=== PATIENT | male | born 1950 | race Two or more races ===

== ENCOUNTER → 2016-08-14 | Outpatient (REF) | payer OTHER ==
[~2016-08-14] MED LIST: /QUIN20TA OR; /WARF5TA OR; ASPI81TA63 OR; BUME1TAB OR; CIPR500T4 OR; COLC0.6T OR; CRES40TA OR; FISH1000 OR; FLAG500T OR; GLUC1000 OR; JANUVIA PO; LOPR100T OR; POTA20TA2 OR; TRIC145T19 OR
[2016-08-17 14:40] LABS: PERCENT SATURATION 16.7 % (19.7-37.4)
== END ==
LOC: M LAB REF 13:21
PROVIDERS: ATTEND Internal Medicine Nephrology
DX: D64.9 Anemia, unspecified (principal)

== ENCOUNTER → 2016-08-19 | Outpatient (CLI) | payer OTHER ==
--- NOTE | 2016-08-19 13:44 | REP ---
RENAL AND BLADDER ULTRASOUND: Real-time sonographic evaluation of the kidneys is performed and demonstrates both kidneys to be normal in size and echotexture, right kidney measuring 10.6 x 5.4 x 4.8 cm and the left kidney 11.5 x 4.6 x 4.8 cm. There is no hydronephrosis bilaterally. A left renal cyst measures 6.0 x 4.2 x 6.5 cm, located laterally in the mid aspect of the left kidney. No definite stones are seen bilaterally. The urinary bladder is distended with no definite mass or calculus. IMPRESSION: No hydronephrosis. Left renal cyst. Signed by Weston Lang MD 08/19/2016 05:39 P
== END ==
LOC: M RAD 10:54
PROVIDERS: ATTEND Internal Medicine Nephrology
DX: N18.3 Chronic kidney disease, stage 3 (moderate) (principal); E11.22 Type 2 diabetes mellitus with diabetic chronic kidney disease; N28.1 Cyst of kidney, acquired

== ENCOUNTER → 2016-09-14 | Outpatient (REF) | payer OTHER | LOC: M SFHCPLAZ 14:16 | PROVIDERS: ATTEND Family Medicine | DX: E11.65 Type 2 diabetes mellitus with hyperglycemia (principal) ==

== ENCOUNTER → 2016-09-28 | Outpatient (REF) | payer OTHER ==
[2016-09-28 12:20] LABS: INR 1.9
== END ==
LOC: M SFHCPLAZ 09:20
PROVIDERS: ATTEND Family Medicine
DX: Z79.01 Long term (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 anticoagulants (principal)

== ENCOUNTER → 2017-03-05 | Outpatient (CLI) | payer OTHER ==
--- NOTE | 2017-03-11 16:09 | SLEEPCENT ---
DATE OF PROCEDURE: 03/05/2017 REFERRING PROVIDER: Dr. Cornelius Bahena INTERPRETATION: Nocturnal polysomnography was performed for the re-determination of CPAP pressure in this patient with obstructive sleep apnea with an apnea-hypopnea index (AHI) of 40, who had symptom recurrence despite being on CPAP at 18 cm of water pressure. A total of 8 hours and 2 minutes of data was reviewed with only 175.5 minutes of sleep identified. Sleep latency was 26 minutes. REM latency was 292.5 minutes. No slow wave sleep was identified. Sleep efficiency was markedly decreased at 36.8%. EKG showed normal sinus rhythm with an average heart rate of 66 beats per minute. Speeding and slowing was noted surrounding some respiratory events. No epileptiform discharge observed. The patient had been fit with a [employer]Med Quattro Air Fit F-10 full face mask of medium size, 16 cm of water pressure was applied to the circuit and the lights were dimmed. CPAP begun at 16 cm of water pressure was eventually increased to 19 cm of water pressure which appeared to be optimal. On pressure his AHI was 0.6 and his LINDSEY was 5.8. Oxygen saturation was 89%. Periodic limb movement index was increased at 20.8. Supine REM sleep was seen on this pressure with a reasonably good wave form. IMPRESSION: 1. Obstructive sleep apnea, severe, recently palliated on CPAP at 19 cm of water pressure. 2. Periodic limb movements, mild/moderate. RECOMMENDATIONS: Recommend resetting the patients CPAP pressure to 19 cm of water. Clinical correlation will be necessary to ensure eradication of symptoms.
== END ==
LOC: M SLEEP 19:35
PROVIDERS: ATTEND Internal Medicine Pulmonary Disease
DX: G47.33 Obstructive sleep apnea (adult) (pediatric) (principal)

== ENCOUNTER → 2017-04-14 | Outpatient (REF) | payer OTHER ==
[~2017-04-14] MED LIST changes: +ALLO10TA PO; +COUM6TAB PO; +INSUHUMDS SC; +METO25TA4 PO; +MONT10TA2 PO; +MULT1TAB10 PO; +OMEP40CA2 PO; +POLY150C4 PO; +RENEXA PO; +TOUJ1.2I SC; +TRUL0.5I SC; +VITA1CAP2 PO
== END ==
LOC: M SFHCPLAZ 11:31
PROVIDERS: ATTEND Family Medicine
DX: R41.3 Other amnesia (principal)

== ENCOUNTER 2017-04-27 08:52 | Day surgery (SDC) | payer OTHER ==
[~2017-04-27] VITALS: Ht 172.7 cm; Wt 137.4 kg
[~2017-04-27 08:52] MED LIST changes: +ACETAMINOPHEN 325 MG TAB PO PRN; +BSS with VANC/TOB/EPI for EYE CASES IR ONE; +CYCLOPENTOLATE 2% OPHTH SOLN 2ML BTL OS ONE; +LIDOCAINE 3.5 % 1ML OPHTH TOPICAL GEL OU ONE; +OFLOXACIN 0.3 % (OCUFLOX) OPTH SOL 5ML OS ONE; +PHENYLEPHRINE 2.5% OPHTH SOL 2ML OS ONE; +PHENYLEPHRINE HCL 10 % OPHTH. SOL 5ML OS PRN; +PROPARACAINE 0.5% OPHTH SOL 15ML OS PRN; +TROPICAMIDE 1% OPHTH SOLN 2ML OS ONE
[2017-04-27] MEDS ORDERED: AcetaZOLAMIDE 500 MG ER CAP PO ONE (09:00)
[2017-04-27] MEDS ORDERED: TRIMETHOBENZAMIDE 300 MG CAP PO PRN (09:00)
[2017-04-27 12:45] VITALS: BP 130/60
[2017-04-27] MEDS ORDERED: ONDANSETRON 4MG/2ML VIAL (J2405) IV PRN (12:45)
[2017-04-27] MEDS ORDERED: fentaNYL 100 MCG/2 ML INJECTION (J3010) As Ordered ONE (12:50)
[2017-04-27] MEDS ORDERED: MIDAZOLAM INJ 2 MG/2 ML VIAL (J2250) As Ordered ONE (12:50)
== END 2017-04-27 12:58 | disposition home or self-care (01) ==
LOC: M SDC 08:52
PROVIDERS: ATTEND Ophthalmology
DX: H26.9 Unspecified cataract (principal); I11.9 Hypertensive heart disease without heart failure; I12.9 Hypertensive chronic kidney disease with stage 1 through stage 4 chronic kidney disease, or unspecified chronic kidney disease; E11.40 Type 2 diabetes mellitus with diabetic neuropathy, unspecified; N18.4 Chronic kidney disease, stage 4 (severe); E78.00 Pure hypercholesterolemia, unspecified; M10.371 Gout due to renal impairment, right ankle and foot; K58.9 Irritable bowel syndrome, unspecified; K21.9 Gastro-esophageal reflux disease without esophagitis; D64.9 Anemia, unspecified; F41.9 Anxiety disorder, unspecified; F32.9 Major depressive disorder, single episode, unspecified; E66.01 Morbid (severe) obesity due to excess calories; R06.83 Snoring; I50.32 Chronic diastolic (congestive) heart failure; G47.33 Obstructive sleep apnea (adult) (pediatric); R41.3 Other amnesia; Z79.899 Other long term (current) drug therapy; Z79.82 Long term (current) use of aspirin; Z79.4 Long term (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 insulin; Z87.891 Personal history of nicotine dependence; Z86.718 Personal history of other venous thrombosis and embolism

== ENCOUNTER → 2017-05-19 | Outpatient (CLI) | payer OTHER ==
[~2017-05-19] MED LIST changes: -/QUIN20TA OR; -/WARF5TA OR; -ACETAMINOPHEN 325 MG TAB PO PRN; -ALLO10TA PO; -ASPI81TA63 OR; -BSS with VANC/TOB/EPI for EYE CASES IR ONE; -BUME1TAB OR; -CIPR500T4 OR; -COLC0.6T OR; -COUM6TAB PO; -CRES40TA OR; -CYCLOPENTOLATE 2% OPHTH SOLN 2ML BTL OS ONE; -FISH1000 OR; -FLAG500T OR; +GASTROGRAFIN SOLUTION 30ML (Q9963) As Ordered; -GLUC1000 OR; -INSUHUMDS SC; -JANUVIA PO; -LIDOCAINE 3.5 % 1ML OPHTH TOPICAL GEL OU ONE; -LOPR100T OR; -METO25TA4 PO; -MONT10TA2 PO; -MULT1TAB10 PO; -OFLOXACIN 0.3 % (OCUFLOX) OPTH SOL 5ML OS ONE; -OMEP40CA2 PO; -PHENYLEPHRINE 2.5% OPHTH SOL 2ML OS ONE; -PHENYLEPHRINE HCL 10 % OPHTH. SOL 5ML OS PRN; -POLY150C4 PO; -POTA20TA2 OR; -PROPARACAINE 0.5% OPHTH SOL 15ML OS PRN; -RENEXA PO; -TOUJ1.2I SC; -TRIC145T19 OR; -TROPICAMIDE 1% OPHTH SOLN 2ML OS ONE; -TRUL0.5I SC; -VITA1CAP2 PO
== END ==
LOC: M RAD 06:52
DX: N28.1 Cyst of kidney, acquired (principal); K76.9 Liver disease, unspecified
CPT/HCPCS: Q9963

== ENCOUNTER → 2017-06-24 | Outpatient (REF) | payer OTHER ==
[2017-06-24 20:33] LABS: TROPONIN I < 0.02 NG/ML (< 0.10)
== END ==
LOC: M LABDRWAD 18:47
DX: R07.9 Chest pain, unspecified (principal)

== ENCOUNTER → 2017-08-11 | Outpatient (CLI) | payer MEDICAID | LOC: M RAD 09:25 | DX: N28.1 Cyst of kidney, acquired (principal) | CPT/HCPCS: 76775 ==

== ENCOUNTER → 2017-09-02 | Outpatient (REF) | payer MEDICARE, OTHER ==
[2017-09-02 15:55] LABS: URIC ACID 6.3 MG/DL (3.5-7.2)
[2017-09-02 16:17] LABS: ESTIMATED AVERAGE GLUCOSE 134 MG/DL (60-110); HEMOGLOBIN A1c 6.3 %
[2017-09-02 16:20] LABS: CREATININE, URINE 72.2 MG/DL; MALB URINE SIEMENS 5.9 MG/L; MAU/CREAT RATIO 8.1 MCG/MG (0.0-30.0)
== END ==
LOC: M SFHCPLAZ 14:07
DX: Z51.81 Encounter for therapeutic drug level monitoring (principal); E11.21 Type 2 diabetes mellitus with diabetic nephropathy; N18.3 Chronic kidney disease, stage 3 (moderate); Z79.899 Other long term (current) drug therapy
CPT/HCPCS: 84550

== ENCOUNTER 2017-09-24 12:06 | Emergency (ER) | payer MEDICARE, MEDICAID, OTHER ==
[2017-09-24] MEDS: FUROSEMIDE 100 MG/10 ML VIAL (J1940) IV (12:58)
[2017-09-24 13:03] LABS: BASO % 0.4 % (0.0-1.0); EOS # 0.3 10^3/uL (0.0-0.50); EOS % 3.2 % (0.0-3.0); HEMATOCRIT 39.9 % (42.0-52.0); HEMOGLOBIN 13.7 g/dl (13.5-17.5); IMMATURE GRANULOCYTE % 0.2 % (0-3.0); LYMPH # 1.9 10^3/uL (1.5-4.5); LYMPH % 22.7 % (24.0-44.0); MEAN CORPUSCULAR HGB CONC 34.3 g/dl (32.0-36.5); MEAN CORPUSCULAR VOLUME 93.2 fl (80.0-96.0); MONO # 0.6 10^3/uL (0.0-0.8); MONO % 7.1 % (0.0-5.0); NEUTROPHILS # 5.5 10^3/uL (1.8-7.7); NEUTROPHILS % 66.4 % (36.0-66.0); PLATELET COUNT, AUTOMATED 202 10^3/uL (150-450); RED BLOOD COUNT 4.28 10^6/uL (4.30-6.10); WHITE BLOOD COUNT 8.3 10^3/uL (4.0-10.0)
[2017-09-24 13:18] LABS: ALBUMIN 3.3 GM/DL (3.2-5.2); ALBUMIN/GLOBULIN RATIO 0.72 (1.00-1.93); ALKALINE PHOSPHATASE 149 U/L (45-117); ALT/SGPT 27 U/L (12-78); ANION GAP 6 MEQ/L (8-16); AST/SGOT 19 U/L (7-37); BILIRUBIN,DIRECT 0.1 MG/DL (0.0-0.2); BILIRUBIN,TOTAL 0.6 MG/DL (0.2-1.0); BLOOD UREA NITROGEN 21 MG/DL (7-18); CARBON DIOXIDE LEVEL 29 MEQ/L (21-32); CHLORIDE LEVEL 104 MEQ/L (98-107); CPK CREATINE PHOSPHOKINASE 109 U/L (39-308); CREATININE FOR GFR 1.75 MG/DL (0.70-1.30); GLOMERULAR FILTRATION RATE 41.9 (>49); GLUCOSE, FASTING 102 MG/DL (70-100); POTASSIUM SERUM 3.7 MEQ/L (3.5-5.1); SODIUM LEVEL 139 MEQ/L (136-145); TOTAL PROTEIN 7.9 GM/DL (6.4-8.2); TROPONIN I < 0.02 NG/ML (< 0.10)
[2017-09-24 13:24] LABS: CK-MB VALUE MASS < 1.0 NG/ML (<3.6); MB/CK RELATIVE INDEX 0.91 (< OR =4); NT-PRO BNP 81 PG/ML (<125)
== END 2017-09-24 16:00 | disposition home or self-care (01) ==
LOC: M ED 12:06
DX: I50.9 Heart failure, unspecified (principal); I27.81 Cor pulmonale (chronic); R60.0 Localized edema; J44.9 Chronic obstructive pulmonary disease, unspecified; I13.10 Hypertensive heart and chronic kidney disease without heart failure, with stage 1 through stage 4 chronic kidney disease, or unspecified chronic kidney disease; E78.5 Hyperlipidemia, unspecified; K21.9 Gastro-esophageal reflux disease without esophagitis; N18.4 Chronic kidney disease, stage 4 (severe); G47.33 Obstructive sleep apnea (adult) (pediatric); E66.01 Morbid (severe) obesity due to excess calories; Z86.718 Personal history of other venous thrombosis and embolism; Z87.891 Personal history of nicotine dependence; Z88.8 Allergy status to other drugs, medicaments and biological substances; Z79.899 Other long term (current) drug therapy; Z79.82 Long term (current) use of aspirin; Z79.4 Long term (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 insulin; Z79.01 Long term (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 anticoagulants
CPT/HCPCS: J1940

== ENCOUNTER → 2017-10-20 | Outpatient (CLI) | payer MEDICARE, MEDICAID ==
[2017-10-20 13:48] LABS: D-DIMER QUANT 435.5 ng/ml (<500)
[2017-10-20 14:11] LABS: ANION GAP 11 MEQ/L (8-16); BLOOD UREA NITROGEN 20 MG/DL (7-18); CALCIUM LEVEL 8.6 MG/DL (8.8-10.2); CARBON DIOXIDE LEVEL 26 MEQ/L (21-32); CHLORIDE LEVEL 102 MEQ/L (98-107); CREATININE FOR GFR 2.05 MG/DL (0.70-1.30); GLOMERULAR FILTRATION RATE 34.9 (>49); GLUCOSE, FASTING 101 MG/DL (70-100); POTASSIUM SERUM 3.5 MEQ/L (3.5-5.1); SODIUM LEVEL 139 MEQ/L (136-145)
== END ==
LOC: M LAB 12:53
DX: R06.02 Shortness of breath (principal); N17.9 Acute kidney failure, unspecified
CPT/HCPCS: 80048

== ENCOUNTER → 2017-10-28 | Outpatient (REF) | payer MEDICARE, MEDICAID ==
[2017-10-28 12:44] LABS: ANION GAP 11 MEQ/L (8-16); BLOOD UREA NITROGEN 17 MG/DL (7-18); CALCIUM LEVEL 9.3 MG/DL (8.8-10.2); CARBON DIOXIDE LEVEL 30 MEQ/L (21-32); CHLORIDE LEVEL 100 MEQ/L (98-107); CREATININE FOR GFR 2.17 MG/DL (0.70-1.30); GLOMERULAR FILTRATION RATE 32.7 (>49); GLUCOSE, FASTING 101 MG/DL (70-100); POTASSIUM SERUM 3.2 MEQ/L (3.5-5.1); SODIUM LEVEL 141 MEQ/L (136-145)
== END ==
LOC: M SFHCPLAZ 10:43
DX: E11.65 Type 2 diabetes mellitus with hyperglycemia (principal); Z79.01 Long term (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 anticoagulants
CPT/HCPCS: 80048

== ENCOUNTER → 2017-11-10 | Outpatient (CLI) | payer MEDICARE, MEDICAID ==
[2017-11-10 14:22] LABS: BASO % 0.2 % (0.0-1.0); EOS % 0.1 % (0.0-3.0); HEMATOCRIT 44.8 % (42.0-52.0); HEMOGLOBIN 15.8 g/dl (13.5-17.5); IMMATURE GRANULOCYTE % 0.4 % (0-3.0); LYMPH # 1.4 10^3/uL (1.5-4.5); LYMPH % 8.7 % (24.0-44.0); MEAN CORPUSCULAR HEMOGLOBIN 31.9 pg (27.0-33.0); MEAN CORPUSCULAR HGB CONC 35.3 g/dl (32.0-36.5); MEAN CORPUSCULAR VOLUME 90.5 fl (80.0-96.0); MONO # 1.8 10^3/uL (0.0-0.8); MONO % 10.6 % (0.0-5.0); NEUTROPHILS # 13.2 10^3/uL (1.8-7.7); PLATELET COUNT, AUTOMATED 214 10^3/uL (150-450); RED BLOOD COUNT 4.95 10^6/uL (4.30-6.10); WHITE BLOOD COUNT 16.5 10^3/uL (4.0-10.0)
[2017-11-10 14:36] LABS: ANION GAP 11 MEQ/L (8-16); BLOOD UREA NITROGEN 26 MG/DL (7-18); CALCIUM LEVEL 8.9 MG/DL (8.8-10.2); CARBON DIOXIDE LEVEL 30 MEQ/L (21-32); CHLORIDE LEVEL 92 MEQ/L (98-107); CREATININE FOR GFR 2.71 MG/DL (0.70-1.30); GLOMERULAR FILTRATION RATE 25.3 (>49); GLUCOSE, FASTING 166 MG/DL (70-100); POTASSIUM SERUM 3.3 MEQ/L (3.5-5.1); SODIUM LEVEL 133 MEQ/L (136-145)
[2017-11-10 14:37] LABS: D-DIMER QUANT 409.1 ng/ml (<500)
== END ==
LOC: M LAB 13:17
DX: R25.2 Cramp and spasm (principal); R06.02 Shortness of breath
CPT/HCPCS: 71046

== ENCOUNTER → 2017-11-15 | Outpatient (REF) | payer MEDICARE, MEDICAID ==
[2017-11-15 16:21] LABS: ANION GAP 11 MEQ/L (8-16); BLOOD UREA NITROGEN 32 MG/DL (7-18); CALCIUM LEVEL 8.5 MG/DL (8.8-10.2); CARBON DIOXIDE LEVEL 24 MEQ/L (21-32); CHLORIDE LEVEL 104 MEQ/L (98-107); CREATININE FOR GFR 1.79 MG/DL (0.70-1.30); GLOMERULAR FILTRATION RATE 40.8 (>49); GLUCOSE, FASTING 198 MG/DL (70-100); POTASSIUM SERUM 4.1 MEQ/L (3.5-5.1); SODIUM LEVEL 139 MEQ/L (136-145)
== END ==
LOC: M SFHCPLAZ 14:52
DX: N17.9 Acute kidney failure, unspecified (principal); E87.6 Hypokalemia; E87.1 Hypo-osmolality and hyponatremia
CPT/HCPCS: 80048

== ENCOUNTER → 2017-11-22 | Outpatient (REF) | payer MEDICARE, MEDICAID ==
[2017-11-22 19:17] LABS: ANION GAP 7 MEQ/L (8-16); BLOOD UREA NITROGEN 13 MG/DL (7-18); CALCIUM LEVEL 8.5 MG/DL (8.8-10.2); CARBON DIOXIDE LEVEL 31 MEQ/L (21-32); CHLORIDE LEVEL 103 MEQ/L (98-107); CREATININE FOR GFR 1.45 MG/DL (0.70-1.30); GLUCOSE, FASTING 101 MG/DL (70-100); POTASSIUM SERUM 3.7 MEQ/L (3.5-5.1); SODIUM LEVEL 141 MEQ/L (136-145)
== END ==
LOC: M SFHCPLAZ 14:44
DX: N17.9 Acute kidney failure, unspecified (principal)
CPT/HCPCS: 80048

== ENCOUNTER 2017-12-23 09:51 | Day surgery (SDC) | payer MEDICARE, MEDICAID ==
[~2017-12-23 09:51] MED LIST changes: -GASTROGRAFIN SOLUTION 30ML (Q9963) As Ordered; +LIDOCAINE 2% INJ 100 MG/5 ML SDV (FOR ANES.) As Ordered; +PROPOFOL 200 MG/20 ML VIAL As Ordered
[2017-12-23] MEDS: NS 1,000 ML IV (10:30)
[2017-12-23 10:40] LABS: BEDSIDE GLUCOSE 113 MG/DL (80-115)
== END 2017-12-23 13:14 | disposition home or self-care (01) ==
LOC: M OPP 09:51
DX: Z12.11 Encounter for screening for malignant neoplasm of colon (principal); Z86.010 Personal history of colon polyps; Z80.0 Family history of malignant neoplasm of digestive organs; D12.5 Benign neoplasm of sigmoid colon; D12.3 Benign neoplasm of transverse colon; K57.30 Diverticulosis of large intestine without perforation or abscess without bleeding; K22.70 Barrett's esophagus without dysplasia; K22.8 Other specified diseases of esophagus; I11.0 Hypertensive heart disease with heart failure; I50.9 Heart failure, unspecified; I20.9 Angina pectoris, unspecified; R07.89 Other chest pain; E78.5 Hyperlipidemia, unspecified; E11.9 Type 2 diabetes mellitus without complications; M10.9 Gout, unspecified; K58.9 Irritable bowel syndrome, unspecified; K21.9 Gastro-esophageal reflux disease without esophagitis; R12 Heartburn; Z86.718 Personal history of other venous thrombosis and embolism; I65.29 Occlusion and stenosis of unspecified carotid artery; G62.9 Polyneuropathy, unspecified; R06.2 Wheezing; Z86.711 Personal history of pulmonary embolism; G47.8 Other sleep disorders; G47.30 Sleep apnea, unspecified; R06.83 Snoring; N18.4 Chronic kidney disease, stage 4 (severe); Z87.891 Personal history of nicotine dependence; Z88.8 Allergy status to other drugs, medicaments and biological substances; Z79.82 Long term (current) use of aspirin; Z79.899 Other long term (current) drug therapy; Z79.01 Long term (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 anticoagulants; Z79.4 Long term (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 insulin
CPT/HCPCS: 45385

== ENCOUNTER → 2018-01-03 | Outpatient (REF) | payer MEDICARE, MEDICAID | LOC: M SFHCPLAZ 14:05 | DX: R06.09 Other forms of dyspnea (principal); R53.82 Chronic fatigue, unspecified; E11.65 Type 2 diabetes mellitus with hyperglycemia; Z53.8 Procedure and treatment not carried out for other reasons ==

== ENCOUNTER → 2018-01-04 | Outpatient (REF) | payer MEDICARE, MEDICAID ==
[2018-01-04 12:12] LABS: BASO % 0.4 % (0.0-1.0); EOS # 0.2 10^3/uL (0.0-0.50); EOS % 2.6 % (0.0-3.0); HEMATOCRIT 42.7 % (42.0-52.0); HEMOGLOBIN 15.1 g/dl (13.5-17.5); IMMATURE GRANULOCYTE % 0.4 % (0-3.0); MEAN CORPUSCULAR HEMOGLOBIN 31.7 pg (27.0-33.0); MEAN CORPUSCULAR HGB CONC 35.4 g/dl (32.0-36.5); MEAN CORPUSCULAR VOLUME 89.7 fl (80.0-96.0); MONO # 0.8 10^3/uL (0.0-0.8); NEUTROPHILS # 6.3 10^3/uL (1.8-7.7); NEUTROPHILS % 67.6 % (36.0-66.0); PLATELET COUNT, AUTOMATED 248 10^3/uL (150-450); RED BLOOD COUNT 4.76 10^6/uL (4.30-6.10); RED CELL DISTRIBUTION WIDTH 12.4 % (11.5-14.5); WHITE BLOOD COUNT 9.4 10^3/uL (4.0-10.0)
[2018-01-04 12:33] LABS: ANION GAP 10 MEQ/L (8-16); BLOOD UREA NITROGEN 28 MG/DL (7-18); CARBON DIOXIDE LEVEL 30 MEQ/L (21-32); CHLORIDE LEVEL 98 MEQ/L (98-107); CREATININE FOR GFR 2.12 MG/DL (0.70-1.30); ESTIMATED AVERAGE GLUCOSE 180 MG/DL (60-110); FREE T4 1.09 NG/DL (0.76-1.46); GLOMERULAR FILTRATION RATE 33.5 (>49); GLUCOSE, FASTING 128 MG/DL (70-100); HEMOGLOBIN A1c 7.9 %; POTASSIUM SERUM 3.3 MEQ/L (3.5-5.1); SODIUM LEVEL 138 MEQ/L (136-145)
== END ==
LOC: M SFHCPLAZ 09:35
DX: Z51.81 Encounter for therapeutic drug level monitoring (principal); R06.09 Other forms of dyspnea; R53.82 Chronic fatigue, unspecified; E11.65 Type 2 diabetes mellitus with hyperglycemia
CPT/HCPCS: 84443

== ENCOUNTER → 2018-02-02 | Outpatient (REF) | payer MEDICARE, MEDICAID ==
[2018-02-02 16:14] LABS: ANION GAP 10 MEQ/L (8-16); BLOOD UREA NITROGEN 29 MG/DL (7-18); CALCIUM LEVEL 9.7 MG/DL (8.8-10.2); CARBON DIOXIDE LEVEL 29 MEQ/L (21-32); CHLORIDE LEVEL 95 MEQ/L (98-107); CPK CREATINE PHOSPHOKINASE 84 U/L (39-308); CREATININE FOR GFR 2.34 MG/DL (0.70-1.30); GLOMERULAR FILTRATION RATE 29.9 (>49); GLUCOSE, FASTING 147 MG/DL (70-100); MAGNESIUM LEVEL 2.2 MG/DL (1.8-2.4); POTASSIUM SERUM 4.6 MEQ/L (3.5-5.1); SODIUM LEVEL 134 MEQ/L (136-145)
== END ==
LOC: M SFHCPLAZ 13:01
DX: R25.2 Cramp and spasm (principal)
CPT/HCPCS: 82550

== ENCOUNTER → 2018-06-09 | Outpatient (CLI) | payer MEDICARE, MEDICAID ==
[~2018-06-09] MED LIST changes: +/QUIN20TA OR; +/WARF5TA OR; +ALLO10TA PO; +AMIL5TAB4 PO; +ASPI81TA63 PO; +ATOR40TA75 PO; +AUGM12SS PO; +BUME1TAB OR; +BUME1TAB PO; +BUME1TAB3 PO; +CALC1TAB63 PO; +CIPR500T4 OR; +COLC0.6T OR; +COUM1TAB17 PO; +COUM6TAB PO; +CRES40TA OR; +DOK100TA PO; +FEBU40TA PO; +FISH1000 OR; +FISH100049 PO; +FLAG500T OR; +GLUC1000 OR; +INSUHUMDS SC; +ISOS30TA4 PO; +JANUVIA PO; +JARD1TAB PO; +KLOR20TA42 PO; +LEVE1INJ5 SC; -LIDOCAINE 2% INJ 100 MG/5 ML SDV (FOR ANES.) As Ordered; +LOPR100T OR; +MAGN1CAP PO; +METO25TA PO; +METO25TA4 PO; +MONT10TA2 PO; +MULT1TAB10 PO; +NITR0.4D6 TD; +NITR0.4S14 SL; +OMEP40CA2 PO; +POLY150C4 PO; +POTA20TA2 OR; -PROPOFOL 200 MG/20 ML VIAL As Ordered; +RANE1000 PO; +RENEXA PO; +TOUJ1.2I SC; +TRES1INJ; +TRIC145T19 OR; +TRUL0.5I SC; +VITA100067 PO; +VITA1CAP2 PO
[2018-06-09 12:23] LABS: CREATININE, URINE 19.7 MG/DL; MALB URINE SIEMENS < 5.0 MG/L; MAU/CREAT RATIO 25.3 MCG/MG (0.0-30.0)
[2018-06-09 12:45] LABS: HEMOGLOBIN A1c 10.8 %
--- NOTE | 2018-06-09 15:03 | REP ---
RIGHT KNEE, FIVE VIEWS: HISTORY: Pain. There is no acute fracture or dislocation. There is moderate narrowing of the medial and minimal narrowing of the lateral knee joint space. The patellofemoral joint space is normal in appearance. Osteophytes are present on the tibia and patella. IMPRESSION: Degenerative change as described above. Electronically Signed by Dominick Camilo MD 06/09/2018 03:18 P
== END ==
LOC: M LAB 10:59
PROVIDERS: ATTEND Family Medicine
DX: E11.65 Type 2 diabetes mellitus with hyperglycemia (principal); M17.11 Unilateral primary osteoarthritis, right knee

== ENCOUNTER 2018-07-21 13:21 | Emergency (ER) | payer MEDICARE, MEDICAID ==
[~2018-07-21] VITALS: Ht 172.7 cm; Wt 140.9 kg
[~2018-07-21 13:21] MED LIST changes: -TAMI30CA PO; -ZOFR4TAB16 PO
[2018-07-21] MEDS ORDERED: OSELTAMIVIR PHOSPHATE 30MG CAPSULE PO ONE (14:45)
[2018-07-21 14:48] LABS: BASO # 0.1 10^3/uL (0.0-0.2); BASO % 0.8 % (0.0-1.0); EOS # 0.1 10^3/uL (0.0-0.50); EOS % 1.4 % (0.0-3.0); HEMATOCRIT 50.6 % (42.0-52.0); HEMOGLOBIN 17.1 g/dl (13.5-17.5); LYMPH # 1.2 10^3/uL (1.5-4.5); LYMPH % 16.2 % (24.0-44.0); MEAN CORPUSCULAR HEMOGLOBIN 30.5 pg (27.0-33.0); MEAN CORPUSCULAR HGB CONC 33.8 g/dl (32.0-36.5); MEAN CORPUSCULAR VOLUME 90.4 fl (80.0-96.0); MONO # 1.2 10^3/uL (0.0-0.8); MONO % 16.3 % (0.0-5.0); NEUTROPHILS # 4.7 10^3/uL (1.8-7.7); NEUTROPHILS % 64.9 % (36.0-66.0); PLATELET COUNT, AUTOMATED 188 10^3/uL (150-450); WHITE BLOOD COUNT 7.2 10^3/uL (4.0-10.0)
[2018-07-21] MEDS ORDERED: TAMI30CA PO (14:57)
[2018-07-21 14:58] LABS: CREATININE FOR GFR 2.61 MG/DL (0.70-1.30); GLOMERULAR FILTRATION RATE 26.4 (>49); POTASSIUM SERUM 4.3 MEQ/L (3.5-5.1)
[2018-07-21 14:59] LABS: ALBUMIN 3.4 GM/DL (3.2-5.2); BILIRUBIN,TOTAL 0.6 MG/DL (0.2-1.0); CALCIUM LEVEL 8.9 MG/DL (8.8-10.2)
[2018-07-21] MEDS ORDERED: NS 1,000 ML IV ONE (15:00)
[2018-07-21] MEDS: IPRATROPIUM 0.5MG/ALBUTEROL 2.5MG INH SOL UD 3ML (DUONEB)(J7620) NEB PRN ×3 (15:06→16:18)
--- NOTE | 2018-07-21 15:28 | REP ---
Chest x-ray: Two views. History: Cough and wheezing. Rule out pneumonia. Comparison chest x-ray: November 10, 2017. Findings: The lungs are symmetrically aerated and clear. The pleural angles are sharp. Heart size is normal. The aorta slightly tortuous. There are minimal degenerative changes in the thoracic spine. Impression: No active disease. Electronically Signed by Tristin Juan MD 07/21/2018 03:19 P
[2018-07-21 16:25] VITALS: BP 138/82
[2018-07-21] MEDS ORDERED: ZOFR4TAB16 PO (17:39)
== END 2018-07-21 17:35 | disposition home or self-care (01) ==
LOC: M ED 13:21
DX: J09.X2 Influenza due to identified novel influenza A virus with other respiratory manifestations (principal); I11.0 Hypertensive heart disease with heart failure; I50.9 Heart failure, unspecified; I65.29 Occlusion and stenosis of unspecified carotid artery; K21.9 Gastro-esophageal reflux disease without esophagitis; N18.4 Chronic kidney disease, stage 4 (severe); E11.22 Type 2 diabetes mellitus with diabetic chronic kidney disease; F41.9 Anxiety disorder, unspecified; F32.9 Major depressive disorder, single episode, unspecified; D75.9 Disease of blood and blood-forming organs, unspecified; G47.33 Obstructive sleep apnea (adult) (pediatric); Z86.711 Personal history of pulmonary embolism; Z88.8 Allergy status to other drugs, medicaments and biological substances; Z79.899 Other long term (current) drug therapy; Z79.01 Long term (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 anticoagulants; Z79.82 Long term (current) use of aspirin; Z79.4 Long term (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 insulin; Z87.891 Personal history of nicotine dependence

== ENCOUNTER → 2018-07-21 | Outpatient (REF) | payer MEDICARE, MEDICAID ==
[~2018-07-21] MED LIST changes: +TAMI30CA PO; +ZOFR4TAB16 PO
[2018-07-21 18:49] LABS: BACTERIA, URINE AUTO NEGATIVE (NEGATIVE); RBC, URINE AUTO 1 /HPF (0-3); SQUAMOUS EPITHELIAL CELL UR AU 0 /HPF (0-6); WBC, URINE AUTO 1 /HPF (0-3)
== END ==
LOC: M SFHCPLAZ 17:15
PROVIDERS: ATTEND Family Medicine
DX: R34 Anuria and oliguria (principal)

== ENCOUNTER → 2018-09-29 | Outpatient (REF) | payer MEDICARE, MEDICAID ==
[~2018-09-29] MED LIST changes: -/QUIN20TA OR; -/WARF5TA OR; +ACCU1TAB2 OR; +COUM1TAB17 OR; +TAMI30CA PO; +VITA-183 PO; -VITA1CAP2 PO; +ZOFR4TAB16 PO
== END ==
LOC: M LAB REF 13:24
PROVIDERS: ATTEND Internal Medicine Nephrology
DX: Z80.42 Family history of malignant neoplasm of prostate (principal); Z12.5 Encounter for screening for malignant neoplasm of prostate

== ENCOUNTER → 2019-02-09 | Outpatient (CLI) | payer MEDICARE, MEDICAID ==
[~2019-02-09] MED LIST changes: -FEBU40TA PO; +FEBU40TA4 PO; -OMEP40CA2 PO; +OMEP40CA97 PO
--- NOTE | 2019-02-09 13:03 | REP ---
Right shoulder: Three views. History: Dysfunction of the right rotator cuff. No comparison study. Findings: There is moderate osteoarthritis of the right glenohumeral articulation with sclerosis and spur formation of the humeral head and glenoid. There is also osteoarthritis of the AC joint. The glenohumeral and acromioclavicular joints are normally aligned. Periarticular soft tissues are unremarkable. Impression: Moderate osteoarthritis affecting the glenohumeral and acromioclavicular joints. Electronically Signed by Tristin Juan MD 02/09/2019 01:30 P
== END ==
LOC: M LAB 10:55
PROVIDERS: ATTEND Family Medicine
DX: M19.011 Primary osteoarthritis, right shoulder (principal)

== ENCOUNTER → 2019-02-16 | Outpatient (REF) | payer MEDICARE, MEDICAID ==
[2019-02-16 16:06] LABS: CALCIUM LEVEL 9.6 MG/DL (8.8-10.2); CREATININE FOR GFR 2.7 MG/DL (0.70-1.30); GLOMERULAR FILTRATION RATE 25.3 (>49); MAGNESIUM LEVEL 2.1 MG/DL (1.8-2.4); PHOSPHORUS LEVEL 2.4 MG/DL (2.5-4.9); POTASSIUM SERUM 3.6 MEQ/L (3.5-5.1); URIC ACID 9.3 MG/DL (3.5-7.2)
[2019-02-16 16:12] LABS: TOTAL 25(OH) VITAMIN D 35.3 NG/ML (30.0-100.0)
[2019-02-16 16:13] LABS: PTH INTACT 51.9 PG/ML (18.5-88.0)
== END ==
LOC: M SFHCPLAZ 14:49
PROVIDERS: ATTEND Family Medicine
DX: E11.21 Type 2 diabetes mellitus with diabetic nephropathy (principal); E11.65 Type 2 diabetes mellitus with hyperglycemia; E83.39 Other disorders of phosphorus metabolism; M1A.9XX0 Chronic gout, unspecified, without tophus (tophi); Z12.5 Encounter for screening for malignant neoplasm of prostate
CPT/HCPCS: 36415; 80048; 82306; 83036; 83519; 83735; 83970; 84100; 84550; 93005; G0103

== ENCOUNTER → 2019-03-09 | Outpatient (CLI) | payer MEDICARE, MEDICAID ==
[2019-03-09 11:54] LABS: TOTAL PROTEIN 7.7 GM/DL (6.4-8.2)
[2019-03-09 11:59] LABS: FOLATE 23.4 NG/ML; VITAMIN B12 LEVEL 728 PG/ML
[2019-03-14 00:07] LABS: CERULOPLASMIN 30.4 mg/dL (16.0-31.0); COPPER PLASMA 123 ug/dL (72-166); LEAD BLOOD ADULT 2 ug/dL (0-4); MERCURY LEVEL None Detected ug/L (0.0-14.9); VITAMIN B1 LEVEL WHOLE BLOOD 174.9 nmol/L (66.5-200.0); VITAMIN B6,PYRIDOXAL PHOSPHATE 7.2 ug/L (5.3-46.7); VITAMIN E(ALPHA TOCOPHEROL) 19.8 mg/L (9.0-29.0); VITAMIN E(GAMMA TOCOPHEROL) 1.1 mg/L (0.5-4.9)
[2019-03-14 13:39] LABS: ALBUMIN 3.78 GM/DL (3.29-5.55); ALBUMIN % 49.1 % (55.8-66.1); ALPHA-1-GLOBULIN % 4.3 % (2.9-4.9); ALPHA-1-GLOBULINS 0.33 GM/DL (0.17-0.41); ALPHA-2-GLOBULINS 1.01 GM/DL (0.42-0.99); ALPHA-2-GLOBULINS % 13.1 % (7.1-11.8); BETA-1-GLOBULINS 0.51 GM/DL (0.28-0.60); BETA-1-GLOBULINS % 6.6 % (4.7-7.2); BETA-2-GLOBULINS 0.69 GM/DL (0.19-0.55); BETA-2-GLOBULINS % 8.9 % (3.2-6.5); GAMMA GLOBULINS 1.39 GM/DL (0.65-1.58)
== END ==
LOC: M LAB 10:32
PROVIDERS: ATTEND Psychiatry & Neurology Neurology
DX: G62.9 Polyneuropathy, unspecified (principal); E83.01 Wilson's disease; E53.8 Deficiency of other specified B group vitamins; E51.9 Thiamine deficiency, unspecified
CPT/HCPCS: 36415; 82390; 82525; 82607; 82746; 83655; 83825; 84165; 84207; 84425; 84446; G0463

== ENCOUNTER → 2019-04-07 | Outpatient (CLI) | payer MEDICARE, MEDICAID ==
--- NOTE | 2019-04-07 13:56 | REP ---
MRI cervical spine: 04/07/2019. Indication: Ataxia. Neck pain. Comparison: New none. Technique: Multiplanar short and long TR sequences of the cervical spine were obtained without IV Gadolinium. Findings: There is reversal of the cervical lordosis. Disc desiccation and disc space narrowing are present throughout most pronounced at C6/C7. No abnormal cord signal is present. The left vertebral flow void is intermittently absent. The right vertebral artery is dominant. C2/C3: There is no disc herniation or significant spinal canal / neural foraminal narrowing. C3/C4: There is an asymmetric disc bulge more apparent on the left with left-sided facet arthropathy. There is moderate narrowing of the left neural foramen. C4/C5: There is right-sided uncovertebral and facet hypertrophy which results in mild to moderate right neural foraminal narrowing. There is mild diffuse disc bulge otherwise noted with effacement of the ventral thecal sac. C5/C6: There is a left paracentral/foraminal disc extrusion with very minimal caudal migration superimposed on a diffuse disc bulge. There is moderate to severe left neural foraminal narrowing and minimal flattening of the left ventral lateral cord. C6/C7: Left-sided uncovertebral proliferation and mild diffuse disc bulge are present with mild effacement of the ventral thecal sac. There is moderate to severe left neural foraminal narrowing. C7/T1: There is an asymmetric disc osteophyte complex more pronounced on the right without significant spinal canal narrowing. There is moderate right neural foraminal narrowing. Impression: Multilevel degenerative sequelae of the cervical spine as described most pronounced on the left at C5/C6 and C6/C7. Electronically Signed by Remberto Child DO 04/07/2019 01:47 P
--- NOTE | 2019-04-07 14:16 | REP ---
MRI lumbar spine: 04/07/2019. Indication: Ataxia. Low back pain. Comparison: None. Technique: Multiplanar short and long TR sequences of the lumbar spine were obtained without IV Gadolinium. Findings: There is mild straightening of the lumbar lordosis. Disc space narrowing, disc desiccation and endplate degenerative sequelae are present throughout. The visualized cord is unremarkable. Left renal parapelvic cyst is present. Very minimal thoracolumbar idiopathic scoliosis is noted. There is a transitional lumbosacral segment with partial lumbarization of S1 and a S1/S2 disc. L1/L2: Disc and spur complex, most prominent anteriorly and bilateral facet arthropathy are present. There is a far left lateral/marginal small annular fissure. There is moderate to severe right and moderate left recess narrowing. Moderate bilateral neural foraminal narrowing is present. L2/L3: Diffuse disc and spur complex and mild bilateral facet arthropathy are present with moderate to severe right greater than left recess narrowing. Mild bilateral neural foraminal narrowing is present. L3/L4: Diffuse disc and spur complex and bilateral facet arthropathy are present. There is a small synovial cyst within the right lateral spinal canal. There is severe narrowing of the spinal canal. Moderate bilateral neural foraminal narrowing is present. L4/L5: There is an asymmetric disc and spur complex more prominent on the right with right greater than left facet hypertrophy and ligamental laxity. There is severe right and moderate to severe left recess narrowing. Moderate bilateral neural foraminal narrowing is noted. L5/S1: Diffuse disc and spur complex and bilateral facet arthropathy are present with moderate to severe left and moderate right recess narrowing. Moderate bilateral neural foraminal narrowing is present. Impression: Multilevel degenerative sequelae of the lumbar spine as described most pronounced at L3/L4 with severe spinal canal narrowing. Transitional lumbosacral segment as described. Any future surgery/procedures should correlate with plain film radiography accordingly. Electronically Signed by Remberto Child DO 04/07/2019 02:07 P
== END ==
LOC: M PLARAD 09:56
PROVIDERS: ATTEND Psychiatry & Neurology Neurology
DX: M54.2 Cervicalgia (principal); M43.02 Spondylolysis, cervical region; R26.0 Ataxic gait; M48.062 Spinal stenosis, lumbar region with neurogenic claudication; M54.5 Low back pain

== ENCOUNTER → 2019-05-23 | Outpatient (REF) | payer MEDICARE, MEDICAID ==
[2019-05-23 18:18] LABS: ALBUMIN 2.9 GM/DL (3.2-5.2); CALCIUM LEVEL 8.9 MG/DL (8.8-10.2); CREATININE FOR GFR 2.23 MG/DL (0.70-1.30); GLOMERULAR FILTRATION RATE 31.5 (>49); MAGNESIUM LEVEL 1.9 MG/DL (1.8-2.4); PHOSPHORUS LEVEL 2.4 MG/DL (2.5-4.9); POTASSIUM SERUM 3.4 MEQ/L (3.5-5.1); URIC ACID 8.5 MG/DL (3.5-7.2)
== END ==
LOC: M LAB REF 17:16
PROVIDERS: ATTEND Internal Medicine Nephrology
DX: N18.3 Chronic kidney disease, stage 3 (moderate) (principal); E79.0 Hyperuricemia without signs of inflammatory arthritis and tophaceous disease

== ENCOUNTER → 2019-07-10 | Outpatient (CLI) | payer MEDICARE, MEDICAID ==
[~2019-07-10] MED LIST changes: -MONT10TA2 PO; +MONT10TA4 PO
[2019-07-10 13:44] LABS: INR 2.24; PROTHROMBIN TIME 24.6 SECONDS (11.8-14.0)
== END ==
LOC: M PLALAB 11:34
PROVIDERS: ATTEND Student in an Organized Health Care Education/Training Program
DX: Z51.81 Encounter for therapeutic drug level monitoring (principal); Z79.01 Long term (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 anticoagulants

== ENCOUNTER → 2019-07-27 | Outpatient (CLI) | payer MEDICARE, MEDICAID ==
[2019-07-27 17:54] LABS: HEMATOCRIT 45.9 % (42.0-52.0); MEAN CORPUSCULAR HEMOGLOBIN 31.9 pg (27.0-33.0); MEAN CORPUSCULAR HGB CONC 34.9 g/dl (32.0-36.5); MEAN CORPUSCULAR VOLUME 91.4 fl (80.0-96.0); PLATELET COUNT, AUTOMATED 237 10^3/uL (150-450); RED BLOOD COUNT 5.02 10^6/uL (4.30-6.10); WHITE BLOOD COUNT 11.4 10^3/uL (4.0-10.0)
[2019-07-27 18:00] LABS: ALBUMIN 2.9 GM/DL (3.2-5.2); ALT/SGPT 41 U/L (12-78); BILIRUBIN,TOTAL 0.7 MG/DL (0.2-1.0); BLOOD UREA NITROGEN 30 MG/DL (7-18); CALCIUM LEVEL 9.5 MG/DL (8.8-10.2); CARBON DIOXIDE LEVEL 29 MEQ/L (21-32); CHLORIDE LEVEL 98 MEQ/L (98-107); CK-MB VALUE MASS < 1.0 NG/ML (<3.6); CPK CREATINE PHOSPHOKINASE 115 U/L (39-308); CREATININE FOR GFR 2.17 MG/DL (0.70-1.30); FREE T4 1.23 NG/DL (0.76-1.46); GLOMERULAR FILTRATION RATE 32.6 (>49); GLUCOSE, FASTING 142 MG/DL (70-100); MB/CK RELATIVE INDEX 0.87 (< OR =4); NT-PRO BNP 90 PG/ML (<125); POTASSIUM SERUM 3.6 MEQ/L (3.5-5.1); SODIUM LEVEL 134 MEQ/L (136-145); TOTAL PROTEIN 7.2 GM/DL (6.4-8.2); TROPONIN I < 0.02 NG/ML (< 0.10)
--- NOTE | 2019-07-27 19:24 | REPVR ---
PROCEDURE INFORMATION: Exam: CT Chest Without Contrast Exam date and time: 07/27/2019 6:19 PM Age: 68 years old Clinical indication: Shortness of breath; Additional info: Shortness of breath ? pe TECHNIQUE: Imaging protocol: Computed tomography of the chest without contrast. 3D rendering: MIP and/or 3D reconstructed images were created by the technologist. Radiation optimization: All CT scans at this facility use at least one of these dose optimization techniques: automated exposure control; mA and/or kV adjustment per patient size (includes targeted exams where dose is matched to clinical indication); or iterative reconstruction. COMPARISON: CT Chest without contrast 10/05/2017 1:16 PM FINDINGS: Lungs: 3 mm nodule in the right upper lobe. Pleural space: Unremarkable. No pneumothorax. No pleural effusion. Heart: Coronary vasculature calcifications. Aorta: Unremarkable. No aortic aneurysm. Lymph nodes: Unremarkable. No enlarged lymph nodes. Bones/joints: Unremarkable. No acute fracture. Soft tissues: Unremarkable. IMPRESSION: No acute abnormality. Nodule in the right upper lobe measuring 3 mm.For patients at low risk (minimal or absent history of smoking and of other known risk factors), no routine follow-up is indicated. For patients at high risk (history of smoking or of other known risk factors), consider optional CT at 12 months. (Iveth et al., Fleischner Society, 2017) Electronically signed by: Bunny Richards On 07/27/2019 19:24:22 PM
== END ==
LOC: M LAB 15:11
PROVIDERS: ATTEND Internal Medicine
DX: R91.1 Solitary pulmonary nodule (principal); R06.02 Shortness of breath; Z79.01 Long term (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 anticoagulants; Z79.899 Other long term (current) drug therapy
CPT/HCPCS: 36415; 71250; 80053; 82550; 82553; 83880; 84439; 84443; 84484; 85027; 85610; 93005; G0463

== ENCOUNTER → 2019-07-27 | Outpatient (REF) | payer MEDICARE, MEDICAID | LOC: M SFHCPLAZ 14:43 | DX: R06.02 Shortness of breath (principal); Z79.01 Long term (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 anticoagulants; Z53.8 Procedure and treatment not carried out for other reasons ==

== ENCOUNTER → 2019-08-08 | Outpatient (CLI) | payer MEDICARE, MEDICAID ==
[2019-08-08 17:54] LABS: CHOLESTEROL RISK RATIO 4.073 (<5)
== END ==
LOC: M PLALAB 13:54
PROVIDERS: ATTEND Nurse Practitioner Family
DX: E78.2 Mixed hyperlipidemia (principal)

== ENCOUNTER → 2019-09-27 | Outpatient (CLI) | payer MEDICARE, MEDICAID | LOC: M LABSMTC 10:53 | PROVIDERS: ATTEND Family Medicine | DX: Z11.59 Encounter for screening for other viral diseases (principal) ==

== ENCOUNTER → 2019-09-27 | Outpatient (REF) | payer MEDICARE, MEDICAID ==
[~2019-09-27] MED LIST changes: +ASPI-161 PO; +ASPI81TAEC PO; +ATOR80TA59 PO; +CLOP75TA2 PO; -COUM6TAB PO; +COUM6TAB10 PO; +DIGO0.123 PO; -DOK100TA PO; +DOK100TA2 PO; +FEBU40TA2 PO; +GABA-282 PO; +HUMU500S2 SC; +ISOS1TAB35 PO; +ISOS1TAB36 PO; -ISOS30TA4 PO; +KLOR10TA76 PO; +MAGN500T12 PO; +MONT10TA10 PO; -MONT10TA4 PO; +OMEG10002 PO; +POTA20TA6 PO; +RISATAB3 PO; +SITA50TAB PO; +VITMTA PO; +WARF-20 PO; +WARF-23 PO; +ZYLO300T6 PO
== END ==
LOC: M SFHCPLAZ 16:55
PROVIDERS: ATTEND Student in an Organized Health Care Education/Training Program
DX: L30.8 Other specified dermatitis (principal); R21 Rash and other nonspecific skin eruption; Z11.59 Encounter for screening for other viral diseases
CPT/HCPCS: 11104; 88305; G0463; U0003

== ENCOUNTER → 2019-09-28 | Outpatient (CLI) | payer MEDICARE, MEDICAID ==
[~2019-09-28] MED LIST changes: -ASPI-161 PO; -ASPI81TAEC PO; -ATOR80TA59 PO; -CLOP75TA2 PO; +COUM6TAB PO; -COUM6TAB10 PO; -DIGO0.123 PO; +DOK100TA PO; -DOK100TA2 PO; -FEBU40TA2 PO; -GABA-282 PO; -HUMU500S2 SC; -ISOS1TAB35 PO; -ISOS1TAB36 PO; +ISOS30TA4 PO; -KLOR10TA76 PO; -MAGN500T12 PO; -MONT10TA10 PO; +MONT10TA4 PO; -OMEG10002 PO; -POTA20TA6 PO; -RISATAB3 PO; -SITA50TAB PO; -VITMTA PO; -WARF-20 PO; -WARF-23 PO; -ZYLO300T6 PO
[2019-09-30 00:07] LABS: ANA (HEP2) Positive (.)
== END ==
LOC: M LAB 09:09
PROVIDERS: ATTEND Dermatology
DX: R21 Rash and other nonspecific skin eruption (principal)

== ENCOUNTER → 2019-10-17 | Outpatient (CLI) | payer MEDICARE, MEDICAID ==
[~2019-10-17] MED LIST changes: -COUM6TAB PO; +COUM6TAB10 PO
[2019-10-17 12:07] LABS: CHOLESTEROL RISK RATIO 4.157 (<5)
== END ==
LOC: M PLALAB 08:45
PROVIDERS: ATTEND Nurse Practitioner Family
DX: E78.2 Mixed hyperlipidemia (principal)

== ENCOUNTER → 2019-10-19 | Outpatient (REF) | payer MEDICARE, MEDICAID ==
[~2019-10-19] MED LIST changes: +ASPI-161 PO; +ASPI81TAEC PO; +ATOR80TA59 PO; +CLOP75TA2 PO; +DIGO0.123 PO; -DOK100TA PO; +DOK100TA2 PO; +FEBU40TA2 PO; +GABA-282 PO; +HUMU500S2 SC; +ISOS1TAB35 PO; +ISOS1TAB36 PO; -ISOS30TA4 PO; +KLOR10TA76 PO; +MAGN500T12 PO; +MONT10TA10 PO; -MONT10TA4 PO; +OMEG10002 PO; +POTA20TA6 PO; +RISATAB3 PO; +SITA50TAB PO; +VITMTA PO; +WARF-20 PO; +WARF-23 PO; +ZYLO300T6 PO
[2019-10-19 17:55] LABS: BASO # 0.1 10^3/uL (0.0-0.2); BASO % 0.6 % (0.0-1.0); EOS # 0.3 10^3/uL (0.0-0.5); EOS % 3.4 % (0.0-3.0); HEMATOCRIT 43.3 % (42.0-52.0); HEMOGLOBIN 14.5 g/dl (13.5-17.5); LYMPH # 1.8 10^3/uL (1.5-5.0); LYMPH % 20.8 % (24.0-44.0); MEAN CORPUSCULAR HEMOGLOBIN 31.9 pg (27.0-33.0); MEAN CORPUSCULAR HGB CONC 33.5 g/dl (32.0-36.5); MEAN CORPUSCULAR VOLUME 95.4 fl (80.0-96.0); MONO # 0.6 10^3/uL (0.0-0.8); MONO % 6.8 % (0.0-5.0); NEUTROPHILS # 5.8 10^3/uL (1.5-8.5); NEUTROPHILS % 67.9 % (36.0-66.0); PLATELET COUNT, AUTOMATED 215 10^3/uL (150-450); RED BLOOD COUNT 4.54 10^6/uL (4.30-6.10); WHITE BLOOD COUNT 8.5 10^3/uL (4.0-10.0)
[2019-10-19 18:02] LABS: BILIRUBIN,TOTAL 0.5 MG/DL (0.2-1.0); C REACTIVE PROTEIN QUANTITATIV 1.52 MG/DL (0.00-0.30); CALCIUM LEVEL 9.2 MG/DL (8.8-10.2); CREATININE FOR GFR 2.07 MG/DL (0.70-1.30); GLOMERULAR FILTRATION RATE 34.3 (>49); POTASSIUM SERUM 3.7 MEQ/L (3.5-5.1)
[2019-10-19 18:18] LABS: ERYTHROCYTE SEDIMENTATION RATE 44 mm/hr (0-20)
[2019-10-24 13:33] LABS: ANTI DS-DNA AB Negative (Negative); ANTI-HISTONE ANTIBODIES 3.3 Units (0.0-0.9); RNP ANTIBODY 0.2 AI (0.0-0.9); SMITHS ANTIBODY < 0.2 AI (0.0-0.9); SSA SJOGRENS A <0.2 AI (0.0-0.9); SSB SJOGRENS B <0.2 AI (0.0-0.9)
== END ==
LOC: M SFHCRHEU 12:18
PROVIDERS: ATTEND Internal Medicine
DX: R76.8 Other specified abnormal immunological findings in serum (principal)
CPT/HCPCS: 36415; 80053; 83520; 85025; 85652; 86140; 86160; 86225; 86235; 86255; G0463

== ENCOUNTER → 2019-10-30 | Outpatient (CLI) | payer MEDICARE, MEDICAID ==
[~2019-10-30] MED LIST changes: -ASPI-161 PO; -ASPI81TAEC PO; -ATOR80TA59 PO; +CLOP75TA2; -CLOP75TA2 PO; -DIGO0.123 PO; +DOK100TA PO; -DOK100TA2 PO; -FEBU40TA2 PO; -GABA-282 PO; +GABA-843; -HUMU500S2 SC; +HUMU500S2 SQ; -ISOS1TAB35 PO; -ISOS1TAB36 PO; +ISOS30TA4 PO; +ISOS60TA2; -KLOR10TA76 PO; -MAGN500T12 PO; +METO25TA4; -MONT10TA10 PO; +MONT10TA4 PO; -OMEG10002 PO; -POTA20TA6 PO; -RISATAB3 PO; -SITA50TAB PO; -VITMTA PO; -WARF-20 PO; -WARF-23 PO; +ZYLO300T6; -ZYLO300T6 PO
[2019-10-30 13:35] LABS: CREATININE FOR GFR 2.08 MG/DL (0.70-1.30); GLOMERULAR FILTRATION RATE 34.1 (>49)
== END ==
LOC: M PLALAB 10:42
PROVIDERS: ATTEND Internal Medicine Cardiovascular Disease
DX: Z79.899 Other long term (current) drug therapy (principal)

== ENCOUNTER 2020-01-23 10:34 | Emergency (ER) | payer MEDICARE, MEDICAID ==
[~2020-01-23] VITALS: Ht 177.8 cm; Wt 154.4 kg
[~2020-01-23 10:34] MED LIST changes: -CLOP75TA2; -GABA-843; -HUMU500S2 SQ; -ISOS60TA2; -METO25TA4; -ZYLO300T6
[2020-01-23] MEDS ORDERED: HUMU500S2 SQ (11:57)
[2020-01-23] MEDS ORDERED: GABA-843 (11:57)
[2020-01-23] MEDS ORDERED: ISOS60TA2 (11:57)
[2020-01-23] MEDS ORDERED: CLOP75TA2 (11:57)
[2020-01-23] MEDS ORDERED: METO25TA4 (11:57)
[2020-01-23 12:06] LABS: BASO # 0.1 10^3/uL (0.0-0.2); BASO % 0.7 % (0.0-1.0); EOS # 0.3 10^3/uL (0.0-0.5); EOS % 3.2 % (0.0-3.0); HEMATOCRIT 48.3 % (42.0-52.0); HEMOGLOBIN 16.3 g/dl (13.5-17.5); LYMPH # 1.7 10^3/uL (1.5-5.0); LYMPH % 18.1 % (24.0-44.0); MEAN CORPUSCULAR HEMOGLOBIN 32.1 pg (27.0-33.0); MEAN CORPUSCULAR HGB CONC 33.7 g/dl (32.0-36.5); MEAN CORPUSCULAR VOLUME 95.3 fl (80.0-96.0); MONO # 0.7 10^3/uL (0.0-0.8); MONO % 7.2 % (0.0-5.0); NEUTROPHILS # 6.7 10^3/uL (1.5-8.5); NEUTROPHILS % 70.4 % (36.0-66.0); PLATELET COUNT, AUTOMATED 213 10^3/uL (150-450); RED BLOOD COUNT 5.07 10^6/uL (4.30-6.10); WHITE BLOOD COUNT 9.6 10^3/uL (4.0-10.0)
[2020-01-23 12:39] LABS: ALBUMIN 3.3 GM/DL (3.2-5.2); BILIRUBIN,DIRECT 0.2 MG/DL (0.0-0.2); BILIRUBIN,TOTAL 0.8 MG/DL (0.2-1.0); TOTAL PROTEIN 7.5 GM/DL (6.4-8.2)
--- NOTE | 2020-01-23 13:30 | REPVR ---
PROCEDURE INFORMATION: Exam: CT Abdomen And Pelvis Without Contrast Exam date and time: 01/23/2020 12:59 PM Age: 69 years old Clinical indication: Abdominal pain; Generalized; Additional info: Abd pain with diarrhea; Ckd unable to have contrast; TECHNIQUE: Imaging protocol: Computed tomography of the abdomen and pelvis without contrast. Radiation optimization: All CT scans at this facility use at least one of these dose optimization techniques: automated exposure control; mA and/or kV adjustment per patient size (includes targeted exams where dose is matched to clinical indication); or iterative reconstruction. COMPARISON: CT ABD PELVIS W/O CONTRAST 05/19/2017 9:10 AM FINDINGS: Liver: Moderate diffuse hypoattenuation of the liver is present consistent with hepatic steatosis. Gallbladder and bile ducts: Normal. No calcified stones. No ductal dilation. Pancreas: Moderate pancreatic atrophy. Spleen: Normal. No splenomegaly. Adrenals: Normal. No mass. Kidneys and ureters: Left renal probable benign simple cysts, largest 6.9 cm, right renal probable benign cyst, 2.1 cm. 5.5 mm lateral mid left renal exophytic isoattenuating lesion, stable. Stomach and bowel: Sigmoid and distal descending colonic diverticula are present without evidence of diverticulitis. Appendix: The vermiform appendix is normal. Intraperitoneal space: Unremarkable. No free air. No significant fluid collection. Vasculature: Moderate aortic atherosclerotic calcification without aneurysm. The iliac arteries show moderate bilateral atherosclerotic calcifications without evidence of aneurysm. Atherosclerotic calcifications are present involving the RCA coronary artery. Lymph nodes: No enlarged lymph nodes. Bladder: Unremarkable as visualized. Reproductive: Unremarkable as visualized. Bones/joints: Anterior bridging bilateral sacroiliac joint marginal osteophytes. L4-L5 and L5-S1 spondylosis with bilateral neural foraminal stenosis. Left femoral neck herniation pit, a normal variant. Soft tissues: Unremarkable. IMPRESSION: 1. Fatty infiltration of the liver. 2. Bilateral renal probable benign simple cyst. 3. Small indeterminate left renal lesion, stable. 4. Diverticulosis. 5. Coronary atherosclerosis. COMMENTS: Consistent with the [employer]'s Incidental Findings Committee white paper (J Am Klaudia Radiol 2018): Any incidental renal lesion less than 1 cm or classified as too small to characterize, or any incidental cystic renal lesion characterized as simple-appearing, is likely benign. No follow-up imaging is recommended for these lesions per consensus recommendations based on imaging criteria. Electronically signed by: Nathen Castañeda On 01/23/2020 13:30:36 PM
[2020-01-23 15:22] VITALS: BP 108/56
--- NOTE | 2020-01-24 13:59 | ED PDOC ---
Post-Departure Follow-Up ct abd/p faxed to dr yadav for fu Lorrie Avendaño MD Jan 24, 2020 13:59
[2020-03-13] MEDS ORDERED: ZYLO300T6 (09:57)
== END 2020-01-23 15:25 | disposition home or self-care (01) ==
LOC: M ED 10:34
DX: R10.9 Unspecified abdominal pain (principal); I50.9 Heart failure, unspecified; E11.9 Type 2 diabetes mellitus without complications; I10 Essential (primary) hypertension; E78.5 Hyperlipidemia, unspecified; K21.9 Gastro-esophageal reflux disease without esophagitis; N18.2 Chronic kidney disease, stage 2 (mild); Z95.5 Presence of coronary angioplasty implant and graft; K76.0 Fatty (change of) liver, not elsewhere classified; K57.30 Diverticulosis of large intestine without perforation or abscess without bleeding; I25.10 Atherosclerotic heart disease of native coronary artery without angina pectoris; R93.421 Abnormal radiologic findings on diagnostic imaging of right kidney; R93.422 Abnormal radiologic findings on diagnostic imaging of left kidney; Z79.82 Long term (current) use of aspirin; Z79.4 Long term (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 insulin; Z79.01 Long term (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 anticoagulants; Z79.899 Other long term (current) drug therapy; Z88.8 Allergy status to other drugs, medicaments and biological substances

== ENCOUNTER → 2020-01-24 | Outpatient (REF) | payer MEDICARE, MEDICAID ==
[~2020-01-24] MED LIST changes: +CLOP75TA2; +GABA-843; +HUMU500S2 SQ; +ISOS60TA2; +METO25TA4; +ZYLO300T6
== END ==
LOC: M LAB REF 12:39
PROVIDERS: ATTEND Nurse Practitioner Family
DX: R19.7 Diarrhea, unspecified (principal)

== ENCOUNTER → 2020-01-31 | Outpatient (REF) | payer MEDICARE, MEDICAID ==
[2020-02-09 15:07] LABS: CALPROTECTIN STOOL 106 ug/g (0-120); FATS NEUTRAL Normal (.); FATS TOTAL Normal (.); PANCREATIC ELASTASE STOOL 252 (>200)
== END ==
LOC: M LAB REF 12:37
PROVIDERS: ATTEND Physician Assistant Medical
DX: R19.7 Diarrhea, unspecified (principal)

== ENCOUNTER → 2020-03-21 | Outpatient (CLI) | payer MEDICARE, MEDICAID | LOC: M LABSMTC 11:35 | PROVIDERS: ATTEND Anesthesiology | DX: Z01.812 Encounter for preprocedural laboratory examination (principal); Z20.828 Contact with and (suspected) exposure to other viral communicable diseases | CPT/HCPCS: C9803; U0003 ==

== ENCOUNTER 2020-03-26 07:41 | Day surgery (SDC) | payer MEDICARE, MEDICAID ==
[~2020-03-26] VITALS: Ht 180.3 cm; Wt 152.4 kg
[~2020-03-26 07:41] MED LIST changes: +NS 1,000 ML IV ONE; +SIMETHICONE 40MG/0.6ML DROPS 30ML As Ordered ONE
[2020-03-26] MEDS ORDERED: propofoL 200 MG/20 ML VIAL As Ordered ONE ×3 (08:11→08:58)
[2020-03-26] MEDS ORDERED: LIDOCAINE 2% 100MG/5ML SDV (FOR ANES.) As Ordered ONE (08:12)
--- NOTE | 2020-03-26 09:09 | ROOR ---
Patient Name: Myriam Galindo Procedure Date: 03/26/2020 8:24 AM Date of : 1950 Age: 69 Room: [facility] Gender: Male Note Status: Finalized Procedure: Colonoscopy Indications: Change in bowel habits, Chronic diarrhea Providers: Nolberto PIKE MD Referring MD: Marc Frey Do Requesting Provider: Medicines: Monitored Anesthesia Care Complications: No immediate complications. Procedure: Pre-Anesthesia Assessment: - The heart rate, respiratory rate, oxygen saturations, blood pressure, adequacy of pulmonary ventilation, and response to care were monitored throughout the procedure. The Colonoscope was introduced through the anus and advanced to 10 cm into the ileum. The colonoscopy was performed without difficulty. The patient tolerated the procedure well. The quality of the bowel preparation was good. Findings: The perianal and digital rectal examinations were normal. Four semi-sessile polyps were found in the splenic flexure and ileocecal valve. The polyps were 4 to 6 mm in size. These polyps were removed with a cold snare. Resection and retrieval were complete. To prevent bleeding after the polypectomy, six hemostatic clips were successfully placed. There was no bleeding at the end of the procedure. Multiple small and large-mouthed diverticula were found in the sigmoid colon and descending colon. Small Internal Hemorrhoids. Biopsies for histology were taken with a cold forceps for evaluation of microscopic colitis. The terminal ileum appeared normal. Impression: - Four 4 to 6 mm polyps at the splenic flexure and at the ileocecal valve, removed with a cold snare. Resected and retrieved. Clips were placed. - Moderate diverticulosis in the sigmoid colon and in the descending colon. - Small Internal Hemorrhoids. - The colon was otherwise normal. - The examined portion of the ileum was normal. - Biopsies were taken with a cold forceps for evaluation of microscopic colitis. Recommendation: - Repeat colonoscopy in 3 years for surveillance. - Telephone endoscopist for pathology results in 2 weeks. - Imodium 1 tablet PO BID. Nolberto Pike MD Nolberto PIKE MD 03/26/2020 9:08:34 AM Electronically signed by Nolberto PIKE MD Number of Addenda: 0 Note Initiated On: 03/26/2020 8:24 AM Estimated Blood Loss: Estimated blood loss: none.
[2020-03-26 09:35] VITALS: BP 121/58
== END 2020-03-26 09:40 | disposition home or self-care (01) ==
LOC: M OPP 07:41
PROVIDERS: ATTEND Internal Medicine Gastroenterology
DX: D12.0 Benign neoplasm of cecum (principal); D12.3 Benign neoplasm of transverse colon; K63.89 Other specified diseases of intestine; K57.30 Diverticulosis of large intestine without perforation or abscess without bleeding; K64.8 Other hemorrhoids; K52.9 Noninfective gastroenteritis and colitis, unspecified; R19.4 Change in bowel habit; I50.9 Heart failure, unspecified; E11.9 Type 2 diabetes mellitus without complications; G47.30 Sleep apnea, unspecified; Z80.0 Family history of malignant neoplasm of digestive organs; Z79.4 Long term (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 insulin; Z79.01 Long term (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 anticoagulants; Z79.899 Other long term (current) drug therapy

== ENCOUNTER → 2020-04-25 | Outpatient (CLI) | payer MEDICARE, MEDICAID ==
[~2020-04-25] MED LIST changes: -DOK100TA PO; +DOK100TA2 PO; -MONT10TA4 PO; +MONT5TAB2 PO; -NS 1,000 ML IV ONE; -SIMETHICONE 40MG/0.6ML DROPS 30ML As Ordered ONE
[2020-04-25 18:24] LABS: ALBUMIN 3.3 GM/DL (3.2-5.2); BILIRUBIN,TOTAL 0.6 MG/DL (0.2-1.0); CHOLESTEROL RISK RATIO 3.952 (<5); CREATININE FOR GFR 2.03 MG/DL (0.70-1.30); POTASSIUM SERUM 3.8 MEQ/L (3.5-5.1); TOTAL PROTEIN 7.2 GM/DL (6.4-8.2)
== END ==
LOC: M PLALAB 15:03
PROVIDERS: ATTEND Nurse Practitioner Family
DX: E78.2 Mixed hyperlipidemia (principal)

== ENCOUNTER 2020-05-02 12:01 | Inpatient (IN) | payer MEDICARE, MEDICAID ==
[~2020-05-02] VITALS: Ht 177.8 cm; Wt 147.7 kg
[~2020-05-02 12:01] MED LIST changes: -CLOP75TA2; +CLOP75TA2 PO; -GABA-843; +GABA-843 PO; +HUMU500S2 SC; -HUMU500S2 SQ; -ISOS60TA2; +ISOS60TA2 PO; -METO25TA4; -ZYLO300T6; +ZYLO300T6 PO
[2020-05-02 13:05] LABS: BASO % 0.2 % (0.0-1.0); EOS % 0.1 % (0.0-3.0); HEMATOCRIT 46.9 % (42.0-52.0); HEMOGLOBIN 15.8 g/dl (13.5-17.5); LYMPH # 0.6 10^3/uL (1.5-5.0); LYMPH % 3.4 % (24.0-44.0); MEAN CORPUSCULAR HEMOGLOBIN 32.2 pg (27.0-33.0); MEAN CORPUSCULAR HGB CONC 33.7 g/dl (32.0-36.5); MEAN CORPUSCULAR VOLUME 95.5 fl (80.0-96.0); MONO # 0.9 10^3/uL (0.0-0.8); MONO % 4.6 % (0.0-5.0); NEUTROPHILS # 17.4 10^3/uL (1.5-8.5); PLATELET COUNT, AUTOMATED 173 10^3/uL (150-450); RED BLOOD COUNT 4.91 10^6/uL (4.30-6.10); WHITE BLOOD COUNT 19.1 10^3/uL (4.0-10.0)
[2020-05-02 13:15] LABS: INR 2.21
[2020-05-02 13:16] LABS: PARTIAL THROMBOPLASTIN TIME 48.6 SECONDS (24.2-38.5)
--- NOTE | 2020-05-02 13:18 | REP ---
INDICATION: CVA - Nursing interventions must not delay CT. COMPARISON: None. TECHNIQUE: Helical scanning is acquired. 5 mm axial images were reformatted. Coronal MPR images were generated. FINDINGS: Bone window settings demonstrate an intact bony calvarium. There is no evidence of skull fracture or incidental bony calvarial lesion. The visualized paranasal sinuses appear clear. No intraorbital abnormality is seen. On soft tissue window setting images; the lateral, third, and fourth ventricles are normal in size and position. Lang-white differentiation pattern is normal above and below the tentorium. There are is no evidence of intracranial hemorrhage. No mass, edema, infarction, or midline shift is seen. No extra-axial fluid collection is appreciated. There is minimal generalized volume loss. No other finding. IMPRESSION: Minimal generalized volume loss. Otherwise negative noncontrast head CT.. <Electronically signed by Gurvinder Juan > 05/02/20 [id number]
--- NOTE | 2020-05-02 13:20 | REP ---
INDICATION: trauma. COMPARISON: None. TECHNIQUE: Helical scanning is acquired and overlapping 2 mm high resolution axial images were generated and reviewed at bone and soft tissue window settings. Coronal and sagittal multiplanar re-formations images are generated. FINDINGS: There is no evidence of cervical spine element fracture. No skull base fracture is seen. Cervical vertebral body heights are preserved. Alignment is normal. Facet joints are normally aligned bilaterally at each cervical level on multiplanar re-formations images. There is no evidence of intraspinal or paraspinal hematoma. No extra vertebral abnormality is seen. There is fairly advanced degenerative spondylosis with degenerative disc disease most pronounced at the C5-6 C6-7 and C7-T1 levels. There is mild to moderate osteoarthritic facet hypertrophy bilaterally. On the right this is most pronounced at C3-4 and C5-6 and on the left at C4-5. No fracture or malalignment is seen. IMPRESSION: Degenerative spondylosis changes. No traumatic abnormality noted. Some straightening.. <Electronically signed by Gurvinder Juan > 05/02/20 [id number]
[2020-05-02 13:49] LABS: CALCIUM LEVEL 8.9 MG/DL (8.8-10.2); CK-MB VALUE MASS 13.2 NG/ML (<3.6); CREATININE FOR GFR 2.98 MG/DL (0.70-1.30); FREE T4 1.45 NG/DL (0.76-1.46); GLOMERULAR FILTRATION RATE 22.5 (>49); MB/CK RELATIVE INDEX 0.21 (< OR =4); THYROID STIMULATING HORMONE 1.28 uIU/ML (0.358-3.740); TROPONIN I 0.03 NG/ML (< 0.10)
--- NOTE | 2020-05-02 13:56 | REP ---
INDICATION: R leg pain r/o DVT. COMPARISON: None. TECHNIQUE: Right lower extremity duplex venous sonography. FINDINGS: The deep veins are anechoic and fully compressible from the groin to the popliteal fossa in the right lower extremity. Color flow imaging is homogeneous. Spectral Doppler interrogation demonstrates intact respiratory variation in flow and normal manual augmentation of flow. There is no evidence of deep vein thrombosis. IMPRESSION: Negative right lower extremity duplex venous ultrasound. No evidence of deep vein thrombosis. <Electronically signed by Gurvinder Juan > 05/02/20 [id number]
--- NOTE | 2020-05-02 14:22 | REP ---
INDICATION: trauma. COMPARISON: Abdomen and pelvis CT dated 01/23/2020. TECHNIQUE: AP view of the pelvis and AP and frog-leg views of the right hip FINDINGS: No pelvic fractures are identified on the AP view of the pelvis. There may be partial fusion of the sacroiliac joints bilaterally. There is no fracture or dislocation on the AP and frog-leg views of the right hip. Mineralization is normal. IMPRESSION: No pelvic or hip fractures. Question partial fusion of the sacroiliac joints. <Electronically signed by Weston Jorge > 05/02/20 [id number]
--- NOTE | 2020-05-02 14:25 | REP ---
INDICATION: CVA. COMPARISON: PA and lateral chest dated 07/21/2018. TECHNIQUE: Two supine AP views of the chest. FINDINGS: Cardiac size is magnified by positioning. The lung wheat are clear. The samuel, mediastinum, and skeletal structures are unremarkable. IMPRESSION: There are no acute cardiopulmonary findings. <Electronically signed by Weston Jorge > 05/02/20 [id number]
[2020-05-02] MEDS ORDERED: NS 1,000 ML IV SCH (14:27)
[2020-05-02] MEDS ORDERED: OMEG10002 PO (14:39)
[2020-05-02] MEDS ORDERED: WARF-23 PO ×2 (14:39)
[2020-05-02] MEDS ORDERED: ATOR80TA59 PO (14:39)
[2020-05-02] MEDS ORDERED: POTA20TA6 PO ×2 (14:39)
[2020-05-02] MEDS ORDERED: ASPI-161 PO (14:39)
[2020-05-02] MEDS ORDERED: MAGN500T12 PO (14:39)
[2020-05-02] MEDS ORDERED: VITMTA PO (14:39)
[2020-05-02] MEDS ORDERED: AMIL5TAB4 PO (14:39)
--- NOTE | 2020-05-02 16:08 | REPVR ---
PROCEDURE INFORMATION: Exam: MR Head Without Contrast Exam date and time: 05/02/2020 3:24 PM Age: 69 years old Clinical indication: Weakness, extremity; Right; Additional info: CVA TECHNIQUE: Imaging protocol: MR of the head without contrast. COMPARISON: CT Head without contrast 05/02/2020 12:42 PM FINDINGS: Brain: No acute infarct identified on the diffusion-weighted imaging. No parenchymal hemorrhage. The brain demonstrates mild generalized volume loss. No significant white matter disease for the patient's age. Cerebral ventricles: The ventricles are mildly enlarged in keeping with volume loss. Bones/joints: Unremarkable. Paranasal sinuses: Small retention cyst or polyp in the left maxillary sinus. Trace ethmoid mucosal thickening. Mastoid air cells: Trace right mastoid effusion. Orbits: Thinning of the lenses of the globes consistent with prior lens surgery. Soft tissues: Unremarkable. IMPRESSION: No evidence of acute infarct. Electronically signed by: Joan Coker On 05/02/2020 16:08:21 PM
--- NOTE | 2020-05-02 16:15 | REPVR ---
PROCEDURE INFORMATION: Exam: MR Angiogram Head Without Contrast, Arteries Exam date and time: 05/02/2020 3:24 PM Age: 69 years old Clinical indication: Weakness; Additional info: CVA TECHNIQUE: Imaging protocol: MR angiogram head without contrast. Exam focused on the arteries. COMPARISON: CT Head without contrast 05/02/2020 12:42 PM FINDINGS: ANTERIOR CIRCULATION: Right internal carotid artery: Intracranial segment is patent with no significant stenosis. No aneurysm. Right middle cerebral artery: No occlusion or significant stenosis. No aneurysm. Right anterior cerebral artery: No occlusion or significant stenosis. No aneurysm. Left internal carotid artery: Intracranial segment is patent with no significant stenosis. No aneurysm. Left middle cerebral artery: No occlusion or significant stenosis. No aneurysm. Left anterior cerebral artery: No occlusion or significant stenosis. No aneurysm. POSTERIOR CIRCULATION: Right vertebral artery: No occlusion or significant stenosis. No aneurysm. Left vertebral artery: No occlusion or significant stenosis. No aneurysm. Basilar artery: No occlusion or significant stenosis. No aneurysm. Right posterior cerebral artery: Dominant. No occlusion or significant stenosis. No aneurysm. Left posterior cerebral artery: Not visualized. IMPRESSION: Absence of flow related enhancement for the left vertebral artery may reflect occlusion or developmental hypoplasia. The anterior circulation is patent. Electronically signed by: Joan Coker On 05/02/2020 16:14:49 PM
--- NOTE | 2020-05-02 18:11 | HPEPDOC ---
[facility] Medical History & Physical Date of Admission May 02, 2020 Date of Service: May 02, 2020 History and Physical CHIEF COMPLAINT: Right leg weakness HISTORY OF PRESENT ILLNESS: This is a 69-year-old male HTN, CAD (stent 10/2019), IDDM, CKD4, CHFpEF, DVT/PE on Coumadin who presents to the ED for RLE weakness with falls at home. Patient woke up at midnight and felt weaker tells me to go for hours to get out of bed and when he managed to sit on the side of the bed and started to get up immediately fell down and felt as if his right leg gave in and fell and hit his head he didn't lose consciousness his daughter who lives nearby came by and helped him back onto the bed. He was down for 1 hour. He then went back to sleep for about 4 hours and woke up again to use the washroom a similar episode happened or took him a few hours to get out of the bed again and once again when he started to stand up his right leg gave out and he fell again but this time he did not hit his head. At this time his daughter called EMT to bring him to the hospital. He endorses that he has baseline weakness in his right lower extremity as well as bilateral peripheral neuropathy in his hands and feet however he's always been able to ambulate despite his weight using only a cane around the house and has never experienced this degree of right lower extremity weakness before. He also believes that his right upper extremity is a little weaker than usual but he can't be sure. He tells me he has not had any prior events such as this in the past. He denies any other weakness elsewhere and no trouble with swallowing and no headaches fevers or chills no chest pain no shortness of breath. Apart from the right lower extremity weakness and perhaps subtle right upper extremity weakness he feels well otherwise. He denies any upper or lower back pain. In the ED CT head was obtained was negative. MRI and MRA brain were also obtained and did not suggest an acute stroke. I discussed this case with Dr. Hills neurologist chief operations officer today and he suggested that this is likely a different etiology and stroke given the negative MRI. Perhaps the patient has an underlying spinal pathology and we will proceed to obtain MRI without contrast of his spine. [place] Maria syndrome does not present in this way with unilateral weakness. Of note patient did endorse a history of diarrhea over the past few weeks but it has remained unchanged and was advised by GI to avoid dairy products. Upon presentation the patient had very elevated blood sugars and perhaps of the MRI is unrevealing the patient might have had diabetic amyotrophy due to his blood sugars per my conversation with Dr. Hills. Patient will be admitted to the medical unit with telemetry monitoring for further investigations and management PAST MEDICAL HISTORY: CKD stage IV with history of IgA nephropathy follows with Dr. Szymanski exchange clerk Hypertension Hyperlipidemia Peripheral neuropathy Grade 1 diastolic heart failure with normal systolic function Coronary artery disease with stenting in October 2019 Obstructive sleep apnea on CPAP at home GERD History of DVT on Coumadin History of PE on Coumadin Insulin-dependent diabetes mellitus PAST SURGICAL HISTORY: Heart cath October 2019 with 1 stent placement Right eye cataract surgery 2016 Cardiac cath at [facility] in 2014 SOCIAL HISTORY: Endorses about 1 beer per week but no other alcohol use Denies tobacco use currently quit smoking over 10 years ago Denies illicit drug use Uses a cane to ambulate at home FAMILY HISTORY: Father CAD Mother CAD and diabetes Sister CAD 7 brothers patient unsure of their medical problems ALLERGIES: Please see below. REVIEW OF SYSTEMS: 10 point review of systems complete all negative otherwise stated in HPI HOME MEDICATIONS: Please see below. PHYSICAL EXAMINATION: Constitutional: Awake and alert, in no apparent distress ENT: Sclera are clear. Mucosa is moist. Respiratory: Lungs CTA bilaterally. No respiratory distress. No use of accessory muscles. Cardiovascular: RRR S1 and S2 are normal Gastrointestinal: Abdomen is soft, obese, non distended, non tender, BS present. Musculoskeletal: No Lower extremity edema Skin: Warm, dry. Some venous stasis changes on lower extremities without overlying signs of infection Neurologic exam: mental status: The patient is awake, alert, oriented to name, location, and date. Cranial nerves: Pupils are equal, round, and reactive to light. Extraocular muscles intact. Visual wheat full bilaterally. Smile is symmetrical. Tongue is midline. Intact sensation on both sides of face. Motor: At least 4+/5 in both upper and lower Left extremities without any drifting. Right lower extremity 3/5 strength. Right upper extremity 4/5 strength including deltoid and hand heel seater. Sensory: Decreased hand and feet sensation bilaterally Coordination: Skqzin-uy-bhrb grossly intact both hands LABORATORY DATA: See below. IMAGING: Duplex lower extremities, right. Impressions: Negative right lower extremity duplex venous ultrasound. No evidence of deep vein thrombosis. Hip,AP,LAT to include Pelvis RIGHT: IMPRESSION: No pelvic or hip fractures. Question partial fusion of the sacroiliac joints. CT Head without contrast 05/02/20 1228 IMPRESSION: Minimal generalized volume loss. Otherwise negative noncontrast head CT. CXR: There are no acute cardiopulmonary findings. CT Spine,cervical w/o contrast 05/02/20 1228: MICROBIOLOGY: Please see below. IMPRESSION: Degenerative spondylosis changes. No traumatic abnormality noted. Some straightening Exam: MR Head Without Contrast Exam date and time: 05/02/2020 3:24 PM IMPRESSION: No evidence of acute infarct. Exam: MR Angiogram Head Without Contrast, Arteries Exam date and time: 05/02/2020 3:24 PM IMPRESSION: Absence of flow related enhancement for the left vertebral artery may reflect occlusion or developmental hypoplasia. The anterior circulation is patent. ASSESSMENT/PLAN 69-year-old male HTN, CAD (stent 10/2019), IDDM, CKD4, CHFpEF, DVT/PE on Coumadin who presents to the ED for RLE weakness with falls at home. MRI not showing acute stroke. Patient will be admitted to the medical unit with telemetry monitoring for further investigations and management Acute # RLE/RUE weakness: RLE more profound and results in fall 2x at home. MRI negative for stroke. I discussed this case with Dr. Hills neurologist chief operations officer today and he suggested that this is likely a different etiology and stroke given the negative MRI. Perhaps the patient has an underlying spinal pathology and we will proceed to obtain MRI without contrast of his spine. [place] Maria syndrome does not present in this way with unilateral weakness. 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 Will need to work with PT/OT and likely will require rehabilitation prior to going home. Active # MENDEZ on CKD stage IV with history of IgA nephropathy follows with Dr. Szymanski exchange clerk: Cr up to ~3 from baseline of 2. Rhabdo likely contributing. IVFs, if not improving tomorrow with fluids will consult nephrology. # Rhabdomyolysis: CPK 6330 on admission. 2/2 two falls at home with prolonged downtime. IV fluids. Trend CPK. # Leukocytosis: 19.1 on admission. Could be reactive. Afebrile. I don't suspect an infection at this time but will obtain BCx, and UA. Fu procalcitonin. Hold ABx for now. # Poorly controlled IDDM: Uses Humulin 100 units twice a day. Given his weight and good follow-up with primary care I will go ahead and resume this high dose and monitor closely for hypoglycemia ISS. Frequent Accu-Cheks. Hypoglycemic precautions. Chronic # Hyponatremia: correct for hyperglycemia of 473 correct Na is 130-> 136 which is normal. # CHFpEF: Compensated. Resume home meds. # Coronary artery disease with stenting in October 2019: Dual antiplatelet therapy aspirin and Plavix and statin. # MENDEL: On CPAP at home. Can bring in any use home CPAP machine. # Hx DVT/PE: On Coumadin. Resume home dose 5 mg week long except Wednesday 2.5 mg. INR therapeutic goal 2-3. # History of persistent hypokalemia: We'll start with 40 Meq K by mouth daily a nd titrate as needed # Gout: Allopurinol # Hypertension: Continue home meds. Monitor and titrate # Peripheral neuropathy: gabapentin # Hyperlipidemia: Resume home statin. Lipid panel. # GERD: Continue home omeprazole dose. # DVT prophylaxis: On warfarin A Yousef Hospitalist Vital Signs Vital Signs Date Time Temp Pulse Resp B/P (MAP) Pulse Ox O2 Delivery O2 Flow Rate FiO2 05/02/20 16:17 97.7 05/02/20 16:15 85 24 94 Room Air 05/02/20 16:14 133/59 (83) Laboratory Data Labs 24H Laboratory Tests 2 05/02/20 12:42: Immature Granulocyte % (Auto) 0.7, Neutrophils (%) (Auto) 91.0H, Lymphocytes (%) (Auto) 3.4L, Monocytes (%) (Auto) 4.6, Eosinophils (%) (Auto) 0.1, Basophils (%) (Auto) 0.2, Neutrophils # (Auto) 17.4H, Lymphocytes # (Auto) 0.6L, Monocytes # (Auto) 0.9H, Eosinophils # (Auto) 0.0, Basophils # (Auto) 0.0, Nucleated Red Blood Cells % (auto) 0.0, Prothrombin Time 25.0H, Prothromb Time International Ratio 2.21, Activated Partial Thromboplast Time 48.6H, Anion Gap 16, Glomerular Filtration Rate 22.5L, Calcium Level 8.9, Total Creatine Kinase 6330H, Creatine Kinase MB 13.2H, Creatine Kinase MB Relative Index 0.21, Troponin I 0.03, Thyroid Stimulating Hormone (TSH) 1.280, Free Thyroxine 1.45 05/02/20 14:47: Bedside Glucose (Misc Panel) 356H CBC/BMP Laboratory Tests 05/02/20 12:42 Microbiology Microbiology 05/02/20 Respiratory Virus Panel (PCR) ([facility]) - Final, Complete Home Medications Scheduled Allopurinol (Zyloprim) 300 Mg Tablet, 300 MG PO DAILY Amiloride HCl (Amiloride HCl) 5 Mg Tab, 10 MG PO QAM Amiloride HCl (Amiloride HCl) 5 Mg Tablet, 5 MG PO QHS Aspirin (Aspirin EC) 81 Mg Tablet.dr, 81 MG PO DAILY Atorvastatin Calcium (Atorvastatin Calcium) 80 Mg Tablet, 80 MG PO DAILY Bumetanide (Bumetanide) 1 Mg Tab, 3 MG PO BID Calcium Carbonate/Vitamin D3 (Calcium 600-Vit D3 400 Tablet) 1 Tab Tab, 1 TAB PO DAILY Clopidogrel Bisulfate (Clopidogrel) 75 Mg Tablet, 75 MG PO DAILY Dulaglutide (Trulicity) 1.5 Mg/0.5 Ml Inj, 1.5 MG SC 1XWK MANOJ Gabapentin (Gabapentin) 300 Mg Capsule, 300 MG PO TID Insulin Human Lispro (Humalog) 1 Units/0.01 Ml Inj, 1 DOSE SC ACHS PER SLIDING SCALE - HAS RX FOR U-200 BUT ISN'T SURE WHICH ONE HE IS SUPPOSED TO BE TAKING. Insulin Human Regular (Humulin R U-500 Thanh) 500 Unit/1 Ml Insuln.pen, 100 UNITS SC BID Isosorbide Mononitrate (Isosorbide Mononitrate ER) 60 Mg Tab.er.24h, 60 MG PO DAILY Magnesium Oxide (Magnesium Oxide) 500 Mg Tablet, 1,000 MG PO BID Metolazone (Metolazone) 2.5 Mg Tab, 2.5 MG PO 3XW MON, WED, FRI Metoprolol Tartrate (Metoprolol Tartrate) 25 Mg Tablet, 25 MG PO BID Montelukast Sodium (Montelukast Sodium) 10 Mg Tab, 10 MG PO QHS Multivitamins (Thera M Plus Tablet) 1 Each Tablet, 1 TAB PO DAILY Buffalo-3/Dha/Epa/Fish Oil (Fish Oil 1,000 mg Softgel) 1 Each Capsule, 2,000 MG PO DAILY Omeprazole (Omeprazole) 40 Mg Cap, 40 MG PO BID Potassium Chloride (Klor-Con M20) 20 Meq Tabcr, 60 MEQ PO BID Potassium Chloride (Potassium Chloride) 20 Meq Tab.er.prt, 40 MEQ PO 2XW @NOON ON WED, WED, WED Potassium Chloride (Potassium Chloride) 20 Meq Tab.er.prt, 20 MEQ PO 4XWK @NOON ON WED, , , SAT Warfarin Sodium (Warfarin Sodium) 5 Mg Tablet, 5 MG PO 6XWK SUN, WED, , WED, , SAT Warfarin Sodium (Warfarin Sodium) 5 Mg Tablet, 2.5 MG PO 1XWK FRI Scheduled PRN Docusate Sodium (Dok) 100 Mg Tab, 100 MG PO BID PRN for CONSTIPATION Nitroglycerin (Nitroglycerin) 0.4 Mg Sub, 0.4 MG SL NITRO PRN for CHEST PAIN Allergies Coded Allergies: DANIELA Inhibitors (Verified Allergy, Unknown, 05/02/20) rash spironolactone (Verified Adverse Reaction, Unknown, 05/02/20) gynecomastia A-FIB/CHADSVASC A-FIB History Current/History of A-Fib/PAF?: No ADAM MCCULLOUGH MD May 02, 2020 18:11
[2020-05-02] MEDS ORDERED: GLUCOSE 4GM CHEW TABLET PO PRN (18:30)
[2020-05-02] MEDS ORDERED: GLUCAGON INJ 1MG VIAL SC PRN (18:30)
[2020-05-02] MEDS ORDERED: DEXTROSE 50% 50 ML SYRINGE IV PRN (18:30)
[2020-05-02] MEDS: NS 1,000 ML IV SCH (18:41)
[2020-05-02] MEDS ORDERED: HUMULIN R U-500 KWIKPEN 500UNITS/ML 3ML SYRINGE (J1815 PER 5UNITS) SC SCH (21:00)
--- NOTE | 2020-05-02 22:29 | REPVR ---
PROCEDURE INFORMATION: Exam: MR Cervical Spine Without Contrast Exam date and time: 05/02/2020 5:52 PM Age: 69 years old Clinical indication: Weakness; Additional info: Without contrast. No stroke, acute rue/rll weakness. Perneur TECHNIQUE: Imaging protocol: Multiplanar magnetic resonance images of the cervical spine without contrast. COMPARISON: MRI-Spine,Cervical without con 04/07/2019 11:10 AM FINDINGS: Vertebrae: Grade 1 anterolisthesis at C3-C4 and C4-C5. Mild endplate degenerative changes. No fracture or bone lesions Spinal cord: Normal signal. No cord compression. C2-C3: No significant disc disease. No significant spinal stenosis. C3-C4: Disc degeneration with small posterior disc bulge. Mild spinal stenosis without cord compression. Mild left foraminal stenosis. C4-C5: Disc degeneration with small posterior disc bulge. Borderline central spinal stenosis. No cord compression. Mild right foraminal stenosis. C5-C6: Disc degeneration with small posterior disc bulge. There is an 8 x 4 mm left parasagittal disc protrusion, possibly compressing the left C6 nerve root. Moderate -severe foraminal stenosis, worse on the left. Mild spinal stenosis without cord compression. C6-C7: Disc degeneration with small posterior disc bulge. No spinal stenosis. No significant foraminal stenosis. C7-T1: Disc degeneration with disc space narrowing and broad based posterior disc bulge. Moderate bilateral foraminal stenosis. No spinal stenosis. Vertebral arteries: Expected flow voids in the vertebral arteries. Soft tissues: Unremarkable. IMPRESSION: 1. Multilevel degenerative spondylosis as above. Mild spinal stenosis at multiple levels without cord compression. 2. Left C5-C6 parasagittal disc protrusion, possibly compressing the left C6 nerve root. 3. Multilevel foraminal stenosis. Electronically signed by: Augustin Richter On 05/02/2020 22:28:46 PM
--- NOTE | 2020-05-02 22:35 | REPVR ---
PROCEDURE INFORMATION: Exam: MR Thoracic Spine Without Contrast Exam date and time: 05/02/2020 5:52 PM Age: 69 years old Clinical indication: Weakness; Additional info: Without contrast. No stroke, acute rue/rll weakness. Perneur TECHNIQUE: Imaging protocol: Multiplanar magnetic resonance images of the thoracic spine without contrast. COMPARISON: No relevant prior studies available. FINDINGS: Vertebrae: The exam is degraded by patient motion artifact. Normal vertebral body alignment. Small Schmorl's nodes at multiple levels. No fracture or bone lesions. Spinal cord: Normal signal. No cord compression. No syrinx or mass. Discs/Spinal canal/Neural foramina: Mild endplate and discogenic degenerative changes. Small posterior disc bulges at T2-3 and T3-4. No disc herniation or spinal stenosis. Soft tissues: Unremarkable. IMPRESSION: 1. Motion limited exam. 2. Mild degenerative spondylosis as above. No disc herniation or spinal stenosis. Electronically signed by: Augustin Richter On 05/02/2020 22:34:57 PM
--- NOTE | 2020-05-02 22:42 | IPNPDOC ---
Text Note Date of Service The patient was seen on 05/02/20. NOTE time of service 1035pm I was asked to see if the patient could be downgraded from PCU to [facility]. At the time of my visit he had a HR of 130s to 160s and the monitor showed possible afib. He denied chest pain but reported being short of breath. #Narrow complex tachycardia likely new on set afib -Vagal maneuvers were not successful in slowing down the rate -EKG showed rapid afib Plan: metoprolol 5mg IV / f/u serial trops/ BNP / ECHO / serial trops / the pt is already on warfarin LATE ENTRY 1130 Despite 50mg of PO Metoprolol and 5mg of IV Metoprolol his HR is 120. I will o rder Digoxin 0.125mg IV x 1. VS,Fishbone, I+O VS, Fishbone, I+O Laboratory Tests 05/02/20 12:42 Vital Signs Date Time Temp Pulse Resp B/P (MAP) Pulse Ox O2 Delivery O2 Flow Rate FiO2 05/02/20 18:30 97 24 158/73 (101) 95 Room Air 05/02/20 16:17 97.7 MARTHA SEVILLA MD May 02, 2020 22:42
--- NOTE | 2020-05-02 22:42 | REPVR ---
PROCEDURE INFORMATION: Exam: MR Lumbar Spine Without Contrast. Exam date and time: 05/02/2020 5:52 PM Age: 69 years old Clinical indication: Weakness; Additional info: Without contrast. No stroke, acute rue/rll weakness. Perneur TECHNIQUE: Imaging protocol: Multiplanar magnetic resonance images of the lumbar spine without intravenous contrast. COMPARISON: MRI-Spine, L.S. without con 04/07/2019 11:35 AM FINDINGS: Vertebrae: Normal alignment. Multilevel endplate degenerative changes. There is bone marrow edema in the L2 and L3 vertebrae. Spinal epidural space: No epidural abscess or drainable fluid collections. Spinal cord: Conus medullaris terminates in normal position at T12-L1. Conus medullaris is unremarkable. L1-L2: Disc degeneration with disc space narrowing and broad based posterior disc bulge. No spinal stenosis or disc herniation. Moderate bilateral foraminal stenosis. L2-L3: There is disc degeneration with loss of disc height and broad-based posterior disc bulge. Advanced facet DJD and hypertrophy cause severe central spinal canal stenosis. There is fluid signal in the intervertebral disc space with surrounding vertebral body marrow edema. Moderate bilateral foraminal stenosis. L3-L4: Disc degeneration with disc space narrowing and broad based posterior disc bulge. There is advanced facet DJD and hypertrophy. Moderate central spinal canal stenosis and lateral recess narrowing. Moderate right greater than left foraminal stenosis. L4-L5: Severe disc degeneration with loss of disc height and broad-based posterior disc bulging without significant spinal stenosis. Small annulus tear in the right paracentral disc margin. 7 mm disc protrusion in the left lateral disc margin. Moderate bilateral foraminal stenosis. L5-S1: Disc degeneration with loss of disc height. There is advanced facet DJD and hypertrophy. No disc herniation or spinal stenosis. Soft tissues: Unremarkable. IMPRESSION: 1. Motion limited exam. 2. Advanced degenerative spondylosis as above. Severe central spinal stenosis at L2-L3. Moderate spinal stenosis at L3-L4. 3. Fluid signal in the L2-L3 disc space with associated bone marrow edema. Underlying infection/discitis cannot be excluded. Consider contrast enhanced MRI follow-up. 4. Multilevel foraminal stenosis. 5. Small disc protrusion in the left L4-L5 lateral disc margin and annulus tear in the right disc margin. Electronically signed by: Augustin Richter On 05/02/2020 22:42:18 PM
[2020-05-02] MEDS: GABAPENTIN 300 MG CAP PO SCH (23:15)
[2020-05-02] MEDS: METOPROLOL TART 25 MG TABLET PO SCH (23:15)
[2020-05-02] MEDS: OMEPRAZOLE 20 MG CAP PO SCH (23:15)
[2020-05-02] MEDS: MONTELUKAST 10 MG TAB PO SCH (23:15)
[2020-05-02] MEDS: METOPROLOL 5 MG/5 ML VIAL IV SCH ×4 (23:16→23:31)
[2020-05-02] MEDS ORDERED: DIGOXIN INJ 0.5 MG/2 ML AMP (J1160) IV ONE (23:45)
[2020-05-03] VITALS (16 sets, daily range): BP systolic 120–137; BP diastolic 57–69; O2SAT 90–98
[2020-05-03 00:50] LABS: TROPONIN I 0.04 NG/ML (< 0.10)
[2020-05-03] MEDS: WARFARIN SOD 5MG TAB PO SCH (02:52)
[2020-05-03] MEDS: HumaLOG INSULIN (NovoLOG) PER UNIT SC SCH ×5 (02:54→21:00)
[2020-05-03] MEDS: NS 1,000 ML IV SCH ×3 (02:55→22:20)
[2020-05-03] MEDS: CLOPIDOGREL 75 MG TAB PO SCH ×2 (03:00→10:20)
[2020-05-03 05:10] LABS: HEMATOCRIT 44.5 % (42.0-52.0); HEMOGLOBIN 15.2 g/dl (13.5-17.5); MEAN CORPUSCULAR HEMOGLOBIN 32.1 pg (27.0-33.0); MEAN CORPUSCULAR HGB CONC 34.2 g/dl (32.0-36.5); MEAN CORPUSCULAR VOLUME 94.1 fl (80.0-96.0); PLATELET COUNT, AUTOMATED 133 10^3/uL (150-450); RED BLOOD COUNT 4.73 10^6/uL (4.30-6.10); WHITE BLOOD COUNT 10.9 10^3/uL (4.0-10.0)
[2020-05-03 05:22] LABS: INR 1.67; PROTHROMBIN TIME 20.1 SECONDS (12.5-14.3)
[2020-05-03] MEDS: aMILoride 5 MG TAB PO SCH ×3 (05:37→21:15)
[2020-05-03 05:55] LABS: CALCIUM LEVEL 7.9 MG/DL (8.8-10.2); CHOLESTEROL RISK RATIO 3.275 (<5); CREATININE FOR GFR 2.28 MG/DL (0.70-1.30); GLOMERULAR FILTRATION RATE 30.7 (>49); POTASSIUM SERUM 3.9 MEQ/L (3.5-5.1)
[2020-05-03] MEDS: ACETAMINOPHEN TAB 650MG DOSE (2X325MG) PO PRN ×2 (06:56→21:27)
--- NOTE | 2020-05-03 07:03 | ECGEPIP ---
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
[2020-05-03] MEDS ORDERED: metOLazone 2.5 MG TAB PO SCH (08:00)
[2020-05-03] MEDS ORDERED: VANCOMYCIN HCL IV ONE (08:00)
[2020-05-03] MEDS ORDERED: VANCOMYCIN HCL 1,000 MG, VIAL MATE ADAPTER 1 EACH in D5W 250 ML IV SCH (08:00)
[2020-05-03] MEDS ORDERED: FLUID PLACE HOLDER IV ONE (08:00)
--- NOTE | 2020-05-03 08:00 | IPNPDOC ---
Text Note Date of Service The patient was seen on 05/03/20. NOTE Subjective: Patient seen and examined this morning at bedside. Tells me he feels about the same as yesterday evening when I admitted him. Tells me his right lower extremity weakness is about the same he did try to walk with physical therapy this morning and managed get to the chair by his way back leg gave out again. There was no acute overnight events. Patient denies any chest pain but had a period of some dyspnea which resolved. Objective: Constitutional: Awake and alert, in no apparent distress ENT: Sclera are clear. Mucosa is moist. Respiratory: Lungs CTA bilaterally. No respiratory distress. No use of accessory muscles. on 4L o2 by NC saturating 98%. Cardiovascular: RRR S1 and S2 are normal Gastrointestinal: Abdomen is soft, obese, non distended, non tender, BS present. Musculoskeletal: No Lower extremity edema Skin: Warm, dry. Some venous stasis changes on lower extremities without overlying signs of infection Neurologic exam: mental status: The patient is awake, alert, oriented to name, location, and date. Cranial nerves: Pupils are equal, round, and reactive to light. Extraocular muscles intact. Visual wheat full bilaterally. Smile is symmetrical. Tongue is midline. Intact sensation on both sides of face. Motor: At least 4+/5 in both upper and lower Left extremities without any drifting. Right lower extremity 3/5 strength. Right upper extremity 4/5 strength including deltoid and hand school nurse exam unchanged from admission Sensory: Decreased hand and feet sensation bilaterally Coordination: [id number]-rh-czpd grossly intact both hands Assessment/plan: 69-year-old male HTN, CAD (stent 10/2019), IDDM, CKD4, CHFpEF, DVT/PE on Coumadin who presents to the ED for RLE weakness with falls at home. MRI not showing acute stroke. Patient will be admitted to the medical unit with telemetry monitoring for further investigations and management Acute # RLE/RUE weakness: RLE more profound and results in fall 2x at home. MRI negative for stroke. I discussed this case with Dr. Hills neurologist press operator carbon products today and he suggested that this is likely a different etiology and stroke given the negative MRI. MRI without contrast of his spine showing severe lumbar spinal stenosis. Dr St orthopedic surgeon was consulted to evaluate the patient, requested repeat MRI of lumbar spine due to motion artifact. [place] Maria syndrome does not present in this way with unilateral weakness. 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 Will need to work with PT/OT and likely will require rehabilitation. # Leukocytosis: 19.1 on admission. Could be reactive, down to 10.1 following day. Afebrile. Fu BCx. UA ok. procalcitonin elevated. Paulino start on Cefepime and vacomycin for broad coverage which includes treatment for discitis which hasn't been rules out yet. # MENDEZ on CKD stage IV with history of IgA nephropathy follows with Dr. Szymanski health plan specialist: Cr up to ~3 on admission from baseline of 2 down trended with IV fluids. Rhabdo likely contributing. # Rhabdomyolysis: CPK 6330 on admission. 2/ two falls at home with prolonged downtime. Down trended with IV fluids. CPK down trended # Poorly controlled IDDM: Uses Humulin 100 units twice a day. Given his weight and good follow-up with primary care I will go ahead and resume this high dose and monitor closely for hypoglycemia ISS. Frequent Accu-Cheks. Hypoglycemic precautions. Chronic # Hyponatremia: correct for hyperglycemia of 473 correct Na is 130-> 136 which is normal. # CHFpEF: Compensated. Resume home meds. # Coronary artery disease with stenting in October 2019: Dual antiplatelet therapy aspirin and Plavix and statin. # MENDEL: On CPAP at home. Can bring in any use home CPAP machine. # Hx DVT/PE: On Coumadin. Resume home dose 5 mg week long except Wednesday 2.5 mg. INR therapeutic goal 2-3. # History of persistent hypokalemia: We'll start with 40 Meq K by mouth daily and titrate as needed # Gout: Allopurinol # Hypertension: Continue home meds. Monitor and titrate # Peripheral neuropathy: gabapentin # Hyperlipidemia: Resume home statin. Lipid panel. # GERD: Continue home omeprazole dose. # DVT prophylaxis: On warfarin A Yousef Hospitalist [place] PHIPPS, I+O VSAlmas, I+O Laboratory Tests 05/02/20 12:42 05/03/20 04:47 Vital Signs Date Time Temp Pulse Resp B/P (MAP) Pulse Ox O2 Delivery O2 Flow Rate FiO2 05/03/20 06:45 100.5 05/03/20 04:00 107 24 121/69 (86) 96 Nasal Cannula 4.0 I&O- Last 24 Hours up to 6 AM 05/03/20 05:59 Intake Total 350 ml Balance 350 ml ADAM MCCULLOUGH MD May 03, 2020 08:00
[2020-05-03] MEDS ORDERED: POTASSIUM CHLORIDE 10 MEQ SR TABLET PO SCH (09:00)
[2020-05-03] MEDS ORDERED: VANCOMYCIN HCL 1,000 MG, VIAL MATE ADAPTER 1 EACH in D5W 250 ML IV ONE ×2 (10:00→11:00)
[2020-05-03] MEDS: CEFEPIME HCL 2 GM in D5W 50 ML IV SCH ×2 (10:06→21:14)
[2020-05-03] MEDS: ASPIRIN 81 MG ENTERIC TAB PO SCH (10:07)
[2020-05-03] MEDS: OMEPRAZOLE 20 MG CAP PO SCH ×2 (10:07→21:15)
[2020-05-03] MEDS: GABAPENTIN 300 MG CAP PO SCH ×3 (10:08→21:14)
[2020-05-03] MEDS: allopurinoL 300 MG TAB PO SCH (10:08)
[2020-05-03] MEDS: ATORVASTATIN 20 MG TAB PO SCH (10:09)
[2020-05-03] MEDS: MULTIVITAMINS/MINERALS THERAP 1 TAB PO SCH (10:19)
[2020-05-03] MEDS: METOPROLOL TART 25 MG TABLET PO SCH ×2 (10:19→21:15)
[2020-05-03] MEDS: DIGOXIN 0.125 MG TAB PO SCH (10:20)
[2020-05-03] MEDS: ISOSORBIDE MON. (IMDUR) 60 MG XR TAB PO SCH (10:20)
[2020-05-03] MEDS: PEN NEEDLE (USE WITH HUMULIN U-500 INSULIN PEN) XX SCH ×2 (11:22→18:14)
[2020-05-03] MEDS: BUMETANIDE 1 MG TAB PO SCH ×2 (11:23→17:59)
[2020-05-03] MEDS: HUMULIN R U-500 KWIKPEN 500UNITS/ML 3ML SYRINGE (J1815 PER 5UNITS) SC SCH ×2 (11:27→18:14)
[2020-05-03] MEDS ORDERED: LORazepam 1 MG TAB PO ONE (11:30)
[2020-05-03] MEDS ORDERED: aMILoride 5 MG TAB PO ONE (12:15)
--- NOTE | 2020-05-03 14:25 | REP ---
INDICATION: Increasing dyspnea now on oxygen. Hx PE/DVT. COMPARISON: Portable plain film study of the chest dated 05/02/2020 TECHNIQUE/RADIOTRACER AND DOSE: The ventilation phase is performed after having the patient Isis DTPA aerosol with 1.0 mCi of technetium 99 M radiotracer labeling.. This is followed by imaging after intravenous infusion he of MAA with 5.0 mCi of technetium 99 M radiotracer labeling FINDINGS: There are no perfusion defects. There are no ventilation defects. IMPRESSION: Low probability of pulmonary embolus. <Electronically signed by Weston Jorge > 05/03/20 [id number]
[2020-05-03] MEDS ORDERED: WARFARIN SOD 2.5MG TAB PO SCH (17:00)
--- NOTE | 2020-05-03 18:35 | ECGEPIP ---
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
--- NOTE | 2020-05-03 18:40 | ECGEPIP ---
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
--- NOTE | 2020-05-03 18:46 | ECGEPIP ---
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
[2020-05-03] MEDS: MONTELUKAST 10 MG TAB PO SCH (21:14)
--- NOTE | 2020-05-03 21:21 | REPVR ---
PROCEDURE INFORMATION: Exam: MR Lumbar Spine Without Contrast. Exam date and time: 05/03/2020 10:01 AM Age: 69 years old Clinical indication: Low back pain; Patient HX: Repeat exam. Prior last evening; Additional info: No contrast. Rpt - motion artifact. W iv ativan prior to amilcar TECHNIQUE: Imaging protocol: Multiplanar magnetic resonance images of the lumbar spine without intravenous contrast. COMPARISON: MRI-Spine, L.S. without con 05/02/2020 9:50 PM FINDINGS: Vertebrae: Normal vertebral body alignment. Multilevel endplate degenerative changes. Bone marrow edema in the L2 and L3 vertebrae. No compression fracture. Spinal cord: The tip of the conus medullaris is not well visualized due to patient motion. L1-L2: Disc degeneration with disc space narrowing and broad based posterior disc bulge. There is advanced facet DJD and hypertrophy with small joint effusions. mild central spinal stenosis. Moderate bilateral foraminal stenosis. L2-L3: Disc degeneration with fluid in the intervertebral disc space and broad-based posterior disc bulge. There is advanced facet DJD and hypertrophy with small joint effusions. Severe central spinal canal stenosis. L3-L4: Disc degeneration with disc space narrowing and broad based posterior disc bulge. There is advanced facet DJD and hypertrophy. Severe spinal stenosis. Moderate right greater than left foraminal stenosis. L4-L5: Disc degeneration with disc space narrowing and broad based posterior disc bulge. Advanced facet DJD and hypertrophy. Mild central spinal stenosis. 8 mm disc herniation in the left neural foramen. Moderate bilateral foraminal stenosis, worse on the left. L5-S1: Intervertebral disc degeneration. Facet DJD and hypertrophy. No spinal stenosis or disc herniation. No foraminal stenosis. Soft tissues: Paraspinal soft tissue edema centered at the L2-L3 level. No abscess or drainable fluid collection is seen. IMPRESSION: 1. Motion limited exam. 2. Advanced degenerative spondylosis as above with severe spinal stenosis at L2-L3 and L3-L4. 3. Multilevel neural foraminal stenosis. 4. Fluid in the L2-L3 intervertebral disc space with surrounding soft tissue and bone marrow edema. Consider follow-up MRI with contrast if there is concern for discitis. 5. 8 mm left L4-L5 foraminal disc herniation. Electronically signed by: Augustin Richter On 05/03/2020 21:21:37 PM
[2020-05-04] VITALS (15 sets, daily range): BP systolic 119–148; BP diastolic 66–98; O2SAT 90–98
[2020-05-04 06:39] LABS: HEMATOCRIT 44.8 % (42.0-52.0); HEMOGLOBIN 14.7 g/dl (13.5-17.5); MEAN CORPUSCULAR HEMOGLOBIN 31.1 pg (27.0-33.0); MEAN CORPUSCULAR HGB CONC 32.8 g/dl (32.0-36.5); MEAN CORPUSCULAR VOLUME 94.9 fl (80.0-96.0); PLATELET COUNT, AUTOMATED 123 10^3/uL (150-450); RED BLOOD COUNT 4.72 10^6/uL (4.30-6.10); WHITE BLOOD COUNT 7.9 10^3/uL (4.0-10.0)
[2020-05-04 06:54] LABS: INR 1.59; PROTHROMBIN TIME 19.3 SECONDS (12.5-14.3)
[2020-05-04] MEDS: HumaLOG INSULIN (NovoLOG) PER UNIT SC SCH ×4 (07:30→21:10)
[2020-05-04] MEDS: PEN NEEDLE (USE WITH HUMULIN U-500 INSULIN PEN) XX SCH ×2 (07:45→17:07)
[2020-05-04 08:13] LABS: CALCIUM LEVEL 8.6 MG/DL (8.8-10.2); CREATININE FOR GFR 2.47 MG/DL (0.70-1.30); GLOMERULAR FILTRATION RATE 27.9 (>49); POTASSIUM SERUM 2.9 MEQ/L (3.5-5.1)
--- NOTE | 2020-05-04 08:26 | IPNPDOC ---
Text Note Date of Service The patient was seen on 05/04/20. NOTE Subjective: Patient seen and examined this morning at bedside. Tells me his feeling significantly better than yesterday. His right lower extremity weakness seems to have improved 150% compared to yesterday. Nurse tells me there is no acute overnight events. Patient did have a fever last night Tmax 101.9. Objective: Constitutional: Awake and alert, in no apparent distress ENT: Sclera are clear. Mucosa is moist. Respiratory: Lungs CTA bilaterally. No respiratory distress. No use of accessory muscles. on 3L o2 by NC saturating 98%. Cardiovascular: RRR S1 and S2 are normal Gastrointestinal: Abdomen is soft, obese, non distended, non tender, BS present. Musculoskeletal: No Lower extremity edema Skin: Warm, dry. Some venous stasis changes on lower extremities without overlying signs of infection Neurologic exam: mental status: The patient is awake, alert, oriented to name, location, and date. Cranial nerves: Pupils are equal, round, and reactive to light. Extraocular muscles intact. Visual wheat full bilaterally. Smile is symmetrical. Tongue is midline. Intact sensation on both sides of face. Motor: At least 4+/5 in both upper and lower Left extremities without any drifting. Right lower extremity 4/5 strength improved from yesterday. Right upper extremity 4/5 strength. Sensory: Decreased hand and feet sensation bilaterally Coordination: [id number] grossly intact both hands Assessment/plan: 69-year-old male HTN, CAD (stent 10/2019), IDDM, CKD4, CHFpEF, DVT/PE on Coumadin who presents to the ED for RLE weakness with falls at home. MRI not showing acute stroke. Patient will be admitted to the medical unit with telemetry monitoring for further investigations and management Acute # RLE/RUE weakness: RLE more profound and results in fall 2x at home. MRI negative for stroke. I discussed this case with Dr. Hills neurologist controls design engineer today and he suggested that this is likely a different etiology and stroke given the negative MRI. MRI without contrast of his spine showing severe lumbar spinal stenosis. Dr St orthopedic surgeon was consulted to evaluate the patient, repeat MRI of lumbar spine also with motion artifact patient shouldn't get contrast at this time due to his kidney function. 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 Human also have discitis causing some inflammation which is improved after being to medical therapy as his weakness has been improving now. Will need to work with PT/OT and likely will require rehabilitation. # Leukocytosis: 19.1 on admission. down to 10.1 following day now normal. Did spike a fever midnight 05/03/2020. BCx negative to date. UA ok. procalcitonin elevated. On IV Cefepime and vacomycin for broad coverage which includes treatment for discitis which is a possibility # MENDEZ on CKD stage IV with history of IgA nephropathy follows with Dr. Szymanski change management director: Cr up to ~3 on admission from baseline of 2 down trended with IV fluids. Rhabdo likely contributing. # Rhabdomyolysis: CPK 6330 on admission. / two falls at home with prolonged downtime. Down trended with IV fluids. # Poorly controlled IDDM: Tells me he runs between 4-500 home Uses Humulin 100 units twice a day. Given his weight and good follow-up with primary care I will go ahead and resume this high dose and monitor closely for hypoglycemia ISS. Frequent Accu-Cheks. Hypoglycemic precautions. # Lactic acidosis: Initially 2.3->3.3 corrected with IV fluids and antibiotics now 1.5 Chronic # Hyponatremia: correct for hyperglycemia of 473 correct Na is 130-> 136 which is normal. # CHFpEF: Compensated. Resume home meds. # Coronary artery disease with stenting in October 2019: Dual antiplatelet therapy aspirin and Plavix and statin. # MENDEL: On CPAP at home. Can bring in any use home CPAP machine. # Hx DVT/PE: On Coumadin. Resume home dose 5 mg week long except Wednesday 2.5 mg. INR therapeutic goal 2-3. # Hypokalemia: We'll start with 40 Meq K by mouth daily and titrate as needed # Gout: Allopurinol # Hypertension: Continue home meds. Monitor and titrate # Peripheral neuropathy: gabapentin # Hyperlipidemia: Resume home statin. Lipid panel. # GERD: Continue home omeprazole dose. # DVT prophylaxis: On warfarin A Youf Hospitalist VS,Fishbone, I+O VS, Fishbone, I+O Laboratory Tests 05/04/20 06:28 Vital Signs Date Time Temp Pulse Resp B/P (MAP) Pulse Ox O2 Delivery O2 Flow Rate FiO2 05/04/20 04:00 100.1 83 18 145/75 (98) 92 NIPPV (BIPAP/CPAP) 3.0 I&O- Last 24 Hours up to 6 AM 05/04/20 06:00 Intake Total 3690 ml Output Total 3050 ml Balance 640 ml ADAM MCCULLOUGH MD May 04, 2020 08:26
[2020-05-04] MEDS: MULTIVITAMINS/MINERALS THERAP 1 TAB PO SCH (09:19)
[2020-05-04] MEDS: BUMETANIDE 1 MG TAB PO SCH ×3 (09:19→17:18)
[2020-05-04] MEDS: aMILoride 5 MG TAB PO SCH ×2 (09:19→20:06)
[2020-05-04] MEDS: OMEPRAZOLE 20 MG CAP PO SCH ×2 (09:19→20:08)
[2020-05-04] MEDS: POTASSIUM CHLORIDE 10 MEQ SR TABLET PO SCH ×2 (09:20→20:08)
[2020-05-04] MEDS: ATORVASTATIN 20 MG TAB PO SCH (09:20)
[2020-05-04] MEDS: CLOPIDOGREL 75 MG TAB PO SCH (09:21)
[2020-05-04] MEDS: METOPROLOL TART 25 MG TABLET PO SCH ×2 (09:21→20:07)
[2020-05-04] MEDS: GABAPENTIN 300 MG CAP PO SCH ×3 (09:21→20:09)
[2020-05-04] MEDS: allopurinoL 300 MG TAB PO SCH (09:22)
[2020-05-04] MEDS: ASPIRIN 81 MG ENTERIC TAB PO SCH (09:22)
[2020-05-04] MEDS: DIGOXIN 0.125 MG TAB PO SCH (09:22)
[2020-05-04] MEDS: ISOSORBIDE MON. (IMDUR) 60 MG XR TAB PO SCH (09:23)
[2020-05-04] MEDS: HUMULIN R U-500 KWIKPEN 500UNITS/ML 3ML SYRINGE (J1815 PER 5UNITS) SC SCH ×2 (09:24→17:07)
[2020-05-04] MEDS: CEFEPIME HCL 2 GM in D5W 50 ML IV SCH ×2 (09:24→21:10)
[2020-05-04] MEDS: KCL 10MEQ/100ML SWI (KRUN) 10 MEQ in IV 1 EA IV SCH ×8 (09:30→22:35)
[2020-05-04] MEDS ORDERED: POTASSIUM CHLORIDE 10 MEQ SR TABLET PO ONE ×2 (10:00→18:00)
[2020-05-04] MEDS: VANCOMYCIN HCL 750 MG, VIAL MATE ADAPTER 1 EACH in D5W 250 ML IV SCH ×2 (10:06→11:32)
--- NOTE | 2020-05-04 11:01 | CR ---
CONSULTATION DATE: 05/04/2020 HISTORY OF PRESENT ILLNESS: Mr. Galindo is a 69-year-old gentleman who was admitted a couple of days ago. He was feeling ill. He got out of his bed at home, he fell to the ground. He was down for more than an hour. Apparently there were 2 falls involved. He had weakness. He was brought to the ER. He has appreciated weakness in the right lower extremity. Eventually had an MRI scan which was compromised by motion artifact, but reflect spinal stenosis at L2-3 and L3-4, cannot rule out at discitis at L2-3. The patient had an elevated white count, elevated creatinine consistent with acute renal failure, elevated creatinine kinase consistent with rhabdomyolysis. He is being hydrated and rehabilitated. Blood cultures have been negative. He had a repeat MRI to try to avoid some of the motion artifact; it is still somewhat limited, but it was better quality than the first MRI. The spinal stenosis in my opinion at L2-3 and L3-4 is moderate to severe rather and not critically severe in degree and similar to previous spinal stenosis on previous MRIs that have been done in the past. I have seen the gentleman in the past. He has an elevated body mass index. We talked about getting a gastric bypass on 2 occasions and he has been referred twice to [facility]. He indicates that at one point they called him, he called them back, he had a date, but then they did not call him back again and he is not sure what happened there. In any event the patient feels his right lower extremity is getting progressively much stronger and he is happy with that. He is not having much pain. Currently he is on intravenous antibiotics. His white count has trended down to below 10 this morning. Both MRIs were reviewed. MRI of the cervical spine also reviewed. Hospitalist's notes reviewed. PHYSICAL EXAMINATION: He is alert, oriented and cooperative. Mood and affect appropriate. He appears to be his stated vintage. Body mass index is 47. He is able to flex the knee at the hip against resistance, strength about 4+/5; extension of the knee strength about 4/5 at this time on the right side. He has a large abdomen. He is not short of breath. He is on supplemental oxygen currently. IMPRESSION: He does have lumbar spinal stenosis at 2-3 and 3-4. Radiologist indicates cannot rule out discitis. RECOMMENDATIONS: I agree with the radiologist's interpretation of the MRI. Unfortunately with the elevated creatinine MRI with contrast could be risky for this gentleman. Given he is responding vigorously to the intravenous antibiotics certainly a consideration would be to consider empiric antibiotics. Other considerations could be a needle guided aspiration via interventional radiology. I would not recommend an open biopsy; we do not appreciate anything that appears to be an epidural abscess at this time. I did explain that I would recommend non-operative care to the patient who is happy with that plan.
[2020-05-04 17:04] LABS: POTASSIUM SERUM 2.4 MEQ/L (3.5-5.1)
[2020-05-04] MEDS: WARFARIN SOD 5MG TAB PO SCH (17:06)
[2020-05-04 17:59] LABS: MAGNESIUM LEVEL 1.9 MG/DL (1.8-2.4)
[2020-05-04] MEDS: MONTELUKAST 10 MG TAB PO SCH (20:06)
[2020-05-05] VITALS (24 sets, daily range): BP systolic 113–140; BP diastolic 78–88; O2SAT 90–97
[2020-05-05] MEDS ORDERED: POTASSIUM CHLORIDE 10 MEQ SR TABLET PO ONE ×3 (00:15→10:00)
[2020-05-05 04:47] LABS: HEMATOCRIT 46.1 % (42.0-52.0); HEMOGLOBIN 15.6 g/dl (13.5-17.5); MEAN CORPUSCULAR HEMOGLOBIN 31.3 pg (27.0-33.0); MEAN CORPUSCULAR HGB CONC 33.8 g/dl (32.0-36.5); MEAN CORPUSCULAR VOLUME 92.6 fl (80.0-96.0); PLATELET COUNT, AUTOMATED 122 10^3/uL (150-450); RED BLOOD COUNT 4.98 10^6/uL (4.30-6.10); WHITE BLOOD COUNT 7.6 10^3/uL (4.0-10.0)
[2020-05-05 04:56] LABS: INR 1.44; PROTHROMBIN TIME 17.9 SECONDS (12.5-14.3)
[2020-05-05 05:07] LABS: ERYTHROCYTE SEDIMENTATION RATE 58 mm/hr (0-20)
[2020-05-05 05:18] LABS: C REACTIVE PROTEIN QUANTITATIV 12.8 MG/DL (0.00-0.30); CALCIUM LEVEL 8.3 MG/DL (8.8-10.2); CREATININE FOR GFR 2.35 MG/DL (0.70-1.30); GLOMERULAR FILTRATION RATE 29.6 (>49); MAGNESIUM LEVEL 1.9 MG/DL (1.8-2.4); POTASSIUM SERUM 3.1 MEQ/L (3.5-5.1)
[2020-05-05] MEDS: HumaLOG INSULIN (NovoLOG) PER UNIT SC SCH ×4 (07:30→20:05)
[2020-05-05] MEDS: PEN NEEDLE (USE WITH HUMULIN U-500 INSULIN PEN) XX SCH ×2 (07:45→17:22)
--- NOTE | 2020-05-05 07:55 | IPNPDOC ---
Text Note Date of Service The patient was seen on 05/05/20. NOTE Subjective: Patient seen and examined this morning at bedside. Nurse tells me there is no acute overnight events. He was afebrile overnight. He tells me today he feels his right upper extremity as well as his right lower extremity are back to their baseline before the onset of his weakness. He has taken off of oxygen and is doing well on room air. Denies any shortness of breath or chest pain. Objective: Constitutional: Awake and alert, in no apparent distress ENT: Sclera are clear. Mucosa is moist. Respiratory: Lungs CTA bilaterally. No respiratory distress. No use of accessory muscles. on room air now. Cardiovascular: RRR S1 and S2 are normal Gastrointestinal: Abdomen is soft, obese, non distended, non tender, BS present. Musculoskeletal: No Lower extremity edema Skin: Warm, dry. Some venous stasis changes on lower extremities without overlying signs of infection Neurologic exam: mental status: The patient is awake, alert, oriented to name, location, and date. Cranial nerves: Pupils are equal, round, and reactive to light. Extraocular muscles intact. Visual wheat full bilaterally. Smile is symmetrical. Tongue is midline. Intact sensation on both sides of face. Motor: At least 4+/5 in both upper and lower Left extremities without any drift ing. Right lower extremity 4/5 much stronger vs at time of admission, tells me he's back at his baseline. Right upper extremity strength now normal. Sensory: Decreased hand and feet sensation bilaterally Coordination: Txyqby-sk-iflo grossly intact both hands Assessment/plan: 69-year-old male HTN, CAD (stent 10/2019), IDDM, CKD4, CHFpEF, DVT/PE on Coumadin who presents to the ED for RLE weakness with falls at home. MRI not showing acute stroke. Patient will be admitted to the medical unit with telemetry monitoring for further investigations and management Acute # Suspected Discitis: Leukocytosis 19.1 on admission. Resolved with ABx. Did spike a fever midnight 05/03/2020, afebrile since. BCx negative to date. UA ok. procalcitonin elevated. On IV Cefepime and vacomycin for broad coverage which includes treatment for discitis. I discussed this with AUBREY Rodriguez who is consulted. Agrees could be discitis. Will continue current therapy. Will do CT perc drainage L2-3 to try to confirm discitis despite being on Abx. Patient will need 6 weeks total Abx, for which he will receive a PICC line next week. # RLE/RUE weakness: Back to baseline vs on admission after 3 days. MRI ruled out stroke. MRI w/o contrast spine showing severe lumbar spinal stenosis. Dr St orthopedic surgeon was consulted, repeat MRI of lumbar spine also with motion artifact patient shouldn't get contrast at this time due to his kidney function. Will need to work with PT/OT and likely will require rehabilitation. At this time my top differential to explain his right lower extremity weakness is discitis. With Abx therapy patient has been improving strength is improving and his leukocytosis is resolving and has been afebrile. # MENDEZ on CKD stage IV with history of IgA nephropathy follows with Dr. Szymanski cleaner assistant: Cr up to ~3 on admission from baseline of 2 down trended with IV fluids. Rhabdo likely contributing. # Hypokalemia: Continue home dose 40mg BID. On her closely and supplement as needed especially on // when he receives metolazone a potassium waster. I discussed this with nephrology Dr. Becerril and consulted him who recommended starting patient on spirolactone 50mg BID. Patient has a history of gynecomastia from this medication I discussed with the patient who agrees it wasn't too severe and he doesn't mind being back on the medication. # Rhabdomyolysis: Resolving. CPK 6330 on admission. 2/2 two falls at home with prolonged downtime. Down trended with IV fluids. # Poorly controlled IDDM: Tells me he runs between 4-500 home Uses Humulin 100 units twice a day. Given his weight and good follow-up with primary care I will go ahead and resume this high dose and monitor closely for hypoglycemia ISS. Frequent Accu-Cheks. Hypoglycemic precautions. # Lactic acidosis: Initially 2.3->3.3 corrected with IV fluids and antibiotics now 1.5 # Hyponatremia: correct for hyperglycemia of 473 correct Na is 130-> 136 which is normal. # CHFpEF: Compensated. Resume home meds. # Coronary artery disease with stenting in October 2019: Dual antiplatelet therapy aspirin and Plavix and statin. # MENDEL: On CPAP at home. Can bring in any use home CPAP machine. # Hx DVT/PE: On Coumadin. Resume home dose 5 mg week long except Wednesday 2.5 mg. INR therapeutic goal 2-3. # Gout: Allopurinol # Hypertension: Continue home meds. Monitor and titrate # Peripheral neuropathy: gabapentin # Hyperlipidemia: Resume home statin. Lipid panel. # GERD: Continue home omeprazole dose. # DVT prophylaxis: On warfarin A Anic[place] Hospitalist VS,[place], I+O VS, [place], I+O Laboratory Tests 05/04/20 16:22 05/04/20 22:02 05/05/20 04:23 Vital Signs Date Time Temp Pulse Resp B/P (MAP) Pulse Ox O2 Delivery O2 Flow Rate FiO2 05/05/20 06:00 90 BIPAP/CPAP 3.0 05/05/20 04:00 98.6 60 18 113/84 (94) I&O- Last 24 Hours up to 6 AM 05/05/20 06:00 Intake Total 2670 ml Output Total 2400 ml Balance 270 ml ADAM MCCULLOUGH MD May 05, 2020 07:55
[2020-05-05] MEDS ORDERED: SPIRONOLACTONE 50 MG TAB PO SCH (09:00)
[2020-05-05] MEDS: HUMULIN R U-500 KWIKPEN 500UNITS/ML 3ML SYRINGE (J1815 PER 5UNITS) SC SCH ×2 (09:03→17:21)
[2020-05-05] MEDS: CEFEPIME HCL 2 GM in D5W 50 ML IV SCH ×2 (09:04→20:03)
[2020-05-05] MEDS: aMILoride 5 MG TAB PO SCH ×2 (09:05→17:19)
[2020-05-05] MEDS: BUMETANIDE 1 MG TAB PO SCH (09:05)
[2020-05-05] MEDS: ATORVASTATIN 20 MG TAB PO SCH (09:05)
[2020-05-05] MEDS: OMEPRAZOLE 20 MG CAP PO SCH ×2 (09:06→20:05)
[2020-05-05] MEDS: ASPIRIN 81 MG ENTERIC TAB PO SCH (09:06)
[2020-05-05] MEDS: POTASSIUM CHLORIDE 10 MEQ SR TABLET PO SCH ×2 (09:06→20:05)
[2020-05-05] MEDS: allopurinoL 300 MG TAB PO SCH (09:07)
[2020-05-05] MEDS: DIGOXIN 0.125 MG TAB PO SCH (09:07)
[2020-05-05] MEDS: GABAPENTIN 300 MG CAP PO SCH ×3 (09:07→20:06)
[2020-05-05] MEDS: MULTIVITAMINS/MINERALS THERAP 1 TAB PO SCH (09:08)
[2020-05-05] MEDS: ISOSORBIDE MON. (IMDUR) 60 MG XR TAB PO SCH (09:08)
[2020-05-05] MEDS: METOPROLOL TART 25 MG TABLET PO SCH ×2 (09:08→20:04)
[2020-05-05] MEDS: CLOPIDOGREL 75 MG TAB PO SCH (09:08)
--- NOTE | 2020-05-05 09:56 | HPE ---
ADDENDUM TO HISTORY AND PHYSICAL DATE OF ADMISSION: 05/02/2020 ALLERGIES: DANIELA inhibitors, Spironolactone. MEDICATIONS: 1. Metoprolol 25 mg p.o. b.i.d. 2. Montelukast 10 mg p.o. q.h.s. 3. Gabapentin 300 mg p.o. t.i.d. 4. Amiloride 5 mg p.o. q.h.s. 5. Tylenol 650 mg p.o. q. 6 p.r.n. 6. Insulin sliding scale. 7. Humulin R 100 units b.i.d. 8. Metolazone 2.5 mg Wednesday, Wednesday and Wednesday. 9. Digoxin 0.125 mg daily. 10.Cefepime 2 grams IV q. 12 hours. 11.Vancomycin renal dosing. 12.___ 750 mg IV q. 24. 13.Potassium 40 mEq p.o. b.i.d. 14.Warfarin 2.5 mg on Wednesday and 5 mg the rest of the week. 15.Plavix 75 mg p.o. daily.
[2020-05-05] MEDS: VANCOMYCIN HCL 750 MG, VIAL MATE ADAPTER 1 EACH in D5W 250 ML IV SCH ×2 (10:34→11:27)
--- NOTE | 2020-05-05 12:02 | CR ---
CONSULTATION DATE: 05/04/2020 REASON FOR CONSULTATION: Concern for L2-L3 discitis with right leg weakness. HISTORY OF PRESENT ILLNESS: Mr. Galindo is a 69-year-old gentleman with a history of coronary artery disease, DVT and PE on Coumadin, hypertension, who was doing well the day before admission. On the morning of admission, he woke up in the morning. Trying to get out of bed, he had severe back pain and right lower extremity weakness. He fell. He tried to get back to his bed and laid down and rested for a couple hours. When he got up again, he had similar problem and fell again. He had no loss of consciousness, no chest pain. He had no loss of consciousness, no chest pain. He had some shortness of breath. He has a history of chronic kidney disease with diabetes with bilateral neuropathy in the stocking distribution. He also complains of numbness in both hands. He was not a very good historian and thought he has right upper extremity and lower extremity weakness but it seems to me like he only had right lower extremity weakness. He has no fever or chills, no nausea, vomiting or diarrhea. In the emergency room, he had an MRI/MRA of the brain which did not suggest any acute stroke. MRI of the lumbar spine was questionable for discitis. He did not have contrast due to chronic kidney disease. PAST MEDICAL HISTORY: 1. Chronic kidney disease, stage 4 with IgA nephropathy. 2. Hypertension. 3. Hyperlipidemia. 4. Peripheral neuropathy. 5. Type 1 diastolic dysfunction. 6. Coronary artery disease with a stent placed in October of 2019. 7. Obstructive sleep apnea on CPAP at home. 8. Gastroesophageal reflux disease. 9. DVT and PE on Coumadin. 10. Insulin dependent diabetes with diabetic neuropathy and kidney disease. PAST SURGICAL HISTORY: 1. Cardiac cath in October of 2019 with one stent placement. 2. Cataract surgery. SOCIAL HISTORY: He lives alone upstairs where his daughter and son-in-law live. He denies any cigarette smoking or drug use, drinks one beer a week. FAMILY HISTORY: Significant for coronary artery disease. REVIEW OF SYSTEMS: The patient states he has bilateral neuropathy of both feet, both hands but his hands are intermittent. He has chronic back pain, no nausea, vomiting or diarrhea. No fever or chills. He has shortness of breath at baseline but this was worse today. On physical exam, temperature is 101.1, pulse 78, respirations 17, blood pressure 136/69, O2 sat 94% on two liters nasal cannula. LABORATORY DATA: White count is 10.9, hemoglobin 15.2, hematocrit 44.5, platelets 133. Sodium 131, potassium 3.9, chloride 94, bicarb 26, BUN 38, creatinine 2.3, glucose 314, lactic acid 2.3, calcium 7.9, magnesium 2. CPK 5100, cholesterol 95, triglycerides 149. Blood cultures, two sets were drawn on admission and no growth after 24 hours. Respiratory panel negative. Lumbar spine MRI without contrast shows bone marrow edema of L2-L3, no compression fracture, atrophic vertebral disc with surrounding soft tissue, concerning for discitis. 8 mm L4-L5 disc herniation. Exam limited by motion artifacts. CT scan with low probability for PE. Cervical spine MRI shows degenerative disc disease, multilevel with spondylosis, left C5-6 parasagittal disc protrusion with compression possibly of the left exiting root. PHYSICAL EXAMINATION: This is a moderately obese gentleman lying in bed in discomfort from pain of the right leg. Heart: Normal S1, S2, distant, no murmurs, rubs or gallops appreciated. Lungs are clear, no wheezing, rales or rhonchi anteriorly. The patient could not roll over due to pain. Abdomen: Obese, soft, nontender. Back could not be evaluated on exam as he was lying and has a hard time moving. : Normal for age. Extremities: +1 pitting edema bilaterally. The patient had positive straight leg raising on the right side at 30 degrees, on the left side was normal. He has weakness on the right side, more than the left. He was in so much pain that he was not even trying to elevate his leg. He is able to move both his limbs and flex them. Dorsiflexion and plantarflexion were normal. Upper extremity strength was symmetric, bilateral lower extremity light touch with examination in the stocking distribution. IMPRESSION: This is a 69-year-old gentleman with multiple comorbidities who was admitted with low back pain radiating to the right side with weakness. He has evidence of L2-L3 discitis on MRI with no contrast due to his kidney disease. He is currently on IV vancomycin and cefepime which is appropriate for coverage for discitis. PLAN : orthopedic surgery were consulted on epidural infection If blood cultures negative. We will schedule a CT-guided biopsy to try and obtain pathogen causing the infection to be able to de-escalate therapy. MRSA PRC was negative, however, continue vancomycin and cefepime until the result of biopsy. Would sent disctissue for AFB, fungal smear culture as well as aerobic and anaerobic bacteria. This can be scheduled on Wednesday. Most likely, the patient will need a PICC line and prolonged IV antibiotics for 6 weeks MTDD
--- NOTE | 2020-05-05 16:30 | CR ---
CONSULTATION DATE: 05/05/2020 REQUESTING PHYSICIAN: Reginald Moreland MD CONSULTING PHYSICIAN: Awilda Cintron MD REASON FOR CONSULTATION: Management of persistent hypokalemia in this patient with high dose diuretics. CHIEF COMPLAINT: The patient was admitted to the hospital on May 02, 2020 after right leg weakness and fall. HISTORY OF PRESENT ILLNESS: Myriam Galindo is a 69-year-old male with past medical history of hypertension, coronary artery disease and insulin dependent diabetic, chronic kidney disease (CKD) stage III to early stage IV at baseline, Cor pulmonale, multiple other co-morbidities as mentioned below. He follows up with myself in the office. He presented to the hospital on May 02, 2020 with right leg weakness and falls. He was admitted to the hospitalist service. His creatinine on admission was 2.9. He had lactic acidosis. He was given IV antibiotics for possible diskitis. The patient is currently on Bumex, metolazone and amiloride and despite that his potassium level was very low. His potassium was 2.4 yesterday, so nephrology service was called for further help in the management of this patient. I discussed the patient with the hospitalist physician last night and decision was made to keep the patient on amiloride and spironolactone and give him oral potassium. I saw and evaluated the patient today morning at the bedside. He reports that he is feeling slightly better today as compared with yesterday and he was able to provide with history and physical. PAST MEDICAL HISTORY: Past medical history of chronic kidney disease stage IV, history of IgA nephropathy, hypertension, hyperlipidemia, peripheral neuropathy, chronic diastolic congestive heart failure with Cor pulmonale, coronary artery disease, obstructive sleep apnea on CPAP, gastroesophageal reflux disease, history of deep venous thrombosis (DVT) on coumadin, insulin dependent diabetic. PAST SURGICAL HISTORY: Status post cardiac catheterization with stent placement this year. Right eye cataract surgery in 2016 and cardiac catheter at [facility] back in 2014. ALLERGIES: He is allergic to DANIELA INHIBITORS AND SPIRONOLACTONE. Spironolactone causes gynecomastia. FAMILY HISTORY: No significant family history of end-stage renal disease requiring hemodialysis. SOCIAL HISTORY: The patient denies any illicit drug abuse or alcohol abuse and he lives with his daughter. REVIEW OF SYSTEMS: Constitutional: He denies any fevers or chills. Eyes: He denies any blurry vision, double vision. ENT: He denies any dysphagia, odynophagia. Cardiovascular: He reports no edema at this time. Respiratory: He reports mild shortness of breath. Gastrointestinal (GI): He denies any nausea or vomiting. Genitourinary (): He denies any dysuria, hematuria. Musculoskeletal: He reports right leg weakness. Skin: He denies any rashes or ulcers. Hematology/oncology: He denies any easy bleeding or bruising. SPEAR FISHER: He reports recent presentation with right leg weakness. Otherwise, he denies any strokes or seizures. All other review of systems is negative. PHYSICAL EXAMINATION: General: The patient is awake, alert and oriented x3, lying in bed Vital signs: Temperature is 98.6 degrees Fahrenheit, blood pressure 140/78, pulse is 122, respiratory rate of 18, saturating 94% on 3 liters. Head and neck examination: Extraocular muscles are intact. Pupils equally round and reactive to light. Mucus membranes are moist. Neck is supple. There is no jugular venous distention (JVD). Cardiovascular: S1, S2, tachycardia. No edema of the bilateral lower extremities. Respiratory: Mildly decreased breath sounds at the bases. Otherwise, no active rales or rhonchi. Abdomen is soft, obese. Positive bowel sounds. Musculoskeletal: No clubbing or cyanosis. Pulses are 2+. SPEAR FISHER: No focal deficits. Power is 5/5 in all extremities. LABORATORY DATA: Complete blood count (CBC) showed a WBC of 7.6, hemoglobin 15.6, platelets of 122. Basic metabolic panel (BMP) showed sodium 133, potassium 3.1, chloride 95, bicarbonate 29, BUN 36, creatinine is 2.3 it was 2.4 yesterday, calcium 8.3, magnesium 1.9, CPK is 1603. C-reactive protein is 12.8. Microbiology: All the blood cultures are negative so far. IMAGING DATA: VQ scan was negative. CURRENT INPATIENT MEDICATIONS: The patient's medications were all reviewed by myself. He continues to be on IV cefepime. He was getting IV KCl. He is also getting vancomycin 750 mg IV daily. He is on allopurinol 300 mg daily. He was on amiloride 10 mg in the morning and 5 mg in the evening. I have stopped his amiloride dose now and changed it to 10 mg by mouth twice a day. He was on Bumex 3 mg by mouth twice a day. I have held his Bumex now. He is on Plavix 75 mg by mouth daily. Digoxin 0.125 mcg by mouth daily. Gabapentin 300 mg by mouth three times day. Insulin lispro sliding scale. Isosorbide 60 mg by mouth daily. He was on metolazone Wednesday, Wednesday, Wednesday, which I have stopped now. He is on metoprolol 25 mg by mouth twice a day. Montelukast 10 mg q.h.s. Multivitamins. Omeprazole 40 mg by mouth twice a day. Potassium chloride 40 mEq by mouth twice a day. He was given three doses of 40 mEq potassium last night as well. He was on spironolactone 50 mg by mouth twice a day, which I have held now. The patient is on warfarin adjusted according to INR. ASSESSMENT AND PLAN: 1. Chronic kidney disease stage IV. The patient's creatinine is close to his baseline. However, because of elevated lactic acid level, C-reactive protein and possible infection and diskitis, I am going to hold the diuretics at this time. Volume status is optimal. He actually clinically looks dry. 2. Hypokalemia. The patient has whole body potassium depletion secondary to high dose of loop diuretic, use of metolazone. He was given oral potassium yesterday. Potassium level has improved to 3.1. However, I am going to hold the loop diuretic and metolazone at this time until potassium gets better. Continue amiloride. I tried to get eplerenone, but it is not available in the pharmacy. He was started on spironolactone, but he reports history of mastalgia and gynecomastia with spirolactone, so I have stopped it for now. 3. Cor pulmonale with diastolic congestive heart failure. The patient's volume status is optimal as mentioned above. I am going to hold the diuretics for some time. 4. Hypertension. Blood pressure is optimal. Diuretics are on hold. Okay to continue metoprolol and isosorbide. 5. Atrial fibrillation. Heart rate is controlled with metoprolol and digoxin and he is anticoagulated with warfarin. 6. Chronic gout secondary to chronic kidney disease. Continue current dose of allopurinol.
[2020-05-05] MEDS: WARFARIN SOD 5MG TAB PO SCH (17:19)
[2020-05-05] MEDS: MONTELUKAST 10 MG TAB PO SCH (20:04)
[2020-05-06] VITALS: BP_SYST 122; BP_SYST 95; BP_DIAS 61; O2SAT 94
[2020-05-06 04:00] VITALS: BP 133/73
[2020-05-06 05:56] LABS: HEMATOCRIT 44.7 % (42.0-52.0); HEMOGLOBIN 14.9 g/dl (13.5-17.5); MEAN CORPUSCULAR HEMOGLOBIN 31.2 pg (27.0-33.0); MEAN CORPUSCULAR HGB CONC 33.3 g/dl (32.0-36.5); MEAN CORPUSCULAR VOLUME 93.7 fl (80.0-96.0); PLATELET COUNT, AUTOMATED 129 10^3/uL (150-450); RED BLOOD COUNT 4.77 10^6/uL (4.30-6.10); WHITE BLOOD COUNT 7.8 10^3/uL (4.0-10.0)
[2020-05-06 06:12] LABS: INR 1.52; PROTHROMBIN TIME 18.6 SECONDS (12.5-14.3)
[2020-05-06 06:19] LABS: CALCIUM LEVEL 8.7 MG/DL (8.8-10.2); CREATININE FOR GFR 2.43 MG/DL (0.70-1.30); GLOMERULAR FILTRATION RATE 28.5 (>49); POTASSIUM SERUM 3.6 MEQ/L (3.5-5.1)
--- NOTE | 2020-05-06 07:55 | IPNPDOC ---
Text Note Date of Service The patient was seen on 05/06/20. NOTE Subjective: Patient seen and examined this morning at bedside. Nurse tells me there is no acute overnight events. He was afebrile overnight. Feels his RUE RLE back to their baseline before the onset of his weakness. On room air. Denies any shortness of breath or chest pain. Objective: Constitutional: Awake and alert, in no apparent distress ENT: Sclera are clear. Mucosa is moist. Respiratory: Lungs CTA bilaterally. No respiratory distress. No use of accessory muscles. on room air now. Cardiovascular: RRR S1 and S2 are normal Gastrointestinal: Abdomen is soft, obese, non distended, non tender, BS present. Musculoskeletal: No Lower extremity edema Skin: Warm, dry. Some venous stasis changes on lower extremities without overlying signs of infection Neurologic exam: mental status: The patient is awake, alert, oriented to name, location, and date. Cranial nerves: Pupils are equal, round, and reactive to light. Extraocular muscles intact. Visual wheat full bilaterally. Smile is symmetrical. Tongue is midline. Intact sensation on both sides of face. Motor: At least 4+/5 in both upper and lower Left extremities without any drifting. Right lower extremity 4/5 much stronger vs at time of admission, tells me he's back at his baseline. Right upper extremity strength now normal. Sensory: Decreased hand and feet sensation bilaterally Coordination: [id number] grossly intact both hands Assessment/plan: 69-year-old male HTN, CAD (stent 10/2019), IDDM, CKD4, CHFpEF, DVT/PE on Coumadin who presents to the ED for RLE weakness with falls at home. MRI not showing acute stroke. Patient will be admitted to the medical unit with telemetry monitoring for further investigations and management. Patient is suspected to have discitis but we've been unable to confirm this diagnosis. In order to have a CT-guided aspiration by interventional radiology patient needs to be off of Plavix and warfarin for 6 days and severely to be able to get the procedure would be on Wednesday 1 week from today. This will decrease the likelihood of the tachypnea pathogen as he will be on antibiotics and this time. Will need to discuss this with ID. The other option is to get an MRI sacral spine with contrast however given his poor renal function this will likely worsen his kidney function. For now to get them on his Plavix and warfarin and will continue treatment as he seems to be responding very well. Acute # Suspected Discitis: Leukocytosis 19.1 on admission. Resolved with ABx. Did spike a fever midnight 05/03/2020, afebrile since. BCx negative to date. UA ok. procalcitonin elevated. On IV Cefepime and vacomycin for broad coverage which includes treatment for discitis. I discussed this with AUBREY Rodriguez who is consulted. Agrees could be discitis. Will continue current therapy. Ideally CT perc drainage L2-3 to try to confirm discitis despite being on Abx however as above this can't be done until next Wednesday. Patient will need 6 weeks total Abx, for which he will receive a PICC line. # RLE/RUE weakness: Back to baseline vs on admission after 3 days. MRI ruled out stroke. MRI w/o contrast spine showing severe lumbar spinal stenosis. Dr Maciel carrillo rthopedic surgeon was consulted, repeat MRI of lumbar spine also with motion artifact patient shouldn't get contrast at this time due to his kidney function. Will need to work with PT/OT and likely will require rehabilitation. At this time my top differential to explain his right lower extremity weakness is discitis. With Abx therapy patient has been improving strength is improving and his leukocytosis is resolving and has been afebrile. # MENDEZ on CKD stage IV with history of IgA nephropathy follows with Dr. Szymanski office supervisor: Cr up to ~3 on admission from baseline of 2 down trended with IV fluids. Rhabdo likely contributing. # Hypokalemia: Continue home dose 40mg BID. On her closely and supplement as needed especially on // when he receives metolazone a potassium waster. I discussed this with nephrology Dr. Becerril and consulted him who recommended starting patient on spirolactone 50mg BID. Patient has a history of gynecomastia from this medication I discussed with the patient who agrees it wasn't too severe and he doesn't mind being back on the medication. # Rhabdomyolysis: Resolving. CPK 6330 on admission. 2/ two falls at home with prolonged downtime. Down trended with IV fluids. # Poorly controlled IDDM: Tells me he runs between 4-500 home Uses Humulin 100 units twice a day. Given his weight and good follow-up with primary care I will go ahead and resume this high dose and monitor closely for hypoglycemia ISS. Frequent Accu-Cheks. Hypoglycemic precautions. # Lactic acidosis: Initially 2.3->3.3 corrected with IV fluids and antibiotics now 1.5 # Hyponatremia: correct for hyperglycemia of 473 correct Na is 130-> 136 which is normal. # CHFpEF: Compensated. Resume home meds. # Coronary artery disease with stenting in October 2019: Dual antiplatelet therapy aspirin and Plavix and statin. # MENDEL: On CPAP at home. Can bring in any use home CPAP machine. # Hx DVT/PE: On Coumadin. Resume home dose 5 mg week long except Wednesday 2.5 mg. INR therapeutic goal 2-3. # Gout: Allopurinol # Hypertension: Continue home meds. Monitor and titrate # Peripheral neuropathy: gabapentin # Hyperlipidemia: Resume home statin. Lipid panel. # GERD: Continue home omeprazole dose. # DVT prophylaxis: On warfarin A Aniceto Hospitalist [facility], I+O [facility] I+O Laboratory Tests 05/06/20 05:28 Vital Signs Date Time Temp Pulse Resp B/P (MAP) Pulse Ox O2 Delivery O2 Flow Rate FiO2 05/06/20 04:00 96.3 76 19 133/73 (93) 98 Room Air 05/06/20 00:00 3.0 I&O- Last 24 Hours up to 6 AM 05/06/20 05:59 Intake Total 2470 ml Output Total 2550 ml Balance -80 ml ADAM MCCULLOUGH MD May 06, 2020 07:55
[2020-05-06 08:27] VITALS: BP 130/68
[2020-05-06] MEDS: aMILoride 5 MG TAB PO SCH ×2 (09:54→18:37)
[2020-05-06] MEDS: CEFEPIME HCL 2 GM in D5W 50 ML IV SCH (09:54)
[2020-05-06] MEDS: ASPIRIN 81 MG ENTERIC TAB PO SCH (09:54)
[2020-05-06] MEDS: GABAPENTIN 300 MG CAP PO SCH ×3 (09:55→21:19)
[2020-05-06] MEDS: MULTIVITAMINS/MINERALS THERAP 1 TAB PO SCH (09:55)
[2020-05-06] MEDS: CLOPIDOGREL 75 MG TAB PO SCH ×2 (09:55→11:08)
[2020-05-06] MEDS: POTASSIUM CHLORIDE 10 MEQ SR TABLET PO SCH ×2 (09:55→21:19)
[2020-05-06] MEDS: OMEPRAZOLE 20 MG CAP PO SCH ×2 (09:55→21:18)
[2020-05-06] MEDS: ATORVASTATIN 20 MG TAB PO SCH (09:55)
[2020-05-06] MEDS: DIGOXIN 0.125 MG TAB PO SCH (09:56)
[2020-05-06] MEDS: allopurinoL 300 MG TAB PO SCH (09:56)
[2020-05-06] MEDS: METOPROLOL TART 25 MG TABLET PO SCH ×2 (09:56→21:20)
[2020-05-06] MEDS: ISOSORBIDE MON. (IMDUR) 60 MG XR TAB PO SCH (09:56)
[2020-05-06] MEDS: HumaLOG INSULIN (NovoLOG) PER UNIT SC SCH ×4 (09:57→21:18)
[2020-05-06] MEDS: HUMULIN R U-500 KWIKPEN 500UNITS/ML 3ML SYRINGE (J1815 PER 5UNITS) SC SCH ×2 (09:58→18:26)
[2020-05-06] MEDS: PEN NEEDLE (USE WITH HUMULIN U-500 INSULIN PEN) XX SCH ×2 (09:58→18:26)
[2020-05-06] MEDS: VANCOMYCIN HCL 750 MG, VIAL MATE ADAPTER 1 EACH in D5W 250 ML IV SCH ×2 (10:43→12:38)
[2020-05-06 12:00] VITALS: BP 123/76
[2020-05-06 16:00] VITALS: BP 138/76
[2020-05-06] MEDS: WARFARIN SOD 5MG TAB PO SCH (16:58)
--- NOTE | 2020-05-06 18:13 | IPN ---
PROGRESS NOTE DATE: 05/06/2020 SUBJECTIVE: Mr. Galindo seems to be doing much better. His back pain has improved. He states the pain in his right leg has diminished. He feels much stronger. He was seen in continue with Dr. Cintron today regarding his chronic kidney disease. He is at baseline. He has had no recurrent fever or chills. His white count is down to 7.8 from 19.1, hemoglobin 14.9, hematocrit 44.7, platelets 129,000. ESR 58. Sodium 130, potassium 3.6, chloride 93, bicarb 27, BUN 40, creatinine 2.43, glucose 372, calcium 8.7, magnesium 2. CRP 12.8, CPK 591. MRSA screen was negative. Blood cultures two sets were negative. Nasopharyngeal swab respiratory panel was negative. MRI of the lumbar spine was suspicious for L2-L3 discitis. There was concern about giving gadolinium by nephrology and primary team; so an MRI with contrast was not done. V/Q scan was negative for pulmonary embolus (PE). IMPRESSION 1. L2-L3 discitis with right lower extremity radiculopathy improving. Blood cultures were negative. Disc biopsy was not done due to concern of bleeding. The patient is on warfarin, as well as aspirin and patient had recent stenting, so a biopsy was not done. Plan to switch Cefepime to Rocephin for gram-negative coverage that will not include pseudomonas, but my suspicion for pseudomonas is really low. 2. Coronary artery disease status post recent stenting on Plavix, warfarin, and aspirin, which could not be held because of recent procedure with a stent. PLAN :At this point, my feeling is that we will not be able to get a CT-guided biopsy of the disc space and the patient will be treated empirically due to too many confounding factors allowing us to get an MRI with gadolinium and lumbar spine biopsy. Continue with vancomycin and Rocephin. Peripherally inserted central catheter (PICC) line insertion. The patient has agreed and explained the benefits of having a PICC line and the need for six weeks of IV antibiotics. Consult PFS for home IV antibiotics MTDD
[2020-05-06 20:00] VITALS: BP 145/68
[2020-05-06] MEDS: cefTRIAXone SOD 2 GM in D5W MINI-BAG PLUS 50 ML IV SCH (21:18)
[2020-05-06] MEDS: MONTELUKAST 10 MG TAB PO SCH (21:20)
--- NOTE | 2020-05-06 23:24 | IPN ---
NEPHROLOGY PROGRESS NOTE DATE: 05/06/2020 SUBJECTIVE: The patient was seen and examined at the bedside today morning. He is afebrile, hemodynamically stable. He reports his back pain is getting better. His loop diuretics are held. His hypokalemia has improved. He denies any active complaint or lower extremity edema. OBJECTIVE: VITAL SIGNS: Temperature is 97.3 degrees Fahrenheit, blood pressure 145/68, pulse is 88, respiratory rate of 18, saturating 94% on room air. INTAKE AND OUTPUT: Urine output recorded as 2.1 liters yesterday, 1,300 mL so far today since overnight. Weight in the bed scale is 147 kg. PHYSICAL EXAMINATION: GENERAL APPEARANCE: The patient is awake, alert, oriented x3, sitting up in the sofa, morbidly obese. HEAD AND NECK: Extraocular muscles intact. Pupils are equally round and reactive to light. Mucous membranes are moist. Neck is supple. There is mildly elevated jugular venous distention. CARDIOVASCULAR: S1, S2, regular rate. EXTREMITIES: No edema of the bilateral lower extremities. RESPIRATORY: Chest is clear to auscultation bilaterally in the upper and mid lung zones. Decreased breath sounds at the bases. No active rales or rhonchi. ABDOMEN: Soft, obese, positive bowel sounds, no abdominal wall edema. MUSCULOSKELETAL: No clubbing, no cyanosis. No edema of the bilateral lower extremities. CRAB BUTCHER: No focal deficits. Power is 5/5 in all extremities. LAB REVIEW: CBC showed awake and alert WBC of 7.8, hemoglobin 14.9, platelets of 129. INR is 1.52. BMP showed sodium of 130, potassium 3.6, chloride 93, bicarbonate 27, BUN is 40, creatinine is 2.4. Calcium 8.7, magnesium is 2. Vancomycin level is 15.3. CURRENT INPATIENT MEDICATIONS: The patient's medications were all reviewed by myself. He is currently on IV Ceftriaxone and Vancomycin. His Amiloride dose was increased to 10 mg p.o. twice daily yesterday. He continues to be on potassium 40 mEq p.o. twice daily. Bumex is on hold and it will be started tomorrow morning. No other significant change in the medications today. ASSESSMENT AND PLAN: 1. Hypokalemia it has resolved after stopping the Metolazone, increasing the dose of Amiloride and holding the loop diuretics for a day. Continue current dose of potassium chloride 40 mEq p.o. twice daily. 2. Chronic kidney disease stage 4 the patient's renal function is stable, close to baseline. Bumex dose will be started tomorrow morning. 3. Cor pulmonale the patient's volume status is optimal. Okay to continue Amiloride 10 mg p.o. twice daily and tomorrow morning Bumex will be restarted at 3 mg p.o. twice daily. Metolazone will be given as needed. 4. Hypertension - continue Metoprolol and Isosorbide along with the diuretics as mentioned above. 5. Atrial fibrillation - heart rate is controlled with Digoxin and Metoprolol. Anticoagulation is with Warfarin. 6. Chronic gout - continue current dose of Allopurinol.
[2020-05-07] VITALS: BP 140/77
[2020-05-07 04:00] VITALS: BP 140/86
[2020-05-07 07:22] LABS: HEMATOCRIT 42.9 % (42.0-52.0); HEMOGLOBIN 14.3 g/dl (13.5-17.5); MEAN CORPUSCULAR HGB CONC 33.3 g/dl (32.0-36.5); MEAN CORPUSCULAR VOLUME 92.9 fl (80.0-96.0); PLATELET COUNT, AUTOMATED 143 10^3/uL (150-450); RED BLOOD COUNT 4.62 10^6/uL (4.30-6.10); WHITE BLOOD COUNT 9.1 10^3/uL (4.0-10.0)
[2020-05-07 07:36] LABS: INR 1.57; PROTHROMBIN TIME 19.1 SECONDS (12.5-14.3)
[2020-05-07 07:40] LABS: CALCIUM LEVEL 8.4 MG/DL (8.8-10.2); CREATININE FOR GFR 2.08 MG/DL (0.70-1.30); GLOMERULAR FILTRATION RATE 34.1 (>49); MAGNESIUM LEVEL 2.2 MG/DL (1.8-2.4); POTASSIUM SERUM 3.6 MEQ/L (3.5-5.1)
--- NOTE | 2020-05-07 07:43 | ECHO ---
DATE OF PROCEDURE: 05/06/2020 Age: 69 Gender: Male REFERRING PHYSICIAN: Jennifer Kraft MD PATIENT LOCATION: Room 3214 REASON FOR STUDY: Abnormal EKG. 2D MEASUREMENTS: IVS 1.3 cm LV 4.8 cm LVPW 1.5 cm LA 3.3 cm Aorta 3.2 cm DOPPLER MEASUREMENT Mitral E 0.6 Mitral A 0.65 with a ratio of 0.91 2D COMMENTS: 1. Technically limited study due to poor acoustic window. 2. The left ventricular size is normal with mildly to moderately increased left ventricular wall thickness. Left ventricular systolic function appeared to be normal, estimated at 55% to 60%. 3. Normal left atrium. 4. The right atrium and the right ventricle appeared to be normal in limited views. 5. Normal aortic root. 6. A small pericardial effusion was noted around the heart, no evidence of cardiac tamponade. 7. The aortic valve, mitral valve, and tricuspid valve appeared to be normal. 8. The inferior vena cava was not well visualized. DOPPLER: No significant valvular abnormalities detected. Abnormal relaxation pattern was noted across the mitral valve leaflets, as well as the mitral valve annulus consistent with features of grade 1 left ventricular diastolic dysfunction. IMPRESSION: 1. Technically limited study due to poor acoustic window. 2. Low-normal global left ventricular systolic function with mild to moderate concentric left ventricular hypertrophy. 3. Abnormal relaxation pattern was noted across the mitral valve leaflets, as well as the mitral valve annulus consistent with features of grade 1 left ventricular diastolic dysfunction. 4. A small pericardial effusion was noted. No evidence of cardiac tamponade. MTDD
[2020-05-07 08:58] VITALS: BP 128/68
[2020-05-07] MEDS: PEN NEEDLE (USE WITH HUMULIN U-500 INSULIN PEN) XX SCH ×2 (09:13→17:45)
[2020-05-07] MEDS: HUMULIN R U-500 KWIKPEN 500UNITS/ML 3ML SYRINGE (J1815 PER 5UNITS) SC SCH ×2 (09:13→17:45)
[2020-05-07] MEDS: VANCOMYCIN HCL 750 MG, VIAL MATE ADAPTER 1 EACH in D5W 250 ML IV SCH ×2 (09:14→11:12)
[2020-05-07] MEDS: POTASSIUM CHLORIDE 10 MEQ SR TABLET PO SCH ×2 (09:15→20:25)
[2020-05-07] MEDS: ASPIRIN 81 MG ENTERIC TAB PO SCH (09:15)
[2020-05-07] MEDS: aMILoride 5 MG TAB PO SCH ×2 (09:15→16:26)
[2020-05-07] MEDS: DIGOXIN 0.125 MG TAB PO SCH (09:15)
[2020-05-07] MEDS: ATORVASTATIN 20 MG TAB PO SCH (09:15)
[2020-05-07] MEDS: METOPROLOL TART 25 MG TABLET PO SCH ×2 (09:16→20:27)
[2020-05-07] MEDS: HumaLOG INSULIN (NovoLOG) PER UNIT SC SCH ×4 (09:16→20:28)
[2020-05-07] MEDS: CLOPIDOGREL 75 MG TAB PO SCH (09:17)
[2020-05-07] MEDS: allopurinoL 300 MG TAB PO SCH (09:17)
[2020-05-07] MEDS: GABAPENTIN 300 MG CAP PO SCH ×3 (09:17→20:25)
[2020-05-07] MEDS: MULTIVITAMINS/MINERALS THERAP 1 TAB PO SCH (09:17)
[2020-05-07] MEDS: ISOSORBIDE MON. (IMDUR) 60 MG XR TAB PO SCH (09:17)
[2020-05-07] MEDS: OMEPRAZOLE 20 MG CAP PO SCH ×2 (09:17→20:25)
[2020-05-07] MEDS: BUMETANIDE 1 MG TAB PO SCH ×2 (11:12→16:26)
[2020-05-07 13:37] VITALS: BP 128/76
[2020-05-07 16:16] VITALS: BP 135/65
[2020-05-07] MEDS: WARFARIN SOD 5MG TAB PO SCH (16:28)
--- NOTE | 2020-05-07 17:10 | IPNPDOC ---
Text Note Date of Service The patient was seen on 05/07/20. NOTE Subjective: No any acute events overnight. Patient denied fever, chills, nausea, vomiting, diarrhea or dysuria Objective: GENERAL APPEARANCE: NAD HEENT: no scleral icterus, no JVD, EOMI CARDIOVASCULAR: S1S2 LUNGS: CTA ABDOMEN: soft & not tender w palpitation MUSCULOSKELETAL: no cyanosis, no swelling INTEGUMENT: no generalized pallor NEUROLOGICAL: cranial nerve function from 2-12 intact intact, follows commands, speech not dysarthric Assessment and plan 69-year-old male HTN, CAD (stent 10/2019), IDDM, CKD4, CHFpEF, DVT/PE on Coumadin who presents to the ED for RLE weakness with falls at home. Patient was found to have sepsis secondary to discitis at the level LII-L3. Patient received broad- spectrum antibiotics. Sepsis Patient developed on the admission leukocytosis with tachypnea. Also spiking fever of 101.9 Patient received broad-spectrum antibiotics with positive dynamics L2/L3 discitis IV Cefepime and vancomycin for broad coverage which includes treatment for discitis CT perc drainage L2-3 to try to confirm discitis will be done tomorrow ID recommended 6 weeks of antibiotics RLE/RUE weakness Back to baseline vs on admission after 3 days. MRI ruled out stroke. MRI w/o contrast spine showing severe lumbar spinal stenosis. Dr St orthopedic surgeon was consulted, repeat MRI of lumbar spine also with motion artifact patient shouldn't get contrast at this time due to his kidney function. PT/OT MENDEZ on CKD stage IV with history of IgA nephropathy At baseline follows with Dr. Szymanski freight solicitor Rhabdomyolysis Resolving Poorly controlled IDDM Diabetes diet Insulin sliding scale Continue Humulin 100 units twice a day Lactic acidosis Resolved Hyponatremia Resolved CHFpEF continue home cardioprotective medications Coronary artery disease with stenting in October 2019 continue Patient received dual antiplatelet therapy with Coumadin, I will DC aspirin MENDEL Continue CPAP Hx DVT/PE On Coumadin. Gout Allopurinol Hypertension Continue home meds Peripheral neuropathy: gabapentin Hyperlipidemia statin GERD Continue home omeprazole dose VS,Fishbone, I+O VS, Fishbone, I+O Laboratory Tests 05/07/20 06:37 Vital Signs Date Time Temp Pulse Resp B/P (MAP) Pulse Ox O2 Delivery O2 Flow Rate FiO2 05/07/20 16:16 96.9 76 18 135/65 (88) 97 NIPPV (BIPAP/CPAP) 05/07/20 16:00 2.0 I&O- Last 24 Hours up to 6 AM 05/07/20 06:00 Intake Total 2855 ml Output Total 1650 ml Balance 1205 ml NOEL FIELD DO May 07, 2020 17:10
--- NOTE | 2020-05-07 19:01 | IPN ---
PROGRESS NOTE DATE: 05/02/2020 SUBJECTIVE: Mr. Galindo is sitting in his chair. He sat all day in the chair. He was able to walk all around the nurses' station, go up and down the stairs by steps. He is anxious to go to rehab tomorrow and have his PICC line placed. His back pain is markedly better. He has no leg pain. White count is 9.1, hemoglobin 14.3, hematocrit 42.9, platelets 143,000. ESR 58. Sodium 133, potassium 3.6, chloride 98, bicarb 27, BUN 42, creatinine 2.08, glucose 112, calcium 8.4, magnesium 2.2. CRP 12.8 on May 05. Blood cultures x3 days have remained negative. Respiratory panel was negative. OBJECTIVE: VITAL SIGNS: Temperature is 96.9, pulse 76, respirations 18, blood pressure 135/65, O2 saturation 97% on room air. HEART: Normal S1, S2. No murmurs, distant. LUNGS: Clear. No wheezes, rales, or rhonchi. ABDOMEN: Morbidly obese, soft, and nontender. EXTREMITIES: Trace edema bilaterally with no clubbing or cyanosis. NEUROLOGIC: Motor strength is normal in all extremities lower and upper. BACK: Mild lumbosacral tenderness around L1 to L4. IMPRESSION: 1. Probable discitis of L2-L3 based on MRI findings associated with right lower extremity sciatica, which has resolved. Evidence of bone marrow edema on MRI. The patient has improved with intravenous (IV) antibiotics including cephalosporin and vancomycin. He is currently on ceftriaxone 2 grams IV every 24 hours and vancomycin 1.5 grams IV every 24 hours. Methicillin-resistant Staphylococcus aureus (MRSA) screen was negative. The patient is scheduled to have a disc space biopsy tomorrow and peripherally inserted central catheter (PICC) line. 2. History of chronic kidney disease. Creatinine is back to baseline down from 2.98 to 2.08. Will monitor vancomycin for toxicity to make sure he does not have worsening kidney function. PLAN: Continue with current antibiotics including vancomycin and Rocephin. The patient will need antibiotics for a total of six weeks. He will have his disc space biopsy tomorrow, but cultures may be unrevealing; due to the fact that he has already been on antibiotics. His end of therapy would be 06/14 for a total of six weeks of IV treatment for this probable L2-L3 discitis. Monitor CBC, CMP, ESR, CRP weekly.
[2020-05-07 19:58] VITALS: BP 152/74
[2020-05-07] MEDS: MONTELUKAST 10 MG TAB PO SCH (20:25)
[2020-05-07] MEDS: cefTRIAXone SOD 2 GM in D5W MINI-BAG PLUS 50 ML IV SCH (20:27)
[2020-05-08] VITALS: BP 134/77
[2020-05-08 04:00] VITALS: BP 128/82
[2020-05-08 04:34] LABS: APPEARANCE, URINE CLEAR (CLEAR); BACTERIA, URINE AUTO NEGATIVE (NEGATIVE); BILIRUBIN, URINE AUTO NEGATIVE (NEGATIVE); BLOOD, URINE BLOOD NEGATIVE (NEGATIVE); COLOR, URINE YELLOW (YELLOW); GLUCOSE, URINE (UA) AUTO 3+ mg/dL (NEGATIVE); KETONE, URINE AUTO NEGATIVE (NEGATIVE); LEUKOCYTE ESTERASE, URINE AUTO NEGATIVE (NEGATIVE); NITRITE, URINE AUTO NEGATIVE (NEGATIVE); PROTEIN, URINE AUTO NEGATIVE (NEGATIVE); RBC, URINE AUTO 0 /HPF (0-3); SPECIFIC GRAVITY URINE AUTO 1.008 (1.002-1.035); SQUAMOUS EPITHELIAL CELL UR AU 0 /HPF (0-6); UROBILINOGEN, URINE AUTO 0.2 mg/dL (0.0-2.0); WBC, URINE AUTO 0 /HPF (0-3)
[2020-05-08 05:38] LABS: HEMOGLOBIN 14.3 g/dl (13.5-17.5); MEAN CORPUSCULAR HEMOGLOBIN 31.4 pg (27.0-33.0); MEAN CORPUSCULAR VOLUME 92.3 fl (80.0-96.0); PLATELET COUNT, AUTOMATED 166 10^3/uL (150-450); RED BLOOD COUNT 4.55 10^6/uL (4.30-6.10); WHITE BLOOD COUNT 8.5 10^3/uL (4.0-10.0)
[2020-05-08 06:01] LABS: INR 1.67; PROTHROMBIN TIME 20.1 SECONDS (12.5-14.3)
[2020-05-08 06:15] LABS: C REACTIVE PROTEIN QUANTITATIV 5.5 MG/DL (0.00-0.30); CALCIUM LEVEL 8.5 MG/DL (8.8-10.2); CREATININE FOR GFR 2.16 MG/DL (0.70-1.30); ERYTHROCYTE SEDIMENTATION RATE 73 mm/hr (0-20); GLOMERULAR FILTRATION RATE 32.6 (>49); MAGNESIUM LEVEL 1.8 MG/DL (1.8-2.4); POTASSIUM SERUM 3.9 MEQ/L (3.5-5.1)
--- NOTE | 2020-05-08 08:07 | IPN ---
PROGRESS NOTE DATE: 05/07/2020 SUBJECTIVE: The patient was seen and examined at the bedside today morning. He is afebrile and hemodynamically stable. His diuretics have been resumed. A decision was finally made not to do any MRI or CT scan on the patient and he would continue the IV antibiotics. He is clinically getting better. OBJECTIVE: VITAL SIGNS: Temperature is 97 degrees Fahrenheit, blood pressure is 152/74, pulse is 81, respiratory rate is 18, saturating 98% on room air. INTAKE AND OUTPUT: Urine output is recorded as 1.6 liters yesterday and 1.6 liters so far today since overnight. Weight on the bed scale is 146.3 kg. GENERAL: The patient is awake, alert and oriented x3, morbidly obese, sitting up on the sofa in no apparent distress. HEAD AND NECK: Extraocular muscles intact. Pupils equally round and reactive to light. Mucous membranes are moist. NECK: Supple. There is no JVD. CARDIOVASCULAR: S1 and S2 regular rate. No edema of the bilateral lower extremities. RESPIRATORY: Chest is clear to auscultation bilaterally. Bilateral equal air entry. No rales or rhonchi. ABDOMEN: Soft. Positive bowel sounds, nontender. No organomegaly. MUSCULOSKELETAL: No clubbing or cyanosis. Pulses are +2. 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 Power is 5/5 in all extremities. LABORATORY DATA: CBC showed a WBC of 9.1, hemoglobin 14.3, platelets of 143,000. BMP showed a sodium of 133, potassium 3.6, chloride 98, bicarbonate 27, BUN 42, creatinine is 2, it was 2.4 yesterday. Magnesium 2.2. Microbiology: Repeat blood culture on May 02 is negative. CURRENT INPATIENT MEDICATIONS: The patient's medications were all reviewed by myself. He has been resumed on Bumex 3 mg p.o. twice a day, he continues to be on amiloride 10 mg p.o. twice a day and potassium chloride 40 mEq p.o. twice a day and he continues to be on IV Ceftriaxone and Vancomycin. ASSESSMENT AND PLAN: 1. Chronic kidney disease Stage IV. Renal function is close to baseline. Bumex was held for a few days. It is okay to continue the current dose of diuretics now. 2. Hypokalemia. Metolazone has been stopped. He continues to be on Amiloride 10 mg p.o. twice a day. Continue potassium chloride 40 mEq p.o. twice a day. 3. Cor pulmonale. Volume status is optimized. Continue current diuretic dose as mentioned above. 4. Chronic gout. Continue current dose of Allopurinol. 5. Probable discitis. The patient is getting IV antibiotics as per ID recommendations and clinically he is improving.
[2020-05-08] MEDS: BUMETANIDE 1 MG TAB PO SCH ×2 (08:57→16:48)
[2020-05-08] MEDS: ATORVASTATIN 20 MG TAB PO SCH (08:58)
[2020-05-08] MEDS: POTASSIUM CHLORIDE 10 MEQ SR TABLET PO SCH (08:58)
[2020-05-08] MEDS: OMEPRAZOLE 20 MG CAP PO SCH (08:59)
[2020-05-08] MEDS: allopurinoL 300 MG TAB PO SCH (08:59)
[2020-05-08] MEDS: ISOSORBIDE MON. (IMDUR) 60 MG XR TAB PO SCH (09:00)
[2020-05-08] MEDS: DIGOXIN 0.125 MG TAB PO SCH (09:01)
[2020-05-08] MEDS: MULTIVITAMINS/MINERALS THERAP 1 TAB PO SCH (09:01)
[2020-05-08] MEDS: GABAPENTIN 300 MG CAP PO SCH ×2 (09:01→15:23)
[2020-05-08 09:02] VITALS: BP 135/78
[2020-05-08] MEDS: METOPROLOL TART 25 MG TABLET PO SCH (09:02)
[2020-05-08] MEDS: HUMULIN R U-500 KWIKPEN 500UNITS/ML 3ML SYRINGE (J1815 PER 5UNITS) SC SCH ×2 (09:03→17:08)
[2020-05-08] MEDS: PEN NEEDLE (USE WITH HUMULIN U-500 INSULIN PEN) XX SCH ×2 (09:03→17:09)
[2020-05-08] MEDS: HumaLOG INSULIN (NovoLOG) PER UNIT SC SCH ×3 (09:04→17:09)
[2020-05-08 09:09] VITALS: BP 135/78
[2020-05-08] MEDS: aMILoride 5 MG TAB PO SCH ×2 (09:17→17:01)
[2020-05-08] MEDS: CLOPIDOGREL 75 MG TAB PO SCH (10:09)
[2020-05-08] MEDS: VANCOMYCIN HCL 750 MG, VIAL MATE ADAPTER 1 EACH in D5W 250 ML IV SCH (10:10)
[2020-05-08] MEDS ORDERED: metOLazone 2.5 MG TAB PO ONE (13:00)
[2020-05-08 15:30] VITALS: BP 109/62
[2020-05-08] MEDS ORDERED: VANCOMYCIN HCL 750 MG, VIAL MATE ADAPTER 1 EACH in D5W 250 ML IV SCH ×2 (16:00→17:00)
[2020-05-08] MEDS: WARFARIN SOD 5MG TAB PO SCH (16:47)
--- NOTE | 2020-05-08 17:09 | REP ---
INDICATION: L2-3 discitis. COMPARISON: None. TECHNIQUE: The procedure is performed by Adrianne Lira [facility] [place], under the direct supervision of Dr. Lang. The risks and benefits of the procedure were explained to the patient and informed consent was obtained both orally and written. Directly prior to the start of the procedure, a formal timeout was done in the exam room. The L2-3 disc space was localized using CT guidance. Skin was prepped and draped in the usual sterile fashion. Eight ml of buffered lidocaine was used as a local anesthetic. FINDINGS: Using CT guidance a 17/18 gauge coaxial needle biopsy system was inserted and advanced into the L2-L3 disc space. And aspiration was attempted 1st but no fluid was retrieved. Ten core biopsy samples were obtained and sent to the lab. CT images obtained directly after the biopsy show no evidence of hematoma.. IMPRESSION: CT guided biopsy and attempted aspiration of the L2-3 discs space. <Electronically signed by Adrianne Lira > 05/08/20 1702 <Electronically signed by Weston Lang > 05/08/20 1701
--- NOTE | 2020-05-08 17:10 | REP ---
PROCEDURE NAME: PICC LINE INSERTION W/SITERITE CLINICAL INFORMATION: discitis. COMPARISON: None. PROCEDURE DESCRIPTION: The procedure was performed by MALCOM Dotson, under the direct supervision of Dr. Lang. The risks and benefits of the procedure were explained to the patient and an informed consent was obtained both verbally and written. Directly prior to the start of the procedure a formal time-out was completed in the procedure room. The right medial brachial vein was localized using ultrasound guidance. The skin was prepped and draped in sterile fashion. One mL of 1% lidocaine 10 mg/mL was used as a local anesthetic. Using ultrasound guidance the right medial brachial vein was cannulated, and a 0.018 guidewire was inserted and advanced to the level of SVC using fluoroscopic guidance. The needle was removed and a 5.5 Bahraini dilator and peel-away sheath was inserted over the guidewire. A 5.5 [place]raini dual lumen catheter was cut to a length of 40 cm. The dilator was removed and the catheter was inserted over the guidewire with the tip ending at the level of the SVC. The peel-away sheath was removed and the catheter was flushed with heparinized saline as per hospital protocol. The catheter was affixed to the skin and a sterile dressing was applied. The patient tolerated the procedure well and there were no immediate complications. CONCLUSION: PICC line insertion into the right medial brachial vein. 0.4 minutes of fluoroscopy time was utilized for this procedure. Some fluoroscopic images are performed with last image hold technology. These images require no additional radiation. <Electronically signed by Adrianne Lira > 05/08/20 1656 <Electronically signed by Weston Lang > 05/08/20 1703
--- NOTE | 2020-05-08 18:06 | DS.PDOC ---
Discharge Summary General Date of Admission May 02, 2020 at 17:45 Date of Discharge 05/08/20 Discharge Summary PROCEDURES PERFORMED DURING STAY: CT guided biopsy ADMITTING DIAGNOSES: Sepsis L2/L3 discitis RLE/RUE weakness MENDEZ on CKD stage IV with history of IgA nephropathy Rhabdomyolysis Poorly controlled IDDM Lactic acidosis Hyponatremia CHFpEF Coronary artery disease MENDEL Hx DVT/PE Gout Hypertension Peripheral neuropathy: Hyperlipidemia GERD DISCHARGE DIAGNOSES: Sepsis L2/L3 discitis RLE/RUE weakness MENDEZ on CKD stage IV with history of IgA nephropathy Rhabdomyolysis Poorly controlled IDDM Lactic acidosis Hyponatremia CHFpEF Coronary artery disease MENDEL Hx DVT/PE Gout Hypertension Peripheral neuropathy: Hyperlipidemia GERD COMPLICATIONS/CHIEF COMPLAINT: Acute Renal Failure/Rhabdomyolysis/Right Leg Weekn. HISTORY OF PRESENT ILLNESS: Mr. Galindo is a 69-year-old gentleman with a history of coronary artery disease, DVT and PE on Coumadin, hypertension, who was doing well the day before admission. On the morning of admission, he woke up in the morning. Trying to get out of bed, he had severe back pain and right lower extremity weakness. He fell. He tried to get back to his bed and laid down and rested for a couple hours. When he got up again, he had similar problem and fell again. He had no loss of consciousness, no chest pain. He had no loss of consciousness, no chest pain. He had some shortness of breath. He has a history of chronic kidney disease with diabetes with bilateral neuropathy in the stocking distribution. He also complains of numbness in both hands. He was not a very good historian and thought he has right upper extremity and lower extremity weakness but it seems to me like he only had right lower extremity weakness. He has no fever or chills, no nausea, vomiting or diarrhea. In the emergency room, he had an MRI/MRA of the brain which did not suggest any acute stroke. MRI of the lumbar spine was questionable for discitis. He did not have contrast due to chronic kidney disease. HOSPITAL COURSE: During hospital stay following issue addressed Sepsis Patient developed on the admission leukocytosis with tachypnea. Also spiking fever of 101.9 Patient received broad-spectrum antibiotics with positive dynamics L2/L3 discitis IV Cefepime and vancomycin for broad coverage which includes treatment for discitis CT perc drainage L2-3 to try to confirm discitis was done, result pending ID recommended 6 weeks of antibiotics RLE/RUE weakness Back to baseline vs on admission after 3 days. MRI ruled out stroke. MRI w/o contrast spine showing severe lumbar spinal stenosis. Dr St orthopedic surgeon was consulted, repeat MRI of lumbar spine also with motion artifact patient shouldn't get contrast at this time due to his kidney function. 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 ALLERGIES: Please see below. PHYSICAL EXAMINATION ON DISCHARGE: VITAL SIGNS: Please see below. GENERAL APPEARANCE: NAD HEENT: no scleral icterus, no JVD, EOMI CARDIOVASCULAR: S1S2 LUNGS: CTA ABDOMEN: soft & not tender w palpitation MUSCULOSKELETAL: no cyanosis, no swelling INTEGUMENT: no generalized pallor NEUROLOGICAL: cranial nerve function from 2-12 intact intact, follows commands, speech not dysarthric LABORATORY DATA: Please see below. IMAGING: Lumbar spine MRI without contrast shows bone marrow edema of L2-L3, no compression fracture, atrophic vertebral disc with surrounding soft tissue, concerning for discitis. 8 mm L4-L5 disc herniation. Exam limited by motion artifacts. CT scan with low probability for PE. Cervical spine MRI shows degenerative disc disease, multilevel with spondylosis, left C5-6 parasagittal disc protrusion with compression possibly of the left exiting root. PROGNOSIS: Good ACTIVITY: [As tolerated]. DIET: Cardiac DISPOSITION: ARU DISCHARGE INSTRUCTIONS: Follow-up with ID, continue antibiotics for 6 weeks DISCHARGE CONDITION: [Stable]. TIME SPENT ON DISCHARGE: Greater than 30 minutes. Vital Signs/I&Os Vital Signs Date Time Temp Pulse Resp B/P (MAP) Pulse Ox O2 Delivery O2 Flow Rate FiO2 05/08/20 15:30 96.8 73 20 109/62 (78) 97 Room Air 05/07/20 16:00 2.0 I&O- Last 24 Hours up to 6 AM 05/08/20 06:00 Intake Total 1210 ml Output Total 2375 ml Balance -1165 ml Laboratory Data Labs 24H Laboratory Tests 2 05/07/20 19:31: Bedside Glucose (Misc Panel) 352H 05/08/20 04:15: Urine Color YELLOW, Urine Appearance CLEAR, Urine pH 6.0, Urine Specific [place] 1.008, Urine Protein NEGATIVE, Urine Glucose (Auto)(UA) 3+H, Urine Ketones (Auto) NEGATIVE, Urine Blood NEGATIVE, Urine Nitrite NEGATIVE, Urine Bilirubin NEGATIVE, Urine Urobilinogen 0.2, Urine Leukocyte Esterase (Auto) NEGATIVE, Urine WBC (Auto) 0, Urine RBC (Auto) 0, Urine Hyaline Casts (Auto) 0, Urine Bacteria (Auto) NEGATIVE, Urine Squamous Epithelial Cells 0, Urine Sperm (Auto) 05/08/20 05:17: Nucleated Red Blood Cells % (auto) 0.0, Erythrocyte Sedimentation Rate 73H, P rothrombin Time 20.1H, Prothromb Time International Ratio 1.67, Anion Gap 8, Glomerular Filtration Rate 32.6L, Calcium Level 8.5L, Magnesium Level 1.8, C- Reactive Protein, Quantitative 5.50H 05/08/20 08:55: Vancomycin Level Trough 18.4 05/08/20 15:03: Bedside Glucose (Misc Panel) 224H 05/08/20 16:59: Bedside Glucose (Misc Panel) 256H CBC/BMP Laboratory Tests 05/08/20 05:17 FSBS Laboratory Tests Test 05/07/20 19:31 05/08/20 15:03 05/08/20 16:59 Range/Units Bedside Glucose (Misc Panel) 352 224 256 80-115 MG/DL Microbiology Microbiology 05/02/20 Blood Culture - Final, Complete NO GROWTH AFTER 5 DAYS 05/02/20 Blood Culture - Final, Complete NO GROWTH AFTER 5 DAYS 05/02/20 Respiratory Virus Panel (PCR) (GUILLERMO) - Final, Complete Discharge Medications Scheduled Allopurinol (Zyloprim) 300 Mg Tablet, 300 MG PO DAILY, (Reported) Amiloride HCl (Amiloride HCl) 5 Mg Tab, 10 MG PO QAM, (Reported) Amiloride HCl (Amiloride HCl) 5 Mg Tablet, 5 MG PO QHS, (Reported) Atorvastatin Calcium (Atorvastatin Calcium) 80 Mg Tablet, 80 MG PO DAILY, (Reported) Bumetanide (Bumetanide) 1 Mg Tab, 3 MG PO BID, (Reported) Calcium Carbonate/Vitamin D3 (Calcium 600-Vit D3 400 Tablet) 1 Tab Tab, 1 TAB PO DAILY, (Reported) Clopidogrel Bisulfate (Clopidogrel) 75 Mg Tablet, 75 MG PO DAILY, (Reported) Dulaglutide (Trulicity) 1.5 Mg/0.5 Ml Inj, 1.5 MG SC 1XWK, (Reported) WEDNESDAY Gabapentin (Gabapentin) 300 Mg Capsule, 300 MG PO TID, (Reported) Insulin Human Lispro (Humalog) 1 Units/0.01 Ml Inj, 1 DOSE SC ACHS, (Reported) PER SLIDING SCALE - HAS RX FOR U-200 BUT ISN'T SURE WHICH ONE HE IS SUPPOSED TO BE TAKING. Insulin Human Regular (Humulin R U-500 Kwikpen) 500 Unit/1 Ml Insuln.pen, 100 UNITS SC BID, (Reported) Isosorbide Mononitrate (Isosorbide Mononitrate ER) 60 Mg Tab.er.24h, 60 MG PO DAILY, (Reported) Magnesium Oxide (Magnesium Oxide) 500 Mg Tablet, 1,000 MG PO BID, (Reported) Metolazone (Metolazone) 2.5 Mg Tab, 2.5 MG PO 3XW, (Reported) WED, WED, FRI Metoprolol Tartrate (Metoprolol Tartrate) 25 Mg Tablet, 25 MG PO BID, (Reported) Montelukast Sodium (Montelukast Sodium) 10 Mg Tab, 10 MG PO QHS, (Reported) Multivitamins (Thera M Plus Tablet) 1 Each Tablet, 1 TAB PO DAILY, (Reported) Summit-3/Dha/Epa/Fish Oil (Fish Oil 1,000 mg Softgel) 1 Each Capsule, 2,000 MG PO DAILY, (Reported) Omeprazole (Omeprazole) 40 Mg Cap, 40 MG PO BID, (Reported) Potassium Chloride (Klor-Con M20) 20 Meq Tabcr, 60 MEQ PO BID, (Reported) Potassium Chloride (Potassium Chloride) 20 Meq Tab.er.prt, 40 MEQ PO 2XW, (Reported) @NOON ON WED, WED, FRI Potassium Chloride (Potassium Chloride) 20 Meq Tab.er.prt, 20 MEQ PO 4XWK, (Reported) @NOON ON SUN, , TH, SAT Warfarin Sodium (Warfarin Sodium) 5 Mg Tablet, 5 MG PO 6XWK, (Reported) SUN, WED, , WED, TH, SAT Warfarin Sodium (Warfarin Sodium) 5 Mg Tablet, 2.5 MG PO 1XWK, (Reported) FRI Scheduled PRN Docusate Sodium (Dok) 100 Mg Tab, 100 MG PO BID PRN for CONSTIPATION, (Reported) Nitroglycerin (Nitroglycerin) 0.4 Mg Sub, 0.4 MG SL NITRO PRN for CHEST PAIN, (Reported) Allergies Coded Allergies: DANIELA Inhibitors (Verified Allergy, Intermediate, RASH, 05/03/20) spironolactone (Verified Adverse Reaction, Intermediate, gynecomastia, 05/03/20) NOEL FIELD DO May 08, 2020 18:05
== END 2020-05-08 17:45 | DRG 872 ==
LOC: M ED 12:01 → M ED INP 17:45 → ENRESERV 23:47 → M PCU 05-03 01:50
PROVIDERS: ADMIT Family Medicine; ATTEND Internal Medicine
PROC: 02HV33Z Insertion of Infusion Device into Superior Vena Cava, Percutaneous Approach (ICD-10-PCS; principal; 2020-05-08 13:00)
DX: A41.9 Sepsis, unspecified organism (principal); N17.9 Acute kidney failure, unspecified; E87.1 Hypo-osmolality and hyponatremia; I13.0 Hypertensive heart and chronic kidney disease with heart failure and stage 1 through stage 4 chronic kidney disease, or unspecified chronic kidney disease; M62.82 Rhabdomyolysis; N18.4 Chronic kidney disease, stage 4 (severe); E87.2 Acidosis; I50.32 Chronic diastolic (congestive) heart failure; R29.6 Repeated falls; R53.1 Weakness; M46.46 Discitis, unspecified, lumbar region; E11.51 Type 2 diabetes mellitus with diabetic peripheral angiopathy without gangrene; I25.10 Atherosclerotic heart disease of native coronary artery without angina pectoris; K21.9 Gastro-esophageal reflux disease without esophagitis; E78.5 Hyperlipidemia, unspecified; M10.9 Gout, unspecified; G47.33 Obstructive sleep apnea (adult) (pediatric); Z86.711 Personal history of pulmonary embolism; Z86.718 Personal history of other venous thrombosis and embolism; Z79.899 Other long term (current) drug therapy; Z88.8 Allergy status to other drugs, medicaments and biological substances; Z79.01 Long term (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 anticoagulants; Z95.2 Presence of prosthetic heart valve; Z79.4 Long term (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 insulin

== ENCOUNTER 2020-05-07 12:44 | Inpatient (IN) | payer MEDICARE, MEDICAID ==
[~2020-05-07] VITALS: Ht 177.8 cm; Wt 143.2 kg
[~2020-05-07 12:44] MED LIST changes: +ASPI-161 PO; +ATOR80TA59 PO; +MAGN500T12 PO; +OMEG10002 PO; +POTA20TA6 PO; +VITMTA PO; +WARF-23 PO
[2020-05-08] MEDS ORDERED: LIDOCAINE 1% MDV 20ML VIAL As Ordered ONE (11:01)
[2020-05-08] MEDS ORDERED: ACETAMINOPHEN TAB 650MG DOSE (2X325MG) PO PRN (11:30)
[2020-05-08] MEDS ORDERED: GLUCOSE 4GM CHEW TABLET PO PRN (11:30)
[2020-05-08] MEDS ORDERED: GLUCAGON INJ 1MG VIAL SC PRN (11:30)
[2020-05-08] MEDS ORDERED: DEXTROSE 50% 50 ML SYRINGE IV PRN (11:30)
[2020-05-08] MEDS ORDERED: BISACODYL 10 MG SUPP PR PRN (11:30)
[2020-05-08] MEDS ORDERED: VANCOMYCIN HCL 750 MG in IV FLUID PLACE HOLDER 1 EA IV SCH (11:30)
[2020-05-08] MEDS ORDERED: MOM 30ML SUSPENSION UDC PO PRN (11:30)
[2020-05-08] MEDS ORDERED: HumaLOG INSULIN (NovoLOG) PER UNIT SC SCH (12:00)
[2020-05-08] MEDS: LACTOBACILLUS ACIDOPHILUS CAP (BACID) PO SCH ×2 (16:00→20:10)
[2020-05-08] MEDS: GABAPENTIN 300 MG CAP PO SCH ×2 (16:00→20:10)
[2020-05-08] MEDS: REMEDY PHYTOPLEX Z-GUARD PASTE 113GM TUBE (FROM STOREROOM PRODUCT) TOP SCH ×2 (16:00→20:14)
[2020-05-08] MEDS ORDERED: HumuLIN R (REGULAR) INSULIN (NovoLIN R) **100U/ML** PER UNIT SC SCH (17:45)
[2020-05-08 18:10] VITALS: BP 150/60
[2020-05-08 20:00] VITALS: BP 143/67
[2020-05-08] MEDS ORDERED: cefTRIAXone SOD 2 GM in D5W MINI-BAG PLUS 50 ML IV SCH (20:00)
[2020-05-08] MEDS: OMEPRAZOLE 20 MG CAP PO SCH (20:09)
[2020-05-08] MEDS: HumaLOG INSULIN (NovoLOG) PER UNIT SC SCH (20:09)
[2020-05-08] MEDS: cefTRIAXone SOD 2 GM in D5W MINI-BAG PLUS 50 ML IV SCH (20:09)
[2020-05-08] MEDS: DOCUSATE SODIUM 100MG CAPSULE PO SCH (20:10)
[2020-05-08] MEDS: SENNA 8.6 MG TAB (SENOKOT) PO SCH (20:10)
[2020-05-08] MEDS: POTASSIUM CHLORIDE 10 MEQ SR TABLET PO SCH (20:10)
[2020-05-08] MEDS: METOPROLOL TART 25 MG TABLET PO SCH (20:13)
[2020-05-09 05:44] VITALS: BP 124/70
[2020-05-09 06:55] LABS: BASO # 0.1 10^3/uL (0.0-0.2); BASO % 0.5 % (0.0-1.0); EOS # 0.4 10^3/uL (0.0-0.5); EOS % 3.8 % (0.0-3.0); HEMATOCRIT 45.7 % (42.0-52.0); HEMOGLOBIN 15.8 g/dl (13.5-17.5); LYMPH # 1.7 10^3/uL (1.5-5.0); LYMPH % 15.5 % (24.0-44.0); MEAN CORPUSCULAR HEMOGLOBIN 32.4 pg (27.0-33.0); MEAN CORPUSCULAR HGB CONC 34.6 g/dl (32.0-36.5); MEAN CORPUSCULAR VOLUME 93.6 fl (80.0-96.0); MONO # 0.7 10^3/uL (0.0-0.8); MONO % 6.5 % (0.0-5.0); NEUTROPHILS # 8.2 10^3/uL (1.5-8.5); PLATELET COUNT, AUTOMATED 208 10^3/uL (150-450); RED BLOOD COUNT 4.88 10^6/uL (4.30-6.10); WHITE BLOOD COUNT 11.3 10^3/uL (4.0-10.0)
[2020-05-09 07:05] LABS: INR 1.56
[2020-05-09 07:30] LABS: ALBUMIN 2.9 GM/DL (3.2-5.2); CREATININE FOR GFR 2.12 MG/DL (0.70-1.30); GLOMERULAR FILTRATION RATE 33.3 (>49); POTASSIUM SERUM 3.5 MEQ/L (3.5-5.1); TOTAL PROTEIN 7.2 GM/DL (6.4-8.2)
[2020-05-09] MEDS: HumaLOG INSULIN (NovoLOG) PER UNIT SC SCH ×4 (07:30→21:48)
--- NOTE | 2020-05-09 08:55 | IPN ---
PROGRESS NOTE DATE: 05/08/2020 SUBJECTIVE: Patient was seen and examined at the bedside today morning. He is afebrile. He is hemodynamically stable. He reports his pain in the back is getting better. He continues to be on diuretics. Renal function is stable. The patient reports that he is going to be transferred to rehab today. OBJECTIVE: VITAL SIGNS: Temperature is 96.6 degrees Fahrenheit, blood pressure is 150/60, pulse is 84, respirations are 19, saturating 92% on room air. INTAKE AND OUTPUT: Urine output was 1.6 liters yesterday and 2.9 liters so far today since overnight. Weight on the bed scale is 147.7 kg. GENERAL: Patient is awake, alert and oriented x3, morbidly obese, sitting up on the sofa. HEAD AND NECK: Pupils equally round and reactive to light. Mucous membranes are moist. Neck is supple. Mildly elevated JVD. CARDIOVASCULAR: S1 and S2, regular rate. Trace edema of the bilateral lower extremities. CHEST: Clear to auscultation bilaterally. Bilateral equal air entry. No rales or rhonchi. ABDOMEN: Soft, obese, positive bowel sounds. Nontender. MUSCULOSKELETAL: Trace edema of the bilateral lower extremities. 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 Power is 5/5 in all extremities. LABORATORY DATA: CBC showed a WBC of 8.5, hemoglobin 14.3, platelets of 166,000. Urinalysis done today showed 3+ glucose. No leukocyte esterase. No nitrates. BMP done today morning showed a sodium of 130, potassium 3.9, chloride 96, bicarbonate 26, BUN 41, creatinine 2.1, it was 2.08. Glucose was 409, calcium was 8.5, magnesium 1.8. C-reactive protein 5.5 which is getting better. Microbiology: Blood cultures are all negative. The patient went for abscess drainage of the L2-[address] guided biopsy and attempted aspiration of the L2-L3 disc space was done. No fluid was received. Cold biopsy samples were obtained and sent to the lab. CURRENT INPATIENT MEDICATIONS: The patient's medications were all reviewed by myself. She continues to be on Bumex 3 mg p.o. twice a day, amiloride 10 mg p.o. twice a day. I have given him one dose of metolazone 2.5 mg p.o. Otherwise, no change in the medications today. ASSESSMENT AND PLAN: 1. Chronic kidney disease Stage IV. Patient's renal function is stable and close to baseline. Creatinine has been fluctuating at around 2. Okay to continue current dose of diuretics. Since his weight is increasing, I have given him a dose of metolazone today. He usually takes metolazone 2.5 mg p.o. three times a week at his home as well. He will be monitored tomorrow morning for his response and if he tolerates and if renal function stays stay stable I will put him back on his home dose of metolazone. 2. Hypervolemic hyponatremia, sodium level should improve with improvement in the volume status. 3. Hypokalemia. Patient level is improved with increase in the dose of amiloride and daily potassium chloride. 4. Possible discitis. The patient's cold biopsy specimens were done today. He is being seen by Infectious Disease and he continues to be on Vancomycin and Ceftriaxone. C-reactive protein is improving. 5. Cor pulmonale, as mentioned above, the diuretic dose has been increased. Patient is diuresing well. 6. Hypertension, blood pressure is controlled with the recurrent regimen.
[2020-05-09] MEDS: OYSTER SHELL CALCIUM 500 MG TAB PO SCH (09:00)
[2020-05-09] MEDS: MULTIVITAMINS/MINERALS THERAP 1 TAB PO SCH (09:00)
[2020-05-09] MEDS: REMEDY PHYTOPLEX Z-GUARD PASTE 113GM TUBE (FROM STOREROOM PRODUCT) TOP SCH ×3 (09:00→21:48)
[2020-05-09] MEDS: ISOSORBIDE MON. (IMDUR) 60 MG XR TAB PO SCH (09:01)
[2020-05-09] MEDS: DOCUSATE SODIUM 100MG CAPSULE PO SCH ×2 (09:01→20:00)
[2020-05-09] MEDS: BUMETANIDE 1 MG TAB PO SCH ×2 (09:01→16:59)
[2020-05-09] MEDS: aMILoride 5 MG TAB PO SCH ×2 (09:01→20:33)
[2020-05-09] MEDS: OMEPRAZOLE 20 MG CAP PO SCH ×2 (09:01→20:32)
[2020-05-09] MEDS: ATORVASTATIN 20 MG TAB PO SCH (09:02)
[2020-05-09] MEDS: CLOPIDOGREL 75 MG TAB PO SCH (09:02)
[2020-05-09] MEDS: POTASSIUM CHLORIDE 10 MEQ SR TABLET PO SCH ×2 (09:02→20:33)
[2020-05-09] MEDS: LACTOBACILLUS ACIDOPHILUS CAP (BACID) PO SCH ×3 (09:02→20:32)
[2020-05-09] MEDS: METOPROLOL TART 25 MG TABLET PO SCH ×2 (09:03→20:34)
[2020-05-09] MEDS: allopurinoL 300 MG TAB PO SCH (09:03)
[2020-05-09] MEDS: GABAPENTIN 300 MG CAP PO SCH ×3 (09:03→20:32)
[2020-05-09] MEDS: DIGOXIN 0.125 MG TAB PO SCH (09:03)
[2020-05-09] MEDS: ASPIRIN 81 MG ENTERIC TAB PO SCH (09:03)
--- NOTE | 2020-05-09 09:04 | HPEPDOC ---
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 SOURCE OF ADMISSION INFORMATION: [facility] record and patient CHIEF COMPLAINT:L2-L3 discitis with spinal stenosis HISTORY OF PRESENT ILLNESS: 69M pmh Htn, obesity, CAD, DM with peripheral polyneuropathy, diastolic CHF, IgA nephrophathy, CKD4, DVT/PE on Coumadin, MENDEL, HLD who developed right lower and upper extremity weakness and difficulty walking so presented to [facility] ED on 05-02-20. Stroke work-up was negative and ultimately he was diagnosed with lumbar discitis with MRI showing, "Advanced degenerative spondylosis as above. Severe central spinal stenosis at L2-L3. Moderate spinal stenosis at L3-L4. Fluid signal in the L2-L3 disc space with associated bone marrow edema. Underlying infection/discitis cannot be excluded." He was evaluated by infectious disease and started on IV antibiotics. He underwent an L2-L3 disc biopsy in order to narrow down antibiotic coverage and his leukocytosis on initial presentation improved during his hospital course while on broad coverage. He had episodes of hyperglycemia and was followed closely by renal for fluid management in the setting of CKD and CHF. He continued to feel weak with poor endurance in therapy, found to have impairments in mobility and adls and deemed medically appropriate for discharge to ARU on 05-08-20. REVIEW OF SYSTEMS: The following is a completed review of systems and has been reviewed. Review of systems otherwise unremarkable. PAIN: Patient self reports no pain EYES: No recent vision changes EARS, NOSE, & THROAT: No throat pain, or dysphagia, or rhinorrhea CARDIOVASCULAR: Denies chest pain or palpitations PULMONARY: +shortness of breath with exertion GASTROINTESTINAL: Denies constipation/diarrhea GENITOURINARY: reports dark urine, no dysuria MUSCULOSKELETAL: generalized weakness NEUROLOGICAL:+paresthesias HEMATOLOGICAL: denies easy bruising SKIN: denies rash PSYCHIATRIC: Unremarkable All other review of systems found to be negative. PAST MEDICAL HISTORY: as per hpi PAST SURGICAL HISTORY: Cardiac cath with stent, right eye cataract surgery ALLERGIES: Please see below. MEDICATIONS: Please see below. FAMILY HISTORY: cardiac and DM SOCIAL HISTORY: occasional beer, no illicit drugs, former smoker DIET: low sodium, consistent carb, fluid restrict PHYSICAL EXAMINATION: VITAL SIGNS: Please see below. GENERAL: Pleasant and cooperative. No acute distress. obese HEENT: PERRL. Extraocular movements intact. Clear conjunctiva CARDIOVASCULAR: Regular rate and rhythm. No murmurs, rubs, or gallops LUNGS: Clear to auscultation bilaterally. No wheezes. No rhonchi ABDOMEN: Soft, nontender, nondistended. Positive bowel sounds. Normal active bowel sound. NEUROLOGICAL: Alert and oriented times three. Cranial nerves II through XII grossly intact. Sensation diminished to light touch in stocking/glove pattern. EXTREMITIES: 5\\5 strength bilateral upper extremities. 5-\\5 strength right lower extremity. 5-/5 strength in left lower extremity. +bilat LE edema SKIN: bilat calves with hyperpigmentation LABORATORY DATA: Please see below. IMAGING:Imaging documentation personally reviewed by record FUNCTIONAL STATUS: Premorbid: modified Independent with all activities of daily life as well as mobility with cane On Admission: COntact guard to standby assist for ambulation, functional transfers, grooming, toileting GOALS: Mod-I with RW community distances with Rw, stairs, bed mobility, dressi ng, bathing, toileting ASSESSMENT:69-year-old M with past medical history of CHF, CKD, PE/DVT who p resents status post L2-L3 discitis with gait impairment PLAN: 1. Rehab- PT/OT advance gait and ADLs, strengthen/stretch/maintain ROM all 4 limbs, energy conservation 2. Neuro- peripheral polyneuropathy due to poorly controlled DM, lumbar spinal stenosis and L2-L3 discitis contributing to current mobility and functional impairments 3. Cardiac- CAD with diastolic CHF, patient discharged on ASA and Plavix- c/u BP meds and will fluid restrict with daily weights, medicine consulted for assistance with overall management 4. Resp- hx of PE and DVT on couamdin, follow daily INRs, goal 2-3 -MENDEL c/u CPAP -encourgae incentive spirometry and monitor for infection 5. Renal- CKD4 with IgA nephropathy-renal consulted to assist with fluid management 6. ID- L2-L3 discitis on Cefepime and vancomycin for 6 weeks total- ID consulted, awaiting CT-guided biopsy results to narrow antibitoc coverage- will trend ESR/CRP 7. GI ppx- prilosec 8. DVT ppx- on coumadin 9. Pain- tylenol prn 10. ENdo- poorly controlled DM with hyperglycmeia- c/u insulin coverage and sliding scale 11. Dispo- TBD POST ADMISSION PHYSICIAN EVALUATION: Medical and functional status: Description of medical status, medical assessment: As above. Rehabilitation diagnosis and current and prior cold morbid medical conditions as above. Risk of complications and plans to mitigate them as above. Description of functional status current status is as above. Prior status as above. Status compared to preadmission: There are no clinically significant differences between the patient's current status and the information described on the preadmission screening document. Treatment plan anticipated: Treatment plan is as described above. Required disciplines including physical therapy, occupational therapy, others as noted above. Intensity of services: 3 hours a day, 6 days a week. Special considerations: There are no specific special or safety considerations that would likely preclude immediate implementation of an intensive rehabilitation program or subsequently influence the plan of care. ATTESTATION: Considering all the information above, it is my best judgment that this patient requires intensive rehabilitation therapy as described above and an inpatient hospital environment due to the complexity of nursing, medical, and rehabilitation needs required by the patient. Furthermore, this patient can reasonably be expected to participate in an benefit from an inpatient rehabilitation stay with an interdisciplinary team approach to the delivery of rehabilitation care under the direction and supervision of rehabilitation physician. PROGNOSIS: good ESTIMATED LENGTH OF STAY:7-10 days. PROJECTED DISCHARGE DESTINATION: Home with family support and any durable medical equipment required to increase functional safety and mobility TIME SPENT COUNSELING AND COORDINATING INITIAL CARE: Greater than 70 minutes. Vital Signs Vital Sign - Last 24 Hours 05/08/20 05/08/20 05/08/20 05/09/20 18:10 20:00 20:13 05:44 Temp 96.6 96.6 98.8 Pulse 84 75 75 72 Resp 19 20 19 B/P (MAP) 150/60 (90) 143/67 (92) 143/67 124/70 (88) Pulse Ox 92 100 97 O2 Delivery Room Air Room Air NIPPV (BIPAP/CPAP) Laboratory Data CBC/BMP Laboratory Tests 05/09/20 06:35 Labs 24H Laboratory Tests 2 05/08/20 19:32: Bedside Glucose (Misc Panel) 254H 05/09/20 04:40: Bedside Glucose (Misc Panel) 97 05/09/20 06:35: Immature Granulocyte % (Auto) 0.7, Neutrophils (%) (Auto) 73.0H, Lymphocytes (%) (Auto) 15.5L, Monocytes (%) (Auto) 6.5H, Eosinophils (%) (Auto) 3.8H, Basophils (%) (Auto) 0.5, Neutrophils # (Auto) 8.2, Lymphocytes # (Auto) 1.7, Monocytes # (Auto) 0.7, Eosinophils # (Auto) 0.4, Basophils # (Auto) 0.1, Nucleated Red Blood Cells % (auto) 0.0, Prothrombin Time 19.0H, Prothromb Time International Ratio 1.56, Anion Gap 8, Glomerular Filtration Rate 33.3L, Calcium Level 9.0, Total Bilirubin 1.0, Aspartate Amino Transf (AST/SGOT) 73H, Alanine Aminotran sferase (ALT/SGPT) 93H, Alkaline Phosphatase 224H, Total Protein 7.2, Albumin 2.9L, Albumin/Globulin Ratio 0.7 FSBS Laboratory Tests Test 05/08/20 19:32 05/09/20 04:40 Range/Units Bedside Glucose (Misc Panel) 254 97 80-115 MG/DL Home Medications Scheduled Allopurinol (Zyloprim) 300 Mg Tablet, 300 MG PO DAILY, (Reported) Amiloride HCl (Amiloride HCl) 5 Mg Tab, 10 MG PO QAM, (Reported) Amiloride HCl (Amiloride HCl) 5 Mg Tablet, 5 MG PO QHS, (Reported) Atorvastatin Calcium (Atorvastatin Calcium) 80 Mg Tablet, 80 MG PO DAILY, (Reported) Bumetanide (Bumetanide) 1 Mg Tab, 3 MG PO BID, (Reported) Calcium Carbonate/Vitamin D3 (Calcium 600-Vit D3 400 Tablet) 1 Tab Tab, 1 TAB PO DAILY, (Reported) Clopidogrel Bisulfate (Clopidogrel) 75 Mg Tablet, 75 MG PO DAILY, (Reported) Dulaglutide (Trulicity) 1.5 Mg/0.5 Ml Inj, 1.5 MG SC 1XWK, (Reported) WEDNESDAY Gabapentin (Gabapentin) 300 Mg Capsule, 300 MG PO TID, (Reported) Insulin Human Lispro (Humalog) 1 Units/0.01 Ml Inj, 1 DOSE SC ACHS, (Reported) PER SLIDING SCALE - HAS RX FOR U-200 BUT ISN'T SURE WHICH ONE HE IS SUPPOSED TO BE TAKING. Insulin Human Regular (Humulin R U-500 Kwikpen) 500 Unit/1 Ml Insuln.pen, 100 UNITS SC BID, (Reported) Isosorbide Mononitrate (Isosorbide Mononitrate ER) 60 Mg Tab.er.24h, 60 MG PO DAILY, (Reported) Magnesium Oxide (Magnesium Oxide) 500 Mg Tablet, 1,000 MG PO BID, (Reported) Metolazone (Metolazone) 2.5 Mg Tab, 2.5 MG PO 3XW, (Reported) WED, WED, FRI Metoprolol Tartrate (Metoprolol Tartrate) 25 Mg Tablet, 25 MG PO BID, (Reported) Montelukast Sodium (Montelukast Sodium) 10 Mg Tab, 10 MG PO QHS, (Reported) Multivitamins (Thera M Plus Tablet) 1 Each Tablet, 1 TAB PO DAILY, (Reported) Sumner-3/Dha/Epa/Fish Oil (Fish Oil 1,000 mg Softgel) 1 Each Capsule, 2,000 MG PO DAILY, (Reported) Omeprazole (Omeprazole) 40 Mg Cap, 40 MG PO BID, (Reported) Potassium Chloride (Klor-Con M20) 20 Meq Tabcr, 60 MEQ PO BID, (Reported) Potassium Chloride (Potassium Chloride) 20 Meq Tab.er.prt, 40 MEQ PO 2XW, (Reported) @NOON ON WED, WED, WED Potassium Chloride (Potassium Chloride) 20 Meq Tab.er.prt, 20 MEQ PO 4XWK, (Reported) @NOON ON WED, , , SAT Warfarin Sodium (Warfarin Sodium) 5 Mg Tablet, 5 MG PO 6XWK, (Reported) SUN, WED, , WED, , SAT Warfarin Sodium (Warfarin Sodium) 5 Mg Tablet, 2.5 MG PO 1XWK, (Reported) FRI Scheduled PRN Docusate Sodium (Dok) 100 Mg Tab, 100 MG PO BID PRN for CONSTIPATION, (Reported) Nitroglycerin (Nitroglycerin) 0.4 Mg Sub, 0.4 MG SL NITRO PRN for CHEST PAIN, (Reported) Allergies Coded Allergies: DANIELA Inhibitors (Verified Allergy, Intermediate, RASH, 05/03/20) spironolactone (Verified Adverse Reaction, Intermediate, gynecomastia, 05/03/20) A-FIB/CHADSVASC A-FIB History Current/History of A-Fib/PAF?: No Current PO Anticoag Therapy: Yes EDUARDO OJEDA MD May 09, 2020 09:04
[2020-05-09] MEDS: PEN NEEDLE (USE WITH HUMULIN U-500 INSULIN PEN) XX SCH ×2 (09:06→17:13)
[2020-05-09] MEDS: HUMULIN R U-500 KWIKPEN 500UNITS/ML 3ML SYRINGE (J1815 PER 5UNITS) SC SCH ×2 (09:06→17:14)
[2020-05-09] MEDS ORDERED: VANCOMYCIN HCL 750 MG, VIAL MATE ADAPTER 1 EACH in D5W 250 ML IV SCH ×2 (10:00→11:00)
[2020-05-09 13:44] VITALS: BP 138/68
[2020-05-09] MEDS: VANCOMYCIN HCL 750 MG, VIAL MATE ADAPTER 1 EACH in D5W 250 ML IV SCH ×2 (17:00→18:40)
[2020-05-09] MEDS ORDERED: WARFARIN SOD 5MG TAB PO SCH (17:00)
[2020-05-09] MEDS: WARFARIN SOD 7.5MG TAB PO SCH (17:02)
--- NOTE | 2020-05-09 18:05 | IPN ---
PROGRESS NOTE DATE: 05/09/2020 SUBJECTIVE: Patient was seen and examined at the bedside today morning in the rehabilitation unit. He was getting his physical therapy when I saw him. He is tolerating the current dose of diuretics. He denies any edema of the lower extremities. Renal function is stable close to his baseline. OBJECTIVE: Vital signs: Temperature is 98.2 degrees Fahrenheit, blood pressure 136/68, pulse is 83, respiratory rate of 22, saturating 95% on room air. Intake and output: Urine output recorded is 800 mL yesterday, 1350 mL so far today since overnight. Weight in the bed scale is 59 kg, which is not reliable, because there is 8 kg difference since yesterday. PHYSICAL EXAMINATION: GENERAL: Patient is awake, alert, oriented times three, morbidly obese, sitting up in the wheelchair. HEAD AND NECK: Extraocular muscles intact. Pupils equally round and reactive to light. Mucous membranes are moist. Neck is supple. There is no jugular venous distention (JVD). CARDIOVASCULAR: S1, S2, regular rate. Trace edema of the bilateral lower extremities. RESPIRATORY: Chest is clear to auscultation bilaterally. Bilateral equal air entry. No rales or rhonchi. ABDOMEN: Soft. Positive bowel sounds. Nontender. No organomegaly. MUSCULOSKELETAL: No clubbing or cyanosis. Pulses are 2+. CENTRAL NERVOUS SYSTEM: No focal deficit. Power is 5/5 in all extremities. LABORATORY REVIEW: CBC showed a WBC of 11.3, hemoglobin 15.8, platelets 208. BMP shows sodium 134, potassium 3.5, chloride 94, bicarbonate 32, BUN 39, creatinine is 2.1. AST 73, ALT 93, alkaline phosphatase 224. CURRENT INPATIENT MEDICATIONS: Patient's medications were all reviewed by myself. He continues to be on Bumex 3 mg by mouth twice a day, amiloride 10 mg by mouth twice a day. Intravenous (IV) antibiotic including vancomycin and ceftriaxone. No other significant change in the medications today as compared with yesterday. ASSESSMENT AND PLAN: 1. Chronic kidney disease, stage III/early stage IV. Patient's renal function is stable. Creatinine has been fluctuating close to his baseline. Okay to continue current dose of diuretics. 2, Cor pulmonale. Volume status is optimized. He will be given one dose of metolazone tomorrow morning. Continue rest of the diuretic regimen. 3. Discitis. Patient is getting IV vancomycin and ceftriaxone, and he is getting physical therapy. Rest of the management is as per infectious disease (ID) recommendations. 4. Elevated liver enzymes. I would try to cut down the dose of Tylenol that patient is receiving at this time, and if needed statin dose can also be reduced.
[2020-05-09] MEDS: cefTRIAXone SOD 2 GM in D5W MINI-BAG PLUS 50 ML IV SCH (19:48)
[2020-05-09 20:00] VITALS: BP 131/60
[2020-05-09] MEDS: SENNA 8.6 MG TAB (SENOKOT) PO SCH (20:01)
[2020-05-09] MEDS: SODIUM CHLORIDE 0.9% INJ 10 ML SYR IV PRN (20:33)
[2020-05-10] MEDS: SODIUM CHLORIDE 0.9% INJ 10 ML SYR IV SCH ×2 (04:57→17:16)
[2020-05-10 05:40] VITALS: BP 134/72
[2020-05-10 07:12] LABS: BASO # 0.1 10^3/uL (0.0-0.2); EOS # 0.3 10^3/uL (0.0-0.5); EOS % 3.1 % (0.0-3.0); HEMATOCRIT 44.2 % (42.0-52.0); HEMOGLOBIN 15.3 g/dl (13.5-17.5); LYMPH # 1.6 10^3/uL (1.5-5.0); LYMPH % 16.9 % (24.0-44.0); MEAN CORPUSCULAR HEMOGLOBIN 32.2 pg (27.0-33.0); MEAN CORPUSCULAR HGB CONC 34.6 g/dl (32.0-36.5); MEAN CORPUSCULAR VOLUME 93.1 fl (80.0-96.0); MONO # 0.6 10^3/uL (0.0-0.8); MONO % 6.9 % (0.0-5.0); NEUTROPHILS # 6.5 10^3/uL (1.5-8.5); NEUTROPHILS % 71.2 % (36.0-66.0); PLATELET COUNT, AUTOMATED 236 10^3/uL (150-450); RED BLOOD COUNT 4.75 10^6/uL (4.30-6.10); WHITE BLOOD COUNT 9.2 10^3/uL (4.0-10.0)
[2020-05-10 07:26] LABS: INR 1.71; PROTHROMBIN TIME 20.4 SECONDS (12.5-14.3)
[2020-05-10 07:36] LABS: C REACTIVE PROTEIN QUANTITATIV 4.53 MG/DL (0.00-0.30); CALCIUM LEVEL 8.8 MG/DL (8.8-10.2); CREATININE FOR GFR 2.32 MG/DL (0.70-1.30); POTASSIUM SERUM 3.5 MEQ/L (3.5-5.1)
[2020-05-10] MEDS ORDERED: metOLazone 2.5 MG TAB PO ONE (08:00)
[2020-05-10 08:04] LABS: ERYTHROCYTE SEDIMENTATION RATE 68 mm/hr (0-20)
[2020-05-10] MEDS: HumaLOG INSULIN (NovoLOG) PER UNIT SC SCH ×4 (08:11→20:41)
[2020-05-10] MEDS: HUMULIN R U-500 KWIKPEN 500UNITS/ML 3ML SYRINGE (J1815 PER 5UNITS) SC SCH ×2 (08:12→17:15)
[2020-05-10] MEDS: PEN NEEDLE (USE WITH HUMULIN U-500 INSULIN PEN) XX SCH ×2 (08:13→17:21)
[2020-05-10] MEDS: BUMETANIDE 1 MG TAB PO SCH ×2 (08:16→17:12)
[2020-05-10] MEDS: DOCUSATE SODIUM 100MG CAPSULE PO SCH ×3 (08:17→20:41)
[2020-05-10] MEDS: CLOPIDOGREL 75 MG TAB PO SCH (08:17)
[2020-05-10] MEDS: METOPROLOL TART 25 MG TABLET PO SCH ×2 (08:17→20:50)
[2020-05-10] MEDS: GABAPENTIN 300 MG CAP PO SCH ×3 (08:17→20:42)
[2020-05-10] MEDS: OMEPRAZOLE 20 MG CAP PO SCH ×2 (08:17→20:42)
[2020-05-10] MEDS: ASPIRIN 81 MG ENTERIC TAB PO SCH (08:17)
[2020-05-10] MEDS: allopurinoL 300 MG TAB PO SCH (08:17)
[2020-05-10] MEDS: OYSTER SHELL CALCIUM 500 MG TAB PO SCH (08:17)
[2020-05-10] MEDS: aMILoride 5 MG TAB PO SCH ×2 (08:17→20:41)
[2020-05-10] MEDS: POTASSIUM CHLORIDE 10 MEQ SR TABLET PO SCH ×2 (08:18→20:42)
[2020-05-10] MEDS: MULTIVITAMINS/MINERALS THERAP 1 TAB PO SCH (08:18)
[2020-05-10] MEDS: LACTOBACILLUS ACIDOPHILUS CAP (BACID) PO SCH ×3 (08:18→20:42)
[2020-05-10] MEDS: DIGOXIN 0.125 MG TAB PO SCH (08:18)
[2020-05-10] MEDS: ISOSORBIDE MON. (IMDUR) 60 MG XR TAB PO SCH (08:19)
[2020-05-10] MEDS: ATORVASTATIN 20 MG TAB PO SCH (08:19)
[2020-05-10] MEDS: REMEDY PHYTOPLEX Z-GUARD PASTE 113GM TUBE (FROM STOREROOM PRODUCT) TOP SCH ×3 (08:26→20:43)
[2020-05-10] MEDS ORDERED: POTASSIUM CHLORIDE 10 MEQ SR TABLET PO ONE (12:00)
[2020-05-10 14:00] VITALS: BP 135/70
[2020-05-10] MEDS: VANCOMYCIN HCL 750 MG, VIAL MATE ADAPTER 1 EACH in D5W 250 ML IV SCH ×2 (15:42→17:12)
[2020-05-10] MEDS: WARFARIN SOD 7.5MG TAB PO SCH (17:13)
[2020-05-10 20:00] VITALS: BP 109/57
[2020-05-10] MEDS: cefTRIAXone SOD 2 GM in D5W MINI-BAG PLUS 50 ML IV SCH (20:40)
[2020-05-10] MEDS: SENNA 8.6 MG TAB (SENOKOT) PO SCH (20:42)
--- NOTE | 2020-05-10 21:08 | IPN ---
NEPHROLOGY PROGRESS NOTE DATE: 05/10/2020 SUBJECTIVE: The patient was seen and examined at the bedside today morning in the Rehab Unit. He reports that he got the compression bandage on the bilateral lower extremities for edema. He continues to be on high dose of diuretics and despite that, he reports that he is not making much urine. The patient was given an extra dose of Metolazone 2.5 mg today morning. OBJECTIVE: VITAL SIGNS: Temperature is 96.9 degrees Fahrenheit, blood pressure 135/70, pulse is 88, respiratory rate of 18, saturating 96% on room air. INTAKE AND OUTPUT: Urine output recorded as 2 liters yesterday, 1.7 liters so far toady since overnight. Weight in the bed scale is 155.1 kg. PHYSICAL EXAMINATION: GENERAL APPEARANCE: The patient is awake, alert, oriented x3, morbidly obese, sitting up in the sofa in no apparent distress. HEAD AND NECK: Extraocular muscles intact. Pupils are equally round and reactive to light. Mucous membranes are moist. Neck is supple. Mildly elevated jugular venous distention. CARDIOVASCULAR: S1, S2, regular rate. EXTREMITIES: Trace edema of the bilateral lower extremities and he has compression bandages. RESPIRATORY: Chest is clear to auscultation bilaterally. Bilaterally currently no rales or rhonchi. ABDOMEN: Soft, positive bowel sounds, nontender, no organomegaly. MUSCULOSKELETAL: He has compression bandages on the bilateral lower extremities. No clubbing or cyanosis. 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 Power is 5/5 in all extremities. LAB REVIEW: CBC showed a WBC of 9.2, hemoglobin 15.3, platelets are 236. BMP showed a sodium of 131, potassium 3.5, chloride 93, bicarbonate 28, BUN 46, creatinine is 2.3, it was 2.1 yesterday. C-reactive protein is 4.5. CURRENT INPATIENT MEDICATIONS: The patient's medications were all reviewed by myself. He continues to be on Amiloride and Bumex, and I have started him on Metolazone 2.5 mg p.o. Wednesday, Wednesday, Wednesday. ASSESSMENT AND PLAN: 1. Chronic kidney disease stage 3 to at least stage 4 - The patient is tolerating high dose of diuretics. Renal function is stable. Creatinine is staying stable around low to mid 2's which is his baseline. Okay to continue current diuretic regimen. 2. Chronic diastolic congestive heart failure - continue current dose of Bumex 3 mg p.o. twice daily. Amiloride was increased because of persistent hypokalemia he is currently on 10 mg p.o. twice daily. And I have put him back on his home dose of Metolazone 2.5 mg p.o. Wednesday, Wednesday, Wednesday. 3. Persistent hypokalemia it was secondary to the use of high dose of loop diuretics and Metolazone three times a week. His potassium dose and Amiloride was adjusted. Potassium is within the acceptable range. He gets an extra dose of potassium on the days when he gets Metolazone dose. 4. Diskitis and low back pain he currently is on Ceftriaxone and Vancomycin. That symptom management is as per I.D. recommendations. 5. 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 daily. 6. Atrial fibrillation - heart rate is controlled with Digoxin and Metoprolol. He is currently on Warfarin which is being managed by the Medical Team.
[2020-05-11 06:00] VITALS: BP 138/72
[2020-05-11] MEDS: SODIUM CHLORIDE 0.9% INJ 10 ML SYR IV SCH ×2 (06:37→17:15)
[2020-05-11] MEDS: HumaLOG INSULIN (NovoLOG) PER UNIT SC SCH ×4 (07:35→20:59)
[2020-05-11] MEDS: PEN NEEDLE (USE WITH HUMULIN U-500 INSULIN PEN) XX SCH ×2 (07:36→17:20)
[2020-05-11] MEDS: HUMULIN R U-500 KWIKPEN 500UNITS/ML 3ML SYRINGE (J1815 PER 5UNITS) SC SCH ×2 (07:36→17:20)
[2020-05-11] MEDS: BUMETANIDE 1 MG TAB PO SCH ×2 (07:42→16:42)
[2020-05-11] MEDS: aMILoride 5 MG TAB PO SCH ×2 (07:43→20:58)
[2020-05-11] MEDS: ATORVASTATIN 20 MG TAB PO SCH (07:43)
[2020-05-11] MEDS: OMEPRAZOLE 20 MG CAP PO SCH ×2 (07:44→20:57)
[2020-05-11] MEDS: LACTOBACILLUS ACIDOPHILUS CAP (BACID) PO SCH ×3 (07:44→20:57)
[2020-05-11] MEDS: POTASSIUM CHLORIDE 10 MEQ SR TABLET PO SCH ×2 (07:44→20:58)
[2020-05-11] MEDS: METOPROLOL TART 25 MG TABLET PO SCH ×2 (07:45→20:58)
[2020-05-11] MEDS: OYSTER SHELL CALCIUM 500 MG TAB PO SCH (07:46)
[2020-05-11] MEDS: ASPIRIN 81 MG ENTERIC TAB PO SCH (07:46)
[2020-05-11] MEDS: MULTIVITAMINS/MINERALS THERAP 1 TAB PO SCH (07:46)
[2020-05-11] MEDS: allopurinoL 300 MG TAB PO SCH (07:46)
[2020-05-11] MEDS: DIGOXIN 0.125 MG TAB PO SCH (07:46)
[2020-05-11] MEDS: CLOPIDOGREL 75 MG TAB PO SCH (07:46)
[2020-05-11] MEDS: GABAPENTIN 300 MG CAP PO SCH ×3 (07:46→20:58)
[2020-05-11] MEDS: REMEDY PHYTOPLEX Z-GUARD PASTE 113GM TUBE (FROM STOREROOM PRODUCT) TOP SCH ×3 (07:47→20:59)
[2020-05-11] MEDS: ISOSORBIDE MON. (IMDUR) 60 MG XR TAB PO SCH (07:47)
[2020-05-11] MEDS: DOCUSATE SODIUM 100MG CAPSULE PO SCH ×2 (07:47→20:57)
[2020-05-11 08:01] LABS: INR 2.06; PROTHROMBIN TIME 23.7 SECONDS (12.5-14.3)
[2020-05-11 14:00] VITALS: BP 127/66
[2020-05-11 15:40] LABS: ALBUMIN 2.9 GM/DL (3.2-5.2); CALCIUM LEVEL 9.3 MG/DL (8.8-10.2); CREATININE FOR GFR 2.71 MG/DL (0.70-1.30); GLOMERULAR FILTRATION RATE 25.1 (>49); PHOSPHORUS LEVEL 3.5 MG/DL (2.5-4.9); POTASSIUM SERUM 3.7 MEQ/L (3.5-5.1)
[2020-05-11] MEDS: WARFARIN SOD 7.5MG TAB PO SCH (16:43)
[2020-05-11] MEDS: VANCOMYCIN HCL 750 MG, VIAL MATE ADAPTER 1 EACH in D5W 250 ML IV SCH (16:51)
[2020-05-11] MEDS: SODIUM CHLORIDE 0.9% INJ 10 ML SYR IV PRN (17:17)
--- NOTE | 2020-05-11 18:24 | IPN ---
PROGRESS NOTE DATE: 05/11/2020 Mr. Galindo is seen this morning on his bedside on acute rehabilitation floor. Patient is lying in the bed comfortably and denies any dyspnea, chest pain, nausea, or vomiting. He is currently undergoing rehabilitation due to deconditioning and weakness. He has started to ambulate. PHYSICAL EXAMINATION: Temperature 97.2 degrees Fahrenheit, heart rate 88 per minute, respiratory rate 20 per minute, blood pressure 127/66 mmHg, and oxygen saturation 95% on room air. Head is atraumatic. Neck supple and without jugular venous distention (JVD) or thyroid enlargement. Heart sounds regular and lungs clear to auscultation. Abdomen obese, soft, and nontender. Bowel sounds are normal. Extremities without any cyanosis or clubbing. Yesterday's labs show sodium 131, potassium 3.5, BUN 46, creatinine 2.32. Patient did not have any labs done today so far. PROBLEMS: 1. Acute kidney injury superimposed on chronic kidney disease. Slight worsening of kidney function was noticed. At present patient has no uremic symptoms. His kidney function will be rechecked, and we will consider to hold his diuretics as needed. 2. Congestive heart failure. Patient looks clinically well compensated. He has been on chronic diuretic therapy with bumetanide 3 mg twice a day and metolazone 2.5 mg on Wednesday, Wednesday, and Wednesday. Over the weekend he is not going to receive any metolazone. We will recheck his kidney function and then make further recommendations. 3. Hypokalemia. Patient continues with potassium supplement 40 mEq twice a day. Electrolytes will need to be repleted. 4. Congestive heart failure. At present, clinically patient looks quite compensated, and we will reassess his diuretics tomorrow and consider to hold metolazone as needed.
[2020-05-11 20:00] VITALS: BP 114/56
[2020-05-11] MEDS: SENNA 8.6 MG TAB (SENOKOT) PO SCH (20:57)
[2020-05-11] MEDS: cefTRIAXone SOD 2 GM in D5W MINI-BAG PLUS 50 ML IV SCH (20:59)
[2020-05-12 06:00] VITALS: BP 122/61
[2020-05-12] MEDS: SODIUM CHLORIDE 0.9% INJ 10 ML SYR IV SCH ×2 (06:05→17:05)
[2020-05-12] MEDS: PEN NEEDLE (USE WITH HUMULIN U-500 INSULIN PEN) XX SCH ×2 (08:23→17:04)
[2020-05-12] MEDS: HUMULIN R U-500 KWIKPEN 500UNITS/ML 3ML SYRINGE (J1815 PER 5UNITS) SC SCH ×2 (08:23→17:04)
[2020-05-12] MEDS: HumaLOG INSULIN (NovoLOG) PER UNIT SC SCH ×4 (08:24→21:47)
[2020-05-12] MEDS: OYSTER SHELL CALCIUM 500 MG TAB PO SCH (08:27)
[2020-05-12] MEDS: GABAPENTIN 300 MG CAP PO SCH ×3 (08:27→21:45)
[2020-05-12] MEDS: LACTOBACILLUS ACIDOPHILUS CAP (BACID) PO SCH ×3 (08:27→21:44)
[2020-05-12] MEDS: CLOPIDOGREL 75 MG TAB PO SCH (08:28)
[2020-05-12] MEDS: DIGOXIN 0.125 MG TAB PO SCH (08:28)
[2020-05-12] MEDS: ASPIRIN 81 MG ENTERIC TAB PO SCH (08:28)
[2020-05-12] MEDS: ATORVASTATIN 20 MG TAB PO SCH (08:28)
[2020-05-12] MEDS: METOPROLOL TART 25 MG TABLET PO SCH ×2 (08:29→21:46)
[2020-05-12] MEDS: allopurinoL 300 MG TAB PO SCH (08:29)
[2020-05-12] MEDS: ISOSORBIDE MON. (IMDUR) 60 MG XR TAB PO SCH (08:30)
[2020-05-12] MEDS: POTASSIUM CHLORIDE 10 MEQ SR TABLET PO SCH ×2 (08:30→21:44)
[2020-05-12] MEDS: MULTIVITAMINS/MINERALS THERAP 1 TAB PO SCH (08:30)
[2020-05-12] MEDS: OMEPRAZOLE 20 MG CAP PO SCH ×2 (08:30→21:44)
[2020-05-12] MEDS: DOCUSATE SODIUM 100MG CAPSULE PO SCH ×2 (08:31→21:00)
[2020-05-12] MEDS: aMILoride 5 MG TAB PO SCH ×2 (08:31→21:46)
[2020-05-12] MEDS: BUMETANIDE 1 MG TAB PO SCH ×2 (08:31→17:09)
[2020-05-12] MEDS: REMEDY PHYTOPLEX Z-GUARD PASTE 113GM TUBE (FROM STOREROOM PRODUCT) TOP SCH ×3 (08:31→21:00)
[2020-05-12 08:46] LABS: INR 2.21
[2020-05-12 08:50] LABS: ALBUMIN 2.9 GM/DL (3.2-5.2); CREATININE FOR GFR 2.54 MG/DL (0.70-1.30); GLOMERULAR FILTRATION RATE 27.1 (>49); PHOSPHORUS LEVEL 4.5 MG/DL (2.5-4.9); POTASSIUM SERUM 4.1 MEQ/L (3.5-5.1)
[2020-05-12] MEDS ORDERED: VANCOMYCIN HCL 1,000 MG, VIAL MATE ADAPTER 1 EACH in D5W 250 ML IV SCH ×2 (12:00→17:00)
[2020-05-12 14:00] VITALS: BP 138/80
[2020-05-12] MEDS: SODIUM CHLORIDE 0.9% INJ 10 ML SYR IV PRN (17:05)
[2020-05-12] MEDS: WARFARIN SOD 7.5MG TAB PO SCH (17:09)
[2020-05-12 20:00] VITALS: BP 142/72
[2020-05-12] MEDS: SENNA 8.6 MG TAB (SENOKOT) PO SCH (21:00)
[2020-05-12] MEDS: cefTRIAXone SOD 2 GM in D5W MINI-BAG PLUS 50 ML IV SCH (21:44)
[2020-05-13] MEDS: SODIUM CHLORIDE 0.9% INJ 10 ML SYR IV SCH ×2 (05:43→16:52)
[2020-05-13] MEDS: SODIUM CHLORIDE 0.9% INJ 10 ML SYR IV PRN (05:44)
[2020-05-13 06:00] VITALS: BP 123/58
[2020-05-13 07:53] LABS: BASO # 0.1 10^3/uL (0.0-0.2); BASO % 1.3 % (0.0-1.0); EOS # 0.4 10^3/uL (0.0-0.5); EOS % 3.5 % (0.0-3.0); HEMOGLOBIN 15.6 g/dl (13.5-17.5); LYMPH % 18.8 % (24.0-44.0); MEAN CORPUSCULAR HEMOGLOBIN 31.9 pg (27.0-33.0); MEAN CORPUSCULAR HGB CONC 33.9 g/dl (32.0-36.5); MEAN CORPUSCULAR VOLUME 94.1 fl (80.0-96.0); MONO % 9.6 % (0.0-5.0); NEUTROPHILS # 7.1 10^3/uL (1.5-8.5); NEUTROPHILS % 66.3 % (36.0-66.0); PLATELET COUNT, AUTOMATED 310 10^3/uL (150-450); RED BLOOD COUNT 4.89 10^6/uL (4.30-6.10); WHITE BLOOD COUNT 10.7 10^3/uL (4.0-10.0)
[2020-05-13 08:13] LABS: INR 2.47; PROTHROMBIN TIME 27.3 SECONDS (12.5-14.3)
[2020-05-13 08:15] LABS: C REACTIVE PROTEIN QUANTITATIV 2.29 MG/DL (0.00-0.30); CALCIUM LEVEL 9.1 MG/DL (8.8-10.2); CREATININE FOR GFR 2.45 MG/DL (0.70-1.30); GLOMERULAR FILTRATION RATE 28.2 (>49); POTASSIUM SERUM 3.8 MEQ/L (3.5-5.1)
[2020-05-13 08:20] LABS: ERYTHROCYTE SEDIMENTATION RATE 56 mm/hr (0-20)
[2020-05-13] MEDS: HumaLOG INSULIN (NovoLOG) PER UNIT SC SCH ×4 (08:51→19:53)
[2020-05-13] MEDS: HUMULIN R U-500 KWIKPEN 500UNITS/ML 3ML SYRINGE (J1815 PER 5UNITS) SC SCH ×2 (08:52→16:54)
[2020-05-13] MEDS: PEN NEEDLE (USE WITH HUMULIN U-500 INSULIN PEN) XX SCH ×2 (08:52→16:54)
[2020-05-13] MEDS: ISOSORBIDE MON. (IMDUR) 60 MG XR TAB PO SCH (08:52)
[2020-05-13] MEDS: ATORVASTATIN 20 MG TAB PO SCH (08:53)
[2020-05-13] MEDS: METOPROLOL TART 25 MG TABLET PO SCH ×2 (08:53→19:46)
[2020-05-13] MEDS: MULTIVITAMINS/MINERALS THERAP 1 TAB PO SCH (08:53)
[2020-05-13] MEDS: ASPIRIN 81 MG ENTERIC TAB PO SCH (08:53)
[2020-05-13] MEDS: OMEPRAZOLE 20 MG CAP PO SCH ×2 (08:53→19:44)
[2020-05-13] MEDS: OYSTER SHELL CALCIUM 500 MG TAB PO SCH (08:53)
[2020-05-13] MEDS: CLOPIDOGREL 75 MG TAB PO SCH (08:53)
[2020-05-13] MEDS: BUMETANIDE 1 MG TAB PO SCH ×2 (08:53→16:54)
[2020-05-13] MEDS: POTASSIUM CHLORIDE 10 MEQ SR TABLET PO SCH ×2 (08:54→19:47)
[2020-05-13] MEDS: aMILoride 5 MG TAB PO SCH ×2 (08:54→19:44)
[2020-05-13] MEDS: DIGOXIN 0.125 MG TAB PO SCH (08:54)
[2020-05-13] MEDS: allopurinoL 300 MG TAB PO SCH (08:54)
[2020-05-13] MEDS: LACTOBACILLUS ACIDOPHILUS CAP (BACID) PO SCH ×3 (08:54→19:45)
[2020-05-13] MEDS: GABAPENTIN 300 MG CAP PO SCH ×3 (08:54→19:46)
[2020-05-13] MEDS: REMEDY PHYTOPLEX Z-GUARD PASTE 113GM TUBE (FROM STOREROOM PRODUCT) TOP SCH ×3 (08:55→19:52)
[2020-05-13] MEDS: DOCUSATE SODIUM 100MG CAPSULE PO SCH ×2 (08:55→19:45)
[2020-05-13] MEDS ORDERED: metOLazone 2.5 MG TAB PO SCH (09:00)
[2020-05-13 14:00] VITALS: BP 104/59
[2020-05-13] MEDS: WARFARIN SOD 7.5MG TAB PO SCH (16:54)
--- NOTE | 2020-05-13 17:26 | IPNPDOC ---
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 He reports a fall prior to his admission but that up until now his ankle had not bothered him. REVIEW OF SYSTEMS: The following is a completed review of systems and has been reviewed. Review of systems otherwise unremarkable. PAIN: Patient self reports no pain EYES: No recent vision changes EARS, NOSE, & THROAT: No throat pain, or dysphagia, or rhinorrhea CARDIOVASCULAR: Denies chest pain or palpitations PULMONARY: +shortness of breath with exertion GASTROINTESTINAL: Denies constipation/diarrhea GENITOURINARY: reports dark urine, no dysuria MUSCULOSKELETAL: generalized weakness NEUROLOGICAL:+paresthesias HEMATOLOGICAL: denies easy bruising SKIN: denies rash PSYCHIATRIC: Unremarkable All other review of systems found to be negative. PHYSICAL EXAMINATION: VITAL SIGNS: Please see below. GENERAL: Pleasant and cooperative. No acute distress. obese HEENT: PERRL. Extraocular movements intact. Clear conjunctiva CARDIOVASCULAR: Regular rate and rhythm. No murmurs, rubs, or gallops LUNGS: Clear to auscultation bilaterally. No wheezes. No rhonchi ABDOMEN: Soft, nontender, nondistended. Positive bowel sounds. Normal active bowel sound. NEUROLOGICAL: Alert and oriented times three. Cranial nerves II through XII grossly intact. Sensation diminished to light touch in stocking/glove pattern. EXTREMITIES: 5\5 strength bilateral upper extremities. 5-\5 strength right lower extremity. 5-/5 strength in left lower extremity. +bilat LE edema +TTP right lateral malleoli, no discrete ankle swelling given baseline edema, no warmth/erythema SKIN: bilat calves with hyperpigmentation ASSESSMENT:69-year-old M with past medical history of CHF, CKD, PE/DVT who presents status post L2-L3 discitis with gait impairment PLAN: 1. Rehab- PT/OT advance gait and ADLs, strengthen/stretch/maintain ROM all 4 limbs, energy conservation 2. Neuro- peripheral polyneuropathy due to poorly controlled DM, lumbar spinal stenosis and L2-L3 discitis contributing to current mobility and functional impairments 3. Cardiac- CAD with diastolic CHF, patient discharged on ASA and Plavix- c/u BP meds and will fluid restrict with daily weights, medicine consulted for assistan ce with overall management 4. 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 Renal- CKD4 with IgA nephropathy-renal consulted to assist with fluid management, recs appreciated 6. ID- L2-L3 discitis on Ceftriaxone and vancomycin for 6 weeks total- ID consulted, awaiting CT-guided biopsy results to narrow antibiotic coverage- will trend ESR/CRP 7. GI ppx- prilosec 8. DVT ppx- on coumadin 9. Pain- right ankle pain, concern for possible fracture, Xray ordered- tylenol 1g tid, lidoderm patch, ice, c/u daniela wrap- NWB until Xray read 10. ENdo- poorly controlled DM with hyperglycmeia- c/u insulin coverage and sliding scale 11. Dispo- TBD Allergies Coded Allergies: DANIELA Inhibitors (Verified Allergy, Intermediate, RASH, 05/03/20) spironolactone (Verified Adverse Reaction, Intermediate, gynecomastia, 05/03/20) Vital Signs Vital Signs Date Time Temp Pulse Resp B/P (MAP) Pulse Ox O2 Delivery O2 Flow Rate FiO2 05/13/20 14:00 97.5 63 18 104/59 (74) 95 Room Air 05/11/20 20:30 3.0 Laboratory Data CBC/BMP Laboratory Tests 05/13/20 06:44 Labs 24H Laboratory Tests 2 05/12/20 19:49: Bedside Glucose (Misc Panel) 380H 05/13/20 06:28: Bedside Glucose (Misc Panel) 117H 05/13/20 06:44: Immature Granulocyte % (Auto) 0.5, Neutrophils (%) (Auto) 66.3H, Lymphocytes (%) (Auto) 18.8L, Monocytes (%) (Auto) 9.6H, Eosinophils (%) (Auto) 3.5H, Basophils (%) (Auto) 1.3H, Neutrophils # (Auto) 7.1, Lymphocytes # (Auto) 2.0, Monocytes # (Auto) 1.0H, Eosinophils # (Auto) 0.4, Basophils # (Auto) 0.1, Nucleated Red B lood Cells % (auto) 0.0, Erythrocyte Sedimentation Rate 56H, Prothrombin Time 27.3H, Prothromb Time International Ratio 2.47, Anion Gap 9, Glomerular Filtration Rate 28.2L, Calcium Level 9.1, C-Reactive Protein, Quantitative 2.29H 05/13/20 11:36: Bedside Glucose (Misc Panel) 323H 05/13/20 16:05: Vancomycin Level Trough 22.1H 05/13/20 16:37: Bedside Glucose (Misc Panel) 389H Current Medications Current Medications Current Medications Medications (Trade) Dose Ordered Sig/Tavia Route PRN Reason Start Time Stop Time Status Last Admin Dose Admin Acetaminophen (Tylenol Tab) 650 mg Q4HP PRN PO fever/MILD PAIN (PS 1-4) 05/08/20 11:30 05/09/20 20:34 Allopurinol (Zyloprim) 300 mg DAILY PO 05/09/20 09:00 05/13/20 08:54 Amiloride HCl (Midamor) 10 mg BID PO 05/09/20 09:00 05/13/20 08:54 Aspirin (Ecotrin) 81 mg DAILY PO 05/09/20 09:00 05/13/20 08:53 Atorvastatin Calcium (Lipitor) 80 mg DAILY PO 05/09/20 09:00 05/13/20 08:53 Bisacodyl (Dulcolax Suppository) 10 mg DAILYPRN PRN [place] CONSTIPATION 05/08/20 11:30 Bumetanide (Bumex) 3 mg BID@0900,1700 PO 05/09/20 09:00 05/13/20 16:54 Calcium Carbonate (Oscal) 500 mg DAILY PO 05/09/20 09:00 05/13/20 08:53 Ceftriaxone Sodium 2 gm/ Dextrose 50 ml @ 100 mls/hr Q24H IV 05/08/20 20:00 Cancel Ceftriaxone Sodium 2 gm/ Dextrose 50 ml @ 50 mls/hr Q24H IV 05/08/20 20:00 05/12/20 21:44 Clopidogrel Bisulfate (PLAVix) 75 mg DAILY PO 05/09/20 09:00 05/13/20 08:53 Dextrose (Dextrose 50%) 25 ml ASDIRECTED PRN IV SEE LABEL COMMENTS 05/08/20 11:30 Digoxin (Lanoxin) 0.125 mg DAILY PO 05/09/20 09:00 05/13/20 08:54 Docusate Sodium (Colace) 100 mg BID PO 05/08/20 21:00 05/11/20 20:57 Gabapentin (Neurontin) 300 mg TID PO 05/08/20 16:00 05/13/20 16:54 Glucagon (Glucagon) 1 mg ASDIRECTED PRN SC SEE LABEL COMMENTS 05/08/20 11:30 Glucose (Glucose) 16 GM ASDIRECTED PRN PO SEE LABEL COMMENTS 05/08/20 11:30 Heparin Sodium (Heparin (Flush)) 200 units ASDIRECTED PRN IV SEE LABEL COMMENTS 05/09/20 18:15 05/13/20 05:43 Heparin Sodium (Heparin (Flush)) 200 units PICC IV 05/10/20 06:00 05/13/20 16:52 Insulin Human Lispro (HumaLOG INSULIN) SEE PROTOCOL TABLE AC OR 05/08/20 12:00 05/08/20 18:38 DC Insulin Human Lispro (HumaLOG INSULIN) SEE PROTOCOL TABLE AC OR 05/09/20 07:30 05/13/20 16:53 Insulin Human Lispro (HumaLOG INSULIN) [facility] 05/[facility]/20 21:00 05/12/20 21:47 Insulin Human Regular (HumuLIN R INSULIN) 100 units BID@0745,1745 OR 05/08/20 17:45 05/08/20 19:10 DC Insulin Human Regular (Humulin R U-500 Kwikpen *High Potency*) 100 units BID@0745,1745 OR 05/09/20 07:45 05/13/20 16:54 Isosorbide Mononitrate (Imdur) 60 mg DAILY PO 05/09/20 09:00 05/13/20 08:52 Lactobacillus Acidophilus (Bacid) 1 ea TID PO 05/08/20 16:00 05/13/20 16:54 Magnesium Hydroxide (Milk Of Magnesia) 30 ml DAILYPRN PRN PO CONSTIPATION 05/08/20 11:30 Metolazone (Zaroxolyn) 2.5 mg MoWeFr@0900 PO 05/13/20 09:00 05/13/20 08:53 Metoprolol Tartrate (Lopressor) 25 mg BID PO 05/08/20 21:00 05/13/20 08:53 Multivitamins (Theragram-M) 1 tab DAILY PO 05/09/20 09:00 12/28/20 08:53 Omeprazole (PriLOSEC) 40 mg BID PO 05/08/20 21:00 05/13/20 08:53 Pen Needle (Bd Autoshield Duo PEN NEEDLE) 1 ea BID@3845,6125 XX 05/09/20 07:45 05/13/20 16:54 Potassium Chloride (Micro-K Extencaps) 40 meq BID PO 05/08/20 21:00 05/13/20 08:54 Senna (Senokot) 1 tab QHS PO 05/08/20 21:00 05/11/20 20:57 Sodium Chloride (Saline Lock Flush) 10 ml ASDIRECTED PRN IV SEE LABEL COMMENTS 05/09/20 18:15 05/13/20 05:44 Sodium Chloride (Saline Lock Flush) 10 ml PICC IV 05/10/20 06:00 05/13/20 16:52 Vancomycin HCl 750 mg/IV Miscellaneous Supplies 15 ml @ 15 mls/hr Q24H IV 05/08/20 11:30 05/08/20 12:37 DC Vancomycin HCl 750 mg/IV Miscellaneous Supplies 1 each/ Dextrose 275 ml @ 275 mls/hr Q24H IV 05/09/20 10:00 05/09/20 09:31 DC Vancomycin HCl 750 mg/IV Miscellaneous Supplies 1 each/ Dextrose 275 ml @ 275 mls/hr Q24H IV 05/09/20 11:00 05/09/20 09:31 DC Vancomycin HCl 750 mg/IV Miscellaneous Supplies 1 each/ Dextrose 275 ml @ 275 mls/hr Q24H IV 05/09/20 16:00 05/11/20 18:00 DC 05/11/20 16:51 Vancomycin HCl 750 mg/IV Miscellaneous Supplies 1 each/ Dextrose 275 ml @ 275 mls/hr Q24H IV 05/09/20 17:00 05/11/20 15:44 DC 05/10/20 17:12 Vancomycin HCl 1000 mg/IV Miscellaneous Supplies 1 each/ Dextrose 270 ml @ 270 mls/hr Q24H IV 05/12/20 12:00 05/12/20 13:05 DC Vancomycin HCl 1000 mg/IV Miscellaneous Supplies 1 each/ Dextrose 270 ml @ 270 mls/hr Q24H IV 05/12/20 17:00 12/28/20 16:47 DC 05/12/20 16:56 Vancomycin HCl 1000 mg/IV Miscellaneous Supplies 1 each/ Dextrose 270 ml @ 270 mls/hr Q24H IV 05/13/20 22:00 Warfarin Sodium (Coumadin) 5 mg DAILY@17 PO 05/09/20 17:00 05/09/20 09:06 DC Warfarin Sodium (Coumadin) 7.5 mg DAILY@17 PO 05/09/20 17:00 05/13/20 16:54 EDUARDO OJEDA MD May 13, 2020 17:26
[2020-05-13] MEDS ORDERED: ACETAMINOPHEN 500 MG TAB PO SCH (18:45)
[2020-05-13] MEDS: cefTRIAXone SOD 2 GM in D5W MINI-BAG PLUS 50 ML IV SCH (19:43)
[2020-05-13] MEDS: SENNA 8.6 MG TAB (SENOKOT) PO SCH (19:45)
[2020-05-13] MEDS: LIDOCAINE 5% (LIDODERM) PATCH TD SCH (19:47)
--- NOTE | 2020-05-13 19:48 | REP ---
INDICATION: right COMPARISON: None. TECHNIQUE: AP, lateral, bilateral oblique views. FINDINGS: Soft tissue swelling appreciated. No obvious acute fracture or dislocation. Joint spaces and ankle mortise are intact. Evidence for peripheral vascular disease noted. IMPRESSION: Swelling. No acute fracture or dislocation. <Electronically signed by Sachin Gabriel > 05/13/201943
[2020-05-13] MEDS: ACETAMINOPHEN 500 MG TAB PO SCH (19:49)
[2020-05-13 20:00] VITALS: BP 120/58
[2020-05-13] MEDS: **NOTE PATIENT COMMENT** MISC XX SCH (21:00)
[2020-05-13] MEDS: VANCOMYCIN HCL 1,000 MG, VIAL MATE ADAPTER 1 EACH in D5W 250 ML IV SCH (22:05)
[2020-05-14 05:00] VITALS: BP 125/78
[2020-05-14] MEDS: SODIUM CHLORIDE 0.9% INJ 10 ML SYR IV SCH ×2 (06:38→17:13)
[2020-05-14 07:22] LABS: INR 2.78
[2020-05-14] MEDS: PEN NEEDLE (USE WITH HUMULIN U-500 INSULIN PEN) XX SCH ×2 (07:34→17:13)
[2020-05-14] MEDS: CLOPIDOGREL 75 MG TAB PO SCH (07:35)
[2020-05-14] MEDS: aMILoride 5 MG TAB PO SCH ×2 (07:35→21:18)
[2020-05-14] MEDS: OMEPRAZOLE 20 MG CAP PO SCH ×2 (07:36→21:18)
[2020-05-14] MEDS: ISOSORBIDE MON. (IMDUR) 60 MG XR TAB PO SCH (07:36)
[2020-05-14] MEDS: allopurinoL 300 MG TAB PO SCH (07:36)
[2020-05-14] MEDS: MULTIVITAMINS/MINERALS THERAP 1 TAB PO SCH (07:36)
[2020-05-14] MEDS: BUMETANIDE 1 MG TAB PO SCH ×2 (07:36→17:14)
[2020-05-14] MEDS: ACETAMINOPHEN 500 MG TAB PO SCH ×3 (07:36→21:00)
[2020-05-14] MEDS: ATORVASTATIN 20 MG TAB PO SCH (07:36)
[2020-05-14] MEDS: OYSTER SHELL CALCIUM 500 MG TAB PO SCH (07:37)
[2020-05-14] MEDS: METOPROLOL TART 25 MG TABLET PO SCH ×2 (07:37→21:21)
[2020-05-14] MEDS: DIGOXIN 0.125 MG TAB PO SCH (07:37)
[2020-05-14] MEDS: GABAPENTIN 300 MG CAP PO SCH ×3 (07:37→21:18)
[2020-05-14] MEDS: POTASSIUM CHLORIDE 10 MEQ SR TABLET PO SCH ×2 (07:38→21:18)
[2020-05-14] MEDS: ASPIRIN 81 MG ENTERIC TAB PO SCH (07:39)
[2020-05-14] MEDS: REMEDY PHYTOPLEX Z-GUARD PASTE 113GM TUBE (FROM STOREROOM PRODUCT) TOP SCH ×3 (07:39→21:20)
[2020-05-14] MEDS: DOCUSATE SODIUM 100MG CAPSULE PO SCH ×2 (07:39→21:18)
[2020-05-14] MEDS: LACTOBACILLUS ACIDOPHILUS CAP (BACID) PO SCH ×3 (07:39→21:18)
[2020-05-14] MEDS: HumaLOG INSULIN (NovoLOG) PER UNIT SC SCH ×4 (07:40→21:17)
[2020-05-14] MEDS ORDERED: HUMULIN R U-500 KWIKPEN 500UNITS/ML 3ML SYRINGE (J1815 PER 5UNITS) SC SCH (07:45)
--- NOTE | 2020-05-14 12:18 | IPN ---
PROGRESS NOTE DATE: 05/14/2020 Mr. Galindo is seen this morning on his bedside. He has complained of pain in his right ankle. I came to see him yesterday, but he was not available in his room. In any event, he denies any dyspnea or chest pain and reports good progress with his rehabilitation. PHYSICAL EXAMINATION: Temperature 98.2 degrees Fahrenheit, heart rate 78 per minute, respiratory rate 18 per minute, blood pressure 125/75 mmHg, and oxygen saturation 95%. Head is atraumatic. Neck supple and without jugular venous distention (JVD) or thyroid enlargement. Heart sounds are regular and lungs clear to auscultation. Abdomen obese, soft, and nontender, and bowel sounds are present. Extremities without any cyanosis or clubbing. He has a pain patch applied to his right ankle. Neurologically, he is awake, alert, and oriented times three. Labs from May 13 revealed a sodium level 133, potassium 3.8, CO2 of 30, BUN 58, and creatinine 2.45. C-reactive protein 2.29. His uric acid level was checked on May 11 and was 8.0. WBC 10.7, hemoglobin 15.6, and hematocrit 46.0. PROBLEMS: 1. Acute kidney injury superimposed on chronic kidney disease. Slight variation in kidney function, but overall it has been stable. I feel that the variations are related to combination of diuretics. I do not feel that patient needs metolazone at this point, and I am going to stop it in view of possible over-diuresis and gout. 2. Hyponatremia. Mild hyponatremia is stable and most likely related to diuretics. No specific intervention is indicated. 3. Gout. Patient has pain in his right ankle, which is probably caused by gout. His uric acid level was 8.0 on May 11 despite allopurinol 300 mg daily. I am going to stop his allopurinol and switch to Uloric 80 mg daily. I will also give him a dose of colchicine 1.2 mg today and 0.6 mg daily for next few days. 4. Congestive heart failure. Patient is on multiple diuretics, including bumetanide, amiloride, and metolazone. I am stopping his metolazone at this point due to over-diuresis and gout. I feel that just bumetanide and amiloride will be enough for now.
[2020-05-14] MEDS ORDERED: COLCHICINE 0.6 MG TABLET PO ONE (13:00)
[2020-05-14 14:00] VITALS: BP 140/74
[2020-05-14] MEDS ORDERED: HumaLOG INSULIN (NovoLOG) PER UNIT SC ONE (14:00)
--- NOTE | 2020-05-14 16:11 | IPNPDOC ---
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 REVIEW OF SYSTEMS: The following is a completed review of systems and has been reviewed. Review of systems otherwise unremarkable. PAIN: Patient self reports mild right ankle pain EYES: No recent vision changes EARS, NOSE, & THROAT: No throat pain, or dysphagia, or rhinorrhea CARDIOVASCULAR: Denies chest pain or palpitations PULMONARY: +shortness of breath with exertion GASTROINTESTINAL: Denies constipation/diarrhea GENITOURINARY: reports dark urine, no dysuria MUSCULOSKELETAL: generalized weakness NEUROLOGICAL:+paresthesias HEMATOLOGICAL: denies easy bruising SKIN: denies rash PSYCHIATRIC: Unremarkable All other review of systems found to be negative. PHYSICAL EXAMINATION: VITAL SIGNS: Please see below. GENERAL: Pleasant and cooperative. No acute distress. obese HEENT: PERRL. Extraocular movements intact. Clear conjunctiva CARDIOVASCULAR: Regular rate and rhythm. No murmurs, rubs, or gallops LUNGS: Clear to auscultation bilaterally. No wheezes. No rhonchi ABDOMEN: Soft, nontender, nondistended. Positive bowel sounds. Normal active bowel sound. NEUROLOGICAL: Alert and oriented times three. Cranial nerves II through XII grossly intact. Sensation diminished to light touch in stocking/glove pattern. EXTREMITIES: 5\5 strength bilateral upper extremities. 5-\5 strength right lower extremity. 5-/5 strength in left lower extremity. +bilat LE edema +TTP right lateral malleoli, no discrete ankle swelling given baseline edema, no warmth/erythema (-) TTP right base of 5th metatarsal SKIN: bilat calves with hyperpigmentation ASSESSMENT:69-year-old M with past medical history of CHF, CKD, PE/DVT who presents status post L2-L3 discitis with gait impairment PLAN: 1. Rehab- PT/OT advance gait and ADLs, strengthen/stretch/maintain ROM all 4 limbs, energy conservation 2. Neuro- peripheral polyneuropathy due to poorly controlled DM, lumbar spinal stenosis and L2-L3 discitis contributing to current mobility and functional impairments 3. Cardiac- CAD with diastolic CHF, patient discharged on ASA and Plavix- c/u BP meds and will fluid restrict with daily weights, medicine consulted for assistance with overall management 4. 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 Renal- CKD4 with IgA nephropathy-renal consulted to assist with fluid ma tito, recs appreciated 6. ID- L2-L3 discitis on Ceftriaxone and vancomycin for 6 weeks total- ID consulted, awaiting CT-guided biopsy results to narrow antibiotic coverage- will trend ESR/CRP 7. GI ppx- prilosec 8. DVT ppx- on coumadin 9. Pain- right ankle pain, concern for possible fracture, Xray ordered and negative for ankle fracture, c/u tylenol 1g tid, lidoderm patch, ice, c/u daniela wrap- 10. ENdo- poorly controlled DM with hyperglycmeia- patient reporting he tends to run in the 400s, 500s at home c/u insulin coverage- increasing long acting, c/u and sliding scale 11. Dispo- 05-16-20 to home with infusion Allergies Coded Allergies: DANIELA Inhibitors (Verified Allergy, Intermediate, RASH, 05/03/20) spironolactone (Verified Adverse Reaction, Intermediate, gynecomastia, 05/03/20) Vital Signs Vital Signs Date Time Temp Pulse Resp B/P (MAP) Pulse Ox O2 Delivery O2 Flow Rate FiO2 05/14/20 14:00 97.3 78 18 140/74 (96) 98 Room Air 05/11/20 20:30 3.0 Laboratory Data Labs 24H Laboratory Tests 2 05/13/20 16:37: Bedside Glucose (Misc Panel) 389H 05/13/20 19:43: Bedside Glucose (Misc Panel) 459H 05/14/20 04:30: Bedside Glucose (Misc Panel) 414H 05/14/20 06:45: Prothrombin Time 30.0H, Prothromb Time International Ratio 2.78 05/14/20 11:51: Bedside Glucose (Misc Panel) 532*H 05/14/20 13:32: Bedside Glucose (Misc Panel) 573*H 05/14/20 14:43: Bedside Glucose (Misc Panel) 489H Microbiology Microbiology 05/14/20 Respiratory Virus Panel (PCR) (GUILLERMO) - Final, Complete Current Medications Current Medications Current Medications Medications (Trade) Dose Ordered Sig/Tavia Route PRN Reason Start Time Stop Time Status Last Admin Dose Admin Acetaminophen (Tylenol Tab) 650 mg Q4HP PRN PO fever/MILD PAIN (PS 1-4) 05/08/20 11:30 05/13/20 18:36 DC 05/09/20 20:34 Acetaminophen (Tylenol Tab) 1,000 mg TID PO 05/13/20 18:45 05/13/20 18:51 DC Acetaminophen (Tylenol Tab) 1,000 mg TID PO 05/13/20 21:00 05/14/20 07:36 Allopurinol (Zyloprim) 300 mg DAILY PO 05/09/20 09:00 05/14/20 11:34 DC 05/14/20 07:36 Amiloride HCl (Midamor) 10 mg BID PO 05/09/20 09:00 05/14/20 07:35 Aspirin (Ecotrin) 81 mg DAILY PO 05/09/20 09:00 05/14/20 07:39 Atorvastatin Calcium (Lipitor) 80 mg DAILY PO 05/09/20 09:00 05/14/20 07:36 Bisacodyl (Dulcolax Suppository) 10 mg DAILYPRN PRN [place] CONSTIPATION 05/08/20 11:30 Bumetanide (Bumex) 3 mg BID@0900,1700 PO 05/09/20 09:00 05/14/20 07:36 Calcium Carbonate (Oscal) 500 mg DAILY PO 05/09/20 09:00 05/14/20 07:37 Ceftriaxone Sodium 2 gm/ Dextrose 50 ml @ 100 mls/hr Q24H IV 05/08/20 20:00 Cancel Ceftriaxone Sodium 2 gm/ Dextrose 50 ml @ 50 mls/hr Q24H IV 05/08/20 20:00 05/13/20 19:43 Clopidogrel Bisulfate (PLAVix) 75 mg DAILY PO 05/09/20 09:00 05/14/20 07:35 Colchicine (Colcrys) 0.6 mg DAILY PO 05/15/20 09:00 Dextrose (Dextrose 50%) 25 ml ASDIRECTED PRN IV SEE LABEL COMMENTS 05/08/20 11:30 Digoxin (Lanoxin) 0.125 mg DAILY PO 05/09/20 09:00 05/14/20 07:37 Docusate Sodium (Colace) 100 mg BID PO 05/08/20 21:00 05/13/20 19:45 Febuxostat (Uloric) 80 mg DAILY PO 05/15/20 09:00 Gabapentin (Neurontin) 300 mg TID PO 05/08/20 16:00 05/14/20 07:37 Glucagon (Glucagon) 1 mg ASDIRECTED PRN SC SEE LABEL COMMENTS 05/08/20 11:30 Glucose (Glucose) 16 GM ASDIRECTED PRN PO SEE LABEL COMMENTS 05/08/20 11:30 Heparin Sodium (Heparin (Flush)) 200 units ASDIRECTED PRN IV SEE LABEL COMMENTS 05/09/20 18:15 05/13/20 05:43 Heparin Sodium (Heparin (Flush)) 200 units PICC IV 05/10/20 06:00 05/14/20 06:38 Insulin Human Lispro (HumaLOG INSULIN) SEE PROTOCOL TABLE AC ID 05/08/20 12:00 05/08/20 18:38 DC Insulin Human Lispro (HumaLOG INSULIN) SEE PROTOCOL TABLE AC ID 05/09/20 07:30 05/14/20 12:04 Insulin Human Lispro (H[facility]LOG INSULIN) [facility] 21:00 05/13/20 19:53 Insulin Human Regular (HumuLIN R INSULIN) 100 units BID@0745,1745 ID 05/08/20 17:45 05/08/20 19:10 DC Insulin Human Regular (Humulin R U-500 Kwikpen *High Potency*) 100 units BID@0745,174[facility] 05/09/20 07:45 05/13/20 17:26 DC 05/13/20 16:54 Insulin Human Regular (Humulin R U-500 Kwikpen *High Potency*) 105 units BID@0745,174[facility] [place] 05/14/20 07:45 05/14/20 13:42 DC 05/14/20 07:35 Insulin Human Regular (Humulin R U-500 Kwikpen *High Potency*) 110 units BID@0745,1745 ID 05/14/20 17:45 Isosorbide Mononitrate (Imdur) 60 mg DAILY PO 05/09/20 09:00 05/14/20 07:36 Lactobacillus Acidophilus (Bacid) 1 ea TID PO 05/08/20 16:00 05/14/20 07:39 Lidocaine (Lidoderm Patch) 1 patch QHS TD 05/13/20 21:00 05/13/20 19:47 Magnesium Hydroxide (Milk Of Magnesia) 30 ml DAILYPRN PRN PO CONSTIPATION 05/08/20 11:30 Metolazone (Zaroxolyn) 2.5 mg MoWeFr@0900 PO 05/13/20 09:00 05/14/20 11:34 DC 05/13/20 08:53 Metoprolol Tartrate (Lopressor) 25 mg BID PO 05/08/20 21:00 05/14/20 07:37 Multivitamins (Theragram-M) 1 tab DAILY PO 05/09/20 09:00 05/14/20 07:36 Non-Formulary Medication ( See Comment Field Below ) REMOVE LIDODERM PATCH DAILY@21 XX 05/13/20 21:00 Omeprazole (PriLOSEC) 40 mg BID PO 05/08/20 21:00 05/14/20 07:36 Pen Needle (Bd Autoshield Duo PEN NEEDLE) 1 ea BID@0745,1745 XX 05/09/20 07:45 05/14/20 07:34 Potassium Chloride (Micro-K Extencaps) 40 meq BID PO 05/08/20 21:00 05/14/20 07:38 Senna (Senokot) 1 tab QHS PO 05/08/20 21:00 05/13/20 19:45 Sodium Chloride (Saline Lock Flush) 10 ml ASDIRECTED PRN IV SEE LABEL COMMENTS 05/09/20 18:15 05/13/20 05:44 Sodium Chloride (Saline Lock Flush) 10 ml PICC IV 05/10/20 06:00 05/14/20 06:38 Vancomycin HCl 750 mg/IV Miscellaneous Supplies 15 ml @ 15 mls/hr Q24H IV 05/08/20 11:30 05/08/20 12:37 DC Vancomycin HCl 750 mg/IV Miscellaneous Supplies 1 each/ Dextrose 275 ml @ 275 mls/hr Q24H IV 05/09/20 10:00 05/09/20 09:31 DC Vancomycin HCl 750 mg/IV Miscellaneous Supplies 1 each/ Dextrose 275 ml @ 275 mls/hr Q24H IV 05/09/20 11:00 05/09/20 09:31 DC Vancomycin HCl 750 mg/IV Miscellaneous Supplies 1 each/ Dextrose 275 ml @ 275 mls/hr Q24H IV 05/09/20 16:00 05/11/20 18:00 DC 05/11/20 16:51 Vancomycin HCl 750 mg/IV Miscellaneous Supplies 1 each/ Dextrose 275 ml @ 275 mls/hr Q24H IV 05/09/20 17:00 05/11/20 15:44 DC 05/10/20 17:12 Vancomycin HCl 1000 mg/IV Miscellaneous Supplies 1 each/ Dextrose 270 ml @ 270 mls/hr Q24H IV 05/12/20 12:00 05/12/20 13:05 DC Vancomycin HCl 1000 mg/IV Miscellaneous Supplies 1 each/ Dextrose 270 ml @ 270 mls/hr Q24H IV 05/12/20 17:00 05/13/20 16:47 DC 05/12/20 16:56 Vancomycin HCl 1000 mg/IV Miscellaneous Supplies 1 each/ Dextrose 270 ml @ 270 mls/hr Q24H IV 05/13/20 22:00 05/13/20 22:05 Warfarin Sodium (Coumadin) 5 mg DAILY@17 PO 05/09/20 17:00 05/09/20 09:06 DC Warfarin Sodium (Coumadin) 7.5 mg DAILY@17 PO 05/09/20 17:00 05/13/20 16:54 EDUARDO OJEDA MD May 14, 2020 16:11
[2020-05-14] MEDS: HUMULIN R U-500 KWIKPEN 500UNITS/ML 3ML SYRINGE (J1815 PER 5UNITS) SC SCH (17:13)
[2020-05-14] MEDS: WARFARIN SOD 7.5MG TAB PO SCH (17:15)
[2020-05-14 20:00] VITALS: BP 131/63
[2020-05-14] MEDS: **NOTE PATIENT COMMENT** MISC XX SCH (21:00)
[2020-05-14] MEDS: cefTRIAXone SOD 2 GM in D5W MINI-BAG PLUS 50 ML IV SCH (21:15)
[2020-05-14] MEDS: SENNA 8.6 MG TAB (SENOKOT) PO SCH (21:18)
[2020-05-14] MEDS: LIDOCAINE 5% (LIDODERM) PATCH TD SCH (21:20)
[2020-05-14] MEDS: VANCOMYCIN HCL 1,000 MG, VIAL MATE ADAPTER 1 EACH in D5W 250 ML IV SCH (22:13)
[2020-05-15] MEDS: SODIUM CHLORIDE 0.9% INJ 10 ML SYR IV SCH ×2 (06:28→17:07)
[2020-05-15 06:45] VITALS: BP 137/77
[2020-05-15] MEDS ORDERED: HumaLOG INSULIN (NovoLOG) PER UNIT SC ONE ×3 (06:45→21:15)
[2020-05-15 06:52] LABS: BASO # 0.1 10^3/uL (0.0-0.2); BASO % 1.9 % (0.0-1.0); EOS # 0.3 10^3/uL (0.0-0.5); EOS % 3.7 % (0.0-3.0); HEMOGLOBIN 14.9 g/dl (13.5-17.5); LYMPH # 1.4 10^3/uL (1.5-5.0); LYMPH % 19.7 % (24.0-44.0); MEAN CORPUSCULAR HEMOGLOBIN 31.9 pg (27.0-33.0); MEAN CORPUSCULAR HGB CONC 33.9 g/dl (32.0-36.5); MEAN CORPUSCULAR VOLUME 94.2 fl (80.0-96.0); MONO # 0.6 10^3/uL (0.0-0.8); NEUTROPHILS # 4.6 10^3/uL (1.5-8.5); NEUTROPHILS % 65.4 % (36.0-66.0); PLATELET COUNT, AUTOMATED 272 10^3/uL (150-450); RED BLOOD COUNT 4.67 10^6/uL (4.30-6.10)
[2020-05-15 07:14] LABS: INR 2.93; PROTHROMBIN TIME 31.2 SECONDS (12.5-14.3)
[2020-05-15] MEDS: HUMULIN R U-500 KWIKPEN 500UNITS/ML 3ML SYRINGE (J1815 PER 5UNITS) SC SCH ×2 (07:45→17:06)
[2020-05-15] MEDS: PEN NEEDLE (USE WITH HUMULIN U-500 INSULIN PEN) XX SCH ×2 (07:45→17:06)
[2020-05-15] MEDS: HumaLOG INSULIN (NovoLOG) PER UNIT SC SCH ×4 (07:49→21:00)
[2020-05-15] MEDS: OMEPRAZOLE 20 MG CAP PO SCH ×2 (07:50→22:08)
[2020-05-15] MEDS: ISOSORBIDE MON. (IMDUR) 60 MG XR TAB PO SCH (07:50)
[2020-05-15] MEDS: FEBUXOSTAT 40 MG TABLET (ULORIC) PO SCH (07:51)
[2020-05-15] MEDS: ASPIRIN 81 MG ENTERIC TAB PO SCH (07:51)
[2020-05-15] MEDS: aMILoride 5 MG TAB PO SCH ×2 (07:51→22:08)
[2020-05-15] MEDS: MULTIVITAMINS/MINERALS THERAP 1 TAB PO SCH (07:51)
[2020-05-15] MEDS: CLOPIDOGREL 75 MG TAB PO SCH (07:51)
[2020-05-15] MEDS: BUMETANIDE 1 MG TAB PO SCH ×2 (07:52→17:08)
[2020-05-15] MEDS: GABAPENTIN 300 MG CAP PO SCH ×3 (07:53→22:09)
[2020-05-15] MEDS: ACETAMINOPHEN 500 MG TAB PO SCH ×3 (07:53→22:08)
[2020-05-15] MEDS: DIGOXIN 0.125 MG TAB PO SCH (07:53)
[2020-05-15] MEDS: ATORVASTATIN 20 MG TAB PO SCH (07:54)
[2020-05-15] MEDS: POTASSIUM CHLORIDE 10 MEQ SR TABLET PO SCH ×2 (07:54→22:09)
[2020-05-15] MEDS: LACTOBACILLUS ACIDOPHILUS CAP (BACID) PO SCH ×3 (07:55→22:09)
[2020-05-15] MEDS: METOPROLOL TART 25 MG TABLET PO SCH ×2 (07:55→22:11)
[2020-05-15] MEDS: REMEDY PHYTOPLEX Z-GUARD PASTE 113GM TUBE (FROM STOREROOM PRODUCT) TOP SCH ×3 (07:59→21:00)
[2020-05-15] MEDS: DOCUSATE SODIUM 100MG CAPSULE PO SCH ×2 (07:59→22:08)
[2020-05-15] MEDS: OYSTER SHELL CALCIUM 500 MG TAB PO SCH (08:06)
[2020-05-15] MEDS: COLCHICINE 0.6 MG TABLET PO SCH (08:06)
[2020-05-15 08:32] LABS: CALCIUM LEVEL 8.7 MG/DL (8.8-10.2); CREATININE FOR GFR 2.58 MG/DL (0.70-1.30); GLOMERULAR FILTRATION RATE 26.6 (>49); POTASSIUM SERUM 3.7 MEQ/L (3.5-5.1)
--- NOTE | 2020-05-15 08:36 | IPNPDOC ---
PM&R Progress Note DATE OF SERVICE: May 15, 2020 [employer] Progress Note Subjective; Patient reporting his ankle pain is better today since receiving colchicine and understands his discharge home tomorrow might be delayed due to his high blood sugars. REVIEW OF SYSTEMS: The following is a completed review of systems and has been reviewed. Review of systems otherwise unremarkable. PAIN: Patient self reports mild right ankle pain EYES: No recent vision changes EARS, NOSE, & THROAT: No throat pain, or dysphagia, or rhinorrhea CARDIOVASCULAR: Denies chest pain or palpitations PULMONARY: +shortness of breath with exertion GASTROINTESTINAL: Denies constipation/diarrhea GENITOURINARY: reports dark urine, no dysuria MUSCULOSKELETAL: generalized weakness NEUROLOGICAL:+paresthesias HEMATOLOGICAL: denies easy bruising SKIN: denies rash PSYCHIATRIC: Unremarkable All other review of systems found to be negative. PHYSICAL EXAMINATION: VITAL SIGNS: Please see below. GENERAL: Pleasant and cooperative. No acute distress. obese HEENT: PERRL. Extraocular movements intact. Clear conjunctiva CARDIOVASCULAR: Regular rate and rhythm. No murmurs, rubs, or gallops LUNGS: Clear to auscultation bilaterally. No wheezes. No rhonchi ABDOMEN: Soft, nontender, nondistended. Positive bowel sounds. Normal active bowel sound. NEUROLOGICAL: Alert and oriented times three. Cranial nerves II through XII grossly intact. Sensation diminished to light touch in stocking/glove pattern. EXTREMITIES: 5\5 strength bilateral upper extremities. 5-\5 strength right lower extremity. 5-/5 strength in left lower extremity. +bilat LE edema +TTP right lateral malleoli, no discrete ankle swelling given baseline edema, +warmth of right ankle (-) TTP right base of 5th metatarsal SKIN: bilat calves with hyperpigmentation ASSESSMENT:69-year-old M with past medical history of CHF, CKD, PE/DVT who presents status post L2-L3 discitis with gait impairment PLAN: 1. Rehab- PT/OT advance gait and ADLs, strengthen/stretch/maintain ROM all 4 limbs, energy conservation- room privileges 2. Neuro- peripheral polyneuropathy due to poorly controlled DM, lumbar spinal stenosis and L2-L3 discitis contributing to current mobility and functional impairments 3. Cardiac- CAD with diastolic CHF, patient discharged on ASA and Plavix- c/u BP meds and will fluid restrict with daily weights, medicine consulted for assistance with overall management 4. 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 Renal- CKD4 with IgA nephropathy-renal consulted to assist with fluid management, recs appreciated 6. ID- L2-L3 discitis on Ceftriaxone and vancomycin for 6 weeks total- ID consulted, CRP elevated today likely due to gout flare-up 7. GI ppx- prilosec 8. DVT ppx- on coumadin 9. Pain- right ankle pain, concern for possible fracture, Xray ordered and negative for ankle fracture, c/u tylenol 1g tid, lidoderm patch, ice, c/u daniela wrap- -started on colchicine and uloric for suspected gout per renal - recs appreciated 10. ENdo- poorly controlled DM with hyperglycemia- patient reporting he tends to run in the 400s, 500s at home c/u insulin coverage- increasing long acting, c/u and sliding scale, receiving additional doses of lispro and gentle IVF today for FS in the 400-500s over the last 24h likely due to gout flare-up- patient's appointment with Dr. Aparicio moved up to May 20 11. Dispo- 05-16-20 to home with infusion Allergies Coded Allergies: DANIELA Inhibitors (Verified Allergy, Intermediate, RASH, 05/03/20) spironolactone (Verified Adverse Reaction, Intermediate, gynecomastia, 05/03/20) Vital Signs Vital Signs Date Time Temp Pulse Resp B/P (MAP) Pulse Ox O2 Delivery O2 Flow Rate FiO2 05/15/20 07:55 77 137/77 05/15/20 06:45 96.9 18 98 Room Air 05/11/20 20:30 3.0 Laboratory Data CBC/BMP Laboratory Tests 05/15/20 06:43 Labs 24H Laboratory Tests 2 05/14/20 11:51: Bedside Glucose (Misc Panel) 532*H 05/14/20 13:32: Bedside Glucose (Misc Panel) 573*H 05/14/20 14:43: Bedside Glucose (Misc Panel) 489H 05/14/20 16:41: Bedside Glucose (Misc Panel) 457H 05/14/20 19:27: Bedside Glucose (Misc Panel) 472H 05/14/20 21:14: Vancomycin Level Trough 18.7 05/15/20 06:08: Bedside Glucose (Misc Panel) 520*H 05/15/20 06:43: Immature Granulocyte % (Auto) 0.3, Neutrophils (%) (Auto) 65.4, Lymphocytes (%) (Auto) 19.7L, Monocytes (%) (Auto) 9.0H, Eosinophils (%) (Auto) 3.7H, Basophils (%) (Auto) 1.9H, Neutrophils # (Auto) 4.6, Lymphocytes # (Auto) 1.4L, Monocytes # (Auto) 0.6, Eosinophils # (Auto) 0.3, Basophils # (Auto) 0.1, Nucleated Red Blood Cells % (auto) 0.0, Prothrombin Time 31.2H, Prothromb Time International Ratio 2.93, Bedside Glucose Confirm (Misc) 489*H Microbiology Microbiology 05/14/20 Respiratory Virus Panel (PCR) (GUILLERMO) - Final, Complete Current Medications Current Medications Current Medications Medications (Trade) Dose Ordered Sig/Tavia Route PRN Reason Start Time Stop Time Status Last Admin Dose Admin Acetaminophen (Tylenol Tab) 650 mg Q4HP PRN PO fever/MILD PAIN (PS 1-4) 05/08/20 11:30 05/13/20 18:36 DC 05/09/20 20:34 Acetaminophen (Tylenol Tab) 1,000 mg TID PO 05/13/20 18:45 05/13/20 18:51 DC Acetaminophen (Tylenol Tab) 1,000 mg TID PO 05/13/20 21:00 05/15/20 07:53 Allopurinol (Zyloprim) 300 mg DAILY PO 05/09/20 09:00 05/14/20 11:34 DC 05/14/20 07:36 Amiloride HCl (Midamor) 10 mg BID PO 05/09/20 09:00 05/15/20 07:51 Aspirin (Ecotrin) 81 mg DAILY PO 05/09/20 09:00 05/15/20 07:51 Atorvastatin Calcium (Lipitor) 80 mg DAILY PO 05/09/20 09:00 05/15/20 07:54 Bisacodyl (Dulcolax Suppository) 10 mg DAILYPRN PRN VT CONSTIPATION 05/08/20 11:30 Bumetanide (Bumex) 3 mg BID@0900,1700 PO 05/09/20 09:00 05/15/20 07:52 Calcium Carbonate (Oscal) 500 mg DAILY PO 05/09/20 09:00 05/15/20 08:06 Ceftriaxone Sodium 2 gm/ Dextrose 50 ml @ 100 mls/hr Q24H IV 05/08/20 20:00 Cancel Ceftriaxone Sodium 2 gm/ Dextrose 50 ml @ 50 mls/hr Q24H IV 05/08/20 20:00 05/14/20 21:15 Clopidogrel Bisulfate (PLAVix) 75 mg DAILY PO 05/09/20 09:00 05/15/20 07:51 Colchicine (Colcrys) 0.6 mg DAILY PO 05/15/20 09:00 05/15/20 08:06 Dextrose (Dextrose 50%) 25 ml ASDIRECTED PRN IV SEE LABEL COMMENTS 05/08/20 11:30 Digoxin (Lanoxin) 0.125 mg DAILY PO 05/09/20 09:00 05/15/20 07:53 Docusate Sodium (Colace) 100 mg BID PO 05/08/20 21:00 05/14/20 21:18 Febuxostat (Uloric) 80 mg DAILY PO 05/15/20 09:00 05/15/20 07:51 Gabapentin (Neurontin) 300 mg TID PO 05/08/20 16:00 05/15/20 07:53 Glucagon (Glucagon) 1 mg ASDIRECTED PRN SC SEE LABEL COMMENTS 05/08/20 11:30 Glucose (Glucose) 16 GM ASDIRECTED PRN PO SEE LABEL COMMENTS 05/08/20 11:30 Heparin Sodium (Heparin (Flush)) 200 units ASDIRECTED PRN IV SEE LABEL COMMENTS 05/09/20 18:15 05/13/20 05:43 Heparin Sodium (Heparin (Flush)) 200 units PICC IV 05/10/20 06:00 05/15/20 06:27 Insulin Human Lispro (HumaLOG INSULIN) SEE PROTOCOL TABLE AC SC 05/08/20 12:00 05/08/20 18:38 DC Insulin Human Lispro (HumaLOG INSULIN) SEE PROTOCOL TABLE AC SC 05/09/20 07:30 05/15/20 07:49 Insulin Human Lispro (HumaLOG INSULIN) [facility] 05/08/20 21:00 05/14/20 21:17 Insulin Human Regular (HumuLIN R INSULIN) 100 units BID@0745,1745 NC 05/08/20 17:45 05/08/20 19:10 DC Insulin Human Regular (Humulin R U-500 Kwikpen *High Potency*) 100 units BID@0745,1745 NC 05/09/20 07:45 05/13/20 17:26 DC 05/13/20 16:54 Insulin Human Regular (Humulin R U-500 Kwikpen *High Potency*) 105 units BID@0745,1745 [place] 05/14/20 07:45 05/14/20 13:42 DC 05/14/20 07:35 Insulin Human Regular (Humulin R U-500 Kwikpen *High Potency*) 110 units BID@0745,1745 [place] 05/14/20 17:45 05/15/20 07:45 Isosorbide Mononitrate (Imdur) 60 mg DAILY PO 05/09/20 09:00 05/15/20 07:50 Lactobacillus Acidophilus (Bacid) 1 ea TID PO 05/08/20 16:00 05/15/20 07:55 Lidocaine (Lidoderm Patch) 1 patch Q TD 05/13/20 21:00 05/14/20 21:20 Magnesium Hydroxide (Milk Of Magnesia) 30 ml DAILYPRN PRN PO CONSTIPATION 05/08/20 11:30 Metolazone (Zaroxolyn) 2.5 mg MoWeFr@0900 PO 05/13/20 09:00 05/14/20 11:34 DC 05/13/20 08:53 Metoprolol Tartrate (Lopressor) 25 mg BID PO 05/08/20 21:00 05/15/20 07:55 Multivitamins (Theragram-M) 1 tab DAILY PO 05/09/20 09:00 05/15/20 07:51 Non-Formulary Medication ( See Comment Field Below ) REMOVE LIDODERM PATCH DAILY@21 XX 05/13/20 21:00 Omeprazole (PriLOSEC) 40 mg BID PO 05/08/20 21:00 05/15/20 07:50 Pen Needle (Bd Autoshield Duo PEN NEEDLE) 1 ea BID@0745,1745 XX 05/09/20 07:45 05/15/20 07:45 Potassium Chloride (Micro-K Extencaps) 40 meq BID PO 05/08/20 21:00 05/15/20 07:54 Senna (Senokot) 1 tab QHS PO 05/08/20 21:00 05/14/20 21:18 Sodium Chloride (Saline Lock Flush) 10 ml ASDIRECTED PRN IV SEE LABEL COMMENTS 05/09/20 18:15 05/13/20 05:44 Sodium Chloride (Saline Lock Flush) 10 ml PICC IV 05/10/20 06:00 05/15/20 06:28 Vancomycin HCl 750 mg/IV Miscellaneous Supplies 15 ml @ 15 mls/hr Q24H IV 05/08/20 11:30 05/08/20 12:37 DC Vancomycin HCl 750 mg/IV Miscellaneous Supplies 1 each/ Dextrose 275 ml @ 275 mls/hr Q24H IV 05/09/20 10:00 05/09/20 09:31 DC Vancomycin HCl 750 mg/IV Miscellaneous Supplies 1 each/ Dextrose 275 ml @ 275 mls/hr Q24H IV 05/09/20 11:00 05/09/20 09:31 DC Vancomycin HCl 750 mg/IV Miscellaneous Supplies 1 each/ Dextrose 275 ml @ 275 mls/hr Q24H IV 05/09/20 16:00 05/11/20 18:00 DC 05/11/20 16:51 Vancomycin HCl 750 mg/IV Miscellaneous Supplies 1 each/ Dextrose 275 ml @ 275 mls/hr Q24H IV 05/09/20 17:00 05/11/20 15:44 DC 05/10/20 17:12 Vancomycin HCl 1000 mg/IV Miscellaneous Supplies 1 each/ Dextrose 270 ml @ 270 mls/hr Q24H IV 05/12/20 12:00 05/12/20 13:05 DC Vancomycin HCl 1000 mg/IV Miscellaneous Supplies 1 each/ Dextrose 270 ml @ 270 mls/hr Q24H IV 05/12/20 17:00 05/13/20 16:47 DC 05/12/20 16:56 Vancomycin HCl 1000 mg/IV Miscellaneous Supplies 1 each/ Dextrose 270 ml @ 270 mls/hr Q24H IV 05/13/20 22:00 05/14/20 22:13 Warfarin Sodium (Coumadin) 5 mg DAILY@17 PO 05/09/20 17:00 05/09/20 09:06 DC Warfarin Sodium (Coumadin) 7.5 mg DAILY@17 PO 05/09/20 17:00 05/14/20 17:15 EDUARDO OJEDA MD May 15, 2020 08:36
[2020-05-15] MEDS ORDERED: NS 500 ML IV ONE (10:15)
[2020-05-15 10:37] LABS: C REACTIVE PROTEIN QUANTITATIV 8.36 MG/DL (0.00-0.30); URIC ACID 8.1 MG/DL (3.5-7.2)
--- NOTE | 2020-05-15 13:47 | IPN ---
PROGRESS NOTE DATE: 05/15/2020 Mr. Galindo is seen this morning on his bedside. He reports improved ankle pain but is concerned about his hyperglycemia. At home he was using Trulicty and Tresiba. For last couple of days, his blood sugars have been 400-500 mg/dL range. He denies any dyspnea, chest pain, nausea, or vomiting. PHYSICAL EXAMINATION: Temperature 96.9 degrees Fahrenheit, heart rate 76 per minute, respiratory rate 18 per minute, blood pressure 137/77 mmHg, and oxygen saturation 98% on room air. Head is atraumatic. Neck supple and without jugular venous distention (JVD) or thyroid enlargement. Heart sounds are regular and lungs clear to auscultation. Abdomen soft and nontender, and bowel sounds normal. Extremities without any cyanosis or clubbing. There is no peripheral edema. Neurologically, he is awake, alert, and oriented times three. Today's labs show WBC count 7.0, hemoglobin 14.9, and hematocrit 44. Sodium 128, potassium 3.7, BUN 66, and creatinine 2.58. Glucose 486 and calcium 8.7. Uric acid level is 8.1 and C-reactive protein up to 8.36. PROBLEMS: 1. Acute gout. Patient feels that his gout in the ankle is much better with colchicine given yesterday. I have changed his allopurinol to Uloric 80 mg daily. He will continue with colchicine 0.6 mg once a day for next couple of days, and then I will stop it. 2. Hyperglycemia. His diabetes has been poorly controlled. Unfortunately, Trulicity is not available in the hospital. He is on U500 insulin, and I will recommend increasing the dose. He continues with insulin coverage. 3. Congestive heart failure. His volume status remains well compensated. His metolazone has been stopped in view of over-diuresis and acute gout. I do not feel that he needs metolazone at this point. 4. Acute on chronic kidney disease. Kidney function is mostly stable with mild fluctuations. Patient will continue with current diuretics. 5. Generalized weakness and deconditioning. Patient is making good progress with his rehabilitation.
[2020-05-15 14:00] VITALS: BP 146/64
[2020-05-15] MEDS: WARFARIN SOD 3MG TAB PO SCH (17:04)
[2020-05-15] MEDS: SODIUM CHLORIDE 0.9% INJ 10 ML SYR IV PRN (19:12)
[2020-05-15 20:45] VITALS: BP 162/77
[2020-05-15] MEDS: **NOTE PATIENT COMMENT** MISC XX SCH (21:00)
[2020-05-15] MEDS: SENNA 8.6 MG TAB (SENOKOT) PO SCH (22:08)
[2020-05-15] MEDS: LIDOCAINE 5% (LIDODERM) PATCH TD SCH (22:12)
[2020-05-15] MEDS: cefTRIAXone SOD 2 GM in D5W MINI-BAG PLUS 50 ML IV SCH (22:13)
[2020-05-15] MEDS: VANCOMYCIN HCL 1,000 MG, VIAL MATE ADAPTER 1 EACH in D5W 250 ML IV SCH (23:16)
[2020-05-16] MEDS: SODIUM CHLORIDE 0.9% INJ 10 ML SYR IV PRN ×2 (05:50→15:11)
[2020-05-16] MEDS: SODIUM CHLORIDE 0.9% INJ 10 ML SYR IV SCH ×2 (05:50→17:11)
[2020-05-16 06:00] VITALS: BP 141/65
[2020-05-16] MEDS: PEN NEEDLE (USE WITH HUMULIN U-500 INSULIN PEN) XX SCH ×2 (07:45→17:11)
[2020-05-16 07:46] LABS: INR 2.76; PROTHROMBIN TIME 29.8 SECONDS (12.5-14.3)
[2020-05-16 08:25] LABS: CALCIUM LEVEL 8.8 MG/DL (8.8-10.2); CREATININE FOR GFR 2.55 MG/DL (0.70-1.30); GLOMERULAR FILTRATION RATE 26.9 (>49); POTASSIUM SERUM 3.6 MEQ/L (3.5-5.1)
[2020-05-16] MEDS: OYSTER SHELL CALCIUM 500 MG TAB PO SCH (08:51)
[2020-05-16] MEDS: MULTIVITAMINS/MINERALS THERAP 1 TAB PO SCH (08:51)
[2020-05-16] MEDS: ATORVASTATIN 20 MG TAB PO SCH (08:52)
[2020-05-16] MEDS: FEBUXOSTAT 40 MG TABLET (ULORIC) PO SCH (08:52)
[2020-05-16] MEDS: POTASSIUM CHLORIDE 10 MEQ SR TABLET PO SCH ×2 (08:52→20:36)
[2020-05-16] MEDS: GABAPENTIN 300 MG CAP PO SCH ×3 (08:52→20:36)
[2020-05-16] MEDS: OMEPRAZOLE 20 MG CAP PO SCH ×2 (08:52→20:36)
[2020-05-16] MEDS: ASPIRIN 81 MG ENTERIC TAB PO SCH (08:53)
[2020-05-16] MEDS: ACETAMINOPHEN 500 MG TAB PO SCH ×3 (08:53→20:35)
[2020-05-16] MEDS: LACTOBACILLUS ACIDOPHILUS CAP (BACID) PO SCH ×3 (08:53→20:36)
[2020-05-16] MEDS: BUMETANIDE 1 MG TAB PO SCH ×2 (08:53→17:09)
[2020-05-16] MEDS: DOCUSATE SODIUM 100MG CAPSULE PO SCH ×2 (08:54→20:36)
[2020-05-16] MEDS: DIGOXIN 0.125 MG TAB PO SCH (08:55)
[2020-05-16] MEDS: CLOPIDOGREL 75 MG TAB PO SCH (08:56)
[2020-05-16] MEDS: ISOSORBIDE MON. (IMDUR) 60 MG XR TAB PO SCH (08:56)
[2020-05-16] MEDS: METOPROLOL TART 25 MG TABLET PO SCH ×2 (08:56→20:37)
[2020-05-16] MEDS: COLCHICINE 0.6 MG TABLET PO SCH (08:57)
[2020-05-16] MEDS: aMILoride 5 MG TAB PO SCH ×2 (08:57→20:36)
[2020-05-16] MEDS: HumaLOG INSULIN (NovoLOG) PER UNIT SC SCH ×4 (08:58→20:37)
[2020-05-16] MEDS: HUMULIN R U-500 KWIKPEN 500UNITS/ML 3ML SYRINGE (J1815 PER 5UNITS) SC SCH ×2 (08:58→17:11)
[2020-05-16] MEDS: REMEDY PHYTOPLEX Z-GUARD PASTE 113GM TUBE (FROM STOREROOM PRODUCT) TOP SCH ×3 (08:59→20:37)
[2020-05-16] MEDS ORDERED: PILL CUTTER 1 EACH XX PRN (09:45)
[2020-05-16] MEDS: SITagliptin 50 MG TAB (JANUVIA) PO SCH (10:26)
[2020-05-16] MEDS ORDERED: HumaLOG INSULIN (NovoLOG) PER UNIT SC ONE ×2 (10:45→20:00)
[2020-05-16 10:52] LABS: C REACTIVE PROTEIN QUANTITATIV 5.9 MG/DL (0.00-0.30)
--- NOTE | 2020-05-16 12:49 | IPN ---
PROGRESS NOTE DATE: 05/16/2020 Mr. Galindo is seen this morning on his bedside. He is currently working with rehabilitation staff in the apartment in order for him to go home. His only concern is uncontrolled diabetes, but otherwise he has been doing good and making progress. He denies any dyspnea, chest pain, nausea, or vomiting. Gout in his left ankle has improved. PHYSICAL EXAMINATION: Temperature 97.3 degrees Fahrenheit, heart rate 80 per minute, respiratory rate 18 per minute, blood pressure 137/70 mmHg, and oxygen saturation 99% on room air. His head is atraumatic. Neck supple and without jugular venous distention (JVD) or thyroid enlargement. Heart sounds are regular and lungs clear to auscultation. Abdomen obese, soft, and nontender, and bowel sounds are normal. Extremities without any cyanosis or clubbing. Today's labs show sodium 128, glucose 458, potassium 3.6, CO2 of 29, BUN 63, creatinine 2.55. A C-reactive protein is 5.90. PROBLEMS: 1. Acute kidney injury superimposed on chronic kidney disease. Patient has mild fluctuations in kidney function, and overall he has been stable with GFR between 27-28. I do not see a clear trend in his kidney function at this point. 2. Hyponatremia. Patient has pseudohyponatremia related to severe hyperglycemia. Once his hyperglycemia improves, the hyponatremia will also improve. 3. Uncontrolled diabetes. I have discussed with the acute rehabilitation physician about his uncontrolled diabetes. He is being started on Januvia 25 mg today. Unfortunately, Trulicity that he was using at home is not available in the hospital. His insulin is also being increased. Patient will followup with endocrinology after discharge. 4. Gout. Patient has been recently switched from allopurinol to Uloric 80 mg daily. He is also on colchicine 0.6 mg daily for now due to recent acute episode. His metolazone has been stopped for the same reason. He can continue with colchicine for another week or so, and then he can stop it. He should continue with Uloric 80 mg daily and followup in the office.
[2020-05-16 14:00] VITALS: BP 125/60
[2020-05-16] MEDS ORDERED: cefTRIAXone SOD 2 GM in D5W MINI-BAG PLUS 50 ML IV ONE (14:00)
[2020-05-16] MEDS: WARFARIN SOD 3MG TAB PO SCH (17:09)
[2020-05-16 20:10] VITALS: BP 137/65
[2020-05-16] MEDS: SENNA 8.6 MG TAB (SENOKOT) PO SCH (20:36)
[2020-05-16] MEDS: **NOTE PATIENT COMMENT** MISC XX SCH (20:37)
[2020-05-16] MEDS: LIDOCAINE 5% (LIDODERM) PATCH TD SCH (20:38)
[2020-05-16] MEDS ORDERED: VANCOMYCIN HCL 500 MG, VIAL MATE ADAPTER 1 EACH in NS 100 ML IV ONE (22:00)
[2020-05-17 05:30] VITALS: BP 130/66
[2020-05-17] MEDS: SODIUM CHLORIDE 0.9% INJ 10 ML SYR IV SCH ×2 (05:40→17:05)
[2020-05-17] MEDS: SODIUM CHLORIDE 0.9% INJ 10 ML SYR IV PRN ×2 (05:40→10:43)
[2020-05-17] MEDS: HUMULIN R U-500 KWIKPEN 500UNITS/ML 3ML SYRINGE (J1815 PER 5UNITS) SC SCH ×2 (08:51→17:01)
[2020-05-17] MEDS: cefTRIAXone SOD 2 GM in D5W MINI-BAG PLUS 50 ML IV SCH (08:51)
[2020-05-17] MEDS: HumaLOG INSULIN (NovoLOG) PER UNIT SC SCH ×4 (08:52→20:28)
[2020-05-17] MEDS: PEN NEEDLE (USE WITH HUMULIN U-500 INSULIN PEN) XX SCH ×2 (08:52→17:01)
[2020-05-17] MEDS: COLCHICINE 0.6 MG TABLET PO SCH (08:53)
[2020-05-17] MEDS: BUMETANIDE 1 MG TAB PO SCH ×2 (08:53→17:04)
[2020-05-17] MEDS: aMILoride 5 MG TAB PO SCH ×2 (08:53→20:25)
[2020-05-17] MEDS: FEBUXOSTAT 40 MG TABLET (ULORIC) PO SCH (08:53)
[2020-05-17] MEDS: OYSTER SHELL CALCIUM 500 MG TAB PO SCH (08:54)
[2020-05-17] MEDS: GABAPENTIN 300 MG CAP PO SCH ×3 (08:54→20:25)
[2020-05-17] MEDS: POTASSIUM CHLORIDE 10 MEQ SR TABLET PO SCH ×2 (08:54→20:26)
[2020-05-17] MEDS: ATORVASTATIN 20 MG TAB PO SCH (08:54)
[2020-05-17] MEDS: DIGOXIN 0.125 MG TAB PO SCH (08:54)
[2020-05-17] MEDS: LACTOBACILLUS ACIDOPHILUS CAP (BACID) PO SCH ×3 (08:54→20:25)
[2020-05-17] MEDS: MULTIVITAMINS/MINERALS THERAP 1 TAB PO SCH (08:54)
[2020-05-17] MEDS: ACETAMINOPHEN 500 MG TAB PO SCH ×3 (08:54→20:25)
[2020-05-17] MEDS: OMEPRAZOLE 20 MG CAP PO SCH ×2 (08:54→20:25)
[2020-05-17] MEDS: ASPIRIN 81 MG ENTERIC TAB PO SCH (08:54)
[2020-05-17] MEDS: SITagliptin 50 MG TAB (JANUVIA) PO SCH (08:54)
[2020-05-17] MEDS: CLOPIDOGREL 75 MG TAB PO SCH (08:54)
[2020-05-17] MEDS: REMEDY PHYTOPLEX Z-GUARD PASTE 113GM TUBE (FROM STOREROOM PRODUCT) TOP SCH ×3 (08:55→20:28)
[2020-05-17] MEDS: ISOSORBIDE MON. (IMDUR) 60 MG XR TAB PO SCH (08:55)
[2020-05-17] MEDS: DOCUSATE SODIUM 100MG CAPSULE PO SCH ×2 (08:55→20:25)
[2020-05-17] MEDS: METOPROLOL TART 25 MG TABLET PO SCH ×2 (08:55→20:27)
[2020-05-17 10:24] LABS: BASO # 0.1 10^3/uL (0.0-0.2); BASO % 1.5 % (0.0-1.0); EOS # 0.3 10^3/uL (0.0-0.5); EOS % 3.4 % (0.0-3.0); HEMATOCRIT 44.9 % (42.0-52.0); HEMOGLOBIN 15.2 g/dl (13.5-17.5); LYMPH # 1.2 10^3/uL (1.5-5.0); LYMPH % 14.2 % (24.0-44.0); MEAN CORPUSCULAR HEMOGLOBIN 31.9 pg (27.0-33.0); MEAN CORPUSCULAR HGB CONC 33.9 g/dl (32.0-36.5); MEAN CORPUSCULAR VOLUME 94.1 fl (80.0-96.0); MONO # 0.8 10^3/uL (0.0-0.8); MONO % 9.8 % (0.0-5.0); NEUTROPHILS # 5.8 10^3/uL (1.5-8.5); NEUTROPHILS % 70.7 % (36.0-66.0); PLATELET COUNT, AUTOMATED 258 10^3/uL (150-450); RED BLOOD COUNT 4.77 10^6/uL (4.30-6.10); WHITE BLOOD COUNT 8.2 10^3/uL (4.0-10.0)
[2020-05-17 10:39] LABS: INR 2.94; PROTHROMBIN TIME 31.3 SECONDS (12.5-14.3)
[2020-05-17 10:42] LABS: CREATININE FOR GFR 2.42 MG/DL (0.70-1.30); GLOMERULAR FILTRATION RATE 28.6 (>49); POTASSIUM SERUM 3.7 MEQ/L (3.5-5.1)
[2020-05-17] MEDS: VANCOMYCIN HCL 1,000 MG, VIAL MATE ADAPTER 1 EACH in NS 250 ML IV SCH (10:42)
[2020-05-17 10:43] LABS: C REACTIVE PROTEIN QUANTITATIV 3.11 MG/DL (0.00-0.30)
[2020-05-17 14:00] VITALS: BP 125/58
--- NOTE | 2020-05-17 15:14 | IPN ---
PROGRESS NOTE DATE: 05/17/2020 SUBJECTIVE: Mr. Galindo is seen this morning on his bedside. He is sitting in the chair and reports feeling about the same. The nursing staff reports that his blood sugars have improved significantly with medication changes yesterday. The patient denies any nausea or vomiting, dyspnea or chest pain. PHYSICAL EXAMINATION: VITAL SIGNS: Temperature is 97.3 degrees Fahrenheit, heart rate is 68 per minute and respiratory rate is 18 per minute. Blood pressure is 130/66 mmHg and oxygen saturation 97% on room air. HEAD: Atraumatic. NECK: Supple without JVD or thyroid enlargement. HEART: Regular. LUNGS: Clear to auscultation. ABDOMEN: Soft and nontender. Bowel sounds are normal. EXTREMITIES: Without any cyanosis or clubbing. NEUROLOGIC: He is awake, alert and oriented x3. LABORATORY DATA: Today's labs showed a WBC count of 8.2, hemoglobin 15.2 and hematocrit 45. Sodium is 130, potassium is 3.7, BUN 60 and creatinine 2.42. Glucose is 204 and calcium is 9.0. PROBLEMS: 1. Acute kidney injury superimposed on chronic kidney disease. Slight improvement is noticed and the patient has no uremic symptoms. No changes are being made today. 2. Hyponatremia. His sodium level is gradually improving as his hyperglycemia has improved. He has been on chronic diuretic therapy which is also contributing to his hyponatremia. At this point, no changes are needed and electrolytes should be repeated again tomorrow. 3. Uncontrolled diabetes. Patient had medications adjusted yesterday and blood sugars have improved today. He is pleased with improvement. 4. Gout. His acute gout has resolved. Patient has been on daily Colchicine which is being stopped today. He remains on Uloric 80 mg daily and Allopurinol has been stopped.
[2020-05-17] MEDS: WARFARIN SOD 3MG TAB PO SCH (17:03)
[2020-05-17 20:00] VITALS: BP 146/96
[2020-05-17] MEDS: SENNA 8.6 MG TAB (SENOKOT) PO SCH (20:25)
[2020-05-17] MEDS: **NOTE PATIENT COMMENT** MISC XX SCH (20:28)
[2020-05-17] MEDS: LIDOCAINE 5% (LIDODERM) PATCH TD SCH (20:28)
[2020-05-18 06:00] VITALS: BP 137/70
[2020-05-18] MEDS: SODIUM CHLORIDE 0.9% INJ 10 ML SYR IV SCH ×2 (06:03→17:16)
[2020-05-18] MEDS: SODIUM CHLORIDE 0.9% INJ 10 ML SYR IV PRN ×2 (06:03→12:09)
[2020-05-18 07:03] LABS: INR 3.29; PROTHROMBIN TIME 34.2 SECONDS (12.5-14.3)
[2020-05-18] MEDS: PEN NEEDLE (USE WITH HUMULIN U-500 INSULIN PEN) XX SCH ×2 (08:27→17:17)
[2020-05-18] MEDS: HUMULIN R U-500 KWIKPEN 500UNITS/ML 3ML SYRINGE (J1815 PER 5UNITS) SC SCH ×2 (08:27→17:17)
[2020-05-18] MEDS: HumaLOG INSULIN (NovoLOG) PER UNIT SC SCH ×4 (08:28→20:47)
[2020-05-18] MEDS: ATORVASTATIN 20 MG TAB PO SCH (08:28)
[2020-05-18] MEDS: ASPIRIN 81 MG ENTERIC TAB PO SCH (08:28)
[2020-05-18] MEDS: FEBUXOSTAT 40 MG TABLET (ULORIC) PO SCH (08:28)
[2020-05-18] MEDS: GABAPENTIN 300 MG CAP PO SCH ×3 (08:29→20:48)
[2020-05-18] MEDS: ISOSORBIDE MON. (IMDUR) 60 MG XR TAB PO SCH (08:29)
[2020-05-18] MEDS: cefTRIAXone SOD 2 GM in D5W MINI-BAG PLUS 50 ML IV SCH (08:29)
[2020-05-18] MEDS: POTASSIUM CHLORIDE 10 MEQ SR TABLET PO SCH ×2 (08:29→20:48)
[2020-05-18] MEDS: BUMETANIDE 1 MG TAB PO SCH ×2 (08:29→17:14)
[2020-05-18] MEDS: DIGOXIN 0.125 MG TAB PO SCH (08:30)
[2020-05-18] MEDS: SITagliptin 50 MG TAB (JANUVIA) PO SCH (08:30)
[2020-05-18] MEDS: ACETAMINOPHEN 500 MG TAB PO SCH ×3 (08:30→20:49)
[2020-05-18] MEDS: MULTIVITAMINS/MINERALS THERAP 1 TAB PO SCH (08:30)
[2020-05-18] MEDS: OYSTER SHELL CALCIUM 500 MG TAB PO SCH (08:30)
[2020-05-18] MEDS: aMILoride 5 MG TAB PO SCH ×2 (08:30→20:48)
[2020-05-18] MEDS: CLOPIDOGREL 75 MG TAB PO SCH (08:30)
[2020-05-18] MEDS: OMEPRAZOLE 20 MG CAP PO SCH ×2 (08:30→20:48)
[2020-05-18] MEDS: LACTOBACILLUS ACIDOPHILUS CAP (BACID) PO SCH ×3 (08:30→20:48)
[2020-05-18] MEDS: METOPROLOL TART 25 MG TABLET PO SCH ×2 (08:30→20:50)
[2020-05-18] MEDS: REMEDY PHYTOPLEX Z-GUARD PASTE 113GM TUBE (FROM STOREROOM PRODUCT) TOP SCH ×3 (08:31→20:51)
[2020-05-18] MEDS: DOCUSATE SODIUM 100MG CAPSULE PO SCH ×2 (08:31→20:48)
[2020-05-18] MEDS: VANCOMYCIN HCL 1,000 MG, VIAL MATE ADAPTER 1 EACH in NS 250 ML IV SCH (10:38)
[2020-05-18 14:00] VITALS: BP 156/58
[2020-05-18] MEDS ORDERED: WARFARIN SOD 2MG TAB PO ONE (17:00)
[2020-05-18 20:00] VITALS: BP 112/53
[2020-05-18] MEDS: LIDOCAINE 5% (LIDODERM) PATCH TD SCH (20:47)
[2020-05-18] MEDS: SENNA 8.6 MG TAB (SENOKOT) PO SCH (20:48)
[2020-05-18] MEDS: **NOTE PATIENT COMMENT** MISC XX SCH (20:51)
[2020-05-19] MEDS: SODIUM CHLORIDE 0.9% INJ 10 ML SYR IV SCH ×2 (05:26→17:38)
[2020-05-19 06:00] VITALS: BP 131/59
[2020-05-19] MEDS: BUMETANIDE 1 MG TAB PO SCH ×2 (07:30→17:37)
[2020-05-19] MEDS: LACTOBACILLUS ACIDOPHILUS CAP (BACID) PO SCH ×3 (07:30→20:29)
[2020-05-19] MEDS: FEBUXOSTAT 40 MG TABLET (ULORIC) PO SCH (07:31)
[2020-05-19] MEDS: GABAPENTIN 300 MG CAP PO SCH ×3 (07:31→20:28)
[2020-05-19] MEDS: METOPROLOL TART 25 MG TABLET PO SCH ×2 (07:31→20:32)
[2020-05-19] MEDS: OYSTER SHELL CALCIUM 500 MG TAB PO SCH (07:31)
[2020-05-19] MEDS: POTASSIUM CHLORIDE 10 MEQ SR TABLET PO SCH ×2 (07:31→20:28)
[2020-05-19] MEDS: ISOSORBIDE MON. (IMDUR) 60 MG XR TAB PO SCH (07:31)
[2020-05-19] MEDS: CLOPIDOGREL 75 MG TAB PO SCH (07:32)
[2020-05-19] MEDS: SITagliptin 50 MG TAB (JANUVIA) PO SCH (07:32)
[2020-05-19] MEDS: HumaLOG INSULIN (NovoLOG) PER UNIT SC SCH ×4 (07:32→20:28)
[2020-05-19] MEDS: OMEPRAZOLE 20 MG CAP PO SCH ×2 (07:32→20:29)
[2020-05-19] MEDS: aMILoride 5 MG TAB PO SCH ×2 (07:33→20:29)
[2020-05-19] MEDS: DOCUSATE SODIUM 100MG CAPSULE PO SCH ×2 (07:33→20:28)
[2020-05-19] MEDS: ATORVASTATIN 20 MG TAB PO SCH (07:33)
[2020-05-19] MEDS: DIGOXIN 0.125 MG TAB PO SCH (07:33)
[2020-05-19] MEDS: ASPIRIN 81 MG ENTERIC TAB PO SCH (07:33)
[2020-05-19] MEDS: ACETAMINOPHEN 500 MG TAB PO SCH ×3 (07:34→20:30)
[2020-05-19] MEDS: REMEDY PHYTOPLEX Z-GUARD PASTE 113GM TUBE (FROM STOREROOM PRODUCT) TOP SCH ×3 (07:34→20:27)
[2020-05-19] MEDS: MULTIVITAMINS/MINERALS THERAP 1 TAB PO SCH (07:34)
[2020-05-19 07:36] LABS: INR 3.09; PROTHROMBIN TIME 32.6 SECONDS (12.5-14.3)
[2020-05-19] MEDS: cefTRIAXone SOD 2 GM in D5W MINI-BAG PLUS 50 ML IV SCH (09:18)
[2020-05-19] MEDS: VANCOMYCIN HCL 1,000 MG, VIAL MATE ADAPTER 1 EACH in NS 250 ML IV SCH (10:05)
[2020-05-19] MEDS: PEN NEEDLE (USE WITH HUMULIN U-500 INSULIN PEN) XX SCH ×2 (10:06→17:36)
[2020-05-19] MEDS: HUMULIN R U-500 KWIKPEN 500UNITS/ML 3ML SYRINGE (J1815 PER 5UNITS) SC SCH ×2 (10:06→17:36)
[2020-05-19 14:00] VITALS: BP 119/73
[2020-05-19] MEDS ORDERED: WARFARIN SOD 4MG TAB PO ONE (19:11)
[2020-05-19 20:00] VITALS: BP 121/67
[2020-05-19] MEDS: **NOTE PATIENT COMMENT** MISC XX SCH (20:27)
[2020-05-19] MEDS: LIDOCAINE 5% (LIDODERM) PATCH TD SCH (20:27)
[2020-05-19] MEDS: SENNA 8.6 MG TAB (SENOKOT) PO SCH (20:29)
[2020-05-20] MEDS: SODIUM CHLORIDE 0.9% INJ 10 ML SYR IV SCH (05:52)
[2020-05-20 06:00] VITALS: BP 137/64
[2020-05-20] MEDS: HUMULIN R U-500 KWIKPEN 500UNITS/ML 3ML SYRINGE (J1815 PER 5UNITS) SC SCH (08:28)
[2020-05-20] MEDS: PEN NEEDLE (USE WITH HUMULIN U-500 INSULIN PEN) XX SCH (08:28)
[2020-05-20] MEDS: HumaLOG INSULIN (NovoLOG) PER UNIT SC SCH (08:28)
[2020-05-20] MEDS: DIGOXIN 0.125 MG TAB PO SCH (08:29)
[2020-05-20] MEDS: cefTRIAXone SOD 2 GM in D5W MINI-BAG PLUS 50 ML IV SCH (08:29)
[2020-05-20 08:30] VITALS: BP 137/64
[2020-05-20] MEDS: POTASSIUM CHLORIDE 10 MEQ SR TABLET PO SCH (08:30)
[2020-05-20] MEDS: OMEPRAZOLE 20 MG CAP PO SCH (08:30)
[2020-05-20] MEDS: LACTOBACILLUS ACIDOPHILUS CAP (BACID) PO SCH (08:30)
[2020-05-20] MEDS: METOPROLOL TART 25 MG TABLET PO SCH (08:30)
[2020-05-20] MEDS: OYSTER SHELL CALCIUM 500 MG TAB PO SCH (08:30)
[2020-05-20] MEDS: ATORVASTATIN 20 MG TAB PO SCH (08:30)
[2020-05-20] MEDS: aMILoride 5 MG TAB PO SCH (08:30)
[2020-05-20] MEDS: BUMETANIDE 1 MG TAB PO SCH (08:30)
[2020-05-20] MEDS: CLOPIDOGREL 75 MG TAB PO SCH (08:30)
[2020-05-20] MEDS: FEBUXOSTAT 40 MG TABLET (ULORIC) PO SCH (08:30)
[2020-05-20] MEDS: ISOSORBIDE MON. (IMDUR) 60 MG XR TAB PO SCH (08:30)
[2020-05-20] MEDS: MULTIVITAMINS/MINERALS THERAP 1 TAB PO SCH (08:30)
[2020-05-20] MEDS: DOCUSATE SODIUM 100MG CAPSULE PO SCH (08:31)
[2020-05-20] MEDS: ASPIRIN 81 MG ENTERIC TAB PO SCH (08:31)
[2020-05-20] MEDS: SITagliptin 50 MG TAB (JANUVIA) PO SCH (08:31)
[2020-05-20] MEDS: GABAPENTIN 300 MG CAP PO SCH (08:31)
[2020-05-20] MEDS: ACETAMINOPHEN 500 MG TAB PO SCH (08:31)
[2020-05-20] MEDS: REMEDY PHYTOPLEX Z-GUARD PASTE 113GM TUBE (FROM STOREROOM PRODUCT) TOP SCH (08:31)
[2020-05-20 08:39] LABS: CALCIUM LEVEL 8.6 MG/DL (8.8-10.2); CREATININE FOR GFR 2.06 MG/DL (0.70-1.30); GLOMERULAR FILTRATION RATE 34.5 (>49); POTASSIUM SERUM 4.4 MEQ/L (3.5-5.1)
[2020-05-20] MEDS ORDERED: CLOP75TA2 PO (08:52)
[2020-05-20] MEDS ORDERED: MONT5TAB2 PO (08:52)
[2020-05-20] MEDS ORDERED: HUMU500S2 SC (08:52)
[2020-05-20] MEDS ORDERED: METO25TA4 PO (08:52)
[2020-05-20] MEDS ORDERED: RISATAB3 PO (08:52)
[2020-05-20] MEDS ORDERED: ASPI81TAEC PO (08:52)
[2020-05-20] MEDS ORDERED: FEBU40TA2 PO (08:52)
[2020-05-20] MEDS ORDERED: KLOR10TA76 PO (08:52)
[2020-05-20] MEDS ORDERED: OMEP40CA97 PO (08:52)
[2020-05-20] MEDS ORDERED: AMIL5TAB4 PO (08:52)
[2020-05-20] MEDS ORDERED: WARF-20 PO (08:52)
[2020-05-20] MEDS ORDERED: BUME1TAB3 PO (08:52)
[2020-05-20] MEDS ORDERED: SITA50TAB PO (08:52)
[2020-05-20] MEDS ORDERED: DIGO0.123 PO (08:52)
[2020-05-20] MEDS ORDERED: ATOR80TA59 PO (08:52)
[2020-05-20] MEDS ORDERED: ZYLO300T6 PO (08:52)
[2020-05-20] MEDS ORDERED: GABA-843 PO (08:52)
[2020-05-20] MEDS ORDERED: ISOS60TA2 PO (08:52)
[2020-05-20 09:05] LABS: INR 2.45; PROTHROMBIN TIME 27.1 SECONDS (12.5-14.3)
--- NOTE | 2020-05-20 09:11 | IPNPDOC ---
PM&R Progress Note DATE OF SERVICE: May 16, 2020 Sole Assessor Progress Note Subjective; Patient reporting his ankle pain continues to improve and that he is concerned about his insurance covering his medications. REVIEW OF SYSTEMS: The following is a completed review of systems and has been reviewed. Review of systems otherwise unremarkable. PAIN: Patient self reports mild right ankle pain (improving) EYES: No recent vision changes EARS, NOSE, & THROAT: No throat pain, or dysphagia, or rhinorrhea CARDIOVASCULAR: Denies chest pain or palpitations PULMONARY: +shortness of breath with exertion GASTROINTESTINAL: Denies constipation/diarrhea GENITOURINARY: reports dark urine, no dysuria MUSCULOSKELETAL: generalized weakness NEUROLOGICAL:+paresthesias HEMATOLOGICAL: denies easy bruising SKIN: denies rash PSYCHIATRIC: Unremarkable All other review of systems found to be negative. PHYSICAL EXAMINATION: VITAL SIGNS: Please see below. GENERAL: Pleasant and cooperative. No acute distress. obese HEENT: PERRL. Extraocular movements intact. Clear conjunctiva CARDIOVASCULAR: Regular rate and rhythm. No murmurs, rubs, or gallops LUNGS: Clear to auscultation bilaterally. No wheezes. No rhonchi ABDOMEN: Soft, nontender, nondistended. Positive bowel sounds. Normal active bowel sound. NEUROLOGICAL: Alert and oriented times three. Cranial nerves II through XII grossly intact. Sensation diminished to light touch in stocking/glove pattern. EXTREMITIES: 5\5 strength bilateral upper extremities. 5-\5 strength right lower extremity. 5-/5 strength in left lower extremity. +bilat LE edema no TTP right lateral malleoli, no discrete ankle swelling given baseline edema, no warmth (-) TTP right base of 5th metatarsal SKIN: bilat calves with hyperpigmentation ASSESSMENT:69-year-old M with past medical history of CHF, CKD, PE/DVT who p resents status post L2-L3 discitis with gait impairment PLAN: 1. Rehab- PT/OT advance gait and ADLs, strengthen/stretch/maintain ROM all 4 limbs, energy conservation- room privileges 2. Neuro- peripheral polyneuropathy due to poorly controlled DM, lumbar spinal stenosis and L2-L3 discitis contributing to current mobility and functional impairments 3. Cardiac- CAD with diastolic CHF, patient discharged on ASA and Plavix- c/u BP meds and fluid restrict with daily weights, medicine consulted for assistance with overall management 4. 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 Renal- CKD4 with IgA nephropathy-renal consulted to assist with fluid management, recs appreciated 6. ID- L2-L3 discitis on Ceftriaxone and vancomycin for 6 weeks total- ID consulted, CRP elevated today likely due to gout flare-up, improving 7. GI ppx- prilosec 8. DVT ppx- on coumadin 9. Pain- right ankle pain, concern for possible fracture, Xray ordered and negative for ankle fracture, c/u tylenol 1g tid, lidoderm patch, ice, c/u daniela wrap- -started on colchicine and uloric for suspected gout per renal, ankle swelling and pain improved- recs appreciated 10. ENdo- poorly controlled DM with hyperglycemia-patient still not responding to increased Humulin dosing, will add daily Januvia, increase Humulin-U to 130 units, and ask pharmacy to change Vancomycin solution from D5 to NS to see if this helps control his levels- additional overnight FS ordered to monitor for hypoglycemia as patient also has tendency to drop -patient on trulicity at home once a week, inhouse pharmacy does not carry this 11. Dispo- postponed due to uncontrolled diabetes, will c/u to work on adjusting insulin dosing, goal to home 05-20-20 Allergies Coded Allergies: DANIELA Inhibitors (Verified Allergy, Intermediate, RASH, 05/03/20) spironolactone (Verified Adverse Reaction, Intermediate, gynecomastia, 05/03/20) Vital Signs Vital Signs Date Time Temp Pulse Resp B/P (MAP) Pulse Ox O2 Delivery O2 Flow Rate FiO2 05/20/20 08:30 68 137/64 05/20/20 06:00 97.7 18 100 Room Air Laboratory Data CBC/BMP Laboratory Tests 05/20/20 07:43 Labs 24H Laboratory Tests 2 05/19/20 11:37: Bedside Glucose (Misc Panel) 240H 05/19/20 16:30: Bedside Glucose (Misc Panel) 201H 05/19/20 19:29: Bedside Glucose (Misc Panel) 225H 05/20/20 05:29: Bedside Glucose (Misc Panel) 311H 05/20/20 07:43: Anion Gap 7L, Glomerular Filtration Rate 34.5L, Calcium Level 8.6L Microbiology Microbiology 05/14/20 Respiratory Virus Panel (PCR) (GUILLERMO) - Final, Complete Current Medications Current Medications Current Medications Medications (Trade) Dose Ordered Sig/Tavia Route PRN Reason Start Time Stop Time Status Last Admin Dose Admin Acetaminophen (Tylenol Tab) 650 mg Q4HP PRN PO fever/MILD PAIN (PS 1-4) 05/08/20 11:30 05/13/20 18:36 DC 05/09/20 20:34 Acetaminophen (Tylenol Tab) 1,000 mg TID PO 05/13/20 18:45 05/13/20 18:51 DC Acetaminophen (Tylenol Tab) 1,000 mg TID PO 05/13/20 21:00 05/20/20 08:31 Allopurinol (Zyloprim) 300 mg DAILY PO 05/09/20 09:00 05/14/20 11:34 DC 05/14/20 07:36 Amiloride HCl (Midamor) 10 mg BID PO 05/09/20 09:00 05/20/20 08:30 Aspirin (Ecotrin) 81 mg DAILY PO 05/09/20 09:00 05/20/20 08:31 Atorvastatin Calcium (Lipitor) 80 mg DAILY PO 05/09/20 09:00 05/20/20 08:30 Bisacodyl (Dulcolax Suppository) 10 mg DAILYPRN PRN [place] CONSTIPATION 05/08/20 11:30 Bumetanide (Bumex) 3 mg BID@0900,1700 PO 05/09/20 09:00 05/20/20 08:30 Calcium Carbonate (Oscal) 500 mg DAILY PO 05/09/20 09:00 05/20/20 08:30 Ceftriaxone Sodium 2 gm/ Dextrose 50 ml @ 100 mls/hr Q24H IV 05/08/20 20:00 Cancel Ceftriaxone Sodium 2 gm/ Dextrose 50 ml @ 50 mls/hr Q24H IV 05/17/20 09:00 05/20/20 08:29 Ceftriaxone Sodium 2 gm/ Dextrose 50 ml @ 50 mls/hr Q24H IV 05/08/20 20:00 05/16/20 12:24 DC 05/15/20 22:13 Clopidogrel Bisulfate (PLAVix) 75 mg DAILY PO 05/09/20 09:00 05/20/20 08:30 Colchicine (Colcrys) 0.6 mg DAILY PO 05/15/20 09:00 05/17/20 14:03 DC 05/17/20 08:53 Dextrose (Dextrose 50%) 25 ml ASDIRECTED PRN IV SEE LABEL COMMENTS 05/08/20 11:30 Digoxin (Lanoxin) 0.125 mg DAILY PO 05/09/20 09:00 05/20/20 08:29 Docusate Sodium (Colace) 100 mg BID PO 05/08/20 21:00 05/19/20 20:28 Febuxostat (Uloric) 80 mg DAILY PO 05/15/20 09:00 05/20/20 08:30 Gabapentin (Neurontin) 300 mg TID PO 05/08/20 16:00 05/20/20 08:31 Glucagon (Glucagon) 1 mg ASDIRECTED PRN SC SEE LABEL COMMENTS 05/08/20 11:30 Glucose (Glucose) 16 GM ASDIRECTED PRN PO SEE LABEL COMMENTS 05/08/20 11:30 Heparin Sodium (Heparin (Flush)) 200 units ASDIRECTED PRN IV SEE LABEL COMMENTS 05/09/20 18:15 05/18/20 12:09 Heparin Sodium (Heparin (Flush)) 200 units PICC IV 05/10/20 06:00 05/20/20 05:52 Insulin Human Lispro (HumaLOG INSULIN) SEE PROTOCOL TABLE AC HI 05/08/20 12:00 05/08/20 18:38 DC Insulin Human Lispro (HumaLOG INSULIN) SEE PROTOCOL TABLE AC HI 05/09/20 07:30 05/20/20 08:28 Insulin Human Lispro (HumaLOG INSULIN) SEE PROTOCOL TABLE QHS HI 05/08/20 21:00 05/18/20 20:47 Insulin Human Regular (HumuLIN R INSULIN) 100 units BID@0745,1745 HI 05/08/20 17:45 05/08/20 19:10 DC Insulin Human Regular (Humulin R U-500 Kwikpen *High Potency*) 100 units BID@0745,1745 HI 05/09/20 07:45 05/13/20 17:26 DC 05/13/20 16:54 Insulin Human Regular (Humulin R U-500 Kwikpen *High Potency*) 105 units BID@0745,1745 HI 05/14/20 07:45 05/14/20 13:42 DC 05/14/20 07:35 Insulin Human Regular (Humulin R U-500 Kwikpen *High Potency*) 110 units BID@0745,1745 HI 05/14/20 17:45 05/15/20 08:36 DC 05/15/20 07:45 Insulin Human Regular (Humulin R U-500 Kwikpen *High Potency*) 120 units BID@45,1744 HI 05/15/20 17:45 05/16/20 10:35 DC 05/16/20 08:58 Insulin Human Regular (Humulin R U-500 Kwikpen *High Potency*) 130 units BID@45,174 HI 05/16/20 17:45 05/20/20 08:28 Isosorbide Mononitrate (Imdur) 60 mg DAILY PO 05/09/20 09:00 05/20/20 08:30 Lactobacillus Acidophilus (Bacid) 1 ea TID PO 05/08/20 16:00 05/20/20 08:30 Lidocaine (Lidoderm Patch) 1 patch QHS TD 05/13/20 21:00 05/18/20 20:47 Magnesium Hydroxide (Milk Of Magnesia) 30 ml DAILYPRN PRN PO CONSTIPATION 05/08/20 11:30 Metolazone (Zaroxolyn) 2.5 mg MoWeFr@0900 PO 05/13/20 09:00 05/14/20 11:34 DC 05/13/20 08:53 Metoprolol Tartrate (Lopressor) 25 mg BID PO 05/08/20 21:00 05/20/20 08:30 Multivitamins (Theragram-M) 1 tab DAILY PO 05/09/20 09:00 05/20/20 08:30 Non-Formulary Medication ( See Comment Field Below ) REMOVE LIDODERM PATCH DAILY@21 XX 05/13/20 21:00 Omeprazole (PriLOSEC) 40 mg BID PO 05/08/20 21:00 05/20/20 08:30 Pen Needle (Bd Autoshield Duo PEN NEEDLE) 1 ea BID@45,5 XX 05/09/20 07:45 05/20/20 08:28 Potassium Chloride (Micro-K Extencaps) 40 meq BID PO 05/08/20 21:00 05/20/20 08:30 Senna (Senokot) 1 tab QHS PO 05/08/20 21:00 05/19/20 20:29 Sitagliptin Phosphate (Januvia) 25 mg DAILY PO 05/16/20 09:45 05/20/20 08:31 Sodium Chloride (Saline Lock Flush) 10 ml ASDIRECTED PRN IV SEE LABEL COMMENTS 05/09/20 18:15 05/18/20 12:09 Sodium Chloride (Saline Lock Flush) 10 ml PICC IV 05/10/20 06:00 05/20/20 05:52 Vancomycin HCl 750 mg/IV Miscellaneous Supplies 15 ml @ 15 mls/hr Q24H IV 05/08/20 11:30 05/08/20 12:37 DC Vancomycin HCl 750 mg/IV Miscellaneous Supplies 1 each/ Dextrose 275 ml @ 275 mls/hr Q24H IV 05/09/20 10:00 05/09/20 09:31 DC Vancomycin HCl 750 mg/IV Miscellaneous Supplies 1 each/ Dextrose 275 ml @ 275 mls/hr Q24H IV 05/09/20 11:00 05/09/20 09:31 DC Vancomycin HCl 750 mg/IV Miscellaneous Supplies 1 each/ Dextrose 275 ml @ 275 mls/hr Q24H IV 05/09/20 16:00 05/11/20 18:00 DC 05/11/20 16:51 Vancomycin HCl 750 mg/IV Miscellaneous Supplies 1 each/ Dextrose 275 ml @ 275 mls/hr Q24H IV 05/09/20 17:00 05/11/20 15:44 DC 05/10/20 17:12 Vancomycin HCl 1000 mg/IV Miscellaneous Supplies 1 each/ Dextrose 270 ml @ 270 mls/hr Q24H IV 05/12/20 12:00 05/12/20 13:05 DC Vancomycin HCl 1000 mg/IV Miscellaneous Supplies 1 each/ Dextrose 270 ml @ 270 mls/hr Q24H IV 05/12/20 17:00 05/13/20 16:47 DC 05/12/20 16:56 Vancomycin HCl 1000 mg/IV Miscellaneous Supplies 1 each/ Dextrose 270 ml @ 270 mls/hr Q24H IV 05/13/20 22:00 05/16/20 12:13 DC 05/15/20 23:16 Vancomycin HCl 1000 mg/IV Miscellaneous Supplies 1 each/ Sodium Chloride 270 ml @ 270 mls/hr Q24H IV 05/17/20 10:00 05/19/20 10:05 Warfarin Sodium (Coumadin) 5 mg DAILY@17 PO 05/09/20 17:00 05/09/20 09:06 DC Warfarin Sodium (Coumadin) 6 mg DAILY@17 PO 05/15/20 17:00 05/18/20 09:03 DC 05/17/20 17:03 Warfarin Sodium (Coumadin) 7.5 mg DAILY@17 PO 05/09/20 17:00 05/15/20 08:36 DC 05/14/20 17:15 EDUARDO OJEDA MD May 20, 2020 09:11
[2020-05-20] MEDS: SODIUM CHLORIDE 0.9% INJ 10 ML SYR IV PRN (09:23)
[2020-05-20] MEDS: VANCOMYCIN HCL 1,000 MG, VIAL MATE ADAPTER 1 EACH in NS 250 ML IV SCH (09:23)
--- NOTE | 2020-05-20 10:03 | DSES ---
DISCHARGE SUMMARY DATE OF ADMISSION: 05/08/2020 DATE OF DISCHARGE: 05/20/2020 CHIEF COMPLAINT/DISCHARGE DIAGNOSIS: L2-L3 discitis with spinal stenosis and peripheral polyneuropathy. HISTORY OF PRESENT ILLNESS: This is a 69-year-old man with a past medical history of hypertension, obesity, CAD, diabetes with peripheral polyneuropathy, diastolic CHF, IgA nephropathy, CKD 4, DVT/PE on Coumadin, MENDEL, and hyperlipidemia who developed right lower and upper extremity weakness and difficulty walking. Presented to [facility] ED on 05/02/2020. Stroke workup was negative, and ultimately he was diagnosed with lumbar discitis with MRI showing "advanced degenerative spondylolysis as above. Severe central spinal stenosis at L2-L3. Moderate spinal stenosis at L3-L4. Fluid signal in the L2-L3 disc space with associated bone marrow edema. Underlying infection/discitis cannot be included." He was evaluated by Infectious Disease and started on IV antibiotics. He underwent an L2-L3 disc biopsy in order to narrow down antibiotic coverage, and his leukocytosis on initial presentation improved during his hospital course while on broad coverage. He had episodes of hyperglycemia and was followed closely by Renal for fluid management in the setting of CKD and CHF. He continued to feel weak with poor endurance in therapy, found to have impairments in mobility and ADLs, and deemed medically appropriate for discharge to ARU on 05/16/2020. PAST MEDICAL HISTORY: As per HPI. HOSPITAL COURSE: Patient was admitted and enrolled in a comprehensive PT/OT program. He received 24 hour nursing supervision, and weekly team meetings were held to discuss his progress. Patient was maintained on a fluid restriction in the setting of diastolic CHF with daily weights and was followed closely by Renal for his fluid management. Patient was maintained on ceftriaxone and vancomycin with initial improvements in his CRP levels. He developed a gout flare up and was started on colchicine and Uloric with resolution of his symptoms. Patient had poorly controlled diabetes during his hospital course. His insulin doses were adjusted, and he was started on Januvia. The solution of vancomycin was switched from D5 to normal saline with modest improvement in his overall glucose levels. He made consistent and functional gains in therapy and was deemed medically and functionally stable to return home. DISCHARGE MEDICATIONS: As per instructions. FUNCTIONAL HISTORY ON DISCHARGE: Patient was modified independent with functional transfers, ambulation, and ADLs. Thank you for this referral.
== END 2020-05-20 12:07 | disposition home health service (06) | DRG 948 ==
LOC: M PM&R 05-08 18:18
PROVIDERS: ADMIT Physical Medicine & Rehabilitation; ATTEND Physical Medicine & Rehabilitation
DX: R53.1 Weakness (principal); I13.0 Hypertensive heart and chronic kidney disease with heart failure and stage 1 through stage 4 chronic kidney disease, or unspecified chronic kidney disease; I50.32 Chronic diastolic (congestive) heart failure; N18.4 Chronic kidney disease, stage 4 (severe); N02.8 Recurrent and persistent hematuria with other morphologic changes; Z68.43 Body mass index [BMI] 50.0-59.9, adult; E87.1 Hypo-osmolality and hyponatremia; N17.9 Acute kidney failure, unspecified; R26.89 Other abnormalities of gait and mobility; Z74.09 Other reduced mobility; E66.9 Obesity, unspecified; I25.10 Atherosclerotic heart disease of native coronary artery without angina pectoris; E11.51 Type 2 diabetes mellitus with diabetic peripheral angiopathy without gangrene; E11.22 Type 2 diabetes mellitus with diabetic chronic kidney disease; G47.33 Obstructive sleep apnea (adult) (pediatric); E78.5 Hyperlipidemia, unspecified; M48.061 Spinal stenosis, lumbar region without neurogenic claudication; Z86.711 Personal history of pulmonary embolism; Z86.718 Personal history of other venous thrombosis and embolism; Z79.01 Long term (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 anticoagulants; Z79.4 Long term (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 insulin; Z79.899 Other long term (current) drug therapy; Z88.8 Allergy status to other drugs, medicaments and biological substances; Z66 Do not resuscitate; M10.30 Gout due to renal impairment, unspecified site; M46.46 Discitis, unspecified, lumbar region; E87.6 Hypokalemia

== ENCOUNTER → 2020-05-27 | Outpatient (REF) | payer MEDICARE, MEDICAID ==
[~2020-05-27] MED LIST changes: +ASPI81TAEC PO; +DIGO0.123 PO; +FEBU40TA2 PO; +GABA-282 PO; -GABA-843 PO; +ISOS1TAB35 PO; +ISOS1TAB36 PO; -ISOS30TA4 PO; -ISOS60TA2 PO; +KLOR10TA76 PO; +MONT10TA10 PO; -MONT5TAB2 PO; +RISATAB3 PO; +SITA50TAB PO; +WARF-20 PO
[2020-05-27 11:51] LABS: BASO % 0.7 % (0.0-1.0); EOS # 0.4 10^3/uL (0.0-0.5); EOS % 7.6 % (0.0-3.0); HEMATOCRIT 41.5 % (42.0-52.0); HEMOGLOBIN 13.5 g/dl (13.5-17.5); LYMPH # 0.7 10^3/uL (1.5-5.0); LYMPH % 12.5 % (24.0-44.0); MEAN CORPUSCULAR HEMOGLOBIN 32.5 pg (27.0-33.0); MEAN CORPUSCULAR HGB CONC 32.5 g/dl (32.0-36.5); MEAN CORPUSCULAR VOLUME 99.8 fl (80.0-96.0); MONO # 0.4 10^3/uL (0.0-0.8); MONO % 6.5 % (0.0-5.0); NEUTROPHILS % 72.3 % (36.0-66.0); PLATELET COUNT, AUTOMATED 148 10^3/uL (150-450); RED BLOOD COUNT 4.16 10^6/uL (4.30-6.10); WHITE BLOOD COUNT 5.5 10^3/uL (4.0-10.0)
[2020-05-27 12:32] LABS: ERYTHROCYTE SEDIMENTATION RATE 65 mm/hr (0-20)
[2020-05-27 12:39] LABS: BILIRUBIN,TOTAL 0.7 MG/DL (0.2-1.0); C REACTIVE PROTEIN QUANTITATIV 5.04 MG/DL (0.00-0.30); CALCIUM LEVEL 8.8 MG/DL (8.8-10.2); CREATININE FOR GFR 1.95 MG/DL (0.70-1.30); GLOMERULAR FILTRATION RATE 36.7 (>49); POTASSIUM SERUM 4.6 MEQ/L (3.5-5.1); TOTAL PROTEIN 6.4 GM/DL (6.4-8.2); VANCOMYCIN LEVEL TROUGH 7.8 UG/ML (10.0-20.0)
== END ==
LOC: M SHH 10:41
PROVIDERS: ATTEND Physical Medicine & Rehabilitation
DX: M46.40 Discitis, unspecified, site unspecified (principal)
CPT/HCPCS: 80053; 80202; 85025; 85652; 86140; G0463

== ENCOUNTER → 2020-05-30 | Outpatient (REF) | payer MEDICARE, MEDICAID ==
[~2020-05-30] MED LIST changes: -ISOS1TAB35 PO; -ISOS1TAB36 PO; +ISOS30TA4 PO; +ISOS60TA2 PO; -MONT10TA10 PO; +MONT5TAB2 PO
[2020-05-30 11:23] LABS: BASO # 0.1 10^3/uL (0.0-0.2); EOS # 0.4 10^3/uL (0.0-0.5); HEMATOCRIT 42.7 % (42.0-52.0); HEMOGLOBIN 13.8 g/dl (13.5-17.5); LYMPH # 2.1 10^3/uL (1.5-5.0); LYMPH % 25.8 % (24.0-44.0); MEAN CORPUSCULAR HEMOGLOBIN 31.9 pg (27.0-33.0); MEAN CORPUSCULAR HGB CONC 32.3 g/dl (32.0-36.5); MEAN CORPUSCULAR VOLUME 98.6 fl (80.0-96.0); MONO # 0.6 10^3/uL (0.0-0.8); NEUTROPHILS % 60.7 % (36.0-66.0); PLATELET COUNT, AUTOMATED 208 10^3/uL (150-450); RED BLOOD COUNT 4.33 10^6/uL (4.30-6.10); WHITE BLOOD COUNT 8.3 10^3/uL (4.0-10.0)
[2020-05-30 11:43] LABS: ERYTHROCYTE SEDIMENTATION RATE 56 mm/hr (0-20)
[2020-05-30 12:07] LABS: ALBUMIN 3.3 GM/DL (3.2-5.2); BILIRUBIN,TOTAL 0.5 MG/DL (0.2-1.0); C REACTIVE PROTEIN QUANTITATIV 1.49 MG/DL (0.00-0.30); CALCIUM LEVEL 9.4 MG/DL (8.8-10.2); CREATININE FOR GFR 2.15 MG/DL (0.70-1.30); GLOMERULAR FILTRATION RATE 32.8 (>49); POTASSIUM SERUM 3.8 MEQ/L (3.5-5.1); VANCOMYCIN LEVEL TROUGH 9.5 UG/ML (10.0-20.0)
== END ==
LOC: M SHH 10:53
PROVIDERS: ATTEND Physical Medicine & Rehabilitation
DX: M46.40 Discitis, unspecified, site unspecified (principal)

== ENCOUNTER → 2020-06-07 | Outpatient (REF) | payer MEDICARE, MEDICAID ==
[~2020-06-07] MED LIST changes: +ISOS1TAB35 PO; +ISOS1TAB36 PO; -ISOS30TA4 PO; -ISOS60TA2 PO; +MONT10TA10 PO; -MONT5TAB2 PO
[2020-06-07 10:02] LABS: BASO # 0.1 10^3/uL (0.0-0.2); BASO % 0.6 % (0.0-1.0); EOS # 0.4 10^3/uL (0.0-0.5); EOS % 5.4 % (0.0-3.0); HEMATOCRIT 44.3 % (42.0-52.0); HEMOGLOBIN 14.4 g/dl (13.5-17.5); LYMPH # 1.2 10^3/uL (1.5-5.0); MEAN CORPUSCULAR HEMOGLOBIN 32.1 pg (27.0-33.0); MEAN CORPUSCULAR HGB CONC 32.5 g/dl (32.0-36.5); MEAN CORPUSCULAR VOLUME 98.7 fl (80.0-96.0); MONO # 0.5 10^3/uL (0.0-0.8); MONO % 5.6 % (0.0-5.0); NEUTROPHILS # 5.8 10^3/uL (1.5-8.5); PLATELET COUNT, AUTOMATED 216 10^3/uL (150-450); RED BLOOD COUNT 4.49 10^6/uL (4.30-6.10)
[2020-06-07 10:28] LABS: ERYTHROCYTE SEDIMENTATION RATE 45 mm/hr (0-20)
[2020-06-07 10:45] LABS: ALBUMIN 3.1 GM/DL (3.2-5.2); BILIRUBIN,TOTAL 1.2 MG/DL (0.2-1.0); C REACTIVE PROTEIN QUANTITATIV 2.05 MG/DL (0.00-0.30); CALCIUM LEVEL 10.3 MG/DL (8.8-10.2); CREATININE FOR GFR 2.05 MG/DL (0.70-1.30); GLOMERULAR FILTRATION RATE 34.7 (>49); POTASSIUM SERUM 4.8 MEQ/L (3.5-5.1); TOTAL PROTEIN 6.8 GM/DL (6.4-8.2); VANCOMYCIN LEVEL TROUGH 12.6 UG/ML (10.0-20.0)
== END ==
LOC: M SHH 09:35
PROVIDERS: ATTEND Physical Medicine & Rehabilitation
DX: M46.40 Discitis, unspecified, site unspecified (principal)

== ENCOUNTER → 2020-07-09 | Outpatient (REF) | payer MEDICARE, MEDICAID ==
[~2020-07-09] MED LIST changes: +ASPI-569 PO; -ASPI81TAEC PO
[2020-07-09 17:42] LABS: BASO # 0.1 10^3/uL (0.0-0.2); BASO % 0.6 % (0.0-1.0); EOS # 0.3 10^3/uL (0.0-0.5); HEMATOCRIT 43.1 % (42.0-52.0); HEMOGLOBIN 14.2 g/dl (13.5-17.5); LYMPH # 1.6 10^3/uL (1.5-5.0); LYMPH % 16.6 % (24.0-44.0); MEAN CORPUSCULAR HEMOGLOBIN 32.5 pg (27.0-33.0); MEAN CORPUSCULAR HGB CONC 32.9 g/dl (32.0-36.5); MEAN CORPUSCULAR VOLUME 98.6 fl (80.0-96.0); MONO # 0.9 10^3/uL (0.0-0.8); MONO % 9.4 % (2.0-8.0); NEUTROPHILS # 6.6 10^3/uL (1.5-8.5); NEUTROPHILS % 70.1 % (36.0-66.0); PLATELET COUNT, AUTOMATED 173 10^3/uL (150-450); RED BLOOD COUNT 4.37 10^6/uL (4.30-6.10); WHITE BLOOD COUNT 9.4 10^3/uL (4.0-10.0)
[2020-07-09 18:03] LABS: C REACTIVE PROTEIN QUANTITATIV 1.67 MG/DL (0.00-0.30); CALCIUM LEVEL 8.8 MG/DL (8.8-10.2); CREATININE FOR GFR 1.83 MG/DL (0.70-1.30); GLOMERULAR FILTRATION RATE 39.5 (>49); POTASSIUM SERUM 3.7 MEQ/L (3.5-5.1)
[2020-07-09 18:39] LABS: ERYTHROCYTE SEDIMENTATION RATE 60 mm/hr (0-20)
== END ==
LOC: M SFHCPLAZ 14:58
PROVIDERS: ATTEND Internal Medicine Infectious Disease
DX: M46.46 Discitis, unspecified, lumbar region (principal)
CPT/HCPCS: 36415; 80048; 85025; 85652; 86140; G0463

== ENCOUNTER → 2020-09-04 | Outpatient (REF) | payer MEDICARE, MEDICAID ==
[2020-09-04 18:13] LABS: CREATININE, URINE 22.2 MG/DL; MALB URINE SIEMENS < 5.0 MG/L; MAU/CREAT RATIO 22.5 MCG/MG (0.0-30.0)
== END ==
LOC: M LAB REF 16:52
PROVIDERS: ATTEND Internal Medicine
DX: E11.22 Type 2 diabetes mellitus with diabetic chronic kidney disease (principal)

== ENCOUNTER → 2020-10-16 | Outpatient (REF) | payer MEDICARE, MEDICAID ==
[2020-10-16 11:33] LABS: CHOLESTEROL RISK RATIO 3.794 (<5)
== END ==
LOC: M PLALAB 09:50
PROVIDERS: ATTEND Nurse Practitioner Family
DX: E78.2 Mixed hyperlipidemia (principal)

== ENCOUNTER 2020-12-16 11:58 | Inpatient (IN) | payer MEDICARE, MEDICAID ==
[~2020-12-16] VITALS: Ht 172.7 cm; Wt 145.1 kg
[~2020-12-16 11:58] MED LIST changes: +OMEP40CA4 PO; -OMEP40CA97 PO
--- NOTE | 2020-12-16 13:42 | REP ---
INDICATION: CHEST PAIN. COMPARISON: 05/02/2020. TECHNIQUE: Single portable AP view of the chest was performed. FINDINGS: Cardiac silhouette is mildly prominent and is probably magnified. There is mild chronic interstitial prominence with no acute infiltrate. There is calcification of the thoracic aorta. The mediastinal silhouette is unchanged. IMPRESSION: No acute pulmonary disease. <Electronically signed by Weston Lang > 12/16/20 [id number]
[2020-12-16 14:59] LABS: BASO % 0.2 % (0.0-1.0); EOS # 0.1 10^3/uL (0.0-0.5); EOS % 0.4 % (0.0-3.0); HEMATOCRIT 47.6 % (42.0-52.0); HEMOGLOBIN 15.9 g/dl (13.5-17.5); LYMPH # 0.9 10^3/uL (1.5-5.0); LYMPH % 6.6 % (24.0-44.0); MEAN CORPUSCULAR HEMOGLOBIN 30.5 pg (27.0-33.0); MEAN CORPUSCULAR HGB CONC 33.4 g/dl (32.0-36.5); MEAN CORPUSCULAR VOLUME 91.4 fl (80.0-96.0); MONO # 1.2 10^3/uL (0.0-0.8); MONO % 8.4 % (2.0-8.0); NEUTROPHILS # 11.5 10^3/uL (1.5-8.5); NEUTROPHILS % 83.6 % (36.0-66.0); PLATELET COUNT, AUTOMATED 199 10^3/uL (150-450); RED BLOOD COUNT 5.21 10^6/uL (4.30-6.10); WHITE BLOOD COUNT 13.7 10^3/uL (4.0-10.0)
[2020-12-16 15:39] LABS: ALBUMIN 3.3 GM/DL (3.2-5.2); ALT/SGPT 111 U/L (12-78); BILIRUBIN,DIRECT 0.7 MG/DL (0.0-0.2); BILIRUBIN,TOTAL 1.5 MG/DL (0.2-1.0); CK-MB VALUE MASS < 1.0 NG/ML (<3.6); CPK CREATINE PHOSPHOKINASE 123 U/L (39-308); FREE T4 1.47 NG/DL (0.76-1.46); LIPASE 5174 U/L (73-393); MB/CK RELATIVE INDEX 0.81 (< OR =4); NT-PRO BNP 518 PG/ML (<125); TOTAL PROTEIN 7.4 GM/DL (6.4-8.2); TROPONIN I < 0.02 NG/ML (< 0.10)
[2020-12-16] MEDS ORDERED: DEXTROSE 50% 50 ML SYRINGE IV STA ×2 (16:05→16:26)
[2020-12-16] MEDS ORDERED: DEXTROSE 50% 50 ML SYRINGE As Ordered ONE (16:05)
--- NOTE | 2020-12-16 16:14 | REP ---
INDICATION: chest and abdominal pain; cr=2.3. COMPARISON: 07/27/2019. TECHNIQUE: CT chest performed without the use of intravenous contrast. Sagittal and coronal reconstruction images are performed. FINDINGS: Lungs: Clear, no infiltrate or nodule. Mediastinum: No gross adenopathy. Tete: No gross adenopathy. Axilla: No gross adenopathy. Pleura: No effusion. Heart: Not enlarged. Thoracic aorta: No aneurysm. There is bilateral gynecomastia. Visualized osseous structures: There are degenerative changes of the spine without compression deformity. IMPRESSION: Unremarkable noncontrast CT chest. <Electronically signed by Weston Lang > 12/16/20 [id number]
[2020-12-16] MEDS ORDERED: NS 1,000 ML IV ONE (16:20)
--- NOTE | 2020-12-16 16:23 | REP ---
INDICATION: chest and abdominal pain; cr=2.3 COMPARISON: 01/23/2020. TECHNIQUE: CT Scan of the abdomen and pelvis was performed without intravenous contrast. Sagittal and coronal reconstruction images performed. FINDINGS: Liver: Grossly unremarkable. Gallbladder: Unremarkable. Spleen: Grossly unremarkable. Adrenals: Normal. Pancreas: There is diffuse hazy density in the peripancreatic fat suggesting pancreatitis... Kidneys: No hydronephrosis or nephrolithiasis. Ureters demonstrate no dilatation or calculus. There are bilateral renal cysts which are exophytic, the largest is on the left measuring 6.5 cm in maximum diameter. Small and large bowel: There are diverticula of the left and sigmoid colon without evidence of acute diverticulitis. Free fluid: None. Abdominal aorta: No aneurysm. Adenopathy: None. Appendix: Not inflamed. Osseous structures: There are degenerative changes of the spine without compression deformity. Pelvis: No mass. No bladder calculus seen. IMPRESSION: There are findings compatible with pancreatitis. No free fluid or fluid collection. <Electronically signed by Weston Lang > 12/16/20 [id number]
--- NOTE | 2020-12-16 16:59 | REP ---
INDICATION: abdominal pain,elev lfts, lipase. COMPARISON: CT today. TECHNIQUE: Real-time sonographic evaluation of right upper quadrant performed. FINDINGS: There are 2 gallstones seen in the gallbladder measuring 9 and 10 mm in diameter. There is no gallbladder wall thickening or pericholecystic fluid.. There is no intrahepatic or extrahepatic biliary dilatation, common bile duct measures 4 mm in maximum diameter. The liver demonstrates homogeneous echotexture with no gross mass. Pancreas is not well seen due to overlying bowel gas. The right kidney demonstrates no hydronephrosis, with a normal size of 10.4 cm in length. A cyst of the lower pole of the right kidney measures 2.7 x 2.4 x 1.8 cm.No free fluid is seen. IMPRESSION: Two gallstones in the gallbladder measuring 9 and 10 mm in diameter, with no gallbladder wall thickening, pericholecystic fluid or biliary dilatation. <Electronically signed by Weston Lang > 12/16/20 [id number]
[2020-12-16] MEDS ORDERED: ACETAMINOPHEN TAB 650MG DOSE (2X325MG) PO PRN (17:05)
[2020-12-16] MEDS ORDERED: POTASSIUM CHLORIDE 10 MEQ SR TABLET PO ONE (17:10)
[2020-12-16] MEDS ORDERED: D5W/0.9% SODIUM CHLORIDE 1,000 ML IV SCH (17:10)
[2020-12-16] MEDS ORDERED: GLUCAGON INJ 1MG VIAL SC PRN (17:10)
[2020-12-16] MEDS ORDERED: GLUCOSE 4GM CHEW TABLET PO PRN (17:10)
[2020-12-16] MEDS ORDERED: DEXTROSE 50% 50 ML SYRINGE IV PRN (17:10)
[2020-12-16 17:42] LABS: INR 2.41; PROTHROMBIN TIME 26.6 SECONDS (12.7-14.5)
[2020-12-16] MEDS ORDERED: HUMU500S2 SC (18:02)
[2020-12-16] MEDS ORDERED: JANT7.5T PO (18:02)
[2020-12-16] MEDS ORDERED: MONT10TA10 PO (18:02)
[2020-12-16] MEDS ORDERED: OMEP-221 PO (18:02)
[2020-12-16] MEDS ORDERED: POTA1TAB14 PO (18:02)
[2020-12-16] MEDS ORDERED: FEBU40TA4 PO (18:02)
[2020-12-16] MEDS ORDERED: ALLO300T2 PO (18:02)
[2020-12-16] MEDS ORDERED: AMIL5TAB4 PO (18:02)
[2020-12-16] MEDS ORDERED: JANU25TA PO (18:02)
[2020-12-16] MEDS ORDERED: GABA-282 PO (18:02)
[2020-12-16] MEDS ORDERED: DIGO0.123 PO (18:02)
[2020-12-16] MEDS ORDERED: PLAV1TAB2 PO (18:02)
[2020-12-16] MEDS ORDERED: JANT5TAB PO (18:02)
[2020-12-16] MEDS ORDERED: POTA20TA6 PO (18:02)
[2020-12-16] MEDS ORDERED: RISATAB3 PO (18:02)
[2020-12-16] MEDS ORDERED: BUME1TAB3 PO (18:02)
[2020-12-16] MEDS ORDERED: ATOR80TA59 PO (18:02)
[2020-12-16] MEDS ORDERED: METO1TAB33 PO (18:02)
[2020-12-16] MEDS ORDERED: ISOS1TAB36 PO (18:02)
[2020-12-16] MEDS ORDERED: ASPI81TA26 PO (18:02)
[2020-12-16] MEDS ORDERED: METO25TA PO (18:03)
[2020-12-16] MEDS ORDERED: HOME MED LIST COMPLETE! XX SCH (18:05)
[2020-12-16 18:09] LABS: RSV AMPLIFICATION NEGATIVE (NEGATIVE)
[2020-12-16] MEDS: HumaLOG INSULIN (NovoLOG) PER UNIT SC SCH ×2 (18:13→22:18)
[2020-12-16 18:33] LABS: BLOOD UREA NITROGEN 43 MG/DL (7-18); CALCIUM LEVEL 9.2 MG/DL (8.8-10.2); CARBON DIOXIDE LEVEL 30 MEQ/L (21-32); CHLORIDE LEVEL 99 MEQ/L (98-107); CHOLESTEROL LEVEL 148 MG/DL (<200); CHOLESTEROL RISK RATIO 3.794 (<5); CREATININE FOR GFR 2.28 MG/DL (0.70-1.30); GLOMERULAR FILTRATION RATE 30.6 (>49); GLUCOSE, FASTING 42 MG/DL (70-100); HDL CHOLESTEROL 39 MG/DL (>40); LDL CHOLESTEROL 89 MG/DL (<100); NON-HDL-C 109 MG/DL; POTASSIUM SERUM 3.8 MEQ/L (3.5-5.1); SODIUM LEVEL 137 MEQ/L (136-145); TRIGLYCERIDES LEVEL 102 MG/DL (<150)
--- NOTE | 2020-12-16 18:50 | HPEPDOC ---
General Date of Admission Dec 16, 2020 at 17:01 Date of Service: Dec 16, 2020 Chief Complaint The patient is a 70-year-old male admitted with a reason for visit of Acute Pancreatitis, Chest Pain. Source: Patient History of Present Illness Mr. Galindo is a 70 year old male with DM type 2 complicated by diabetic neuropathy, CAD, and hypertension who presents with chest and abdominal pain and found to have acute pancreatitis. He was in good health. Denies any new medications or recent alcohol. evening after supper, he became nauseous and had copious amounts of vomiting. Denies any blood. Afterwards, he started to have both chest pain and abdominal pain. Chest pain was substernal steady pressure. Rated 8/10. It comes and goes and would last for a couple of minutes. These would occur at rest and ambulation would not make them worse. He also had abdominal pain that is a sharp 8/10 pain. Better when he is staying still. Would last about a minute. Since that day, the pain would intermittently come and go. In addition, he had lost his appetite. Since he was not improving, he came to the ED for evaluation. While here, vital signs were stable. No fever or tachyc ardia. Blood pressure acceptable. He is doing well at room air. He was found to be hypoglycemic at 39. He was given 2 amps of D50 which improved his blood glucose. Initial troponin was negative. Lipase was elevated at 5174. T.bili elevated at 1.5, AST 60, and ALT 111. Gallbladder US demonstrated 2 gallstones, but no biliary dilatation. When I saw patient, he appears comfortable. No pain while resting, but pain with deep breathing. Still no appetite. Patient will be admitted to the PCU for acute pancreatitis. Home Medications Scheduled Amiloride HCl (Amiloride HCl) 5 Mg Tablet, 10 MG PO BID, (Reported) Aspirin (Aspirin EC) 81 Mg Tablet.dr, 81 MG PO DAILY, (Reported) Atorvastatin Calcium (Atorvastatin Calcium) 80 Mg Tablet, 80 MG PO DAILY, (Reported) Bumetanide (Bumetanide) 1 Mg Tablet, 3 MG PO BID, (Reported) 2ND @ 1600 Calcium Carbonate/Vitamin D3 (Calcium 600-Vit D3 400 Tablet) 1 Tab Tab, 1 TAB PO DAILY, (Reported) Clopidogrel Bisulfate (Plavix) 75 Mg Tablet, 75 MG PO DAILY, (Reported) Digoxin (Digoxin) 125 Mcg Tablet, 125 MCG PO DAILY, (Reported) Dulaglutide (Trulicity) 1.5 Mg/0.5 Ml Inj, 1.5 MG SC 1XWK, (Reported) WEDNESDAY Febuxostat (Uloric) 40 Mg Tablet, 40 MG PO DAILY, (Reported) Gabapentin (Gabapentin) 300 Mg Capsule, 300 MG PO TID, (Reported) Insulin Human Lispro (Humalog) 1 Units/0.01 Ml Inj, 1 DOSE SC BIDWM, (Reported) PER SLIDING SCALE Insulin Human Regular (Humulin R U-500 Kwikpen) 500 Unit/1 Ml Insuln.pen, 80 UNIT SC BID, (Reported) Isosorbide Mononitrate (Isosorbide Mononitrate ER) 60 Mg Tab.er.24h, 60 MG PO DAILY, (Reported) L.acidoph/L.bulg/B.bif/S.therm (Felicita-Bid Caplet) 1 Each Tablet, 1 TAB PO BID, (Reported) Magnesium Oxide (Magnesium Oxide) 500 Mg Tablet, 1,000 MG PO BID, (Reported) Metolazone (Metolazone) 2.5 Mg Tablet, 2.5 MG PO 3XW, (Reported) QAM - WED,WED,FRI Metoprolol Succinate (Metoprolol Succinate) 100 Mg Tab.er.24h, 100 MG PO DAILY, (Reported) Montelukast Sodium (Montelukast Sodium) 10 Mg Tablet, 10 MG PO QHS, (Reported) Multivitamins (Thera M Plus Tablet) 1 Each Tablet, 1 TAB PO DAILY, (Reported) [place]-3/Dha/Epa/Fish Oil (Fish Oil 1,000 mg Softgel) 1 Each Capsule, 2,000 MG PO DAILY, (Reported) Omeprazole (Omeprazole) 40 Mg Capsule.dr, 40 MG PO BID, (Reported) Potassium Chloride (Potassium Chloride) 20 Meq Tablet.er, 60 MEQ PO BID, (Reported) Potassium Chloride (Potassium Chloride) 20 Meq Tab.er.prt, 40 MEQ PO 3XW, (Reported) WED, WED, FRI @ LUNCH Sitagliptin Phosphate (Januvia) 25 Mg Tablet, 25 MG PO DAILY, (Reported) Warfarin Sodium (Jantoven) 7.5 Mg Tablet, 7.5 MG PO 6XWK, (Reported) @ QHS -MON, TUES, WED, THUR, SAT, SUN Warfarin Sodium (Jantoven) 5 Mg Tablet, 10 MG PO 1XWK, (Reported) @ QHS ON FRI. allopurinoL (allopurinoL) 300 Mg Tablet, 300 MG PO DAILY, (Reported) Scheduled PRN Nitroglycerin (Nitroglycerin) 0.4 Mg Sub, 0.4 MG SL NITRO PRN for CHEST PAIN, (R eported) Allergies Coded Allergies: DANIELA Inhibitors (Verified Allergy, Intermediate, RASH, 05/03/20) spironolactone (Verified Adverse Reaction, Intermediate, gynecomastia, 05/03/20) Past Medical History Medical History 1. CKD stage 4 2. IGA nephropathy 3. Hypertension 4. Hyperlipidemia 5. 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 MENDEL on CPAP 7. GERD 8. DVT 9. Kidney disease 10. Lupus drug rash 11. Atrial fibrillation on warfarin Surgical History 1. Cardiac cath in 2014 2. Cataract, right eye, 2015 3. Cardiac cath 2019 Family History Father: at 69 yo, history of MO Mother: at 63 yo, history of DM type 2 and MO Social History * Smoker: former Smoker (quit 25 years ago) Alcohol: sober Drugs: denies A-FIB/CHADSVASC A-FIB History Current/History of A-Fib/PAF?: Yes Current PO Anticoag Therapy: Yes Treatment Treatment ordered: Warfarin Review of Systems Constitutional: Reports: Chills; Denies: Fever Eyes: Denies: Vision change ENT: Denies: Sore Throat Skin: Denies: Rash Pulmonary: Reports: Dyspnea (Chronic, about the same); Denies: Cough Cardiovascular: Reports: Chest Pain (Intermittent) Gastrointestinal: Reports: Nausea, Vomiting, Abdominal Pain (Intermittent); Denies: Diarrhea, Constipation Genitourinary: Denies: Dysuria Hematologic: Denies: Bruising Neurological: Reports: Other Symptoms (Neuropathy in feet bilaterally) Psych: Denies: Anxiety, Depression Physical Examination General Exam: Positive: Alert, Cooperative Eye Exam: Positive: EOMI; Negative: Sclera icteric ENT Exam: Positive: Atraumatic Neck Exam: Positive: Supple Chest Exam: Positive: Clear to auscultation; Negative: Rales, Rhonchi, Wheezing Heart Exam: Positive: Rate Normal, Regular Rhythm Abdomen Exam: Positive: Normal bowel sounds, Soft, Tenderness Extremity Exam: Negative: Edema Neuro Exam: Positive: Normal Speech, Cranial Nerves 3-12 NL Psych Exam: Positive: Mental status NL, Mood NL Vital Signs Vital Signs Date Time Temp Pulse Resp B/P (MAP) Pulse Ox O2 Delivery O2 Flow Rate FiO2 12/16/20 15:15 119/58 (78) 12/16/20 15:13 71 93 12/16/20 12:00 97.1 22 Room Air Laboratory Data Labs 24H Laboratory Tests 2 12/16/20 13:55: Immature Granulocyte % (Auto) 0.8, Neutrophils (%) (Auto) 83.6H, Lymphocytes (%) (Auto) 6.6L, Monocytes (%) (Auto) 8.4H, Eosinophils (%) (Auto) 0.4, Basophils (%) (Auto) 0.2, Neutrophils # (Auto) 11.5H, Lymphocytes # (Auto) 0.9L, Monocytes # (Auto) 1.2H, Eosinophils # (Auto) 0.1, Basophils # (Auto) 0.0, Nucleated Red Blood Cells % (auto) 0.0, Urine Color STRAW, Urine Appearance CLEAR, Urine pH 8.0, Urine Specific [place] 1.005, Urine Protein NEGATIVE, Urine Glucose (UA) NEGATIVE, Urine Ketones NEGATIVE, Urine Blood NEGATIVE, Urine Nitrite NEGATIVE, Urine Bilirubin NEGATIVE, Urine Urobilinogen 0.2, Urine Leukocyte Esterase NE GATIVE, Urine WBC (Auto) 1, Urine RBC (Auto) 1, Urine Hyaline Casts (Auto) 0, Urine Bacteria (Auto) NEGATIVE, Urine Squamous Epithelial Cells 0, Urine Sperm (Auto) , Total Bilirubin 1.5H, Direct Bilirubin 0.7H, Aspartate Amino Transf (AST/SGOT) 60H, Alanine Aminotransferase (ALT/SGPT) 111H, Alkaline Phosphatase 177H, Total Creatine Kinase 123, Creatine Kinase MB < 1.0, Creatine Kinase MB Relative Index 0.81, Troponin I < 0.02, GW-Iru-A-Type Natriuretic Peptide 518H, Total Protein 7.4, Albumin 3.3, Albumin/Globulin Ratio 0.8, Lipase 5174H, Thyroid Stimulating Hormone (TSH) 1.260, Free Thyroxine 1.47H 12/16/20 14:50: POC Glucose (Misc Panel) 46L, POC Sodium (Misc Panel) 138, POC Potassium (Misc Panel) 3.6, POC Chloride (Misc Panel) 98, POC Total CO2 (Misc Panel) 27.0, POC Blood Urea Nitrogen (Misc Panel 44H, POC Ionized Calcium (Misc Panel) 4.5, POC Creatinine (Misc Panel) 2.3H, POC Hematocrit (Misc Panel) 49.0 12/16/20 16:06: Bedside Glucose (Misc Panel) 39*L 12/16/20 16:25: Bedside Glucose (Misc Panel) 84 12/16/20 16:43: Bedside Glucose (Misc Panel) 130H CBC/BMP Laboratory Tests 12/16/20 13:55 Microbiology Microbiology 12/16/20 Blood Culture, Received Pending 12/16/20 Blood Culture, Received Pending Assessment/Plan Mr. Galindo is a 70 year old male with DM type 2 complicated by diabetic neuropathy, CAD, and hypertension who presents with chest and abdominal pain and found to have acute pancreatitis. Unclear etiology. Patient denies alcohol and US gallbladder is negative for biliary duct dilatation. Patient has mild l eukocytosis, but no other signs of infection. UA negative. Blood cultures x2 pending. Will order triglyceride level as a potential cause. Otherwise, patient will be made NPO except medication and started on IVF. Since he was hypoglycemic, will put him on D5W/0.9NS. If patient does have hypertriglyceridemia, patient will need insulin (either subQ or IV). Otherwise, will need to monitor potassium. Plan / VTE VTE Prophylaxis Ordered?: Yes Plan Plan 1. Acute pancreatitis -Unknown etiology -Lipid panel ordered to look for triglycerides -NPO and IVF 2. Hypoglycemia -Most likely from poor appetite and insulin usage -Patient will have D5W added to the fluids -Monitor FSBS 3. DM type 2 -Sliding scale insulin. Patient will be on D5W 4. CAD -Intermittent chest pain -1st troponin negative. Will recheck a second troponin -Continue Aspirin, Plavix, and Toprol XL -Hold atorvastatin and Imdur 5. Paroxysmal atrial fibrillation -Continue digoxin and Toprol XL -Continue Warfarin -Check PT/INR daily and adjust 6. Diastolic dysfunction -Echocardiogram 04/2020 demonstrated EF 55 to 60%. Grade 1 diastolic dysfunction -Hold amiloride, bumetanide, and metolazone 7. CKD stage 4 -Baseline creatinine around 1.8 to 2 -Current creatinine 2 -Patient will be receiving fluids for acute pancreatitis, will need to be mindful of fluid status 8. History of gout -Continue allopurinol and febuxostat 9. DVT ppx -On warfarin Disposition: Pending improvement in appetite THELMA TIERNEY DO Dec 16, 2020 17:52
[2020-12-16] MEDS ORDERED: WARFARIN SOD 5MG TAB PO ONE (19:00)
[2020-12-16] MEDS ORDERED: NS 1,000 ML IV SCH (19:05)
--- NOTE | 2020-12-16 19:59 | ECGEPIP ---
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
[2020-12-16 20:36] LABS: BLOOD UREA NITROGEN 45 MG/DL (7-18); CALCIUM LEVEL 9.2 MG/DL (8.8-10.2); CARBON DIOXIDE LEVEL 35 MEQ/L (21-32); CHLORIDE LEVEL 100 MEQ/L (98-107); CREATININE FOR GFR 2.22 MG/DL (0.70-1.30); GLOMERULAR FILTRATION RATE 31.5 (>49); GLUCOSE, FASTING 89 MG/DL (70-100); POTASSIUM SERUM 4.1 MEQ/L (3.5-5.1); SODIUM LEVEL 140 MEQ/L (136-145); TROPONIN I < 0.02 NG/ML (< 0.10)
[2020-12-16 21:30] VITALS: BP 143/60
[2020-12-16] MEDS: GABAPENTIN 300 MG CAP PO SCH (22:14)
[2020-12-16] MEDS: PANTOPRAZOLE 40MG VIAL (C9113 PER 1) IV SCH (22:15)
[2020-12-16] MEDS: D5W/0.9% SODIUM CHLORIDE 1,000 ML IV SCH (23:50)
[2020-12-17] VITALS: BP 124/57
[2020-12-17] MEDS: HumaLOG INSULIN (NovoLOG) PER UNIT SC SCH ×6 (01:00→20:33)
[2020-12-17 04:00] VITALS: BP 122/56
[2020-12-17 05:41] LABS: BASO % 0.4 % (0.0-1.0); EOS # 0.2 10^3/uL (0.0-0.5); HEMATOCRIT 43.6 % (42.0-52.0); HEMOGLOBIN 14.3 g/dl (13.5-17.5); LYMPH # 0.9 10^3/uL (1.5-5.0); LYMPH % 9.9 % (24.0-44.0); MEAN CORPUSCULAR HEMOGLOBIN 30.3 pg (27.0-33.0); MEAN CORPUSCULAR HGB CONC 32.8 g/dl (32.0-36.5); MEAN CORPUSCULAR VOLUME 92.4 fl (80.0-96.0); MONO # 0.7 10^3/uL (0.0-0.8); MONO % 7.8 % (2.0-8.0); NEUTROPHILS # 7.6 10^3/uL (1.5-8.5); NEUTROPHILS % 79.4 % (36.0-66.0); PLATELET COUNT, AUTOMATED 165 10^3/uL (150-450); RED BLOOD COUNT 4.72 10^6/uL (4.30-6.10); WHITE BLOOD COUNT 9.5 10^3/uL (4.0-10.0)
[2020-12-17 05:54] LABS: PROTHROMBIN TIME 26.4 SECONDS (12.7-14.5)
[2020-12-17 05:55] LABS: INR 2.39
[2020-12-17 06:07] LABS: ALBUMIN 2.7 GM/DL (3.2-5.2); BILIRUBIN,TOTAL 1.4 MG/DL (0.2-1.0); CALCIUM LEVEL 8.7 MG/DL (8.8-10.2); CREATININE FOR GFR 2.03 MG/DL (0.70-1.30); GLOMERULAR FILTRATION RATE 34.9 (>49); POTASSIUM SERUM 3.8 MEQ/L (3.5-5.1); TOTAL PROTEIN 6.3 GM/DL (6.4-8.2)
[2020-12-17 07:45] VITALS: BP 140/65
[2020-12-17] MEDS: D5W/0.9% SODIUM CHLORIDE 1,000 ML IV SCH ×3 (07:49→19:49)
[2020-12-17] MEDS: METOPROLOL SUCC (TopROL XL) 100MG *XL* TAB PO SCH (08:50)
[2020-12-17] MEDS: GABAPENTIN 300 MG CAP PO SCH ×3 (08:50→20:34)
[2020-12-17] MEDS: ASPIRIN 81MG ENTERIC TABLET PO SCH (08:51)
[2020-12-17] MEDS: DIGOXIN 0.125 MG TAB PO SCH (08:51)
[2020-12-17] MEDS: FEBUXOSTAT 40 MG TABLET (ULORIC) PO SCH (08:51)
[2020-12-17] MEDS: allopurinoL 300 MG TAB PO SCH (08:51)
[2020-12-17] MEDS: CLOPIDOGREL 75 MG TAB PO SCH (08:51)
[2020-12-17 12:51] VITALS: BP 129/60
[2020-12-17 20:00] VITALS: BP 138/55
[2020-12-17] MEDS: PANTOPRAZOLE 40MG VIAL (C9113 PER 1) IV SCH (20:35)
[2020-12-17] MEDS ORDERED: WARFARIN SOD 5MG TAB PO ONE (21:00)
[2020-12-18] VITALS: BP 134/63
[2020-12-18] MEDS: D5W/0.9% SODIUM CHLORIDE 1,000 ML IV SCH ×2 (02:09→08:52)
[2020-12-18 04:00] VITALS: BP 140/76
[2020-12-18 05:50] LABS: BASO % 0.5 % (0.0-1.0); EOS # 0.4 10^3/uL (0.0-0.5); EOS % 4.2 % (0.0-3.0); HEMATOCRIT 43.7 % (42.0-52.0); HEMOGLOBIN 14.3 g/dl (13.5-17.5); LYMPH % 11.4 % (24.0-44.0); MEAN CORPUSCULAR HEMOGLOBIN 30.4 pg (27.0-33.0); MEAN CORPUSCULAR HGB CONC 32.7 g/dl (32.0-36.5); MEAN CORPUSCULAR VOLUME 92.8 fl (80.0-96.0); MONO # 0.7 10^3/uL (0.0-0.8); MONO % 8.2 % (2.0-8.0); NEUTROPHILS # 6.4 10^3/uL (1.5-8.5); NEUTROPHILS % 75.3 % (36.0-66.0); PLATELET COUNT, AUTOMATED 153 10^3/uL (150-450); RED BLOOD COUNT 4.71 10^6/uL (4.30-6.10); WHITE BLOOD COUNT 8.4 10^3/uL (4.0-10.0)
[2020-12-18 06:03] LABS: INR 2.59; PROTHROMBIN TIME 28.1 SECONDS (12.7-14.5)
[2020-12-18 06:16] LABS: ALBUMIN 2.6 GM/DL (3.2-5.2); BILIRUBIN,TOTAL 0.9 MG/DL (0.2-1.0); CALCIUM LEVEL 8.6 MG/DL (8.8-10.2); CREATININE FOR GFR 1.74 MG/DL (0.70-1.30); GLOMERULAR FILTRATION RATE 41.7 (>49); POTASSIUM SERUM 3.6 MEQ/L (3.5-5.1); TOTAL PROTEIN 6.8 GM/DL (6.4-8.2)
--- NOTE | 2020-12-18 06:57 | IPNPDOC ---
Subjective Date Seen The patient was seen on 12/17/20. Subjective Chief Complaint/HPI Patient was seen and examined at bedside this morning. He continues to have some abdominal pain in the left lower quadrant, but reports improvement from time of admission. Endorses having a diminished appetite but is willing to try a liquid diet. Denies headaches, chest pain, shortness of breath, and problems with urination or bowel movements Other systems 10 point review of system is negative except for what is noted in the HPI Objective Physical Examination General Exam: Positive: Alert, Cooperative Eye Exam: Positive: PERRLA, Conjunctiva & lids normal, EOMI, Sclera icteric; Negative: Ptosis ENT Exam: Positive: Atraumatic, Mucous membr. moist/pink, Pharynx Normal Neck Exam: Positive: Supple; Negative: JVD, thyromegaly Chest Exam: Positive: Clear to auscultation, Normal air movement; Negative: Rales, Rhonchi, Wheezing Heart Exam: Positive: Rate Normal, Regular Rhythm, Normal S1, Normal S2 Abdomen Exam: Positive: Normal bowel sounds, Soft, Tenderness (Reported in the left lower quadrant); Negative: BS Hyperactive, BS Hypoactive, Hepatospenomegaly Extremity Exam: Negative: Clubbing, Cyanosis, Edema Neuro Exam: Positive: Normal Speech, Cranial Nerves 3-12 NL Psych Exam: Positive: Mental status NL, Mood NL Assessment /Plan Plan/VTE VTE Prophylaxis Ordered?: Yes Plan #Acute pancreatitis -He does not endorse etoh use. Ultrasound noted to have gallstones but no biliary duct dilatation; TG within normal limits. He was on DPP 4 inhibitor as well as GLP for his diabetes, which may be an underlying etiology of his pancreatitis. -For now continue with IV fluids. We will advance his diet as tolerated, starting off with clear liquid diets. If he is able to tolerate to switch IV fluids from D5 normal saline to normal saline. #Hypoglycemia -Resolved secondary to poor p.o. intake. Continue with hypoglycemic protocol, every 4 Accu-Cheks, and insulin sliding scale. If he is tolerating his diet and blood glucose remains in acceptable range (1 40-180) we will change fingersticks to achs. #Diabetes mellitus type 2 -Once blood glucose levels are back to baseline we will begin to reintroduce his ambulatory insulin regimen. For now continue with plan as above #Coronary artery disease -Apparently had intermittent chest pain on admission. However, he does not endorse this today. EKG showed no acute ST/T wave changes. Troponin x2 is negative. -Continue with aspirin, statin, Plavix, and metoprolol. #Paroxysmal atrial fibrillation -Heart rate at this time is well controlled. Continue with digoxin and metoprolol. On warfarin for anticoagulation, daily INR checks #HFpEF -No signs of acute exacerbation at this time. We will need to be mindful of patient's fluid status as he is receiving high rate for his pancreatitis. #Gout -Continue allopurinol as well as from febuxostat #DVT ppx -on warfarin. VS, I&O, 24H, Fishbone Vital Signs/I&O Vital Signs Date Time Temp Pulse Resp B/P (MAP) Pulse Ox O2 Delivery O2 Flow Rate FiO2 12/17/20 12:51 98.2 70 21 129/60 (83) 97 Room Air 12/17/20 04:00 2.0 I&O- Last 24 Hours up to 6 AM 12/17/20 06:00 Intake Total 900 ml Output Total 950 ml Balance -50 ml Laboratory Data 24H LABS Laboratory Tests 2 12/16/20 13:55: Immature Granulocyte % (Auto) 0.8, Neutrophils (%) (Auto) 83.6H, Lymphocytes (%) (Auto) 6.6L, Monocytes (%) (Auto) 8.4H, Eosinophils (%) (Auto) 0.4, Basophils (%) (Auto) 0.2, Neutrophils # (Auto) 11.5H, Lymphocytes # (Auto) 0.9L, Monocytes # (Auto) 1.2H, Eosinophils # (Auto) 0.1, Basophils # (Auto) 0.0, Nucleated Red Blood Cells % (auto) 0.0, Urine Color STRAW, Urine Appearance CLEAR, Urine pH 8.0, Urine Specific [place] 1.005, Urine Protein NEGATIVE, Urine Glucose (UA) NEGATIVE, Urine Ketones NEGATIVE, Urine Blood NEGATIVE, Urine Nitrite NEGATIVE, Urine Bilirubin NEGATIVE, Urine Urobilinogen 0.2, Urine Leukocyte Esterase NEGATIVE, Urine WBC (Auto) 1, Urine RBC (Auto) 1, Urine Hyaline Casts (Auto) 0, Urine Bacteria (Auto) NEGATIVE, Urine Squamous Epithelial Cells 0, Urine Sperm (Auto) , Anion Gap 8, Glomerular Filtration Rate 30.6L, Calcium Level 9.2, Total Bilirubin 1.5H, Direct Bilirubin 0.7H, Aspartate Amino Transf (AST/SGOT) 60H, Alanine Aminotransferase (ALT/SGPT) 111H, Alkaline Phosphatase 177H, Total Creatine Kinase 123, Creatine Kinase MB < 1.0, Creatine Kinase MB Relative Index 0.81, Troponin I < 0.02, YJ-Dgo-X-Type Natriuretic Peptide 518H, Total Protein 7.4, Albumin 3.3, Albumin/Globulin Ratio 0.8, Triglycerides Level 102, Total Cholesterol 148, LDL Cholesterol 89, Non-HDL Cholesterol (LDL + VLDL) 109, Total HDL Cholesterol 39L, Cholesterol/HDL Ratio 3.794, Lipase 5174H, Thyroid Stimulating Hormone (TSH) 1.260, Free Thyroxine 1.47H 12/16/20 14:50: POC Glucose (Misc Panel) 46L, POC Sodium (Misc Panel) 138, POC Potassium (Misc Panel) 3.6, POC Chloride (Misc Panel) 98, POC Total CO2 (Misc Panel) 27.0, POC Blood Urea Nitrogen (Misc Panel 44H, POC Ionized Calcium (Misc Panel) 4.5, POC Creatinine (Misc Panel) 2.3H, POC Hematocrit (Misc Panel) 49.0 12/16/20 16:06: Bedside Glucose (Misc Panel) 39*L 12/16/20 16:25: Bedside Glucose (Misc Panel) 84 12/16/20 16:43: Bedside Glucose (Misc Panel) 130H 12/16/20 17:06: Prothrombin Time 26.6H, Prothromb Time International Ratio 2.41, Activated Partial Thromboplast Time 71.0H, Coronavirus (COVID-19)(PCR) NEGATIVE, Influenza Type A (RT-PCR) NEGATIVE, Influenza Type B (RT-PCR) NEGATIVE, Respiratory Syncytial Virus (PCR) NEGATIVE 12/16/20 18:07: Bedside Glucose (Misc Panel) 132H 12/16/20 19:36: Anion Gap 5L, Glomerular Filtration Rate 31.5L, Calcium Level 9.2, Troponin I < 0.02 12/16/20 22:17: Bedside Glucose (Misc Panel) 70L 12/17/20 01:24: Bedside Glucose (Misc Panel) 102 12/17/20 04:46: Immature Granulocyte % (Auto) 0.5, Neutrophils (%) (Auto) 79.4H, Lymphocytes (%) (Auto) 9.9L, Monocytes (%) (Auto) 7.8, Eosinophils (%) (Auto) 2.0, Basophils (%) (Auto) 0.4, Neutrophils # (Auto) 7.6, Lymphocytes # (Auto) 0.9L, Monocytes # (Auto) 0.7, Eosinophils # (Auto) 0.2, Basophils # (Auto) 0.0, Nucleated Red Blood Cells % (auto) 0.0, Prothrombin Time 26.4H, Prothromb Time International Ratio 2.39, Anion Gap 10, Glomerular Filtration Rate 34.9L, Calcium Level 8.7L, Total Bilirubin 1.4H, Aspartate Amino Transf (AST/SGOT) 37, Alanine Aminotransferase (ALT/SGPT) 80H, Alkaline Phosphatase 153H, Total Protein 6.3L, Albumin 2.7L, Albumin/Globulin Ratio 0.8, Lipase 2959H 12/17/20 08:43: Bedside Glucose (Misc Panel) 186H 12/17/20 12:14: Bedside Glucose (Misc Panel) 150H CBC/BMP Laboratory Tests 12/16/20 13:55 12/16/20 19:36 12/17/20 04:46 Microbiology Microbiology 12/16/20 Blood Culture, Received Pending 12/16/20 Blood Culture, Received Pending ANGELITO BURDICK M.D. Dec 17, 2020 13:32
[2020-12-18 07:30] VITALS: BP 137/81
[2020-12-18] MEDS: GABAPENTIN 300 MG CAP PO SCH ×3 (08:46→21:47)
[2020-12-18] MEDS: allopurinoL 300 MG TAB PO SCH (08:46)
[2020-12-18] MEDS: DIGOXIN 0.125 MG TAB PO SCH (08:46)
[2020-12-18] MEDS: FEBUXOSTAT 40 MG TABLET (ULORIC) PO SCH (08:46)
[2020-12-18] MEDS: CLOPIDOGREL 75 MG TAB PO SCH (08:46)
[2020-12-18] MEDS: ASPIRIN 81MG ENTERIC TABLET PO SCH (08:46)
[2020-12-18] MEDS: HumaLOG INSULIN (NovoLOG) PER UNIT SC SCH ×4 (08:47→21:00)
[2020-12-18] MEDS: METOPROLOL SUCC (TopROL XL) 100MG *XL* TAB PO SCH (08:47)
[2020-12-18 15:35] VITALS: BP 120/65
--- NOTE | 2020-12-18 15:46 | IPNPDOC ---
Subjective Date Seen The patient was seen on 12/18/20. Subjective Chief Complaint/HPI Patient was seen and examined at bedside this morning. He reports significant improvement in his abdominal pain. He was able to tolerate a soft diet this morning. He denies headaches, chest pain, abdominal pain, nausea, vomiting, problems with urination or bowel movements Other systems 10 point review of system was negative except for what is noted in the HPI. Objective Physical Examination Other physical findings General: Lying in bed, no acute distress Head/Neck/Throat: Trachea midline, mucous membranes moist Eyes: Sclera anicteric, no erythema or discharge appreciated bilaterally Thorax: Normal respiratory effort on room air, lungs clear to auscultation bilaterally, no wheezes/rales/rhonchi Cardiovascular: Normal rate, regular rhythm, normal S1, S2; 2 + bilateral lower extremity edema up to the knees Abdomen: Bowel sounds present, soft/nontender/nondistended Genitourinary: No CVA tenderness, no Rodriguez in place Musculoskeletal: Moving all extremities, no edema Skin: Warm, dry Neurologic: AAOx3, speech fluent and goal-directed, no focal deficits, grossly intact Assessment /Plan Plan/VTE VTE Prophylaxis Ordered?: Yes Plan #Acute pancreatitis -Abdominal pain has resolved. He is tolerating a diet. Lipase levels have trended down, although these do not typically need to be trended as he has shown clinical improvement. If he is able to tolerate this evening's meal we can anticipate discharging him tomorrow morning. -He does not endorse etoh use. Ultrasound noted to have gallstones but no biliary duct dilatation; TG within normal limits. He was on DPP 4 inhibitor as well as GLP for his diabetes, which may be an underlying etiology of his pancreatitis. -We will hold further fluids due to his increasing lower extremity edema (this is chronic). #Hypoglycemia -Resolved. Was secondary to poor p.o. intake. Continue with hypoglycemic protocol, every 4 Accu-Cheks, and insulin sliding scale. If he is tolerating his diet and blood glucose remains in acceptable range (140-180) we will change fingersticks to achs. #Diabetes mellitus type 2 -Insulin sliding scale for now. Patient had previous episodes of hypoglycemia #Coronary artery disease -Apparently had intermittent chest pain on admission. However, he does not endorse this today. EKG showed no acute ST/T wave changes. Troponin x2 is negative. -Continue with aspirin, statin, Plavix, and metoprolol. #Paroxysmal atrial fibrillation -Heart rate at this time is well controlled. Continue with digoxin and metop rolol. On warfarin for anticoagulation, daily INR checks #HFpEF -No signs of acute exacerbation at this time. We will need to be mindful of patient's fluid status as he is receiving high rate for his pancreatitis. #Gout -Continue allopurinol as well as from febuxostat #DVT ppx -on warfarin. VS, I&O, 24H, Fishbone Vital Signs/I&O Vital Signs Date Time Temp Pulse Resp B/P (MAP) Pulse Ox O2 Delivery O2 Flow Rate FiO2 12/18/20 04:00 97.6 73 20 140/76 (97) 99 NIPPV (BIPAP/CPAP) 12/17/20 04:00 2.0 I&O- Last 24 Hours up to 6 AM 12/18/20 05:59 Intake Total 6115 ml Output Total 1150 ml Balance 4965 ml Laboratory Data 24H LABS Laboratory Tests 2 12/17/20 08:43: Bedside Glucose (Misc Panel) 186H 12/17/20 12:14: Bedside Glucose (Misc Panel) 150H 12/17/20 16:35: Bedside Glucose (Misc Panel) 166H 12/17/20 20:33: Bedside Glucose (Misc Panel) 170H 12/18/20 05:35: Immature Granulocyte % (Auto) 0.4, Neutrophils (%) (Auto) 75.3H, Lymphocytes (%) (Auto) 11.4L, Monocytes (%) (Auto) 8.2H, Eosinophils (%) (Auto) 4.2H, Basophils (%) (Auto) 0.5, Neutrophils # (Auto) 6.4, Lymphocytes # (Auto) 1.0L, Monocytes # (Auto) 0.7, Eosinophils # (Auto) 0.4, Basophils # (Auto) 0.0, Nucleated Red Blood Cells % (auto) 0.0, Prothrombin Time 28.1H, Prothromb Time International Ratio 2.59, Anion Gap 5L, Glomerular Filtration Rate 41.7L, Calcium Level 8.6L, Total Bilirubin 0.9, Aspartate Amino Transf (AST/SGOT) 27, Alanine Aminotransferase (ALT/SGPT) 58, Alkaline Phosphatase 131H, Total Protein 6.8, Albumin 2.6L, Albumin/Globulin Ratio 0.6, Lipase 1744H CBC/BMP Laboratory Tests 12/18/20 05:35 Microbiology Microbiology 12/17/20 Blood Culture, Received Pending 12/16/20 Blood Culture - Preliminary, Resulted No growth after 24 hours . All specim... 12/16/20 Blood Culture - Preliminary, Resulted ANGELITO BURDICK M.D. Dec 18, 2020 06:56
[2020-12-18] MEDS ORDERED: WARFARIN SOD 5MG TAB PO ONE (17:00)
[2020-12-18] MEDS ORDERED: POTASSIUM CHLORIDE 10 MEQ SR TABLET PO ONE (19:20)
[2020-12-18] MEDS ORDERED: MONTELUKAST 10 MG TAB PO SCH (21:00)
[2020-12-18] MEDS: PANTOPRAZOLE 40MG VIAL (C9113 PER 1) IV SCH (21:47)
[2020-12-18] MEDS: aMILoride 5 MG TAB PO SCH (21:48)
[2020-12-18] MEDS: BUMETANIDE 1 MG TAB PO SCH (21:48)
[2020-12-18 22:00] VITALS: BP 131/58
[2020-12-19 06:00] VITALS: BP 140/76
--- NOTE | 2020-12-19 06:38 | IPNPDOC ---
Subjective Date Seen The patient was seen on 12/19/20. Assessment /Plan Plan/VTE VTE Prophylaxis Ordered?: Yes VS, I&O, 24H, Fishbone Vital Signs/I&O Vital Signs Date Time Temp Pulse Resp B/P (MAP) Pulse Ox O2 Delivery O2 Flow Rate FiO2 12/19/20 06:00 97.5 78 18 140/76 (97) 99 NIPPV (BIPAP/CPAP) 12/17/20 04:00 2.0 I&O- Last 24 Hours up to 6 AM0 12/19/20 06:00 Intake Total 600 ml Balance 600 ml Laboratory Data 24H LABS Laboratory Tests 2 12/18/20 11:34: Bedside Glucose (Misc Panel) 202H 12/18/20 17:19: Bedside Glucose (Misc Panel) 125H 12/18/20 20:23: Bedside Glucose (Misc Panel) 193H Microbiology Microbiology 12/17/20 Blood Culture - Preliminary, Resulted No growth after 24 hours . All specim... 12/16/20 Blood Culture - Preliminary, Resulted No Growth after 48 hours. All Specime... 12/16/20 Blood Culture - Preliminary, Resulted ANGELITO BURDICK M.D. Dec 19, 2020 06:38
[2020-12-19 07:09] LABS: BASO # 0.1 10^3/uL (0.0-0.2); BASO % 0.7 % (0.0-1.0); EOS # 0.3 10^3/uL (0.0-0.5); EOS % 4.5 % (0.0-3.0); HEMATOCRIT 43.7 % (42.0-52.0); HEMOGLOBIN 14.2 g/dl (13.5-17.5); LYMPH # 1.1 10^3/uL (1.5-5.0); LYMPH % 15.2 % (24.0-44.0); MEAN CORPUSCULAR HEMOGLOBIN 30.3 pg (27.0-33.0); MEAN CORPUSCULAR HGB CONC 32.5 g/dl (32.0-36.5); MEAN CORPUSCULAR VOLUME 93.4 fl (80.0-96.0); MONO # 0.6 10^3/uL (0.0-0.8); MONO % 7.6 % (2.0-8.0); NEUTROPHILS # 5.4 10^3/uL (1.5-8.5); NEUTROPHILS % 71.5 % (36.0-66.0); PLATELET COUNT, AUTOMATED 169 10^3/uL (150-450); RED BLOOD COUNT 4.68 10^6/uL (4.30-6.10); WHITE BLOOD COUNT 7.5 10^3/uL (4.0-10.0)
[2020-12-19 07:19] LABS: INR 2.51; PROTHROMBIN TIME 27.4 SECONDS (12.7-14.5)
[2020-12-19 07:38] LABS: ALBUMIN 2.8 GM/DL (3.2-5.2); BILIRUBIN,TOTAL 1.1 MG/DL (0.2-1.0); CALCIUM LEVEL 8.2 MG/DL (8.8-10.2); CREATININE FOR GFR 1.6 MG/DL (0.70-1.30); POTASSIUM SERUM 3.5 MEQ/L (3.5-5.1); TOTAL PROTEIN 6.4 GM/DL (6.4-8.2)
[2020-12-19] MEDS ORDERED: ATORVASTATIN 20 MG TAB PO SCH (09:00)
[2020-12-19] MEDS ORDERED: ISOSORBIDE MON. (IMDUR) 60 MG XR TAB PO SCH (09:00)
[2020-12-19] MEDS: ASPIRIN 81MG ENTERIC TABLET PO SCH (09:22)
[2020-12-19] MEDS: HumaLOG INSULIN (NovoLOG) PER UNIT SC SCH (09:22)
[2020-12-19] MEDS: allopurinoL 300 MG TAB PO SCH (09:23)
[2020-12-19] MEDS: CLOPIDOGREL 75 MG TAB PO SCH (09:23)
[2020-12-19] MEDS: GABAPENTIN 300 MG CAP PO SCH (09:23)
[2020-12-19] MEDS: BUMETANIDE 1 MG TAB PO SCH (09:23)
[2020-12-19] MEDS: FEBUXOSTAT 40 MG TABLET (ULORIC) PO SCH (09:23)
[2020-12-19] MEDS: aMILoride 5 MG TAB PO SCH (09:24)
[2020-12-19 09:27] VITALS: BP 110/64
[2020-12-19] MEDS: DIGOXIN 0.125 MG TAB PO SCH (09:27)
[2020-12-19] MEDS: METOPROLOL SUCC (TopROL XL) 100MG *XL* TAB PO SCH (09:27)
--- NOTE | 2020-12-19 09:45 | DS.PDOC ---
Discharge Summary General Date of Admission Dec 16, 2020 at 17:01 Date of Discharge 12/19/20 Discharge Summary Mr. Galindo was seen at [facility] on 12/16 with complaints of abdominal pain. He has a past medical history of type 2 diabetes mellitus complicated with diabetic neuropathy, coronary artery disease, and hypertension. He was noted to have elevated lipase levels and was admitted for management of acute pancreatitis. CT scan of the abdomen that was done on 12/16 noted findings are suggestive of pancreatitis. He does not endorse alcohol use; and gallbladder ultrasound was also showed no evidence of biliary duct dilatation to suggest choledocholithiasis to be the etiology of his pancreatitis. There were 2 large gallbladder stones measuring 9 to 10 mm without evidence of cholecystitis. His triglycerides levels were within normal limits. He was on DPP 4 inhibitors and GLP 1 agonist for his diabetes which may have caused his pancreatitis. On admission, he was also noted to be hypoglycemic. This was due to his poor oral intake due to his abdominal pain and nausea. This had resolved by the time of discharge. He remained asymptomatic and did not show any clinical signs of hypoglycemia. He was highly educated about his diabetes and to discuss further management with his primary care physician and/or drier take off tender. He was asked to keep a close eye on his blood glucose levels due to stopping 2 of his medications that are thought to be the reason for his current admission. He understood to make sure to check his blood glucose appropriately to ensure it was not too low or not increasing. He understood the consequences of either were to occur. On admission he did have transaminitis which had resolved. He was tolerating a regular diet at the time of discharge, and was back to his baseline. Physical exam prior to discharge General: Lying in bed, no acute distress Head/Neck/Throat: Trachea midline, mucous membranes moist Eyes: Sclera anicteric, no erythema or discharge appreciated bilaterally Thorax: Normal respiratory effort on room air, lungs clear to auscultation bilaterally, no wheezes/rales/rhonchi Cardiovascular: Normal rate, regular rhythm, normal S1, S2; chronic lower extremity edema Abdomen: Bowel sounds present, soft/nontender/nondistended Genitourinary: No CVA tenderness, no Rodriguez in place Musculoskeletal: Moving all extremities Skin: Warm, dry Neurologic: AAOx3, speech fluent and goal-directed, no focal deficits, grossly intact Vital Signs/I&Os Vital Signs Date Time Temp Pulse Resp B/P (MAP) Pulse Ox O2 Delivery O2 Flow Rate FiO2 12/19/20 09:27 115 110/64 12/19/20 06:00 97.5 18 99 NIPPV (BIPAP/CPAP) 12/17/20 04:00 2.0 I&O- Last 24 Hours up to 6 AM 12/19/20 06:00 Intake Total 600 ml Balance 600 ml Laboratory Data Labs 24H Laboratory Tests 2 12/18/20 11:34: Bedside Glucose (Misc Panel) 202H 12/18/20 17:19: Bedside Glucose (Misc Panel) 125H 12/18/20 20:23: Bedside Glucose (Misc Panel) 193H 12/19/20 06:18: Immature Granulocyte % (Auto) 0.5, Neutrophils (%) (Auto) 71.5H, Lymphocytes (%) (Auto) 15.2L, Monocytes (%) (Auto) 7.6, Eosinophils (%) (Auto) 4.5H, Basophils (%) (Auto) 0.7, Neutrophils # (Auto) 5.4, Lymphocytes # (Auto) 1.1L, Monocytes # (Auto) 0.6, Eosinophils # (Auto) 0.3, Basophils # (Auto) 0.1, Nucleated Red Blood Cells % (auto) 0.0, Prothrombin Time 27.4H, Prothromb Time International Ratio 2.51, Anion Gap 6L, Glomerular Filtration Rate 46.0L, Calcium Level 8.2L, Total Bilirubin 1.1H, Aspartate Amino Transf (AST/SGOT) 26, Alanine Aminotransferase (ALT/SGPT) 53, Alkaline Phosphatase 145H, Total Protein 6.4, Albumin 2.8L, Albumin/Globulin Ratio 0.8, Lipase 1328H CBC/BMP Laboratory Tests 12/19/20 06:18 FSBS Laboratory Tests Test 12/18/20 11:34 12/18/20 17:19 12/18/20 20:23 Range/Units Bedside Glucose (Misc Panel) 202 125 193 80-115 MG/DL Microbiology Microbiology 12/17/20 Blood Culture - Preliminary, Resulted No growth after 24 hours . All specim... 12/16/20 Blood Culture - Preliminary, Resulted No Growth after 48 hours. All Specime... 12/16/20 Blood Culture - Preliminary, Resulted Discharge Medications Scheduled Amiloride HCl (Amiloride HCl) 5 Mg Tablet, 10 MG PO BID, (Reported) Aspirin (Aspirin EC) 81 Mg Tablet.dr, 81 MG PO DAILY, (Reported) Atorvastatin Calcium (Atorvastatin Calcium) 80 Mg Tablet, 80 MG PO DAILY, (Reported) Bumetanide (Bumetanide) 1 Mg Tablet, 3 MG PO BID, (Reported) 2ND @ 1600 Calcium Carbonate/Vitamin D3 (Calcium 600-Vit D3 400 Tablet) 1 Tab Tab, 1 TAB PO DAILY, (Reported) Clopidogrel Bisulfate (Plavix) 75 Mg Tablet, 75 MG PO DAILY, (Reported) Digoxin (Digoxin) 125 Mcg Tablet, 125 MCG PO DAILY, (Reported) Febuxostat (Uloric) 40 Mg Tablet, 40 MG PO DAILY, (Reported) Gabapentin (Gabapentin) 300 Mg Capsule, 300 MG PO TID, (Reported) Insulin Human Lispro (Humalog) 1 Units/0.01 Ml Inj, 1 DOSE SC BIDWM, (Reported) PER SLIDING SCALE Insulin Human Regular (Humulin R U-500 Kwikpen) 500 Unit/1 Ml Insuln.pen, 80 UNIT SC BID, (Reported) Isosorbide Mononitrate (Isosorbide Mononitrate ER) 60 Mg Tab.er.24h, 60 MG PO DAILY, (Reported) L.acidoph/L.bulg/B.bif/S.therm (Felicita-Bid Caplet) 1 Each Tablet, 1 TAB PO BID, (Reported) Magnesium Oxide (Magnesium Oxide) 500 Mg Tablet, 1,000 MG PO BID, (Reported) Metolazone (Metolazone) 2.5 Mg Tablet, 2.5 MG PO 3XW, (Reported) QA - WED,WED,WED Metoprolol Succinate (Metoprolol Succinate) 100 Mg Tab.er.24h, 100 MG PO DAILY, (Reported) Montelukast Sodium (Montelukast Sodium) 10 Mg Tablet, 10 MG PO QHS, (Reported) Multivitamins (Thera M Plus Tablet) 1 Each Tablet, 1 TAB PO DAILY, (Reported) [place]-3/Dha/Epa/Fish Oil (Fish Oil 1,000 mg Softgel) 1 Each Capsule, 2,000 MG PO DAILY, (Reported) Omeprazole (Omeprazole) 40 Mg Capsule.dr, 40 MG PO BID, (Reported) Potassium Chloride (Potassium Chloride) 20 Meq Tab.er.prt, 40 MEQ PO 3XW, (Reported) MON, WED, FRI @ LUNCH Warfarin Sodium (Jantoven) 7.5 Mg Tablet, 7.5 MG PO 6XWK, (Reported) @ QHS -WED, , WED, UR, SAT, SUN Warfarin Sodium (Jantoven) 5 Mg Tablet, 10 MG PO 1XWK, (Reported) @ QHS ON FRI. allopurinoL (allopurinoL) 300 Mg Tablet, 300 MG PO DAILY, (Reported) Scheduled PRN Nitroglycerin (Nitroglycerin) 0.4 Mg Sub, 0.4 MG SL NITRO PRN for CHEST PAIN, ( Reported) Allergies Coded Allergies: DANIELA Inhibitors (Verified Allergy, Intermediate, RASH, 05/03/20) spironolactone (Verified Adverse Reaction, Intermediate, gynecomastia, 05/03/20) ANGELITO BURDICK M.D. Dec 19, 2020 09:33
[2020-12-19] MEDS ORDERED: POTASSIUM CHLORIDE 10 MEQ SR TABLET PO ONE (10:00)
== END 2020-12-19 11:24 | disposition home or self-care (01) | DRG 439 ==
LOC: M ED 11:58 → M ED INP 17:01 → M PCU 21:23 → M MSPAV 12-18 15:20
PROVIDERS: ADMIT Internal Medicine; ATTEND Internal Medicine
DX: K85.90 Acute pancreatitis without necrosis or infection, unspecified (principal); N18.4 Chronic kidney disease, stage 4 (severe); N02.8 Recurrent and persistent hematuria with other morphologic changes; I50.32 Chronic diastolic (congestive) heart failure; I13.0 Hypertensive heart and chronic kidney disease with heart failure and stage 1 through stage 4 chronic kidney disease, or unspecified chronic kidney disease; R07.89 Other chest pain; E11.42 Type 2 diabetes mellitus with diabetic polyneuropathy; I25.10 Atherosclerotic heart disease of native coronary artery without angina pectoris; K80.20 Calculus of gallbladder without cholecystitis without obstruction; E11.649 Type 2 diabetes mellitus with hypoglycemia without coma; Z79.82 Long term (current) use of aspirin; Z79.4 Long term (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 insulin; Z79.899 Other long term (current) drug therapy; Z79.01 Long term (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 anticoagulants; Z88.8 Allergy status to other drugs, medicaments and biological substances; E78.5 Hyperlipidemia, unspecified; G47.33 Obstructive sleep apnea (adult) (pediatric); K21.9 Gastro-esophageal reflux disease without esophagitis; Z86.711 Personal history of pulmonary embolism; I48.0 Paroxysmal atrial fibrillation; Z98.41 Cataract extraction status, right eye; Z87.891 Personal history of nicotine dependence; M10.9 Gout, unspecified

== ENCOUNTER → 2021-01-15 | Outpatient (REF) | payer MEDICARE, MEDICAID ==
[~2021-01-15] MED LIST changes: +ALLO300T2 PO; +ASPI81TA26 PO; +JANT5TAB PO; +JANT7.5T PO; +JANU25TA PO; +METO1TAB33 PO; +OMEP-221 PO; +PLAV1TAB2 PO; +POTA1TAB14 PO
== END ==
LOC: M LAB REF 17:14
PROVIDERS: ATTEND Internal Medicine Nephrology
DX: N18.32 Chronic kidney disease, stage 3b (principal)

== ENCOUNTER → 2021-03-24 | Outpatient (CLI) | payer MEDICARE, MEDICAID ==
[~2021-03-24] MED LIST changes: -KLOR10TA76 PO; -KLOR20TA42 PO; -MONT10TA10 PO; +MONT10TA97 PO; -OMEP-221 PO; +OMEP40CA5 PO; +POTA-136 PO; +POTA-141 PO; +POTA-151 PO; -POTA20TA6 PO
== END ==
LOC: M PLALAB 12:35
PROVIDERS: ATTEND Family Medicine
DX: Z12.5 Encounter for screening for malignant neoplasm of prostate (principal)
CPT/HCPCS: 36415; G0103; G0463

== ENCOUNTER → 2021-03-24 | Outpatient (REF) | payer MEDICARE, MEDICAID ==
[~2021-03-24] MED LIST changes: +MONT10TA10 PO; -MONT10TA97 PO; +OMEP-221 PO; -OMEP40CA5 PO; -POTA-151 PO; +POTA20TA6 PO
== END ==
LOC: M SFHCPLAZ 11:59
PROVIDERS: ATTEND Family Medicine
DX: Z12.5 Encounter for screening for malignant neoplasm of prostate (principal)

== ENCOUNTER 2021-04-15 10:47 | Inpatient (IN) | payer MEDICARE, MEDICAID ==
[~2021-04-15] VITALS: Ht 175.3 cm; Wt 154.4 kg
--- OUTSIDE RECORDS SUMMARY | 2021-04-15 10:57 | CCD ---
Author Author [facility] Organization [facility] Address Unknown Phone Unavailable Care Team Providers Care Construction Equipment Operator Name Role Phone Rodney Mijares Unavailable PROBLEMS Type Condition ICD9-CM Code [id number] Code Onset Dates Condition S tatus W/U Status Risk SNOMED Code Notes Problem Ataxia R27.0 Active confirmed 83570495 Problem Acute gout of right foot, unspecified cause M10.9 Active confirmed 809537666 Problem Stage 3 chronic kidney disease N18.3 Active confir med 086504079 Problem Hx of deep venous thrombosis Z86.718 Active confirm ed 540027765 Problem Chronic kidney disease, stage IV (severe) N18.4 Active confirmed 282164461 Problem SK (seborrheic keratosis) L82.1 Active confirmed 885583974 Problem Sebaceous hyperplasia L73.8 Active confirmed 450249615 Problem Bilateral carotid artery stenosis I65.23 Active confirmed 408724261 Problem Venous insufficiency of both lower extremities I87 .2 Active confirmed 412642468 Problem Hyperlipidemia, unspecified hyperlipidemia type E7 8.5 Active confirmed 45163629 Problem Stasis dermatitis of both legs I87.2 Active confir med 89266699 Problem Coronary artery disease of n ative heart with stable angina pectoris, unspecified vessel or lesion type I25.118 Active confirmed 384717654 Problem Hypophosphatemia E83.39 Active confirmed 499 6001 Problem Melanocytic nevi of trunk D22.5 Active confirmed 155929426 Problem Melanocytic nevi of right upper limb, including shoulder D22.61 Active confirmed 399591764 Problem Other local lupus erythematosus L93.2 Active confi rmed 78036049 Problem Acne rosacea L71.9 Active confirmed 0046687 04 Problem Adverse effect of unspecifie d drugs, medicaments and biological substances, initial encounter T50.905A Active confirmed 66198284 Problem Type 2 diabetes mellitus with hyperglycemia E11.65 Active confirmed 22542129 Problem Essential hypertension I10 Active confirmed 72427925 Problem Dependence on other enabling machines and devices Z99.89 Active confirmed 275543894 Problem Encounter for therapeutic drug level monitoring Z5 1.81 Active confirmed 076633781 Very slightly above goal. I made no changes, but asked him to come back in 2 weeks instead of 4 weeks just to see which way this is trending Problem Chronic gout without tophus, unspecified cause, unspecified site M1A.9XX0 Active confirmed 57245727 Problem Coronary artery disease invo lving [place] artery of transplanted heart without angina pectoris I25.811 Active confirmed 748595 009 Problem Nocturnal leg cramps G47.62 Active confirmed 363031851 Problem Constipation, unspecified constipation type K59.00 Active confirmed 06793009 Problem Chronic diastolic heart failure I50.32 Active confi rmed 645971112 Problem Morbid obesity due to excess calories E66.01 Ac tive confirmed 488659540 Problem MENDEL (obstructive sleep apnea) G47.33 Active confirm ed 23298580 Problem Discitis of lumbar region M46.46 Active confirmed 906462080 Problem Type 2 diabetes mellitus wit h diabetic neuropathy, unspecified whether skilled nursing insulin use E11.40 Active confirmed 00554588 6351571 Problem Pruritus L29.9 Active confirmed 328434414 Problem 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, unspecified laterality E11.3399 Active confirmed 054073256 Problem halfway (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 anticoagulants Z79.01 Active confirmed 463679659 Problem Melanocytic nevi of face D22.30 Active confirmed 124530273 Problem Type 2 diabetes mellitus with diabetic nephropathy E11.21 Active confirmed 173769427 Problem Melanocytic nevi of left upper limb, including shoulder D22.62 Active confirmed 090256258 Problem halfway current use of insulin Z79.4 Active conf irmed 597663278 Problem Stage 3b chronic kidney disease N18.32 Active confi rmed 327719636 Problem Hives L50.9 Active confirmed 416832789 Problem Chronic anticoagulation Z79.01 Active confirmed 076702881 Problem History of pulmonary embolus (PE) Z86.711 Active confirmed 971547468 Problem Allergic rhinitis, unspecified seasonality, unspecifie d trigger J30.9 Active confirmed 06621985 ALLERGIES Allergen (clinical drug ingredient) Drug/Non Drug Allergy do cumented on EMR Reaction Allergy Type Onset Date Status venlafaxine Venlafaxine HCl([facility] Code:[address]-63) Rash Drug A llergy Active spironolactone Spironolactone([facility] Code:[address]-55) G ynecomastia/breast itching Drug Allergy Active ENCOUNTERS from 1950 to 2021-04-05 Encounter Location Date Provider Diagnosis [facility] [place] [address] [phone] [place] [address] 08 Mar, 2021 Rodney Mijares History of pulmonary embolus (PE) Z86.711 ; Chronic anticoagulation Z79.01 ; Chronic diastolic heart failure I50.32 ; Coronary artery disease of [place] heart with stable angina pectoris, unspecified vessel or lesion type I25.118 ; Essential hypertension I10 ; MENDEL (obstructive sleep apnea) G47.33 ; Type 2 diabetes mellitus with diabetic nephropathy E11.21 ; Stage 3b chronic kidney disease N18.32 ; Morbid obesity due to excess calories E66.01 ; Chronic gout without tophus, unspecified cause, unspecified site M1A.9XX0 ; Colon cancer screening Z12.11 ; Screening PSA (prostate specific antigen) Z12.5 and Immunizations up to date Z92.29 IMMUNIZATIONS Vaccine Route Administration Date Status Moderna #1 dose COVID-19 (given elsewhere) SARSCOV2 VAC 100M CG/0.5ML IM Unknown Jul 11, 2020 Administered Moderna #2 dose COVID-19 (given elsewhere) SARSCOV2 VAC 100M CG/0.5ML IM Unknown August 05, 2020 Administered Influenza Pharmacy Given Unknown Jan 20, 2019 Adminis tered Influenza 18 yrs & older [facility] Unknown Jan 25, 2021 Administered Pneumococcal Adult 0.5mL Pneumovax 23 IM Intramuscular Jan 20, 2019 Administered TDAP 0.5mL (Boostrix) IM Intramuscular December 08, 2018 Administe red SOCIAL HISTORY Tobacco Use: Social History Observation Description Date Details (start date - stop date) Former Smoker Sex Assigned At : Social History Observation Description Sex Assigned At Unknown Education: Question Answer Notes Level of Education: High School Audit Question Answer Notes Total Score: 0 Interpretation: Alcohol Education Language: Question Answer Notes Languages spoken: Romansh Methodist: Question Answer Notes [employer] 33 None Domestic Violence: Question Answer Notes Status: Sexual Hx: Question Answer Notes Had sex in the last 12 months (vaginal, oral, or anal)? No Have you ever had an STD? No Drug and Alcohol Question Answer Notes Total Score: 0 Interpretation: No problems reported Alcohol Screening: Question Answer Notes Did you have a drink containing alcohol in the past year? No Points 0 Interpretation Negative BMI Care Goal Follow-Up Question Answer Notes Above Normal BMI Follow-Up Weight monitoring Tobacco Use: Question Answer Notes Are you a: former smoker How long has it been since you last smoked? > 10 years REASON FOR REFERRAL No Information VITAL SIGNS Weight 348.6 lbs Mar, Weight-kg 158.12 kg Mar, Height 70 in Mar, BMI 50.01 kg/m2 Mar, Heart Rate 78 /min Mar, Respiratory Rate 18 /min Mar, Temperature 97.1 degrees Fahrenheit Mar, Oximetry 98 Mar, Blood pressure systolic 138 mm Hg Mar, Blood pressure diastolic 70 mm Hg Mar, MEDICATIONS Medication SIG (Take, Route, Frequency, Duration) Notes Start Da te End Date Status Multivitamin Adult - 1 tablet Orally Once a day for 30 day(s) Active OneTouch Delica Lancets 30G - 1 lancet subcutaneously Daily for 90 day(s) Dec, Unknown Calcium Carbonate 600 MG as directed Orally bid Active Gabapentin 300 MG 1 capsule Orally Three times a day Active Metoprolol Tartrate 100 MG 1 tablet with food Orally ONCE A DAY Active Benadryl 25 MG 1 capsule at bedtime as needed Orally Once a day for 30 day(s) Not-Taking aMILoride HCl 5 MG 2 tablet with food Orally BID Active Acetaminophen 500 MG 1 capsule as needed Orally once daily as needed Not-Taking HumuLIN R U-500 KwikPen 500 UNIT/ML 100 units Subcutaneous bid Active Januvia 25 MG as directed Orally Not -Taking Montelukast Sodium 10 MG 1 tablet Orally QHS for 30 days Active Isosorbide Mononitrate ER 60 MG 1 tablet in the morning Orally Once a day Active Omeprazole 40 MG 1 capsule 30 minutes before morning meal Orally bid for 30 Days Active Allopurinol 300 MG 1 tablet Orally Once a day Active Fish Oil 500 MG 1 capsule Orally Twice a day for 30 day(s) Active Magnesium 500 MG 2 capsules at bedtime as needed Orally twice a day Active Atorvastatin Calcium 80 MG 1 tablet Orally Once a day Active Warfarin Sodium 5 MG 2 tablets Orally Fridays for 30 day(s) Dec, Active Bumetanide 1 MG 3 tablet Orally BID Active Potassium Chloride 15 MEQ as directed Orally 2 tablets dily MWF and 3 tablets BID ROW Active Vitamin D 50 MCG (1999) 1 capsule Orally Once a day for 30 day(s) Active Aspirin 81 81 MG 1 tablet Orally Once a day Active Jantoven 7.5 MG 1 tablet Orally OF Week 10wed, 7.[address] of week 10 Oct, 2020 Active metOLazone 2.5 MG 1 tablet Orally MWF Active HumaLOG 100 UNIT/ML as directed Subcutaneous sliding scale twice tala y Active Febuxostat 40 MG 1 tablet Orally Once a day Active PROCEDURES No Information RESULTS Component Value Reference Range PSA SCREENING Reviewed date:03/24/2021 16:09:42 Interpretation:WNL Performing Lab:[facility] [address] [address] , ,[place] [address] PSA SCREENING 0.60 < 4.00 REASON FOR VISIT follow up MEDICAL (GENERAL) HISTORY Type Description Date Medical History CKD, stage IV, and h/o IgA nephropathy, Dr. Ceron Medical History HTN Medical History HLD Medical History Peripheral neuropathy Medical History Grade I diastolic heart fail ure; normal systolic function; normal central pressures echo 2017; cardiac PET 2017, Dr. Tellez Medical History IDDM on humalin, humalog R kwikpen Medical History Chronic respiratory disease, Dr. Karin larkin Medical History MENDEL on CPAP, Dr. Terrell Medical History GERD, sees ENT, Dr. Landa in [place] Medical History Hx DVT Medical History kidney disease Medical History History of lupus durg rash Medical History Coronary Artery disease s/p stent placem ent 2019 Surgical History Cardiac cath; [place] 2014 Surgical History Cataract, R eye 2016 Surgical History Heart Cath 10/26/20192019 Surgical History Cataract L eye 2018 Hospitalization History CHF/MENDEZ 04/2016 Hospitalization History orthostasis 05/2016 Hospitalization History spinal infection 05/02/2020-05/20 Hospitalization History pancriatitis 12/2020 Goals Section No Information Health Concerns No Information MEDICAL EQUIPMENT No Information MENTAL STATUS No Information FUNCTIONAL STATUS No Information ASSESSMENTS Encounter Date Diagnosis Assessment Notes Treatment Notes Treatm ent Clinical Notes Mar, History of pulmonary embolus (PE) (ICD-10 - Z86. 711) Hx of multiple PEs and DVT's. Has never been trialed on DOACs in the past, it may be due to cost. No contraindication to DOAC therapy. No history of severe mitral valve isufficency, valve replacement, or ventricular thrombus. Gets weekly INR checks with home INR machine. Mar, Chronic anticoagulation (ICD-10 - Z79.01) Mar, Chronic diastolic heart failure (ICD-10 - I50.32 ) Compensated and stable. No evidence of adverse effects from medication. Follows with Sydney Valera at [facility] cardiology. Nuclear PET 06/2019 showing LVEF 65%. Mar, Coronary artery disease of n ative heart with stable angina pectoris, unspecified vessel or lesion type (ICD-10 - I25.118) Cardiac cath s/p PCI 10/2019, recently came off plavix by cardiology. No angina or SOB. Mar, Essential hypertension (ICD-10 - I10) Well controlled. Mar, MENDEL (obstructive sleep apnea) (ICD-10 - G47.33) Compliant with CPAP, follows with pulmonary associates. Mar, Type 2 diabetes mellitus wit h diabetic nephropathy (ICD-10 - E11.21) Last A1C per patient was <7%, wears a CGM and follows with Dr. Aparicio. Is struggling with weight gain since discontinuing trulicity due to pancreatitis. Not too many other options for him, may get some weight loss from SGLT2, I advised he speak further with Dr. Aparicio about this, may consider nutrition referral for same at next visit. Mar, Stage 3b chronic kidney disease (ICD-10 - N18.32 ) Fluctuates between stage 3a and 3b, followed with Dr. Cintron previously and will now be following with Anastasia Maldonado. Mar, Morbid obesity due to excess calories (ICD-10 - E66.) See diabetes, may consider nutrition referral in the future. Mar, Chronic gout without tophus, unspecified cause, unspecified site (ICD-10 - M1A.9XX0) Stable on medication, no evidence of adverse effects, no contraindications to refill, okay to continue. Patient verbalized understanding and agreement with plan moving forward. Mar, Colon cancer screening (ICD-10 - Z12.11) 03/2020 colonoscopy revealed 4, 4-6mm polyps with moderate diverticulosis. Path showing tubular adenoma, recommended repeat per Dr. Pike was in 3 years, he will be due again in 2022. Mar, Screening PSA (prostate specific antigen) (ICD-1 0 - Z12.5) Mar, Immunizations up to date (ICD-10 - Z92.29) Up to date. PLAN OF TREATMENT Medication Medication Name Sig Start Date Stop Date HumaLOG 100 UNIT/ML as directed Subcutaneous Febuxostat 40 MG 1 tablet Orally Once a day metOLazone 2.5 MG 1 tablet Orally MWF Jantoven 7.5 MG 1 tablet Orally Rest OF Week Oct, aMILoride HCl 5 MG 2 tablet with food Orally BID Potassium Chloride 15 MEQ as directed Orally Isosorbide Mononitrate ER 60 MG 1 tablet in the morning Orally O nce a day Aspirin 81 81 MG 1 tablet Orally Once a day Magnesium 500 MG 2 capsules at bedtime as needed Orally twice a day Bumetanide 1 MG 3 tablet Orally BID Metoprolol Tartrate 100 MG 1 tablet with food Orally ONCE A DAY Atorvastatin Calcium 80 MG 1 tablet Orally Once a day HumuLIN R U-500 KwikPen 500 UNIT/ML 100 units Subcutaneous bid Allopurinol 300 MG 1 tablet Orally Once a day Treatment Notes Assessment Notes Clinical Notes History of pulmonary embolus (PE) Hx of multiple PEs and DVT's. Has never been trialed on DOACs in the past, it may be due to cost. No contraindication to DOAC therapy. No history of severe mitral valve isufficency, valve replacement, or ventricular thrombus. Gets weekly INR checks with home INR machine. Chronic diastolic heart failure Compensa cali and stable. No evidence of adverse effects from medication. Follows with Sydney Valera at [facility] cardiology. Nuclear PET 06/2019 showing LVEF 65%. Coronary artery disease of [place] heart with stable angina pectoris, unspecified vessel or lesion type Cardiac cath s/p PCI 10/2019, recently came off plavix by cardiology. No angina or SOB. Essential hypertension Well controlled. MENDEL (obstructive sleep apnea) Compliant with CPAP, follows with pulmonary associates. Type 2 diabetes mellitus with diabetic nephropathy Last A1C per patient was <7%, wears a CGM and follows with Dr. Aparicio. Is struggling with weight gain since discontinuing trulicity due to pancreatitis. Not too many other options for him, may get some weight loss from SGLT2, I advised he speak further with Dr. Aparicio about this, may consider nutrition referral for same at next visit. Stage 3b chronic kidney disease Fluctuat es between stage 3a and 3b, followed with Dr. Cintron previously and will now be following with Anastasia Maldonado. Morbid obesity due to excess calories Se e diabetes, may consider nutrition referral in the future. Chronic gout without tophus, unspecified cause, unspecified site Stable on medication, no evidence of adverse effects, no contraindications to refill, okay to continue. Patient verbalized understanding and agreement with plan moving forward. Colon cancer screening 03/2020 colonosco py revealed 4, 4-6mm polyps with moderate diverticulosis. Path showing tubular adenoma, recommended repeat per Dr. Pike was in 3 years, he will be due again in 2022. Immunizations up to date Up to date. Next Appt Details 3 Months Reason:f/u Provider Name:Anastasia Reilly, 2021-12-03 03:00:00 PM, [address] [place] [address], , [place], [address], Follow Up:3 Monthsf/u Insurance Providers Payer Name Payer Address Payer Phone Insured Name Patient Relati onship to Insured Coverage Start Date Coverage End Date MEDICARE Part A and B [address] [facility][1] [phone] NEHA SWENSON MEDICAID [employer] [address] [facility] [id number] NEHA SWENSON
--- OUTSIDE RECORDS SUMMARY | 2021-04-15 10:57 | CCD ---
Author Author [facility] Organization [facility] Address Unknown Phone Unavailable Care Team Providers Care [employer] Travel Counselor Name Role Phone Rodney Mijares Unavailable PROBLEMS Type Condition ICD9-CM Code [id number] Code Onset Dates Condition S tatus W/U Status Risk SNOMED Code Notes Problem Ataxia R27.0 Active confirmed 36227935 Problem Acute gout of right foot, unspecified cause M10.9 Active confirmed 966985318 Problem Stage 3 chronic kidney disease N18.3 Active confir med 032013330 Problem Hx of deep venous thrombosis Z86.718 Active confirm ed 726602917 Problem Chronic kidney disease, stage IV (severe) N18.4 Active confirmed 781694450 Problem SK (seborrheic keratosis) L82.1 Active confirmed 981541893 Problem Sebaceous hyperplasia L73.8 Active confirmed 750839658 Problem Bilateral carotid artery stenosis I65.23 Active confirmed 084546865 Problem Venous insufficiency of both lower extremities I87 .2 Active confirmed 512373968 Problem Hyperlipidemia, unspecified hyperlipidemia type E7 8.5 Active confirmed 51703564 Problem Stasis dermatitis of both legs I87.2 Active confir med 02936512 Problem Coronary artery disease of n ative heart with stable angina pectoris, unspecified vessel or lesion type I25.118 Active confirmed 189504932 Problem Hypophosphatemia E83.39 Active confirmed 499 6001 Problem Melanocytic nevi of trunk D22.5 Active confirmed 074299062 Problem Melanocytic nevi of right upper limb, including shoulder D22.61 Active confirmed 350858396 Problem Other local lupus erythematosus L93.2 Active confi rmed 67734249 Problem Acne rosacea L71.9 Active confirmed 4421830 04 Problem Adverse effect of unspecifie d drugs, medicaments and biological substances, initial encounter T50.905A Active confirmed 16887408 Problem Type 2 diabetes mellitus with hyperglycemia E11.65 Active confirmed 02361531 Problem Essential hypertension I10 Active confirmed 04017737 Problem Dependence on other enabling machines and devices Z99.89 Active confirmed 320969194 Problem Encounter for therapeutic drug level monitoring Z5 1.81 Active confirmed 982017049 Very slightly above goal. 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.811 Active confirmed 242586 009 Problem Nocturnal leg cramps G47.62 Active confirmed 959646582 Problem Constipation, unspecified constipation type K59.00 Active confirmed 40176498 Problem Chronic diastolic heart failure I50.32 Active confi rmed 175816459 Problem Morbid obesity due to excess calories E66.01 Ac tive confirmed 956150388 Problem MENDEL (obstructive sleep apnea) G47.33 Active confirm ed 84393641 Problem Discitis of lumbar region M46.46 Active confirmed 658329288 Problem Type 2 diabetes mellitus wit h diabetic neuropathy, unspecified whether bed bug exterminator insulin use E11.40 Active confirmed 13614716 4405607 Problem Pruritus L29.9 Active confirmed 541081502 Problem 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, unspecified laterality E11.3399 Active confirmed 612587952 Problem termite helper (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 anticoagulants Z79.01 Active confirmed 650123399 Problem Melanocytic nevi of face D22.30 Active confirmed 410552904 Problem Type 2 diabetes mellitus with diabetic nephropathy E11.21 Active confirmed 938020771 Problem Melanocytic nevi of left upper limb, including shoulder D22.62 Active confirmed 797461368 Problem residential current use of insulin Z79.4 Active conf irmed 136357963 Problem Stage 3b chronic kidney disease N18.32 Active confi rmed 252730527 Problem Hives L50.9 Active confirmed 729251327 Problem Chronic anticoagulation Z79.01 Active confirmed 596770477 Problem History of pulmonary embolus (PE) Z86.711 Active confirmed 098685770 Problem Allergic rhinitis, unspecified seasonality, unspecifie d trigger J30.9 Active confirmed 38589033 ALLERGIES Allergen (clinical drug ingredient) Drug/Non Drug Allergy do cumented on EMR Reaction Allergy Type Onset Date Status venlafaxine Venlafaxine HCl([facility] Code:[address]-85) Rash Drug A llergy Active spironolactone Spironolactone([facility] Code:[address]-23) G ynecomastia/breast itching Drug Allergy Active ENCOUNTERS from 1950 to 2021-02-10 Encounter Location Date Provider Diagnosis [place] [id number] [facility] [phone] [place] [address] Jan, Rodeny Mijares IMMUNIZATIONS Vaccine Route Administration Date Status Influenza Pharmacy Given Unknown Jan 20, 2019 Adminis tered Pneumococcal Adult 0.5mL Pneumovax 23 IM Intramuscular [...] School Audit Question Answer Notes Total Score: 1 Interpretation: Alcohol Education Language: Question Answer Notes Languages spoken: Icelandic Hindu: Question Answer Notes Hindu 33 None Domestic Violence: Question Answer Notes [...] REASON FOR REFERRAL No Information VITAL SIGNS No information MEDICATIONS Medication SIG (Take, Route, Frequency, Duration) Notes Start Da te End Date Status Febuxostat 40 MG 1 tablet Orally Once a day for 30 day(s) Active Warfarin Sodium 5 MG 2 tablets Orally Fridays for 30 day(s) Dec, Not-Taking Omeprazole 40 MG 1 capsule 30 minutes before morning meal Orally bid for 30 Days Active metOLazone 2.5 MG 1 tablet Orally MWF Active Gabapentin 300 MG 1 capsule Orally Three times a day Active Aspirin 81 81 MG 1 tablet Orally Once a day for 30 day(s) Active HumaLOG 100 UNIT/ML as directed Subcutaneous sliding scale twice tala y Active Potassium Chloride 15 MEQ as directed Orally 2 tablets dily MWF and 3 tablets BID ROW Active HumuLIN R U-500 KwikPen 500 UNIT/ML 100 units Subcutaneous bid Active OneTouch Delica Lancets 30G - 1 lancet subcutaneously Daily for 90 day(s) Dec, Unknown Calcium Carbonate 600 MG as directed Orally bid Active Magnesium 500 MG 2 capsules at bedtime as needed Orally twice a day Active Acetaminophen 500 MG 1 capsule as needed Orally once daily as needed Active Vitamin D 50 MCG (1999) 1 capsule Orally Once a day for 30 day(s) Active Jantoven 7.5 MG 1 tablet Orally Rest OF Week for 30 Days 10mg Fri, 7.5 mg rest of week Oct, Active Isosorbide Mononitrate ER 60 MG 1 tablet in the mornin g Orally Once a day for 30 day(s) Active Benadryl 25 MG 1 capsule at bedtime as needed Orally Once a day for 30 day(s) Active Atorvastatin Calcium 80 MG 1 tablet Orally Once a day for 30 day(s) Active aMILoride HCl 5 MG 2 tablet with food Orally BID Active Januvia 25 MG as directed Orally Act michael Multivitamin Adult - 1 tablet Orally Once a day for 30 day(s) Active Fish Oil 500 MG 1 capsule Orally Twice a day for 30 day(s) Active Montelukast Sodium 10 MG 1 tablet Orally QHS Active PROCEDURES No Information RESULTS No Results REASON FOR VISIT refills MEDICAL (GENERAL) HISTORY Type Description Date Medical [...] History GERD, sees ENT, Dr. Landa in [place] Medical History Hx DVT Medical History kidney disease Medical History History of lupus durg rash Medical History Coronary Artery disease s/p stent placem ent 2019 Surgical History Cardiac cath; [place] 2014 Surgical History Cataract, R eye 2016 Surgical History Heart Cath 10/26/20192019 Surgical History Cataract L eye 2018 Hospitalization History CHF/MENDEZ 04/2016 Hospitalization History orthostasis 05/2016 Hospitalization History spinal infection 05/02/2020-05/20 Hospitalization History pancriatitis 12/2020 Goals Section No Information Health Concerns No Information MEDICAL EQUIPMENT No Information MENTAL STATUS No Information FUNCTIONAL STATUS No Information ASSESSMENTS No Information PLAN OF TREATMENT Medication Medication Name Sig Start Date Stop Date Omeprazole 40 MG 1 capsule 30 minutes before morning meal Orally bid for 30 Days Next Appt Details Provider Name:Anastasia Reilly, 2021-12-03 03:00:00 PM, [address] [place] [address], [place], [place], [facility], Insurance Providers Payer Name Payer Address Payer Phone Insured Name Patient Relati onship to Insured Coverage Start Date Coverage End Date MEDICARE Part A and B [address] [facility] [phone] NEHA SWENSON self MEDICAID [place] [address] [facility] [id number] NEHA SWENSON
--- OUTSIDE RECORDS SUMMARY | 2021-04-15 10:57 | CCD ---
Author Author [facility] Organization [facility] Address Unknown Phone Unavailable Care Team Providers Care Health Evaluator Name Role Phone Rodney Mijares Unavailable PROBLEMS Type Condition ICD9-CM Code SUE68-OR Code Onset Dates Condition S tatus W/U Status Risk SNOMED Code Notes Problem Ataxia R27.0 Active confirmed 24055960 Problem Acute gout of right foot, unspecified cause M10.9 Active confirmed 680552511 Problem Stage 3 chronic kidney disease N18.3 Active confir med 025375016 Problem Hx of deep venous thrombosis Z86.718 Active confirm ed 763141465 Problem Chronic kidney disease, stage IV (severe) N18.4 Active confirmed 741922309 Problem SK (seborrheic keratosis) L82.1 Active confirmed 247670659 Problem Sebaceous hyperplasia L73.8 Active confirmed 611172979 Problem Bilateral carotid artery stenosis I65.23 Active confirmed 994236921 Problem Venous insufficiency of both lower extremities I87 .2 Active confirmed 854838700 Problem Hyperlipidemia, unspecified hyperlipidemia type E7 8.5 Active confirmed 82841154 Problem Stasis dermatitis of both legs I87.2 Active confir med 33658819 Problem Coronary artery disease of n ative heart with stable angina pectoris, unspecified vessel or lesion type I25.118 Active confirmed 362159589 Problem Hypophosphatemia E83.39 Active confirmed 499 6001 Problem Melanocytic nevi of trunk D22.5 Active confirmed 237781883 Problem Melanocytic nevi of right upper limb, including shoulder D22.61 Active confirmed 232099519 Problem Other local lupus erythematosus L93.2 Active confi rmed 36479423 Problem Acne rosacea L71.9 Active confirmed 4694979 04 Problem Adverse effect of unspecifie d drugs, medicaments and biological substances, initial encounter T50.905A Active confirmed 03371768 Problem Type 2 diabetes mellitus with hyperglycemia E11.65 Active confirmed 04620045 Problem Essential hypertension I10 Active confirmed 79486254 Problem Dependence on other enabling machines and devices Z99.89 Active confirmed 876804539 Problem Encounter for therapeutic drug level monitoring Z5 1.81 Active confirmed 529135168 Very slightly above goal. 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.811 Active confirmed 179067 009 Problem Nocturnal leg cramps G47.62 Active confirmed 887713873 Problem Constipation, unspecified constipation type K59.00 Active confirmed 62884885 Problem Chronic diastolic heart failure I50.32 Active confi rmed 932984183 Problem Morbid obesity due to excess calories E66.01 Ac tive confirmed 924360365 Problem MENDEL (obstructive sleep apnea) G47.33 Active confirm ed 22667615 Problem Discitis of lumbar region M46.46 Active confirmed 393920226 Problem Type 2 diabetes mellitus wit h diabetic neuropathy, unspecified whether termite renewal inspector insulin use E11.40 Active confirmed 64663059 6777057 Problem Pruritus L29.9 Active confirmed 893569766 Problem 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, unspecified laterality E11.3399 Active confirmed 400008191 Problem terminologist (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 anticoagulants Z79.01 Active confirmed 230943661 Problem Melanocytic nevi of face D22.30 Active confirmed 050762695 Problem Type 2 diabetes mellitus with diabetic nephropathy E11.21 Active confirmed 988299048 Problem Melanocytic nevi of left upper limb, including shoulder D22.62 Active confirmed 902714527 Problem [facility] current use of insulin Z79.4 Active conf irmed 460576383 Problem Stage 3b chronic kidney disease N18.32 Active confi rmed 129727521 Problem Hives L50.9 Active confirmed 647236180 Problem Chronic anticoagulation Z79.01 Active confirmed 245282784 Problem History of pulmonary embolus (PE) Z86.711 Active confirmed 251058574 Problem Allergic rhinitis, unspecified seasonality, unspecifie d trigger J30.9 Active confirmed 67560472 ALLERGIES Allergen (clinical drug ingredient) Drug/Non Drug Allergy do cumented on EMR Reaction Allergy Type Onset Date Status venlafaxine Venlafaxine HCl([facility] Code:[address]-76) Rash Drug A llergy Active spironolactone Spironolactone([facility] Code:[address]-40) G ynecomastia/breast itching Drug Allergy Active ENCOUNTERS from 1950 to 2021-03-14 Encounter Location Date Provider Diagnosis [place] [address] [facility] [phone] [place] [address] Feb, Rodney Mijares IMMUNIZATIONS Vaccine Route Administration Date Status [...] Education Language: Question Answer Notes Languages spoken: Japanese Congregation: Question Answer Notes Congregation 33 None Domestic Violence: Question Answer Notes [...] Notes Start Da te End Date Status Isosorbide Mononitrate ER 60 MG 1 tablet in the mornin g Orally Once a day for 30 day(s) Unknown HumuLIN R U-500 KwikPen 500 UNIT/ML 100 units Subcutaneous bid Unknown OneTouch Delica Lancets 30G - 1 lancet subcutaneously Daily for 90 day(s) Dec, Unknown Januvia 25 MG as directed Orally Unk nown Multivitamin Adult - 1 tablet Orally Once a day for 30 day(s) Unknown HumaLOG 100 UNIT/ML as directed Subcutaneous sliding scale twice tala y Unknown Febuxostat 40 MG 1 tablet Orally Once a day for 30 day(s) Unknown Vitamin D 50 MCG (1999 [place]) 1 capsule Orally Once a day for 30 day(s) Unknown Atorvastatin Calcium 80 MG 1 tablet Orally Once a day for 30 day(s) Unknown Jantoven 7.5 MG 1 tablet Orally Rest OF Week for 30 Days 10mg Wed, 7.5 mg rest of week Oct, Active Acetaminophen 500 MG 1 capsule as needed Orally once daily as needed Unknown Gabapentin 300 MG 1 capsule Orally Three times a day Unknown Calcium Carbonate 600 MG as directed Orally bid Unknown Aspirin 81 81 MG 1 tablet Orally Once a day for 30 day(s) Unknown Montelukast Sodium 10 MG 1 tablet Orally QHS for 30 days Active Omeprazole 40 MG 1 capsule 30 minutes before morning meal Orally bid for 30 Days Unknown Potassium Chloride 15 MEQ as directed Orally 2 tablets dily MWF and 3 tablets BID ROW Unknown Magnesium 500 MG 2 capsules at bedtime as needed Orally twice a day Unknown Fish Oil 500 MG 1 capsule Orally Twice a day for 30 day(s) Unknown Warfarin Sodium 5 MG 2 tablets Orally Fridays for 30 day(s) Dec, Unknown Benadryl 25 MG 1 capsule at bedtime as needed Orally Once a day for 30 day(s) Unknown metOLazone 2.5 MG 1 tablet Orally MWF Unknown aMILoride HCl 5 MG 2 tablet with food Orally BID Unknown PROCEDURES No Information RESULTS No Results REASON FOR VISIT refill MEDICAL (GENERAL) HISTORY Type Description Date Medical History CKD, stage IV, and h/o IgA nephropathy, Dr. Ceron Medical History HTN Medical History HLD Medical History Peripheral neuropathy Medical History Grade I diastolic heart fail ure; normal systolic function; normal central pressures echo 2017; cardiac PET 2018, Dr. Tellez Medical History IDDM on humalin, humalog R kwikpen Medical History Chronic respiratory disease, Dr. Karin larkin Medical History MENDEL on CPAP, Dr. Terrell Medical History GERD, sees ENT, Dr. Landa in [place] Medical History Hx DVT Medical History kidney disease Medical History History of lupus durg rash Medical History Coronary Artery disease s/p stent placem ent 2019 Surgical History Cardiac cath; [place] 2014 Surgical History Cataract, R eye 2016 [...] Medication Name Sig Start Date Stop Date Montelukast Sodium 10 MG 1 tablet Orally QHS for 30 days Jantoven 7.5 MG 1 tablet Orally Rest OF Week for 30 Days Oct, Next Appt Details Provider Name:Rodney Annallison, 2021-03-24 11 :00:00 AM, [address] [facility], , [place], [address], Provider Name:Anastasia Reilly, 2021-12-03 03:00:00 PM, [address] [facility], , [place], [address], Insurance Providers Payer Name Payer Address Payer Phone Insured Name Patient Relati onship to Insured Coverage Start Date Coverage End Date MEDICARE Part A and B [address] [facility] [phone] NEHA SWENSON MEDICAID [facility] [address] [facility] [address] NEHA SWENSON
--- OUTSIDE RECORDS SUMMARY | 2021-04-15 10:57 | CCD | Continuity of Care Document ---
Author Author Myriam ARCE MD Organization Unknown Address [address] [facility] [place] [address] Phone [phone] Care Team Providers Care Motion Picture Set Up Worker Name Role Phone Foster Bahena MD AUTM [phone] Marc Frey DO AUTM [phone] Sugey Szymanski MD AUTM [phone] Andres Tellez MD AUTM [phone] Problems Active Problems Provider Date Essential hypertension Onset: 05/02/2019 Pure hypercholesterolemia Onset: 019 Social History Type Date Description Comments Sex Unknown Cigarette Use Denies Cigarette Use Cigars Former Cigar Smoker 2 Daily quit 25 yrs ago ETOH Use Denies alcohol use Tobacco Use Start: Unknown Denies Smoking Smoking Status Reviewed: 09/04/20 Denies Smoking Allergies, Adverse Reactions, Alerts Active Allergies Criticality Reaction | Severity Comments Date Spironolactone Unable to assess criticality 05/02/2019 Medications Active Medications SIG Qnty Indications Ordering Provide r Date Tylenol Extra Strength 500mg Table ts 1 by mouth as needed 90tabs Julianne Arce MD 01/23/2021 Benadryl Allergy Ultratabs 25mg Ta blets 1 by mouth as needed Julianne Arce MD Febuxostat 40mg Tablets 1 pd Julianne Arce MD 05/21/2020 Nitroglycerin 0.4mg/HR Patches 24HR prn Julianne Arce MD 05/21/2020 Onetouch Delica Lancets Fine 30G 3 0G Misc use as directed 4 times a day- on high dose insulin ( U-500) 400units Julianne Arce MD 08/17/2019 Calcium 600 High Potency 600mg Tab lets 1 by mouth daily Unknown Amiloride HCL 5mg Tablets take two tablets twice a day Unknown Jantoven 5mg Tablets take one tablet everyday except wednesday Unknown 0 Allopurinol 300mg Tablets 1 p o qd Unknown Vitamin D3 50mcg (2000 Ut) Capsule s 1 po qd Unknown [place]-3 1000mg Capsules 2 po qd Unknown Multivitamin Adult Tablets 1 by mouth every day Unknown Omeprazole 40mg Capsules DR 1 po qd Unknown Gabapentin 300mg Capsules 1 p o tid Unknown Atorvastatin Calcium 80mg Tablets 1 po qd Unknown Humalog Kwikpen 100U nit/ML Solution Pen-Inject inject 4 times daily with meals 14 units daily perla sliding scale, corrective 4-12 units. mdd 100 units Unknown Humulin R U-500 Kwikpen 500Unit/ML Solution Pen-Inject take 90 units twice a day 6ml Amy Donohue nce, DIRECTOR CARD Bumetanide 1mg Tablets 3 po b id Unknown Metolazone 2.5mg Tablets 1 po wednesday and wednesday Unknown Metoprolol Tartrate 100mg Tablets 1 pd Unknown Montelukast Sodium 10mg Tablets 1 po qd Unknown Isosorbide Mononitrate ER 60mg Tablets ER 24HR 1 by mouth every day Unknown 000 Potassium Chloride ER 20Meq Tablet s ER Take three pill twice a day, two at noon M, F Un known Magnesium 500mg Capsules 2 p o bid Unknown Aspir-Low 81mg Tablets DR 1 by mouth every day Unknown Immunizations Description No Information Available Vital Signs Date Vital Result Comment 01/23/2021 11:57am BP Systolic 116 mmHg BP Diastolic 76 mmHg Heart Rate 70 /min Height 68 inches 5'8" Weight 341.00 lb BMI (Body Mass Index) 51.8 kg/m2 O2 % BldC Oximetry 94 % 10/17/2020 1:49pm BP Systolic 128 mmHg BP Diastolic 72 mmHg Heart Rate 78 /min Body Temperature 97.0 F Height 68 inches 5'8" Weight 330.00 lb BMI (Body Mass Index) 50.2 kg/m2 O2 % BldC Oximetry 96 % Results Test Acquired Date Facility Test Result H/L Range Note Laboratory test finding 01/23/2021 In House Glucose 133 Hemoglobin A1c 6.5 Laboratory test finding 10/17/2020 In House Hemoglobin A1c 6.0 Glucose 98 Procedures Date Code Description Status 10/17/2020 05596 Office/Outpatient Established Mo d MDM 30-39 Min Completed 09/04/2020 47790 Office/Outpatient Established Mo d MDM 30-39 Min Completed 09/04/2020 [id number] Diabetic Foot Exam Completed Medical Devices Description No Information Available Encounters Type Date Location Provider Dx Diagnosis Office Visit 10/17/2020 1:45p DR. 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 insul in Julianne Arce MD 01/23/2021 N18.31 Chronic kidney disease, stage 3a Julianne Arce MD 01/23/2021 Z01.89 Encounter for other specified sp ecial examinations Julianne Arce MD 10/17/2020 E11.22 Type 2 diabetes mellitus with di abetic chronic kidney disease Julianne Arce MD 10/17/2020 Z79.4 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 insul in Julianne Arce MD 10/17/2020 N18.31 Chronic kidney disease, stage 3a Julianne Arce MD 10/17/2020 Z01.89 Encounter for other specified sp ecial examinations Julianne Arce MD 09/04/2020 E11.22 Type 2 diabetes mellitus with di abetic chronic kidney disease Amy Mcclellan NP 09/04/2020 Z79.4 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 Eating better. Current insulin regimen: Humulin U-500, 90units twice a day. Humalog per sliding scale taking 3 times daily- states only taking at breakfasttakes 8-10 units, Current medication : Trulicity 1.5 mg once a week He is not a candidate for Metformin . Risk of acidosis is too high.Not a candidate for SGLT-2 based on his reported history of GFR = 30. Vega mmendations:#1: Lower U5 100 down to 80 units twice a day to avoid quick service technician hypoglycemia.#2: Advised that the patient should be taking Humalog with breakfast and dinner. Take 8-10 units with each meal.Follow-up in 6 months. 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 * N18.31 Chronic kidney disease, stage 3a* Comments:* Nephrology note reviewed 08/12/20Labs done 08/12/20- Scr= 1.5, GFR= 47Low GFR limits potential for other oral medications. Hemoglobin hematocrit = 13/42 EGFR is stable and slightly improved. * Z01.89 Encounter for other specified special examinations* Comments:* Foot Exam performed 09/04/20 . Absent light touch and monofilament testing and vibration. * All * New Medication:* Benadryl Allergy Ultratabs 25 mg - 1 by mouth as needed * Tylenol Extra Strength 500 mg - 1 by mouth as needed * Follow up:* 3 month Functional Status Description No Information Available Mental Status Description No Information Available Referrals Description No Information Available
--- OUTSIDE RECORDS SUMMARY | 2021-04-15 10:57 | CCD ---
Author Author [facility] Organization [facility] Address Unknown Phone Unavailable Care Team Providers Care Script Supervisor Name Role Phone Hanny Guerrero Unavailable PROBLEMS Type Condition ICD9-CM Code DLF26-NV Code Onset Dates Condition S tatus W/U Status Risk SNOMED Code Notes Problem Ataxia R27.0 Active confirmed 61716919 Problem Acute gout of right foot, unspecified cause M10.9 Active confirmed 455466753 Problem Stage 3 chronic kidney disease N18.3 Active confir med 493966758 Problem Hx of deep venous thrombosis Z86.718 Active confirm ed 312394266 Problem Chronic kidney disease, stage IV (severe) N18.4 Active confirmed 951648169 Problem SK (seborrheic keratosis) L82.1 Active confirmed 020309564 Problem Sebaceous hyperplasia L73.8 Active confirmed 452746085 Problem Bilateral carotid artery stenosis I65.23 Active confirmed 936686646 Problem Venous insufficiency of both lower extremities I87 .2 Active confirmed 819694330 Problem Hyperlipidemia, unspecified hyperlipidemia type E7 8.5 Active confirmed 47234729 Problem Stasis dermatitis of both legs I87.2 Active confir med 78547023 Problem Coronary artery disease of n ative heart with stable angina pectoris, unspecified vessel or lesion type I25.118 Active confirmed 673813591 Problem Hypophosphatemia E83.39 Active confirmed 499 6001 Problem Melanocytic nevi of trunk D22.5 Active confirmed 638484452 Problem Melanocytic nevi of right upper limb, including shoulder D22.61 Active confirmed 745329670 Problem Other local lupus erythematosus L93.2 Active confi rmed 17042529 Problem Acne rosacea L71.9 Active confirmed 0178022 04 Problem Adverse effect of unspecifie d drugs, medicaments and biological substances, initial encounter T50.905A Active confirmed 47291131 Problem Type 2 diabetes mellitus with hyperglycemia E11.65 Active confirmed 62245201 Problem Essential hypertension I10 Active confirmed 46958171 Problem Dependence on other enabling machines and devices Z99.89 Active confirmed 941449318 Problem Encounter for therapeutic drug level monitoring Z5 1.81 Active confirmed 838590672 Very slightly above goal. 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 Active confirmed 740015 009 Problem Nocturnal leg cramps G47.62 Active confirmed 694510535 Problem Constipation, unspecified constipation type K59.00 Active confirmed 91344938 Problem Chronic diastolic heart failure I50.32 Active confi rmed 676175188 Problem Morbid obesity due to excess calories E66.01 Ac tive confirmed 806267160 Problem MENDEL (obstructive sleep apnea) G47.33 Active confirm ed 91256176 Problem Discitis of lumbar region M46.46 Active confirmed 549979684 Problem Type 2 diabetes mellitus wit h diabetic neuropathy, unspecified whether parts counterman insulin use E11.40 Active confirmed 66321010 2518693 Problem Pruritus L29.9 Active confirmed 931831127 Problem 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, unspecified laterality E11.3399 Active confirmed 402498645 Problem manager long term care (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 anticoagulants Z79.01 Active confirmed 340793095 Problem Melanocytic nevi of face D22.30 Active confirmed 383406106 Problem Type 2 diabetes mellitus with diabetic nephropathy E11.21 Active confirmed 570288813 Problem Melanocytic nevi of left upper limb, including shoulder D22.62 Active confirmed 393952535 Problem halfway current use of insulin Z79.4 Active conf irmed 450586731 Problem Stage 3b chronic kidney disease N18.32 Active confi rmed 871540752 Problem Hives L50.9 Active confirmed 488355835 Problem Chronic anticoagulation Z79.01 Active confirmed 636627087 Problem History of pulmonary embolus (PE) Z86.711 Active confirmed 033440072 Problem Allergic rhinitis, unspecified seasonality, unspecifie d trigger J30.9 Active confirmed 00693549 ALLERGIES Allergen (clinical drug ingredient) Drug/Non Drug Allergy do cumented on EMR Reaction Allergy Type Onset Date Status venlafaxine Venlafaxine HCl([facility] Code:[address]-73) Rash Drug A llergy Active spironolactone Spironolactone([facility] Code:[address]-93) G ynecomastia/breast itching Drug Allergy Active ENCOUNTERS from 1950 to 2021-02-24 Encounter Location Date Provider Diagnosis [place] [address] [facility] [phone] [place] [address] 24 Jan, 2021 Hanny Guerrero manager long term care (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 a nticoagulants Z79.01 IMMUNIZATIONS Vaccine Route Administration Date Status Influenza [...] Education Language: Question Answer Notes Languages spoken: Senegalese Sikhism: Question Answer Notes Sikhism 33 None Domestic Violence: Question Answer Notes [...] Notes Start Da te End Date Status HumaLOG 100 UNIT/ML as directed Subcutaneous sliding scale twice tala y Unknown Isosorbide Mononitrate ER 60 MG 1 tablet in the mornin g Orally Once a day for 30 day(s) Unknown OneTouch Delica Lancets 30G - 1 lancet subcutaneously Daily for 90 day(s) Dec, Unknown Vitamin D 50 MCG (1999 UT) 1 capsule Orally Once a day for 30 day(s) Unknown Multivitamin Adult - 1 tablet Orally Once a day for 30 day(s) Unknown Januvia 25 MG as directed Orally Unk nown Febuxostat 40 MG 1 tablet Orally Once a day for 30 day(s) Unknown Fish Oil 500 MG 1 capsule Orally Twice a day for 30 day(s) Unknown Atorvastatin Calcium 80 MG 1 tablet Orally Once a day for 30 day(s) Unknown Montelukast Sodium 10 MG 1 tablet Orally QHS Unknown Acetaminophen 500 MG 1 capsule as needed Orally once daily as needed Unknown Gabapentin 300 MG 1 capsule Orally Three times a day Unknown Calcium Carbonate 600 MG as directed Orally bid Unknown Aspirin 81 81 MG 1 tablet Orally Once a day for 30 day(s) Unknown aMILoride HCl 5 MG 2 tablet with food Orally BID Unknown Omeprazole 40 MG 1 capsule 30 minutes before morning meal Orally bid for 30 Days Unknown Potassium Chloride 15 MEQ as directed Orally 2 tablets dily MWF and 3 tablets BID ROW Unknown Magnesium 500 MG 2 capsules at bedtime as needed Orally twice a day Unknown Jantoven 7.5 MG 1 tablet Orally Rest OF Week for 30 Days 10mg Wed, 7.5 mg rest of week Oct, Unknown Warfarin Sodium 5 MG 2 tablets Orally Fridays for 30 day(s) Dec, Unknown Benadryl 25 MG 1 capsule at bedtime as needed Orally Once a day for 30 day(s) Unknown metOLazone 2.5 MG 1 tablet Orally MWF Unknown HumuLIN R U-500 KwikPen 500 UNIT/ML 100 units Subcutaneous bid Unknown PROCEDURES No Information RESULTS No Results REASON FOR VISIT No Information MEDICAL (GENERAL) HISTORY Type Description Date Medical History CKD, stage IV, and h/o IgA nephropathy, Dr. Ceron Medical History HTN Medical History HLD Medical History Peripheral neuropathy Medical History Grade I diastolic heart fail ure; normal systolic function; normal central pressures echo 2017; cardiac PET 2017, Dr. Tellez Medical History IDDM on humalin, humalog R kwikpen Medical History Chronic respiratory disease, Dr. Karin larkni Medical History MENDEL on CPAP, Dr. Terrell Medical History GERD, sees ENT, Dr. Landa in [place] Medical History Hx DVT Medical History kidney disease Medical History History of lupus durg rash Medical History Coronary Artery disease s/p stent placem ent 2019 Surgical History Cardiac cath; [place] 2014 Surgical History Cataract, R eye 2016 [...] Notes Treatment Notes Treatm ent Clinical Notes Jan, manager long term care (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 anticoagulants (ICD-1 0 - Z79.01) Current INR supratherapeutic at 3.4. Advised the patient to change Warfarin dose from 10mg on Fridays and 7.5mg ROW to 7.5mg daily with follow up INR in 1 week to monitor INR level. Advised the patient to contact us or seek immediate medical care if he has any easy bleeding, easy bruising, GI bleed, or head trauma PLAN OF TREATMENT Treatment Notes Assessment Notes Clinical Notes halfway (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 anticoagulants Current INR supratherapeutic at 3.4. Advised the patient to change Warfarin dose from 10mg on Fridays and 7.5mg ROW to 7.5mg daily with follow up INR in 1 week to monitor INR level. Advised the patient to contact us or seek immediate medical care if he has any easy bleeding, easy bruising, GI bleed, or head trauma Treatment Notes Test Name Order Date PT-INR Fingerstick 2021-02-07 Next Appt Details 1 Week Reason: Provider Name:Rodney Mijares, 2021-03-24 11 :00:00 AM, [address] [facility] [address] , [place], [address], Provider Name:Anastasia Reilly, 2021-12-03 03:00:00 PM, [address] [facility], , [place], [address], Insurance Providers Payer Name Payer Address Payer Phone Insured Name Patient Relati onship to Insured Coverage Start Date Coverage End Date MEDICARE Part A and B [address] [facility] [phone] NEHA SWENSON self MEDICAID [employer] [address] [facility] [id number] NEHA SWENSON self
--- OUTSIDE RECORDS SUMMARY | 2021-04-15 10:57 | CCD | Continuity of Care Document ---
Author Author Myriam Cobos Organization Unknown Address [address] [place] [address] Phone [phone] Care Team Providers Care Pusher Operator Name Role Phone Foster Bahena MD AUTM [phone] Marc Frey DO AUTM [phone] Sugey Szymanski MD AUTM [phone] Andres Tellez MD AUTM [phone] Problems Active Problems Provider Date Essential hypertension [...] SIG Qnty Indications Ordering Provide r Date Freestyle Mitzy 2/Sensor/Flash Glucose M onitoring System 2Sensor Misc use as directed to check blood sugars. 7units E11.65 Julianne Aparicio MD 01/24/2021 Freestyle Mitzy 2/[place]/Flash Glucose M onitoring System 2Reader Device use as directed to check blood sugars 1units E11.22 Julianne Aparicio MD 01/24/2021 Benadryl Allergy Ultratabs 25mg Ta blets 1 by mouth as needed Julianne Aparicio MD Tylenol Extra Strength 500mg Table ts 1 by mouth as needed 90tabs Julianne Aparicio MD 01/23/2021 Febuxostat 40mg Tablets 1 pd Julianne Aparicio MD 05/21/2020 Nitroglycerin 0.4mg/HR Patches 24HR prn Julianne Aparicio MD 05/21/2020 Onetoez Collins Lancets Fine 30G 3 0G Misc use as directed 4 times a day- on high dose insulin ( U-500) 400units Julianne Aparicio MD 08/17/2019 Atorvastatin Calcium 80mg Tablets 1 po qd Unknown Calcium 600 High Potency 600mg Tab lets 1 by mouth daily Unknown Gabapentin 300mg Capsules 1 p o tid Unknown Omeprazole 40mg Capsules DR 1 po qd Unknown Multivitamin Adult Tablets 1 by mouth every day Unknown [place]-3 1000mg Capsules 2 po qd Unknown Vitamin D3 50mcg (2000 Ut) Capsule s 1 po qd Unknown Allopurinol 300mg Tablets 1 p o qd Unknown Jantoven 5mg Tablets take one tablet everyday except wednesday Unknown 0 Amiloride HCL 5mg Tablets take two tablets twice a day Unknown Humalog Kwikpen 100U nit/ML Solution Pen-Inject inject 4 times daily with meals 14 units daily perla sliding scale, corrective 4-12 units. mdd 100 units Unknown Humulin R U-500 Kwikpen 500Unit/ML Solution Pen-Inject take 90 units twice a day 6ml Amy burnette, PHYSICAL THERAPIST CENTER MANAGER Bumetanide 1mg Tablets 3 po b id [...] Glucose 98 Procedures Date Code Description Status 01/23/2021 37756 Office/Outpatient Established Hi gh MDM 40-54 Min Completed 10/17/2020 64688 Office/Outpatient Established Mo d MDM 30-39 Min Completed 09/04/2020 91399 Office/Outpatient Established Mo d MDM 30-39 Min Completed 09/04/2020 650360711 Diabetic Foot Exam Completed Medical Devices Description No Information Available Encounters Type Date Location Provider Dx Diagnosis Office Visit 01/23/2021 11:45a DR. Julianne Aparicio MD E 11.22 Type 2 diabetes mellitus w diabetic chronic kidney disease Z79.4 senior care (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 i nsulin N18.31 Chronic kidney disease, stag e 3a Z01.89 Encounter for other specifie d special examinations K85.91 Acute pancreatitis with unin fected necrosis, unspecified Office Visit 10/17/2020 1:45p DR. Julianne Aparicio MD E 11.22 Type 2 diabetes mellitus w diabetic chronic kidney disease Z79.4 intermediate designer (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 i nsulin N18.31 Chronic kidney disease, stag e 3a Z01.89 Encounter for other specifie d special examinations Office Visit 09/04/2020 10:45a DR. Julianne Mcclellan, Nik P E11.22 Type 2 diabetes mellitus w diabetic chronic kidney disease Z79.4 senior care (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 i nsulin N18.31 Chronic kidney disease, stag e 3a Z01.89 Encounter for other specifie d special examinations Assessments Date Code Description Provider 01/23/2021 E11.22 Type 2 diabetes mellitus with di abetic chronic kidney disease Julianne Aparicio MD 01/23/2021 Z79.4 intermediate designer (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 insul in Julianne Aparicio MD 01/23/2021 N18.31 Chronic kidney disease, stage 3a Julianne Aparicio MD 01/23/2021 Z01.89 Encounter for other specified sp ecial examinations Julianne Aparicio MD 01/23/2021 K85.91 Acute pancreatitis with uninfect ed necrosis, unspecified Julianne Aparicio MD 10/17/2020 E11.22 Type 2 diabetes mellitus with di abetic chronic kidney disease Julianne Aparicio MD 10/17/2020 Z79.4 senior care (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 insul in Julianne Aparicio MD 10/17/2020 N18.31 Chronic kidney disease, stage 3a Julianne Aparicio MD 10/17/2020 Z01.89 Encounter for other specified sp ecial examinations Julianne Aparicio MD 09/04/2020 E11.22 Type 2 diabetes mellitus with di abetic chronic kidney disease Amy Mcclellan NP 09/04/2020 Z79.4 senior care (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 insul in Amy Mcclellan, DELMAR 09/04/2020 N18.31 Chronic kidney disease, stage 3a Amy Mcclellan NP 09/04/2020 Z01.89 Encounter for other specified sp ecial examinations Amy Mcclellan NP Plan of Treatment Future Appointment(s):* 04/28/2021 11:45 am - Julianne Aparicio MD at DR. Julianne Aparicio 01/23/2021 - Julianne Aparicio MD* E11.22 Type 2 diabetes mellitus with diabetic chronic kidney disease* Comments:* in office A1c= 6.5 , 6% down a lot from 9.3 %, 10.9%, 9.1%, 9.7%, 8.4% , 11%)bs=98Pt stopped into office 09/03/20 stating that he has been experiencing low BSMeter downloaded and reviewed- Glucometer downloaded and reviewedFasting range 801 60 with an average of 120Bedtime range 2002 50 with an average of 280Current insulin regimen: Humulin U-500, 100units twice a day. Humalog per sliding scale taking 3 times daily- states only taking at breakfasttakes 8-10 units, Current medication : Trulicity 1.5 mg once a week- d/terry 12/2020 after pancreatitis ( we were unaware that he was getting januvia from nephrology) He is not a candidate for Metformin . Risk of acidosis is too high.Not a candidate for SGLT-2 based on his reported history of GFR = 30. Recommendations:#1: Patient was advised that he should be taking his Humalog at supper time not at bedtime. Large doses of rapid acting insulin can cause hypoglycemia in the middle the night.We had advised him of visit is October appointment. Reemphasized again today.Follow-up in 4 months. * Follow up:* 3 months * Z79.4 intermediate designer (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 insulin* Comments:* Doses adjusted today. * N18.31 Chronic kidney disease, stage 3a* Comments:* Nephrology note reviewed 08/12/20Labs done 12/2020 ,, GFR= 38Low GFR limits potential for other oral medications. * Z01.89 Encounter for other specified special examinations* Comments:* Foot Exam performed 09/04/20 . Absent light touch and monofilament testing and vibration. * K85.91 Acute pancreatitis with uninfected necrosis, unspecified* Comments:* Hospital records were reviewed. He was admitted to the hospital with presumed pancreatitis with nausea cachexia and acute renal insufficiency. Lipase = 1328 clearly elevated. Both his Januvia and Trulicity were discontinued. I explained to the patient that we were not aware that he had been started on Januvia after his April 2020 hospitalization. We had been prescribing the Trulicity, nephrology has been prescribing the Januvia. Both drugs carry the risk of pancreatitis. Pancreatitis is also elevated in diabetic populations versus normal populations. At this point in time he cannot take either DP P4 inhibitors or GLP-1 agents and will be dependent on insulin. * All * New Medication:* Benadryl Allergy Ultratabs 25 mg - 1 by mouth as needed * Tylenol Extra Strength 500 mg - 1 by mouth as needed * Follow up:* 3 month Functional Status Description No Information Available Mental Status Description No Information Available Referrals Description No Information Available
--- OUTSIDE RECORDS SUMMARY | 2021-04-15 10:57 | CCD ---
Author Author [facility] Organization [facility] Address Unknown Phone Unavailable Care Team Providers Care Wastewater Superintendent Name Role Phone Rodney Mijares Unavailable PROBLEMS Type Condition ICD9-CM Code [id number] Code Onset Dates Condition S tatus W/U Status Risk SNOMED Code Notes Problem Ataxia R27.0 Active confirmed 79068866 Problem Acute gout of right foot, unspecified cause M10.9 Active confirmed 539470456 Problem Stage 3 chronic kidney disease N18.3 Active confir med 600506478 Problem Hx of deep venous thrombosis Z86.718 Active confirm ed 222202418 Problem Chronic kidney disease, stage IV (severe) N18.4 Active confirmed 748443735 Problem SK (seborrheic keratosis) L82.1 Active confirmed 969990326 Problem Sebaceous hyperplasia L73.8 Active confirmed 903057927 Problem Bilateral carotid artery stenosis I65.23 Active confirmed 234894054 Problem Venous insufficiency of both lower extremities I87 .2 Active confirmed 103129877 Problem Hyperlipidemia, unspecified hyperlipidemia type E7 8.5 Active confirmed 28909596 Problem Stasis dermatitis of both legs I87.2 Active confir med 21544550 Problem Coronary artery disease of n ative heart with stable angina pectoris, unspecified vessel or lesion type I25.118 Active confirmed 482680041 Problem Hypophosphatemia E83.39 Active confirmed 499 6001 Problem Melanocytic nevi of trunk D22.5 Active confirmed 627421874 Problem Melanocytic nevi of right upper limb, including shoulder D22.61 Active confirmed 921567993 Problem Other local lupus erythematosus L93.2 Active confi rmed 62704706 Problem Acne rosacea L71.9 Active confirmed 0298815 04 Problem Adverse effect of unspecifie d drugs, medicaments and biological substances, initial encounter T50.905A Active confirmed 36585998 Problem Type 2 diabetes mellitus with hyperglycemia E11.65 Active confirmed 54186808 Problem Essential hypertension I10 Active confirmed 60735080 Problem Dependence on other enabling machines and devices Z99.89 Active confirmed 235150231 Problem Encounter for therapeutic drug level monitoring Z5 1.81 Active confirmed 051066920 Very slightly above goal. 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 Active confirmed 149036 009 Problem Nocturnal leg cramps G47.62 Active confirmed 670930114 Problem Constipation, unspecified constipation type K59.00 Active confirmed 25289007 Problem Chronic diastolic heart failure I50.32 Active confi rmed 764118905 Problem Morbid obesity due to excess calories E66.01 Ac tive confirmed 045434078 Problem MENDEL (obstructive sleep apnea) G47.33 Active confirm ed 11073968 Problem Discitis of lumbar region M46.46 Active confirmed 080322374 Problem Type 2 diabetes mellitus wit h diabetic neuropathy, unspecified whether termite treater insulin use E11.40 Active confirmed 32533552 8621370 Problem Pruritus L29.9 Active confirmed 063264872 Problem 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, unspecified laterality E11.3399 Active confirmed 929790130 Problem salvage determiner (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 anticoagulants Z79.01 Active confirmed 716354603 Problem Melanocytic nevi of face D22.30 Active confirmed 317973768 Problem Type 2 diabetes mellitus with diabetic nephropathy E11.21 Active confirmed 621664084 Problem Melanocytic nevi of left upper limb, including shoulder D22.62 Active confirmed 058846660 Problem detention current use of insulin Z79.4 Active conf irmed 424761375 Problem Stage 3b chronic kidney disease N18.32 Active confi rmed 827533833 Problem Hives L50.9 Active confirmed 515167456 Problem Chronic anticoagulation Z79.01 Active confirmed 310831511 Problem History of pulmonary embolus (PE) Z86.711 Active confirmed 329353094 Problem Allergic rhinitis, unspecified seasonality, unspecifie d trigger J30.9 Active confirmed 36185438 ALLERGIES Allergen (clinical drug ingredient) Drug/Non Drug Allergy do cumented on EMR Reaction Allergy Type Onset Date Status venlafaxine Venlafaxine HCl([facility] Code:[address]-61) Rash Drug A llergy Active spironolactone Spironolactone([facility] Code:[address]-45) G ynecomastia/breast itching Drug Allergy Active ENCOUNTERS from 1950 to 2021-04-09 Encounter Location Date Provider Diagnosis [address] [facility] [phone] [place] [address] Mar, Rodney Mijares salvage determiner current use of ins ulin Z79.4 IMMUNIZATIONS Vaccine Route Administration Date Status Moderna [...] Education Language: Question Answer Notes Languages spoken: [place] Tenriism: Question Answer Notes Tenriism 33 None Domestic Violence: Question Answer Notes [...] Notes Start Da te End Date Status Jantoven 7.5 MG 1 tablet Orally Rest OF Week 10mg Fri, 7.[address] of week 10 Oct, 2020 Active Allopurinol 300 MG 1 tablet Orally Once a day Active Fish Oil 500 MG 1 capsule Orally Twice a day for 30 day(s) Active Atorvastatin Calcium 80 MG 1 tablet Orally Once a day Active Isosorbide Mononitrate ER 60 MG 1 tablet in the morning Orally Once a day Active Metoprolol Tartrate 100 MG 1 tablet with food Orally ONCE A DAY Active Bumetanide 1 MG 3 tablet Orally BID Active aMILoride HCl 5 MG 2 tablet with food Orally BID Active Magnesium 500 MG 2 capsules at bedtime as needed Orally twice a day Active Januvia 25 MG as directed Orally Not -Taking Montelukast Sodium 10 MG 1 tablet Orally QHS for 30 days Active Warfarin Sodium 5 MG 2 tablets Orally Fridays for 30 day(s) Dec, Active Calcium Carbonate 600 MG as directed Orally bid Active metOLazone 2.5 MG 1 tablet Orally MWF Active Gabapentin 300 MG 1 capsule Orally Three times a day Active Omeprazole 40 MG 1 capsule 30 minutes before morning meal Orally bid for 30 Days Active Potassium Chloride 15 MEQ as directed Orally 2 tablets dily MWF and 3 tablets BID ROW Active Aspirin 81 81 MG 1 tablet Orally Once a day Active Acetaminophen 500 MG 1 capsule as needed Orally once daily as needed Not-Taking Multivitamin Adult - 1 tablet Orally Once a day for 30 day(s) Active Benadryl 25 MG 1 capsule at bedtime as needed Orally Once a day for 30 day(s) Not-Taking OneTouch Delica Lancets 30G - 1 lancet subcutaneously Daily for 90 day(s) Dec, Unknown HumaLOG 100 UNIT/ML as directed Subcutaneous sliding scale twice tala y Active Vitamin D 50 MCG (1999 [place]) 1 capsule Orally Once a day for 30 day(s) Active Febuxostat 40 MG 1 tablet Orally Once a day Active HumuLIN R U-500 KwikPen 500 UNIT/ML 100 units Subcutaneous bid Active PROCEDURES No Information RESULTS Component Value Reference Range PT-INR Fingerstick Reviewed date:04/09/2021 15:27:55 Interpretation: Performing Lab:Count Includes [facility], [place] [address] INR 2.5 Verified Patient's Name and CForney Current Dose 1 5 mg thur-sun Current Dose 2 7.5 mg M-W Tab Strength 5 mg tabs Indication for Anticoagulation DVT Recent Bleeding Internal QC Acceptable (Y/N) home test Therapeutic Range 2-3 Education Given (Date / Initials) New Dose 1 none New Dose 2 Weekly Total Next PT-INR - - REASON FOR VISIT PTINR home test results MEDICAL (GENERAL) HISTORY Type Description Date Medical [...] History GERD, sees ENT, Dr. Landa in [place] Medical History Hx DVT Medical History kidney disease Medical History History of lupus durg rash Medical History Coronary Artery disease s/p stent placem ent 2019 Surgical History Cardiac cath; Kisha 2014 Surgical History Cataract, R eye 2015 Surgical History Heart Cath 10/26/20192019 Surgical History Cataract L eye 2018 Hospitalization History CHF/MENDEZ 04/2016 Hospitalization History orthostasis 05/2016 Hospitalization History spinal infection 05/02/2020-05/20 Hospitalization History pancriatitis 12/2020 Goals Section No Information Health Concerns No Information MEDICAL EQUIPMENT No Information MENTAL STATUS No Information FUNCTIONAL STATUS No Information ASSESSMENTS Encounter Date Diagnosis Assessment Notes Treatment Notes Treatm ent Clinical Notes Mar, salvage determiner current use of insulin (ICD-10 - Z79.4 ) PLAN OF TREATMENT Next Appt Details Provider Name:Anastasia Rodriguez Tommie, 2021-12-03 03:00:00 PM, [address] [place] [address], , [place], [address], Insurance Providers Payer Name Payer Address Payer Phone Insured Name Patient Relati onship to Insured Coverage Start Date Coverage End Date MEDICAID [address] [facility] [id number] NEHA SWENSON [facility] MEDICARE Part A and B [address] [facility] [id number] NEHA SWENSON self
--- OUTSIDE RECORDS SUMMARY | 2021-04-15 10:57 | CCD | Continuity of Care Document ---
Author Author Myriam Cobos Organization Unknown Address [address] [place] [address] Phone [phone] Care Team Providers Care Tag Clerk Name Role Phone Foster Bahena MD AUTM [phone] Marc Frey DO AUTM [phone] uSgey Szymanski MD AUTM [phone] Andres Tellez MD AUTM [phone] Problems Active Problems Provider Date Essential hypertension [...] E11.65 Julianne Aparicio MD 01/24/2021 Freestyle Mitzy 2/[place]/Flash Glucose M onitoring System 2Reader Device use [...] Tablets 1 by mouth every day Unknown [place]-3 1000mg Capsules 2 po qd Unknown Vitamin [...] units twice a day 6ml Amy burnette, COMMERCIAL REAL ESTATE ASSISTANT Bumetanide 1mg Tablets 3 po b id [...] 98 Procedures Date Code Description Status 01/23/2021 76719 Office/Outpatient Established Hi gh MDM 40-54 Min Completed 10/17/2020 79415 Office/Outpatient Established Mo d MDM 30-39 Min Completed 09/04/2020 13727 Office/Outpatient Established Mo d MDM 30-39 Min Completed 09/04/2020 165821974 Diabetic Foot Exam Completed Medical Devices Description No Information Available Encounters Type Date Location Provider Dx Diagnosis Office Visit 01/23/2021 11:45a DR. Julianne Aparicio MD E 11.22 Type 2 diabetes mellitus w diabetic chronic kidney disease Z79.4 shelter (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 i nsulin N18.31 Chronic kidney disease, stag e 3a Z01.89 Encounter for other specifie d special examinations K85.91 Acute pancreatitis with unin fected necrosis, unspecified Office Visit 10/17/2020 1:45p DR. Julianne Aparicio MD E 11.22 Type 2 diabetes mellitus w diabetic chronic kidney disease Z79.4 termite helper (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 i nsulin N18.31 Chronic kidney disease, stag e 3a Z01.89 Encounter for other specifie d special examinations Office Visit 09/04/2020 10:45a DR. Julianne Mcclellan, Nik P E11.22 Type 2 diabetes mellitus w diabetic chronic kidney disease Z79.4 shelter (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 i nsulin N18.31 Chronic kidney disease, stag e 3a Z01.89 Encounter for other specifie d special examinations Assessments Date Code Description Provider 01/23/2021 E11.22 Type 2 diabetes mellitus with di abetic chronic kidney disease Julianne Aparicio MD 01/23/2021 Z79.4 termite helper (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 insul in Julianne Aparicio MD 01/23/2021 N18.31 Chronic kidney disease, stage 3a Julianne Aparicio MD 01/23/2021 Z01.89 Encounter for other specified sp ecial examinations Julianne Aparicio MD 01/23/2021 K85.91 Acute pancreatitis with uninfect ed necrosis, unspecified Julianne Aparicio MD 10/17/2020 E11.22 Type 2 diabetes mellitus with di abetic chronic kidney disease Julianne Aparicio MD 10/17/2020 Z79.4 shelter (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 insul in Julianne Aparicio MD 10/17/2020 N18.31 Chronic kidney disease, stage 3a Julianne Aparicio MD 10/17/2020 Z01.89 Encounter for other specified sp ecial examinations Julianne Aparicio MD 09/04/2020 E11.22 Type 2 diabetes mellitus with di abetic chronic kidney disease Amy Mcclellan NP 09/04/2020 Z79.4 shelter (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 insul in Amy Mcclellan, DELMAR 09/04/2020 N18.31 Chronic kidney disease, stage 3a Amy Mcclellan NP 09/04/2020 Z01.89 Encounter for other specified sp ecial examinations Amy Mcclellan NP Plan of Treatment Future Appointment(s):* 04/28/2021 11:45 am - Julianne Aparicio MD at DR. Julianne Aparicio 01/23/2021 - Julianne pAaricio MD* E11.22 Type 2 diabetes mellitus with [...] * Follow up:* 3 months * Z79.4 termite helper (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 insulin* Comments:* Doses adjusted [...]
--- OUTSIDE RECORDS SUMMARY | 2021-04-15 10:57 | CCD | Continuity of Care Document ---
Author Author Myriam ABRAMS M.D. Organization Unknown Address [address] [place] [address] Phone [phone] Care Team Providers Care Glass Bender Name Role Phone Rodney Mijares DO AUTM [phone] Problems Active Problems Provider Date Neck pain Naya Abrams M.D. 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 Onset: Low back pain Naya Abrams M.D. Onset: 03/09/2019 Neurogenic claudication Naya Abrams M.D. Onset: 9 Abnormal gait Naya Abrams M.D. Onset: 03/09/2019 Nervous system symptoms Naya Abrams M.D. Onset: 9 Orthostatic hypotension Naya Abrams M.D. Onset: 9 Bilateral carpal tunnel syndrome Naya Abrams M.D. Onset: 04/12/2019 Polyneuropathy due to diabetes mellitus Naya Abrams M.D. Onset: 04/12/2019 Social History Type Date Description Comments Sex Unknown Tobacco Use Start: Unknown End: Unknown Patient is a former smoker Allergies, Adverse Reactions, Alerts Active Allergies Criticality Reaction | Severity Comments Date Spironolactone Unable to assess criticality 03/09/2019 Venlafaxine Unable to assess criticality Rash 02/06/2020 Medications Active Medications SIG Qnty Indications Ordering Provide r Date Gabapentin 300mg Capsules 1 by mouth tid. 270caps Naya Abrams M.D. 02/07/2021 Alprazolam 0.5mg Tablets 1 tab by mouth half an hour before mri scan. may repeat once if needed. 2tabs Naya Abrams M.D. 03/09/2019 Immunizations Description No Information Available Vital Signs Date Vital Result Comment 03/09/2019 9:16am BP Systolic 120 mmHg BP Diastolic 70 mmHg Heart Rate 74 /min Respiratory Rate 14 /min Height 68 inches 5'8" Weight 215.00 lb BMI (Body Mass Index) 32.7 kg/m2 [place] Body Weight 154 lb Results Description No Information Available Procedures Date Code Description Status 02/07/2021 66581 Office/Outpatient Established Mo d MDM 30-39 Min Completed Medical Devices Description No Information Available Encounters Type Date Location Provider Dx Diagnosis Office Visit 02/07/2021 10:15a [facility] Alcides Bellamy M48.062 Spinal stenosis, lumbar region with neurogenic claudication R26.0 Ataxic gait I95.1 Orthostatic hypotension M54.2 Cervicalgia M43.02 Spondylolysis, cervical lani on M54.5 Low back pain E11.42 Type 2 diabetes mellitus wit h diabetic polyneuropathy G56.03 Carpal tunnel syndrome, bila teral upper limbs Assessments Date Code Description Provider 02/07/2021 M48.062 Spinal stenosis, lumbar region w ith neurogenic claudication Naya Abrams M.D. 02/07/2021 R26.0 Ataxic gait Naya Abrams M.D. 02/07/2021 I95.1 Orthostatic hypotension Naya james M.D. 02/07/2021 M54.2 Cervicalgia Naya Abrams M.D. 02/07/2021 M43.02 Spondylolysis, cervical region M warren Abrams M.D. 02/07/2021 M54.5 Low back pain Naya Abrams M.D. 02/07/2021 E11.42 Type 2 diabetes mellitus with di abetic polyneuropathy Naya Abrams M.D. 02/07/2021 G56.03 Carpal tunnel syndrome, bilatera l upper limbs Naya Abrams M.D. Plan of Treatment Future Appointment(s):* 02/10/2022 11:00 am - Naya Abrams M.D. at [facility] Functional Status Description No Information Available Mental Status Description No Information Available Referrals Description No Information Available
--- OUTSIDE RECORDS SUMMARY | 2021-04-15 10:57 | CCD | Continuity of Care Document ---
Author Author Myriam ARCE MD Organization Unknown Address [address] [facility] [place] [address] Phone [phone] Care Team Providers Care Electrical Electronics Engineers Name Role Phone Foster Bahena MD AUTM [phone] Marc Frey DO AUTM [phone] Sugey Szymanski MD AUTM [phone] Andres Tellez MD AUTM [phone] Problems Active Problems Provider Date Essential hypertension [...] to check blood sugars. 7units E11.65 Julianne Arce MD 01/24/2021 Freestyle Mitzy 2/[place]/Flash Glucose M onitoring System 2Reader Device use as directed to check blood sugars 1units E11.22 Julianne Arce MD 01/24/2021 Benadryl Allergy Ultratabs 25mg Ta blets 1 by mouth as needed Julianne Arce MD Tylenol Extra Strength 500mg Table ts 1 by mouth as needed 90tabs Julianne Arce MD 01/23/2021 Febuxostat 40mg Tablets 1 pd Julianne Arce MD 05/21/2020 Nitroglycerin 0.4mg/HR Patches 24HR prn Julianne Arce MD 05/21/2020 Onetouch Dennis Lancets Fine 30G 3 0G Misc use as directed 4 times a day- on high dose insulin ( U-500) 400units Julianne Arce MD 08/17/2019 Atorvastatin Calcium 80mg Tablets 1 po qd Unknown Calcium 600 High Potency 600mg Tab lets 1 by mouth daily Unknown Gabapentin 300mg Capsules 1 p o tid Unknown Omeprazole 40mg Capsules DR 1 po qd Unknown Multivitamin Adult Tablets 1 by mouth every day Unknown [place]-3 1000mg Capsules 2 po qd Unknown [...] units twice a day 6ml Amy burnette, VIDEO SOFTWARE ENGINEER Bumetanide 1mg Tablets 3 po b id [...] o bid Unknown Aspir-Low 81mg Tablets DR Mullins by mouth every day Unknown Immunizations Description [...] 98 Procedures Date Code Description Status 01/23/2021 91111 Office/Outpatient Established Hi gh MDM 40-54 Min Completed 10/17/2020 82822 Office/Outpatient Established Mo d MDM 30-39 Min Completed 09/04/2020 72422 Office/Outpatient Established Mo d MDM 30-39 Min Completed 09/04/2020 089055531 Diabetic Foot Exam Completed Medical Devices Description No Information Available Encounters Type Date Location Provider Dx Diagnosis Office Visit 01/23/2021 11:45a DR. Julianne Arce MD E 11.22 Type 2 diabetes mellitus w diabetic chronic kidney disease Z79.4 [facility] (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 i nsulin N18.31 Chronic kidney disease, stag e 3a Z01.89 Encounter for other specifie d special examinations K85.91 Acute pancreatitis with unin fected necrosis, unspecified Office Visit 10/17/2020 1:45p DR. Julianne Arce MD E 11.22 Type 2 diabetes mellitus w diabetic chronic kidney disease Z79.4 [facility] (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 i nsulin N18.31 Chronic kidney disease, stag e 3a Z01.89 Encounter for other specifie d special examinations Office Visit 09/04/2020 10:45a DR. Julianne Mcclellan, N P E11.22 Type 2 diabetes mellitus w diabetic chronic kidney disease Z79.4 [facility] (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 i nsulin N18.31 Chronic kidney disease, stag e 3a Z01.89 Encounter for other specifie d special examinations Assessments Date Code Description Provider 01/23/2021 E11.22 Type 2 diabetes mellitus with di abetic chronic kidney disease Julianne Arce MD 01/23/2021 Z79.4 keno terminal operator (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 insul in Julianne Arce MD 01/23/2021 N18.31 Chronic kidney disease, stage 3a Julianne Arce MD 01/23/2021 Z01.89 Encounter for other specified sp ecial examinations Julianne Arce MD 01/23/2021 K85.91 Acute pancreatitis with uninfect ed necrosis, unspecified Julianne Arce MD 10/17/2020 E11.22 Type 2 diabetes mellitus with di abetic chronic kidney disease Julianne Arce MD 10/17/2020 Z79.4 keno terminal operator (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 insul in Julianne Arce MD 10/17/2020 N18.31 Chronic kidney disease, stage 3a Julianne Arce MD 10/17/2020 Z01.89 Encounter for other specified sp ecial examinations Julianne Arce MD 09/04/2020 E11.22 Type 2 diabetes mellitus with di abetic chronic kidney disease Amy Mcclellan NP 09/04/2020 Z79.4 [facility] (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 insul in Amy Mcclellan, VIDEO SOFTWARE ENGINEER 09/04/2020 N18.31 Chronic kidney disease, stage 3a Amy Mcclellan, DELMAR 09/04/2020 Z01.89 Encounter for other specified sp ecial examinations Amy Mcclellan NP Plan of Treatment Future Appointment(s):* 04/28/2021 11:45 am - Julianne Arce MD at DR. Julianne Arce 01/23/2021 - Julianne Arce MD* E11.22 Type 2 diabetes mellitus with diabetic chronic kidney disease* Comments:* in office A1c= 6.5 , 6% down a lot from 9.3 %, 10.9%, 9.1%, 9.7%, 8.4% , 11%)bs=98Pt stopped into office 09/03/20 stating that he has been experiencing low BSMeter downloaded and reviewed- Glucometer downloaded and reviewedFasting range 801 60 with an average of 120Bedtime range 2003 50 with an average of 280Current insulin [...] * Follow up:* 3 months * Z79.4 keno terminal operator (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 insulin* Comments:* Doses adjusted [...]
--- OUTSIDE RECORDS SUMMARY | 2021-04-15 10:57 | CCD ---
Author Author [facility] Organization [facility] Address Unknown Phone Unavailable Care Team Providers Care Cooling Pan Tender Name Role Phone Maria De Jesus Kelly Unavailable PROBLEMS Type Condition ICD9-CM Code [id number] Code Onset Dates Condition S tatus W/U Status Risk SNOMED Code Notes Problem Ataxia R27.0 Active confirmed 63232658 Problem Acute gout of right foot, unspecified cause M10.9 Active confirmed 216137378 Problem Stage 3 chronic kidney disease N18.3 Active confir med 209713499 Problem Hx of deep venous thrombosis Z86.718 Active confirm ed 077119269 Problem Chronic kidney disease, stage IV (severe) N18.4 Active confirmed 846457143 Problem SK (seborrheic keratosis) L82.1 Active confirmed 245614723 Problem Sebaceous hyperplasia L73.8 Active confirmed 519073750 Problem Bilateral carotid artery stenosis I65.23 Active confirmed 300963451 Problem Venous insufficiency of both lower extremities I87 .2 Active confirmed 717910048 Problem Hyperlipidemia, unspecified hyperlipidemia type E7 8.5 Active confirmed 28214302 Problem Stasis dermatitis of both legs I87.2 Active confir med 66956292 Problem Coronary artery disease of n ative heart with stable angina pectoris, unspecified vessel or lesion type I25.118 Active confirmed 524596466 Problem Hypophosphatemia E83.39 Active confirmed 499 6001 Problem Melanocytic nevi of trunk D22.5 Active confirmed 581399419 Problem Melanocytic nevi of right upper limb, including shoulder D22.61 Active confirmed 976868304 Problem Other local lupus erythematosus L93.2 Active confi rmed 17741617 Problem Acne rosacea L71.9 Active confirmed 2604718 04 Problem Adverse effect of unspecifie d drugs, medicaments and biological substances, initial encounter T50.905A Active confirmed 60889954 Problem Type 2 diabetes mellitus with hyperglycemia E11.65 Active confirmed 38366835 Problem Essential hypertension I10 Active confirmed 30728388 Problem Dependence on other enabling machines and devices Z99.89 Active confirmed 152010822 Problem Encounter for therapeutic drug level monitoring Z5 1.81 Active confirmed 367127651 Very slightly above goal. 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.811 Active confirmed 781760 009 Problem Nocturnal leg cramps G47.62 Active confirmed 000158980 Problem Constipation, unspecified constipation type K59.00 Active confirmed 27682524 Problem Chronic diastolic heart failure I50.32 Active confi rmed 991728103 Problem Morbid obesity due to excess calories E66.01 Ac tive confirmed 627068849 Problem MENDEL (obstructive sleep apnea) G47.33 Active confirm ed 08571796 Problem Discitis of lumbar region M46.46 Active confirmed 668841425 Problem Type 2 diabetes mellitus wit h diabetic neuropathy, unspecified whether senior care insulin use E11.40 Active confirmed 34591872 1165861 Problem Pruritus L29.9 Active confirmed 696365666 Problem 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, unspecified laterality E11.3399 Active confirmed 945041538 Problem 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 Active confirmed 852195027 Problem Melanocytic nevi of face D22.30 Active confirmed 715044822 Problem Type 2 diabetes mellitus with diabetic nephropathy E11.21 Active confirmed 460999253 Problem Melanocytic nevi of left upper limb, including shoulder D22.62 Active confirmed 295399215 Problem shelter current use of insulin Z79.4 Active conf irmed 065137124 Problem Stage 3b chronic kidney disease N18.32 Active confi rmed 128350800 Problem Hives L50.9 Active confirmed 709960332 Problem Chronic anticoagulation Z79.01 Active confirmed 367433119 Problem History of pulmonary embolus (PE) Z86.711 Active confirmed 673063704 Problem Allergic rhinitis, unspecified seasonality, unspecifie d trigger J30.9 Active confirmed 50087266 ALLERGIES Allergen (clinical drug ingredient) Drug/Non Drug Allergy do cumented on EMR Reaction Allergy Type Onset Date Status venlafaxine Venlafaxine HCl([facility] Code:[address]-21) Rash Drug A llergy Active spironolactone Spironolactone([facility] Code:[address]-63) G ynecomastia/breast itching Drug Allergy Active ENCOUNTERS from 1950 to 2021-02-19 Encounter Location Date Provider Diagnosis [address] [facility] [phone] [place] [address] 08 Jan, 2021 Maria De Jesus Kelly Encounter for therapeutic dr belgica davis monitoring Z51.81 and shelter current use of insulin Z79.4 IMMUNIZATIONS Vaccine Route Administration Date Status Influenza [...] Education Language: Question Answer Notes Languages spoken: Sudanese Lutheran: Question Answer Notes Lutheran 33 None Domestic Violence: Question Answer Notes [...] Information RESULTS No Results REASON FOR VISIT home INR MEDICAL (GENERAL) HISTORY Type Description Date Medical History CKD, stage IV, and h/o IgA nephropathy, Dr. Ceron Medical History HTN Medical History HLD Medical History Peripheral neuropathy Medical History Grade I diastolic heart fail ure; normal systolic function; normal central pressures echo 2017; cardiac PET 2017, Dr. Tellez Medical History IDDM on humalin, humalog R kwikpen Medical History Chronic respiratory disease, Dr. Youngbl ood Medical History MENDEL on CPAP, Dr. Terrell Medical History GERD, sees ENT, Dr. Landa in [place] Medical History Hx DVT Medical History kidney disease Medical History History of lupus durg rash Medical History Coronary Artery disease s/p stent placem ent 2019 Surgical History Cardiac cath; [place] 2014 Surgical History Cataract, R eye 2016 [...] Treatment Notes Treatm ent Clinical Notes Jan, Encounter for therapeutic drug level mon itoring (ICD-10 - Z51.81) Jan, termite control representative current use of insulin (ICD-10 - Z79.4 ) PLAN OF TREATMENT Future Test Test Name Order Date PT-INR Fingerstick [id number] Next Appt Details Provider Name:Anastasia Reilly, 2021-12-03 03:00:00 PM, [address] [place] [address], , [place], [place], [facility], Insurance Providers Payer Name Payer Address Payer Phone Insured Name Patient Relati onship to Insured Coverage Start Date Coverage End Date MEDICARE Part A and B [address] [facility] [phone] NEHA SWENSON MEDICAID [facility] [employer] [address] [facility] [address] NEHA SWENSON
--- OUTSIDE RECORDS SUMMARY | 2021-04-15 10:57 | CCD ---
Author Author [facility] Organization [facility] Address Unknown Phone Unavailable Care Team Providers Care Cash Applications Manager Name Role Phone Rodney Mijares Unavailable PROBLEMS Type Condition ICD9-CM Code [id number] Code Onset Dates Condition S tatus W/U Status Risk SNOMED Code Notes Problem Ataxia R27.0 Active confirmed 04054139 Problem Acute gout of right foot, unspecified cause M10.9 Active confirmed 314308323 Problem Stage 3 chronic kidney disease N18.3 Active confir med 783932990 Problem Hx of deep venous thrombosis Z86.718 Active confirm ed 789484326 Problem Chronic kidney disease, stage IV (severe) N18.4 Active confirmed 813717934 Problem SK (seborrheic keratosis) L82.1 Active confirmed 370778921 Problem Sebaceous hyperplasia L73.8 Active confirmed 772291737 Problem Bilateral carotid artery stenosis I65.23 Active confirmed 456829962 Problem Venous insufficiency of both lower extremities I87 .2 Active confirmed 969374092 Problem Hyperlipidemia, unspecified hyperlipidemia type E7 8.5 Active confirmed 19955692 Problem Stasis dermatitis of both legs I87.2 Active confir med 08693793 Problem Coronary artery disease of n ative heart with stable angina pectoris, unspecified vessel or lesion type I25.118 Active confirmed 171198778 Problem Hypophosphatemia E83.39 Active confirmed 499 6001 Problem Melanocytic nevi of trunk D22.5 Active confirmed 133550539 Problem Melanocytic nevi of right upper limb, including shoulder D22.61 Active confirmed 295947102 Problem Other local lupus erythematosus L93.2 Active confi rmed 49500249 Problem Acne rosacea L71.9 Active confirmed 6119200 04 Problem Adverse effect of unspecifie d drugs, medicaments and biological substances, initial encounter T50.905A Active confirmed 47180948 Problem Type 2 diabetes mellitus with hyperglycemia E11.65 Active confirmed 55142856 Problem Essential hypertension I10 Active confirmed 52937360 Problem Dependence on other enabling machines and devices Z99.89 Active confirmed 334891243 Problem Encounter for therapeutic drug level monitoring Z5 1.81 Active confirmed 380059313 Very slightly above goal. 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 Active confirmed 003262 009 Problem Nocturnal leg cramps G47.62 Active confirmed 200582697 Problem Constipation, unspecified constipation type K59.00 Active confirmed 11976577 Problem Chronic diastolic heart failure I50.32 Active confi rmed 163114960 Problem Morbid obesity due to excess calories E66.01 Ac tive confirmed 369194866 Problem MENDEL (obstructive sleep apnea) G47.33 Active confirm ed 46843146 Problem Discitis of lumbar region M46.46 Active confirmed 482298381 Problem Type 2 diabetes mellitus wit h diabetic neuropathy, unspecified whether terminal carman insulin use E11.40 Active confirmed 90300371 7134024 Problem Pruritus L29.9 Active confirmed 918718731 Problem 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, unspecified laterality E11.3399 Active confirmed 235864332 Problem 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 Active confirmed 551310666 Problem Melanocytic nevi of face D22.30 Active confirmed 131545275 Problem Type 2 diabetes mellitus with diabetic nephropathy E11.21 Active confirmed 618064170 Problem Melanocytic nevi of left upper limb, including shoulder D22.62 Active confirmed 727690974 Problem [facility] current use of insulin Z79.4 Active conf irmed 770589811 Problem Stage 3b chronic kidney disease N18.32 Active confi rmed 592374065 Problem Hives L50.9 Active confirmed 005479191 Problem Chronic anticoagulation Z79.01 Active confirmed 543584840 Problem History of pulmonary embolus (PE) Z86.711 Active confirmed 155801366 Problem Allergic rhinitis, unspecified seasonality, unspecifie d trigger J30.9 Active confirmed 36077759 ALLERGIES Allergen (clinical drug ingredient) Drug/Non Drug Allergy do cumented on EMR Reaction Allergy Type Onset Date Status venlafaxine Venlafaxine HCl([facility] Code:[address]-10) Rash Drug A llergy Active spironolactone Spironolactone([facility] Code:[address]-01) G ynecomastia/breast itching Drug Allergy Active ENCOUNTERS from 1950 to 2021-02-28 Encounter Location Date Provider Diagnosis [place] [address] [facility] [phone] [place] [address] 14 Feb, 2021 Rodney Mijares intermediate school teacher current use of ins ulin Z79.4 and [facility] (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 anticoagulants Z79.01 IMMUNIZATIONS Vaccine Route Administration Date Status [...] Education Language: Question Answer Notes Languages spoken: Martiniquais Roman Catholic: Question Answer Notes Roman Catholic 33 None Domestic Violence: Question Answer Notes [...] 25 MG as directed Orally Unk nown Potassium Chloride 15 MEQ as directed Orally 2 tablets dily MWF and 3 tablets BID ROW Unknown HumaLOG 100 UNIT/ML as directed Subcutaneous sliding scale twice tala y Unknown Montelukast Sodium 10 MG 1 tablet Orally QHS Unknown Vitamin D 50 MCG (1999) 1 capsule Orally Once a day for 30 day(s) Unknown Atorvastatin Calcium 80 MG 1 tablet Orally Once a day for 30 day(s) Unknown Jantoven 7.5 MG 1 tablet Orally Rest OF Week for 30 Days 10mg Wed, 7.5 mg rest of week Oct, Active Acetaminophen 500 MG 1 capsule as needed Orally once daily as needed Unknown Calcium Carbonate 600 MG as directed Orally bid Unknown Multivitamin Adult - 1 tablet Orally Once a day for 30 day(s) Unknown Febuxostat 40 MG 1 tablet Orally Once a day for 30 day(s) Unknown Magnesium 500 MG 2 capsules at bedtime as needed Orally twice a day Unknown Omeprazole 40 MG 1 capsule 30 minutes before morning meal Orally bid for 30 Days Unknown metOLazone 2.5 MG 1 tablet Orally MWF Unknown Gabapentin 300 MG 1 capsule Orally Three times a day Unknown Fish Oil 500 MG 1 capsule Orally Twice a day for 30 day(s) Unknown Warfarin Sodium 5 MG 2 tablets Orally Fridays for 30 day(s) Dec, Unknown Benadryl 25 MG 1 capsule at bedtime as needed Orally Once a day for 30 day(s) Unknown Aspirin 81 81 MG 1 tablet Orally Once a day for 30 day(s) Unknown aMILoride HCl 5 MG 2 tablet with food Orally BID Unknown PROCEDURES No Information RESULTS Component Value Reference Range PT-INR Fingerstick Reviewed date:02/27/2021 12:35:57 Interpretation: Performing Lab:[facility], [place] [address] INR 2.0 Verified Patient's Name and CForney Current Dose 1 5mg thur-sun Current Dose 2 7.5mg M-W Tab Strength 5mg tabs Indication for Anticoagulation DVT Recent Bleeding Internal QC Acceptable (Y/N) home test Therapeutic Range 2-3 Education Given (Date / Initials) New Dose 1 New Dose 2 Weekly Total Next PT-INR 4 weeks - - REASON FOR VISIT PT/INR MEDICAL (GENERAL) HISTORY Type Description Date Medical [...] History GERD, sees ENT, Dr. Landa in [place] Medical History Hx DVT Medical History kidney [...] Notes Treatment Notes Treatm ent Clinical Notes Feb, [facility] current use of insulin (ICD-10 - Z79.4 ) Feb, [facility] (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 anticoagulants (ICD-1 0 - Z79.01) Continue with current dosing schedule, he is currently on 7.5 mg M-W, 5 mg Th-Wed. INR currently therapeutic, will recheck in 4 weeks, again emphasized he should not be making changes without speaking to a physician first. He verbalized understanding and agreement, we will recheck in 1 week. 5 minutes was spent on the phone. Feb, Other PT INR should b e under this, not [facility] current use of insulin. Contine with same dosing schedule. PLAN OF TREATMENT Medication Medication Name Sig Start Date Stop Date 7.5 MG 1 tablet Orally Rest OF Week for 30 Days Oct, Treatment Notes Assessment Notes Clinical Notes [facility] (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 anticoagulants Continue with current dosing schedule, he is currently on 7.5 mg M-W, 5 mg Thurs-Sun. INR currently therapeutic, will recheck in 4 weeks, again emphasized he should not be making changes without speaking to a physician first. He verbalized understanding and agreement, we will recheck in 1 week.5 minutes was spent on the phone. Next Appt Details as scheduled Reason: Provider Name:Rodney Mijares, 2021-03-24 11 :00:00 AM, [address] [facility], , [place], [address], Provider Name:Anastasia Reilly, 2021-12-03 03:00:00 PM, [address] [facility], , [place], [address], Insurance Providers Payer Name Payer Address Payer Phone Insured Name Patient Relati onship to Insured Coverage Start Date Coverage End Date MEDICAID [employer] [address] [facility] [id number] NEHA SWENSON MEDICARE Part A and B [address] [facility] [phone] NEHA SWENSON
--- OUTSIDE RECORDS SUMMARY | 2021-04-15 10:57 | CCD ---
Author Author [facility] Organization [facility] Address Unknown Phone Unavailable Care Team Providers Care Manager Of Patient Name Role Phone Rodney Mijares Unavailable PROBLEMS Type Condition ICD9-CM Code YTO02-GH Code Onset Dates Condition S tatus W/U Status Risk SNOMED Code Notes Problem Ataxia R27.0 Active confirmed 61616642 Problem Acute gout of right foot, unspecified cause M10.9 Active confirmed 522430584 Problem Stage 3 chronic kidney disease N18.3 Active confir med 115616472 Problem Hx of deep venous thrombosis Z86.718 Active confirm ed 631528090 Problem Chronic kidney disease, stage IV (severe) N18.4 Active confirmed 593932989 Problem SK (seborrheic keratosis) L82.1 Active confirmed 963205686 Problem Sebaceous hyperplasia L73.8 Active confirmed 383518253 Problem Bilateral carotid artery stenosis I65.23 Active confirmed 169430842 Problem Venous insufficiency of both lower extremities I87 .2 Active confirmed 068747148 Problem Hyperlipidemia, unspecified hyperlipidemia type E7 8.5 Active confirmed 75395287 Problem Stasis dermatitis of both legs I87.2 Active confir med 64494337 Problem Coronary artery disease of n ative heart with stable angina pectoris, unspecified vessel or lesion type I25.118 Active confirmed 097324009 Problem Hypophosphatemia E83.39 Active confirmed 499 6001 Problem Melanocytic nevi of trunk D22.5 Active confirmed 433752664 Problem Melanocytic nevi of right upper limb, including shoulder D22.61 Active confirmed 100387143 Problem Other local lupus erythematosus L93.2 Active confi rmed 80376585 Problem Acne rosacea L71.9 Active confirmed 4981764 04 Problem Adverse effect of unspecifie d drugs, medicaments and biological substances, initial encounter T50.905A Active confirmed 33077722 Problem Type 2 diabetes mellitus with hyperglycemia E11.65 Active confirmed 67422157 Problem Essential hypertension I10 Active confirmed 87622374 Problem Dependence on other enabling machines and devices Z99.89 Active confirmed 077733310 Problem Encounter for therapeutic drug level monitoring Z5 1.81 Active confirmed 486160878 Very slightly above goal. 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.811 Active confirmed 009302 009 Problem Nocturnal leg cramps G47.62 Active confirmed 989699485 Problem Constipation, unspecified constipation type K59.00 Active confirmed 77160453 Problem Chronic diastolic heart failure I50.32 Active confi rmed 558356159 Problem Morbid obesity due to excess calories E66.01 Ac tive confirmed 770117719 Problem MENDEL (obstructive sleep apnea) G47.33 Active confirm ed 86581031 Problem Discitis of lumbar region M46.46 Active confirmed 460284599 Problem Type 2 diabetes mellitus wit h diabetic neuropathy, unspecified whether manager intermediate insulin use E11.40 Active confirmed 77556087 1186979 Problem Pruritus L29.9 Active confirmed 123448663 Problem 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, unspecified laterality E11.3399 Active confirmed 747483302 Problem technician terminal 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 repeater (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 anticoagulants Z79.01 Active confirmed 833185796 Problem Melanocytic nevi of face D22.30 Active confirmed 434222044 Problem Type 2 diabetes mellitus with diabetic nephropathy E11.21 Active confirmed 494348257 Problem Melanocytic nevi of left upper limb, including shoulder D22.62 Active confirmed 779997034 Problem FPC current use of insulin Z79.4 Active conf irmed 501235602 Problem Stage 3b chronic kidney disease N18.32 Active confi rmed 671569393 Problem Hives L50.9 Active confirmed 019759219 Problem Chronic anticoagulation Z79.01 Active confirmed 187202483 Problem History of pulmonary embolus (PE) Z86.711 Active confirmed 955639768 Problem Allergic rhinitis, unspecified seasonality, unspecifie d trigger J30.9 Active confirmed 34500274 ALLERGIES Allergen (clinical drug ingredient) Drug/Non Drug Allergy do cumented on EMR Reaction Allergy Type Onset Date Status venlafaxine Venlafaxine HCl([facility] Code:[address]-93) Rash Drug A llergy Active spironolactone Spironolactone([facility] Code:[address]-80) G ynecomastia/breast itching Drug Allergy Active ENCOUNTERS from 1950 to 2021-03-18 Encounter Location Date Provider Diagnosis [place] [id number] [place] [id number] Mar, Rodney Mijares IMMUNIZATIONS Vaccine Route Administration Date [...] Education Language: Question Answer Notes Languages spoken: Lao Protestant: Question Answer Notes Protestant 33 None Domestic Violence: Question Answer Notes [...] Notes Start Da te End Date Status HumuLIN R U-500 KwikPen 500 UNIT/ML 100 units Subcutaneous bid Unknown aMILoride HCl 5 MG 2 tablet with food Orally BID Unknown OneTouch Delica Lancets 30G - 1 lancet subcutaneously Daily for 90 day(s) Dec, Unknown Januvia 25 MG as directed Orally Unk nown Potassium Chloride 15 MEQ as directed Orally 2 tablets dily MWF and 3 tablets BID ROW Unknown HumaLOG 100 UNIT/ML as directed Subcutaneous sliding scale twice tala y Unknown Jantoven 7.5 MG 1 tablet Orally Rest OF Week for 30 Days 10mg Fri, 7.5 mg rest of week 10 Oct, 2020 Active Vitamin D 50 MCG (1999 [place]) 1 capsule Orally Once a day for 30 day(s) Unknown Acetaminophen 500 MG 1 capsule as needed Orally once daily as needed Unknown Atorvastatin Calcium 80 MG 1 tablet Orally Once a day for 30 day(s) Unknown Isosorbide Mononitrate ER 60 MG 1 tablet in the mornin g Orally Once a day for 30 days Active Calcium Carbonate 600 MG as directed [...] tablet Orally QHS for 30 days Active PROCEDURES No Information RESULTS No Results [...] [place] Medical History GERD, sees ENT, Dr. Grouch in [place] Medical History Hx DVT Medical History kidney disease Medical History History of lupus durg rash Medical History Coronary Artery disease s/p stent placem ent 2019 Surgical History Cardiac cath; [place] 2014 Surgical History Cataract, R eye 2016 [...] Medication Name Sig Start Date Stop Date Jantoven 7.5 MG 1 tablet Orally Rest OF Week for 30 Days Oct, Isosorbide Mononitrate ER 60 MG 1 tablet in the mornin g Orally Once a day for 30 days Montelukast Sodium 10 MG 1 tablet Orally QHS for 30 days Next Appt Details Provider Name:Rodney Mijares, 2021-03-24 11 :00:00 AM, [address] [facility], , [place], [place], [facility], Provider Name:Anastasia Reilly, 2021-12-03 03:00:00 PM, [address] [facility], , [place], [place], [facility], Insurance Providers Payer Name Payer Address Payer Phone Insured Name Patient Relati onship to Insured Coverage Start Date Coverage End Date MEDICARE Part A and B [address] [facility] [phone] NEHA SWENSON MEDICAID [facility] [address] [facility] [id number] [phone] NEHA SWENSON
--- OUTSIDE RECORDS SUMMARY | 2021-04-15 10:57 | CCD | Continuity of Care Document ---
Author Author Myriam ABRAMS M.D. Organization Unknown Address [address] [place] [address] Phone [phone] Care Team Providers Care Flat Sorting Machine Clerk Name Role Phone Rodney Mijares DO AUTM [phone] Problems Active Problems Provider Date Neck pain [...] lb BMI (Body Mass Index) 32.7 kg/m2 [place] Body Weight 154 lb Results Description No Information Available Procedures Date Code Description Status 02/07/2021 96072 Office/Outpatient Established Mo d MDM 30-39 Min Completed Medical Devices Description No Information Available Encounters Type Date Location Provider Dx Diagnosis Office Visit 02/07/2021 10:15a Main office - [place] Alcides Bellamy M48.062 Spinal stenosis, lumbar region [...] limbs Naya Abrams M.D. Plan of Treatment No Information Available Functional Status Description No Information Available Mental Status Description No Information Available Referrals Description No Information Available
--- OUTSIDE RECORDS SUMMARY | 2021-04-15 10:57 | CCD | Continuity of Care Document ---
Author Author Myriam Cobos Organization Unknown Address [address] [place] [address] Phone [phone] Care Team Providers Care Fuse Maker Name Role Phone Foster Bahena MD AUTM [phone] Marc Frey DO AUTM [phone] Sugey Szymanski MD AUTM [phone] Andres Tellez MD AUTM [phone] Problems Active Problems Provider Date Essential hypertension [...] E11.65 Julianne Aparicio MD 01/24/2021 Freestyle Mitzy 2/[place]/Flash Glucose M onitoring System 2Reader Device use [...] Tablets 1 by mouth every day Unknown Bath-3 1000mg Capsules 2 po qd Unknown Vitamin [...] units twice a day 6ml Amy burnette, KNIFE EDGER Bumetanide 1mg Tablets 3 po b id [...] Glucose 98 Procedures Date Code Description Status 02/05/2021 11540 Office/Outpatient Established Mi nimal Problem(S) Completed 02/05/2021 65171 Amb Glucose Monitoring 1St 72 HR S Sensor Placement, Nurseryman Assistant Completed 01/23/2021 45036 Office/Outpatient Established Hi gh MDM 40-54 Min Completed 10/17/2020 09070 Office/Outpatient Established Mo d MDM 30-39 Min Completed 09/04/2020 18851 Office/Outpatient Established Mo d MDM 30-39 Min Completed 09/04/2020 157237317 Diabetic Foot Exam Completed Medical Devices Description No Information Available Encounters Type Date Location Provider Dx Diagnosis Office Visit 02/05/2021 11:00a DR. Julianne Aparicio [facility] E11.22 Type 2 diabetes mellitus w diabetic chronic kidney disease N18.31 Chronic kidney disease, stag e 3a Z79.4 jail (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 i nsulin Office Visit 01/23/2021 11:45a DR. Julianne Aparicio MD E 11.22 Type 2 diabetes mellitus w diabetic chronic kidney disease Z79.4 intermediate frame tender (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 i nsulin N18.31 Chronic kidney disease, stag e 3a Z01.89 Encounter for other specifie d special examinations K85.91 Acute pancreatitis with unin fected necrosis, unspecified Office Visit 10/17/2020 1:45p DR. 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 Julianne Mcclellan, N P E11.22 Type 2 diabetes mellitus w diabetic chronic kidney disease Z79.4 intermediate frame tender (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 i nsulin N18.31 Chronic kidney disease, stag e 3a Z01.89 Encounter for other specifie d special examinations Assessments Date Code Description Provider 02/05/2021 E11.22 Type 2 diabetes mellitus with di abetic chronic kidney disease Julianne Aparicio MD 02/05/2021 E11.22 Type 2 diabetes mellitus with di abetic chronic kidney disease Endo Nurses 02/05/2021 N18.31 Chronic kidney disease, stage 3a Julianne Aparicio MD 02/05/2021 N18.31 Chronic kidney disease, stage 3a [facility]es 02/05/2021 Z79.4 jail (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 insul in Julianne Aparicio MD 02/05/2021 Z79.4 jail (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 insul in [facility] Nurses 01/23/2021 E11.22 Type 2 diabetes mellitus with di abetic chronic kidney disease Julianne Aparicio MD 01/23/2021 Z79.4 jail (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 insul in Julianne Aparicio MD 01/23/2021 N18.31 Chronic kidney disease, stage 3a Julianne Aparicio MD 01/23/2021 Z01.89 Encounter for other specified sp ecial examinations Julianne Aparicio MD 01/23/2021 K85.91 Acute pancreatitis with uninfect ed necrosis, unspecified Julianne Aparicio MD 10/17/2020 E11.22 Type 2 diabetes mellitus with di abetic chronic kidney disease Julianne Aparicio MD 10/17/2020 Z79.4 jail (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 insul in Julianne Aparicio MD 10/17/2020 N18.31 Chronic kidney disease, stage 3a Julianne Aparicio MD 10/17/2020 Z01.89 Encounter for other specified sp ecial examinations Julianne Aparicio MD 09/04/2020 E11.22 Type 2 diabetes mellitus with di abetic chronic kidney disease Amy Mcclellan NP 09/04/2020 Z79.4 jail (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 insul in Amy Mcclellan [...] * Follow up:* 3 months * Z79.4 jail (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 insulin* Comments:* Doses adjusted [...]
--- OUTSIDE RECORDS SUMMARY | 2021-04-15 10:57 | CCD ---
Author Author [facility] Organization [facility] Address Unknown Phone Unavailable Care Team Providers Care Doorshaker Name Role Phone Rodney Mijares Unavailable PROBLEMS Type Condition ICD9-CM Code ZIX80-EE Code Onset Dates Condition S tatus W/U Status Risk SNOMED Code Notes Problem Ataxia R27.0 Active confirmed 61573587 Problem Acute gout of right foot, unspecified cause M10.9 Active confirmed 428243200 Problem Stage 3 chronic kidney disease N18.3 Active confir med 025828377 Problem Hx of deep venous thrombosis Z86.718 Active confirm ed 573300100 Problem Chronic kidney disease, stage IV (severe) N18.4 Active confirmed 546429279 Problem SK (seborrheic keratosis) L82.1 Active confirmed 786828799 Problem Sebaceous hyperplasia L73.8 Active confirmed 455654536 Problem Bilateral carotid artery stenosis I65.23 Active confirmed 373351068 Problem Venous insufficiency of both lower extremities I87 .2 Active confirmed 931770972 Problem Hyperlipidemia, unspecified hyperlipidemia type E7 8.5 Active confirmed 47632436 Problem Stasis dermatitis of both legs I87.2 Active confir med 04916273 Problem Coronary artery disease of n ative heart with stable angina pectoris, unspecified vessel or lesion type I25.118 Active confirmed 950805923 Problem Hypophosphatemia E83.39 Active confirmed 499 6001 Problem Melanocytic nevi of trunk D22.5 Active confirmed 570866313 Problem Melanocytic nevi of right upper limb, including shoulder D22.61 Active confirmed 839967599 Problem Other local lupus erythematosus L93.2 Active confi rmed 74353671 Problem Acne rosacea L71.9 Active confirmed 7464447 04 Problem Adverse effect of unspecifie d drugs, medicaments and biological substances, initial encounter T50.905A Active confirmed 97991432 Problem Type 2 diabetes mellitus with hyperglycemia E11.65 Active confirmed 92150169 Problem Essential hypertension I10 Active confirmed 53031713 Problem Dependence on other enabling machines and devices Z99.89 Active confirmed 345420864 Problem Encounter for therapeutic drug level monitoring Z5 1.81 Active confirmed 539154330 Very slightly above goal. 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 Active confirmed 033504 009 Problem Nocturnal leg cramps G47.62 Active confirmed 377965766 Problem Constipation, unspecified constipation type K59.00 Active confirmed 06249550 Problem Chronic diastolic heart failure I50.32 Active confi rmed 866481409 Problem Morbid obesity due to excess calories E66.01 Ac tive confirmed 227777666 Problem MENDEL (obstructive sleep apnea) G47.33 Active confirm ed 71908399 Problem Discitis of lumbar region M46.46 Active confirmed 660138412 Problem Type 2 diabetes mellitus wit h diabetic neuropathy, unspecified whether director long term care insulin use E11.40 Active confirmed 96653322 3755052 Problem Pruritus L29.9 Active confirmed 634894087 Problem 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, unspecified laterality E11.3399 Active confirmed 359348269 Problem 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 Z79.01 Active confirmed 137247941 Problem Melanocytic nevi of face D22.30 Active confirmed 128252291 Problem Type 2 diabetes mellitus with diabetic nephropathy E11.21 Active confirmed 970900866 Problem Melanocytic nevi of left upper limb, including shoulder D22.62 Active confirmed 949454182 Problem FPC current use of insulin Z79.4 Active conf irmed 675488047 Problem Stage 3b chronic kidney disease N18.32 Active confi rmed 531372064 Problem Hives L50.9 Active confirmed 387702149 Problem Chronic anticoagulation Z79.01 Active confirmed 469441439 Problem History of pulmonary embolus (PE) Z86.711 Active confirmed 793762026 Problem Allergic rhinitis, unspecified seasonality, unspecifie d trigger J30.9 Active confirmed 57079357 ALLERGIES Allergen (clinical drug ingredient) Drug/Non Drug Allergy do cumented on EMR Reaction Allergy Type Onset Date Status venlafaxine Venlafaxine HCl([facility] Code:[address]-89) Rash Drug A llergy Active spironolactone Spironolactone([facility] Code:[address]-22) G ynecomastia/breast itching Drug Allergy Active ENCOUNTERS from 1950 to 2021-04-07 Encounter Location Date Provider Diagnosis [facility] Resident [address] [phone] [place] [address] Feb, Rodney Mijares Chronic diastolic he art failure I50.32 IMMUNIZATIONS Vaccine Route Administration Date Status Moderna [...] Education Language: Question Answer Notes Languages spoken: Portuguese Sikh: Question Answer Notes Sikh 33 None Domestic Violence: Question Answer Notes [...] smoked? > 10 years REASON FOR REFERRAL from 1950 to 2021-04-07 Reason chronic care management for multiple medical conditions Diagnosis 1 Chronic diastolic heart fail ure (I50.32) Referral Organization [facility] GME Resident Referring Provider First Name Rodney Referring Provider Last Name Maryana Referring Provider Specialty Family Medicine Referred Provider Specialty Supervisor Firearms Referral Priority Routine VITAL SIGNS No information MEDICATIONS Medication SIG [...] 1 tablet Orally Rest OF Week 10mg Wed, 7.[address] of week 10 Oct, 2020 Active metOLazone 2.5 MG 1 tablet Orally MWF Active HumaLOG 100 UNIT/ML as directed Subcutaneous sliding scale twice tala y Active Febuxostat 40 MG 1 tablet Orally Once a day Active PROCEDURES No Information RESULTS No Results REASON FOR VISIT CCM Referral Request Needed MEDICAL (GENERAL) HISTORY Type Description Date Medical [...] History GERD, sees ENT, Dr. Landa in [place] Medical History Hx DVT Medical History kidney disease Medical History History of lupus durg rash Medical History Coronary Artery disease s/p stent placem ent 2019 Surgical History Cardiac cath; [place] 2014 Surgical History Cataract, R eye 2015 [...] Treatment Notes Treatm ent Clinical Notes Feb, Chronic diastolic heart failure (ICD-10 - I50.32 ) PLAN OF TREATMENT Medication Medication Name Sig Start Date Stop Date HumaLOG 100 UNIT/ML as directed Subcutaneous Febuxostat 40 MG 1 tablet Orally Once a day metOLazone 2.5 MG 1 tablet Orally MWF Jantoven 7.5 MG 1 tablet Orally Rest OF Week 10 Oct, 2020 aMILoride HCl 5 MG 2 tablet with [...] MG 1 tablet Orally Once a day Referrals Referral Date Details chronic care management for multiple medical conditions Next Appt Details Provider Name:Anastasia Reilly, 2021-12-03 03:00:00 PM, [address], , [place], [address], Insurance Providers Payer Name Payer Address Payer Phone Insured Name Patient Relati onship to Insured Coverage Start Date Coverage End Date MEDICAID [employer] [address] [facility] [id number] NEHA SWENSON self MEDICARE Part A and B [address] [facility] [id number] NEHA SWENSON self
--- OUTSIDE RECORDS SUMMARY | 2021-04-15 10:58 | CCD | Continuity of Care Document ---
Author Author Myriam ARCE MD Organization Unknown Address [address] [facility] [place] [address] Phone [phone] Care Team Providers Care Airline Pilot Flight Instructor Name Role Phone Foster Bahena MD AUTM [phone] Marc Frey DO AUTM [phone] Sugey Szymanski MD AUTM [phone] Andres Tellez MD AUTM [phone] Problems Active Problems Provider Date Essential hypertension [...] Ut) Capsule s 1 po qd Unknown [place]-3 1000mg Capsules 2 po qd Unknown Multivitamin [...] twice a day 6ml Amy Donohue nce, IRON BENDER Bumetanide 1mg Tablets 3 po b id [...] 98 Procedures Date Code Description Status 10/17/2020 14782 Office/Outpatient Established Mo d MDM 30-39 Min Completed 09/04/2020 21821 Office/Outpatient Established Mo d MDM 30-39 Min Completed 09/04/2020 699479266 Diabetic Foot Exam Completed Medical Devices Description No Information Available Encounters Type Date Location Provider Dx Diagnosis Office Visit 10/17/2020 1:45p DR. Julianne Arce MD E 11.22 Type 2 diabetes mellitus w diabetic chronic kidney disease Z79.4 intermodal customer service (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 i nsulin N18.31 Chronic kidney disease, stag e 3a Z01.89 Encounter for other specifie d special examinations Office Visit 09/04/2020 10:45a DR. Julianne Mcclellan, N P E11.22 Type 2 diabetes mellitus w diabetic chronic kidney disease Z79.4 intermodal customer service (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 i nsulin N18.31 Chronic kidney disease, stag e 3a Z01.89 Encounter for other specifie d special examinations Assessments Date Code Description Provider 10/17/2020 E11.22 Type 2 diabetes mellitus with di abetic chronic kidney disease Julianne Arce MD 10/17/2020 Z79.4 intermodal customer service (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 insul in Julianne Arce MD 10/17/2020 N18.31 Chronic kidney disease, stage 3a Julianne Arce MD 10/17/2020 Z01.89 Encounter for other specified sp ecial examinations Julianne Arce MD 09/04/2020 E11.22 Type 2 diabetes mellitus with di abetic chronic kidney disease Amy Mcclellan NP 09/04/2020 Z79.4 intermodal customer service (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 insul in Amy Mcclellan NP 09/04/2020 N18.31 Chronic kidney disease, stage 3a Amy Mcclellan NP 09/04/2020 Z01.89 Encounter for other specified sp ecial examinations Amy Mcclellan NP Plan of Treatment 10/17/2020 - Julianne Arce MD* E11.22 Type 2 diabetes mellitus with diabetic chronic kidney disease* New Labs:* Hemoglobin A1c, Ordered: 10/17/20 * Glucose, Ordered: 10/17/20 * Comments:* in office A1c= 6% down a lot from 9.3 %, [...] reported history of GFR = 30. Recommendations:#1: Lower U5 100 down to 80 units twice a day to avoid senior trial attorney hypoglycemia.#2: Advised that the patient should be taking Humalog with breakfast and dinner. Take 8-10 units with each meal.Follow-up in 6 months. * Follow up:* 3 months * Z79.4 skilled nursing (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 insulin* Comments:* Doses adjusted [...] monofilament testing and vibration. * All * Follow up:* 3 month Functional Status Description No Information Available Mental Status Description No Information Available Referrals Description No Information Available
--- OUTSIDE RECORDS SUMMARY | 2021-04-15 10:59 | CCD ---
Author Author [facility] Organization [facility] Address Unknown Phone Unavailable Support Name Relationship Address Phone JOSETTE SYKES Next Of Kin [address] [place] [address] RE Next Of Kin Unknown Unavailable DAVID SYKES Next Of Kin [address] [place] [phone] UE Next Of Kin Unknown Unavailable MESSI RENNER Next Of Kin [address] [place] [id number] RET Next Of Kin RETIRED Unknown Unavailable JOSETTE SWENSON Next Of Kin [address] [place] [id number] DAVID SWAIN Next Of Kin Unknown CÉSAR SWENSON Next Of Kin [address] [place] [address] KAYLEY Next Of Kin [address] [place] [address] GEOFFREY TRUJILLO Next Of Kin [address] [place] [id number] UN Next Of Kin Unknown Unavailable [place] [address] J[place] [address] LOY TRUJILLO Next Of Kin [address] [place] [address] STP Next Of Kin [address] [place] [address] JONI TRUJILLO Next Of Kin [address] [place] [phone] David Sykes ECON [address] [place] [address] Unavailable DAVID SYKES ECON [address] [address] Unavailable Messi, César ECON Unknown Unavailable Care Team Providers Care Dog Walker Name Role Phone Naya Abrams MD Unavailable Unavailable Naya Abrams MD Unavailable Unavailable Naya Abrams MD Unavailable Unavailable Naya Abrams MD Unavailable Unavailable AliNaya MD Unavailable Unavailable AliNaya MD Unavailable Unavailable AliNaya MD Unavailable Unavailable Ali, Naya PATEL Unavailable Unavailable AliNaya MD Unavailable Unavailable Naya Abrams MD Unavailable Unavailable AliNaya MD Unavailable Unavailable AliNaya MD Unavailable Unavailable Ali, Naya PATEL Unavailable Unavailable Ali, Naya PATEL Unavailable Unavailable Ali, Naya PATEL Unavailable Unavailable Ali, Naya PATEL Unavailable Unavailable Ali, Naya PATEL Unavailable Unavailable Ali, Naya PATEL Unavailable Unavailable AliNaya MD Unavailable Unavailable Ali, Naya PATEL Unavailable Unavailable AliNaya MD Unavailable Unavailable Ali, Naya PATEL Unavailable Unavailable Ali, Naya PATEL Unavailable Unavailable Ali, Naya PATEL Unavailable Unavailable Ali, Naya PATEL Unavailable Unavailable Ali, Naya PATEL Unavailable Unavailable AliNaya MD Unavailable Unavailable Ali, Naya PATEL Unavailable Unavailable AliNaya MD Unavailable Unavailable AliNaya MD Unavailable Unavailable Ali, Naya PATEL Unavailable Unavailable Ali, Naya PATEL Unavailable Unavailable Ali, Naya PATEL Unavailable Unavailable Ali, Naya PATEL Unavailable Unavailable Ali, Naya PATEL Unavailable Unavailable AliNaya MD Unavailable Unavailable AliNaya MD Unavailable Unavailable AliNaya MD Unavailable Unavailable AliNaya MD Unavailable Unavailable AliNaya MD Unavailable Unavailable AliNaya MD Unavailable Unavailable AliNaya MD Unavailable Unavailable AliNaya MD Unavailable Unavailable AliNaya MD Unavailable Unavailable AliNaya MD Unavailable Unavailable AliNaya MD Unavailable Unavailable Naya Abrams MD Unavailable Unavailable Naya Abrams MD Unavailable Unavailable Naya Abrams MD Unavailable Unavailable AliNaya MD Unavailable Unavailable AliNaya MD Unavailable Unavailable AliNaya MD Unavailable Unavailable DIMAS, B JULIO EDUCATION PARAPROFESSIONAL Unavailable Unavailable DIMAS, B JULIO EDUCATION PARAPROFESSIONAL Unavailable Unavailable DIMAS, B UJLIO EDUCATION PARAPROFESSIONAL Unavailable Unavailable DIMAS, B JULIO EDUCATION PARAPROFESSIONAL Unavailable Unavailable DIMAS, B JULIO EDUCATION PARAPROFESSIONAL Unavailable Unavailable DIMAS, B JULIO EDUCATION PARAPROFESSIONAL Unavailable Unavailable DIMAS, B JULIO EDUCATION PARAPROFESSIONAL Unavailable Unavailable DIMAS, B JULIO EDUCATION PARAPROFESSIONAL Unavailable Unavailable DIMAS, B JULIO EDUCATION PARAPROFESSIONAL Unavailable Unavailable DIMAS, B JULIO EDUCATION PARAPROFESSIONAL Unavailable Unavailable DIMAS, B JULIO EDUCATION PARAPROFESSIONAL Unavailable Unavailable DIMAS, B JULIO EDUCATION PARAPROFESSIONAL Unavailable Unavailable DIMAS, B JULIO EDUCATION PARAPROFESSIONAL Unavailable Unavailable DIMAS, B JULIO EDUCATION PARAPROFESSIONAL Unavailable Unavailable DIMAS, B JULIO EDUCATION PARAPROFESSIONAL Unavailable Unavailable DIMAS, B JULIO EDUCATION PARAPROFESSIONAL Unavailable Unavailable DIMAS, B JULIO EDUCATION PARAPROFESSIONAL Unavailable Unavailable DIMAS, B JULIO EDUCATION PARAPROFESSIONAL Unavailable Unavailable DIMAS, B JULIO EDUCATION PARAPROFESSIONAL Unavailable Unavailable DIMAS, B JULIO EDUCATION PARAPROFESSIONAL Unavailable Unavailable DIMAS, B JULIO EDUCATION PARAPROFESSIONAL Unavailable Unavailable DIMAS, B JULIO EDUCATION PARAPROFESSIONAL Unavailable Unavailable DIMAS, B JULIO EDUCATION PARAPROFESSIONAL Unavailable Unavailable DIMAS, B JULIO EDUCATION PARAPROFESSIONAL Unavailable Unavailable DIMAS, B JULIO EDUCATION PARAPROFESSIONAL Unavailable Unavailable DIMAS, B JULIO EDUCATION PARAPROFESSIONAL Unavailable Unavailable DIMAS, B JULIO EDUCATION PARAPROFESSIONAL Unavailable Unavailable DIMAS, B JULIO EDUCATION PARAPROFESSIONAL Unavailable Unavailable DIMAS, B JULIO EDUCATION PARAPROFESSIONAL Unavailable Unavailable DIMAS, B JULIO EDUCATION PARAPROFESSIONAL Unavailable Unavailable DIMAS, B JULIO EDUCATION PARAPROFESSIONAL Unavailable Unavailable DIMAS, B JULIO EDUCATION PARAPROFESSIONAL Unavailable Unavailable DIMAS, B JULIO EDUCATION PARAPROFESSIONAL Unavailable Unavailable DIMAS, B JULIO EDUCATION PARAPROFESSIONAL Unavailable Unavailable DIMAS, B JULIO EDUCATION PARAPROFESSIONAL Unavailable Unavailable DIAMS, B JULIO EDUCATION PARAPROFESSIONAL Unavailable Unavailable DIMAS, B JULIO EDUCATION PARAPROFESSIONAL Unavailable Unavailable DIMAS, B JULIO EDUCATION PARAPROFESSIONAL Unavailable Unavailable DIMAS, B JULIO EDUCATION PARAPROFESSIONAL Unavailable Unavailable DIMAS, B JULIO EDUCATION PARAPROFESSIONAL Unavailable Unavailable DIMAS, B JULIO EDUCATION PARAPROFESSIONAL Unavailable Unavailable DIMAS, B JULIO EDUCATION PARAPROFESSIONAL Unavailable Unavailable DIMAS, B JULIO EDUCATION PARAPROFESSIONAL Unavailable Unavailable DIMAS, B JULIO EDUCATION PARAPROFESSIONAL Unavailable Unavailable DIMAS, B JULIO EDUCATION PARAPROFESSIONAL Unavailable Unavailable DIMAS, B JULIO EDUCATION PARAPROFESSIONAL Unavailable Unavailable DIMAS, B JULIO EDUCATION PARAPROFESSIONAL Unavailable Unavailable DIMAS, B JULIO EDUCATION PARAPROFESSIONAL Unavailable Unavailable DIMAS, B JULIO EDUCATION PARAPROFESSIONAL Unavailable Unavailable DIMAS, B JULIO EDUCATION PARAPROFESSIONAL Unavailable Unavailable DIMAS, B JULIO EDUCATION PARAPROFESSIONAL Unavailable Unavailable DIMAS, B JULIO EDUCATION PARAPROFESSIONAL Unavailable Unavailable DIMAS, B JULIO EDUCATION PARAPROFESSIONAL Unavailable Unavailable DIMAS, B JULIO EDUCATION PARAPROFESSIONAL Unavailable Unavailable DIMAS, B JULIO EDUCATION PARAPROFESSIONAL Unavailable Unavailable DIMAS, B JULIO EDUCATION PARAPROFESSIONAL Unavailable Unavailable DIMAS, B JULIO EDUCATION PARAPROFESSIONAL Unavailable Unavailable DIMAS, B JULIO EDUCATION PARAPROFESSIONAL Unavailable Unavailable DIMAS, B JULIO EDUCATION PARAPROFESSIONAL Unavailable Unavailable DIMAS, B JULIO EDUCATION PARAPROFESSIONAL Unavailable Unavailable DIMAS, B JULIO EDUCATION PARAPROFESSIONAL Unavailable Unavailable DIMAS, B JULIO EDUCATION PARAPROFESSIONAL Unavailable Unavailable Fons, M Sydney GAMING CAGE WORKER Unavailable Unavailable Fons, M Sydney GAMING CAGE WORKER Unavailable Unavailable Fons, M Sydney GAMING CAGE WORKER Unavailable Unavailable Fons, M Sydney GAMING CAGE WORKER Unavailable Unavailable Fons, M Sydney GAMING CAGE WORKER Unavailable Unavailable Fons, M Sydney GAMING CAGE WORKER Unavailable Unavailable Fons, M Sydney GAMING CAGE WORKER Unavailable Unavailable Fons, M Sydney GAMING CAGE WORKER Unavailable Unavailable Fons, M Sydney GAMING CAGE WORKER Unavailable Unavailable Fons, M Sydney GAMING CAGE WORKER Unavailable Unavailable Fons, M Sydney GAMING CAGE WORKER Unavailable Unavailable Fons, M Sydney GAMING CAGE WORKER Unavailable Unavailable Fons, M Sydney GAMING CAGE WORKER Unavailable Unavailable Fons, M Sydney GAMING CAGE WORKER Unavailable Unavailable Fons, M Sydney GAMING CAGE WORKER Unavailable Unavailable Fons, M Sydney GAMING CAGE WORKER Unavailable Unavailable Fons, M Sydney GAMING CAGE WORKER Unavailable Unavailable Fons, M Sydney GAMING CAGE WORKER Unavailable Unavailable Fons, M Sydney GAMING CAGE WORKER Unavailable Unavailable Fons, M Sydney GAMING CAGE WORKER Unavailable Unavailable Fons, M Sydney GAMING CAGE WORKER Unavailable Unavailable Fons, M Sydney GAMING CAGE WORKER Unavailable Unavailable Fons, M Sydney GAMING CAGE WORKER Unavailable Unavailable Fons, M Sydney GAMING CAGE WORKER Unavailable Unavailable Fons, M Sydney GAMING CAGE WORKER Unavailable Unavailable Fons, M Sydney GAMING CAGE WORKER Unavailable Unavailable Fons, M Sydney GAMING CAGE WORKER Unavailable Unavailable Fons, M Sydney GAMING CAGE WORKER Unavailable Unavailable Fons, M Sydney GAMING CAGE WORKER Unavailable Unavailable Fons, M Sydney GAMING CAGE WORKER Unavailable Unavailable Fons, M Sydney GAMING CAGE WORKER Unavailable Unavailable Fons, M Sydney GAMING CAGE WORKER Unavailable Unavailable Fons, M Sydney GAMING CAGE WORKER Unavailable Unavailable Fons, M Sydney GAMING CAGE WORKER Unavailable Unavailable Fons, M Sydney GAMING CAGE WORKER Unavailable Unavailable Fons, M Sydney GAMING CAGE WORKER Unavailable Unavailable Fons, M Sydney GAMING CAGE WORKER Unavailable Unavailable Fons, M Sydney GAMING CAGE WORKER Unavailable Unavailable Fons, M Sydney GAMING CAGE WORKER Unavailable Unavailable Fons, M Sydney GAMING CAGE WORKER Unavailable Unavailable Fons, M Sydney GAMING CAGE WORKER Unavailable Unavailable Fons, M Sydney GAMING CAGE WORKER Unavailable Unavailable Fons, M Sydney GAMING CAGE WORKER Unavailable Unavailable Fons, M Sydney GAMING CAGE WORKER Unavailable Unavailable Fons, M Sydney GAMING CAGE WORKER Unavailable Unavailable Fons, M Sydney GAMING CAGE WORKER Unavailable Unavailable Fons, M Sydney GAMING CAGE WORKER Unavailable Unavailable Fons, M Sydney GAMING CAGE WORKER Unavailable Unavailable Fons, M Sydney GAMING CAGE WORKER Unavailable Unavailable Fons, M Sydney GAMING CAGE WORKER Unavailable Unavailable Fons, M Sydney GAMING CAGE WORKER Unavailable Unavailable Fons, M Sydney GAMING CAGE WORKER Unavailable Unavailable Fons, M Sydney GAMING CAGE WORKER Unavailable Unavailable StTristin MD Unavailable Unavailable StTristin MD Unavailable Unavailable Tristin St MD Unavailable Unavailable St, L Jase PATEL Unavailable Unavailable St, L Jase PATEL Unavailable Unavailable St, L Jase PATEL Unavailable Unavailable St, L Jase PATEL Unavailable Unavailable St, L Jase PATEL Unavailable Unavailable St, L Jase PATEL Unavailable Unavailable St, L Jase PATEL Unavailable Unavailable St, L Jase PATEL Unavailable Unavailable St, L Jase PATEL Unavailable Unavailable St, L Jase PATEL Unavailable Unavailable St, L Jase PATEL Unavailable Unavailable St, L Jase PATEL Unavailable Unavailable St, L Jase PATEL Unavailable Unavailable St, L Jase PATEL Unavailable Unavailable St, L Jase PATEL Unavailable Unavailable St, L Jase PATEL Unavailable Unavailable St, L Jase PATEL Unavailable Unavailable St, L Jase PATEL Unavailable Unavailable St, L Jase PATEL Unavailable Unavailable St, L Jase PATEL Unavailable Unavailable St, L Jase PATEL Unavailable Unavailable St, L Jase PATEL Unavailable Unavailable St, L Jase PATEL Unavailable Unavailable St, L Jase PATEL Unavailable Unavailable St, L Jase PATEL Unavailable Unavailable St, L Jase PATEL Unavailable Unavailable St, L Jase PATEL Unavailable Unavailable St, L Jase PATEL Unavailable Unavailable St, L Jase PATEL Unavailable Unavailable St, L Jase PATEL Unavailable Unavailable St, L Jase PATEL Unavailable Unavailable St, L Jase PATEL Unavailable Unavailable St, L Jase PATEL Unavailable Unavailable St, L Jase PATEL Unavailable Unavailable St, L Jase PATEL Unavailable Unavailable St, L Jase PATEL Unavailable Unavailable St, L Jase PATEL Unavailable Unavailable St, L Jase PATEL Unavailable Unavailable St, L Jase PATEL Unavailable Unavailable St, L Jase PATEL Unavailable Unavailable St, L Jase PATEL Unavailable Unavailable St, L Jase PATEL Unavailable Unavailable St, L Jase PATEL Unavailable Unavailable St, Tristin Laguna MD Unavailable Unavailable St, L Jase PATEL Unavailable Unavailable St, L Jase PATEL Unavailable Unavailable St, Tristin Laguna MD Unavailable Unavailable Clarissa Aparicio MD Unavailable Unavailable Clarissa Aparicio MD Unavailable Unavailable Clarissa Aparicio MD Unavailable Unavailable Clarissa Aparicio MD Unavailable Unavailable Clarissa Aparicio MD Unavailable Unavailable Clarissa Aparicio MD Unavailable Unavailable Calrissa Aparicio MD Unavailable Unavailable Clarissa Aparicio MD Unavailable Unavailable Clarissa Aparicio MD Unavailable Unavailable Clarissa Aparicio MD Unavailable Unavailable Clarissa Aparicio MD Unavailable Unavailable Clarissa Aparicio MD Unavailable Unavailable Clarissa Aparicio MD Unavailable Unavailable Clarissa Aparicio MD Unavailable Unavailable Clarissa Aparicio MD Unavailable Unavailable Clarissa Aparicio MD Unavailable Unavailable Fish, B Julianne PATEL Unavailable Unavailable Fish, B Julianne PATEL Unavailable Unavailable Fish, B Julianne PATEL Unavailable Unavailable Fish, B Julianne PATEL Unavailable Unavailable Fish, B Julianne PATEL Unavailable Unavailable Fish, B Julianne PATEL Unavailable Unavailable Fish, B Julianne PATEL Unavailable Unavailable Fish, B Julianne PATEL Unavailable Unavailable Fish, B Julianne PATEL Unavailable Unavailable Fish, B Julianne PATEL Unavailable Unavailable Fish, B Julianne PATEL Unavailable Unavailable Fish, B Julianne PATEL Unavailable Unavailable Fish, B Julianne PATEL Unavailable Unavailable Fish, B Julianne PATEL Unavailable Unavailable Fish, B Julianne PATEL Unavailable Unavailable Fish, B Julianne PATEL Unavailable Unavailable Fish, B Julianne PATEL Unavailable Unavailable Fish, B Julianne PATEL Unavailable Unavailable Fish, B Julianne PATEL Unavailable Unavailable Fish, B Julianne PATEL Unavailable Unavailable Fish, B Julianne PATEL Unavailable Unavailable Fish, B Julianne PATEL Unavailable Unavailable Fish, B Julianne PATEL Unavailable Unavailable Fish, B Julianne PATEL Unavailable Unavailable Fish, B Julianne PATEL Unavailable Unavailable Fish, B Julianne PAETL Unavailable Unavailable Fish, B Julianne PATEL Unavailable Unavailable Fish, B Julianne PATEL Unavailable Unavailable Fish, B Julianne PATEL Unavailable Unavailable Fish, B Julianne PATEL Unavailable Unavailable Fish, B Julianne PATEL Unavailable Unavailable Fish, B Julianne PATEL Unavailable Unavailable Fish, B Julianne PATEL Unavailable Unavailable Fish, B Julianne PATEL Unavailable Unavailable Fish, B Julianne PATEL Unavailable Unavailable Fish, B Julianne PATEL Unavailable Unavailable Fish, B Julianne PATEL Unavailable Unavailable Fish, B Julianne PATEL Unavailable Unavailable Fish, B Julianne PATEL Unavailable Unavailable Fish, B Julianne PATEL Unavailable Unavailable Fish, B Julianne PATEL Unavailable Unavailable Fish, B Julianne PATEL Unavailable Unavailable Fish, B Julianne PATEL Unavailable Unavailable Fish, B Julianne PATEL Unavailable Unavailable Fish, B Julianne PATEL Unavailable Unavailable Fish, B Julianne PATEL Unavailable Unavailable Fish, B Julianne PATEL Unavailable Unavailable Fish, B Julianne PATEL Unavailable Unavailable Fish, B Julianne PATEL Unavailable Unavailable MEDENT_[id number], NA Unavailable [phone] RING, K LOY PA Unavailable Unavailable RING, K LOY PA Unavailable Unavailable RING, K LOY PA Unavailable Unavailable RING, K LOY PA Unavailable Unavailable RING, K LOY PA Unavailable Unavailable RING, K LOY PA Unavailable Unavailable RING, K LOY PA Unavailable Unavailable RING, K LOY PA Unavailable Unavailable RING, K LOY PA Unavailable Unavailable RING, K LOY PA Unavailable Unavailable RING, K LOY PA Unavailable Unavailable RING, K LOY PA Unavailable Unavailable RING, K LOY PA Unavailable Unavailable RING, K LOY PA Unavailable Unavailable RING, K LOY PA Unavailable Unavailable RING, K LOY PA Unavailable Unavailable RING, K LOY PA Unavailable Unavailable RING, K LOY PA Unavailable Unavailable RING, K LOY PA Unavailable Unavailable RING, K LOY PA Unavailable Unavailable RING, K LOY PA Unavailable Unavailable RING, K LOY PA Unavailable Unavailable Re-disclosure Warning The records that you are about to access may contain information from federally-assisted alcohol or drug abuse programs. If such information is present, then the following federally mandated warning applies: This information has been disclosed to you from records protected by federal confidentiality rules (42 CFR part 2). The federal rules prohibit you from making any further disclosure of this information unless further disclosure is expressly permitted by the written consent of the person to whom it pertains or as otherwise permitted by 42 CFR part 2. A general authorization for the release of medical or other information is NOT sufficient for this purpose. The Federal rules restrict any use of the information to criminally investigate or prosecute any alcohol or drug abuse patient.The records that you are about to access may contain highly sensitive health information, the redisclosure of which is protected by Article 27-F of the [facility] Public Health law. If you continue you may have access to information: Regarding HIV / AIDS; Provided by facilities licensed or operated by the [facility] Office of Mental Health; or Provided by the [facility] Office for People With Developmental Disabilities. If such information is present, then the following [facility] mandated warning applies: This information has been disclosed to you from confidential records which are protected by state law. State law prohibits you from making any further disclosure of this information without the specific written consent of the person to whom it pertains, or as otherwise permitted by law. Any unauthorized further disclosure in violation of state law may result in a fine or care home sentence or both. A general authorization for the release of medical or other information is NOT sufficient authorization for further disc losure. Allergies and Adverse Reactions Type Description Substance Reaction Status Data Source(s ) Propensity to adverse reactions SPIRONOLACTONE Spironolactone Shortness Of Breath High Active [facility] High Family History Family Member Name Family Member Gender Family Member Status Date o f Status Description Data Source(s) Unknown Unknown Problem [facility] Brother Dx at age 71 Encounters Encounter Providers Location Date Indications Data Source(s ) Unknown [address] [facility] [id number] 04/09/2021 12:00:00 AM EST eCW1 ([facility]) Outpatient [address] [place] [address] 03/24/2021 12:00:00 AM EST eCW1 ([facility]) Unknown [address] [facility] [place] [address] 03/18/2021 12:00:00 AM EDT eCW1 ([facility]) Unknown [address] [facility] [id number] 03/13/2021 12:00:00 AM EDT eCW1 ([facility]) Unknown [address] [facility] [address] 03/10/2021 12:00:00 AM EDT eCW1 ([facility]) TeleMedicine Phone E/M by Phys 5-10 Min [address] [place] [address] 02/27/2021 12:00:00 AM EDT eCW1 ([facility]) Unknown [address] [facility] [id number] 02/10/2021 12:00:00 AM EDT eCW1 ([facility]) Outpatient Attender: Naya Abrams MD Main office - [place] 02/07/2021 10:15:00 AM EDT MEDENT ([facility]) TeleMedicine Phone E/M by Phys 5-[address] [place] [phone] 02/07/2021 12:00:00 AM EDT eCW1 ([facility]) Outpatient Attender: SOLO [id number] Physical Therapy 02/05/2021 11 :00:00 AM EDT MEDENT ([facility]) Outpatient Attender: Julianne Aparicio MD Physical Therapy 01/23 11:45:00 AM EDT MEDENT ([facility] ) (PT/INR TV) Telephone Encounter Visit [address] [place] [address] 01/22/2021 12:00:00 AM EDT eCW1 ([facility]) Outpatient [address] [facility] [id number] 01/08/2021 12:00:00 AM EDT eCW1 ([facility]) (PT/INR TV) Telephone Encounter Visit [address] [place] [address] 01/01/2021 12:00:00 AM EDT eCW1 ([facility]) Unknown [address] [facility] [id number] 12/30/2020 12:00:00 AM EDT eCW1 ([facility]) Outpatient [address] [facility] [address] 12/27/2020 12:00:00 AM EDT eCW1 ([facility]) Unknown [address] [facility] [place] [address] 12/23/2020 12:00:00 AM EDT eCW1 ([facility]) Unknown [address] [facility] [place] [address] 12/23/2020 12:00:00 AM EDT eCW1 ([facility]) Outpatient Attender: Sydney HARDING [email or web address] 12:00:00 AM EDT - 12/20/2020 02:05:40 PM EDT [facility] Outpatient Attender: LOY Clark 12/16/2020 09:35:00 AM EDT MEDENT ([facility]) Unknown [address] [facility] [place] [address] 12/06/2020 12:00:00 AM EDT eCW1 ([facility]) Unknown [address] [facility] [place] [address] 11/28/2020 12:00:00 AM EDT eCW1 ([facility]) Outpatient [address] [facility] [address] 11/25/2020 12:00:00 AM EDT eCW1 ([facility] Unknown [address] [facility] [place] [address] 11/21/2020 12:00:00 AM EDT eCW1 ([facility]) Unknown [address] [facility] [place] [address] 11/15/2020 12:00:00 AM EDT eCW1 ([facility]) Unknown [address] [facility] [place] [address] 11/12/2020 12:00:00 AM EDT eCW1 ([facility]) Unknown [address] [facility] [place] [address] 11/04/2020 12:00:00 AM EDT eCW1 ([facility]) Unknown [address] [facility] [place] [address] 10/24/2020 12:00:00 AM EDT eCW1 ([facility]) Unknown [address] [facility] [place] [address] 10/24/2020 12:00:00 AM EDT eCW1 ([facility]) Outpatient Attender: Julianne Aparicio MD Physical Therapy 10/17 01:45:00 PM EDT MEDENT ([facility]) Unknown [address] [facility] [place] [address] 10/15/2020 12:00:00 AM EDT eCW1 ([facility]) Unknown [address] [facility] [place] [address] 10/03/2020 12:00:00 AM EDT eCW1 ([facility]) (PT/INR TV) Telephone Encounter Visit [address] [place] [address] 09/27/2020 12:00:00 AM EDT eCW1 ([facility]) Unknown [address] [facility] [place] [address] 09/20/2020 12:00:00 AM EDT eCW1 ([facility]) Outpatient Attender: Sydney HARDING [email or web address] 01:57:10 PM EDT - 09/19/2020 02:57:35 PM EDT [facility] Unknown [address] [facility] [place] [address] 09/19/2020 12:00:00 AM EDT eCW1 ([facility]) Unknown [address] [facility] [place] [address] 09/12/2020 12:00:00 AM EDT eCW1 ([facility]) Unknown [address] [facility] [place] [address] 09/06/2020 12:00:00 AM EDT eCW1 ([facility]) Outpatient Attender: JULIO COCHRAN NP Physical Therapy 10:45:00 AM EDT MEDENT ([facility]) Outpatient [address] [facility] [place] [address] 09/03/2020 12:00:00 AM EDT eCW1 ([facility]) Unknown [address] [facility] [place] [address] 08/28/2020 12:00:00 AM EDT eCW1 ([facility]) Unknown [address] [facility] [place] [address] 08/26/2020 12:00:00 AM EDT eCW1 ([facility]) Outpatient [address] [facility] [place] [address] 08/09/2020 12:00:00 AM EDT eCW1 ([facility]) Unknown [address] [facility] [place] [address] 08/09/2020 12:00:00 AM EDT eCW1 ([facility]) Unknown [address] [facility] [address] 08/01/2020 12:00:00 AM EDT eCW1 ([facility]) Outpatient Attender: Sydney HARDING SJP.[email or web address].CAMILO 12:00:00 AM EST - 07/24/2020 03:23:58 PM [facility] [address] [facility] [address] 07/18/2020 12:00:00 AM EST eCW1 ([facility]) Outpatient Attender: Julianne Aparicio MD Physical Therapy 07/09 01:15:00 PM EST MEDENT ([facility]) Outpatient [address] [facility] [address] 07/09/2020 12:00:00 AM EST eCW1 [facility] Unknown [address] [facility] [address] 07/04/2020 12:00:00 AM EST eCW1 ([facility]) Outpatient [address] [facility] [address] 07/02/2020 12:00:00 AM EST eCW1 ([facility] Unknown [address] [facility] [address] 06/20/2020 12:00:00 AM EST eCW1 ([facility] Unknown [address] [facility] [address] 06/14/2020 12:00:00 AM EST eCW1 [facility] Unknown [address] [facility] [address] 06/13/2020 12:00:00 AM EST eCW1 [facility] Unknown [address] [facility] [address] 06/13/2020 12:00:00 AM EST eCW1 [facility] Outpatient [address] [facility] [address] 06/10/2020 12:00:00 AM EST eCW1 ([facility]) Outpatient [address] [facility] [address] 06/10/2020 12:00:00 AM EST eCW1 ([facility]) Unknown [address] [facility] [address] 06/04/2020 12:00:00 AM EST eCW1 ([facility]) Outpatient [address] [facility] [address] 05/28/2020 12:00:00 AM EST eCW1 ([facility]) Outpatient [address] [facility] [address] 05/27/2020 12:00:00 AM EST eCW1 ([facility]) Unknown [address] [facility] [address] 05/23/2020 12:00:00 AM EST eCW1 ([facility]) Outpatient Attender: Julianne Aparicio MD Physical Therapy 05/21 02:00:00 PM EST MED[facility] ([facility]) Unknown [address] [facility], [place] [address] 05/20/2020 12:00:00 AM EST eCW1 ([facility]) Unknown [address] [facility] [address] 05/08/2020 12:00:00 AM EST eCW1 ([facility]) Outpatient Attender: Jase St MD Physical Therapy 05/04/2020 0 2:47:00 PM EST [facility] ([facility]) Outpatient [address] [facility] [address] 04/29/2020 12:00:00 AM EST eCW1 ([facility]) Outpatient Attender: Sydney HARDING SJP.[email or web address].CAMILO 0 12:00:00 AM EST - 04/25/2020 02:48:19 PM EST [facility] Unknown [address] [facility] [address] 04/23/2020 12:00:00 AM EST eCW1 ([facility]) Unknown [address] [facility] [address] 04/22/2020 12:00:00 AM EST eCW1 ([facility]) Unknown [address] [facility] [address] 03/20/2020 12:00:00 AM EST eCW1 ([facility]) Outpatient [address] [facility] [address] 03/18/2020 12:00:00 AM EST eCW1 ([facility]) Outpatient Attender: Sydney HARDING SJP.CAMILO-SJGinaCAMILO 0 12:00:00 AM EDT - 03/08/2020 03:01:50 PM EDT [facility] Outpatient Attender: Julianne Apraicio MD Physical Therapy 03/05 11:45:00 AM EDT MED[facility] ([facility]) Unknown [address] [facility] [address] 03/05/2020 12:00:00 AM EDT eCW1 ([facility]) Outpatient [address] [facility] [address] 03/04/2020 12:00:00 AM EDT eCW1 ([facility]) Unknown [address] [facility] [address] 03/01/2020 12:00:00 AM EDT eCW1 ([facility]) Immunizations Vaccine Date Status Description Data Source(s) COVID-19 VACCINE Moderna 04/08/2021 12:00:00 AM EST completed [employer] Vaccine Series Complete: YESThis Data wa s Submitted to [facility] Via [employer]. influenza, recombinant, quadrIvalent,injectable, prese rvative free 01/25/2021 11:50:00 AM EDT completed eCW1 ([facility]) influenza, recombinant, quadrIvalent,injectable, prese rvative free 01/25/2021 11:50:00 AM EDT completed eCW1 ([facility]) influenza, recombinant, quadrIvalent,injectable, prese rvative free 01/25/2021 11:50:00 AM EDT completed eCW1 ([facility]) Moderna #2 dose COVID-19 (given elsewhere) SARSCOV2 VA C 100MCG/0.5ML IM 08/05/2020 11:50:00 AM EDT completed eCW1 ([facility]) Moderna #2 dose COVID-19 (given elsewhere) SARSCOV2 VA C 100MCG/0.5ML IM 08/05/2020 11:50:00 AM EDT completed eCW1 ([facility]) Moderna #2 dose COVID-19 (given elsewhere) SARSCOV2 VA C 100MCG/0.5ML IM 08/05/2020 11:50:00 AM EDT completed eCW1 ([facility]) COVID-19 VACCINE Moderna 08/05/2020 12:00:00 AM EDT completed [employer] Vaccine Series Complete: YESThis Data wa s Submitted to [facility] Via [employer]. Moderna #1 dose COVID-19 (given elsewhere) SARSCOV2 VA C 100MCG/0.5ML IM 07/11/2020 11:49:00 AM EST completed eCW1 ([facility]) Moderna #1 dose COVID-19 (given elsewhere) SARSCOV2 VA C 100MCG/0.5ML IM 07/11/2020 11:49:00 AM EST completed eCW1 ([facility]) Moderna #1 dose COVID-19 (given elsewhere) SARSCOV2 VA C 100MCG/0.5ML IM 07/11/2020 11:49:00 AM EST completed eCW1 ([facility]) Medications Medication Brand Name Start Date Product Form Dose Route Admi nistrative Instructions Pharmacy Instructions Status Indications Reaction Description Data Source(s) gabapentin 300 MG Oral Capsule Gabapentin 02/07/2021 12:00:00 AM EDT ORAL active [facility] ([facility] ) Freestyle Mitzy 2/[place]/Flash Glucose Monitoring System 01/24/2021 12:00:00 AM EDT active [facility] ([facility]) Freestyle Mitzy 2/Sensor/Flash Glucose Monitoring System 01/24/2021 12:00:00 AM EDT active [facility] ([facility]) Acetaminophen 500 MG Oral Tablet [Tylenol] Tylenol Extra Str ength 01/23/2021 12:00:00 AM EDT ORAL active M EDENT ([facility]) Diphenhydramine Hydrochloride 25 MG Oral Tablet Benadryl All ergy Ultratabs 01/23/2021 12:00:00 AM EDT ORAL active MED[facility] ([facility]) OneTouch Delica Lancets 30G - OneTouch Delica Lancets 30G - 01/08/2021 12:00:00 AM EDT active OneTouch Delica L ancets 30G - eCW1 ([facility]) OneTouch Delica Lancets 30G - OneTouch Delica Lancets 30G - 01/08/2021 12:00:00 AM EDT active OneTouch Delica L ancets 30G - eCW1 ([facility]) Warfarin Sodium 5 MG Oral Tablet Warfarin Sodium 5 MG 2020 12:00:00 AM EDT 2.0 {tablets} active Warfarin S odium 5 MG eCW1 ([facility]) OneTouch Delica Lancets 30G - OneTouch Delica Lancets 30G - 01/08/2021 12:00:00 AM EDT active OneTouch Delica L ancets 30G - eCW1 ([facility]) OneTouch Delica Lancets 30G - OneTouch Delica Lancets 30G - 01/08/2021 12:00:00 AM EDT active OneTouch Delica L ancets 30G - eCW1 ([facility]) Warfarin Sodium 5 MG Oral Tablet Warfarin Sodium 5 MG 2020 12:00:00 AM EDT 2.0 {tablets} active Warfarin S odium 5 MG eCW1 ([facility]) OneTouch Delica Lancets 30G - OneTouch Delica Lancets 30G - 01/08/2021 12:00:00 AM EDT active OneTouch Delica L ancets 30G - eCW1 ([facility]) Warfarin Sodium 5 MG Oral Tablet Warfarin Sodium 5 MG 2020 12:00:00 AM EDT 2.0 {tablets} suspended Warfari n Sodium 5 MG eCW1 ([facility]) Warfarin Sodium 5 MG Oral Tablet Warfarin Sodium 5 MG 2020 12:00:00 AM EDT 2.0 {tablets} active Warfarin S odium 5 MG eCW1 ([facility]) Warfarin Sodium 5 MG Oral Tablet Warfarin Sodium 5 MG 2020 12:00:00 AM EDT 2.0 {tablets} active Warfarin S odium 5 MG eCW1 ([facility]) Warfarin Sodium 5 MG Oral Tablet Warfarin Sodium 5 MG 2020 12:00:00 AM EDT 2.0 {tablets} active Warfarin S odium 5 MG eCW1 ([facility]) OneTouch Delica Lancets 30G - OneTouch Delica Lancets 30G - 01/08/2021 12:00:00 AM EDT active OneTouch Delica L ancets 30G - eCW1 ([facility]) OneTouch Delica Lancets 30G - OneTouch Delica Lancets 30G - 01/08/2021 12:00:00 AM EDT active OneTouch Delica L ancets 30G - eCW1 ([facility]) Warfarin Sodium 5 MG Oral Tablet Warfarin Sodium 5 MG 2020 12:00:00 AM EDT 2.0 {tablets} active Warfarin S odium 5 MG eCW1 ([facility]) Warfarin Sodium 5 MG Oral Tablet Warfarin Sodium 5 MG 2020 12:00:00 AM EDT 2.0 {tablets} active Warfarin S odium 5 MG eCW1 ([facility]) Warfarin Sodium 5 MG Oral Tablet Warfarin Sodium 5 MG 2020 12:00:00 AM EDT 2.0 {tablets} active Warfarin S odium 5 MG eCW1 ([facility]) OneTouch Delica Lancets 30G - OneTouch Delica Lancets 30G - 01/08/2021 12:00:00 AM EDT active OneTouch Delica L ancets 30G - eCW1 ([facility]) OneTouch Delica Lancets 30G - OneTouch Delica Lancets 30G - 01/08/2021 12:00:00 AM EDT active OneTouch Delica L ancets 30G - eCW1 ([facility]) Warfarin Sodium 5 MG Oral Tablet Warfarin Sodium 5 MG 2020 12:00:00 AM EDT 2.0 {tablets} active Warfarin S odium 5 MG eCW1 ([facility]) OneTouch Delica Lancets 30G - OneTouch Delica Lancets 30G - 01/08/2021 12:00:00 AM EDT active OneTouch Delica L ancets 30G - eCW1 ([facility]) Insulin Lispro 100 UNT/ML Injectable Solution [Humalog ] HumaLOG 100 UNIT/ML HumaLOG 100 UNIT/ML 12/19/2020 12:00:00 AM EDT active HumaLOG 100 UNIT/ML eCW1 ([facility]) Insulin Lispro 100 UNT/ML Injectable Solution [Humalog ] HumaLOG 100 UNIT/ML HumaLOG 100 UNIT/ML 12/19/2020 12:00:00 AM EDT active HumaLOG 100 UNIT/ML eCW1 ([facility]) Insulin Lispro 100 UNT/ML Injectable Solution [Humalog ] HumaLOG 100 UNIT/ML HumaLOG 100 UNIT/ML 12/19/2020 12:00:00 AM EDT active HumaLOG 100 UNIT/ML eCW1 ([facility]) Insulin Lispro 100 UNT/ML Injectable Solution [Humalog ] HumaLOG 100 UNIT/ML HumaLOG 100 UNIT/ML 12/19/2020 12:00:00 AM EDT active HumaLOG 100 UNIT/ML eCW1 ([facility]) Insulin Lispro 100 UNT/ML Injectable Solution [Humalog ] HumaLOG 100 UNIT/ML HumaLOG 100 UNIT/ML 12/19/2020 12:00:00 AM EDT active HumaLOG 100 UNIT/ML eCW1 ([facility]) Warfarin Sodium 7.5 MG Oral Tablet [Jantoven] Jantoven 7.5 MG tablet Jantoven 7.5 MG tablet 12/12/2020 12:00:00 AM EDT active [facility] atorvastatin 80 MG Oral Tablet atorvastatin (LIPITOR) 80 MG tablet atorvastatin (LIPITOR) 80 MG tablet 11/14/2020 12:00:00 AM EDT active TAKE ONE TABLET BY MOUTH EVERY DAY [facility] Warfarin Sodium 7.5 MG Oral Tablet [Jantoven] Jantoven 7.5 M G Jantoven 7.5 MG 10/24/2020 12:00:00 AM EDT 1.0 {tablet} active Jantoven 7.5 MG eCW1 ([facility]) Warfarin Sodium 7.5 MG Oral Tablet [Jantoven] Jantoven 7.5 M G Jantoven 7.5 MG 10/24/2020 12:00:00 AM EDT 1.0 {tablet} active Jantoven 7.5 MG eCW1 ([facility]) Warfarin Sodium 7.5 MG Oral Tablet [Jantoven] Jantoven 7.5 M G Jantoven 7.5 MG 10/24/2020 12:00:00 AM EDT 1.0 {tablet} active Jantoven 7.5 MG eCW1 ([facility]) Warfarin Sodium 7.5 MG Oral Tablet [Jantoven] Jantoven 7.5 M G Jantoven 7.5 MG 10/24/2020 12:00:00 AM EDT 1.0 {tablet} active Jantoven 7.5 MG eCW1 ([facility]) Warfarin Sodium 7.5 MG Oral Tablet [Jantoven] Jantoven 7.5 M G Jantoven 7.5 MG 10/24/2020 12:00:00 AM EDT 1.0 {tablet} active Jantoven 7.5 MG eCW1 ([facility]) Warfarin Sodium 7.5 MG Oral Tablet [Jantoven] Jantoven 7.5 M G Jantoven 7.5 MG 10/24/2020 12:00:00 AM EDT 1.0 {tablet} active Jantoven 7.5 MG eCW1 ([facility]) Warfarin Sodium 7.5 MG Oral Tablet [Jantoven] Jantoven 7.5 M G Jantoven 7.5 MG 10/24/2020 12:00:00 AM EDT 1.0 {tablet} active Jantoven 7.5 MG eCW1 ([facility]) Warfarin Sodium 7.5 MG Oral Tablet [Jantoven] Jantoven 7.5 M G Jantoven 7.5 MG 10/24/2020 12:00:00 AM EDT 1.0 {tablet} active Jantoven 7.5 MG eCW1 ([facility]) Warfarin Sodium 7.5 MG Oral Tablet [Jantoven] Jantoven 7.5 M G Jantoven 7.5 MG 10/24/2020 12:00:00 AM EDT 1.0 {tablet} active Jantoven 7.5 MG eCW1 ([facility]) Warfarin Sodium 7.5 MG Oral Tablet [Jantoven] Jantoven 7.5 M G Jantoven 7.5 MG 10/24/2020 12:00:00 AM EDT 1.0 {tablet} active Jantoven 7.5 MG eCW1 ([facility]) Warfarin Sodium 7.5 MG Oral Tablet [Jantoven] Jantoven 7.5 M G Jantoven 7.5 MG 10/24/2020 12:00:00 AM EDT 1.0 {tablet} active Jantoven 7.5 MG eCW1 ([facility]) Warfarin Sodium 7.5 MG Oral Tablet [Jantoven] Jantoven 7.5 M G Jantoven 7.5 MG 10/24/2020 12:00:00 AM EDT 1.0 {tablet} active Jantoven 7.5 MG eCW1 ([facility]) Warfarin Sodium 7.5 MG Oral Tablet [Jantoven] Jantoven 7.5 M G Jantoven 7.5 MG 10/24/2020 12:00:00 AM EDT 1.0 {tablet} active Jantoven 7.5 MG eCW1 ([facility]) Warfarin Sodium 7.5 MG Oral Tablet [Jantoven] Jantoven 7.5 M G Jantoven 7.5 MG 10/24/2020 12:00:00 AM EDT 1.0 {tablet} active Jantoven 7.5 MG eCW1 ([facility]) Warfarin Sodium 7.5 MG Oral Tablet [Jantoven] Jantoven 7.5 M G Jantoven 7.5 MG 10/24/2020 12:00:00 AM EDT 1.0 {tablet} active Jantoven 7.5 MG eCW1 ([facility]) Warfarin Sodium 7.5 MG Oral Tablet [Jantoven] Jantoven 7.5 M G Jantoven 7.5 MG 10/24/2020 12:00:00 AM EDT 1.0 {tablet} active Jantoven 7.5 MG eCW1 ([facility]) Warfarin Sodium 7.5 MG Oral Tablet [Jantoven] Jantoven 7.5 M G Jantoven 7.5 MG 10/24/2020 12:00:00 AM EDT 1.0 {tablet} active Jantoven 7.5 MG eCW1 ([facility]) Warfarin Sodium 7.5 MG Oral Tablet [Jantoven] Jantoven 7.5 M G Jantoven 7.5 MG 10/24/2020 12:00:00 AM EDT 1.0 {tablet} active Jantoven 7.5 MG eCW1 ([facility]) Warfarin Sodium 7.5 MG Oral Tablet [Jantoven] Jantoven 7.5 M G Jantoven 7.5 MG 10/24/2020 12:00:00 AM EDT 1.0 {tablet} active Jantoven 7.5 MG eCW1 ([facility]) Warfarin Sodium 7.5 MG Oral Tablet [Jantoven] Jantoven 7.5 M G Jantoven 7.5 MG 10/24/2020 12:00:00 AM EDT 1.0 {tablet} active Jantoven 7.5 MG eCW1 ([facility]) Warfarin Sodium 7.5 MG Oral Tablet [Jantoven] Jantoven 7.5 M G Jantoven 7.5 MG 10/24/2020 12:00:00 AM EDT 1.0 {tablet} active Jantoven 7.5 MG eCW1 ([facility]) Warfarin Sodium 7.5 MG Oral Tablet [Jantoven] Jantoven 7.5 M G Jantoven 7.5 MG 10/24/2020 12:00:00 AM EDT 1.0 {tablet} active Jantoven 7.5 MG eCW1 ([facility]) Warfarin Sodium 7.5 MG Oral Tablet [Jantoven] Jantoven 7.5 M G Jantoven 7.5 MG 10/24/2020 12:00:00 AM EDT 1.0 {tablet} active Jantoven 7.5 MG eCW1 ([facility]) Warfarin Sodium 7.5 MG Oral Tablet [Jantoven] Jantoven 7.5 M G Jantoven 7.5 MG 10/24/2020 12:00:00 AM EDT 1.0 {tablet} active Jantoven 7.5 MG eCW1 ([facility]) Warfarin Sodium 7.5 MG Oral Tablet [Jantoven] Jantoven 7.5 M G Jantoven 7.5 MG 10/24/2020 12:00:00 AM EDT 1.0 {tablet} active Jantoven 7.5 MG eCW1 ([facility]) 24 HR metoprolol succinate 100 MG Extend ed Release Oral Tablet metoprolol succinate (TOPROL-XL) 100 MG 24 hr tablet metoprolol succinate (TOPROL-XL) 100 MG 24 hr tablet 10/22/2020 12:00:00 AM EDT 100 mg Oral ac tive Take 1 tablet (100 mg total) by mouth daily 1 tablet daily [facility] Fluticasone Propionate 50 MCG/ACT Fluticasone Propionate 50 MCG/ACT 09/03/2020 12:00:00 AM EDT 1.0 {spray_in_each_nostril} acti ve Fluticasone Propionate 50 MCG/ACT eCW1 ([facility]) Fluticasone Propionate 50 MCG/ACT Fluticasone Propionate 50 MCG/ACT 09/03/2020 12:00:00 AM EDT 1.0 {spray_in_each_nostril} acti ve Fluticasone Propionate 50 MCG/ACT eCW1 ([facility]) Fluticasone Propionate 50 MCG/ACT Fluticasone Propionate 50 MCG/ACT 09/03/2020 12:00:00 AM EDT 1.0 {spray_in_each_nostril} acti ve Fluticasone Propionate 50 MCG/ACT eCW1 ([facility]) Fluticasone Propionate 50 MCG/ACT Fluticasone Propionate 50 MCG/ACT 09/03/2020 12:00:00 AM EDT 1.0 {spray_in_each_nostril} acti ve Fluticasone Propionate 50 MCG/ACT eCW1 ([facility]) Fluticasone Propionate 50 MCG/ACT Fluticasone Propionate 50 MCG/ACT 09/03/2020 12:00:00 AM EDT 1.0 {spray_in_each_nostril} acti ve Fluticasone Propionate 50 MCG/ACT eCW1 ([facility]) Fluticasone Propionate 50 MCG/ACT Fluticasone Propionate 50 MCG/ACT 09/03/2020 12:00:00 AM EDT 1.0 {spray_in_each_nostril} acti ve Fluticasone Propionate 50 MCG/ACT eCW1 ([facility]) Fluticasone Propionate 50 MCG/ACT Fluticasone Propionate 50 MCG/ACT 09/03/2020 12:00:00 AM EDT 1.0 {spray_in_each_nostril} susp ended Fluticasone Propionate 50 MCG/ACT eCW1 ([facility]) Fluticasone Propionate 50 MCG/ACT Fluticasone Propionate 50 MCG/ACT 09/03/2020 12:00:00 AM EDT 1.0 {spray_in_each_nostril} acti ve Fluticasone Propionate 50 MCG/ACT eCW1 ([facility]) Fluticasone Propionate 50 MCG/ACT Fluticasone Propionate 50 MCG/ACT 09/03/2020 12:00:00 AM EDT 1.0 {spray_in_each_nostril} acti ve Fluticasone Propionate 50 MCG/ACT eCW1 ([facility]) Fluticasone Propionate 50 MCG/ACT Fluticasone Propionate 50 MCG/ACT 09/03/2020 12:00:00 AM EDT 1.0 {spray_in_each_nostril} acti ve Fluticasone Propionate 50 MCG/ACT eCW1 ([facility]) Fluticasone Propionate 50 MCG/ACT Fluticasone Propionate 50 MCG/ACT 09/03/2020 12:00:00 AM EDT 1.0 {spray_in_each_nostril} acti ve Fluticasone Propionate 50 MCG/ACT eCW1 ([facility]) Fluticasone Propionate 50 MCG/ACT Fluticasone Propionate 50 MCG/ACT 09/03/2020 12:00:00 AM EDT 1.0 {spray_in_each_nostril} acti ve Fluticasone Propionate 50 MCG/ACT eCW1 ([facility]) Fluticasone Propionate 50 MCG/ACT Fluticasone Propionate 50 MCG/ACT 09/03/2020 12:00:00 AM EDT 1.0 {spray_in_each_nostril} acti ve Fluticasone Propionate 50 MCG/ACT eCW1 ([facility]) Fluticasone Propionate 50 MCG/ACT Fluticasone Propionate 50 MCG/ACT 09/03/2020 12:00:00 AM EDT 1.0 {spray_in_each_nostril} susp ended Fluticasone Propionate 50 MCG/ACT eCW1 ([facility]) Fluticasone Propionate 50 MCG/ACT Fluticasone Propionate 50 MCG/ACT 09/03/2020 12:00:00 AM EDT 1.0 {spray_in_each_nostril} susp ended Fluticasone Propionate 50 MCG/ACT eCW1 ([facility]) Fluticasone Propionate 50 MCG/ACT Fluticasone Propionate 50 MCG/ACT 09/03/2020 12:00:00 AM EDT 1.0 {spray_in_each_nostril} acti ve Fluticasone Propionate 50 MCG/ACT eCW1 ([facility]) Fluticasone Propionate 50 MCG/ACT Fluticasone Propionate 50 MCG/ACT 09/03/2020 12:00:00 AM EDT 1.0 {spray_in_each_nostril} acti ve Fluticasone Propionate 50 MCG/ACT eCW1 ([facility]) 24 HR metoprolol succinate 100 MG Extend ed Release Oral Tablet metoprolol succinate (TOPROL-XL) 100 MG 24 hr tablet metoprolol succinate (TOPROL-XL) 100 MG 24 hr tablet 07/24/2020 12:00:00 AM EST 100 mg Oral ab orted Take 1 tablet (100 mg total) by mouth daily [facility] 3 ML Insulin Lispro 100 UNT/ML Pen Injec tor [Humalog] HUMALOG KWIKPEN 100 UNIT/ML SOPN HUMALOG KWIKPEN 100 UNIT/ML SOPN 07/17/2020 12:00:00 AM EST aborted daily [facility] febuxostat 40 MG Oral Tablet febuxostat (ULORIC) 40 MG tablet febuxostat (ULORIC) 40 MG tablet 07/12/2020 12:00:00 AM EST 1 {tbl} active 1 tablet daily [facility] Digoxin 0.125 MG Oral Tablet digoxin (LANOXIN) 125 MCG tablet digoxin (LANOXIN) 125 MCG tablet 06/17/2020 12:00:00 AM EST 1 {tbl} ab orted 1 tablet daily [facility] sitagliptin 25 MG Oral Tablet [Januvia] JANUVIA 25 MG tablet JANUVIA 25 MG tablet 06/17/2020 12:00:00 AM EST 1 {tbl} aborted 1 tablet daily [facility] Prednisone 20 MG Oral Tablet PredniSONE 20 MG PredniSONE 20 MG 05/27/2020 12:00:00 AM EST 1.0 {tablet} suspended PredniSONE 20 MG eCW1 ([facility]) Prednisone 20 MG Oral Tablet PredniSONE 20 MG PredniSONE 20 MG 05/27/2020 12:00:00 AM EST 1.0 {tablet} active Pr edniSONE 20 MG eCW1 ([facility]) Prednisone 20 MG Oral Tablet PredniSONE 20 MG PredniSONE 20 MG 05/27/2020 12:00:00 AM EST 1.0 {tablet} suspended PredniSONE 20 MG eCW1 ([facility]) Prednisone 20 MG Oral Tablet predniSONE 20 MG predniSONE 20 MG 05/27/2020 12:00:00 AM EST 1.0 {tablet} suspended predniSONE 20 MG eCW1 ([facility]) Prednisone 20 MG Oral Tablet PredniSONE 20 MG PredniSONE 20 MG 05/27/2020 12:00:00 AM EST 1.0 {tablet} active Pr edniSONE 20 MG eCW1 ([facility]) Prednisone 20 MG Oral Tablet PredniSONE 20 MG PredniSONE 20 MG 05/27/2020 12:00:00 AM EST 1.0 {tablet} suspended PredniSONE 20 MG eCW1 ([facility]) Prednisone 20 MG Oral Tablet predniSONE 20 MG predniSONE 20 MG 05/27/2020 12:00:00 AM EST 1.0 {tablet} suspended predniSONE 20 MG eCW1 ([facility]) Prednisone 20 MG Oral Tablet PredniSONE 20 MG PredniSONE 20 MG 05/27/2020 12:00:00 AM EST 1.0 {tablet} suspended PredniSONE 20 MG eCW1 ([facility]) Prednisone 20 MG Oral Tablet PredniSONE 20 MG PredniSONE 20 MG 05/27/2020 12:00:00 AM EST 1.0 {tablet} active Pr edniSONE 20 MG eCW1 ([facility]) Prednisone 20 MG Oral Tablet PredniSONE 20 MG PredniSONE 20 MG 05/27/2020 12:00:00 AM EST 1.0 {tablet} active Pr edniSONE 20 MG eCW1 ([facility]) Prednisone 20 MG Oral Tablet predniSONE 20 MG predniSONE 20 MG 05/27/2020 12:00:00 AM EST 1.0 {tablet} suspended predniSONE 20 MG eCW1 ([facility]) Prednisone 20 MG Oral Tablet PredniSONE 20 MG PredniSONE 20 MG 05/27/2020 12:00:00 AM EST 1.0 {tablet} suspended PredniSONE 20 MG eCW1 ([facility]) Prednisone 20 MG Oral Tablet predniSONE 20 MG predniSONE 20 MG 05/27/2020 12:00:00 AM EST 1.0 {tablet} suspended predniSONE 20 MG eCW1 ([facility]) Prednisone 20 MG Oral Tablet PredniSONE 20 MG PredniSONE 20 MG 05/27/2020 12:00:00 AM EST 1.0 {tablet} suspended PredniSONE 20 MG eCW1 ([facility]) Prednisone 20 MG Oral Tablet PredniSONE 20 MG PredniSONE 20 MG 05/27/2020 12:00:00 AM EST 1.0 {tablet} suspended PredniSONE 20 MG eCW1 ([facility]) Prednisone 20 MG Oral Tablet PredniSONE 20 MG PredniSONE 20 MG 05/27/2020 12:00:00 AM EST 1.0 {tablet} active Pr edniSONE 20 MG eCW1 ([facility]) Prednisone 20 MG Oral Tablet PredniSONE 20 MG PredniSONE 20 MG 05/27/2020 12:00:00 AM EST 1.0 {tablet} active Pr edniSONE 20 MG eCW1 ([facility]) Prednisone 20 MG Oral Tablet PredniSONE 20 MG PredniSONE 20 MG 05/27/2020 12:00:00 AM EST 1.0 {tablet} active Pr edniSONE 20 MG eCW1 ([facility]) Prednisone 20 MG Oral Tablet PredniSONE 20 MG PredniSONE 20 MG 05/27/2020 12:00:00 AM EST 1.0 {tablet} suspended PredniSONE 20 MG eCW1 ([facility]) Prednisone 20 MG Oral Tablet PredniSONE 20 MG PredniSONE 20 MG 05/27/2020 12:00:00 AM EST 1.0 {tablet} suspended PredniSONE 20 MG eCW1 ([facility]) Prednisone 20 MG Oral Tablet PredniSONE 20 MG PredniSONE 20 MG 05/27/2020 12:00:00 AM EST 1.0 {tablet} suspended PredniSONE 20 MG eCW1 ([facility]) Prednisone 20 MG Oral Tablet PredniSONE 20 MG PredniSONE 20 MG 05/27/2020 12:00:00 AM EST 1.0 {tablet} suspended PredniSONE 20 MG eCW1 ([facility]) Prednisone 20 MG Oral Tablet PredniSONE 20 MG PredniSONE 20 MG 05/27/2020 12:00:00 AM EST 1.0 {tablet} suspended PredniSONE 20 MG eCW1 ([facility]) Prednisone 20 MG Oral Tablet predniSONE 20 MG predniSONE 20 MG 05/27/2020 12:00:00 AM EST 1.0 {tablet} suspended predniSONE 20 MG eCW1 ([facility]) Prednisone 20 MG Oral Tablet PredniSONE 20 MG PredniSONE 20 MG 05/27/2020 12:00:00 AM EST 1.0 {tablet} active Pr edniSONE 20 MG eCW1 ([facility]) Prednisone 20 MG Oral Tablet PredniSONE 20 MG PredniSONE 20 MG 05/27/2020 12:00:00 AM EST 1.0 {tablet} active Pr edniSONE 20 MG eCW1 ([facility]) Prednisone 20 MG Oral Tablet PredniSONE 20 MG PredniSONE 20 MG 05/27/2020 12:00:00 AM EST 1.0 {tablet} suspended PredniSONE 20 MG eCW1 ([facility]) Prednisone 20 MG Oral Tablet predniSONE 20 MG predniSONE 20 MG 05/27/2020 12:00:00 AM EST 1.0 {tablet} suspended predniSONE 20 MG eCW1 ([facility]) Prednisone 20 MG Oral Tablet PredniSONE 20 MG PredniSONE 20 MG 05/27/2020 12:00:00 AM EST 1.0 {tablet} suspended PredniSONE 20 MG eCW1 ([facility]) Prednisone 20 MG Oral Tablet predniSONE 20 MG predniSONE 20 MG 05/27/2020 12:00:00 AM EST 1.0 {tablet} suspended predniSONE 20 MG eCW1 ([facility]) Prednisone 20 MG Oral Tablet PredniSONE 20 MG PredniSONE 20 MG 05/27/2020 12:00:00 AM EST 1.0 {tablet} active Pr edniSONE 20 MG eCW1 ([facility]) Prednisone 20 MG Oral Tablet predniSONE 20 MG predniSONE 20 MG 05/27/2020 12:00:00 AM EST 1.0 {tablet} suspended predniSONE 20 MG eCW1 ([facility]) Prednisone 20 MG Oral Tablet PredniSONE 20 MG PredniSONE 20 MG 05/27/2020 12:00:00 AM EST 1.0 {tablet} suspended PredniSONE 20 MG eCW1 ([facility]) Prednisone 20 MG Oral Tablet predniSONE 20 MG predniSONE 20 MG 05/27/2020 12:00:00 AM EST 1.0 {tablet} suspended predniSONE 20 MG eCW1 ([facility]) Prednisone 20 MG Oral Tablet PredniSONE 20 MG PredniSONE 20 MG 05/27/2020 12:00:00 AM EST 1.0 {tablet} suspended PredniSONE 20 MG eCW1 ([facility]) Prednisone 20 MG Oral Tablet PredniSONE 20 MG PredniSONE 20 MG 05/27/2020 12:00:00 AM EST 1.0 {tablet} active Pr edniSONE 20 MG eCW1 ([facility]) Prednisone 20 MG Oral Tablet predniSONE 20 MG predniSONE 20 MG 05/27/2020 12:00:00 AM EST 1.0 {tablet} suspended predniSONE 20 MG eCW1 ([facility]) Prednisone 20 MG Oral Tablet PredniSONE 20 MG PredniSONE 20 MG 05/27/2020 12:00:00 AM EST 1.0 {tablet} suspended PredniSONE 20 MG eCW1 ([facility]) 24 HR Nitroglycerin 0.4 MG/HR Transdermal Patch Nitroglyceri n 05/21/2020 12:00:00 AM EST active M EDENT ([facility]) sitagliptin 25 MG Oral Tablet [Januvia] Januvia 05/21/2020 12:00:0 0 AM EST ORAL active MEDENT ([facility]) Digoxin 0.125 MG Oral Tablet Digoxin 05/21/2020 12:00:00 AM EST active MEDENT ([facility]) febuxostat 40 MG Oral Tablet Febuxostat 05/21/2020 12:00:00 AM EST active MEDENT ([facility]) montelukast 10 MG Oral Tablet montelukast (SINGULAIR) 10 MG tablet montelukast (SINGULAIR) 10 MG tablet 04/25/2020 12:00:00 AM EST 10 mg Oral active Take 1 tablet (10 mg total) by mouth daily [facility] diflorasone diacetate 0.0005 MG/MG Topic al Ointment Diflorasone Diacetate 0.05 % Diflorasone Diacetate 0.05 % 04/22/2020 12:00:00 AM EST 1. 0 {application} active Diflorasone Diacetate 0.0 5 % eCW1 ([facility]) diflorasone diacetate 0.0005 MG/MG Topic al Ointment Diflorasone Diacetate 0.05 % Diflorasone Diacetate 0.05 % 04/22/2020 12:00:00 AM EST 1. 0 {application} suspended Diflorasone Diacetate 0.0 5 % eCW1 ([facility]) diflorasone diacetate 0.0005 MG/MG Topic al Ointment Diflorasone Diacetate 0.05 % Diflorasone Diacetate 0.05 % 04/22/2020 12:00:00 AM EST 1. 0 {application} suspended Diflorasone Diacetate 0.0 5 % eCW1 ([facility]) diflorasone diacetate 0.0005 MG/MG Topic al Ointment Diflorasone Diacetate 0.05 % Diflorasone Diacetate 0.05 % 04/22/2020 12:00:00 AM EST 1. 0 {application} active Diflorasone Diacetate 0.0 5 % eCW1 ([facility]) diflorasone diacetate 0.0005 MG/MG Topic al Ointment Diflorasone Diacetate 0.05 % Diflorasone Diacetate 0.05 % 04/22/2020 12:00:00 AM EST 1. 0 {application} active Diflorasone Diacetate 0.0 5 % eCW1 ([facility]) diflorasone diacetate 0.0005 MG/MG Topic al Ointment Diflorasone Diacetate 0.05 % Diflorasone Diacetate 0.05 % 04/22/2020 12:00:00 AM EST 1. 0 {application} suspended Diflorasone Diacetate 0.0 5 % eCW1 ([facility]) diflorasone diacetate 0.0005 MG/MG Topic al Ointment Diflorasone Diacetate 0.05 % Diflorasone Diacetate 0.05 % 04/22/2020 12:00:00 AM EST 1. 0 {application} active Diflorasone Diacetate 0.0 5 % eCW1 ([facility]) diflorasone diacetate 0.0005 MG/MG Topic al Ointment Diflorasone Diacetate 0.05 % Diflorasone Diacetate 0.05 % 04/22/2020 12:00:00 AM EST 1. 0 {application} suspended Diflorasone Diacetate 0.0 5 % eCW1 ([facility]) diflorasone diacetate 0.0005 MG/MG Topic al Ointment Diflorasone Diacetate 0.05 % Diflorasone Diacetate 0.05 % 04/22/2020 12:00:00 AM EST 1. 0 {application} suspended Diflorasone Diacetate 0.0 5 % eCW1 ([facility]) diflorasone diacetate 0.0005 MG/MG Topic al Ointment Diflorasone Diacetate 0.05 % Diflorasone Diacetate 0.05 % 04/22/2020 12:00:00 AM EST 1. 0 {application} suspended Diflorasone Diacetate 0.0 5 % eCW1 ([facility]) diflorasone diacetate 0.0005 MG/MG Topic al Ointment Diflorasone Diacetate 0.05 % Diflorasone Diacetate 0.05 % 04/22/2020 12:00:00 AM EST 1. 0 {application} suspended Diflorasone Diacetate 0.0 5 % eCW1 ([facility]) diflorasone diacetate 0.0005 MG/MG Topic al Ointment Diflorasone Diacetate 0.05 % Diflorasone Diacetate 0.05 % 04/22/2020 12:00:00 AM EST 1. 0 {application} suspended Diflorasone Diacetate 0.0 5 % eCW1 ([facility]) diflorasone diacetate 0.0005 MG/MG Topic al Ointment Diflorasone Diacetate 0.05 % Diflorasone Diacetate 0.05 % 04/22/2020 12:00:00 AM EST 1. 0 {application} active Diflorasone Diacetate 0.0 5 % eCW1 ([facility]) diflorasone diacetate 0.0005 MG/MG Topic al Ointment Diflorasone Diacetate 0.05 % Diflorasone Diacetate 0.05 % 04/22/2020 12:00:00 AM EST 1. 0 {application} suspended Diflorasone Diacetate 0.0 5 % eCW1 ([facility]) diflorasone diacetate 0.0005 MG/MG Topic al Ointment Diflorasone Diacetate 0.05 % Diflorasone Diacetate 0.05 % 04/22/2020 12:00:00 AM EST 1. 0 {application} active Diflorasone Diacetate 0.0 5 % eCW1 ([facility]) diflorasone diacetate 0.0005 MG/MG Topic al Ointment Diflorasone Diacetate 0.05 % Diflorasone Diacetate 0.05 % 04/22/2020 12:00:00 AM EST 1. 0 {application} suspended Diflorasone Diacetate 0.0 5 % eCW1 ([facility]) diflorasone diacetate 0.0005 MG/MG Topic al Ointment Diflorasone Diacetate 0.05 % Diflorasone Diacetate 0.05 % 04/22/2020 12:00:00 AM EST 1. 0 {application} suspended Diflorasone Diacetate 0.0 5 % eCW1 ([facility]) diflorasone diacetate 0.0005 MG/MG Topic al Ointment Diflorasone Diacetate 0.05 % Diflorasone Diacetate 0.05 % 04/22/2020 12:00:00 AM EST 1. 0 {application} suspended Diflorasone Diacetate 0.0 5 % eCW1 ([facility]) diflorasone diacetate 0.0005 MG/MG Topic al Ointment Diflorasone Diacetate 0.05 % Diflorasone Diacetate 0.05 % 04/22/2020 12:00:00 AM EST 1. 0 {application} suspended Diflorasone Diacetate 0.0 5 % eCW1 ([facility]) diflorasone diacetate 0.0005 MG/MG Topic al Ointment Diflorasone Diacetate 0.05 % Diflorasone Diacetate 0.05 % 04/22/2020 12:00:00 AM EST 1. 0 {application} suspended Diflorasone Diacetate 0.0 5 % eCW1 ([facility]) diflorasone diacetate 0.0005 MG/MG Topic al Ointment Diflorasone Diacetate 0.05 % Diflorasone Diacetate 0.05 % 04/22/2020 12:00:00 AM EST 1. 0 {application} suspended Diflorasone Diacetate 0.0 5 % eCW1 ([facility]) diflorasone diacetate 0.0005 MG/MG Topic al Ointment Diflorasone Diacetate 0.05 % Diflorasone Diacetate 0.05 % 04/22/2020 12:00:00 AM EST 1. 0 {application} suspended Diflorasone Diacetate 0.0 5 % eCW1 ([facility]) diflorasone diacetate 0.0005 MG/MG Topic al Ointment Diflorasone Diacetate 0.05 % Diflorasone Diacetate 0.05 % 04/22/2020 12:00:00 AM EST 1. 0 {application} suspended Diflorasone Diacetate 0.0 5 % eCW1 ([facility]) diflorasone diacetate 0.0005 MG/MG Topic al Ointment Diflorasone Diacetate 0.05 % Diflorasone Diacetate 0.05 % 04/22/2020 12:00:00 AM EST 1. 0 {application} suspended Diflorasone Diacetate 0.0 5 % eCW1 ([facility]) diflorasone diacetate 0.0005 MG/MG Topic al Ointment Diflorasone Diacetate 0.05 % Diflorasone Diacetate 0.05 % 04/22/2020 12:00:00 AM EST 1. 0 {application} suspended Diflorasone Diacetate 0.0 5 % eCW1 ([facility]) diflorasone diacetate 0.0005 MG/MG Topic al Ointment Diflorasone Diacetate 0.05 % Diflorasone Diacetate 0.05 % 04/22/2020 12:00:00 AM EST 1. 0 {application} suspended Diflorasone Diacetate 0.0 5 % eCW1 ([facility]) atorvastatin 40 MG Oral Tablet atorvastatin (LIPITOR) 40 MG tablet atorvastatin (LIPITOR) 40 MG tablet 03/18/2020 12:00:00 AM EST 80 mg Oral aborted Take 80 mg by mouth daily [facility] potassium chloride SA (K-DUR,KLOR-CON) 20 MEQ tablet [id number] 03/09/2020 12:00:00 AM EDT active 2 (two) times a day [facility] clopidogrel 75 MG Oral Tablet clopidogrel (PLAVIX) 75 MG tablet clopidogrel (PLAVIX) 75 MG tablet 03/08/2020 12:00:00 AM EDT 75 mg Oral aborted Take 1 tablet (75 mg total) by mouth daily [facility] Metoprolol Tartrate 25 MG Oral Tablet me toprolol tartrate (LOPRESSOR) 25 MG tablet metoprolol tartrate (LOPRESSOR) 25 MG tablet 03/08/2020 12:0 0:00 AM EDT 25 mg Oral aborted Take 1 tablet (2 5 mg total) by mouth 2 (two) times a day [facility] atorvastatin 80 MG Oral Tablet atorvastatin (LIPITOR) 80 MG tablet atorvastatin (LIPITOR) 80 MG tablet 03/08/2020 12:00:00 AM EDT 80 mg Oral active Take 1 tablet (80 mg total) by mouth daily [facility] Lancets - Lancets - 03/04/2020 12:00:00 AM EDT act michael Lancets - eCW1 ([facility]) Lancets - Lancets - 03/04/2020 12:00:00 AM EDT act michael Lancets - eCW1 ([facility]) Lancets - Lancets - 03/04/2020 12:00:00 AM EDT act michael Lancets - eCW1 ([facility]) Lancets - Lancets - 03/04/2020 12:00:00 AM EDT act michael Lancets - eCW1 ([facility]) Lancets - Lancets - 03/04/2020 12:00:00 AM EDT act michael Lancets - eCW1 ([facility]) Lancets - Lancets - 03/04/2020 12:00:00 AM EDT act michael Lancets - eCW1 ([facility]) Lancets - Lancets - 03/04/2020 12:00:00 AM EDT act michael Lancets - eCW1 ([facility]) Lancets - Lancets - 03/04/2020 12:00:00 AM EDT act michael Lancets - eCW1 ([facility]) Lancets - Lancets - 03/04/2020 12:00:00 AM EDT act michael Lancets - eCW1 ([facility]) Lancets - Lancets - 03/04/2020 12:00:00 AM EDT act michael Lancets - eCW1 ([facility]) Lancets - Lancets - 03/04/2020 12:00:00 AM EDT act michael Lancets - eCW1 ([facility]) Lancets - Lancets - 03/04/2020 12:00:00 AM EDT act michael Lancets - eCW1 ([facility]) Lancets - Lancets - 03/04/2020 12:00:00 AM EDT act michael Lancets - eCW1 ([facility]) Lancets - Lancets - 03/04/2020 12:00:00 AM EDT act michael Lancets - eCW1 ([facility]) Lancets - Lancets - 03/04/2020 12:00:00 AM EDT act michael Lancets - eCW1 ([facility]) Lancets - Lancets - 03/04/2020 12:00:00 AM EDT act michael Lancets - eCW1 ([facility]) Lancets - Lancets - 03/04/2020 12:00:00 AM EDT act michael Lancets - eCW1 ([facility]) Lancets - Lancets - 03/04/2020 12:00:00 AM EDT suspended Lancets - eCW1 ([facility]) Lancets - Lancets - 03/04/2020 12:00:00 AM EDT act michael Lancets - eCW1 ([facility]) Lancets - Lancets - 03/04/2020 12:00:00 AM EDT act michael Lancets - eCW1 ([facility]) Lancets - Lancets - 03/04/2020 12:00:00 AM EDT act michael Lancets - eCW1 ([facility]) Lancets - Lancets - 03/04/2020 12:00:00 AM EDT act michael Lancets - eCW1 ([facility]) Lancets - Lancets - 03/04/2020 12:00:00 AM EDT act michael Lancets - eCW1 ([facility]) Lancets - Lancets - 03/04/2020 12:00:00 AM EDT act michael Lancets - eCW1 ([facility]) Lancets - Lancets - 03/04/2020 12:00:00 AM EDT act michael Lancets - eCW1 ([facility]) Lancets - Lancets - 03/04/2020 12:00:00 AM EDT act michael Lancets - eCW1 ([facility]) Lancets - Lancets - 03/04/2020 12:00:00 AM EDT act michael Lancets - eCW1 ([facility]) Lancets - Lancets - 03/04/2020 12:00:00 AM EDT act michael Lancets - eCW1 ([facility]) Lancets - Lancets - 03/04/2020 12:00:00 AM EDT suspended Lancets - eCW1 ([facility]) Lancets - Lancets - 03/04/2020 12:00:00 AM EDT act michael Lancets - eCW1 ([facility]) Lancets - Lancets - 03/04/2020 12:00:00 AM EDT act michael Lancets - eCW1 ([facility]) Lancets - Lancets - 03/04/2020 12:00:00 AM EDT act michael Lancets - eCW1 ([facility]) Lancets - Lancets - 03/04/2020 12:00:00 AM EDT act michael Lancets - eCW1 ([facility]) Lancets - Lancets - 03/04/2020 12:00:00 AM EDT act michael Lancets - eCW1 ([facility]) Lancets - Lancets - 03/04/2020 12:00:00 AM EDT act michael Lancets - eCW1 ([facility]) Lancets - Lancets - 03/04/2020 12:00:00 AM EDT act michael Lancets - eCW1 ([facility]) Lancets - Lancets - 03/04/2020 12:00:00 AM EDT act michael Lancets - eCW1 ([facility]) Lancets - Lancets - 03/04/2020 12:00:00 AM EDT suspended Lancets - eCW1 ([facility]) Lancets - Lancets - 03/04/2020 12:00:00 AM EDT act michael Lancets - eCW1 ([facility]) Lancets - Lancets - 03/04/2020 12:00:00 AM EDT act michael Lancets - eCW1 ([facility]) Lancets - Lancets - 03/04/2020 12:00:00 AM EDT act michael Lancets - eCW1 ([facility]) Lancets - Lancets - 03/04/2020 12:00:00 AM EDT act michael Lancets - eCW1 ([facility]) Lancets - Lancets - 03/04/2020 12:00:00 AM EDT act michael Lancets - eCW1 ([facility]) Lancets - Lancets - 03/04/2020 12:00:00 AM EDT act michael Lancets - eCW1 ([facility]) Lancets - Lancets - 03/04/2020 12:00:00 AM EDT act michael Lancets - eCW1 ([facility]) Lancets - Lancets - 03/04/2020 12:00:00 AM EDT act michael Lancets - eCW1 ([facility]) Lancets - Lancets - 03/04/2020 12:00:00 AM EDT act michael Lancets - eCW1 ([facility]) Lancets - Lancets - 03/04/2020 12:00:00 AM EDT act michael Lancets - eCW1 ([facility]) POLYETHYLENE GLYCOL 3350 59 MG/ML / Pota ssium Chloride 0.01 MEQ/ML / Sodium Bicarbonate 0.02 MEQ/ML / Sodium Chloride 0.025 MEQ/ML / sodium sulfate 0.04 MEQ/ML Oral Solution [Golytely] Golytely 02/29/2020 12:00:00 AM EDT active MEDENT ([facility], ) Bisacodyl 5 MG Delayed Release Oral Tablet [Dulcolax] Dulcol ax 02/29/2020 12:00:00 AM EDT ORAL active M EDENT ([facility], ) Triamcinolone Acetonide 0.001 MG/MG Topi fermin Ointment triamcinolone (KENALOG) 0.1 % ointment triamcinolone (KENALOG) 0.1 % ointment 09/28/2019 12:00:00 AM ED T aborted ANNIE AA ON BODY WITH RASH BID [facility] Triamcinolone Acetonide 1 MG/ML Topical Cream triamcinolone (KENALOG) 0.1 % cream triamcinolone (KENALOG) 0.1 % cream 09/27/2019 12:00:00 AM EDT aborted ANNIE EXT AA BID [facility] Potassium Chloride 20 MEQ Extended Relea se Oral Tablet Potassium Chloride ER 20 MEQ TBCR Potassium Chloride ER 20 MEQ TBCR 04/25/2019 12:00:00 AM EST 3 {tbl} aborted 3 tablets 2 (two) ti mes a day [facility] montelukast 10 MG Oral Tablet montelukast (SINGULAIR) 10 MG tablet montelukast (SINGULAIR) 10 MG tablet 04/24/2019 12:00:00 AM EST aborted TK 1 T PO QPM [facility] 0.5 ML dulaglutide 3 MG/ML Auto-Injector [Trulicity] TRULICITY 1.5 MG/0.5ML SOPN TRULICITY 1.5 MG/0.5ML SOPN 01/20/2019 12:00:00 AM EDT aborted ADM 0.5 ML SC 1 TIME WEEKLY [facility] DAILY ABBI (THERAGRAN) per tablet 50359-690-97 1 {tbl} Oral aborted Take 1 tablet by mouth daily [facility] Warfarin Sodium 5 MG Oral Tablet warfarin (COUMADIN) 5 MG tablet warfarin (COUMADIN) 5 MG tablet 2.5 mg Oral aborted Take 2.5 mg by mouth daily 5 mg on Wednesday, Wednesday, Wednesday, , Wednesday, and Wednesday (2.5 mg on wednesday) [facility] Insurance Providers Payer name Policy type / Coverage type Policy ID Covered green party ID Covered green party's relationship to braun Policy Braun Plan Information [facility] [id number] SP [id number] [facility] [id number] SP [id number] [facility] [id number] SP [id number] [employer] [id number] SP [id number] [employer] Other [id number] Self 0 UHC [employer] U [id number] Self [id number] [employer] Other [id number] Self 0 [employer] Other [id number] Self 0 [employer] Other [id number] Self 0 [employer]Health[employer] Other [id number] Self 0 [employer]Health[employer] Other 0 [id number] Self 0 [employer] Other [id number] Self 0 UnitedHealth[employer] Other [id number] Self 0 [employer] Other [id number] Self 0 UHC ESSENTIAL PLAN [id number] SP [id number] [facility] MEDICAID [id number] Naheed [id number] UHC I [id number] Self [id number] UNHC COMMUNITY PLAN MCDHMO [id number] SP [id number] UHC ESSENTIAL PLAN [id number] SP [id number] UNHC COMMUNITY PLAN MCDHMO [id number] SP [id number] UNHC COMMUNITY PLAN MCDHMO [id number] SP [id number] [place] Other 0 [id number] Self 0 UNHC COMMUNITY PLAN MCDHMO [id number] SP [id number] UNHC COMMUNITY PLAN MCDHMO [id number] SP [id number] MEDICAID [id number] SP [id number] MEDICARE [id number] xxxxxxxxxxx [id number] MEDICARE [id number] Naheed [id number] MEDICAID [facility] [id number] SP AN [id number] MEDICARE [id number] SP [id number] UH COMMUNITY PLAN [id number] SP [id number] SELF PAY MEDICARE [id number] SP [id number] SELF PAY MEDICAID [id number] Naheed [id number] MEDICAID [id number] xxxxxxxx [id number] MEDICAID [facility] [id number] SP AN [id number] SELF PAY MEDICARE [id number] SP [id number] INSURANCE COVID-19 COVID Naheed C OVID INSURANCE COVID-19 COVID Naheed C OVID INSURANCE COVID-19 [id number] ANSI-Medicaid [id number] ANSI-Medicaid [id number] ANSI-Not a Secondary Insurance [id number] ANSI-Medicaid [id number] ANSI-Medicaid [id number] ANSI-Medicare Part B [id number] ANSI-Medicaid [id number] ANSI-Not a Secondary Insurance [id number] ANSI-Medicaid [id number] ANSI-Medicaid [id number] ANSI-Medicare Part B [id number] ANSI-Medicaid [id number] ANSI-Medicaid [id number] ANSI-Medicare Part B [id number] ANSI-Medicaid [id number] ANSI-Not a Secondary Insurance [id number] ANSI-Not a Secondary Insurance [id number] ANSI-Medicaid [id number] ANSI-Medicaid [id number] ANSI-Medicaid [id number] ANSI-Medicare Part B [id number] ANSI-Medicaid [id number] ANSI-Medicaid [id number] ANSI-Medicaid [id number] ANSI-Medicare Part B [id number] ANSI-Not a Secondary Insurance [id number] ANSI-Not a Secondary Insurance [id number] ANSI-Medicaid [id number] ANSI-Medicaid [id number] ANSI-Medicaid [id number] ANSI-Medicare Part B [id number] ANSI-Medicare Part B [id number] ANSI-Medicaid [id number] ANSI-Not a Secondary Insurance [id number] ANSI-Medicaid [id number] ANSI-Medicaid [id number] ANSI-Medicaid [id number] ANSI-Not a Secondary Insurance [id number]-[id number]-mdnw-[id number] ANSI-Medicaid [id number] ANSI-Medicaid [id number] ANSI-Medicare Part B [id number] ANSI-Medicare Part B [id number] ANSI-Medicaid [id number] ANSI-Medicaid [id number] ANSI-Medicaid [id number] ANSI-Not a Secondary Insurance [id number] ANSI-Not a Secondary Insurance [id number]-[id number] [id number]-[id number] ANSI-Medicaid [id number] ANSI-Medicare Part B [id number] ANSI-Medicaid [id number] ANSI-Medicaid [id number] ANSI-Medicaid [id number] ANSI-Not a Secondary Insurance [id number] ANSI-Medicare Part B [id number] ANSI-Medicaid [id number] ANSI-Medicaid [id number] ANSI-Medicaid [id number] ANSI-Medicare Part B [id number] ANSI-Not a Secondary Insurance [id number] ANSI-Medicaid [id number] ANSI-Medicaid [id number] ANSI-Medicaid [id number] ANSI-Medicare Part B [id number] ANSI-Medicaid 0l428311-3k46-9028-pl79-4ad5n337sh66 1z115358-0p16-0352-kx45-6ym5w873kc42 ANSI-Medicaid [id number]-[id number]-2o97-0856-104r-[id number] ANSI-Not a Secondary Insurance 3b9198q4-520t-489b-qlua-34j45 720afcf 4l0725g7-758n-518u-ybhz-61v19410hxju ANSI-Medicaid [id number]-18kq-3198-[id number] 678qp40i-61gw-6870-l3x1-4q3j09znn45d ANSI-Not a Secondary Insurance 19d9f0tv-4q19-54t0-683f-36638 164063d 23k6m0ea-9q69-91t9-264s-03994585958t ANSI-Medicaid [id number]-[id number] u3012p23-85s8-69x7-ysg3-[id number] ANSI-Medicaid [id number]-[id number] ANSI-Medicare Part B [id number]-[id number] ANSI-Not a Secondary Insurance 00n23673-k092-5040-194w-151g2 63fbefc 17b04867-x599-1182-553n-365q286peufz ANSI-Medicaid [id number] 9a78z72h-d7d2-16cf-a883-9s91b6e337d3 ANSI-Medicaid [id number]-m4bu-22wa-[id number]-o9rk-61ga-[id number] ANSI-Medicare Part B [id number] ANSI-Medicaid [id number]-2w65-58x1-j2d7htk23cv1 58my3g29-144w-7i56-19d8-h8n6dmo56je1 ANSI-Medicaid slaofob6-zv1k-4a6fat6s-3p1f-9453-[id number] atvkmlg3-hr0h-9d3iou1t-7q4p-3480-rx9a0956aj64 ANSI-Medicaid [id number]-327f-088z-8ga7-[id number] 0xbux00u-076x-763a-7si1-j2634k2n998e ANSI-Medicare Part B [id number]-6don-[id number] ANSI-Medicaid [id number]-[id number] ANSI-Not a Secondary Insurance 90qz33af-45y1-24j8-f530-4hc12 n13f522 19dd45sl-03o7-48s8-q560-6vd49g81s450 ANSI-Medicaid [id number]-ka7p-[id number] uzz8v2q6-nl2z-687r-h26y-[id number] ANSI-Medicaid [id number]-7s4f-[id number] 7m6796x8-0f85-0k7k-9p0a-t5ws52u870q8 ANSI-Not a Secondary Insurance j808lp8d-0433-4322-2949-5kyrc g3p5342 t288zp8c-5560-7022-0942-6mrhlp9x9598 ANSI-Medicaid [id number]-[id number]-3g90-r2k5-j8y5f4hm0069 ANSI-Medicare Part B [id number]-y9y7-[id number] ANSI-Not a Secondary Insurance 045mxsi1-dd9c-9k44-fd25-7459j 50f1kn9 400aore9-jf3p-4n95-lh46-5955o62y3px8 ANSI-Medicaid [id number]-[id number] ANSI-Medicaid [id number]-5xv2-p8oc-[id number]-6ni6-m6ce-[id number] ANSI-Medicare Part B [id number] ANSI-Medicaid [id number]-qrnp-[id number] 39mm87p2-85w3-447k-wcsk-hco00h3og21b ANSI-Not a Secondary Insurance nj69ae3o-82eo-6644-b937-hd364 26b60ze rl64li1b-66fu-2841-a050-oj40378w52kg ANSI-Medicaid [id number]-2666-5gwm-[id number] ANSI-Medicare Part B [id number] ANSI-Medicaid [id number] ANSI-Medicaid [id number]-j07f-45k3-00px-[id number]-12v3-40jc-2o7gmwayyv48 Medicaid [facility] Part B [id number] .8646.57056.0 Self [id number] Medicare [place]/[facility] Medicare Primary [id number] Self [id number] ANSI-Medicare Part B [id number] ANSI-Medicaid [id number] 43pf2l86-ldm8-5p68-y884-3o61y7jc3564 ANSI-Medicaid [id number] 3dx0m35p-3y55-3338-307q-4064a2d0s6n8 ANSI-Not a Secondary Insurance i0kl4933-903o-5lsa-77aj-269i9 8pkl982 r7xz5010-893s-0yhu-83bk-929j11gmy081 ANSI-Medicaid [id number]-[id number] p28e1942-sv49-5vf0-y1th-nt03yrv46f99 ANSI-Not a Secondary Insurance [id number]-892v-9z16-50nm1 e5a1o7t k5745864-212z-910o-2k20-32bo5f3j7m8i ANSI-Medicare Part B [id number]-d5n5-7poc-fxcq-[id number] ANSI-Medicaid [id number]-g3ko-[id number] fc0me9f9-g1qg-73a3-050a-kq741ro1nni1 ANSI-Medicaid [id number]-[id number] 99470pca-y79l-177j-238k-hwi7w4mh02h0 ANSI-Medicaid [id number]-l34u-7j1f-9049-[id number] ANSI-Medicare Part B [id number] ANSI-Medicaid [id number] d4k6q8z3-3w83-38z0-4788-0s1dy1hbp46s ANSI-Not a Secondary Insurance v365ndit-6453-4d01-1yx4-w87bi 7s61s4x y822hgyo-7941-6m50-3pv7-g21rn9q37p6o ANSI-Medicaid [id number] y52e2w71-4p94-569r-[id number] ANSI-Medicaid [id number]-4gr4-j5ik-[id number]-s5ep-3ye9-n0sn-[id number] ANSI-Medicaid [id number]-[id number] 824xhfz5-9zc7-3n98-614r-lt60i8458w0r ANSI-Medicaid [id number]-6v00-[id number]-v605-246s-2b16-ei43snkk5489 ANSI-Medicaid [id number]-1082-58j3-c01f-232e43xz3032 ANSI-Not a Secondary Insurance sr2m3687-57hq-380v-vc59-48igv 3931156 pi6r8681-67es-951v-uu59-55oso1557153 ANSI-Medicare Part B [id number] ANSI-Medicare Part B [id number] ANSI-Medicaid [id number]-[id number]-y8c6-[id number] ANSI-Not a Secondary Insurance 785t97gq-i9mn-20u2-18no-t111v 57o6146 888q01js-t9cf-69k9-07sw-d384v10x0779 ANSI-Medicaid [id number] xzc8d916-85x1-0001-4vl9-1495ovim03y5 ANSI-Medicaid [id number]-9syb-[id number]-1ivo-5t72-7i623itv4aaw ANSI-Medicaid [id number]-a39y-[id number] [id number]-v722-7218-e25u-p38tb36u5q0k ANSI-Medicaid [id number]-f29d-[id number] 19h5dt48-p64p-82d1-88d9-00td7k42270n ANSI-Medicaid [id number] 98fxdipw-[id number] ANSI-Medicare Part B [id number]-xol6-[id number] ANSI-Not a Secondary Insurance 226k9eap-3y62-4119-9oc7-973p9 8v76ogi 909i4rxk-7p69-3720-0aj1-600u07x64qya ANSI-Medicaid [id number]-v7xt-[id number] ANSI-Medicaid [id number]-7pev-0561-[id number] ANSI-Not a Secondary Insurance 499659qi-d953-5ffo-i068-t3gd1 fsdc9w9 101435wn-z041-8rum-t574-p5yf9fthc4o4 ANSI-Medicare Part B [id number] ANSI-Medicaid [id number]-4wun-0060-08sf-[id number] 1g192hbe-8tdk-5772-04zl-6qq5kj7k82en ANSI-Medicaid [id number]-[id number] p8a2zh7o-8454-03o8-0604-16qo6f8n96n6 ANSI-Medicaid [id number]-[id number]-[id number]-pkv1-7f8j-n6a8-[id number] ANSI-Medicare Part B [id number]-2uyc-5aq5-l963-931v3kccebx7 ANSI-Not a Secondary Insurance j028241i-536q-0377-9566-m34e6 88u3202 v062305y-010l-4585-7943-h60t533a0501 ANSI-Medicaid [id number]-[id number] 33dtvb48-l578-94s6-6p2x-92264j855g38 ANSI-Medicaid [id number]-[id number] 1v05w037-xpp8-87ca-z44o-55781127lz4l ANSI-Not a Secondary Insurance y464p023-0cf3-12v8-g971-h0ks8 934ph29 q474p002-3ru8-28x3-z895-a6cs8951pe45 ANSI-Medicaid [id number] ANSI-Medicare Part B [id number]-[id number]-[id number] ANSI-Medicaid [id number]-2yo5-4803-l3a6-vj3z7gn4vk32 ANSI-Medicaid [id number]-t13c-[id number] ANSI-Medicaid [id number] ANSI-Medicaid [id number]-hyin-08t6-2m63-91pl2fps84m1 by2if15z-wgsy-44a4-1l68-10nk0ubk21k9 ANSI-Not a Secondary Insurance 9r8a801j-p88s-1ut1-7434-61333 w72o8l0 1z6v350x-v36o-1co4-4453-68153j71d6k4 ANSI-Medicare Part B [id number]4k8p7x9p618 ANSI-Medicaid [id number] g198038q-8d89-907z-2r48-864tfo7ub5c5 ANSI-Medicaid [id number]-[id number]-u2bc-83y4-09t5-[id number] ANSI-Medicaid [id number] 9i2d3634-5op8-223z-mh67-9747wj6400d5 ANSI-Not a Secondary Insurance t80q39l4-s14f-598m-8c41-r9639 a1g413b r03r89i0-b29f-306p-4k49-g6249w8r001q ANSI-Medicare Part B [id number]-5o97-ksd4-83j6k73j4sq6 ANSI-Medicare Part B [id number] ANSI-Not a Secondary Insurance 131s2174-h570-9o4x-9817-03yij s630933 715g8675-l532-0n7q-7403-33udps859533 ANSI-Medicaid [id number]-5dhe-[id number]-34em-2poo-n33s-53140fe079b3 ANSI-Medicaid [id number]-[id number] 72l7l6f5-pq93-45i3-dc2u-m5701o11ji62 ANSI-Medicaid [id number]-ojbx-[id number] 88140p6d-9843-7c4s-xoga-5xpux455p41t ANSI-Medicaid [id number]-xfu4-0r34-[id number] h9a928fy-bir6-4w11-x4y0-1cj8971ge74p ANSI-Medicaid [id number]-[id number] c3tak850-50oc-0815-6w37-y8mm2t4443zh ANSI-Not a Secondary Insurance o4v97612-q632-209l-ju1g-91qo8 4444h7r o1j81189-c489-201q-ot6d-72na79715f5i ANSI-Medicare Part B [id number]-8t46-62a5-49bc-[id number] ANSI-Medicaid [id number]-3044-85ov-0o63-izkm0f1u7380 ANSI-Medicare Part B [id number] [id number]-8k35-19up-447d-9no66m6013y7 ANSI-Not a Secondary Insurance c70ez5o3-1zgr-5x83-wud2-0h177 w11m1ws u48pq7s2-6rnw-3y97-kvy9-1q917r50v8gq ANSI-Medicaid [id number]-fsq9-yw3x79ow8by4 7bzqjj94-1539-43v2-nol6-lb8j78fu1kh3 ANSI-Medicaid [id number]-b6hh-251v-[id number] 38hr22p7-r2fe-080i-r291-88v7700j73l6 ANSI-Medicaid [id number]-6a33-4rs4-[id number] 01511r8t-0j98-7sn7-v052-8056nsi6sd3d ANSI-Not a Secondary Insurance q79d23du-l0y9-2m6y-5179-5wy0l j90657s f65w38ii-u2y1-8w2v-8784-5xw4nj25173i ANSI-Medicare Part B [id number] ANSI-Medicaid [id number]-[id number]-pb31-[id number] 3207r789-i10p-2j3i-ik78-u7k7402hsf3k ANSI-Medicaid [id number]-y066-4728-[id number] xhab707u-r715-8608-tx69-9072a2645geh ANSI-Medicaid [id number]-[id number] b8s1z8x4-8m38-8025-hhif-[id number] ANSI-Medicaid g119nzyp-8v1x-6paj-2337-[id number] q671vlzg-7x0v-5ztc-2434-j76lp8iz836j ANSI-Not a Secondary Insurance x68b050s-084d-35h6-hn85-f4657 wk3g018 k16d529l-701a-43e7-hn61-d2986hl6p843 ANSI-Medicare Part B [id number]-[id number] ANSI-Medicaid [id number]-1147-8451-qd7d-9ur82g2698e2 ANSI-Medicaid [id number]-[id number] ANSI-Medicaid e43ssy9r-7up7-9g59-12ph-[id number] j72prm7o-6jj8-1m04-85py-jq79f04i307i ANSI-Medicaid [id number]-[id number] [id number]-g127-02m3-1z5n-8w9ar88n3s43 ANSI-Medicare Part B [id number]-[id number] ANSI-Medicaid [id number]-5jco-[id number] 0651f9x4-4m9k-4rtz-k887-682023f58d2u ANSI-Not a Secondary Insurance te96qhv7-3624-130l-6qjy-e10y9 3rwsu7i uo04xlc0-0027-178y-3nru-c27k33ffdo0x ANSI-Medicaid [id number]-r0af-8z60-uo62-[id number] ANSI-Not a Secondary Insurance [id number]-vpuf-8v2a-10yo-48148 74ypu4z 9985976k-rpip-3n1h-04we-3042455noj3w ANSI-Medicaid [id number]-6qj4-[id number] t087j213-fhji-5ne8-nmr3-o10k9cf94007 ANSI-Medicaid [id number]-6ifh-[id number] ANSI-Medicare Part B [id number]-[id number] ANSI-Not a Secondary Insurance 830zhy69-6n89-000h-l096-n551p gq36994 434ven34-4f87-697s-o813-y530exp26671 ANSI-Medicaid [id number] ANSI-Medicare Part B [id number]-t8m9-[id number] ANSI-Medicaid [id number]-sh0l-3wv3y2vcl6p1 [id number]-jo2o-6ft6u0zji0g3 ANSI-Medicaid [id number]-37j6-52q8-[id number] ANSI-Medicaid [id number] ANSI-Medicare Part B [id number] ANSI-Medicaid [id number] ANSI-Medicaid [id number]-87kv-[id number] 5t0z22j5-4483-91vc-57wo-0881aod3m8w7 ANSI-Not a Secondary Insurance 0312u427-20q7-010o-2lnh-38w48 1182ia8 5448r764-27c4-033y-7hpz-64h697862jb5 ANSI-Medicare Part B [id number]-yt21-41t8-z7hh-x185s5s55y6l ANSI-Not a Secondary Insurance 3lf6p3b6-iq45-1h1j-093o-4j154 y6700jw 8xg7u7u8-bc33-2s3i-728c-9g715c0029of ANSI-Medicaid [id number]-[id number] ANSI-Medicaid [id number]-[id number] z0aj8jq0-43iv-0wf9-2d5w-[id number] ANSI-Medicaid 62y4zq24-dec8-9x1o-467n-d0f13bq7l3ad [id number]-dxl2-3t3e-718n-b1z70dm8q3he Medicaid [facility] Part B [id number] .8646.40022.0 Self [id number] Medicare [place]/[facility] Medicare Primary [id number] Self [id number] ANSI-Not a Secondary Insurance [id number]-z870-926f-e0i4-7z2m1 kv333fp za969039-y115-280v-z8y7-2p3h4ml023uy ANSI-Medicaid [id number]-[id number] 2bhz9qv1-il40-98o6-ai1b-37255d24e53o ANSI-Medicaid [id number]-[id number] ANSI-Medicare Part B [id number] ANSI-Medicaid [id number] ANSI-Medicare Part B [id number] ANSI-Medicaid [id number] ANSI-Medicaid [id number]-[id number]-[id number] ANSI-Not a Secondary Insurance [id number]-16m8-[id number]-6oi54 [id number]-96v0-j2wl-[id number] ANSI-Medicaid [id number] ANSI-Medicaid [id number] ANSI-Medicaid [id number]-[id number] ANSI-Not a Secondary Insurance [id number] 2034i9z [id number]-1v14-[id number] ANSI-Medicaid [id number] ANSI-Medicare Part B [id number] ANSI-Medicaid [id number] ANSI-Medicare Part B [id number] ANSI-Medicaid [id number] ANSI-Medicaid [id number] ANSI-Not a Secondary Insurance [id number]-1kx9-3o0y-[id number]-3pv2-5w7m-[id number] ANSI-Medicaid [id number] ANSI-Medicaid [id number] ANSI-Medicaid [id number] ANSI-Medicare Part B [id number] ANSI-Not a Secondary Insurance [id number] ANSI-Medicaid [id number] ANSI-Medicaid [id number] ANSI-Medicare Part B [id number] ANSI-Medicaid [id number] ANSI-Not a Secondary Insurance [id number] [id number]-[id number] ANSI-Medicare Part B [id number] ANSI-Medicaid [id number] ANSI-Not a Secondary Insurance [id number] [id number] ANSI-Medicaid [id number] ANSI-Medicaid [id number] ANSI-Not a Secondary Insurance [id number]-[id number] ANSI-Medicare Part B [id number] ANSI-Medicaid [id number] [place] [id number] SP [id number] ANSI-Medicaid [id number] MEDICARE C [id number] S [id number] A Medicare Natl Gov't Servi Medicare Primary [id number] ..[id number] Self [id number] Medicaid [place] Medigap Part B [id number] Self [id number] Medicare Upstate/[facility] Medicare Primary [id number] ..[id number] Self [id number] [facility] COMMUNITY PLAN [facility] [id number] SP [id number] [place] [id number] ..[id number] Self [id number] Medicare Upstate/[facility] Medicare Primary [id number] ..[id number] Self [id number] [facility] Medigap Part B [id number] Self [id number] [facility] Health Maintenance Organization (HMO) [id number] Self [id number] [facility] O [id number] S [id number] [facility] COMMUNITY PLAN [facility] [id number] SP [id number] [facility] [id number] Self [id number] [facility] ESSENTIAL PLAN [id number] SP [id number] [facility] CARE COMMUNITY PLAN [facility] COMMUNITY PLAN [id number] Commercial Insurance [facility] CARE COMMUNITY PLAN ID IDENTIFICATION ID IDENTIFICATION .[id number] Other Insurance ID IDENTIFICATION MVP O [id number] S [id number] [facility] [id number] SP [id number] [facility] [id number] SP [id number] ANSI-Medicaid [id number] MEDICARE [id number] SP [id number] [place] [id number] SP [id number] MEDICARE C [id number] S [id number] MEDICAID M [id number] S [id number] MEDICAID [id number] SP [id number] MEDICARE [id number] SP [id number] ANSI-Medicaid [id number] ANSI-Not a Secondary Insurance [id number] ANSI-Medicare Part B [id number] ANSI-Medicaid [id number] ANSI-Medicaid [id number] ANSI-Medicare Part B [id number] ANSI-Not a Secondary Insurance [id number] ANSI-Medicaid [id number] ANSI-Medicaid [id number] ANSI-Medicaid [id number] ANSI-Medicare Part B [id number] ANSI-Medicaid [id number] ANSI-Not a Secondary Insurance [id number] ANSI-Medicaid [id number] ANSI-Medicaid [id number] ANSI-Medicare Part B [id number] ANSI-Not a Secondary Insurance [id number] ANSI-Medicaid [id number] ANSI-Medicaid [id number] ANSI-Medicaid [id number] ANSI-Medicare Part B [id number] ANSI-Medicaid [id number] ANSI-Medicaid [id number] ANSI-Not a Secondary Insurance [id number] ANSI-Medicaid [id number] ANSI-Medicaid [id number] ANSI-Medicare Part B [id number] ANSI-Medicaid [id number] ANSI-Not a Secondary Insurance [id number] ANSI-Medicaid [id number] ANSI-Medicaid [id number] ANSI-Medicare Part B [id number] ANSI-Not a Secondary Insurance [id number] ANS-Medicaid [id number] Problems, Conditions, and Diagnoses Code Display Name Description Problem Type Effective Dates Data Source(s) I10 Essential (primary) hypertension Essential (primary) h ypertension Diagnosis 12/20/2020 12:54:45 PM EDT [facility] E78.2 Mixed hyperlipidemia Mixed hyperlipidemia Diagnosis 12/20/2020 12:54:45 PM EDT [facility] Z79.4 penitentiary (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 insulin penitentiary (cu rrent) use of insulin Diagnosis 12/20/2020 12:54:45 PM EDT [facility] E11.9 Type 2 diabetes mellitus without complic ations Type 2 diabetes mellitus without complic Diagnosis 12/20/2020 12:54:45 PM EDT [facility] N18.30 Chronic kidney disease, stage 3 unspecif ied Chronic kidney disease, stage 3 unspecif Diagnosis 12/20/2020 12:54:45 PM EDT [facility] 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 Occlusion and stenosis of bilateral barreto Diagnosis 12/20/2020 12:54:45 PM EDT [facility] R06.00 Dyspnea, unspecified Dyspnea, unspecified Diagnosis 12/20/2020 12:54:45 PM EDT [facility] I50.32 Chronic diastolic (congestive) heart tatiana lure Chronic diastolic (congestive) heart tatiana Diagnosis 12/20/2020 12:54:45 PM EDT [facility] I48.0 Paroxysmal atrial fibrillation Paroxysmal atrial fibri llation Diagnosis 12/20/2020 12:54:45 PM EDT [facility] I25.10 Atherosclerotic heart diseas e of [place] coronary artery without angina pectoris Atherosclerotic heart disease of [place] Diagnosis 12/20/2020 12:54:45 PM EDT [facility] G47.33 Obstructive sleep apnea (adult) (pediatr ic) Obstructive sleep apnea (adult) (pediatr Diagnosis 09/19/2020 01:57:10 PM EDT [facility] Z86.711 Personal history of pulmonary embolism P ersonal history of pulmonary embolism Diagnosis 09/19/2020 01:57:10 PM EDT [facility] E66.01 Morbid (severe) obesity due to excess ca lories Morbid (severe) obesity due to excess ca Diagnosis 09/19/2020 01:57:10 PM EDT [facility] Z79.01 [id number] penitentiary (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 anticoagulants Problem 02/07/2021 12:00:00 AM EDT eCW1 ([facility]) E11.40 [id number] Type 2 diabetes aung itus with diabetic neuropathy, unspecified whether mcc insulin use Problem 12/30/2020 12:00:0 0 AM EDT eCW1 ([facility]) Z01.818 Preoperative clearance Preoperative clearance [id number] 12/24/2020 12:00:00 AM EDT [facility] I50.32 Chronic diastolic congestive heart failu re Chronic diastolic congestive heart failure [id number] 09/19/2020 12:00:00 AM EDT [facility] E78.5 HLD (hyperlipidemia) HLD (hyperlipidemia) [id number] 09/19/2020 12:00:00 AM EDT [facility] J30.9 [id number] Allergic rhinitis, unspecified s easonality, unspecified trigger Problem 09/03/2020 12:00:00 AM EDT eCW1 ([facility]) I48.0 Paroxysmal atrial fibrillation Paroxysmal atrial fibri llation [id number] 07/24/2020 12:00:00 AM EST [facility] Z86.711 [id number] History of pulmonary embolus (PE) Problem 07/02/2020 12:00:00 AM EST eCW1 ([facility]) L50.9 [id number] Hives Problem 05/27/2020 12:00:00 AM ES T eCW1 ([facility]) N18.32 [id number] Stage 3b chronic kidney disease Problem 05/27/2020 12:00:00 AM EST eCW1 ([facility]) M46.46 [id number] Discitis of lumbar region Problem 05/21/2020 12:00:00 AM EST eCW1 ([facility]) G47.33 [id number] MENDEL (obstructive sleep apnea) Problem 04/29/2020 12:00:00 AM EST eCW1 ([facility]) E66.01 [id number] Morbid obesity due to excess calories Pro blem 04/29/2020 12:00:00 AM EST eCW1 ([facility]) I25.811 [id number] 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 Problem 03/25/2020 12:00: 00 AM EST eCW1 ([facility]) E78.5 [id number] Hyperlipidemia, unspecified hyperlipidemi a type Problem 03/25/2020 12:00:00 AM EST eCW1 ([facility]) I65.23 [id number] Bilateral carotid artery stenosis Problem 03/25/2020 12:00:00 AM EST eCW1 ([facility]) Z86.711 [id number] History of pulmonary embolism Problem 03/25/2020 12:00:00 AM EST eCW1 ([facility]) K59.00 [id number] Constipation, unspecified constipation ty pe Problem 03/04/2020 12:00:00 AM EDT eCW1 ([facility]) I10 Essential hypertension Essential hypertension Problem 03/04/2020 12:00:00 AM EDT eCW1 ([facility]) Surgeries/Procedures Procedure Description Date Indications Data Source(s) OFFICE OUTPATIENT VISIT 25 MINUTES 02/07/2021 12:00:00 AM EDT [facility] ([facility]) Amb Glucose Monitoring 1St 72 HRS Sensor Placement, 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 Production 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 02/05/2021 12:00:00 AM EDT [facility] ([facility]) OFFICE OUTPATIENT VISIT 5 MINUTES 02/05/2021 12:00:00 AM EDT [facility] ([facility]) OFFICE OUTPATIENT VISIT 40 MINUTES 01/23/2021 12:00:00 AM EDT [facility] ([facility]) ECG ROUTINE ECG W/LEAST 12 LDS W/I&R <td>POCT AMB EKG</td><td>Routine</td><td>12/24/2020 7:54 AM EDT</td><td> Paroxysmal atrial fibrillation Preoperative clearance</td><td> </td> 12/24/2020 07:54:00 AM EDT Preoperative clearanceParoxysmal atrial fibrillation [facility] Preoperative clearance Paroxysmal atrial fibrillation PROTHROMBIN TIME <td>PROTIME- INR</td><td>Routine</td><td>12/19/2020</td><td></td><td> </td> 12/19/2020 12:00:00 AM EDT [facility] BLOOD COUNT COMPLETE AUTO&AUTO DIFRNTL WBC COUNT <td>C BC AND DIFFERENTIAL</td><td>Routine</td><td>12/19/2020</td><td></td><td> </td> 12/19/2020 12:00:00 AM EDT [facility] PROTHROMBIN TIME <td>POCT INR</td><td>Routine</td><td>12/19/2020</td><td></td><td> </td> 12/19/2020 12:00:00 AM EDT [facility] PROTHROMBIN TIME <td>POCT INR</td><td>Routine</td><td>12/19/2020</td><td></td><td> </td> 12/19/2020 12:00:00 AM EDT [facility] HEPATIC FUNCTION PANEL <td>HEPATIC FUNCTION PANEL</td><td>Routine</td><td>12/19/2020</td><td></td><td> </td> 12/19/2020 12:00:00 AM EDT [facility] HEPATIC FUNCTION PANEL <td>HEPATIC FUNCTION PANEL</td><td>Routine</td><td>12/19/2020</td><td></td><td> </td> 12/19/2020 12:00:00 AM EDT [facility] LIPID PANEL <td>LIPID PANEL</td><td>Rout ine</td><td>12/19/2020</td><td></td><td> </td> 12/19/2020 12:00:00 AM EDT [facility] BASIC METABOLIC PANEL CALCIUM TOTAL <td>BASIC METABOLI C PANEL</td><td>Routine</td><td>12/19/2020</td><td></td><td> </td> 12/19/2020 12:00:00 AM EDT [facility] BASIC METABOLIC PANEL CALCIUM TOTAL <td>BASIC METABOLI C PANEL</td><td>Routine</td><td>12/19/2020</td><td></td><td> </td> 12/19/2020 12:00:00 AM EDT [facility] THYROID STIMULATING HORMONE TSH <td>TSH</td><td>Routine</td><td>12/16/2020</td><td></td><td> </td> 12/16/2020 12:00:00 AM EDT [facility] LIPID PANEL <td>LIPID PANEL</td><td>Rout ine</td><td>12/16/2020</td><td></td><td> </td> 12/16/2020 12:00:00 AM EDT [facility] BASIC METABOLIC PANEL CALCIUM TOTAL <td>BASIC METABOLI C PANEL</td><td>Routine</td><td>12/16/2020</td><td></td><td> </td> 12/16/2020 12:00:00 AM EDT [facility] OFFICE OUTPATIENT NEW 45 MINUTES 12/16/2020 12:00:00 A M EDT [facility] ([facility]) OFFICE OUTPATIENT VISIT 25 MINUTES 10/17/2020 12:00:00 AM EDT [facility] ([facility] ) ECG ROUTINE ECG W/LEAST 12 LDS W/I&R <td>POCT AMB EKG</td><td>Routine</td><td>09/19/2020 3:11 PM EDT</td><td> Paroxysmal atrial fibrillation</td><td> </td> 09/19/2020 03:11:00 PM EDT Paroxysmal atrial fibrillation [facility] Paroxysmal atrial fibrillation Diabetic Foot Exam 09/04/2020 12:00:00 AM EDT [facility] ([facility]) OFFICE OUTPATIENT VISIT 25 MINUTES 09/04/2020 12:00:00 AM EDT [facility] ([facility]) ECG ROUTINE ECG W/LEAST 12 LDS W/I&R <td>POCT AMB EKG</td><td>Routine</td><td>07/25/2020 8:25 AM EST</td><td> Coronary artery disease involving [place] coronary artery of [place] heart without angina pectoris</td><td> </td> 07/25/2020 01:25:00 PM EST Coronary artery disease involving [place] coronary artery of [place] heart without angina pectoris [facility] Coronary artery disease involving [place] coronary artery of [place] heart without angina pectoris Colonoscopy Flexible Proximal To Splenic Flexure W/Biopsy Si ngle/ 03/26/2020 12:00:00 AM EST [facility] ([facility]) Colonoscopy W/ Poly 03/26/2020 12:00:00 AM EST [facility] ([facility]) Results ID Date Data Source PT-INR Fingerstick 04/09/2021 12:00:00 AM EST eCW1 ([facility]) Name Value Range Interpretation Code Description Data Jeanette rce(s) Supporting Document(s) CForney Verified Patient's Name a nd eCW1 ([facility]) 2.5 INR eCW1 ([facility]) 5 mg thur-sun Current Dose 1 eCW1 ([facility]) 5 mg tabs Tab Strength eCW1 ([facility]) 7.5 mg M-W Current Dose 2 eCW1 ([facility]) DVT Indication for Anticoagulation eCW1 ([facility]) Recent Bleeding eCW1 ([facility]) home test Internal QC Acceptable (Y /N) eCW1 ([facility]) 2-3 Therapeutic Range eCW1 ([facility]) Education Given (Date / Initia ls) eCW1 ([facility]) New Dose 2 eCW1 ([facility]) none New Dose 1 eCW1 ([facility]) Weekly Total eCW1 ([facility]) - eCW1 ([facility]) Next PT-INR eCW1 ([facility]) ID Date Data Source PSA SCREENING 03/24/2021 12:00:00 AM EST eCW1 ([facility]) Name Value Range Interpretation Code Description Data Jeanette rce(s) Supporting Document(s) 0.60 < 4.00 PSA SCREENING eCW1 ([facility]) ID Date Data Source [id number] 01/23/2021 12:12:00 PM EDT [facility] ([facility]) Name Value Range Interpretation Code Description Data Jeanette rce(s) Supporting Document(s) Glucose [Mass/volume] in Serum or Plasma 133 [facility] ([facility] ) Hemoglobin A1c/Hemoglobin.total in Blood 6.5 [facility] ([facility] ) ID Date Data Source [id number] 12/16/2020 05:06:00 PM EDT [facility] Name Value Range Interpretation Code Description Data Jeanette rce(s) Supporting Document(s) SARS coronavirus 2 RNA [Presence] in Res piratory specimen by JUDI with probe detection NEGATIVE [facility] This lab was ordered by [facility] a nd reported by [facility]. ID Date Data Source [id number] 12/16/2020 12:00:00 AM EDT [facility] Name Value Range Interpretation Code Description Data Jeanette rce(s) Supporting Document(s) SARS-CoV2 Rapid Antigen Negative [facility] This lab was reported by [facility]. ID Date Data Source PT-INR 12/16/2020 12:00:00 AM EDT eCW1 ([facility]) Name Value Range Interpretation Code Description Data Jeanette rce(s) Supporting Document(s) INR in Platelet poor plasma by Coagulation assay 2.3 INR eCW1 ([facility]) 7.5 mg Daily Current Dose 1 eCW1 ([facility]) Current Dose 2 eCW1 ([facility]) 5mg Tab Strength eCW1 ([facility]) Verified Patient's Name and DO B eCW1 ([facility]) Ecchymosis or Bleeding Noted e CW1 ([facility]) DVT Indication for Anticoagulation eCW1 ([facility]) 2-3 INR Range eCW1 ([facility]) Prothrombin Time/INR eCW1 ([facility]) Protime eCW1 ([facility]) Hold for Day(s) eCW1 ([facility]) Education Given (Date / Initia ls) eCW1 ([facility]) New Dose 2 eCW1 ([facility]) New Dose 1 eCW1 ([facility]) Comments for PT-INR eCW1 ([facility]) Next PT Check eCW1 ([facility]) ID Date Data Source [id number] 10/17/2020 02:00:00 PM EDT [facility] ([facility]) Name Value Range Interpretation Code Description Data Jeanette rce(s) Supporting Document(s) Hemoglobin A1c/Hemoglobin.total in Blood 6.0 [facility] ([facility]) Glucose [Mass/volume] in Serum or Plasma 98 [facility] ([facility]) ID Date Data Source [id number] 07/09/2020 02:29:00 PM EST [facility] ([facility]) Name Value Range Interpretation Code Description Data Jeanette rce(s) Supporting Document(s) Glucose [Mass/volume] in Serum or Plasma 122 [facility] ([facility]) Hemoglobin A1c/Hemoglobin.total in Blood 9.3 [facility] ([facility]) ID Date Data Source Basic Metabolic Profile (BMP) 07/09/2020 12:00:00 AM EST eCW 1 ([facility]) Name Value Range Interpretation Code Description Data Jeanette rce(s) Supporting Document(s) 191 70-100 GLUCOSE, FASTING eCW1 ([facility]) 39.5 >49 GLOMERULAR FILTRATION RATE eCW 1 ([facility]) 136 136-145 SODIUM LEVEL eCW1 ([facility]) 1.83 0.70-1.30 CREATININE FOR GFR eCW1 ([facility]) 22 7-18 BLOOD UREA NITROGEN eCW1 ([facility]) 33 21-32 CARBON DIOXIDE LEVEL eCW1 ([facility]) 8.8 8.8-10.2 CALCIUM LEVEL eCW1 ([facility]) 3.7 3.5-5.1 POTASSIUM SERUM eCW1 ([facility]) 96 98-107 CHLORIDE LEVEL eCW1 ([facility]) ID Date Data Source ERYTHROCYTE SEDIMENTATION RATE 07/09/2020 12:00:00 AM EST eC W1 ([facility]) Name Value Range Interpretation Code Description Data Jeanette rce(s) Supporting Document(s) 60 0-20 ERYTHROCYTE SEDIMENTATION RATE eCW1 ([facility]) ID Date Data Source C REACTIVE PROTEIN QUANTITATIV (At [facility]) 07/09/2020 12:00 :00 AM EST eCW1 ([facility]) Name Value Range Interpretation Code Description Data Jeanette rce(s) Supporting Document(s) 1.67 0.00-0.30 C REACTIVE PROTEIN QUANTI TATIV eCW1 ([facility]) ID Date Data Source CBC with Differential 07/09/2020 12:00:00 AM EST eCW1 ([facility]) Name Value Range Interpretation Code Description Data Jeanette rce(s) Supporting Document(s) 9.4 4.0-10.0 WHITE BLOOD COUNT eCW1 ([facility]) 43.1 42.0-52.0 HEMATOCRIT eCW1 ([facility]) 14.2 13.5-17.5 HEMOGLOBIN eCW1 ([facility]) 4.37 4.30-6.10 RED BLOOD COUNT eCW1 ([facility]) 32.9 32.0-36.5 MEAN CORPUSCULAR HGB CONC eCW1 ([facility]) 98.6 80.0-96.0 MEAN CORPUSCULAR VOLUME e CW1 ([facility]) 32.5 27.0-33.0 MEAN CORPUSCULAR HEMOGLOB IN eCW1 ([facility]) 14.7 11.5-14.5 RED CELL DISTRIBUTION WID TH eCW1 ([facility]) 70.1 36.0-66.0 NEUTROPHILS % eCW1 ([facility]) 9.4 2.0-8.0 MONO % eCW1 ([facility]) 173 150-450 PLATELET COUNT, AUTOMATED eCW1 ([facility]) 16.6 24.0-44.0 LYMPH % eCW1 ([facility]) 3.0 0.0-3.0 EOS % eCW1 ([facility]) 1.6 1.5-5.0 LYMPH # eCW1 ([facility]) 6.6 1.5-8.5 NEUTROPHILS # eCW1 ([facility]) 0.6 0.0-1.0 BASO % eCW1 ([facility]) 0.1 0.0-0.2 BASO # eCW1 ([facility]) 0.3 0.0-0.5 EOS # eCW1 ([facility]) 0.9 0.0-0.8 MONO # eCW1 ([facility]) ID Date Data Source [id number] 05/21/2020 03:23:00 PM EST [facility] ([facility]) Name Value Range Interpretation Code Description Data Jeanette rce(s) Supporting Document(s) Hemoglobin A1c/Hemoglobin.total in Blood 10.9 [facility] ([facility]) Glucose [Mass/volume] in Serum or Plasma 175 [facility] ([facility]) ID Date Data Source [id number] 05/14/2020 02:09:00 PM EST [facility] Name Value Range Interpretation Code Description Data Jeanette rce(s) Supporting Document(s) SARS-CoV-2 (COVID 19) [facility] This lab was ordered by [facility] a nd reported by [facility]. ID Date Data Source [id number] 05/02/2020 12:42:00 PM EST [facility] Name Value Range Interpretation Code Description Data Jeanette rce(s) Supporting Document(s) SARS-CoV-2 (COVID 19) [facility] This lab was ordered by [facility] a nd reported by [facility]. ID Date Data Source [id number] 03/26/2020 09:05:00 AM EST [facility] ([facility], ) Name Value Range Interpretation Code Description Data Jeanette rce(s) Supporting Document(s) Surgical pathology study Laboratory test result [facility] ([facility], ) FINAL DIAGNOSIS A-Colon, splenic flexure polyps, polypectomy: Tubular adenoma, fragments. B-Colon, cecal polyp, polypectomy: Tubular adenoma, fragments. C-Colon, random biopsy: Colonic mucosa with hyperplastic changes and nonspecific mild inflammation. No histologic evidence of microscopic colitis. 03/27/20201248 CLINICAL DIAGNOSIS Change in bowel habits, diarrhea 03/27/2020720 GROSS DIAGNOSIS A - Received in formalin labeled "polyps splenic flexure" and consists of a fragment of tissue 0.3 x 0.3 x 0.2 cm. All in one. B - Received in formalin labeled "cecal polyp" and consists of a fragment of tissue 0.1 x 0.1 x 0.1 cm. All in one. C - Received in formalin labeled "random colon biopsy R/O microscopic colitis" and consists of a fragment of tissue 0.1 x 0.1 x 0.1 cm. All in one. -OA 03/27/2020720 Signed ANIBAL RAMEY MD 03/27/20201248 ID Date Data Source [id number] 03/21/2020 12:00:00 PM EST [facility] Name Value Range Interpretation Code Description Data Jeanette rce(s) Supporting Document(s) SARS coronavirus 2 RNA [facility] This lab was ordered by [facility] and reported by [facility]. ID Date Data Source [id number] 03/05/2020 11:52:00 AM EDT [facility] ([facility]) Name Value Range Interpretation Code Description Data Jeanette rce(s) Supporting Document(s) Hemoglobin A1c/Hemoglobin.total in Blood 9.2 [facility] ([facility]) Glucose [Mass/volume] in Serum or Plasma 201 [facility] ([facility]) Procedure Social History Code Duration Value Status Description Data Source(s ) Smoking 03/24/2021 12:00:00 AM EST Former Smoker completed Former Smoker eCW1 ([facility]) Smoking 03/24/2021 12:00:00 AM EST Former Smoker completed Former Smoker eCW1 ([facility]) Smoking 03/24/2021 12:00:00 AM EST Former Smoker completed Former Smoker eCW1 ([facility]) Smoking 02/10/2021 12:00:00 AM EDT Former Smoker completed Former Smoker eCW1 ([facility]) Smoking 02/10/2021 12:00:00 AM EDT Former Smoker completed Former Smoker eCW1 ([facility]) Smoking 02/10/2021 12:00:00 AM EDT Former Smoker completed Former Smoker eCW1 ([facility]) Smoking 02/10/2021 12:00:00 AM EDT Former Smoker completed Former Smoker eCW1 ([facility]) Smoking 02/10/2021 12:00:00 AM EDT Former Smoker completed Former Smoker eCW1 ([facility]) Smoking 02/10/2021 12:00:00 AM EDT Former Smoker completed Former Smoker eCW1 ([facility]) Smoking 12/31/2020 12:00:00 AM EDT Former Smoker completed Former Smoker eCW1 ([facility]) Smoking 12/31/2020 12:00:00 AM EDT Former Smoker completed Former Smoker eCW1 ([facility]) Smoking 12/31/2020 12:00:00 AM EDT Former Smoker completed Former Smoker eCW1 ([facility]) Smoking 12/31/2020 12:00:00 AM EDT Former Smoker completed Former Smoker eCW1 ([facility]) Smoking 12/23/2020 12:00:00 AM EDT Former Smoker completed Former Smoker eCW1 ([facility]) Smoking 12/23/2020 12:00:00 AM EDT Former Smoker completed Former Smoker eCW1 ([facility]) Alcohol intake 12/20/2020 12:00:00 AM EDT Current drinker of al cohol (finding) completed Current drinker of alcohol (finding) [facility] Smoking 12/16/2020 12:00:00 AM EDT Patient is a former smoker completed Patient is a former smoker [facility] ([facility]) Smoking 11/25/2020 12:00:00 AM EDT Former Smoker completed Former Smoker eCW1 ([facility]) Smoking 11/25/2020 12:00:00 AM EDT Former Smoker completed Former Smoker eCW1 ([facility]) Smoking 11/25/2020 12:00:00 AM EDT Former Smoker completed Former Smoker eCW1 ([facility]) Alcohol intake 09/19/2020 12:00:00 AM EDT Current drinker of al cohol (finding) completed Current drinker of alcohol (finding) [facility] Smoking 09/03/2020 12:00:00 AM EDT Former Smoker completed Former Smoker eCW1 ([facility]) Smoking 09/03/2020 12:00:00 AM EDT Former Smoker completed Former Smoker eCW1 ([facility]) Smoking 09/03/2020 12:00:00 AM EDT Former Smoker completed Former Smoker eCW1 ([facility]) Smoking 09/03/2020 12:00:00 AM EDT Former Smoker completed Former Smoker eCW1 ([facility]) Smoking 09/03/2020 12:00:00 AM EDT Former Smoker completed Former Smoker eCW1 ([facility]) Smoking 09/03/2020 12:00:00 AM EDT Former Smoker completed Former Smoker eCW1 ([facility]) Smoking 09/03/2020 12:00:00 AM EDT Former Smoker completed Former Smoker eCW1 ([facility]) Smoking 09/03/2020 12:00:00 AM EDT Former Smoker completed Former Smoker eCW1 ([facility]) Smoking 09/03/2020 12:00:00 AM EDT Former Smoker completed Former Smoker eCW1 ([facility]) Smoking 09/03/2020 12:00:00 AM EDT Former Smoker completed Former Smoker eCW1 ([facility]) Smoking 09/03/2020 12:00:00 AM EDT Former Smoker completed Former Smoker eCW1 ([facility]) Smoking 09/03/2020 12:00:00 AM EDT Former Smoker completed Former Smoker eCW1 ([facility]) Smoking 09/03/2020 12:00:00 AM EDT Former Smoker completed Former Smoker eCW1 ([facility]) Smoking 09/03/2020 12:00:00 AM EDT Former Smoker completed Former Smoker eCW1 ([facility]) Alcohol intake 07/24/2020 12:00:00 AM EST Yes completed [facility] Smoking 07/24/2020 12:00:00 AM EST Former smoker completed Former smoker [facility] Smoking 07/09/2020 12:00:00 AM EST Former Smoker completed Former Smoker eCW1 ([facility]) Smoking 07/09/2020 12:00:00 AM EST Former Smoker completed Former Smoker eCW1 ([facility]) Smoking 07/09/2020 12:00:00 AM EST Former Smoker completed Former Smoker eCW1 ([facility]) Smoking 07/09/2020 12:00:00 AM EST Former Smoker completed Former Smoker eCW1 ([facility]) Smoking 07/09/2020 12:00:00 AM EST Former Smoker completed Former Smoker eCW1 ([facility]) Smoking 07/09/2020 12:00:00 AM EST Former Smoker completed Former Smoker eCW1 ([facility]) Smoking 07/09/2020 12:00:00 AM EST Former Smoker completed Former Smoker eCW1 ([facility]) Smoking 07/09/2020 12:00:00 AM EST Former Smoker completed Former Smoker eCW1 ([facility]) Smoking 07/09/2020 12:00:00 AM EST Former Smoker completed Former Smoker eCW1 ([facility]) Smoking 07/09/2020 12:00:00 AM EST Former Smoker completed Former Smoker eCW1 ([facility]) Smoking 07/02/2020 12:00:00 AM EST Former Smoker completed Former Smoker eCW1 ([facility]) Smoking 07/02/2020 12:00:00 AM EST Former Smoker completed Former Smoker eCW1 ([facility]) Smoking 06/10/2020 12:00:00 AM EST Former Smoker completed Former Smoker eCW1 ([facility]) Smoking 06/10/2020 12:00:00 AM EST Former Smoker completed Former Smoker eCW1 ([facility]) Smoking 06/10/2020 12:00:00 AM EST Former Smoker completed Former Smoker eCW1 ([facility]) Smoking 06/10/2020 12:00:00 AM EST Former Smoker completed Former Smoker eCW1 ([facility]) Smoking 06/10/2020 12:00:00 AM EST Former Smoker completed Former Smoker eCW1 ([facility]) Smoking 06/10/2020 12:00:00 AM EST Former Smoker completed Former Smoker eCW1 ([facility]) Smoking 05/28/2020 12:00:00 AM EST Former Smoker completed Former Smoker eCW1 ([facility]) Smoking 05/28/2020 12:00:00 AM EST Former Smoker completed Former Smoker eCW1 ([facility]) Smoking 05/27/2020 12:00:00 AM EST Former Smoker completed Former Smoker eCW1 ([facility]) Smoking 04/29/2020 12:00:00 AM EST Former Smoker completed Former Smoker eCW1 ([facility]) Smoking 04/29/2020 12:00:00 AM EST Former Smoker completed Former Smoker eCW1 ([facility]) Alcohol intake 04/25/2020 12:00:00 AM EST Yes completed [facility] Smoking 04/25/2020 12:00:00 AM EST Former smoker completed Former smoker [facility] Smoking 03/18/2020 12:00:00 AM EST Former Smoker completed Former Smoker eCW1 ([facility]) Smoking 03/18/2020 12:00:00 AM EST Former Smoker completed Former Smoker eCW1 ([facility]) Smoking 03/18/2020 12:00:00 AM EST Former Smoker completed Former Smoker eCW1 ([facility]) Smoking 03/18/2020 12:00:00 AM EST Former Smoker completed Former Smoker eCW1 ([facility]) Smoking 03/18/2020 12:00:00 AM EST Former Smoker completed Former Smoker eCW1 ([facility]) Smoking 03/04/2020 12:00:00 AM EDT Former Smoker completed Former Smoker eCW1 ([facility]) Smoking 03/04/2020 12:00:00 AM EDT Former Smoker completed Former Smoker eCW1 ([facility]) Smoking 03/04/2020 12:00:00 AM EDT Former Smoker completed Former Smoker eCW1 ([facility]) Vital Signs ID Date Data Source UNK Name Value Range Interpretation Code Description Data Source(s) Body weight 348.6 [lb_av] 348.6 [lb_av] eCW1 ([facility]) Body weight 158.12 kg 158.12 kg W1 (Formerly [facility]) Body height 70 [in_i] 70 [in_i] eCW1 (Formerly [facility]) Body mass index (BMI) [Ratio] 50.01 kg/m2 50.01 kg/m2 W1 ([facility]) Heart rate 78 /min 78 /min eCW1 ([facility]) Respiratory rate 18 /min 18 /min eCW1 (Formerly [facility]) Body temperature 97.1 [degF] 97.1 [degF] eCW1 ( [facility]) Systolic blood pressure 138 mm[Hg] 138 mm[Hg] e CW1 ([facility]) Diastolic blood pressure 70 mm[Hg] 70 mm[Hg] eCW1 ([facility]) Body weight 341.00 [lb_av] 341.00 [lb_av] MEDEN T ([facility]) Body mass index (BMI) [Ratio] 51.8 kg/m2 51.8 k g/m2 MEDENT ([facility]) Oxygen saturation in Arterial blood by Pulse oximetry 94 % 94 % MEDENT ([facility]) Systolic blood pressure 116 mm[Hg] 116 mm[Hg] M EDENT ([facility]) Diastolic blood pressure 76 mm[Hg] 76 mm[Hg] MEDENT ([facility]) Heart rate 70 /min 70 /min MEDENT ([facility]) Body height 68 [in_i] 68 [in_i] MEDENT ([facility]) 5'8" Body weight 328.2 [lb_av] 328.2 [lb_av] eCW1 ([facility]) Body weight 148.87 kg 148.87 kg eCW1 (Formerly [facility]) Body height 70 [in_i] 70 [in_i] eCW1 ([facility]ly [facility]) Body mass index (BMI) [Ratio] 47.09 kg/m2 47.09 kg/m2 eCW1 ([facility]) Heart rate 82 /min 82 /min eCW1 ([facility]) Respiratory rate 18 /min 18 /min eCW1 ([facility]) Body temperature 97.4 [degF] 97.4 [degF] eCW1 ( [facility]) Systolic blood pressure 132 mm[Hg] 132 mm[Hg] e CW1 ([facility]) Diastolic blood pressure 82 mm[Hg] 82 mm[Hg] eCW1 ([facility]) Systolic blood pressure 120 mm[Hg] 120 mm[Hg] [facility] Diastolic blood pressure 66 mm[Hg] 66 mm[Hg] [facility] Heart rate 71 /min 71 /min [facility] Body height 172.7 cm 172.7 cm [facility] Body weight 150.594 kg 150.594 kg [facility] Body mass index (BMI) [Ratio] 50.48 kg/m2 50.48 kg/m2 [facility] Oxygen saturation in Arterial blood by Pulse oximetry 98 % 98 % [facility] Systolic blood pressure 120 mm[Hg] 120 mm[Hg] M EDENT ([facility], [facility]) Respiratory rate 19 /min 19 /min MEDENT ( [facility], [facility]) Oxygen saturation in Arterial blood by Pulse oximetry 98 % 98 % MEDENT ([facility], [facility]) Body temperature 97.8 [degF] 97.8 [degF] MEDENT ([facility], [facility]) Body weight 325.00 [lb_av] 325.00 [lb_av] MEDEN T ([facility], [facility]) Body height 68 [in_i] 68 [in_i] MEDENT ([facility]) 5'8" Diastolic blood pressure 63 mm[Hg] 63 mm[Hg] MEDENT ([facility], [facility]) Heart rate 78 /min 78 /min MEDENT ([facility], [facility]) Body mass index (BMI) [Ratio] 49.4 kg/m2 49.4 k g/m2 MEDENT ([facility], [facility]) Body weight 330 [lb_av] 330 [lb_av] eCW1 ([facility]) Body height 70 [in_i] 70 [in_i] eCW1 ([facility]ly [facility]) Body mass index (BMI) [Ratio] 47.34 kg/m2 47.34 kg/m2 eCW1 ([facility]) Systolic blood pressure 130 mm[Hg] 130 mm[Hg] e CW1 ([facility]) Diastolic blood pressure 78 mm[Hg] 78 mm[Hg] eCW1 ([facility]) Systolic blood pressure 128 mm[Hg] 128 mm[Hg] M EDENT ([facility] ) Diastolic blood pressure 72 mm[Hg] 72 mm[Hg] MEDENT ([facility] ) Body temperature 97.0 [degF] 97.0 [degF] MEDENT ([facility] ) Body mass index (BMI) [Ratio] 50.2 kg/m2 50.2 k g/m2 MEDENT ([facility] ) Oxygen saturation in Arterial blood by Pulse oximetry 96 % 96 % MEDENT ([facility]) Heart rate 78 /min 78 /min MEDENT ([facility] ) Body height 68 [in_i] 68 [in_i] MEDENT ([facility]) 5'8" Body weight 330.00 [lb_av] 330.00 [lb_av] MEDEN T ([facility]) Systolic blood pressure 126 mm[Hg] 126 mm[Hg] [facility] Diastolic blood pressure 88 mm[Hg] 88 mm[Hg] [facility] Heart rate 64 /min 64 /min [facility] Body height 175.3 cm 175.3 cm [facility] Body weight 145.151 kg 145.151 kg [facility] Body mass index (BMI) [Ratio] 47.26 kg/m2 47.26 kg/m2 [facility] Oxygen saturation in Arterial blood by Pulse oximetry 98 % 98 % [facility] Diastolic blood pressure 72 mm[Hg] 72 mm[Hg] MEDENT ([facility]) Body mass index (BMI) [Ratio] 48.7 kg/m2 48.7 k g/m2 MEDENT ([facility]) Systolic blood pressure 128 mm[Hg] 128 mm[Hg] M EDENT ([facility]) Heart rate 68 /min 68 /min MEDENT ([facility]) Body temperature 97.1 [degF] 97.1 [degF] MEDENT ([facility]) Body height 68 [in_i] 68 [in_i] MEDENT ([facility]) 5'8" Body weight 320.38 [lb_av] 320.38 [lb_av] MEDEN T ([facility]) Oxygen saturation in Arterial blood by Pulse oximetry 99 % 99 % MEDENT ([facility]) Body weight 317 [lb_av] 317 [lb_av] eCW1 ([facility]) Body height 70 [in_i] 70 [in_i] W1 (Formerly [facility]) Body mass index (BMI) [Ratio] 45.48 kg/m2 45.48 kg/m2 [facility] ([facility]) Systolic blood pressure 118 mm[Hg] 118 mm[Hg] e CW1 ([facility]) Diastolic blood pressure 72 mm[Hg] 72 mm[Hg] eCW1 ([facility]) Heart rate 85 /min 85 /min eCW1 ([facility]) Respiratory rate 18 /min 18 /min eCW1 ([facility]ly [facility]) Body temperature 97.0 [degF] 97.0 [degF] eCW1 ( [facility]) Systolic blood pressure 124 mm[Hg] 124 mm[Hg] [facility] Diastolic blood pressure 72 mm[Hg] 72 mm[Hg] [facility] Heart rate 80 /min 80 /min [facility] Body height 175.3 cm 175.3 cm [facility] Body weight 143.337 kg 143.337 kg [facility] Body mass index (BMI) [Ratio] 46.67 kg/m2 46.67 kg/m2 [facility] Oxygen saturation in Arterial blood by Pulse oximetry 93 % 93 % [facility] Systolic blood pressure 110 mm[Hg] 110 mm[Hg] M EDENT ([facility]) Diastolic blood pressure 64 mm[Hg] 64 mm[Hg] MEDENT ([facility]) Heart rate 84 /min 84 /min MEDENT ([facility]) Body temperature 96.4 [degF] 96.4 [degF] MEDENT ([facility]) Body height 68 [in_i] 68 [in_i] MEDENT ([facility]) 5'8" Body weight 320.38 [lb_av] 320.38 [lb_av] MEDEN T ([facility]) Body mass index (BMI) [Ratio] 48.7 kg/m2 48.7 k g/m2 MEDENT ([facility]) Oxygen saturation in Arterial blood by Pulse oximetry 90 % 90 % MEDENT ([facility]) Body weight 323 [lb_av] 323 [lb_av] eCW1 ([facility]) Body height 70 [in_i] 70 [in_i] eCW1 (Formerly [facility]) Body mass index (BMI) [Ratio] 46.34 kg/m2 46.34 kg/m2 eCW1 ([facility]) Heart rate 83 /min 83 /min eCW1 ([facility]) Respiratory rate 18 /min 18 /min eCW1 ([facility]) Body temperature 98.2 [degF] 98.2 [degF] eCW1 ( [facility]) Systolic blood pressure 128 mm[Hg] 128 mm[Hg] e CW1 ([facility]) Diastolic blood pressure 68 mm[Hg] 68 mm[Hg] eCW1 ([facility]) Body weight 322 [lb_av] 322 [lb_av] eCW1 ([facility]) Body height 70 [in_i] 70 [in_i] eCW1 ([facility]ly [facility]) Body mass index (BMI) [Ratio] 46.20 kg/m2 46.20 kg/m2 eCW1 ([facility]) Heart rate 89 /min 89 /min eCW1 ([facility]) Respiratory rate 18 /min 18 /min eCW1 ([facility]) Body temperature 98.1 [degF] 98.1 [degF] eCW1 ( [facility]) Systolic blood pressure 118 mm[Hg] 118 mm[Hg] e CW1 ([facility]) Diastolic blood pressure 64 mm[Hg] 64 mm[Hg] eCW1 ([facility]) Systolic blood pressure 122 mm[Hg] 122 mm[Hg] e CW1 ([facility]) Body temperature 97.2 [degF] 97.2 [degF] eCW1 ( [facility]) Diastolic blood pressure 78 mm[Hg] 78 mm[Hg] eCW1 ([facility]) Body weight 323 [lb_av] 323 [lb_av] eCW1 ([facility]) Body height 70 [in_i] 70 [in_i] eCW1 ([facility]ly [facility]) Body mass index (BMI) [Ratio] 46.34 kg/m2 46.34 kg/m2 eCW1 ([facility]) Heart rate 89 /min 89 /min eCW1 ([facility]) Respiratory rate 18 /min 18 /min eCW1 ([facility]) Body weight 333 [lb_av] 333 [lb_av] eCW1 ([facility]) Body height 70 [in_i] 70 [in_i] eCW1 ([facility]ly [facility]) Body mass index (BMI) [Ratio] 47.78 kg/m2 47.78 kg/m2 eCW1 ([facility]) Heart rate 96 /min 96 /min eCW1 ([facility]) Respiratory rate 18 /min 18 /min eCW1 ([facility]) Body temperature 97.7 [degF] 97.7 [degF] eCW1 ( [facility]) Systolic blood pressure 128 mm[Hg] 128 mm[Hg] e CW1 ([facility]) Diastolic blood pressure 78 mm[Hg] 78 mm[Hg] eCW1 ([facility]) Body weight 333 [lb_av] 333 [lb_av] eCW1 ([facility]) Body height 70 [in_i] 70 [in_i] eCW1 ([facility]) Body mass index (BMI) [Ratio] 47.78 kg/m2 47.78 kg/m2 eCW1 ([facility]) Heart rate 85 /min 85 /min eCW1 ([facility]) Respiratory rate 17 /min 17 /min eCW1 ([facility]) Body temperature 97.5 [degF] 97.5 [degF] eCW1 ( [facility]) Systolic blood pressure 130 mm[Hg] 130 mm[Hg] e CW1 ([facility]) Diastolic blood pressure 70 mm[Hg] 70 mm[Hg] eCW1 ([facility]) Body weight 328 [lb_av] 328 [lb_av] eCW1 ([facility]) Body height 70 [in_i] 70 [in_i] eCW1 ([facility]ly [facility]) Body mass index (BMI) [Ratio] 47.06 kg/m2 47.06 kg/m2 eCW1 ([facility]) Heart rate 78 /min 78 /min eCW1 ([facility]) Respiratory rate 18 /min 18 /min eCW1 ([facility]) Body temperature 98.3 [degF] 98.3 [degF] eCW1 ( [facility]) Systolic blood pressure 122 mm[Hg] 122 mm[Hg] e CW1 ([facility]) Diastolic blood pressure 74 mm[Hg] 74 mm[Hg] eCW1 ([facility]) Heart rate 83 /min 83 /min MEDENT ([facility]) Body temperature 97.0 [degF] 97.0 [degF] MEDENT ([facility]) Body height 68 [in_i] 68 [in_i] MEDENT ([facility]) 5'8" Body weight 332.00 [lb_av] 332.00 [lb_av] MEDEN T ([facility]) Body mass index (BMI) [Ratio] 50.5 kg/m2 50.5 k g/m2 MEDENT ([facility]) Oxygen saturation in Arterial blood by Pulse oximetry 100 % 100 % MEDENT ([facility]) Systolic blood pressure 122 mm[Hg] 122 mm[Hg] M EDENT ([facility]) Diastolic blood pressure 72 mm[Hg] 72 mm[Hg] MEDENT ([facility]) Body weight 334 [lb_av] 334 [lb_av] eCW1 ([facility]) Body height 70 [in_i] 70 [in_i] eCW1 ([facility]ly [facility]) Body mass index (BMI) [Ratio] 47.92 kg/m2 47.92 kg/m2 eCW1 ([facility]) Heart rate 97 /min 97 /min eCW1 ([facility]) Respiratory rate 17 /min 17 /min eCW1 ([facility]) Body temperature 98.0 [degF] 98.0 [degF] eCW1 ( [facility]) Systolic blood pressure 124 mm[Hg] 124 mm[Hg] e CW1 ([facility]) Diastolic blood pressure 82 mm[Hg] 82 mm[Hg] eCW1 ([facility]) Systolic blood pressure 112 mm[Hg] 112 mm[Hg] [facility] Diastolic blood pressure 70 mm[Hg] 70 mm[Hg] [facility] Heart rate 81 /min 81 /min [facility] Body height 175.3 cm 175.3 cm [facility] Body weight 152.862 kg 152.862 kg [facility] Body mass index (BMI) [Ratio] 49.77 kg/m2 49.77 kg/m2 [facility] Oxygen saturation in Arterial blood by Pulse oximetry 98 % 98 % [facility] Body mass index (BMI) [Ratio] 48.92 kg/m2 48.92 kg/m2 eCW1 ([facility]) Heart rate 96 /min 96 /min eCW1 ([facility]) Respiratory rate 19 /min 19 /min eCW1 ([facility]) Body temperature 98.7 [degF] 98.7 [degF] eCW1 ( [facility]) Systolic blood pressure 122 mm[Hg] 122 mm[Hg] e CW1 ([facility]) Diastolic blood pressure 72 mm[Hg] 72 mm[Hg] eCW1 ([facility]) Body weight 341 [lb_av] 341 [lb_av] eCW1 ([facility]) Body height 70 [in_i] 70 [in_i] eCW1 ([facility]) Systolic blood pressure 136 mm[Hg] 136 mm[Hg] M EDENT ([facility] ) Diastolic blood pressure 84 mm[Hg] 84 mm[Hg] MEDENT ([facility] ) Heart rate 86 /min 86 /min MEDENT ([facility] ) Body temperature 97.2 [degF] 97.2 [degF] MEDENT ([facility]) Body height 68 [in_i] 68 [in_i] MEDENT ([facility]) 5'8" Body weight 342.31 [lb_av] 342.31 [lb_av] MEDEN T ([facility] ) Body mass index (BMI) [Ratio] 52.0 kg/m2 52.0 k g/m2 MEDENT ([facility] ) Oxygen saturation in Arterial blood by Pulse oximetry 98 % 98 % MEDENT ([facility] ) Body weight 340 [lb_av] 340 [lb_av] eCW1 ([facility]) Body height 70 [in_i] 70 [in_i] eCW1 ([facility]ly [facility]) Body mass index (BMI) [Ratio] 48.78 kg/m2 48.78 kg/m2 eCW1 ([facility]) Body temperature 97.0 [degF] 97.0 [degF] eCW1 ( [facility]) Systolic blood pressure 122 mm[Hg] 122 mm[Hg] e CW1 ([facility]) Diastolic blood pressure 72 mm[Hg] 72 mm[Hg] eCW1 ([facility]) Respiratory rate 18 /min 18 /min eCW1 ([facility]) Heart rate 98 /min 98 /min eCW1 ([facility]) Patient Treatment Plan of Care Planned Activity Planned Date Details Description Data Source (s) Evan Garay 30G - 01/08/2021 12:00:00 AM EDT eCW1 ([facility]) Warfarin Sodium 5 MG Oral Tablet 01/08/2021 12:00:00 AM EDT eCW1 ([facility]) Warfarin Sodium 7.5 MG Oral Tablet [Jantoven] 12/12/2020 12:00:00 A M EDT [facility] atorvastatin 80 MG Oral Tablet 11/14/2020 12:00:00 AM EDT [facility] Warfarin Sodium 7.5 MG Oral Tablet [Jantoven] 10/24/2020 12:00:00 A M EDT eCW1 ([facility]) Warfarin Sodium 7.5 MG Oral Tablet [Jantoven] 10/24/2020 12:00:00 A M EDT eCW1 ([facility]) Warfarin Sodium 7.5 MG Oral Tablet [Jantoven] 10/24/2020 12:00:00 A M EDT eCW1 ([facility]) Warfarin Sodium 7.5 MG Oral Tablet [Jantoven] 10/24/2020 12:00:00 A M EDT eCW1 ([facility]) Warfarin Sodium 7.5 MG Oral Tablet [Jantoven] 10/24/2020 12:00:00 A M EDT eCW1 ([facility]) Warfarin Sodium 7.5 MG Oral Tablet [Jantoven] 10/24/2020 12:00:00 A M EDT eCW1 ([facility]) Warfarin Sodium 7.5 MG Oral Tablet [Jantoven] 10/24/2020 12:00:00 A M EDT eCW1 ([facility]) Warfarin Sodium 7.5 MG Oral Tablet [Jantoven] 10/24/2020 12:00:00 A M EDT eCW1 ([facility]) Warfarin Sodium 7.5 MG Oral Tablet [Jantoven] 10/24/2020 12:00:00 A M EDT eCW1 ([facility]) Warfarin Sodium 7.5 MG Oral Tablet [Jantoven] 10/24/2020 12:00:00 A M EDT eCW1 ([facility]) Warfarin Sodium 7.5 MG Oral Tablet [Jantoven] 10/24/2020 12:00:00 A M EDT eCW1 ([facility]) Warfarin Sodium 7.5 MG Oral Tablet [Jantoven] 10/24/2020 12:00:00 A M EDT eCW1 ([facility]) Warfarin Sodium 7.5 MG Oral Tablet [Jantoven] 10/24/2020 12:00:00 A M EDT eCW1 ([facility]) Warfarin Sodium 7.5 MG Oral Tablet [Jantoven] 10/24/2020 12:00:00 A M EDT eCW1 ([facility]) Warfarin Sodium 7.5 MG Oral Tablet [Jantoven] 10/24/2020 12:00:00 A M EDT eCW1 ([facility]) Warfarin Sodium 7.5 MG Oral Tablet [Jantoven] 10/24/2020 12:00:00 A M EDT eCW1 ([facility]) 24 HR metoprolol succinate 100 MG Extended Release Ora l Tablet 10/22/2020 12:00:00 AM EDT [facility] Fluticasone Propionate 50 MCG/ACT 09/03/2020 12:00:00 AM EDT eCW1 ([facility]) Fluticasone Propionate 50 MCG/ACT 09/03/2020 12:00:00 AM EDT eCW1 ([facility]) Fluticasone Propionate 50 MCG/ACT 09/03/2020 12:00:00 AM EDT eCW1 ([facility]) Fluticasone Propionate 50 MCG/ACT 09/03/2020 12:00:00 AM EDT eCW1 ([facility]) Fluticasone Propionate 50 MCG/ACT 09/03/2020 12:00:00 AM EDT eCW1 ([facility]) Fluticasone Propionate 50 MCG/ACT 09/03/2020 12:00:00 AM EDT eCW1 ([facility]) Fluticasone Propionate 50 MCG/ACT 09/03/2020 12:00:00 AM EDT eCW1 ([facility]) Fluticasone Propionate 50 MCG/ACT 09/03/2020 12:00:00 AM EDT eCW1 ([facility]) Fluticasone Propionate 50 MCG/ACT 09/03/2020 12:00:00 AM EDT eCW1 ([facility]) Fluticasone Propionate 50 MCG/ACT 09/03/2020 12:00:00 AM EDT eCW1 ([facility]) Fluticasone Propionate 50 MCG/ACT 09/03/2020 12:00:00 AM EDT eCW1 ([facility]) Fluticasone Propionate 50 MCG/ACT 09/03/2020 12:00:00 AM EDT eCW1 ([facility]) Fluticasone Propionate 50 MCG/ACT 09/03/2020 12:00:00 AM EDT eCW1 ([facility]) Fluticasone Propionate 50 MCG/ACT 09/03/2020 12:00:00 AM EDT eCW1 ([facility]) 24 HR metoprolol succinate 100 MG Extended Release Ora l Tablet 07/24/2020 12:00:00 AM EST [facility] 3 ML Insulin Lispro 100 UNT/ML Pen Injector [Humalog] 07/17/2020 12:00:00 AM EST [facility] febuxostat 40 MG Oral Tablet 07/12/2020 12:00:00 AM EST [facility] sitagliptin 25 MG Oral Tablet [Januvia] 06/17/2020 12:00:00 AM EST [facility] Digoxin 0.125 MG Oral Tablet 06/17/2020 12:00:00 AM EST [facility] Prednisone 20 MG Oral Tablet 05/27/2020 12:00:00 AM EST [facility] ([facility]) montelukast 10 MG Oral Tablet 04/25/2020 12:00:00 AM EST [facility] diflorasone diacetate 0.0005 MG/MG Topical Ointment 04/22/20 20 12:00:00 AM EST [facility] ([facility]) diflorasone diacetate 0.0005 MG/MG Topical Ointment 04/22/20 20 12:00:00 AM EST [facility] ([facility]) diflorasone diacetate 0.0005 MG/MG Topical Ointment 04/22/20 20 12:00:00 AM EST eC ([facility]) atorvastatin 40 MG Oral Tablet 03/18/2020 12:00:00 AM EST [facility] potassium chloride SA (K-DUR,KLOR-CON) 20 MEQ tablet 12:00:00 AM EDT [facility] clopidogrel 75 MG Oral Tablet 03/08/2020 12:00:00 AM EDT [facility] atorvastatin 80 MG Oral Tablet 03/08/2020 12:00:00 AM EDT [facility] Metoprolol Tartrate 25 MG Oral Tablet 03/08/2020 12:00:00 AM EDT [facility] Lancets - 03/04/2020 12:00:00 AM EDT e CW1 ([facility]) Lancets - 03/04/2020 12:00:00 AM EDT e CW1 ([facility]) Lancets - 03/04/2020 12:00:00 AM EDT e CW1 ([facility]) Lancets - 03/04/2020 12:00:00 AM EDT e CW1 ([facility]) Lancets - 03/04/2020 12:00:00 AM EDT e CW1 ([facility]) Lancets - 03/04/2020 12:00:00 AM EDT e CW1 ([facility]) Triamcinolone Acetonide 0.001 MG/MG Topical Ointment 12:00:00 AM EDT [facility] Triamcinolone Acetonide 1 MG/ML Topical Cream 09/27/2019 12:00:00 A M EDT [facility] Potassium Chloride 20 MEQ Extended Release Oral Tablet 04/25/2019 12:00:00 AM EST [facility] montelukast 10 MG Oral Tablet 04/24/2019 12:00:00 AM EST [facility] 0.5 ML dulaglutide 3 MG/ML Auto-Injector [Trulicity] 019 12:00:00 AM EDT [facility] Warfarin Sodium 5 MG Oral Tablet [facility] DAILY ABBI (THERAGRAN) per tablet [facility]
[2021-04-15 12:27] LABS: HEMATOCRIT 49.5 % (42.0-52.0); HEMOGLOBIN 16.5 g/dl (13.5-17.5); MEAN CORPUSCULAR HGB CONC 33.3 g/dl (32.0-36.5); MEAN CORPUSCULAR VOLUME 92.9 fl (80.0-96.0); PLATELET COUNT, AUTOMATED 158 10^3/uL (150-450); RED BLOOD COUNT 5.33 10^6/uL (4.30-6.10); WHITE BLOOD COUNT 13.5 10^3/uL (4.0-10.0)
[2021-04-15 13:02] LABS: CALCIUM LEVEL 9.7 MG/DL (8.8-10.2); CREATININE FOR GFR 2.38 MG/DL (0.70-1.30); GLOMERULAR FILTRATION RATE 29.1 (>49); POTASSIUM SERUM 4.4 MEQ/L (3.5-5.1)
[2021-04-15 15:42] LABS: VENOUS BASE EXCESS 4.9 (-2.0-2.0); VENOUS O2 SATURATION 47.4 % (60.0-80.0); VENOUS PARTIAL PRESSURE CO2 55.6 mmHg (38.0-50.0); VENOUS PARTIAL PRESSURE O2 25.2 mmHg (30.0-50.0); VENOUS PH 7.378 UNITS (7.330-7.430); VENOUS STANDARD HCO3 27.3 MEQ/L; VENOUS TOTAL CO2 33.7 MEQ/L (24.0-28.0)
[2021-04-15] MEDS ORDERED: FUROSEMIDE 40MG/4ML VIAL (J1940) IV ONE (16:00)
[2021-04-15 16:02] LABS: ALBUMIN 3.2 GM/DL (3.2-5.2); BILIRUBIN,DIRECT 0.8 MG/DL (0.0-0.2); BILIRUBIN,TOTAL 1.9 MG/DL (0.2-1.0); TOTAL PROTEIN 7.6 GM/DL (6.4-8.2)
[2021-04-15 16:04] LABS: INR 2.4; PROTHROMBIN TIME 26.6 SECONDS (12.7-14.5)
[2021-04-15 16:05] LABS: BASO % 0.2 % (0.0-1.0); EOS # 0.1 10^3/uL (0.0-0.5); EOS % 0.8 % (0.0-3.0); LYMPH # 1.2 10^3/uL (1.5-5.0); LYMPH % 8.8 % (24.0-44.0); MONO # 1.1 10^3/uL (0.0-0.8); MONO % 8.1 % (2.0-8.0); NEUTROPHILS # 11.1 10^3/uL (1.5-8.5); NEUTROPHILS % 81.6 % (36.0-66.0)
[2021-04-15 16:06] LABS: PARTIAL THROMBOPLASTIN TIME 67.5 SECONDS (25.9-37.0)
[2021-04-15 16:13] LABS: RSV AMPLIFICATION NEGATIVE (NEGATIVE)
[2021-04-15 16:14] LABS: CK-MB VALUE MASS < 1.0 NG/ML (<3.6); CPK CREATINE PHOSPHOKINASE 167 U/L (39-308)
[2021-04-15 16:21] LABS: ABG BASE EXCESS 2.7 (-2.0-2.0); ABG HCO3 25.6 MEQ/L (22.0-26.0); ABG O2 SATURATION 96.5 % (95.0-99.0); ABG PARTIAL PRESSURE CO2 34.7 mmHg (35.0-45.0); ABG PARTIAL PRESSURE O2 76.8 mmHg (75.0-100.0); ABG STANDARD HCO3 26.8 MEQ/L (22.0-26.0); ABG TOTAL CO2 26.7 MEQ/L (23.0-31.0); ABG pH (ARTERIAL) 7.486 UNITS (7.350-7.450)
--- NOTE | 2021-04-15 16:48 | REP ---
INDICATION: upper abd pain, elev liver and pancreatic enzymes. COMPARISON: 12/16/2020. TECHNIQUE: Real-time sonographic evaluation of right upper quadrant performed. FINDINGS: Mobile gallstones are again seen in the gallbladder. There is no gallbladder wall thickening.. There is no intrahepatic or extrahepatic biliary dilatation, common bile duct measures 4 mm in maximum diameter. The liver demonstrates homogeneous echotexture with no gross mass. Visualized pancreas is grossly unremarkable, not well seen due to overlying bowel gas. The right kidney demonstrates no hydronephrosis, with a normal size of 12.1 cm in length. There is a cyst of the lateral aspect of the right kidney 2.2 cm in diameter.No free fluid is seen. IMPRESSION: Mobile gallstones again seen in the gallbladder with no evidence of gallbladder wall thickening, free fluid or biliary dilatation. <Electronically signed by Weston Lang > 04/15/21 [id number]
--- NOTE | 2021-04-15 16:59 | REP ---
INDICATION: short of breath. COMPARISON: 12/16/2020 the latest prior also AP TECHNIQUE: AP and lateral views FINDINGS: The technique utilized in obtaining the radiograph has magnified the cardiac silhouette and accentuated the interstitial markings. Once again, there is evidence of cardiomegaly accentuated by technique status quo. There is no significant change in appearance of the lung wheat. No acute patchy parenchymal opacities have developed. The right pleural angle has not been included on the radiograph. The posterior costophrenic sulcus has not been included on the lateral view. IMPRESSION: No definite evidence of acute cardiopulmonary disease. Exam limitations and findings as described above. <Electronically signed by Zack Shipley > 04/15/21 0280
[2021-04-15] MEDS ORDERED: WARFARIN SOD 7.5MG TAB PO SCH (17:00)
[2021-04-15] MEDS ORDERED: MORPHINE 2 MG/ML 1ML VIAL (J2270) IV PRN ×2 (17:45)
[2021-04-15] MEDS ORDERED: ONDANSETRON 4MG/2ML VIAL IV PRN (17:45)
[2021-04-15] MEDS ORDERED: POTA20TA6 PO (18:02)
[2021-04-15] MEDS ORDERED: HOME MED LIST COMPLETE! XX SCH (18:05)
[2021-04-15] MEDS ORDERED: DEXTROSE 50% 50 ML SYRINGE IV PRN (18:45)
[2021-04-15] MEDS ORDERED: GLUCAGON INJ 1MG VIAL SC PRN (18:45)
[2021-04-15] MEDS ORDERED: GLUCOSE 4GM CHEW TABLET PO PRN (18:45)
[2021-04-15] MEDS: NS 1,000 ML IV SCH (18:54)
[2021-04-15] MEDS ORDERED: ALBUTEROL 90 MCG/ACT 8GM HFA INHALER INH PRN (18:55)
--- NOTE | 2021-04-15 19:02 | HPEPDOC ---
[facility] Medical History & Physical Date of Admission Apr 15, 2021 Date of Service: Apr 15, 2021 Attending Physician: Josette Buenrostro MD History and Physical CHIEF COMPLAINT: Abdominal pain HISTORY OF PRESENT ILLNESS: Patient is a 70-year-old male with past medical history of CKD stage 3-4, IGA nephropathy, Hypertension, Hyperlipidemia, DM type 2 complicated by diabetic neuropathy, MENDEL on CPAP nightly, DVT and pulmonary embolism history on Coumadin, Hx of pancreatitis 12/2020 who presented to [facility] emergency room with a chief complaint of increased abdominal pain over the past 48 hours. The patient states his pain started 04/13/2021 with left lower quadrants middle abdominal/periumbilical abdominal pain 89/10 on pain scale, nonradiating, worse with movement. This pain was associated with increased shortness of breath more than normal, cold chills. He denied fevers, nausea, vomiting, diarrhea, dizziness, chest pain, dysuria. The patient states he is also had decreased appetite and decreased p.o. intake. He was admitted 12/2020 to this facility with similar pain and a diagnosis of pancreatitis. Due to increased symptoms described above the patient came to the emergency room for further evaluation. In the emergency room vital signs showed respiratory rate 2024, all others were stable. WBC 13.5, sodium 134, creatinine 2.38 (baseline creatinine 1.62.2), bilirubin 1.9, AST/ALT 71/100, BNP 394, lipase 6462. During his last hospital admission in December of this year his lipase went up as high as 5000 and was believed to be secondary to DPP 4 inhibitors and GLP 1 agonist for his diabetes. GB US: mobile gallstones again seen in the gallbladder with no evidence of gallbladder wall thickening, free fluid or biliary dilatation. CT abdomen pelvis pending. Patient was examined and was found to be uncomfortable likely secondary to pain, he was given morphine. Patient was admitted for further treatment and management of acute pancreatitis. REVIEW OF SYSTEMS: CONSTITUTIONAL: Denies unexplained weight gain or weight loss, loss of appetite, fever, night sweats EYES: Denies eye drainage, eye pain, visual changes, dry/irritated eye EARS, NOSE, MOUTH, THROAT: Denies difficulty hearing, ringing in ears, mouth sores, loose teeth, sore throat, facial numbness or pain NECK: Denies swollen glands CARDIOVASCULAR: Denies irregular heartbeat, racing heart, chest pains, swelling of feet or legs, pain in legs with walking RESPIRATORY: Denies shortness of breath, night sweats, wheezing, sputum production, oxygen at home, coughing up blood, cough lasting > 1 month GASTROINTESTINAL: Denies constipation, bloody stool, diarrhea, heartburn, nausea, vomiting GENITOURINARY: Denies painful urination, bloody urine, frequent urination, urgency, leaking urine, impotence MUSCULOSKELETAL: Denies joint pain, muscle pain, leg swelling INTEGUMENTARY: Denies rash, itching, new skin lesion, change in existing skin lesion, hair loss or increase, breast changes. 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 father-CAD. SOCIAL HISTORY: Prior smoker 5-10 cigars daily, quit smoking 20 years ago. History of alcohol use. States he drinks 1 can of beer every 3-4 days. Last drink several days ago. Denies illicit drug use. 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 HOME MEDICATIONS: Please see below. PHYSICAL EXAMINATION: VS: Respiratory rate 2024, 84, 98.1, 168/80, 97% on room air CONSTITUTIONAL: No acute distress, resting comfortably, AAO x 3. Short of breath with movement and with speaking at times EYES: PERRLA, EOM intact HENT, MOUTH: Normocephalic, atraumatic, moist mucous membranes NECK: SUPPLE, no JVD, no lymphadenopathy, no carotid bruit CV: Regular rate and rhythm, S1S2 normal, no murmurs/rubs/gallops RESPIRATORY: Clear to auscultation bilaterally, no rales/rhonchi/wheezes GI: obese, BS positive in 4 quadrants, distended abd, tender in LLQ across mid abdomen, + guarding, no organomegaly : Deferred MUSCULOSKELETAL: Normal ROM. No cyanosis, clubbing, swelling, joint deformity, extremity edema INTEGUMENTARY: Intact, no rashes, no lesions, no erythema NEUROLOGIC: Cranial Nerves II-XII are intact, no focal deficits PSYCHIATRIC: Mood and affect are normal LABORATORY DATA: Please see below IMAGING: CXR: No definite evidence of acute cardiopulmonary disease. Exam limitations and findings as described above. Gallbladder US: Mobile gallstones again seen in the gallbladder with no evidence of gallbladder wall thickening, free fluid or biliary dilatation. ASSESSMENT: 70-year-old male with past medical history of CKD stage 3-4, IGA nephropathy, Hypertension, Hyperlipidemia, DM type 2 complicated by diabetic neuropathy, MENDEL on CPAP nightly, DVT and pulmonary embolism history on Coumadin, Hx of pancreatitis 12/2020 admitted for further treatment and management of acute pancreatitis. PLAN: Acute pancreatitis -Unknown etiology. Prior hospital admission in 12/2020 for pancreatitis thought to be possibly 2/2 to on DPP 4 inhibitors and GLP 1 agonist for his diabetes -Lipid panel ordered -CLD, IVF, pain control -Daily labs CKD stage 4 -Current Cr 2.38 -Baseline creatinine around 1.8 to 2 -If Cr increases further, stop diuretics and other nephrotoxic meds. -Patient will be receiving fluids for acute pancreatitis, careful of fluid status -Daily labs DM type 2 -ISS, FS AC/HS, low sugar CLD and can later transition to consistent carb, hypoglycemic protocol CAD -No chest pain, but has incr SOB -ECG at baseline -Trop neg, BNP minimally elevated at 300 -C/w home cardiac meds Paroxysmal atrial fibrillation -C/w home meds, Warfarin -Check PT/INR daily and adjust -Tele Hx of DVT, pulmonary embolus -C/w warfarin HFpEF -Not currently in exacerbation -CXR above -Echocardiogram 04/2020 demonstrated EF 55 to 60%. Grade 1 diastolic dysfunction -C/w home diuretics, meds History of gout -Hold allopurinol -C/w febuxostat GI px -PPI DVT ppx -On warfarin DISPOSITION: Admitted as acute inpatient. Plan is home when medically improved. Patient lives with his daughter. Vital Signs Vital Signs Date Time Temp Pulse Resp B/P (MAP) Pulse Ox O2 Delivery O2 Flow Rate FiO2 04/15/21 15:36 98.1 84 25 168/80 (109) 97 Room Air Laboratory Data Labs 24H Laboratory Tests 2 04/15/21 11:42: Urine Color STRAW, Urine Appearance CLEAR, Urine pH 8.0, Urine Specific [place] 1.005, Urine Protein NEGATIVE, Urine Glucose (UA) NEGATIVE, Urine Ketones NEGATIVE, Urine Blood 1+H, Urine Nitrite NEGATIVE, Urine Bilirubin NEGATIVE, Urine Urobilinogen 0.2, Urine Leukocyte Esterase NEGATIVE, Urine WBC (Auto) 0, Urine RBC (Auto) 2, Urine Hyaline Casts (Auto) 0, Urine Bacteria (Auto) NEGATIVE, Urine Squamous Epithelial Cells 0, Urine Sperm (Auto) 04/15/21 12:03: Immature Granulocyte % (Auto) 0.5, Neutrophils (%) (Auto) 81.6H, Lymphocytes (%) (Auto) 8.8L, Monocytes (%) (Auto) 8.1H, Eosinophils (%) (Auto) 0.8, Basophils (%) (Auto) 0.2, Neutrophils # (Auto) 11.1H, Lymphocytes # (Auto) 1.2L, Monocytes # (Auto) 1.1H, Eosinophils # (Auto) 0.1, Basophils # (Auto) 0.0, Immature Granulocyte # (Auto) 0.1H, Nucleated Red Blood Cells % (auto) 0.0, Platelet Estimate , Anion Gap 7L, Glomerular Filtration Rate 29.1L, Calcium Level 9.7, Total Bilirubin 1.9H, Direct Bilirubin 0.8H, Aspartate Amino Transf (AST/SGOT) 71H, Alanine Aminotransferase (ALT/SGPT) 100H, Alkaline Phosphatase 196H, WR-Wdi-C-Type Natriuretic Peptide 394H, Total Protein 7.6, Albumin 3.2, Albumin/Globulin Ratio 0.7, Lipase 6462H 04/15/21 15:18: Prothrombin Time 26.6H, Prothromb Time International Ratio 2.40, Activated Partial Thromboplast Time 67.5H, Blood Gas Bicarbonate Standard 27.3, Venous Blood pH 7.378, Venous Blood Partial Pressure CO2 55.6H, Venous Blood Partial Pressure O2 25.2L, Venous Blood Total Carbon Dioxide 33.7H, Venous Blood HCO3 32.0H, Venous Blood Oxygen Saturation 47.4L, Venous Blood Base Excess 4.9H, Tot al Creatine Kinase 167, Creatine Kinase MB < 1.0, Creatine Kinase MB Relative Index 0.60, Coronavirus (COVID-19)(PCR) NEGATIVE, Influenza Type A (RT-PCR) NEGATIVE, Influenza Type B (RT-PCR) NEGATIVE, Respiratory Syncytial Virus (PCR) NEGATIVE 04/15/21 15:33: POC Troponin I (Misc) 0.01 04/15/21 16:12: Blood Gas Bicarbonate Standard 26.8H, Arterial Blood pH 7.486H, Arterial Blood Partial Pressure CO2 34.7L, Arterial Blood Partial Pressure O2 76.8, Arterial Blood Total CO2 26.7, Arterial Blood HCO3 25.6, Arterial Blood Base Excess 2.7H, Arterial Blood Oxygen Saturation 96.5 CBC/BMP Laboratory Tests 04/15/21 12:03 Home Medications Scheduled Amiloride HCl (Amiloride HCl) 5 Mg Tablet, 10 MG PO QHS Aspirin (Aspirin EC) 81 Mg Tablet.dr, 81 MG PO DAILY Atorvastatin Calcium (Atorvastatin Calcium) 80 Mg Tablet, 80 MG PO DAILY Bumetanide (Bumetanide) 1 Mg Tablet, 3 MG PO BID 2ND @ 1600 Calcium Carbonate/Vitamin D3 (Calcium 600-Vit D3 400 Tablet) 1 Tab Tab, 1 TAB PO DAILY Febuxostat (Uloric) 40 Mg Tablet, 40 MG PO DAILY Gabapentin (Gabapentin) 300 Mg Capsule, 300 MG PO TID Insulin Human Lispro (Humalog) 1 Units/0.01 Ml Inj, 1 DOSE SC ACHS PER SLIDING SCALE Insulin Human Regular (Humulin R U-500 Kwikpen) 500 Unit/1 Ml Insuln.pen, 80 UNIT SC BID Isosorbide Mononitrate (Isosorbide Mononitrate ER) 60 Mg Tab.er.24h, 60 MG PO DAILY L.acidoph/L.bulg/B.bif/S.therm (Felicita-Bid Caplet) 1 Each Tablet, 1 TAB PO BID Magnesium Oxide (Magnesium Oxide) 500 Mg Tablet, 1,000 MG PO BID Metolazone (Metolazone) 2.5 Mg Tablet, 2.5 MG PO 3XW MON,WED,FRI Metoprolol Succinate (Metoprolol Succinate) 100 Mg Tab.er.24h, 100 MG PO DAILY Montelukast Sodium (Montelukast Sodium) 10 Mg Tablet, 10 MG PO QHS Multivitamins (Thera M Plus Tablet) 1 Each Tablet, 1 TAB PO DAILY [place]-3/Dha/Epa/Fish Oil (Fish Oil 1,000 mg Softgel) 1 Each Capsule, 2,000 MG PO DAILY Omeprazole (Omeprazole) 40 Mg Capsule.dr, 40 MG PO BID Potassium Chloride (Potassium Chloride) 20 Meq Tab.er.prt, 60 MEQ PO BID Potassium Chloride (Potassium Chloride) 20 Meq Tab.er.prt, 40 MEQ PO 3XW WED/WED/WED AT NOON, TAKES ON SAME DAYS METOLAZONE Warfarin Sodium (Jantoven) 7.5 Mg Tablet, 7.5 MG PO 4XWK MON//WED/ Warfarin Sodium (Jantoven) 5 Mg Tablet, 5 MG PO 3XW SAT/SUN/FRI allopurinoL (allopurinoL) 300 Mg Tablet, 300 MG PO DAILY Scheduled PRN Nitroglycerin (Nitroglycerin) 0.4 Mg Sub, 0.4 MG SL NITRO PRN for CHEST PAIN Allergies Coded Allergies: DANIELA Inhibitors (Verified Allergy, Intermediate, RASH, 05/03/20) spironolactone (Verified Adverse Reaction, Intermediate, gynecomastia, 05/03/20) A-FIB/CHADSVASC A-FIB History Current/History of A-Fib/PAF?: Yes Current PO Anticoag Therapy: Yes Age/Risk Factor Scoring CHADSVASC: CHADSVASC Response (Comments) Value Age Risk Factor Age 65-74 years old 1 Gender Risk Factor Male 0 Hx of CHF Yes 1 Hx of HTN Yes 1 Hx of Stroke/TIA/or VTE No 0 Hx of Diabetes Yes 1 Hx of Vascular Disease Yes 1 Total 5 Treatment Treatment ordered: Josette Montanez MD Apr 15, 2021 19:02
--- NOTE | 2021-04-15 19:50 | REPVR ---
PROCEDURE INFORMATION: Exam: CT Abdomen And Pelvis Without Contrast Exam date and time: 04/15/2021 6:22 PM Age: 70 years old Clinical indication: Abdominal pain TECHNIQUE: Imaging protocol: Computed tomography of the abdomen and pelvis without contrast. Radiation optimization: All CT scans at this facility use at least one of these dose optimization techniques: automated exposure control; mA and/or kV adjustment per patient size (includes targeted exams where dose is matched to clinical indication); or iterative reconstruction. COMPARISON: CT ABD PELVIS W/O CONTRAST 12/16/2020 3:37 PM FINDINGS: Lungs: 3 mm right middle lobe pulmonary nodule. Liver: Normal. No mass. Gallbladder and bile ducts: Suspect cholelithiasis. Pancreas: There are peripancreatic inflammatory changes. No definite drainable fluid collection within constraints of this noncontrast examination. Spleen: Normal. No splenomegaly. Adrenal glands: Normal. No mass. Kidneys and ureters: Bilateral renal cysts measure up to 6.3 cm on the left. No hydronephrosis or hydroureter. Stomach and bowel: Diverticulosis without diverticulitis. Colonic fluid without associated thickening or inflammatory change. Appendix: Normal appendix. Intraperitoneal space: Unremarkable. No free air. No significant fluid collection. Vasculature: Vascular calcification. Lymph nodes: Unremarkable. No enlarged lymph nodes. Urinary bladder: Unremarkable as visualized. Reproductive: Unremarkable as visualized. Bones/joints: There are degenerative changes involving the spine. Soft tissues: Unremarkable. IMPRESSION: 1. Findings compatible with acute pancreatitis. 2. No drainable fluid collection within the constraints of this noncontrast examination. 3. 3 mm right middle lobe pulmonary nodule. For patients at low risk (minimal or absent history of smoking and of other known risk factors), no routine follow-up is indicated. For patients at high risk (history of smoking or of other known risk factors), consider optional CT Chest at 12 months. (Reference: Iveth) COMMENTS: Consistent with the [employer]'s Incidental Findings Committee white paper (J Am Klaudia Radiol 2018): Any incidental renal lesion less than 1 cm or classified as too small to characterize, or any incidental cystic renal lesion characterized as simple-appearing, is likely benign. No follow-up imaging is recommended for these lesions per consensus recommendations based on imaging criteria. REFERENCES: Iveth Granado, et al. Guidelines for Management of Incidental Pulmonary Nodules Detected on CT Images: From the Fleischner Society 2017. Radiology. 2017;284(1):228-243. Electronically signed by: Rashel Schmidt On 04/15/2021 19:50:02 PM
[2021-04-15 19:55] LABS: CHOLESTEROL RISK RATIO 3.825 (<5)
[2021-04-15] MEDS: WARFARIN SOD 7.5MG TAB PO SCH (20:10)
--- NOTE | 2021-04-15 20:31 | ECGEPIP ---
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
[2021-04-15] MEDS ORDERED: aMILoride 5 MG TAB PO SCH (21:00)
[2021-04-15] MEDS ORDERED: LEVEMIR (INSULIN DETEMIR) 1 UNITS/0.01ML SC SCH (21:00)
[2021-04-15] MEDS: MAGNESIUM OXIDE 400MG TAB (MAG-OX) PO SCH (22:02)
[2021-04-15] MEDS: MONTELUKAST 10 MG TAB PO SCH (22:03)
[2021-04-15] MEDS: POTASSIUM CHLORIDE 10MEQ SR TABLET PO SCH (22:03)
[2021-04-15] MEDS: HumaLOG INSULIN (NovoLOG) PER UNIT SC SCH (22:03)
[2021-04-15] MEDS: GABAPENTIN 300 MG CAP PO SCH (22:03)
[2021-04-15] MEDS: OMEPRAZOLE 20 MG CAP PO SCH (22:03)
[2021-04-15 22:44] VITALS: BP 112/76
[2021-04-16] MEDS ORDERED: METOPROLOL TART 12.5 MG PER 1/2 TAB PO ONE (03:15)
[2021-04-16] MEDS ORDERED: METOPROLOL SUCC (TopROL XL) 100MG *XL* TAB PO SCH ×2 (05:45→09:00)
[2021-04-16] MEDS: NS 1,000 ML IV SCH ×2 (05:53→14:08)
[2021-04-16 06:00] VITALS: BP 140/86
[2021-04-16 06:22] LABS: INR 2.54; PROTHROMBIN TIME 27.7 SECONDS (12.7-14.5)
[2021-04-16 06:23] LABS: PARTIAL THROMBOPLASTIN TIME 69.9 SECONDS (25.9-37.0)
[2021-04-16 06:43] LABS: ALBUMIN 2.7 GM/DL (3.2-5.2); BILIRUBIN,TOTAL 1.5 MG/DL (0.2-1.0); CALCIUM LEVEL 9.2 MG/DL (8.8-10.2); CREATININE FOR GFR 2.45 MG/DL (0.70-1.30); GLOMERULAR FILTRATION RATE 28.1 (>49); MAGNESIUM LEVEL 2.4 MG/DL (1.8-2.4); TOTAL PROTEIN 7.6 GM/DL (6.4-8.2)
--- NOTE | 2021-04-16 08:54 | ECGEPIP ---
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
[2021-04-16] MEDS ORDERED: BUMETANIDE 1 MG TAB PO SCH (09:00)
[2021-04-16 09:05] LABS: HEMATOCRIT 49.5 % (42.0-52.0); HEMOGLOBIN 16.1 g/dl (13.5-17.5); MEAN CORPUSCULAR HEMOGLOBIN 30.3 pg (27.0-33.0); MEAN CORPUSCULAR HGB CONC 32.5 g/dl (32.0-36.5); MEAN CORPUSCULAR VOLUME 93.2 fl (80.0-96.0); PLATELET COUNT, AUTOMATED 140 10^3/uL (150-450); RED BLOOD COUNT 5.31 10^6/uL (4.30-6.10); WHITE BLOOD COUNT 11.5 10^3/uL (4.0-10.0)
[2021-04-16] MEDS: GABAPENTIN 300 MG CAP PO SCH ×3 (09:33→21:45)
[2021-04-16] MEDS: ISOSORBIDE MON. (IMDUR) 60 MG XR TAB PO SCH (09:33)
[2021-04-16] MEDS: FEBUXOSTAT 40 MG TABLET (ULORIC) PO SCH (09:34)
[2021-04-16] MEDS: LACTOBACILLUS ACIDOPHILUS CAP (BACID) PO SCH ×2 (09:34→17:35)
[2021-04-16] MEDS: ATORVASTATIN 20 MG TAB PO SCH (09:34)
[2021-04-16] MEDS: MULTIVITAMINS/MINERALS THERAP 1 TAB PO SCH (09:34)
[2021-04-16] MEDS: ASPIRIN 81MG ENTERIC TABLET PO SCH (09:34)
[2021-04-16] MEDS: OMEPRAZOLE 20 MG CAP PO SCH ×2 (09:34→21:46)
[2021-04-16] MEDS: POTASSIUM CHLORIDE 10MEQ SR TABLET PO SCH (09:35)
[2021-04-16] MEDS: MAGNESIUM OXIDE 400MG TAB (MAG-OX) PO SCH ×2 (09:35→21:46)
[2021-04-16] MEDS: HumaLOG INSULIN (NovoLOG) PER UNIT SC SCH ×4 (09:36→21:00)
[2021-04-16] MEDS ORDERED: PILL CUTTER 1 EACH XX PRN (11:05)
[2021-04-16] MEDS ORDERED: metOLazone 2.5 MG TAB PO SCH (12:00)
[2021-04-16] MEDS ORDERED: POTASSIUM CHLORIDE 10MEQ SR TABLET PO SCH (12:00)
[2021-04-16 12:23] LABS: CK-MB VALUE MASS < 1.0 NG/ML (<3.6); CPK CREATINE PHOSPHOKINASE 196 U/L (39-308); MB/CK RELATIVE INDEX 0.51 (< OR =4)
[2021-04-16] MEDS: METOPROLOL TART 25 MG TABLET PO SCH ×3 (12:43→23:35)
[2021-04-16 14:00] VITALS: BP 112/75
--- NOTE | 2021-04-16 16:56 | ECGEPIP ---
[facility] Test Date: 2021-04-16 Pat Name: NEHA SWENSON Department: Room: [place] [address] Gender: Male Corrections Officer: jaquelin : 1950 Requested By: Josette Douglas Order Number: [id number] Reading MD: Nolberto Clay Measurements Intervals Max Rate: 112 P: ND: QRS: 52 QRSD: 90 T: 31 QT: 334 QTc: 455 Interpretive Statements Atrial fibrillation with rapid ventricular response Low voltage QRS Nonspecific ST-T wave abnormalities Similar to tracing done 04-15-21 Electronically Signed on 04-16-2021 16:56:36 EST by Nolberto Clay
--- NOTE | 2021-04-16 17:31 | IPNPDOC ---
Date Seen The patient was seen on 04/16/21. Progress Note SUBJECTIVE: Improved abdominal pain. Episode of chest pain; however, troponin negative. Bilirubin improving. Nephrology to see. Patient denies nausea, vomiting, diarrhea. OBJECTIVE: PHYSICAL EXAMINATION: VS: Please see below CONSTITUTIONAL: No acute distress, resting comfortably, AAO x 3. EYES: PERRLA, EOM intact HENT, MOUTH: Normocephalic, atraumatic, moist mucous membranes NECK: SUPPLE, no JVD, no lymphadenopathy, no carotid bruit CV: Regular rate and rhythm, S1S2 normal, no murmurs/rubs/gallops RESPIRATORY: Clear to auscultation bilaterally, no rales/rhonchi/wheezes GI: obese, BS positive in 4 quadrants, distended abd, still photographer in LLQ across mid abdomen, + guarding, no organomegaly : Deferred MUSCULOSKELETAL: Normal ROM. No cyanosis, clubbing, swelling, joint deformity, extremity edema INTEGUMENTARY: Intact, no rashes, no lesions, no erythema NEUROLOGIC: Cranial Nerves II-XII are intact, no focal deficits PSYCHIATRIC: Mood and affect are normal LABORATORY DATA: Please see below IMAGING: CXR: No definite evidence of acute cardiopulmonary disease. Exam limitations and findings as described above. Gallbladder US: Mobile gallstones again seen in the gallbladder with no evidence of gallbladder wall thickening, free fluid or biliary dilatation. ASSESSMENT: 70-year-old male with past medical history of CKD stage 3-4, IGA nephropathy, Hypertension, Hyperlipidemia, DM type 2 complicated by diabetic neuropathy, MENDEL on CPAP nightly, DVT and pulmonary embolism history on Coumadin, Hx of pancreatitis 12/2020 admitted for further treatment and management of acute pancreatitis. PLAN: Acute pancreatitis 2/2 to unknown etiology -WBC 11, improved bilirubin, AST/ALT, mild improvement of abdominal pain -Prior hospital admission in 12/2020 for pancreatitis thought to be possibly 2/2 to on DPP 4 inhibitors and GLP 1 agonist for his diabetes -Lipid panel unremarkable -Continue with current treatment of CLD, IVF, pain control -Daily labs Paroxysmal atrial fibrillation With RVR -Uncontrolled heart rates over the evening, heart rate 130 this morning -ECG showed A. fib with RVR -Stop Toprol-XL, started metoprolol titrate 37.5 mg every 6 hours with holding parameters. Heart rate much improved -C/w Warfarin -Check PT/INR daily and adjust -Tele MENDEZ on CKD stage 4 -Creatinine increased today to 2.45 -Baseline creatinine around 1.8 to 2 -Stopped diuretics and other nephrotoxic meds. -Patient will be receiving fluids for acute pancreatitis, careful of fluid status -Daily labs -Nephrology consulted, follow-up note DM type 2 -Blood sugar slightly low in the 70s likely secondary to decreased p.o. intake and on clear liquid diet -Stopped p.m. Levemir and a.m. Levemir. -Continue with ISS, FS AC/HS, low sugar CLD and can later transition to c onsistent carb, hypoglycemic protocol CAD with chest pain earlier -Troponin negative, BNP slightly elevated at 814 -No chest pain, but has incr SOB -ECG at baseline -C/w home cardiac meds but holding diuretics Hx of DVT, pulmonary embolus -INR therapeutic, checking daily -C/w warfarin HFpEF -Not currently in exacerbation but BNP slightly elevated in the 800s -CXR above -Echocardiogram 04/2020 demonstrated EF 55 to 60%. Grade 1 diastolic dysfunction -Holding home diuretics -Continue with beta-matthew above -Monitor closely while on IV fluids History of gout -Hold allopurinol -C/w febuxostat GI px -PPI DVT ppx -On warfarin DISPOSITION: Admitted as acute inpatient. Plan is home when medically improved. Patient lives with his daughter. VS, I&O, 24H, [place] Vital Signs/I&O Vital Signs Date Time Temp Pulse Resp B/P (MAP) Pulse Ox O2 Delivery O2 Flow Rate FiO2 04/16/21 14:00 97.6 67 18 112/75 (87) 95 Room Air I&O- Last 24 Hours up to 6 AM 04/16/21 06:00 Intake Total 700 ml Output Total 300 ml Balance 400 ml Laboratory Data 24H LABS Laboratory Tests 2 04/15/21 21:30: POC Troponin I (Misc) 0.03 04/15/21 21:49: Bedside Glucose (Misc Panel) 71L 04/16/21 05:23: Bedside Glucose (Misc Panel) 119H 04/16/21 05:57: Nucleated Red Blood Cells % (auto) 0.0, Prothrombin Time 27.7H, Prothromb Time International Ratio 2.54, Activated Partial Thromboplast Time 69.9H, Anion Gap 11, Glomerular Filtration Rate 28.1L, Calcium Level 9.2, Magnesium Level 2.4, Total Bilirubin 1.5H, Aspartate Amino Transf (AST/SGOT) 42H, Alanine Aminotransferase (ALT/SGPT) 70, Alkaline Phosphatase 164H, SH-Jxl-S-Type Natriuretic Peptide 814H, Total Protein 7.6, Albumin 2.7L, Albumin/Globulin Ratio 0.6 04/16/21 11:02: Total Creatine Kinase 196, Creatine Kinase MB < 1.0, Creatine Kinase MB Relative Index 0.51, Troponin I High Sensitivity 23.0 04/16/21 11:37: Bedside Glucose (Misc Panel) 205H 04/16/21 11:54: Lab Scanned Report Miscellaneous Lab 04/16/21 16:36: Bedside Glucose (Misc Panel) 149H CBC/BMP Laboratory Tests 04/16/21 05:57 Josette Buenrostro MD Apr 16, 2021 17:31
[2021-04-16] MEDS: WARFARIN SOD 7.5MG TAB PO SCH (17:35)
[2021-04-16] MEDS: BUMETANIDE 1 MG TAB PO SCH (21:46)
[2021-04-16] MEDS: MONTELUKAST 10 MG TAB PO SCH (21:46)
[2021-04-16 22:00] VITALS: BP 128/75
[2021-04-17] MEDS: METOPROLOL TART 25 MG TABLET PO SCH ×2 (05:26→12:00)
[2021-04-17 05:28] VITALS: BP 132/75
[2021-04-17 05:57] LABS: HEMATOCRIT 45.4 % (42.0-52.0); HEMOGLOBIN 14.9 g/dl (13.5-17.5); MEAN CORPUSCULAR HEMOGLOBIN 30.5 pg (27.0-33.0); MEAN CORPUSCULAR HGB CONC 32.8 g/dl (32.0-36.5); PLATELET COUNT, AUTOMATED 154 10^3/uL (150-450); RED BLOOD COUNT 4.88 10^6/uL (4.30-6.10); WHITE BLOOD COUNT 9.6 10^3/uL (4.0-10.0)
[2021-04-17 06:05] LABS: INR 3.45
[2021-04-17 06:07] LABS: PARTIAL THROMBOPLASTIN TIME 78.4 SECONDS (25.9-37.0)
[2021-04-17 06:16] LABS: ALBUMIN 2.6 GM/DL (3.2-5.2); CALCIUM LEVEL 8.5 MG/DL (8.8-10.2); CREATININE FOR GFR 2.2 MG/DL (0.70-1.30); GLOMERULAR FILTRATION RATE 31.8 (>49); POTASSIUM SERUM 3.6 MEQ/L (3.5-5.1); TOTAL PROTEIN 6.3 GM/DL (6.4-8.2)
[2021-04-17] MEDS: HumaLOG INSULIN (NovoLOG) PER UNIT SC SCH ×4 (08:32→21:21)
[2021-04-17] MEDS ORDERED: POTASSIUM CHLORIDE 10MEQ SR TABLET PO SCH (09:00)
[2021-04-17] MEDS: MAGNESIUM OXIDE 400MG TAB (MAG-OX) PO SCH ×2 (09:02→21:21)
[2021-04-17] MEDS: MULTIVITAMINS/MINERALS THERAP 1 TAB PO SCH (09:02)
[2021-04-17] MEDS: FEBUXOSTAT 40 MG TABLET (ULORIC) PO SCH (09:02)
[2021-04-17] MEDS: ASPIRIN 81MG ENTERIC TABLET PO SCH (09:02)
[2021-04-17] MEDS: GABAPENTIN 300 MG CAP PO SCH ×3 (09:02→21:19)
[2021-04-17] MEDS: OMEPRAZOLE 20 MG CAP PO SCH ×2 (09:03→21:20)
[2021-04-17] MEDS: LACTOBACILLUS ACIDOPHILUS CAP (BACID) PO SCH ×2 (09:03→17:30)
[2021-04-17] MEDS: ATORVASTATIN 20 MG TAB PO SCH (09:03)
[2021-04-17] MEDS: ISOSORBIDE MON. (IMDUR) 60 MG XR TAB PO SCH (09:03)
[2021-04-17] MEDS: BUMETANIDE 1 MG TAB PO SCH ×2 (09:04→17:30)
[2021-04-17] MEDS: aMILoride 5 MG TAB PO SCH ×2 (12:03→21:19)
[2021-04-17] MEDS: POTASSIUM CHLORIDE 10MEQ SR TABLET PO SCH ×2 (12:04→21:20)
--- NOTE | 2021-04-17 12:58 | IPN ---
PROGRESS NOTE DATE: 04/17/2021 SUBJECTIVE: Mr. Galindo is seen and examined this morning at the bedside. He tells me he feels better. The abdominal pain has lessened and his shortness of breath is better as well. He offers no complaints. OBJECTIVE: VITAL SIGNS: Temperature is 97.6, pulse is 65, respiratory rate 20, blood pressure is 132/75. Patient was on room air at the time of my visit, saturating well. GENERAL: Patient is seen awake, alert and oriented x3, comfortable in no distress. HEENT: Extraocular muscles are intact. Tongue is moist. Jugular veins are not elevated. HEART: Heart sounds are regular. S1 and S2. No murmur. There is chronic 1+ edema in the lower extremities which is unchanged from prior. LUNGS: Clear to auscultation. No crackle, rale or rhonchus. He is comfortable on room air. ABDOMEN: Soft, obese and nontender. EXTREMITIES: There is chronic 1+ edema in the legs distal to the knees. There is no cyanosis. NEUROLOGIC: Oriented x3. No focal deficit. PSYCHIATRIC: Appropriate mood and affect. LABORATORY DATA: White count is 9.6, hemoglobin 14.9, platelets are 154,000, sodium is 138, potassium 3.6, bicarbonate 28, BUN 49, creatinine 2.2. Albumin 2.6, INR 3.4. INPATIENT MEDICATIONS: I restarted the patient on his diuretic yesterday evening. He is now on Bumex 3 mg p.o. b.i.d. and this morning Amiloride 5 mg p.o. b.i.d. is also ordered. PROBLEMS: 1. MENDEZ superimposed on CKD Stage IIIB. Patient has a baseline creatinine of 1.8 to 2.0. He had an acute kidney injury in the setting of acute pancreatitis and poor oral intake. He initially received IV fluids and then his home diuretic regimen was subsequently partially resumed. His volume status is stable, his renal function is improving and at this point he is on Bumetanide and amiloride. The only home diuretic that has not yet been restarted is Metolazone. 2. Chronic diastolic congestive heart failure. Volume status is acceptable. IV fluids were stopped yesterday. Patient is on a clear liquid diet. His home Bumetanide was resumed yesterday and amiloride is being resumed today and I would plan to resume metolazone tomorrow. 3. Hypokalemia, amiloride and potassium are both reordered today. 4. Supratherapeutic. INR is 3.4. Coumadin dosing is as per primary team. 5. Acute pancreatitis. Patient is symptomatically improving. I ordered a repeat lipase level. Pain management and advancing of his diet is as per primary team.
--- NOTE | 2021-04-17 12:58 | CR ---
CONSULTATION DATE: 04/16/2021 REQUESTING PHYSICIAN: Dr. Josette Buenrostro REASON FOR CONSULTATION: Acute kidney injury (MENDEZ) on chronic kidney disease (CKD), stage IIIB, in this patient with chronic diastolic congestive heart failure and currently admitted with acute pancreatitis. HISTORY OF PRESENT ILLNESS: Mr. Myriam Galindo is previously known to me. He is a 70-year-old male with a past medical history of CKD, stage IIIB, with a baseline creatinine of around 1.8-2.0. Also past medical history of diastolic congestive heart failure, type 2 diabetes mellitus, IgA nephropathy, coronary atherosclerosis, hypertension with hypertensive heart disease, gout, obesity, obstructive sleep apnea, history of pulmonary embolism, and multiple other comorbid conditions mentioned below. Patient has a history of pancreatitis in December of this year as well. He now presented to [facility] on April 15 with complaint of abdominal pain associated with shortness of breath and decreased appetite and decreased oral intake. In the emergency room patient was noted to be hemodynamically stable with mild leukocytosis. Creatinine was 2.3 (up from 1.8 on his last office visit in the nephrology office in January 2021), and he was also found to have elevated liver function tests (LFTs), and lipase was 6400. Patient was admitted for management and treatment of acute pancreatitis. He was started on intravenous (IV) fluids, and his diuretics were held. A nephrology evaluation was requested for help in the management of his volume status. MEDICAL HISTORY: 1. CKD, stage IIIB, baseline creatinine 1.8-2.0. 2. IgA nephropathy. 3. Hypertension with hypertensive heart disease and hypertensive chronic kidney disease. 4. Dyslipidemia. 5. Obesity. 6. type 2 diabetes mellitus. 7. Diabetic neuropathy. 8. Obstructive sleep apnea, on continuous positive airway pressure (CPAP). 9. Gastroesophageal reflux disease (GERD). 10. Deep venous thrombosis (DVT). 11. History of pulmonary embolism. 12. History of pancreatitis. 13. Atrial fibrillation, on Coumadin. 14. Coronary artery disease. 15. Gout. 16. Esophagitis. 17. Carotid artery stenosis. SURGICAL HISTORY: 1. Cardiac catheterization in 2014 and in 2019. 2. Cataract removal in 2016. FAMILY HISTORY: Significant for coronary artery disease in both of his parents. ALLERGIES: ANGIOTENSIN-CONVERTING ENZYME (DANIELA) INHIBITORS and SPIRONOLACTONE. SOCIAL HISTORY: He is an ex-smoker. Occasionally consumes alcohol. No drug use. He is retired and lives with his daughter. HOME MEDICATIONS: - amiloride 10 mg by mouth every night - aspirin 81 mg by mouth daily - atorvastatin 80 mg by mouth daily - bumetanide 3 mg by mouth twice a day - calcium with vitamin D one daily - Uloric 40 mg daily - gabapentin 300 mg by mouth three times a day - insulin - Imdur 60 mg by mouth daily - Felicita-Bid one tablet twice a day - magnesium oxide 1000 mg by mouth twice a day - metolazone 2.5 mg on Wednesday, Wednesday, Wednesday - metoprolol 100 mg daily - montelukast 10 mg by mouth every night - fish oil two capsules daily - omeprazole 40 mg by mouth twice a day - potassium chloride 60 mEq by mouth twice daily and an additional 40 mEq on Wednesday, Wednesday, Wednesday - Coumadin as directed REVIEW OF SYSTEMS: CONSTITUTIONAL: He reports weight gain. Denies fevers or chills. EYES: Denies visual changes or tearing. ENT: Denies odynophagia, rhinorrhea, epistaxis. CARDIAC: Has a history of hypertensive heart disease, diastolic CHF, and coronary artery disease. Denies chest pain. RESPIRATORY: Has a history of sleep apnea and CPAP use. Reports shortness of breath. GASTROINTESTINAL: Reports abdominal pain. Reports history of pancreatitis. GENITOURINARY: Denies dysuria or hematuria. ENDOCRINE: Reports diabetes and obesity. SKIN: Denies any new rashes or ulcers. NEUROLOGIC: Denies seizures or syncope. PSYCHIATRIC: Denies anxiety or depression. HEMATOLOGIC: Reports chronic anticoagulation use. Remainder of review of systems is negative or as per history of present illness (HPI). VITAL SIGNS: Temperature 99.2, pulse 67, respiratory rate 18, blood pressure 112/75, saturating 95% on room air. Intake and output are reviewed. GENERAL: Patient is seen sitting at the edge of the bed, legs dangling, awake, alert, oriented times three, comfortable in no acute distress. Extraocular muscles are intact. Tongue is moist. Neck is supple. Jugular veins were not elevated while he was sitting upright. HEART: Sounds are regular, S1, S2. There is chronic hard 1+ pitting edema in the legs. LUNGS: Clear to auscultation bilaterally. No crackle, rales, or rhonchus. ABDOMEN: Soft and obese. There is tenderness in the mid abdomen. SKIN: Warm and dry. Normal temperature and turgor. NEUROLOGIC: He is oriented times three. No focal deficit. Moves all extremities on command. PSYCHIATRIC: Appropriate mood and affect. LABORATORY DATA: Sodium 137, potassium 4.0, bicarbonate 28, BUN 47, creatinine 2.4, magnesium 2.4, lipase 6400. Albumin 2.7. Hemoglobin 16.1, white count 11.5. Chest x-ray done yesterday: No acute cardiopulmonary findings. Gallbladder ultrasound done yesterday: Mobile gallstones seen in the gallbladder. No gallbladder wall thickening. No biliary dilatation. CT of the abdomen and pelvis done yesterday, noncontrast: No obstructive uropathy. Bladder is unremarkable. There is peripancreatic inflammatory changes. There are no definite drainable fluid collections. INPATIENT MEDICATIONS: He is currently on: - normal saline at 100 mL an hour - aspirin 81 mg by mouth daily - atorvastatin 80 mg by mouth daily - Uloric 40 mg by mouth daily - gabapentin 300 mg by mouth three times a day - insulin - isosorbide mononitrate 60 mg by mouth daily - Bacid with meal twice daily - magnesium oxide 800 mg by mouth twice a day - metoprolol 37.5 mg by mouth every 6 hours - Singular 10 mg by mouth every night - morphine as needed - multivitamin one daily - omeprazole 40 mg by mouth twice a day - Zofran as needed - potassium chloride 60 mEq by mouth twice a day - Coumadin PROBLEMS: 1. Acute kidney injury superimposed on chronic kidney disease (CKD), stage IIIB. Patient has a baseline creatinine of 1.8-2.0. He was most recently seen in the nephrology office in January 2021. His creatinine was 1.8 on that visit. He is currently admitted with a creatinine of 2.4 in the setting of acute pancreatitis. Patient has received some intravenous (IV) fluid over the course of his admission. I am going to go ahead and stop his IV fluid now given that he is on a clear liquid diet. I will also start him back on some of his home diuretics but certainly not all of them. We will follow him along with you and keep an eye on his volume status, and diuretics will be adjusted as needed. 2. Chronic diastolic congestive heart failure. Patient is fairly well compensated on exam and appears to be at his baseline volume status. He received IV fluids (normal saline) since admission because of acute pancreatitis. His brain natriuretic peptide (BNP) has trended upward. He is not on a clear liquid diet. I am stopping IV fluids, and we will put him back on his home bumetanide. I will continue to hold his home amiloride and his home metolazone. 3. Hypertension with hypertensive heart disease and hypertensive kidney disease. Blood pressures are well controlled, and he continues on his home regimen. His diuretics are only partially restarted. 4. Hypokalemia. Patient takes a significant amount of potassium repletion, and given that he is only being resumed on part of his diuretic, I am going to cut down his potassium supplementation for the time being. 5. Acute pancreatitis, managed as per primary team. Patient is on a clear liquid diet. His lipase was 6400. His LFTs are mildly elevated. CT scan showed peripancreatic inflammatory changes. He recently had admission for acute pancreatitis in December, and his gallbladder ultrasound did show gallstones. 6. History of gout. Home medication list appears to show both allopurinol and Uloric, which is likely an error. Patient should only be on one urate-lowering therapy. Continue Uloric only. No need for allopurinol. Thank you for involving me in the care of Mr. Miguel. I will follow him along with you.
[2021-04-17 14:00] VITALS: BP 144/79
[2021-04-17] MEDS: WARFARIN SOD 7.5MG TAB PO SCH (14:02)
--- NOTE | 2021-04-17 14:15 | IPNPDOC ---
Date Seen The patient was seen on 04/17/21. Progress Note SUBJECTIVE: Improved abdominal pain, starting 2 g/consistent carb diet today. Denies nausea, vomiting, diarrhea. OBJECTIVE: PHYSICAL EXAMINATION: VS: Please see below CONSTITUTIONAL: No acute distress, resting comfortably, AAO x 3. EYES: PERRLA, EOM intact HENT, MOUTH: Normocephalic, atraumatic, moist mucous membranes NECK: SUPPLE, no JVD, no lymphadenopathy, no carotid bruit CV: Regular rate and rhythm, S1S2 normal, no murmurs/rubs/gallops RESPIRATORY: Clear to auscultation bilaterally, no rales/rhonchi/wheezes GI: obese, BS positive in 4 quadrants, distended abd, mild tenderness in LLQmuch improved, no guarding, no organomegaly : Deferred MUSCULOSKELETAL: Normal ROM. No cyanosis, clubbing, swelling, joint deformity, +1 pitting lower extremity edema INTEGUMENTARY: Intact, no rashes, no lesions, no erythema NEUROLOGIC: Cranial Nerves II-XII are intact, no focal deficits PSYCHIATRIC: Mood and affect are normal LABORATORY DATA: Please see below IMAGING: CXR: No definite evidence of acute cardiopulmonary disease. Exam limitations and findings as described above. Gallbladder US: Mobile gallstones again seen in the gallbladder with no evidence of gallbladder wall thickening, free fluid or biliary dilatation. ASSESSMENT: 70-year-old male with past medical history of CKD stage 3-4, IGA nephropathy, Hypertension, Hyperlipidemia, DM type 2 complicated by diabetic neuropathy, MENDEL on CPAP nightly, DVT and pulmonary embolism history on Coumadin, Hx of pancreatitis 12/2020 admitted for further treatment and management of acute pancreatitis. PLAN: Acute pancreatitis 2/2 to unknown etiology- slowly improving -WBC, bilirubin, AST/ALT- all wnl, improvement of abdominal pain -Prior hospital admission in 12/2020 for pancreatitis thought to be possibly 2/2 to on DPP 4 inhibitors and GLP 1 agonist for his diabetes -Lipid panel unremarkable -advancing diet today, taking good PO. pain control -Daily labs Paroxysmal atrial fibrillation, resolved RVR -HR 60-70 -ECG showed A. fib with RVR -Stop Toprol-XL, started metoprolol titrate 37.5 mg, changing to Q8H from Q6H due to HR being lower than wanting every 6 hours with holding parameters. -Holding warfarin today due to supratherapeutic INR, resume when INR within 2-3. -Check PT/INR daily and adjust -Tele Supratherapeutic INR -INR 3.45, no s/s of bleeding -Holding dose of warfarin tonight -Resume when INR 2-3 -Check PT/INR daily MENDEZ on CKD stage 4 -Creatinine improved to 2.20 -Baseline creatinine around 1.8 to 2 -resumed amiloride and bumex by nephrology. Only diuretic not on is metolazone -IVFs stopped -Daily labs -Nephrology consulted and knows him from o/p clinic. F/u recommendations DM type 2 -BS < 200 -Stopped p.m. Levemir and a.m. Levemir due to hypoglycemia on admission. Ant icipate blood sugars will increase now that the patient is started on a diet. Will likely need to start on long-acting based off of blood sugar readings in the a.m. on 04/18/2021 -Continue with ISS, FS AC/HS, consistent carb, hypoglycemic protocol CAD with chest pain, not suspecting ACS -Troponin negative, BNP slightly elevated at 814 -ECG at baseline -C/w home cardiac meds Hx of DVT, pulmonary embolus -INR supratherapeutic, checking daily -Holding warfarin dosing tonight. -Resume warfarin when INR between 23. HFpEF -Not currently in exacerbation but BNP slightly elevated in the 800s -CXR above -Echocardiogram 04/2020 demonstrated EF 55 to 60%. Grade 1 diastolic dysfunction -Resumed Bumex, amiloride, continue with beta-matthew. Holding metolazone History of gout -Hold allopurinol -C/w febuxostat GI px -PPI DVT ppx -Holding warfarin due to supratherapeutic INR. DISPOSITION: Admitted as acute inpatient. Plan is home when medically improved. Patient lives with his daughter. PT ordered. VS, I&O, 24H, Fishbone Vital Signs/I&O Vital Signs Date Time Temp Pulse Resp B/P (MAP) Pulse Ox O2 Delivery O2 Flow Rate FiO2 04/17/21 12:00 67 131/71 04/17/21 05:28 97.6 20 98 NIPPV (BIPAP/CPAP) I&O- Last 24 Hours up to 6 AM 04/17/21 06:00 Intake Total 2300 ml Output Total 550 ml Balance 1750 ml Laboratory Data 24H LABS Laboratory Tests 2 04/16/21 16:36: Bedside Glucose (Misc Panel) 149H 04/16/21 20:22: Bedside Glucose (Misc Panel) 182H 04/17/21 05:26: Nucleated Red Blood Cells % (auto) 0.0, Prothrombin Time 35.0H, Prothromb Time International Ratio 3.45, Activated Partial Thromboplast Time 78.4H, Anion Gap 10, Glomerular Filtration Rate 31.8L, Calcium Level 8.5L, Total Bilirubin 1.0, Aspartate Amino Transf (AST/SGOT) 33, Alanine Aminotransferase (ALT/SGPT) 54, Alkaline Phosphatase 158H, Total Protein 6.3L, Albumin 2.6L, Albumin/Globulin Ratio 0.7 04/17/21 11:31: Bedside Glucose (Misc Panel) 199H CBC/BMP Laboratory Tests 04/17/21 05:26 Josette Buenrostro MD Apr 17, 2021 14:15
[2021-04-17 19:30] VITALS: BP 128/61
[2021-04-17] MEDS: MONTELUKAST 10 MG TAB PO SCH (21:19)
[2021-04-17] MEDS: METOPROLOL TART 12.5 MG PER 1/2 TAB PO SCH (21:20)
[2021-04-17 21:23] VITALS: BP 134/66
[2021-04-18] MEDS: METOPROLOL TART 12.5 MG PER 1/2 TAB PO SCH (05:22)
[2021-04-18 05:23] VITALS: BP 138/68
[2021-04-18 06:09] LABS: HEMATOCRIT 46.6 % (42.0-52.0); HEMOGLOBIN 15.6 g/dl (13.5-17.5); MEAN CORPUSCULAR HEMOGLOBIN 30.6 pg (27.0-33.0); MEAN CORPUSCULAR HGB CONC 33.5 g/dl (32.0-36.5); MEAN CORPUSCULAR VOLUME 91.6 fl (80.0-96.0); PLATELET COUNT, AUTOMATED 153 10^3/uL (150-450); RED BLOOD COUNT 5.09 10^6/uL (4.30-6.10); WHITE BLOOD COUNT 8.1 10^3/uL (4.0-10.0)
[2021-04-18 06:20] LABS: INR 3.56; PROTHROMBIN TIME 35.9 SECONDS (12.7-14.5)
[2021-04-18 06:21] LABS: PARTIAL THROMBOPLASTIN TIME 82.5 SECONDS (25.9-37.0)
[2021-04-18 06:35] LABS: ALBUMIN 2.6 GM/DL (3.2-5.2); BILIRUBIN,TOTAL 0.8 MG/DL (0.2-1.0); CALCIUM LEVEL 9.1 MG/DL (8.8-10.2); CREATININE FOR GFR 2.15 MG/DL (0.70-1.30); GLOMERULAR FILTRATION RATE 32.7 (>49); POTASSIUM SERUM 3.6 MEQ/L (3.5-5.1); TOTAL PROTEIN 7.6 GM/DL (6.4-8.2)
[2021-04-18] MEDS ORDERED: AMIL5TAB4 PO (07:48)
[2021-04-18] MEDS: aMILoride 5 MG TAB PO SCH (08:26)
[2021-04-18] MEDS: GABAPENTIN 300 MG CAP PO SCH (08:26)
[2021-04-18] MEDS: LACTOBACILLUS ACIDOPHILUS CAP (BACID) PO SCH (08:26)
[2021-04-18] MEDS: HumaLOG INSULIN (NovoLOG) PER UNIT SC SCH (08:26)
[2021-04-18] MEDS: FEBUXOSTAT 40 MG TABLET (ULORIC) PO SCH (08:26)
[2021-04-18] MEDS: POTASSIUM CHLORIDE 10MEQ SR TABLET PO SCH (08:27)
[2021-04-18] MEDS: MAGNESIUM OXIDE 400MG TAB (MAG-OX) PO SCH (08:27)
[2021-04-18] MEDS: BUMETANIDE 1 MG TAB PO SCH (08:27)
[2021-04-18 08:28] VITALS: BP 135/83
[2021-04-18] MEDS: MULTIVITAMINS/MINERALS THERAP 1 TAB PO SCH (08:28)
[2021-04-18] MEDS: ASPIRIN 81MG ENTERIC TABLET PO SCH (08:28)
[2021-04-18] MEDS: ATORVASTATIN 20 MG TAB PO SCH (08:28)
[2021-04-18] MEDS: ISOSORBIDE MON. (IMDUR) 60 MG XR TAB PO SCH (08:28)
[2021-04-18] MEDS: OMEPRAZOLE 20 MG CAP PO SCH (08:28)
--- NOTE | 2021-04-18 11:25 | IPNPDOC ---
Subjective Date Seen The patient was seen on 04/18/21. Subjective Chief Complaint/HPI SUBJECTIVE: Patient was seen and examined this morning at the bedside. He did not have any acute complaints and states he continues to feel better. Denies any abdominal pain, shortness of breath, or increased lower extremity edema. He shares that hes apprehensive about the re-occurrence of his pancreatitis and asks for a GI referral. He was informed that he can resume taking his home diuretic regimen. OBJECTIVE: VITAL SIGNS: See below. GENERAL: Patient is seen awake, alert and oriented x3, sitting at bedside, comfortable in no distress. NEUROLOGIC: Oriented x3. No focal deficit. HEENT: Head atraumatic, normocephalic. Extraocular muscles are intact. Oral mucosa moist. No JVD appreciated. HEART: Heart sounds are regular. NS1 and S2. No murmur, gallops or rubs. There is chronic 1+ edema in the lower extremities which is unchanged from prior. LUNGS: Clear to auscultation. No crackle, rale or rhonci. Breathing on RA without acute distress. ABDOMEN: Soft, obese and nontender on palpation. Normal bowel sounds. EXTREMITIES/SKIN: There is chronic 1+ edema in the legs distal to the knees. There is no cyanosis, clubbing, bruising or petechial, or rashes. PSYCHIATRIC: Appropriate mood and affect. IMPRESSION AND PLAN: 1. MENDEZ superimposed on CKD Stage IIIB. Patient has a baseline creatinine of 1.8 to 2.0. He had an acute kidney injury in the setting of acute pancreatitis and poor oral intake. He initially received IV fluids and then his home diuretic regimen was subsequently partially resumed. His volume status has been stable and he has not experienced any increased shortness of breath. His renal function continues to improve and hes currently on Bumetanide and amiloride. The only home diuretic that has not yet been restarted is metolazone. He was informed that he can resume his metolazone next Wednesday and continue with his M, W, F regimen. 2. Heart failure with preserved ejection fraction. No increased shortness of breath from baseline and his volume status is acceptable on exam. Pt was advanced to a 2g Na diet yesterday and was able to tolerate it without any issues. Patient can resume his home diuretic med regimen which includes bumetanide, amiloride and metolazone (to start on Wednesday04/21/21). 3. Hypokalemia. (Resolved). Patients amiloride was started again yesterday and he was given K supplement. 4. Supratherapeutic INR. 3.56. Coumadin dosing is as per primary team. 5. Acute pancreatitis. Patient is symptomatically improving and was able to tolerate advancement of diet without any pain. Have spoken to hospitalist about arranging for a GI referral for outpatient follow up. Nephrology will sign off at this point. Please dont hesitate to call if there are any further questions. VS, I&O, 24H, Fishbone Vital Signs/I&O Vital Signs Date Time Temp Pulse Resp B/P (MAP) Pulse Ox O2 Delivery O2 Flow Rate FiO2 04/18/21 08:28 135/83 04/18/21 05:23 97.9 68 18 94 Room Air I&O- Last 24 Hours up to 6 AM 04/18/21 06:00 Intake Total 1500 ml Balance 1500 ml Laboratory Data 24H LABS Laboratory Tests 2 04/17/21 11:31: Bedside Glucose (Misc Panel) 199H 04/17/21 16:24: Bedside Glucose (Misc Panel) 244H 04/17/21 20:01: Bedside Glucose (Misc Panel) 264H 04/18/21 05:54: Nucleated Red Blood Cells % (auto) 0.0, Prothrombin Time 35.9H, Prothromb Time International Ratio 3.56, Activated Partial Thromboplast Time 82.5H, Anion Gap 10, Glomerular Filtration Rate 32.7L, Calcium Level 9.1, Total Bilirubin 0.8, Aspartate Amino Transf (AST/SGOT) 31, Alanine Aminotransferase (ALT/SGPT) 52, Alkaline Phosphatase 168H, Total Protein 7.6#, Albumin 2.6L, Albumin/Globulin Ratio 0.5, Lipase 704H CBC/BMP Laboratory Tests 04/18/21 05:54 GME ATTESTATION GME ATTESTATION My faculty preceptor for this patient encounter was physically present during the encounter and was fully available. All aspects of the patient interview, examination, medical decision making process, and medical care plan development were reviewed and approved by the faculty preceptor. The faculty preceptor is aware and concurs with the plan as stated in the body of this note and will attest to such by his/her cosignature. Bakari Quintanilla DO Apr 18, 2021 11:25
[2021-04-18] MEDS ORDERED: WARFARIN SOD 5MG TAB PO SCH (17:00)
--- NOTE | 2021-04-18 18:53 | DS.PDOC ---
Discharge Summary General Date of Admission Apr 15, 2021 at 17:42 Date of Discharge 04/18/21 Attending Physician: Josette Buenrostro MD Discharge Summary PROCEDURES PERFORMED DURING STAY: none ADMITTING DIAGNOSES: Acute pancreatitis Paroxysmal atrial fibrillation MENDEZ on CKD stage 4 DM type 2 CAD Hx of DVT, pulmonary embolus HFpEF, not currently in exacerbation History of gout DISCHARGE DIAGNOSES: Acute pancreatitis 2/2 to unknown etiology- slowly improving Paroxysmal atrial fibrillation, resolved RVR Supratherapeutic INR 2/2 to coumadin MENDEZ on CKD stage 4 DM type 2 CAD with chest pain, not suspecting ACS Hx of DVT, pulmonary embolus HFpEF, not currently in exacerbation History of gout COMPLICATIONS/CHIEF COMPLAINT: Acute Pancreatitis HISTORY OF PRESENT ILLNESS: Patient is a 70-year-old male with past medical history of CKD stage 3-4, IGA nephropathy, Hypertension, Hyperlipidemia, DM type 2 complicated by diabetic neuropathy, MENDEL on CPAP nightly, DVT and pulmonary embolism history on Coumadin, Hx of pancreatitis 12/2020 who presented to [facility] emergency room with a chief complaint of increased abdominal pain over the past 48 hours. The patient states his pain started 04/13/2021 with left lower quadrants middle abdominal/periumbilical abdominal pain 89/10 on pain scale, nonradiating, worse with movement. This pain was associated with increased shortness of breath more than normal, cold chills. He denied fevers, nausea, vomiting, diarrhea, dizziness, chest pain, dysuria. The patient states he is also had decreased appetite and decreased p.o. intake. He was admitted 12/2020 to this facility with similar pain and a diagnosis of pancreatitis. Due to increased symptoms described above the patient came to the emergency room for further evaluation. HOSPITAL COURSE: In the emergency room vital signs showed respiratory rate 20-25, all others were stable. WBC 13.5, sodium 134, creatinine 2.38 (baseline creatinine 1.62.2), bilirubin 1.9, AST/ALT 71/100, BNP 394, lipase 6462. During his last hospital admission in December of this year his lipase went up as high as 5000 and was believed to be secondary to DPP 4 inhibitors and GLP 1 agonist for his diabetes. GB US: mobile gallstones again seen in the gallbladder with no evidence of gallbladder wall thickening, free fluid or biliary dilatation. CT abdomen pelvis pending. Patient was examined and was found to be uncomfortable likely secondary to pain, he was given morphine. Patient was admitted for further treatment and management of acute pancreatitis. During this hospitalization, the following issues were treated/addressed: Acute pancreatitis 2/2 to unknown etiology, recurrent -WBC, bilirubin, AST/ALT- all wnl, improvement of abdominal pain, lipase decreased to 700 from > 6K -Prior hospital admission in 12/2020 for pancreatitis thought to be possibly 2/2 to on DPP 4 inhibitors and GLP 1 agonist for his diabetes -Lipid panel unremarkable -tolerating advanced diet, no longer having abdominal pain -Suggesting GI referral by PCP for recurrent pancreatitis Paroxysmal atrial fibrillation, resolved RVR -HR much improved -ECG showed A. fib with RVR -C/w Toprol-XL, holding warfarin at discharge due to supratherapeutic INR, resume when INR within 2-3. -F/u with cardiology o/p Supratherapeutic INR -INR 3.56, no s/s of bleeding -Holding warfarin at discharge, discussed with patient in great detail. Advised patient to check his INR at home on 04/21/21 and follow up with i PCP clinic about your levels and when to resume your coumadin. His PCP, Rodney Mijares was updated. If he should have increased bleeding please he should let a medical professional know as soon as possible. -suggest to resume when INR 2-3 MENDEZ on CKD stage 4 -Creatinine improved to 2.15 -Baseline creatinine around 1.8 to 2 -resumed all home meds at discharge, discussed with nephrology prior to discharge. -F/u with nephrology DM type 2 -BS < 200 -C/w home meds -F/u with PCP CAD with chest pain, not suspecting ACS -Troponin negative, BNP slightly elevated at 814 -ECG at baseline -C/w home cardiac meds Hx of DVT, pulmonary embolus -INR supratherapeutic, checking daily -Holding warfarin -Resume warfarin when INR between 2-3. HFpEF -Not currently in exacerbation but BNP slightly elevated in the 800s -CXR above -Echocardiogram 04/2020 demonstrated EF 55 to 60%. Grade 1 diastolic dysfunction -C/w all home meds History of gout -Hold allopurinol -C/w febuxostat DISCHARGE MEDICATIONS: Please see below. ALLERGIES: Please see below. PHYSICAL EXAMINATION ON DISCHARGE: VS: Please see below CONSTITUTIONAL: No acute distress, resting comfortably, AAO x 3. EYES: PERRLA, EOM intact HENT, MOUTH: Normocephalic, atraumatic, moist mucous membranes NECK: SUPPLE, no JVD, no lymphadenopathy, no carotid bruit CV: Regular rate and rhythm, S1S2 normal, no murmurs/rubs/gallops RESPIRATORY: Clear to auscultation bilaterally, no rales/rhonchi/wheezes GI: obese, BS positive in 4 quadrants, distended abd, no longer tenderness in LLQ, no guarding, no organomegaly : Deferred MUSCULOSKELETAL: Normal ROM. No cyanosis, clubbing, swelling, joint deformity, +1 pitting lower extremity edema INTEGUMENTARY: Intact, no rashes, no lesions, no erythema NEUROLOGIC: Cranial Nerves II-XII are intact, no focal deficits PSYCHIATRIC: Mood and affect are normal LABORATORY DATA: Please see below IMAGING: CXR: No definite evidence of acute cardiopulmonary disease. Exam limitations and findings as described above. Gallbladder US: Mobile gallstones again seen in the gallbladder with no evidence of gallbladder wall thickening, free fluid or biliary dilatation. PROGNOSIS: Good ACTIVITY: As tolerated DIET: 2 gm diet DISPOSITION: Home Health Service. DISCHARGE INSTRUCTIONS / ITEMS TO FOLLOWUP ON ON OUTPATIENT: 1. Follow up with your primary care provider within 1-2 weeks. 2. Please follow up with nephrology as scheduled. 3. It is advised to continue to hold your warfarin after discharge for now- your levels are too high. Please check your INR on 04/21/21 and follow up with your PCP clinic about your levels and when to resume your coumadin. If you should have increased bleeding please let a medical professional know as soon as possible, as it may be from your high coumadin levels. 4. It is recommended you get referred to GI specialist for recurrent pancrea titis. DISCHARGE CONDITION: Stable TIME SPENT ON DISCHARGE: 35 minutes Vital Signs/I&Os Vital Signs Date Time Temp Pulse Resp B/P (MAP) Pulse Ox O2 Delivery O2 Flow Rate FiO2 04/18/21 08:28 135/83 04/18/21 05:23 97.9 68 18 94 Room Air I&O- Last 24 Hours up to 6 AM 04/18/21 06:00 Intake Total 1500 ml Balance 1500 ml Laboratory Data Labs 24H Laboratory Tests 2 04/17/21 20:01: Bedside Glucose (Misc Panel) 264H 04/18/21 05:54: Nucleated Red Blood Cells % (auto) 0.0, Prothrombin Time 35.9H, Prothromb Time International Ratio 3.56, Activated Partial Thromboplast Time 82.5H, Anion Gap 10, Glomerular Filtration Rate 32.7L, Calcium Level 9.1, Total Bilirubin 0.8, Aspartate Amino Transf (AST/SGOT) 31, Alanine Aminotransferase (ALT/SGPT) 52, Alkaline Phosphatase 168H, Total Protein 7.6#, Albumin 2.6L, Albumin/Globulin Ratio 0.5, Lipase 704H CBC/BMP Laboratory Tests 04/18/21 05:54 FSBS Laboratory Tests Test 04/17/21 20:01 Range/Units Bedside Glucose (Misc Panel) 264 80-115 MG/DL Discharge Medications Scheduled Amiloride HCl (Amiloride HCl) 5 Mg Tablet, 10 MG PO QHS, (Reported) Aspirin (Aspirin EC) 81 Mg Tablet.dr, 81 MG PO DAILY, (Reported) Atorvastatin Calcium (Atorvastatin Calcium) 80 Mg Tablet, 80 MG PO DAILY, (Reported) Bumetanide (Bumetanide) 1 Mg Tablet, 3 MG PO BID, (Reported) 2ND @ 1600 Calcium Carbonate/Vitamin D3 (Calcium 600-Vit D3 400 Tablet) 1 Tab Tab, 1 TAB PO DAILY, (Reported) Febuxostat (Uloric) 40 Mg Tablet, 40 MG PO DAILY, (Reported) Gabapentin (Gabapentin) 300 Mg Capsule, 300 MG PO TID, (Reported) Insulin Human Lispro (Humalog) 1 Units/0.01 Ml Inj, 1 DOSE SC ACHS, (Reported) PER SLIDING SCALE Insulin Human Regular (Humulin R U-500 Kwikpen) 500 Unit/1 Ml Insuln.pen, 80 UNIT SC BID, (Reported) Isosorbide Mononitrate (Isosorbide Mononitrate ER) 60 Mg Tab.er.24h, 60 MG PO DAILY, (Reported) L.acidoph/L.bulg/B.bif/S.therm (Felicita-Bid Caplet) 1 Each Tablet, 1 TAB PO BID, (Reported) Magnesium Oxide (Magnesium Oxide) 500 Mg Tablet, 1,000 MG PO BID, (Reported) Metolazone (Metolazone) 2.5 Mg Tablet, 2.5 MG PO 3XW, (Reported) MON,WED,FRI Metoprolol Succinate (Metoprolol Succinate) 100 Mg Tab.er.24h, 100 MG PO DAILY, (Reported) Montelukast Sodium (Montelukast Sodium) 10 Mg Tablet, 10 MG PO QHS, (Reported) Multivitamins (Thera M Plus Tablet) 1 Each Tablet, 1 TAB PO DAILY, (Reported) [place]-3/Dha/Epa/Fish Oil (Fish Oil 1,000 mg Softgel) 1 Each Capsule, 2,000 MG PO DAILY, (Reported) Omeprazole (Omeprazole) 40 Mg Capsule.dr, 40 MG PO BID, (Reported) Potassium Chloride (Potassium Chloride) 20 Meq Tab.er.prt, 60 MEQ PO BID, (Reported) Potassium Chloride (Potassium Chloride) 20 Meq Tab.er.prt, 40 MEQ PO 3XW, (Reported) WED/WED/WED AT NOON, TAKES ON SAME DAYS METOLAZONE allopurinoL (allopurinoL) 300 Mg Tablet, 300 MG PO DAILY, (Reported) Scheduled PRN Nitroglycerin (Nitroglycerin) 0.4 Mg Sub, 0.4 MG SL NITRO PRN for CHEST PAIN, (Reported) Allergies Coded Allergies: DANIELA Inhibitors (Verified Allergy, Intermediate, RASH, 05/03/20) spironolactone (Verified Adverse Reaction, Intermediate, gynecomastia, 05/03/20) Josette Buenrostro MD Apr 18, 2021 18:53
== END 2021-04-18 11:49 | disposition home health service (06) | DRG 439 ==
LOC: M ED 10:47 → M ED INP 17:42 → UNDOADMOB 17:42 → OBSVTOIN 17:42 → ENRESERV 21:54 → M MSPAV 22:43
PROVIDERS: ADMIT Internal Medicine; ATTEND Internal Medicine
DX: K85.90 Acute pancreatitis without necrosis or infection, unspecified (principal); N18.4 Chronic kidney disease, stage 4 (severe); N02.8 Recurrent and persistent hematuria with other morphologic changes; I50.32 Chronic diastolic (congestive) heart failure; I13.0 Hypertensive heart and chronic kidney disease with heart failure and stage 1 through stage 4 chronic kidney disease, or unspecified chronic kidney disease; N17.9 Acute kidney failure, unspecified; D68.8 Other specified coagulation defects; E11.22 Type 2 diabetes mellitus with diabetic chronic kidney disease; E11.42 Type 2 diabetes mellitus with diabetic polyneuropathy; E78.5 Hyperlipidemia, unspecified; G47.33 Obstructive sleep apnea (adult) (pediatric); Z86.711 Personal history of pulmonary embolism; Z86.718 Personal history of other venous thrombosis and embolism; K80.20 Calculus of gallbladder without cholecystitis without obstruction; K21.9 Gastro-esophageal reflux disease without esophagitis; I48.0 Paroxysmal atrial fibrillation; Z98.41 Cataract extraction status, right eye; Z87.891 Personal history of nicotine dependence; I25.10 Atherosclerotic heart disease of native coronary artery without angina pectoris; M10.9 Gout, unspecified; Z20.822 Contact with and (suspected) exposure to COVID-19; Z79.01 Long term (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 anticoagulants; Z79.82 Long term (current) use of aspirin; Z79.84 Long term (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 oral hypoglycemic drugs; Z79.4 Long term (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 insulin; Z79.899 Other long term (current) drug therapy; Z88.8 Allergy status to other drugs, medicaments and biological substances; Z66 Do not resuscitate; E87.6 Hypokalemia; R07.89 Other chest pain

== ENCOUNTER → 2021-05-23 | Outpatient (REF) | payer MEDICARE, MEDICAID ==
[~2021-05-23] MED LIST changes: -MONT10TA10 PO; +MONT10TA97 PO; +POTA-151 PO; -POTA20TA6 PO
== END ==
LOC: M LAB REF 13:00
PROVIDERS: ATTEND Nurse Practitioner Family
DX: N18.32 Chronic kidney disease, stage 3b (principal)

== ENCOUNTER → 2021-07-02 | Outpatient (REF) | payer MEDICARE, MEDICAID ==
[~2021-07-02] MED LIST changes: -OMEP-221 PO; +OMEP40CA5 PO
== END ==
LOC: M LAB REF 16:58
PROVIDERS: ATTEND Nurse Practitioner Family
DX: E83.42 Hypomagnesemia (principal)

== ENCOUNTER → 2021-07-07 | Outpatient (CLI) | payer MEDICARE, MEDICAID | LOC: M RAD 09:57 | PROVIDERS: ATTEND Nurse Practitioner Family | DX: I65.23 Occlusion and stenosis of bilateral carotid arteries (principal) ==

== ENCOUNTER → 2021-08-14 | Outpatient (RCR) | payer MEDICARE, MEDICAID | LOC: M PT 07-21 13:05 | PROVIDERS: ATTEND Family Medicine | DX: R26.81 Unsteadiness on feet (principal) ==

== ENCOUNTER 2021-09-11 13:14 | Outpatient (RCR) | payer MEDICARE, MEDICAID | END 2021-09-13 | LOC: M PT 13:14 | PROVIDERS: ATTEND Family Medicine | DX: R26.81 Unsteadiness on feet (principal) ==

== ENCOUNTER 2021-09-15 12:27 | Outpatient (RCR) | payer MEDICARE, MEDICAID | END 2021-10-14 | LOC: M PT 12:27 | PROVIDERS: ATTEND Family Medicine | DX: R26.81 Unsteadiness on feet (principal) ==

== ENCOUNTER → 2021-10-22 | Outpatient (CLI) | payer MEDICARE, MEDICAID | LOC: M RAD 11:52 | PROVIDERS: ATTEND Nurse Practitioner Family | DX: I65.23 Occlusion and stenosis of bilateral carotid arteries (principal) ==

== ENCOUNTER 2021-10-27 16:16 | Inpatient (IN) | payer MEDICARE, MEDICAID ==
[~2021-10-27] VITALS: Ht 172.7 cm; Wt 154.6 kg
[2021-10-27] MEDS ORDERED: JARD1TAB PO (16:48)
[2021-10-27] MEDS ORDERED: JANT5TAB PO (16:48)
[2021-10-27 17:35] LABS: BASO # 0.1 10^3/uL (0.0-0.2); BASO % 0.6 % (0.0-1.0); EOS # 0.2 10^3/uL (0.0-0.5); EOS % 2.4 % (0.0-3.0); HEMATOCRIT 49.9 % (42.0-52.0); LYMPH # 1.9 10^3/uL (1.5-5.0); LYMPH % 19.8 % (24.0-44.0); MEAN CORPUSCULAR HGB CONC 34.1 g/dl (32.0-36.5); MEAN CORPUSCULAR VOLUME 93.8 fl (80.0-96.0); MONO # 0.9 10^3/uL (0.0-0.8); NEUTROPHILS # 6.6 10^3/uL (1.5-8.5); NEUTROPHILS % 67.9 % (36.0-66.0); PLATELET COUNT, AUTOMATED 185 10^3/uL (150-450); RED BLOOD COUNT 5.32 10^6/uL (4.30-6.10); WHITE BLOOD COUNT 9.7 10^3/uL (4.0-10.0)
[2021-10-27 18:02] LABS: MB/CK RELATIVE INDEX 0.55 (< OR =4)
[2021-10-27 18:09] LABS: ALBUMIN 3.3 GM/DL (3.2-5.2); BILIRUBIN,DIRECT 0.2 MG/DL (0.0-0.2); BILIRUBIN,TOTAL 0.7 MG/DL (0.2-1.0); CALCIUM LEVEL 9.7 MG/DL (8.8-10.2); CREATININE FOR GFR 2.8 MG/DL (0.70-1.30); FREE T4 1.09 NG/DL (0.76-1.46); POTASSIUM SERUM 3.8 MEQ/L (3.5-5.1); THYROID STIMULATING HORMONE 1.26 uIU/ML (0.358-3.740); TOTAL PROTEIN 7.7 GM/DL (6.4-8.2)
[2021-10-27 18:56] LABS: INR 2.55; PROTHROMBIN TIME 27.8 SECONDS (12.7-14.5)
[2021-10-27 18:57] LABS: PARTIAL THROMBOPLASTIN TIME 52.6 SECONDS (25.9-37.0)
[2021-10-27 19:00] LABS: D-DIMER QUANT < 270 ng/ml (<500)
[2021-10-27 19:11] LABS: CK-MB VALUE MASS < 1.0 NG/ML (<3.6); CPK CREATINE PHOSPHOKINASE 139 U/L (39-308); MB/CK RELATIVE INDEX 0.72 (< OR =4)
[2021-10-27] MEDS ORDERED: HOME MED LIST COMPLETE! XX SCH (20:05)
[2021-10-27] MEDS: INSULIN LISPRO (NovoLOG) PER UNIT SC SCH (21:00)
[2021-10-27] MEDS ORDERED: GLUCAGON INJ 1MG VIAL SC PRN (21:05)
[2021-10-27] MEDS ORDERED: ACETAMINOPHEN TAB 650MG DOSE (2X325MG) PO PRN (21:05)
[2021-10-27] MEDS ORDERED: GLUCOSE 4GM CHEW TABLET PO PRN (21:05)
[2021-10-27] MEDS ORDERED: FUROSEMIDE 40MG/4ML VIAL (J1940) IV SCH (21:05)
[2021-10-27] MEDS ORDERED: DEXTROSE 50% 50 ML SYRINGE IV PRN (21:05)
[2021-10-28 01:35] VITALS: BP 148/68
[2021-10-28] MEDS ORDERED: NITROGLYCERIN 0.4 MG SUBL TABLET SL PRN (02:00)
[2021-10-28] MEDS: aMILoride 5 MG TAB PO SCH ×2 (02:00→20:58)
[2021-10-28] MEDS ORDERED: PANTOPRAZOLE 40MG TAB (PROTONIX) PO ONE (03:00)
[2021-10-28 04:00] VITALS: BP 142/63
[2021-10-28 05:31] LABS: INR 2.17; PROTHROMBIN TIME 24.6 SECONDS (12.7-14.5)
[2021-10-28 05:50] LABS: CALCIUM LEVEL 9.7 MG/DL (8.8-10.2); CREATININE FOR GFR 2.76 MG/DL (0.70-1.30); GLOMERULAR FILTRATION RATE 24.4 (>49); MAGNESIUM LEVEL 2.9 MG/DL (1.8-2.4)
[2021-10-28] MEDS ORDERED: POTASSIUM CHLORIDE 10% LIQ 20 MEQ/15 ML UDC PO ONE (08:00)
[2021-10-28 08:06] VITALS: BP 145/65
[2021-10-28] MEDS: DOCUSATE SODIUM 100MG CAPSULE PO SCH ×2 (09:27→20:58)
[2021-10-28] MEDS: ASPIRIN 81MG ENTERIC TABLET PO SCH (09:27)
[2021-10-28] MEDS: FEBUXOSTAT 40 MG TABLET (ULORIC) PO SCH (09:27)
[2021-10-28] MEDS: INSULIN LISPRO (NovoLOG) PER UNIT SC SCH ×4 (09:27→21:00)
[2021-10-28] MEDS: GABAPENTIN 300 MG CAP PO SCH ×3 (09:28→20:58)
[2021-10-28] MEDS: ATORVASTATIN 20 MG TAB PO SCH (09:28)
[2021-10-28] MEDS: allopurinoL 300 MG TAB PO SCH (09:28)
[2021-10-28] MEDS: ISOSORBIDE MON. (IMDUR) 60 MG XR TAB PO SCH (09:28)
[2021-10-28] MEDS: METOPROLOL SUCC (TopROL XL) 100MG *XL* TAB PO SCH (09:29)
[2021-10-28] MEDS ORDERED: POTASSIUM CHLORIDE 10MEQ SR TABLET PO ONE ×2 (10:00→22:00)
[2021-10-28] MEDS: PEN NEEDLE (USE WITH HUMULIN U-500 INSULIN PEN) XX SCH ×2 (11:56→20:59)
[2021-10-28] MEDS: HUMULIN R U-500 KWIKPEN 500UNITS/ML 3ML SYRINGE (J1815 PER 5UNITS) SC SCH ×2 (11:56→20:59)
[2021-10-28] MEDS: BUMETANIDE 1MG/4ML VIAL IV SCH ×2 (13:24→20:58)
[2021-10-28 16:00] VITALS: BP 142/89
[2021-10-28] MEDS: WARFARIN SOD 5MG TAB PO SCH (16:24)
[2021-10-28 20:00] VITALS: BP 132/67
[2021-10-28 20:28] LABS: MAGNESIUM LEVEL 3.2 MG/DL (1.8-2.4); PHOSPHORUS LEVEL 4.2 MG/DL (2.5-4.9)
[2021-10-28 20:42] LABS: CALCIUM LEVEL 9.4 MG/DL (8.8-10.2); CREATININE FOR GFR 2.93 MG/DL (0.70-1.30); GLOMERULAR FILTRATION RATE 22.8 (>49); POTASSIUM SERUM 3.5 MEQ/L (3.5-5.1)
[2021-10-28] MEDS: MONTELUKAST 10 MG TAB PO SCH (20:58)
[2021-10-28 23:45] VITALS: BP 139/79
[2021-10-29] VITALS (7 sets, daily range): BP systolic 118–151; BP diastolic 69–79
[2021-10-29] MEDS: BUMETANIDE 1MG/4ML VIAL IV SCH (03:55)
[2021-10-29 05:26] LABS: HEMATOCRIT 51.7 % (42.0-52.0); HEMOGLOBIN 17.7 g/dl (13.5-17.5); MEAN CORPUSCULAR HEMOGLOBIN 31.9 pg (27.0-33.0); MEAN CORPUSCULAR HGB CONC 34.2 g/dl (32.0-36.5); MEAN CORPUSCULAR VOLUME 93.2 fl (80.0-96.0); PLATELET COUNT, AUTOMATED 174 10^3/uL (150-450); RED BLOOD COUNT 5.55 10^6/uL (4.30-6.10); WHITE BLOOD COUNT 9.7 10^3/uL (4.0-10.0)
[2021-10-29 05:33] LABS: INR 2.04; PROTHROMBIN TIME 23.4 SECONDS (12.7-14.5)
[2021-10-29 05:41] LABS: CALCIUM LEVEL 9.3 MG/DL (8.8-10.2); CREATININE FOR GFR 2.77 MG/DL (0.70-1.30); GLOMERULAR FILTRATION RATE 24.3 (>49); MAGNESIUM LEVEL 2.7 MG/DL (1.8-2.4); PHOSPHORUS LEVEL 4.8 MG/DL (2.5-4.9)
[2021-10-29] MEDS ORDERED: POTASSIUM CHLORIDE 10% LIQ 20 MEQ/15 ML UDC PO ONE (07:00)
[2021-10-29] MEDS: INSULIN LISPRO (NovoLOG) PER UNIT SC SCH ×4 (07:30→21:23)
[2021-10-29] MEDS ORDERED: FUROSEMIDE 40MG/4ML VIAL (J1940) IV SCH ×2 (08:00→12:00)
[2021-10-29] MEDS: PEN NEEDLE (USE WITH HUMULIN U-500 INSULIN PEN) XX SCH (08:12)
[2021-10-29] MEDS: HUMULIN R U-500 KWIKPEN 500UNITS/ML 3ML SYRINGE (J1815 PER 5UNITS) SC SCH (08:12)
[2021-10-29] MEDS: allopurinoL 300 MG TAB PO SCH (08:19)
[2021-10-29] MEDS: FEBUXOSTAT 40 MG TABLET (ULORIC) PO SCH (08:19)
[2021-10-29] MEDS: ISOSORBIDE MON. (IMDUR) 60 MG XR TAB PO SCH (08:20)
[2021-10-29] MEDS: ASPIRIN 81MG ENTERIC TABLET PO SCH (08:20)
[2021-10-29] MEDS: metOLazone 2.5 MG TAB PO SCH (08:20)
[2021-10-29] MEDS: ATORVASTATIN 20 MG TAB PO SCH (08:20)
[2021-10-29] MEDS: GABAPENTIN 300 MG CAP PO SCH ×3 (08:20→21:18)
[2021-10-29] MEDS: METOPROLOL SUCC (TopROL XL) 100MG *XL* TAB PO SCH (08:20)
[2021-10-29] MEDS: DOCUSATE SODIUM 100MG CAPSULE PO SCH ×2 (08:21→21:18)
[2021-10-29] MEDS ORDERED: POTASSIUM CHLORIDE 10MEQ SR TABLET PO ONE (10:00)
[2021-10-29] MEDS: TORSEMIDE 100 MG TAB PO SCH ×2 (12:10→17:21)
[2021-10-29] MEDS: WARFARIN SOD 5MG TAB PO SCH (17:19)
[2021-10-29] MEDS: MONTELUKAST 10 MG TAB PO SCH (21:18)
[2021-10-29] MEDS: aMILoride 5 MG TAB PO SCH (21:18)
[2021-10-29] MEDS: POTASSIUM CHLORIDE 10MEQ SR TABLET PO SCH (21:18)
[2021-10-30 06:00] VITALS: BP 127/66
[2021-10-30 06:40] LABS: HEMATOCRIT 52.9 % (42.0-52.0); HEMOGLOBIN 17.5 g/dl (13.5-17.5); MEAN CORPUSCULAR HEMOGLOBIN 30.8 pg (27.0-33.0); MEAN CORPUSCULAR HGB CONC 33.1 g/dl (32.0-36.5); PLATELET COUNT, AUTOMATED 195 10^3/uL (150-450); RED BLOOD COUNT 5.69 10^6/uL (4.30-6.10); WHITE BLOOD COUNT 9.9 10^3/uL (4.0-10.0)
[2021-10-30 06:54] LABS: CALCIUM LEVEL 10.1 MG/DL (8.8-10.2); CREATININE FOR GFR 3.11 MG/DL (0.70-1.30); GLOMERULAR FILTRATION RATE 21.3 (>49); MAGNESIUM LEVEL 2.7 MG/DL (1.8-2.4); PHOSPHORUS LEVEL 5.2 MG/DL (2.5-4.9); POTASSIUM SERUM 3.4 MEQ/L (3.5-5.1)
[2021-10-30] MEDS ORDERED: HUMULIN R U-500 KWIKPEN 500UNITS/ML 3ML SYRINGE (J1815 PER 5UNITS) SC SCH ×3 (07:30→17:30)
[2021-10-30] MEDS ORDERED: PEN NEEDLE (USE WITH HUMULIN U-500 INSULIN PEN) XX SCH (07:30)
[2021-10-30 07:58] LABS: INR 2.1
[2021-10-30] MEDS ORDERED: POTASSIUM CHLORIDE 10MEQ SR TABLET PO ONE (08:00)
[2021-10-30] MEDS: INSULIN LISPRO (NovoLOG) PER UNIT SC SCH ×4 (08:11→21:19)
[2021-10-30] MEDS: PEN NEEDLE (USE WITH HUMULIN U-500 INSULIN PEN) XX SCH ×2 (08:12→18:21)
[2021-10-30 08:13] VITALS: BP 130/69
[2021-10-30] MEDS: METOPROLOL SUCC (TopROL XL) 100MG *XL* TAB PO SCH (08:13)
[2021-10-30] MEDS: TORSEMIDE 100 MG TAB PO SCH ×2 (08:13→17:57)
[2021-10-30] MEDS: FEBUXOSTAT 40 MG TABLET (ULORIC) PO SCH (08:13)
[2021-10-30] MEDS: GABAPENTIN 300 MG CAP PO SCH ×3 (08:13→20:25)
[2021-10-30] MEDS: ASPIRIN 81MG ENTERIC TABLET PO SCH (08:13)
[2021-10-30] MEDS: allopurinoL 300 MG TAB PO SCH (08:14)
[2021-10-30] MEDS: DOCUSATE SODIUM 100MG CAPSULE PO SCH ×2 (08:14→20:25)
[2021-10-30] MEDS: ATORVASTATIN 20 MG TAB PO SCH (08:14)
[2021-10-30] MEDS: ISOSORBIDE MON. (IMDUR) 60 MG XR TAB PO SCH (08:14)
[2021-10-30] MEDS ORDERED: POTASSIUM CHLORIDE 10MEQ SR TABLET PO SCH (09:00)
[2021-10-30] MEDS: POTASSIUM CHLORIDE 10MEQ SR TABLET PO SCH (09:11)
[2021-10-30] MEDS ORDERED: INSULIN LISPRO (NovoLOG) PER UNIT SC ONE ×3 (12:40→16:20)
[2021-10-30] MEDS ORDERED: TORS100T PO (13:37)
[2021-10-30] MEDS ORDERED: COLA100C5 PO (13:37)
[2021-10-30 14:00] VITALS: BP 122/80
[2021-10-30] MEDS ORDERED: HumuLIN R (REGULAR) INSULIN (NovoLIN R) **100U/ML** PER UNIT SC ONE (14:50)
[2021-10-30 17:57] VITALS: BP 123/82
[2021-10-30] MEDS: aMILoride 5 MG TAB PO SCH (20:25)
[2021-10-30] MEDS: WARFARIN SOD 5MG TAB PO SCH (20:25)
[2021-10-30] MEDS: MONTELUKAST 10 MG TAB PO SCH (20:25)
[2021-10-30 22:00] VITALS: BP 112/70
[2021-10-31 06:00] VITALS: BP 115/71
[2021-10-31 06:21] LABS: HEMATOCRIT 54.6 % (42.0-52.0); MEAN CORPUSCULAR HEMOGLOBIN 31.4 pg (27.0-33.0); MEAN CORPUSCULAR VOLUME 95.3 fl (80.0-96.0); PLATELET COUNT, AUTOMATED 189 10^3/uL (150-450); RED BLOOD COUNT 5.73 10^6/uL (4.30-6.10)
[2021-10-31 06:31] LABS: INR 2.13; PROTHROMBIN TIME 24.2 SECONDS (12.7-14.5)
[2021-10-31 06:37] LABS: CALCIUM LEVEL 10.6 MG/DL (8.8-10.2); CREATININE FOR GFR 3.18 MG/DL (0.70-1.30); GLOMERULAR FILTRATION RATE 20.8 (>49); MAGNESIUM LEVEL 2.8 MG/DL (1.8-2.4); PHOSPHORUS LEVEL 5.8 MG/DL (2.5-4.9); POTASSIUM SERUM 3.3 MEQ/L (3.5-5.1)
[2021-10-31] MEDS ORDERED: HUMULIN R U-500 KWIKPEN 500UNITS/ML 3ML SYRINGE (J1815 PER 5UNITS) SC SCH (07:30)
[2021-10-31] MEDS: INSULIN LISPRO (NovoLOG) PER UNIT SC SCH (08:59)
[2021-10-31] MEDS: METOPROLOL SUCC (TopROL XL) 100MG *XL* TAB PO SCH (09:00)
[2021-10-31] MEDS ORDERED: POTASSIUM CHLORIDE 10MEQ SR TABLET PO SCH (09:00)
[2021-10-31] MEDS: metOLazone 2.5 MG TAB PO SCH (09:00)
[2021-10-31] MEDS: TORSEMIDE 100 MG TAB PO SCH (09:00)
[2021-10-31] MEDS: ISOSORBIDE MON. (IMDUR) 60 MG XR TAB PO SCH (09:00)
[2021-10-31] MEDS: GABAPENTIN 300 MG CAP PO SCH (09:00)
[2021-10-31] MEDS: ASPIRIN 81MG ENTERIC TABLET PO SCH (09:00)
[2021-10-31] MEDS: allopurinoL 300 MG TAB PO SCH (09:00)
[2021-10-31] MEDS: PEN NEEDLE (USE WITH HUMULIN U-500 INSULIN PEN) XX SCH (09:00)
[2021-10-31] MEDS: FEBUXOSTAT 40 MG TABLET (ULORIC) PO SCH (09:00)
[2021-10-31] MEDS: DOCUSATE SODIUM 100MG CAPSULE PO SCH (09:01)
[2021-10-31] MEDS: ATORVASTATIN 20 MG TAB PO SCH (09:01)
== END 2021-10-31 12:41 | disposition home or self-care (01) | DRG 291 ==
LOC: M ED 16:16 → M ED INP 21:03 → ENRESERV 10-28 00:38 → M PCU 10-28 01:40 → M MSPAV 10-29 17:44
PROVIDERS: ADMIT Internal Medicine; ATTEND Internal Medicine
DX: I13.0 Hypertensive heart and chronic kidney disease with heart failure and stage 1 through stage 4 chronic kidney disease, or unspecified chronic kidney disease (principal); I50.43 Acute on chronic combined systolic (congestive) and diastolic (congestive) heart failure; N17.9 Acute kidney failure, unspecified; E66.2 Morbid (severe) obesity with alveolar hypoventilation; Z68.43 Body mass index [BMI] 50.0-59.9, adult; N18.4 Chronic kidney disease, stage 4 (severe); I25.10 Atherosclerotic heart disease of native coronary artery without angina pectoris; E11.22 Type 2 diabetes mellitus with diabetic chronic kidney disease; Z86.711 Personal history of pulmonary embolism; Z79.01 Long term (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 anticoagulants; M10.9 Gout, unspecified; Z79.4 Long term (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 insulin; Z79.899 Other long term (current) drug therapy; Z88.8 Allergy status to other drugs, medicaments and biological substances; Z66 Do not resuscitate; E87.6 Hypokalemia; D64.9 Anemia, unspecified

== ENCOUNTER → 2021-11-05 | Outpatient (CLI) | payer MEDICARE, MEDICAID ==
[~2021-11-05] MED LIST changes: +COLA100C5 PO; +TORS100T PO
[2021-11-05 15:49] LABS: ALBUMIN 3.2 GM/DL (3.2-5.2); CALCIUM LEVEL 9.4 MG/DL (8.8-10.2); CREATININE FOR GFR 2.36 MG/DL (0.70-1.30); GLOMERULAR FILTRATION RATE 29.3 (>49); PHOSPHORUS LEVEL 1.7 MG/DL (2.5-4.9); POTASSIUM SERUM 3.2 MEQ/L (3.5-5.1)
== END ==
LOC: M LAB 14:21
PROVIDERS: ATTEND Nurse Practitioner Family
DX: N17.9 Acute kidney failure, unspecified (principal)

== ENCOUNTER → 2021-11-06 | Outpatient (REF) | payer MEDICARE, MEDICAID | LOC: M SFHCPLAZ 15:10 | PROVIDERS: ATTEND Family Medicine | DX: R74.8 Abnormal levels of other serum enzymes (principal); R06.00 Dyspnea, unspecified; R74.01 Elevation of levels of liver transaminase levels; Z79.01 Long term (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 anticoagulants ==

== ENCOUNTER → 2021-11-11 | Outpatient (CLI) | payer MEDICARE, MEDICAID ==
[2021-11-11 10:08] LABS: ABG BASE EXCESS 5.3 (-2.0-2.0); ABG O2 SATURATION 95.8 % (95.0-99.0); ABG PARTIAL PRESSURE CO2 43.3 mmHg (35.0-45.0); ABG PARTIAL PRESSURE O2 74.8 mmHg (75.0-100.0); ABG STANDARD HCO3 29.1 MEQ/L (22.0-26.0); ABG TOTAL CO2 31.3 MEQ/L (23.0-31.0); ABG pH (ARTERIAL) 7.458 UNITS (7.350-7.450)
[2021-11-11 12:13] LABS: % LABILE ALKALINE PHOSPHATASE 86.5 %; ALBUMIN 3.4 GM/DL (3.2-5.2); BILIRUBIN,DIRECT 0.2 MG/DL (0.0-0.2); BILIRUBIN,TOTAL 0.8 MG/DL (0.2-1.0); TOTAL PROTEIN 7.5 GM/DL (6.4-8.2)
== END ==
LOC: M PLALAB 09:01 → M LAB 09:01
PROVIDERS: ATTEND Student in an Organized Health Care Education/Training Program
DX: R74.8 Abnormal levels of other serum enzymes (principal); Z79.01 Long term (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 anticoagulants; R06.00 Dyspnea, unspecified; R74.01 Elevation of levels of liver transaminase levels

== ENCOUNTER → 2021-12-22 | Outpatient (CLI) | payer MEDICARE, MEDICAID ==
[2021-12-22 20:42] LABS: CALCIUM LEVEL 9.9 MG/DL (8.8-10.2); CREATININE FOR GFR 2.97 MG/DL (0.70-1.30); GLOMERULAR FILTRATION RATE 22.5 (>49); POTASSIUM SERUM 4.5 MEQ/L (3.5-5.1)
[2021-12-23 00:43] LABS: HEMOGLOBIN A1c 8.3 %
== END ==
LOC: M PLALAB 14:42
PROVIDERS: ATTEND Student in an Organized Health Care Education/Training Program
DX: E11.65 Type 2 diabetes mellitus with hyperglycemia (principal); I50.32 Chronic diastolic (congestive) heart failure; R25.1 Tremor, unspecified

== ENCOUNTER → 2022-02-05 | Outpatient (CLI) | payer MEDICARE, MEDICAID ==
[2022-02-05 16:20] LABS: INR 3.07
== END ==
LOC: M PLALAB 13:01
PROVIDERS: ATTEND Student in an Organized Health Care Education/Training Program
DX: Z79.01 Long term (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 anticoagulants (principal)

== ENCOUNTER → 2022-06-26 | Outpatient (CLI) | payer MEDICARE, MEDICAID ==
[~2022-06-26] MED LIST changes: +AUGM125S2 PO; -AUGM12SS PO; +CLOP75TA99 PO; -PLAV1TAB2 PO
[2022-06-26 14:27] LABS: URIC ACID 8.8 MG/DL (3.7-9.2)
[2022-06-26 14:28] LABS: HEMOGLOBIN A1c 7.4 % (4.0-6.0)
[2022-06-26 14:30] LABS: CALCIUM LEVEL 9.5 MG/DL (8.3-10.6); CHOLESTEROL RISK RATIO 3.98 (<5); CREATININE FOR GFR 2.23 MG/DL (0.70-1.30); GLOMERULAR FILTRATION RATE 31.3 (>49); HDL CHOLESTEROL 40.9 MG/DL (>40); LDL CHOLESTEROL 85.3 MG/DL (<100); THYROID STIMULATING HORMONE 1.887 uIU/ML (0.55-4.78)
== END ==
LOC: M PLALAB 10:01
PROVIDERS: ATTEND Student in an Organized Health Care Education/Training Program
DX: E11.65 Type 2 diabetes mellitus with hyperglycemia (principal)

== ENCOUNTER → 2022-06-26 | Outpatient (CLI) | payer MEDICARE, MEDICAID ==
[~2022-06-26] MED LIST changes: +INSU100I6 SC; -LEVE1INJ5 SC
== END ==
LOC: M PLAIMG 10:06
PROVIDERS: ATTEND Nurse Practitioner Family
DX: R06.00 Dyspnea, unspecified (principal); E78.2 Mixed hyperlipidemia; E11.65 Type 2 diabetes mellitus with hyperglycemia

== ENCOUNTER → 2022-06-26 | Outpatient (CLI) | payer MEDICARE, MEDICAID ==
[~2022-06-26] MED LIST changes: -INSU100I6 SC; +LEVE1INJ5 SC
[2022-06-26 14:27] LABS: CHOLESTEROL RISK RATIO 3.98 (<5); HDL CHOLESTEROL 40.9 MG/DL (>40); LDL CHOLESTEROL 85.1 MG/DL (<100)
== END ==
LOC: M PLALAB 10:04
PROVIDERS: ATTEND Nurse Practitioner Family
DX: E78.2 Mixed hyperlipidemia (principal)

== ENCOUNTER 2022-08-25 11:46 | Emergency (ER) | payer MEDICARE, MEDICAID ==
[~2022-08-25] VITALS: Ht 177.8 cm; Wt 156.2 kg
[~2022-08-25 11:46] MED LIST changes: +INSU100I6 SC; -LEVE1INJ5 SC
[2022-08-25 13:08] LABS: BASO # 0.1 10^3/uL (0.0-0.2); BASO % 0.5 % (0.0-1.0); EOS # 0.2 10^3/uL (0.0-0.5); EOS % 2.3 % (0.0-3.0); HEMATOCRIT 47.6 % (42.0-52.0); LYMPH # 1.7 10^3/uL (1.5-5.0); LYMPH % 17.8 % (24.0-44.0); MEAN CORPUSCULAR HEMOGLOBIN 31.6 pg (27.0-33.0); MEAN CORPUSCULAR HGB CONC 33.6 g/dl (32.0-36.5); MEAN CORPUSCULAR VOLUME 93.9 fl (80.0-96.0); MONO # 0.7 10^3/uL (0.0-0.8); NEUTROPHILS # 6.9 10^3/uL (1.5-8.5); PLATELET COUNT, AUTOMATED 179 10^3/uL (150-450); RED BLOOD COUNT 5.07 10^6/uL (4.30-6.10); WHITE BLOOD COUNT 9.5 10^3/uL (4.0-10.0)
[2022-08-25 13:33] LABS: INR 2.26; PROTHROMBIN TIME 25.3 SECONDS (12.5-14.5)
[2022-08-25 13:34] LABS: PARTIAL THROMBOPLASTIN TIME 33.7 SECONDS (24.8-34.2)
[2022-08-25 13:40] LABS: ALBUMIN 3.2 G/DL (3.2-5.2); BILIRUBIN,DIRECT 0.3 MG/DL (<0.4); BILIRUBIN,TOTAL 0.9 MG/DL (0.3-1.2); CREATININE FOR GFR 1.82 MG/DL (0.70-1.30); GLOMERULAR FILTRATION RATE 39.4 (>42); POTASSIUM SERUM 3.7 MMOL/L (3.5-5.1); TOTAL PROTEIN 6.4 G/DL (5.7-8.2)
[2022-08-25] MEDS ORDERED: ISOVUE-370 76% 100ML VIAL As Ordered ONE (14:19)
[2022-08-25] MEDS ORDERED: CEPH500C PO (15:33)
[2022-08-25 15:50] VITALS: BP 134/63
== END 2022-08-25 15:58 | disposition home or self-care (01) ==
LOC: M ED 11:46
DX: L03.115 Cellulitis of right lower limb (principal); R06.02 Shortness of breath; I50.9 Heart failure, unspecified; E11.9 Type 2 diabetes mellitus without complications; I10 Essential (primary) hypertension; Z86.718 Personal history of other venous thrombosis and embolism; Z87.891 Personal history of nicotine dependence; Z79.01 Long term (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 anticoagulants; Z79.4 Long term (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 insulin; Z79.82 Long term (current) use of aspirin; Z79.899 Other long term (current) drug therapy; Z88.8 Allergy status to other drugs, medicaments and biological substances
CPT/HCPCS: 71045; 71275; 80047; 80048; 80076; 83880; 85025; 85610; 85730; 93005; 93041; 93971; 94760; 99285; Q9967

== ENCOUNTER 2022-09-02 12:24 | Day surgery (SDC) | payer MEDICARE, MEDICAID ==
[~2022-09-02] VITALS: Ht 177.8 cm; Wt 155.6 kg
[~2022-09-02 12:24] MED LIST changes: +AMIL25TA PO; +APAP500T10 PO; +BENA25CA4 PO; +CEPH500C PO; +CIPROFLOXACIN 0.3% OPHTH OINTMENT As Ordered ONE; +DOXY100C3 PO; +EZET10TA21 PO; +JANT2.5T PO; +KP F1200 PO; +LIDOCAINE 3.5 % 1ML OPHTH TOPICAL GEL OU ONE; +LIDOCAINE PRES-FREE 2% 10ML AMP As Ordered ONE; +VITA200021 PO
[2022-09-02] MEDS: LIDOCAINE 2% W/EPINEPHRINE 20ML VIAL **PRES FREE As Ordered ONE ×2 (13:20→15:20)
[2022-09-02] MEDS ORDERED: INSULIN LISPRO (NovoLOG) PER UNIT SC PRN (13:40)
[2022-09-02] MEDS ORDERED: fentaNYL 100 MCG/2 ML INJECTION As Ordered ONE (14:33)
[2022-09-02] MEDS ORDERED: MIDAZOLAM INJ 2MG/2ML VIAL As Ordered ONE (14:33)
[2022-09-02] MEDS ORDERED: POVIDONE-IODINE 5% OPHTH PREP SOL 30ML As Ordered ONE ×2 (14:50→15:11)
[2022-09-02] MEDS ORDERED: propofoL 200 MG/20 ML VIAL As Ordered ONE (15:15)
[2022-09-02 16:09] VITALS: BP 124/63
[2022-09-02] MEDS ORDERED: TOBRADEX OPHTH OINT 3.5 GM As Ordered ONE (16:21)
== END 2022-09-02 16:32 | disposition home or self-care (01) ==
LOC: M SDC 12:24
PROVIDERS: ATTEND Ophthalmology
DX: H02.413 Mechanical ptosis of bilateral eyelids (principal); I25.10 Atherosclerotic heart disease of native coronary artery without angina pectoris; I11.9 Hypertensive heart disease without heart failure; I50.9 Heart failure, unspecified; N18.2 Chronic kidney disease, stage 2 (mild); E11.9 Type 2 diabetes mellitus without complications; E78.5 Hyperlipidemia, unspecified; M10.9 Gout, unspecified; K58.8 Other irritable bowel syndrome; K21.9 Gastro-esophageal reflux disease without esophagitis; G47.33 Obstructive sleep apnea (adult) (pediatric); Z86.711 Personal history of pulmonary embolism; Z86.718 Personal history of other venous thrombosis and embolism; Z79.82 Long term (current) use of aspirin; Z79.84 Long term (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 oral hypoglycemic drugs; Z79.899 Other long term (current) drug therapy; Z79.4 Long term (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 insulin; E66.9 Obesity, unspecified; Z87.891 Personal history of nicotine dependence; Z88.8 Allergy status to other drugs, medicaments and biological substances
CPT/HCPCS: 15823; 88302; J2250; J3010

== ENCOUNTER → 2022-10-14 | Outpatient (RCR) | payer MEDICARE, MEDICAID ==
[~2022-10-14] MED LIST changes: -CIPROFLOXACIN 0.3% OPHTH OINTMENT As Ordered ONE; -LIDOCAINE 3.5 % 1ML OPHTH TOPICAL GEL OU ONE; -LIDOCAINE PRES-FREE 2% 10ML AMP As Ordered ONE; +POTA-298 PO; -POTA1TAB14 PO
== END ==
LOC: M PT 12:22
PROVIDERS: ATTEND Nurse Practitioner Family
DX: I89.0 Lymphedema, not elsewhere classified (principal); E66.01 Morbid (severe) obesity due to excess calories

== ENCOUNTER 2022-11-11 12:57 | Outpatient (RCR) | payer MEDICARE, MEDICAID | END 2022-11-13 | LOC: M PT 12:57 | PROVIDERS: ATTEND Nurse Practitioner Family | DX: I89.0 Lymphedema, not elsewhere classified (principal); E66.01 Morbid (severe) obesity due to excess calories ==

== ENCOUNTER → 2023-01-05 | Outpatient (CLI) | payer MEDICARE, MEDICAID ==
[2023-01-05 15:52] LABS: BASO # 0.1 10^3/uL (0.0-0.2); BASO % 0.7 % (0.0-1.0); EOS # 0.2 10^3/uL (0.0-0.5); EOS % 2.5 % (0.0-3.0); HEMATOCRIT 53.5 % (42.0-52.0); LYMPH # 1.9 10^3/uL (1.5-5.0); LYMPH % 21.3 % (24.0-44.0); MEAN CORPUSCULAR HEMOGLOBIN 30.9 pg (27.0-33.0); MEAN CORPUSCULAR HGB CONC 33.1 g/dl (32.0-36.5); MEAN CORPUSCULAR VOLUME 93.5 fl (80.0-96.0); MONO # 0.9 10^3/uL (0.0-0.8); MONO % 9.5 % (2.0-8.0); NEUTROPHILS # 5.9 10^3/uL (1.5-8.5); NEUTROPHILS % 65.7 % (36.0-66.0); PLATELET COUNT, AUTOMATED 185 10^3/uL (150-450); RED BLOOD COUNT 5.72 10^6/uL (4.30-6.10); WHITE BLOOD COUNT 8.9 10^3/uL (4.0-10.0)
[2023-01-05 15:54] LABS: HEMOGLOBIN 17.7 g/dl (13.5-17.5)
[2023-01-05 16:15] LABS: ALBUMIN 3.5 G/DL (3.2-5.2); BILIRUBIN,TOTAL 1.1 MG/DL (0.3-1.2); CALCIUM LEVEL 9.4 MG/DL (8.3-10.6); GLOMERULAR FILTRATION RATE 35.3 (>42); HDL CHOLESTEROL 38.3 MG/DL (>40); LDL CHOLESTEROL 40.3 MG/DL (<100); NON-HDL-C 76.7 MG/DL; POTASSIUM SERUM 4.1 MMOL/L (3.5-5.1); TOTAL PROTEIN 6.9 G/DL (5.7-8.2)
[2023-01-05 16:26] LABS: HEMOGLOBIN A1c 7.2 % (4.0-6.0)
== END ==
LOC: M PLALAB 14:02
PROVIDERS: ATTEND Student in an Organized Health Care Education/Training Program
DX: E11.65 Type 2 diabetes mellitus with hyperglycemia (principal)

== ENCOUNTER → 2023-03-02 | Outpatient (REF) | payer MEDICARE, MEDICAID ==
[~2023-03-02] MED LIST changes: -FEBU40TA2 PO; +FEBU40TA6 PO
[2023-03-02 18:54] LABS: BACTERIA, URINE AUTO NEGATIVE (NEGATIVE); RBC, URINE AUTO 1 /HPF (0-3); SQUAMOUS EPITHELIAL CELL UR AU 0 /HPF (0-6); WBC, URINE AUTO 0 /HPF (0-3)
== END ==
LOC: M LAB REF 17:25
PROVIDERS: ATTEND Nurse Practitioner Family
DX: R31.21 Asymptomatic microscopic hematuria (principal)

== ENCOUNTER → 2023-03-12 | Outpatient (REF) | payer MEDICARE, MEDICAID ==
[2023-03-12 18:00] LABS: CREATININE, URINE 67.4 MG/DL; MALB URINE SIEMENS < 3.0 MG/L; MAU/CREAT RATIO 4.4 MCG/MG (0.0-30.0)
== END ==
LOC: M LAB REF 16:41
PROVIDERS: ATTEND Internal Medicine Endocrinology, Diabetes & Metabolism
DX: E11.22 Type 2 diabetes mellitus with diabetic chronic kidney disease (principal)

== ENCOUNTER 2023-03-19 06:52 | Day surgery (SDC) | payer MEDICARE, MEDICAID ==
[~2023-03-19] VITALS: Ht 177.8 cm; Wt 152.9 kg
[~2023-03-19 06:52] MED LIST changes: +NS 1,000 ML IV ONE; +SIMETHICONE 40MG/0.6ML DROPS 30ML As Ordered ONE
[2023-03-19] MEDS ORDERED: fentaNYL 100 MCG/2 ML INJECTION As Ordered ONE (07:36)
[2023-03-19] MEDS ORDERED: propofoL 200 MG/20 ML VIAL As Ordered ONE ×2 (07:36→07:52)
[2023-03-19] MEDS ORDERED: LIDOCAINE 2% 100MG/5ML SDV (FOR ANES.) As Ordered ONE (07:36)
[2023-03-19] MEDS ORDERED: PHENYLephrine 500MCG 5ML (100MCG/ML) SYRINGE As Ordered ONE (07:49)
[2023-03-19 08:25] VITALS: BP 93/61; O2SAT 95
[2023-03-19] MEDS ORDERED: NOVOINJ3 SC (16:10)
[2023-03-20] MEDS ORDERED: METO1TAB33 PO (12:37)
== END 2023-03-19 08:32 | disposition home or self-care (01) ==
LOC: M OPP 06:52
PROVIDERS: ATTEND Internal Medicine Gastroenterology
DX: Z86.010 Personal history of colon polyps (principal); D12.4 Benign neoplasm of descending colon; K57.30 Diverticulosis of large intestine without perforation or abscess without bleeding; K64.8 Other hemorrhoids; K22.70 Barrett's esophagus without dysplasia; Z88.8 Allergy status to other drugs, medicaments and biological substances

== ENCOUNTER 2023-03-19 09:24 | Observation (INO) | payer MEDICARE, MEDICAID ==
[~2023-03-19] VITALS: Ht 177.8 cm; Wt 150.5 kg
[2023-03-19] VITALS (12 sets, daily range): BP systolic 113–133; BP diastolic 64–85; TEMP 97.6–98.6; O2SAT 91–97
[~2023-03-19 09:24] MED LIST changes: -NS 1,000 ML IV ONE; -SIMETHICONE 40MG/0.6ML DROPS 30ML As Ordered ONE
[2023-03-19] MEDS ORDERED: NS 1,000 ML IV ONE (10:35)
[2023-03-19 10:46] LABS: HEMOGLOBIN 17.3 g/dl (13.5-17.5); MEAN CORPUSCULAR HGB CONC 33.9 g/dl (32.0-36.5); MEAN CORPUSCULAR VOLUME 94.3 fl (80.0-96.0); PLATELET COUNT, AUTOMATED 245 10^3/uL (150-450); RED BLOOD COUNT 5.41 10^6/uL (4.30-6.10); WHITE BLOOD COUNT 8.1 10^3/uL (4.0-10.0)
[2023-03-19 10:54] LABS: INR 1.44; PROTHROMBIN TIME 17.1 SECONDS (12.5-14.5)
[2023-03-19 11:28] LABS: RSV AMPLIFICATION NEGATIVE (NEGATIVE)
[2023-03-19 11:29] LABS: BLOOD UREA NITROGEN 29 MG/DL (9-23); CALCIUM LEVEL 7.3 MG/DL (8.3-10.6); CARBON DIOXIDE LEVEL 27 MMOL/L (20-31); CHLORIDE LEVEL 103 MMOL/L (98-107); CK-MB VALUE MASS < 1.0 NG/ML (<3.6); CPK CREATINE PHOSPHOKINASE 56 U/L (46-171); CREATININE FOR GFR 1.47 MG/DL (0.70-1.30); GLOMERULAR FILTRATION RATE 50.4 (>42); GLUCOSE, FASTING 186 MG/DL (74-106); MB/CK RELATIVE INDEX 1.78 (< OR =4); POTASSIUM SERUM 3.1 MMOL/L (3.5-5.1); SODIUM LEVEL 138 MMOL/L (136-145)
[2023-03-19 11:32] LABS: THYROID STIMULATING HORMONE 1.654 uIU/ML (0.55-4.78)
[2023-03-19] MEDS ORDERED: LIDOCAINE W/EPINEPHRINE 1% 20ML VIAL As Ordered ONE (11:49)
[2023-03-19] MEDS ORDERED: LIDOCAINE W/EPINEPHRINE 1% 20ML VIAL SC ONE (11:50)
[2023-03-19 12:03] LABS: CK-MB VALUE MASS < 1.0 NG/ML (<3.6)
[2023-03-19 12:08] LABS: CPK CREATINE PHOSPHOKINASE 81 U/L (46-171); MB/CK RELATIVE INDEX 1.23 (< OR =4)
[2023-03-19] MEDS ORDERED: BOOSTRIX VACCINE (TETANUS/DIPHTH/ACEL. PERTUSSIS) 0.5ML SYR IM.IMMUN ONE (13:15)
[2023-03-19] MEDS ORDERED: POTASSIUM CHLORIDE 10MEQ SR TABLET PO ONE (14:00)
[2023-03-19] MEDS ORDERED: MED REC IN PROGRESS XX SCH (14:00)
[2023-03-19] MEDS ORDERED: ACETAMINOPHEN TAB 650MG DOSE (2X325MG) PO PRN (14:35)
[2023-03-19] MEDS ORDERED: GLUCOSE 4GM CHEW TABLET PO PRN (15:45)
[2023-03-19] MEDS ORDERED: DEXTROSE 50% 50ML SYRINGE IV PRN (15:45)
[2023-03-19] MEDS ORDERED: GLUCAGON INJ 1MG VIAL SC PRN (15:45)
[2023-03-19] MEDS ORDERED: NOVOINJ3 SC (16:10)
[2023-03-19] MEDS ORDERED: NITROGLYCERIN 0.4MG SUBL TABLET SL PRN (16:15)
[2023-03-19] MEDS ORDERED: HOME MED LIST COMPLETE! XX SCH (16:15)
[2023-03-19] MEDS ORDERED: WARFARIN SOD 5MG TAB PO SCH (17:00)
[2023-03-19] MEDS: INSULIN LISPRO (NovoLOG) PER UNIT SC SCH (17:28)
[2023-03-19] MEDS: METOPROLOL TART 25 MG TABLET PO SCH ×2 (17:32→23:11)
[2023-03-19] MEDS: TORSEMIDE 100 MG TAB PO SCH (17:39)
[2023-03-19] MEDS: GABAPENTIN 300 MG CAP PO SCH (20:08)
[2023-03-19] MEDS: aMILoride 5 MG TAB PO SCH (20:08)
[2023-03-19] MEDS: DOCUSATE SODIUM 100MG CAPSULE PO SCH (20:08)
[2023-03-19] MEDS ORDERED: MONTELUKAST 10 MG TAB PO SCH (21:00)
[2023-03-19] MEDS ORDERED: INSULIN LISPRO (NovoLOG) PER UNIT SC SCH (21:00)
[2023-03-20] VITALS (15 sets, daily range): BP systolic 121–122; BP diastolic 59–76; TEMP 97.4–97.7; O2SAT 92–96
[2023-03-20 05:50] LABS: HEMATOCRIT 49.7 % (42.0-52.0); HEMOGLOBIN 16.6 g/dl (13.5-17.5); MEAN CORPUSCULAR HEMOGLOBIN 30.9 pg (27.0-33.0); MEAN CORPUSCULAR HGB CONC 33.4 g/dl (32.0-36.5); MEAN CORPUSCULAR VOLUME 92.4 fl (80.0-96.0); PLATELET COUNT, AUTOMATED 168 10^3/uL (150-450); RED BLOOD COUNT 5.38 10^6/uL (4.30-6.10); WHITE BLOOD COUNT 7.2 10^3/uL (4.0-10.0)
[2023-03-20 05:55] LABS: INR 1.38; PROTHROMBIN TIME 16.6 SECONDS (12.5-14.5)
[2023-03-20] MEDS: METOPROLOL TART 25 MG TABLET PO SCH (06:04)
[2023-03-20 06:12] LABS: CALCIUM LEVEL 8.7 MG/DL (8.3-10.6); CREATININE FOR GFR 1.69 MG/DL (0.70-1.30); GLOMERULAR FILTRATION RATE 42.9 (>42); MAGNESIUM LEVEL 1.7 MG/DL (1.8-2.4); POTASSIUM SERUM 3.2 MMOL/L (3.5-5.1)
[2023-03-20] MEDS ORDERED: METOPROLOL TART 25 MG TABLET PO STA (06:51)
[2023-03-20] MEDS: INSULIN LISPRO (NovoLOG) PER UNIT SC SCH ×2 (07:51→12:09)
[2023-03-20] MEDS ORDERED: POTASSIUM CHLORIDE 10MEQ SR TABLET PO ONE (08:00)
[2023-03-20] MEDS ORDERED: MAG SULF 1GM/100ML (MAG RUN) 1 GM in IV 1 EA IV ONE (08:00)
[2023-03-20] MEDS: aMILoride 5 MG TAB PO SCH (08:04)
[2023-03-20] MEDS: TORSEMIDE 100 MG TAB PO SCH (08:05)
[2023-03-20] MEDS: DOCUSATE SODIUM 100MG CAPSULE PO SCH (08:05)
[2023-03-20] MEDS: GABAPENTIN 300 MG CAP PO SCH (08:05)
[2023-03-20] MEDS ORDERED: ATORVASTATIN 20 MG TAB PO SCH (09:00)
[2023-03-20] MEDS ORDERED: allopurinoL 300 MG TAB PO SCH (09:00)
[2023-03-20] MEDS ORDERED: ASPIRIN 81MG ENTERIC TABLET PO SCH (09:00)
[2023-03-20] MEDS ORDERED: DOXYCYCLINE HYCLATE 100MG TABLET PO SCH (09:00)
[2023-03-20] MEDS ORDERED: FEBUXOSTAT 40 MG TABLET (ULORIC) PO SCH (09:00)
[2023-03-20] MEDS ORDERED: EZETIMIBE 10MG TABLET (ZETIA) PO SCH (09:00)
[2023-03-20] MEDS ORDERED: OMEPRAZOLE 20MG CAP PO SCH (09:00)
[2023-03-20] MEDS ORDERED: ISOSORBIDE MON. (IMDUR) 60MG XR TAB PO SCH (09:00)
[2023-03-20] MEDS ORDERED: METOPROLOL TART 50 MG TAB PO SCH (12:00)
[2023-03-20] MEDS ORDERED: METO1TAB33 PO (12:37)
[2023-03-21] MEDS ORDERED: metOLazone 2.5 MG TAB PO SCH (09:00)
== END 2023-03-20 15:06 | disposition home health service (06) ==
LOC: M ED 09:24 → M ED INP 09:25 → ENRESERV 14:01 → M PCU 14:59
PROVIDERS: ADMIT Internal Medicine; ATTEND Internal Medicine
DX: S01.81XA Laceration without foreign body of other part of head, initial encounter (principal); I48.0 Paroxysmal atrial fibrillation; W19.XXXA Unspecified fall, initial encounter; Y92.093 Driveway of other non-institutional residence as the place of occurrence of the external cause; V48.4XXA Person boarding or alighting a car injured in noncollision transport accident, initial encounter; N18.4 Chronic kidney disease, stage 4 (severe); I12.9 Hypertensive chronic kidney disease with stage 1 through stage 4 chronic kidney disease, or unspecified chronic kidney disease; E78.5 Hyperlipidemia, unspecified; G90.09 Other idiopathic peripheral autonomic neuropathy; E11.9 Type 2 diabetes mellitus without complications; G47.33 Obstructive sleep apnea (adult) (pediatric); I50.30 Unspecified diastolic (congestive) heart failure; K21.9 Gastro-esophageal reflux disease without esophagitis; I25.10 Atherosclerotic heart disease of native coronary artery without angina pectoris; M10.9 Gout, unspecified; K85.90 Acute pancreatitis without necrosis or infection, unspecified; E87.6 Hypokalemia; R53.81 Other malaise; Z86.010 Personal history of colon polyps; K57.30 Diverticulosis of large intestine without perforation or abscess without bleeding; K64.8 Other hemorrhoids; K22.70 Barrett's esophagus without dysplasia; Z79.4 Long term (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 insulin; Z79.82 Long term (current) use of aspirin; Z79.01 Long term (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 anticoagulants; Z79.899 Other long term (current) drug therapy; Z88.8 Allergy status to other drugs, medicaments and biological substances
CPT/HCPCS: 12013; 36415; 43239; 45385; 70450; 70486; 72125; 80048; 82550; 82553; 83735; 84443; 84484; 85027; 85610; 85730; 87631; 88305; 90471; 90715; 93005; 93041; 94760; 96372; 96374; 96376; 97116; 97161; 99285; G0378; J1815; J2371; J3010; J3475

== ENCOUNTER 2023-04-14 12:24 | Outpatient (RCR) | payer MEDICARE, MEDICAID ==
[~2023-04-14 12:24] MED LIST changes: +NOVOINJ3 SC
== END 2023-04-15 ==
LOC: M PT 12:24
PROVIDERS: ATTEND Internal Medicine
DX: R26.89 Other abnormalities of gait and mobility (principal)

== ENCOUNTER 2023-05-03 12:32 | Outpatient (RCR) | payer MEDICARE, MEDICAID | END 2023-05-16 | LOC: M PT 12:32 | PROVIDERS: ATTEND Internal Medicine | DX: R26.89 Other abnormalities of gait and mobility (principal) ==

== ENCOUNTER → 2023-08-19 | Outpatient (REF) | payer MEDICARE ==
[~2023-08-19] MED LIST changes: -ASPI-161 PO; +ASPI-615 PO
== END ==
LOC: M SFHCPLAZ 16:57
PROVIDERS: ATTEND Family Medicine
DX: M1A.9XX0 Chronic gout, unspecified, without tophus (tophi) (principal); E11.21 Type 2 diabetes mellitus with diabetic nephropathy

== ENCOUNTER 2023-09-25 18:14 | Inpatient (IN) | payer MEDICARE, MEDICAID ==
[~2023-09-25] VITALS: Ht 177.8 cm; Wt 154.6 kg
[2023-09-25 19:47] LABS: BASO % 0.2 % (0.0-1.0); EOS % 0.1 % (0.0-3.0); HEMOGLOBIN 17.5 g/dl (13.5-17.5); LYMPH # 0.7 10^3/uL (1.5-5.0); LYMPH % 5.3 % (24.0-44.0); MEAN CORPUSCULAR HEMOGLOBIN 31.3 pg (27.0-33.0); MEAN CORPUSCULAR HGB CONC 33.3 g/dl (32.0-36.5); MEAN CORPUSCULAR VOLUME 93.9 fl (80.0-96.0); MONO % 6.8 % (2.0-8.0); NEUTROPHILS # 12.1 10^3/uL (1.5-8.5); NEUTROPHILS % 87.1 % (36.0-66.0); PLATELET COUNT, AUTOMATED 177 10^3/uL (150-450); RED BLOOD COUNT 5.59 10^6/uL (4.30-6.10); WHITE BLOOD COUNT 13.9 10^3/uL (4.0-10.0)
[2023-09-25 20:01] LABS: HEMATOCRIT 52.5 % (42.0-52.0)
[2023-09-25 20:17] LABS: C REACTIVE PROTEIN QUANTITATIV 8.3 MG/DL (<1.0)
[2023-09-25 20:21] LABS: INR 2.07; PARTIAL THROMBOPLASTIN TIME 42.2 SECONDS (24.8-34.2); PROTHROMBIN TIME 22.6 SECONDS (12.5-14.5)
[2023-09-25] MEDS: METOPROLOL TART 50 MG TAB PO ONE (20:21)
[2023-09-25] MEDS: METOPROLOL 5 MG/5 ML VIAL IV PRN ×2 (20:21→21:28)
[2023-09-25 20:25] LABS: PROCALCITONIN 0.34 ng/ml
[2023-09-25 20:26] LABS: BILIRUBIN,DIRECT 0.5 MG/DL (<0.4); BILIRUBIN,TOTAL 1.4 MG/DL (0.3-1.2); CALCIUM LEVEL 8.9 MG/DL (8.3-10.6); CREATININE FOR GFR 1.99 MG/DL (0.70-1.30); GLOMERULAR FILTRATION RATE 35.4 (>42); MB/CK RELATIVE INDEX 0.56 (< OR =4); POTASSIUM SERUM 4.7 MMOL/L (3.5-5.1); TOTAL PROTEIN 7.3 G/DL (5.7-8.2)
[2023-09-25 21:31] LABS: CK-MB VALUE MASS 2.3 NG/ML (<3.6)
[2023-09-25 21:32] LABS: MB/CK RELATIVE INDEX 0.99 (< OR =4)
[2023-09-25] MEDS: FUROSEMIDE 40MG/4ML VIAL IV ONE (23:51)
[2023-09-25] MEDS ORDERED: DOCU100C16 PO (23:59)
[2023-09-25] MEDS ORDERED: MULT-40 PO (23:59)
[2023-09-25] MEDS ORDERED: METO200T15 PO (23:59)
[2023-09-26] VITALS (8 sets, daily range): BP systolic 92–112; BP diastolic 54–70; TEMP 97.4–98.2; O2SAT 95–97
[2023-09-26] MEDS ORDERED: POTA-298 PO (00:06)
[2023-09-26] MEDS ORDERED: POTA-151 PO (00:06)
[2023-09-26] MEDS ORDERED: WARF-18 PO (00:06)
[2023-09-26] MEDS ORDERED: TOUJ300I2 INJ (00:06)
[2023-09-26] MEDS ORDERED: HOME MED LIST COMPLETE! XX SCH (00:10)
[2023-09-26] MEDS ORDERED: GLUCOSE 4 GM CHEW PO PRN (01:25)
[2023-09-26] MEDS ORDERED: VANCOMYCIN HCL 1,000 MG, VIAL MATE ADAPTER 1 EACH in D5W 250 ML IV SCH (01:25)
[2023-09-26] MEDS ORDERED: GLUCAGON INJ 1MG VIAL SC PRN (01:25)
[2023-09-26] MEDS ORDERED: DEXTROSE 50% 50ML SYRINGE IV PRN (01:25)
[2023-09-26 02:53] LABS: INR 1.97; PROTHROMBIN TIME 21.7 SECONDS (12.5-14.5)
[2023-09-26] MEDS: VANCOMYCIN HCL 1,000 MG, VIAL MATE ADAPTER 1 EACH in D5W 250 ML IV ONE ×2 (03:05→04:54)
[2023-09-26] MEDS: ACETAMINOPHEN TAB 650MG DOSE (2X325MG) PO ONE (03:09)
[2023-09-26 03:14] LABS: BILIRUBIN,TOTAL 1.2 MG/DL (0.3-1.2); CALCIUM LEVEL 8.7 MG/DL (8.3-10.6); CREATININE FOR GFR 2.08 MG/DL (0.70-1.30); GLOMERULAR FILTRATION RATE 33.7 (>42); POTASSIUM SERUM 3.3 MMOL/L (3.5-5.1); TOTAL PROTEIN 6.6 G/DL (5.7-8.2)
[2023-09-26] MEDS ORDERED: PIPERACILLIN/TAZOBACTAM SOD 4.5 GM in D5W MINI-BAG PLUS 50 ML IV SCH (04:00)
[2023-09-26] MEDS: PIPERACILLIN/TAZOBACTAM SOD 4.5 GM in D5W MINI-BAG PLUS 50 ML IV SCH (05:25)
[2023-09-26] MEDS: NS 1,000 ML IV SCH (05:26)
[2023-09-26 07:13] LABS: MAGNESIUM LEVEL 2.1 MG/DL (1.8-2.4)
[2023-09-26 07:19] LABS: THYROID STIMULATING HORMONE 1.634 uIU/ML (0.55-4.78)
[2023-09-26] MEDS: INSULIN LISPRO (NovoLOG) PER UNIT SC SCH ×2 (07:30→20:55)
[2023-09-26] MEDS: TORSEMIDE 100 MG TAB PO SCH (09:01)
[2023-09-26] MEDS: LEVEMIR (INSULIN DETEMIR) 1 UNITS/0.01ML SC SCH (09:01)
[2023-09-26] MEDS: aMILoride 5 MG TAB PO SCH (09:02)
[2023-09-26] MEDS: GABAPENTIN 300 MG CAP PO SCH (09:02)
[2023-09-26] MEDS: OMEPRAZOLE 20MG CAP PO SCH (09:02)
[2023-09-26] MEDS: ISOSORBIDE MON. (IMDUR) 60MG XR TAB PO SCH (09:02)
[2023-09-26] MEDS: allopurinoL 300 MG TAB PO SCH (09:02)
[2023-09-26] MEDS: EZETIMIBE 10MG TABLET (ZETIA) PO SCH (09:02)
[2023-09-26] MEDS: METOPROLOL SUCC (TopROL XL) 100MG *XL* TAB PO SCH (09:02)
[2023-09-26] MEDS: ASPIRIN 81MG ENTERIC TABLET PO SCH (09:02)
[2023-09-26] MEDS: metOLazone 2.5 MG TAB PO SCH (09:03)
[2023-09-26] MEDS: POTASSIUM CHLORIDE 10MEQ SR TABLET PO ONE (09:03)
[2023-09-26] MEDS: ATORVASTATIN 20 MG TAB PO SCH (09:03)
[2023-09-26] MEDS: FLUCONAZOLE 100 MG TAB PO ONE (12:06)
[2023-09-26] MEDS: CLOTRIMAZOLE 1% TOPICAL CREAM 30GM TOP SCH (12:06)
[2023-09-26] MEDS ORDERED: LIDOCAINE 5% (LIDODERM) PATCH TD PRN ×2 (14:40→16:40)
[2023-09-26 15:33] LABS: BASO % 0.3 % (0.0-1.0); EOS % 0.2 % (0.0-3.0); HEMOGLOBIN 16.6 g/dl (13.5-17.5); LYMPH # 1.5 10^3/uL (1.5-5.0); LYMPH % 12.8 % (24.0-44.0); MEAN CORPUSCULAR HEMOGLOBIN 31.4 pg (27.0-33.0); MEAN CORPUSCULAR HGB CONC 32.6 g/dl (32.0-36.5); MEAN CORPUSCULAR VOLUME 96.2 fl (80.0-96.0); MONO # 1.6 10^3/uL (0.0-0.8); NEUTROPHILS # 8.8 10^3/uL (1.5-8.5); NEUTROPHILS % 73.4 % (36.0-66.0); PLATELET COUNT, AUTOMATED 154 10^3/uL (150-450); RED BLOOD COUNT 5.29 10^6/uL (4.30-6.10)
[2023-09-26 15:38] LABS: HEMATOCRIT 50.9 % (42.0-52.0)
[2023-09-26] MEDS: WARFARIN SOD 5MG TAB PO SCH (17:52)
[2023-09-26] MEDS: MONTELUKAST 10 MG TAB PO SCH (20:54)
[2023-09-27 03:30] VITALS: BP 126/70; TEMP 98.4; O2SAT 95
[2023-09-27] MEDS: VANCOMYCIN HCL 750 MG, VIAL MATE ADAPTER 1 EACH in D5W 250 ML IV SCH ×2 (03:38→05:09)
[2023-09-27 06:19] LABS: BASO % 0.4 % (0.0-1.0); EOS # 0.2 10^3/uL (0.0-0.5); EOS % 2.2 % (0.0-3.0); HEMATOCRIT 48.9 % (42.0-52.0); HEMOGLOBIN 16.7 g/dl (13.5-17.5); LYMPH # 1.2 10^3/uL (1.5-5.0); LYMPH % 11.4 % (24.0-44.0); MEAN CORPUSCULAR HEMOGLOBIN 31.6 pg (27.0-33.0); MEAN CORPUSCULAR HGB CONC 34.2 g/dl (32.0-36.5); MEAN CORPUSCULAR VOLUME 92.4 fl (80.0-96.0); MONO # 1.3 10^3/uL (0.0-0.8); MONO % 12.4 % (2.0-8.0); NEUTROPHILS # 7.4 10^3/uL (1.5-8.5); NEUTROPHILS % 73.2 % (36.0-66.0); PLATELET COUNT, AUTOMATED 145 10^3/uL (150-450); RED BLOOD COUNT 5.29 10^6/uL (4.30-6.10); WHITE BLOOD COUNT 10.1 10^3/uL (4.0-10.0)
[2023-09-27 06:47] LABS: CALCIUM LEVEL 9.1 MG/DL (8.3-10.6); CREATININE FOR GFR 2.03 MG/DL (0.70-1.30); GLOMERULAR FILTRATION RATE 34.6 (>42); POTASSIUM SERUM 2.8 MMOL/L (3.5-5.1)
[2023-09-27 07:43] VITALS: BP 111/77; TEMP 98; O2SAT 97
[2023-09-27] MEDS: POTASSIUM CHLORIDE 10% LIQ 20MEQ/15ML UDC PO ONE (08:13)
[2023-09-27] MEDS: KCL 10MEQ/100ML SWI (KRUN) 10 MEQ in IV 1 EA IV SCH (08:14)
[2023-09-27] MEDS: LACTOBACILLUS ACIDOPHILUS CAP (BACID) PO SCH (09:00)
[2023-09-27 12:28] VITALS: BP 118/68; TEMP 97.8; O2SAT 99
[2023-09-27] MEDS: CEPHALEXIN 500 MG CAP PO SCH (12:36)
[2023-09-27 13:47] LABS: CALCIUM LEVEL 9.4 MG/DL (8.3-10.6); CREATININE FOR GFR 2.06 MG/DL (0.70-1.30); GLOMERULAR FILTRATION RATE 34.1 (>42); POTASSIUM SERUM 3.8 MMOL/L (3.5-5.1)
[2023-09-27 16:00] VITALS: BP 132/53; TEMP 97; O2SAT 96
[2023-09-27] MEDS: WARFARIN SOD 2.5MG TAB PO SCH (17:20)
[2023-09-27] MEDS: POTASSIUM CHLORIDE 10MEQ SR TABLET PO ONE (18:18)
[2023-09-27 19:12] VITALS: BP 121/66; TEMP 97.3; O2SAT 93
[2023-09-28 00:49] LABS: CREATININE FOR GFR 2.05 MG/DL (0.70-1.30); GLOMERULAR FILTRATION RATE 34.2 (>42); POTASSIUM SERUM 3.3 MMOL/L (3.5-5.1)
[2023-09-28] MEDS: POTASSIUM CHLORIDE 10MEQ SR TABLET PO ONE ×2 (01:47→08:26)
[2023-09-28] MEDS: KCL 10MEQ/100ML SWI (KRUN) 10 MEQ in IV 1 EA IV SCH ×2 (01:47→08:00)
[2023-09-28 06:13] LABS: BASO # 0.1 10^3/uL (0.0-0.2); BASO % 0.5 % (0.0-1.0); EOS # 0.3 10^3/uL (0.0-0.5); EOS % 2.4 % (0.0-3.0); HEMOGLOBIN 16.9 g/dl (13.5-17.5); LYMPH # 1.3 10^3/uL (1.5-5.0); LYMPH % 11.6 % (24.0-44.0); MEAN CORPUSCULAR HGB CONC 33.5 g/dl (32.0-36.5); MEAN CORPUSCULAR VOLUME 92.5 fl (80.0-96.0); MONO # 1.2 10^3/uL (0.0-0.8); MONO % 10.9 % (2.0-8.0); NEUTROPHILS # 8.4 10^3/uL (1.5-8.5); NEUTROPHILS % 74.2 % (36.0-66.0); PLATELET COUNT, AUTOMATED 165 10^3/uL (150-450); RED BLOOD COUNT 5.45 10^6/uL (4.30-6.10); WHITE BLOOD COUNT 11.3 10^3/uL (4.0-10.0)
[2023-09-28 06:18] LABS: HEMATOCRIT 50.4 % (42.0-52.0)
[2023-09-28 06:29] LABS: CALCIUM LEVEL 8.9 MG/DL (8.3-10.6); CREATININE FOR GFR 1.96 MG/DL (0.70-1.30); GLOMERULAR FILTRATION RATE 36.1 (>42); MAGNESIUM LEVEL 1.9 MG/DL (1.8-2.4); POTASSIUM SERUM 3.2 MMOL/L (3.5-5.1)
[2023-09-28 07:00] VITALS: BP 124/81; TEMP 97.1; O2SAT 95
[2023-09-28 07:59] VITALS: BP 150/79; TEMP 96.9; O2SAT 100
[2023-09-28] MEDS: POTASSIUM CHLORIDE 10MEQ SR TABLET PO SCH ×2 (09:50→12:21)
[2023-09-28 09:58] LABS: INR 1.7; PROTHROMBIN TIME 19.4 SECONDS (12.5-14.5)
[2023-09-28] MEDS ORDERED: MOM 30ML SUSPENSION UDC PO PRN (10:25)
[2023-09-28 12:00] VITALS: BP 138/70; TEMP 97.2; O2SAT 98
[2023-09-28] MEDS: SENOKOT S TAB PO SCH (12:21)
[2023-09-28] MEDS: SPIRONOLACTONE 25 MG TAB PO ONE (13:16)
[2023-09-28 15:43] LABS: POTASSIUM SERUM 3.7 MMOL/L (3.5-5.1)
[2023-09-28 15:53] LABS: C REACTIVE PROTEIN QUANTITATIV 14.9 MG/DL (<1.0)
[2023-09-28 16:00] VITALS: BP 154/72; TEMP 99; O2SAT 97
[2023-09-28] MEDS: WARFARIN SOD 5MG TAB PO SCH (18:04)
[2023-09-28 20:28] VITALS: BP 136/63; TEMP 98.5; O2SAT 96
[2023-09-28] MEDS: MIRALAX *UNIT DOSE* 17GM PACKET PO SCH (21:17)
[2023-09-28 23:47] VITALS: BP 135/78; TEMP 98.4; O2SAT 96
[2023-09-29] MEDS: ACETAMINOPHEN 500 MG TAB PO PRN
[2023-09-29 05:38] VITALS: BP 137/66; TEMP 98; O2SAT 98
[2023-09-29 06:41] LABS: BASO % 0.4 % (0.0-1.0); EOS # 0.3 10^3/uL (0.0-0.5); EOS % 2.8 % (0.0-3.0); HEMATOCRIT 50.6 % (42.0-52.0); HEMOGLOBIN 16.9 g/dl (13.5-17.5); LYMPH # 1.5 10^3/uL (1.5-5.0); LYMPH % 15.6 % (24.0-44.0); MEAN CORPUSCULAR HEMOGLOBIN 31.1 pg (27.0-33.0); MEAN CORPUSCULAR HGB CONC 33.4 g/dl (32.0-36.5); MONO # 1.1 10^3/uL (0.0-0.8); MONO % 11.4 % (2.0-8.0); NEUTROPHILS # 6.5 10^3/uL (1.5-8.5); NEUTROPHILS % 69.3 % (36.0-66.0); PLATELET COUNT, AUTOMATED 187 10^3/uL (150-450); RED BLOOD COUNT 5.44 10^6/uL (4.30-6.10); WHITE BLOOD COUNT 9.4 10^3/uL (4.0-10.0)
[2023-09-29 06:46] LABS: INR 1.8; PROTHROMBIN TIME 20.3 SECONDS (12.5-14.5)
[2023-09-29 07:02] LABS: CALCIUM LEVEL 9.3 MG/DL (8.3-10.6); CREATININE FOR GFR 2.09 MG/DL (0.70-1.30); GLOMERULAR FILTRATION RATE 33.5 (>42); MAGNESIUM LEVEL 2.1 MG/DL (1.8-2.4); POTASSIUM SERUM 3.8 MMOL/L (3.5-5.1)
[2023-09-29 08:13] LABS: C REACTIVE PROTEIN QUANTITATIV 17.1 MG/DL (<1.0)
[2023-09-29 10:00] VITALS: BP 130/78; TEMP 97.3; O2SAT 99
[2023-09-29] MEDS: SPIRONOLACTONE 25 MG TAB PO SCH (11:09)
[2023-09-29] MEDS: LINEZOLID 600MG TABLET (ZYVOX) PO SCH (11:25)
[2023-09-29 14:00] VITALS: BP 149/75; TEMP 97.3; O2SAT 99
[2023-09-29] MEDS: NYSTATIN 100,000 UNITS/GM TOPICAL PWD 15GM TOP PRN (14:09)
[2023-09-29] MEDS: POTASSIUM CHLORIDE 10MEQ SR TABLET PO SCH (14:10)
[2023-09-29] MEDS: WARFARIN SOD 7.5MG TAB PO SCH (17:18)
[2023-09-29 18:00] VITALS: BP 143/76; TEMP 97.3; O2SAT 98
[2023-09-29 19:53] VITALS: BP 136/76; TEMP 97.7; O2SAT 98
[2023-09-29] MEDS: LEVEMIR (INSULIN DETEMIR) 1 UNITS/0.01ML SC SCH (21:13)
[2023-09-30 02:00] VITALS: BP 101/71; TEMP 97.3; O2SAT 97
[2023-09-30 04:57] VITALS: BP 135/83; TEMP 97.2; O2SAT 93
[2023-09-30 06:40] LABS: BASO # 0.1 10^3/uL (0.0-0.2); BASO % 0.5 % (0.0-1.0); EOS # 0.3 10^3/uL (0.0-0.5); EOS % 3.2 % (0.0-3.0); HEMATOCRIT 50.7 % (42.0-52.0); LYMPH # 1.2 10^3/uL (1.5-5.0); LYMPH % 12.4 % (24.0-44.0); MEAN CORPUSCULAR HEMOGLOBIN 31.1 pg (27.0-33.0); MEAN CORPUSCULAR HGB CONC 33.5 g/dl (32.0-36.5); MEAN CORPUSCULAR VOLUME 92.7 fl (80.0-96.0); MONO # 0.9 10^3/uL (0.0-0.8); MONO % 8.8 % (2.0-8.0); NEUTROPHILS # 7.5 10^3/uL (1.5-8.5); NEUTROPHILS % 74.5 % (36.0-66.0); PLATELET COUNT, AUTOMATED 198 10^3/uL (150-450); RED BLOOD COUNT 5.47 10^6/uL (4.30-6.10)
[2023-09-30 06:48] LABS: INR 2.13; PROTHROMBIN TIME 23.1 SECONDS (12.5-14.5)
[2023-09-30 07:04] LABS: C REACTIVE PROTEIN QUANTITATIV 17.9 MG/DL (<1.0)
[2023-09-30 07:07] LABS: CALCIUM LEVEL 9.1 MG/DL (8.3-10.6); CREATININE FOR GFR 2.04 MG/DL (0.70-1.30); GLOMERULAR FILTRATION RATE 34.4 (>42)
[2023-09-30 08:36] VITALS: BP 116/80
[2023-09-30] MEDS ORDERED: LINE1TAB6 PO (10:33)
[2023-09-30] MEDS ORDERED: CLOTR1CR TOP (10:33)
[2023-09-30] MEDS ORDERED: RISATAB3 PO (10:33)
[2023-09-30] MEDS ORDERED: ALDA25TA2 PO (10:33)
== END 2023-09-30 11:26 | DRG 603 ==
LOC: M ED 18:14 → M ED INP 09-26 → M PCU 09-26 01:48 → M MSPAV 09-28 23:47
PROVIDERS: ADMIT Family Medicine; ATTEND Internal Medicine
DX: L03.115 Cellulitis of right lower limb (principal); I50.32 Chronic diastolic (congestive) heart failure; J96.10 Chronic respiratory failure, unspecified whether with hypoxia or hypercapnia; I13.0 Hypertensive heart and chronic kidney disease with heart failure and stage 1 through stage 4 chronic kidney disease, or unspecified chronic kidney disease; Z68.42 Body mass index [BMI] 45.0-49.9, adult; I48.91 Unspecified atrial fibrillation; N18.30 Chronic kidney disease, stage 3 unspecified; E66.01 Morbid (severe) obesity due to excess calories; E11.22 Type 2 diabetes mellitus with diabetic chronic kidney disease; E11.42 Type 2 diabetes mellitus with diabetic polyneuropathy; K76.0 Fatty (change of) liver, not elsewhere classified; I25.10 Atherosclerotic heart disease of native coronary artery without angina pectoris; E78.5 Hyperlipidemia, unspecified; K80.20 Calculus of gallbladder without cholecystitis without obstruction; M10.9 Gout, unspecified; R53.1 Weakness; R33.9 Retention of urine, unspecified; E87.6 Hypokalemia; B37.2 Candidiasis of skin and nail; G47.33 Obstructive sleep apnea (adult) (pediatric); K21.9 Gastro-esophageal reflux disease without esophagitis; R29.6 Repeated falls; M48.00 Spinal stenosis, site unspecified; Z88.8 Allergy status to other drugs, medicaments and biological substances; Z79.899 Other long term (current) drug therapy; Z79.82 Long term (current) use of aspirin; Z79.4 Long term (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 insulin; Z95.2 Presence of prosthetic heart valve; Z98.41 Cataract extraction status, right eye; Z98.42 Cataract extraction status, left eye; Z87.891 Personal history of nicotine dependence; Z66 Do not resuscitate

== ENCOUNTER → 2023-09-30 | Outpatient (REF) ==
[~2023-09-30] MED LIST changes: +ALDA25TA2 PO; +CLOTR1CR TOP; +DOCU100C16 PO; +LINE1TAB6 PO; +METO200T15 PO; +MULT-40 PO; +TOUJ300I2 INJ; +WARF-18 PO
== END ==
PROVIDERS: ATTEND Internal Medicine
DX: M85.88 Other specified disorders of bone density and structure, other site (principal); M19.011 Primary osteoarthritis, right shoulder

== ENCOUNTER → 2023-10-02 | Outpatient (REF) | PROVIDERS: ATTEND Physician Assistant | DX: I50.9 Heart failure, unspecified (principal); I48.91 Unspecified atrial fibrillation; Z53.8 Procedure and treatment not carried out for other reasons ==

== ENCOUNTER → 2023-10-07 | Outpatient (REF) ==
[~2023-10-07] MED LIST changes: +ALLO300T2; +AMIL25TA; +ASPI81CH33 PO; +ATOR80TA59; +DIPH-435 PO; +DOXY100T PO; +ESSETAB4 PO; +EZET10TA21; +FLAS1KIT; +GABA-282; +HUMU500S SC; +HUMU500S2; +ISOS1TAB36; +METO200T15; +MM S100C PO; +MONT10TA97; +NITR4TASL SL; +NOVOINJ3; +OMEP40CA5; +OSTE1TAB2 PO; +POTA-151; +RA M500C PO; +TORS100T; +VITA100093 PO; +WARF-23
[2023-10-07 13:18] LABS: PROTHROMBIN TIME 50.4 SECONDS (12.5-14.5)
[2023-10-07 13:24] LABS: INR 5.89
[2023-10-07 13:58] LABS: CALCIUM LEVEL 9.3 MG/DL (8.3-10.6); CREATININE FOR GFR 2.53 MG/DL (0.70-1.30); GLOMERULAR FILTRATION RATE 26.9 (>42); POTASSIUM SERUM 4.4 MMOL/L (3.5-5.1)
== END ==
PROVIDERS: ATTEND Physician Assistant
DX: E87.5 Hyperkalemia (principal); I48.91 Unspecified atrial fibrillation

== ENCOUNTER 2023-10-09 03:54 | Inpatient (IN) | payer MEDICARE, MEDICAID ==
[2023-10-09] VITALS (64 sets, daily range): BP systolic 53–118; BP diastolic 40–93; TEMP 96.8–97.6; O2SAT 91–98
[~2023-10-09] VITALS: Ht 177.8 cm; Wt 161.2 kg
[2023-10-09 04:25] LABS: BASO % 0.3 % (0.0-1.0); EOS % 0.2 % (0.0-3.0); HEMATOCRIT 56.7 % (42.0-52.0); LYMPH # 1.1 10^3/uL (1.5-5.0); LYMPH % 9.3 % (24.0-44.0); MEAN CORPUSCULAR HEMOGLOBIN 31.1 pg (27.0-33.0); MEAN CORPUSCULAR HGB CONC 33.7 g/dl (32.0-36.5); MEAN CORPUSCULAR VOLUME 92.2 fl (80.0-96.0); MONO # 0.6 10^3/uL (0.0-0.8); MONO % 4.8 % (2.0-8.0); NEUTROPHILS # 10.2 10^3/uL (1.5-8.5); NEUTROPHILS % 84.9 % (36.0-66.0); PLATELET COUNT, AUTOMATED 234 10^3/uL (150-450); RED BLOOD COUNT 6.15 10^6/uL (4.30-6.10); WHITE BLOOD COUNT 12.1 10^3/uL (4.0-10.0)
[2023-10-09 04:43] LABS: HEMOGLOBIN 19.1 g/dl (13.5-17.5)
[2023-10-09 04:49] LABS: VENOUS HCO3 25.6 MMOL/L (23.0-27.0); VENOUS O2 SATURATION 64.2 % (60.0-80.0); VENOUS PARTIAL PRESSURE CO2 52.9 mmHg (38.0-50.0); VENOUS PARTIAL PRESSURE O2 36.8 mmHg (30.0-50.0); VENOUS PH 7.302 UNITS (7.330-7.430); VENOUS STANDARD HCO3 21.7 MMOL/L; VENOUS TOTAL CO2 27.2 MMOL/L (24.0-28.0)
[2023-10-09 04:57] LABS: AMPHETAMINES LEVEL URINE NEGATIVE (NEGATIVE); BARBITURATES URINE NEGATIVE (NEGATIVE); BENZODIAZEPINES URINE NEGATIVE (NEGATIVE); COCAINE METABOLITE URINE NEGATIVE (NEGATIVE); METHADONE URINE NEGATIVE (NEGATIVE); OPIATES URINE NEGATIVE (NEGATIVE); PHENCYCLIDINE URINE NEGATIVE (NEGATIVE)
[2023-10-09 04:58] LABS: CANNABINOIDS URINE NEGATIVE (NEGATIVE)
[2023-10-09 05:00] LABS: ETHYL ALCOHOL (ETHANOL) < 0.003 % (0.000-0.010)
[2023-10-09 05:02] LABS: SALICYLATE LEVEL < 3.0 MG/DL (<30)
[2023-10-09 05:04] LABS: THYROID STIMULATING HORMONE 3.804 uIU/ML (0.55-4.78)
[2023-10-09 05:23] LABS: ALBUMIN 3.3 G/DL (3.2-5.2); ALKALINE PHOSPHATASE 181 U/L (46-116); ALT/SGPT 124 U/L (7.0-40); AST/SGOT 99 U/L (<34); BILIRUBIN,TOTAL 2.3 MG/DL (0.3-1.2); BLOOD UREA NITROGEN 105 MG/DL (9-23); CALCIUM LEVEL 9.5 MG/DL (8.3-10.6); CARBON DIOXIDE LEVEL 27 MMOL/L (20-31); CHLORIDE LEVEL 93 MMOL/L (98-107); CPK CREATINE PHOSPHOKINASE 927 U/L (46-171); CREATININE FOR GFR 3.66 MG/DL (0.70-1.30); GLOMERULAR FILTRATION RATE 17.5 (>42); GLUCOSE, FASTING 275 MG/DL (74-106); MB/CK RELATIVE INDEX 0.97 (< OR =4); POTASSIUM SERUM 4.4 MMOL/L (3.5-5.1); SODIUM LEVEL 133 MMOL/L (136-145); TOTAL PROTEIN 7.8 G/DL (5.7-8.2)
[2023-10-09] MEDS: NS 1,000 ML IV ONE ×2 (05:34→06:40)
[2023-10-09] MEDS: NOREPINEPHRINE 4MG IN D5 250ML 4 MG in IV 1 EA IV SCH ×3 (05:54→19:28)
[2023-10-09] MEDS: CEFEPIME HCL 2 GM in D5W MINI-BAG PLUS 50 ML IV ONE (05:58)
[2023-10-09] MEDS: LR 1,000 ML IV SCH (10:00)
[2023-10-09 10:34] LABS: VENOUS BASE EXCESS -3.8 (-2.0-2.0); VENOUS HCO3 22.8 MMOL/L (23.0-27.0); VENOUS O2 SATURATION 94.6 % (60.0-80.0); VENOUS PARTIAL PRESSURE CO2 46.4 mmHg (38.0-50.0); VENOUS PARTIAL PRESSURE O2 81.8 mmHg (30.0-50.0); VENOUS PH 7.309 UNITS (7.330-7.430); VENOUS STANDARD HCO3 21.3 MMOL/L; VENOUS TOTAL CO2 24.2 MMOL/L (24.0-28.0)
[2023-10-09 10:49] LABS: INR 3.84; PROTHROMBIN TIME 36.3 SECONDS (12.5-14.5)
[2023-10-09] MEDS ORDERED: [UNRECOGNIZED DRUG - CODE] PO (10:58)
[2023-10-09] MEDS ORDERED: BISA10SU59 PR (10:58)
[2023-10-09] MEDS ORDERED: FLEEENE12 PR (10:58)
[2023-10-09] MEDS ORDERED: OLME40TA PO (10:58)
[2023-10-09] MEDS ORDERED: TUBE5INJ ID (10:58)
[2023-10-09] MEDS ORDERED: WARF4TAB51 PO (10:58)
[2023-10-09] MEDS ORDERED: CLOT1CRE56 TOP (10:58)
[2023-10-09] MEDS ORDERED: SODI15SS PO (10:58)
[2023-10-09] MEDS ORDERED: SPIR-10 PO (10:58)
[2023-10-09] MEDS ORDERED: GLUC1KIT IM (10:58)
[2023-10-09] MEDS ORDERED: LINE1TAB6 PO (10:58)
[2023-10-09] MEDS ORDERED: MAALSUS19 PO (10:58)
[2023-10-09] MEDS ORDERED: OLME20TA50 PO (10:58)
[2023-10-09] MEDS ORDERED: PROBCAP14 PO (10:58)
[2023-10-09] MEDS ORDERED: MILK24002 PO (10:58)
[2023-10-09] MEDS ORDERED: HOME MED LIST COMPLETE! XX SCH (11:05)
[2023-10-09] MEDS: LR 1,000 ML IV ONE ×3 (11:35→15:32)
[2023-10-09] MEDS: VANCOMYCIN HCL 1,000 MG, VIAL MATE ADAPTER 1 EACH in D5W 250 ML IV ONE ×2 (12:33→15:32)
[2023-10-09] MEDS: HYDROCORTISONE 100MG/2ML VIAL IV STA (13:49)
[2023-10-09] MEDS: VASOPRESSIN INJ 20 UNITS in NS 499 ML IV SCH (14:25)
[2023-10-09] MEDS: PANTOPRAZOLE 40MG VIAL IV SCH (15:30)
[2023-10-09] MEDS: HEPARIN SOD (PORCINE) 5000UNITS/ML 1ML VIAL/SYRINGE SC SCH (15:31)
[2023-10-09] MEDS ORDERED: DEXTROSE 50% 50ML SYRINGE IV PRN (17:40)
[2023-10-09] MEDS ORDERED: GLUCOSE 4 GM CHEW PO PRN (17:40)
[2023-10-09] MEDS ORDERED: GLUCAGON INJ 1MG VIAL SC PRN (17:40)
[2023-10-09 17:46] LABS: C REACTIVE PROTEIN QUANTITATIV 8.5 MG/DL (<1.0)
[2023-10-09 18:10] LABS: CREATININE FOR GFR 3.74 MG/DL (0.70-1.30); GLOMERULAR FILTRATION RATE 17.1 (>42); PHOSPHORUS LEVEL 5.9 MG/DL (2.4-5.1); POTASSIUM SERUM 4.1 MMOL/L (3.5-5.1)
[2023-10-09 18:16] LABS: PROCALCITONIN 24.41 ng/ml
[2023-10-09] MEDS: INSULIN LISPRO (NovoLOG) PER UNIT SC SCH (18:18)
[2023-10-09 18:32] LABS: ERYTHROCYTE SEDIMENTATION RATE 122 mm/hr (0-20)
[2023-10-09 18:39] LABS: ABG BASE EXCESS -7.8 (-2.0-2.0); ABG HCO3 15.9 MMOL/L (22.0-26.0); ABG O2 SATURATION 91.1 % (95.0-99.0); ABG PARTIAL PRESSURE CO2 29.7 mmHg (35.0-45.0); ABG PARTIAL PRESSURE O2 62.3 mmHg (75.0-100.0); ABG STANDARD HCO3 18.3 MMOL/L. (22.0-26.0); ABG TOTAL CO2 16.8 MMOL/L (23.0-31.0); ABG pH (ARTERIAL) 7.346 UNITS (7.350-7.450)
[2023-10-09] MEDS: LEVEMIR (INSULIN DETEMIR) 1 UNITS/0.01ML SC ONE (18:41)
[2023-10-09 18:52] LABS: BASO # 0.1 10^3/uL (0.0-0.2); BASO % 0.2 % (0.0-1.0); HEMATOCRIT 56.5 % (42.0-52.0); LYMPH # 0.8 10^3/uL (1.5-5.0); LYMPH % 4.2 % (24.0-44.0); MEAN CORPUSCULAR HEMOGLOBIN 31.2 pg (27.0-33.0); MEAN CORPUSCULAR VOLUME 91.7 fl (80.0-96.0); MONO # 1.1 10^3/uL (0.0-0.8); MONO % 5.4 % (2.0-8.0); NEUTROPHILS # 18.2 10^3/uL (1.5-8.5); NEUTROPHILS % 89.7 % (36.0-66.0); PLATELET COUNT, AUTOMATED 195 10^3/uL (150-450); WHITE BLOOD COUNT 20.2 10^3/uL (4.0-10.0)
[2023-10-09 18:57] LABS: ACETONE/KETONE 0.3 MMOL/L (0.02-0.27)
[2023-10-09 19:04] LABS: RED BLOOD COUNT 6.16 10^6/uL (4.30-6.10)
[2023-10-09 19:05] LABS: HEMOGLOBIN 19.2 g/dl (13.5-17.5)
[2023-10-09] MEDS: BISACODYL 10MG SUPP PR ONE (19:30)
[2023-10-09] MEDS: DOBUTamine HCL 500,000 MCG in IV 1 EA IV SCH (19:38)
[2023-10-09] MEDS ORDERED: GLUCAGON INJ 1MG VIAL As Ordered ONE (20:24)
[2023-10-09] MEDS: GLUCAGON INJ 1MG VIAL IV STA (20:45)
[2023-10-09] MEDS ORDERED: D5W IV SCH (20:50)
[2023-10-09] MEDS ORDERED: GLUCAGON IV SCH (20:50)
[2023-10-09] MEDS: PIPERACILLIN/TAZOBACTAM SOD 4.5 GM in D5W MINI-BAG PLUS 50 ML IV SCH (21:34)
[2023-10-09] MEDS: HYDROCORTISONE 100MG/2ML VIAL IV SCH (21:34)
[2023-10-09] MEDS: NS 500 ML IV PRN (21:48)
[2023-10-09] MEDS: EPINEPHrine HCL INJ 4 MG in D5W 960 ML IV SCH (22:13)
[2023-10-10] VITALS (79 sets, daily range): BP systolic 66–110; BP diastolic 44–63; TEMP 97–101.2; O2SAT 93–98
[2023-10-10 04:51] LABS: MEAN CORPUSCULAR HEMOGLOBIN 30.7 pg (27.0-33.0); MEAN CORPUSCULAR HGB CONC 32.3 g/dl (32.0-36.5); MEAN CORPUSCULAR VOLUME 95.2 fl (80.0-96.0); PLATELET COUNT, AUTOMATED 155 10^3/uL (150-450); RED BLOOD COUNT 5.57 10^6/uL (4.30-6.10); WHITE BLOOD COUNT 18.9 10^3/uL (4.0-10.0)
[2023-10-10 04:52] LABS: HEMOGLOBIN 17.1 g/dl (13.5-17.5)
[2023-10-10 05:15] LABS: ALBUMIN 2.3 G/DL (3.2-5.2); BILIRUBIN,TOTAL 1.6 MG/DL (0.3-1.2); CREATININE FOR GFR 3.98 MG/DL (0.70-1.30); GLOMERULAR FILTRATION RATE 15.9 (>42); POTASSIUM SERUM 4.2 MMOL/L (3.5-5.1); TOTAL PROTEIN 5.3 G/DL (5.7-8.2)
[2023-10-10 05:25] LABS: ATYPICAL LYMPH 3 % (0-5); LYMPHOCYTES 12 % (16-44); MONOCYTES 7 % (0-5); NEUTROPHILS 61 % (28-66)
[2023-10-10 05:26] LABS: PLATELET ESTIMATE NORMAL (NORMAL)
[2023-10-10 05:29] LABS: ANISOCYTOSIS 1+
[2023-10-10] MEDS ORDERED: VANCOMYCIN HCL 1,000 MG, VIAL MATE ADAPTER 1 EACH in D5W 250 ML IV SCH (08:00)
[2023-10-10 08:02] LABS: ABG BASE EXCESS -14.7 (-2.0-2.0); ABG HCO3 9.5 MMOL/L (22.0-26.0); ABG O2 SATURATION 92.6 % (95.0-99.0); ABG PARTIAL PRESSURE CO2 21.2 mmHg (35.0-45.0); ABG PARTIAL PRESSURE O2 69.4 mmHg (75.0-100.0); ABG STANDARD HCO3 13.7 MMOL/L. (22.0-26.0); ABG TOTAL CO2 10.1 MMOL/L (23.0-31.0); ABG pH (ARTERIAL) 7.268 UNITS (7.350-7.450)
[2023-10-10] MEDS: PHENYLEPHRINE HCL INJ 50 MG in NS 495 ML IV SCH (08:14)
[2023-10-10 08:17] LABS: IONIZED CALCIUM 4.3 MG/DL (4.5-5.3)
[2023-10-10] MEDS: VANCOMYCIN HCL 1,000 MG, VIAL MATE ADAPTER 1 EACH in NS 250 ML IV SCH (08:52)
[2023-10-10] MEDS: LR 1,000 ML IV SCH (09:16)
[2023-10-10] MEDS: LEVEMIR (INSULIN DETEMIR) 1 UNITS/0.01ML SC SCH (09:23)
[2023-10-10 09:56] LABS: ACETONE/KETONE 0.21 MMOL/L (0.02-0.27)
[2023-10-10] MEDS: CALCIUM GLUCONATE 1,000 MG in D5W MINI-BAG PLUS 100 ML IV ONE ×2 (09:58→10:26)
[2023-10-10] MEDS ORDERED: D5W IV ONE (10:00)
[2023-10-10] MEDS ORDERED: METHYLENE BLUE 0.5% IV ONE (10:00)
[2023-10-10] MEDS: PIPERACILLIN IV SCH (11:56)
[2023-10-10] MEDS: TAZOBACTAM SOD IV SCH (11:56)
[2023-10-10] MEDS: NS MINI IV SCH (11:56)
[2023-10-10] MEDS: SENNA SYRUP 5ML UDC PO ONE (15:08)
[2023-10-10] MEDS ORDERED: SENNA SYRUP 5ML UDC PO PRN (21:00)
[2023-10-10] MEDS: BISACODYL 10MG SUPP PR ONE (21:52)
[2023-10-11] VITALS (50 sets, daily range): BP systolic 30–129; BP diastolic 23–67; TEMP 99.5–101.1; O2SAT 92–97
[2023-10-11 04:21] LABS: HEMATOCRIT 46.8 % (42.0-52.0); HEMOGLOBIN 15.9 g/dl (13.5-17.5); MEAN CORPUSCULAR HEMOGLOBIN 31.3 pg (27.0-33.0); MEAN CORPUSCULAR VOLUME 92.1 fl (80.0-96.0); RED BLOOD COUNT 5.08 10^6/uL (4.30-6.10); WHITE BLOOD COUNT 16.2 10^3/uL (4.0-10.0)
[2023-10-11 04:50] LABS: PLATELET COUNT, AUTOMATED 90 10^3/uL (150-450)
[2023-10-11 05:06] LABS: INR 13.23; PARTIAL THROMBOPLASTIN TIME 111.9 SECONDS (24.8-34.2)
[2023-10-11 05:16] LABS: ANISOCYTOSIS 1+; ATYPICAL LYMPH 1 % (0-5); BURR CELLS 1+; LYMPHOCYTES 9 % (16-44); METAMYELOCYTES 5 % (0-0); MONOCYTES 11 % (0-5); NEUTROPHILS 59 % (28-66); PLATELET ESTIMATE DECREASED (NORMAL)
[2023-10-11 05:17] LABS: TOXIC GRANULATION 1+
[2023-10-11 05:42] LABS: ALKALINE PHOSPHATASE 55 U/L (46-116); ALT/SGPT 252 U/L (7.0-40); AST/SGOT 422 U/L (<34); BILIRUBIN,TOTAL 0.9 MG/DL (0.3-1.2); BLOOD UREA NITROGEN 87 MG/DL (9-23); CALCIUM LEVEL 4.1 MG/DL (8.3-10.6); CARBON DIOXIDE LEVEL < 10.0 MMOL/L (20-31); CHLORIDE LEVEL 113 MMOL/L (98-107); CREATININE FOR GFR 2.78 MG/DL (0.70-1.30); GLOMERULAR FILTRATION RATE 24.1 (>42); GLUCOSE, FASTING 121 MG/DL (74-106); POTASSIUM SERUM 2.6 MMOL/L (3.5-5.1); SODIUM LEVEL 138 MMOL/L (136-145); TOTAL PROTEIN 2.6 G/DL (5.7-8.2)
[2023-10-11] MEDS: CALCIUM GLUCONATE 1,000 MG in D5W MINI-BAG PLUS 100 ML IV SCH (06:27)
[2023-10-11] MEDS: KCL 20MEQ IN 100ML SWI (KRUN) 20 MEQ in IV 1 EA IV SCH ×2 (06:35→09:22)
[2023-10-11] MEDS: PHYTONADIONE INJection 10 MG in NS 50 ML IV ONE (06:47)
[2023-10-11] MEDS: LR 1,000 ML IV STA (08:38)
[2023-10-11 08:41] LABS: ABG BASE EXCESS -11.9 (-2.0-2.0); ABG HCO3 12.1 MMOL/L (22.0-26.0); ABG PARTIAL PRESSURE CO2 24.4 mmHg (35.0-45.0); ABG PARTIAL PRESSURE O2 61.7 mmHg (75.0-100.0); ABG STANDARD HCO3 15.3 MMOL/L. (22.0-26.0); ABG TOTAL CO2 12.8 MMOL/L (23.0-31.0); ABG pH (ARTERIAL) 7.313 UNITS (7.350-7.450)
[2023-10-11] MEDS: EPINEPHrine HCL INJ 4 MG in D5W 960 ML IV SCH (09:00)
[2023-10-11] MEDS: LR 1,000 ML IV SCH (09:31)
[2023-10-11] MEDS ORDERED: NOREPINEPHRINE 4MG IN D5 250ML 4 MG in IV 1 EA IV SCH (10:22)
[2023-10-11] MEDS ORDERED: MORPHINE 2 MG/ML 1ML VIAL IV PRN (12:05)
[2023-10-11] MEDS ORDERED: ONDANSETRON 4MG 2ML VIAL IV PRN (12:05)
[2023-10-11] MEDS ORDERED: SCOPOLAMINE 1MG TRANSDERMAL PATCH TOP PRN (12:05)
[2023-10-11] MEDS: LORazepam 2 MG/ML 1ML VIAL IV PRN (12:14)
[2023-10-11] MEDS: MORPHINE 4 MG/ML 1ML VIAL IV PRN (12:20)
== END 2023-10-11 13:18 | disposition expired | DRG 871 ==
LOC: M ED 03:54 → EDBD 03:54 → M ED INP 08:17 → M ICU 09:22
PROVIDERS: ADMIT Internal Medicine Pulmonary Disease; ATTEND Internal Medicine Pulmonary Disease
PROC: 30233J1 Transfusion of Nonautologous Serum Albumin into Peripheral Vein, Percutaneous Approach (ICD-10-PCS; principal; 2023-10-09)
PROC: 03HY32Z Insertion of Monitoring Device into Upper Artery, Percutaneous Approach (ICD-10-PCS; 2023-10-09)
PROC: 04HK33Z Insertion of Infusion Device into Right Femoral Artery, Percutaneous Approach (ICD-10-PCS; 2023-10-09)
PROC: B246ZZZ Ultrasonography of Right and Left Heart (ICD-10-PCS; 2023-10-10)
DX: A41.9 Sepsis, unspecified organism (principal); G93.41 Metabolic encephalopathy; J96.01 Acute respiratory failure with hypoxia; J96.22 Acute and chronic respiratory failure with hypercapnia; R65.21 Severe sepsis with septic shock; I21.A1 Myocardial infarction type 2; N02.B9 Other recurrent and persistent immunoglobulin A nephropathy; I13.0 Hypertensive heart and chronic kidney disease with heart failure and stage 1 through stage 4 chronic kidney disease, or unspecified chronic kidney disease; I50.32 Chronic diastolic (congestive) heart failure; N17.9 Acute kidney failure, unspecified; M62.82 Rhabdomyolysis; E87.1 Hypo-osmolality and hyponatremia; Z68.42 Body mass index [BMI] 45.0-49.9, adult; K56.7 Ileus, unspecified; E87.20 Acidosis, unspecified; Z66 Do not resuscitate; M10.9 Gout, unspecified; R57.1 Hypovolemic shock; I48.91 Unspecified atrial fibrillation; N18.32 Chronic kidney disease, stage 3b; I25.10 Atherosclerotic heart disease of native coronary artery without angina pectoris; E78.5 Hyperlipidemia, unspecified; E11.43 Type 2 diabetes mellitus with diabetic autonomic (poly)neuropathy; E11.42 Type 2 diabetes mellitus with diabetic polyneuropathy; E11.22 Type 2 diabetes mellitus with diabetic chronic kidney disease; E87.6 Hypokalemia; D75.1 Secondary polycythemia; E83.51 Hypocalcemia; I73.9 Peripheral vascular disease, unspecified; K31.84 Gastroparesis; E11.51 Type 2 diabetes mellitus with diabetic peripheral angiopathy without gangrene; K76.9 Liver disease, unspecified; G47.33 Obstructive sleep apnea (adult) (pediatric); K21.9 Gastro-esophageal reflux disease without esophagitis; Z86.711 Personal history of pulmonary embolism; Z86.718 Personal history of other venous thrombosis and embolism; Z95.5 Presence of coronary angioplasty implant and graft; Z98.42 Cataract extraction status, left eye; Z87.891 Personal history of nicotine dependence; Z79.82 Long term (current) use of aspirin; Z79.4 Long term (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 insulin; Z79.01 Long term (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 anticoagulants; Z88.8 Allergy status to other drugs, medicaments and biological substances